=== PATIENT | male | born 1940 | race Caucasian/White ===

== ENCOUNTER 2016-10-18 05:26 | Inpatient (IN) | payer OTHER ==
[2016-09-25 09:32] VITALS: BMI 27.0
--- NOTE | 2016-09-25 10:21 | PAT Medication Instructions ---
Service Date Sep 25, 2016. Current Home Medication List Celecoxib (CeleBREX), 200 MG PO BID Fluticasone Prop/Salmeterol (Advair Diskus 250/50 60 Dose), 1 PUFF INH BID Hydrochlorothiazide (Hctz), 25 MG PO QAM Ipratropium-Albuterol (Combivent Respimat), 1 PUFFS INH QID Lisinopril (Lisinopril), 1 TAB PO QAM Menthol (Topical Analgesic) (Biofreeze Roll-On), 1 APPL TOP QID Ranitidine (Zantac), 150 MG PO QAM Tamsulosin Hcl (Flomax), 0.4 MG PO HS Medication Instructions For Your Scheduled Surgery - Hold the following medications 24 hours prior to surgery: Menthol (Topical Analgesic) (Biofreeze Roll-On), 1 APPL TOP QID Cialis - Hold the following medications the morning of surgery: Lisinopril (Lisinopril), 1 TAB PO QAM Hydrochlorothiazide (Hctz), 25 MG PO QAM Celecoxib (CeleBREX), 200 MG PO BID (can continue per surgeon) - Take the following medications the morning of surgery with a sip of water: Ranitidine (Zantac), 150 MG PO QAM Ipratropium-Albuterol (Combivent Respimat), 1 PUFFS INH QID Fluticasone Prop/Salmeterol (Advair Diskus 250/50 60 Dose), 1 PUFF INH BID - Take the following medications as scheduled the night before surgery: Tamsulosin Hcl (Flomax), 0.4 MG PO HS Ipratropium-Albuterol (Combivent Respimat), 1 PUFFS INH QID Fluticasone Prop/Salmeterol (Advair Diskus 250/50 60 Dose), 1 PUFF INH BID If you have any questions please call us at [phone] or [phone] ( Malika) or [phone]
[2016-09-25 11:27] LABS: BASO % 0.8 %; BASO ABS # 0.05 K/uL (0-0.2); COMPLETE YES; EOS % 2.6 %; HEMATOCRIT 39.7 % (42-52); IG% 0.2 %; LYMPH % 21.4 %; LYMPH ABS # 1.39 K/uL (1.2-3.4); MEAN CELL VOLUME 92.5 fL (80-100); MEAN CORPUSCULAR HEMOGLOBIN 31.7 pg (25-34); MEAN CORPUSCULAR HGB CONC 34.3 g/dl (32-36); MEAN PLATELET VOLUME 9.9 fL (7.4-10.4); MONO % 7.1 %; NEUT % 67.9 %; PLATELET COUNT 208 K/uL (130-400); RED BLOOD COUNT 4.29 M/uL (4.7-6.1); WHITE BLOOD COUNT 6.49 K/uL (4.8-10.8)
[2016-09-25 11:37] LABS: PARTIAL THROMBOPLASTIN RATIO 1.1; PROTHROMBIN TIME (PATIENT) 10.9 SECONDS (9.0-12.0)
[2016-09-25 11:53] LABS: BUN/CREATININE RATIO 18.4 (10-20); C-REACTIVE PROTEIN 0.41 mg/dl (0-0.29); CALCIUM 9.3 mg/dl (8.5-10.1); CREATININE 1.4 mg/dl (0.60-1.40); POTASSIUM 4.2 mmol/L (3.5-5.1)
--- NOTE | 2016-10-13 10:38 | HISTORY & PHYSICAL EXAMINATION ---
DATE OF ADMISSION: 10/18/2016 CHIEF COMPLAINT: Left hip pain. HISTORY OF PRESENT ILLNESS: This is a 76-year-old very active gentleman who is well known to me from previous right hip replacement done in 2013. He has done well on this side. Over the past 2 years, he has developed increased pain and discomfort in his left hip and groin area. He has been managed by my partner Dr. Elias. He had 2 intraarticular hip joint injections. The first one helped quite a bit, but the second one did not help much at all. He describes groin pain, thigh pain. It is limiting his activities. He would like to have his left hip replaced. PAST MEDICAL HISTORY: 1. Hypertension. 2. COPD. Quit smoking 10 months ago. 3. Arthritis. PAST SURGICAL HISTORY: Include: 1. Right total hip replacement done 03/23/2014. 2. Appendectomy. ALLERGIES: PENICILLIN WHICH CAUSES HIVES. NO RESPIRATORY PROBLEMS. CURRENT MEDICINES: Include: 1. Lisinopril 15 mg a day. 2. Hydrochlorothiazide 25 mg. 3. Celebrex 200 mg. 4. Flex-a-min. SOCIAL HISTORY: A 76-year-old gentleman. He is a patient of Dr. Payton. He is quite active. He recently quit smoking 10 months ago. FAMILY HISTORY: Noncontributory. REVIEW OF SYSTEMS: Significant for COPD. Denies any chest pain or shortness of breath. No history of DVT or PE. No bleeding problems. PHYSICAL EXAMINATION: GENERAL: Reveals a healthy pleasant elderly male. He looks to be in good health. HEAD, EYES, EARS, NOSE, AND THROAT EXAMINATION: Benign. NECK: Supple. No lymphadenopathy. LUNGS: Clear to auscultation. HEART: Has a regular rate and rhythm. ABDOMEN: Soft, nontender, nondistended. EXTREMITY EXAMINATION: Grossly neurovascularly intact except as follows: Examination of the left leg reveals the patient walks with a slight bit of a limp. He is about a 0.5 cm short on the left side compared to the right. He does have pain with any type of hip motion. He has got limited internal rotation to neutral. External rotation at 20 degrees. Negative straight leg raise. X-RAYS: X-rays of the left hip revealed advanced left hip DJD. He has got complete loss of his superior joint space. This has progressed significantly over the past year. The right hip replacement looks to be in good position. ASSESSMENT: A 76-year-old gentleman 2.5 years out from right hip replacement with advanced left hip degenerative joint disease gradually progressive over the past 2 years. He has failed conservative treatment and would like to have his left hip replaced. PLAN: We are going to take him to the operating room and do a left total hip replacement. The risks and benefits of this procedure were explained to the patient including but not limited to DVT, PE, , infection, neurological injury, vascular injury, bleeding problem, pain, range of motion, stiffness, failure to relieve his symptoms, incomplete relief of symptoms, need for further surgery in the future, leg length inequality, nerve palsy, dislocation, need for blood transfusion, etc. The patient understands and desires to proceed. Informed consent was obtained. We did talk to him about holding his lisinopril the morning of surgery. He is planning to be discharged to home with some home health using the [email or web address] home health program. I will see him back 2 weeks postop.
[2016-10-18] VITALS (24 sets, daily range): BP systolic 102–136; BP diastolic 56–80; PULSE 64–85; TEMP 36.3–37.4; O2SAT 92–98; Ht 177.8 cm; Wt 84.9 kg
[~2016-10-18] VITALS: Ht 177.8 cm; Wt 84.9 kg
[~2016-10-18 05:26] MED LIST: CIALIS; CLB/200 PO; LSN20 PO; MENT1800 TOP; TAMS0.4C38 PO
[2016-10-18] MEDS ORDERED: LACTATED RINGER'S 500 ML IV SCH (06:00)
[2016-10-18] MEDS ORDERED: VANCOMYCIN INJ 1,250 MG in SODIUM CHLORIDE 0.9% 250ML 250 ML IV SCH (06:00)
[2016-10-18] MEDS ORDERED: SCOPOLAMINE 1.5 MG TDSY TD SCH (06:00)
[2016-10-18] MEDS ORDERED: LACTATED RINGER'S 1000ML IV SCH (06:00)
[2016-10-18] MEDS ORDERED: FAMOTIDINE 20 MG TAB PO SCH (06:00)
[2016-10-18] MEDS ORDERED: TRANEXAMIC ACID INJ 1,000 MG in SODIUM CHLORIDE 0.9% 100ML 100 ML IV SCH (06:00)
[2016-10-18] MEDS ORDERED: ACETAMINOPHEN 500 MG TAB PO SCH (06:00)
[2016-10-18] MEDS ORDERED: GABAPENTIN 300 MG CAP PO SCH (06:00)
[2016-10-18] MEDS ORDERED: METOCLOPRAMIDE HCL 10 MG TAB PO SCH (06:00)
[2016-10-18] MEDS ORDERED: MIDAZOLAM HCL 1 MG/ML 2ML VIAL ONE ×2 (06:17→07:31)
[2016-10-18] MEDS ORDERED: FENTANYL CITRATE INJ 50 MCG/1 ML 2 ML VIAL ONE (06:17)
[2016-10-18] MEDS ORDERED: PROPOFOL IV EMULSION 10 MG/ML 20 ML VIAL IV ONE (06:19)
[2016-10-18] MEDS ORDERED: MoRPHine SULFATE PF 1 MG/ML 10 ML AMP/VIAL ONE (06:22)
[2016-10-18] MEDS ORDERED: BUPIVACAINE 0.5 % 5 MG/1 ML PF 10ML VIAL ONE (06:31)
[2016-10-18] MEDS ORDERED: BUPIVACAINE LIPOSOME 1/3% 266 MG/20 ML VIAL INFIL ONE (06:50)
--- NOTE | 2016-10-18 06:50 | History & Physical Bridge Note ---
H&P Re-Evaluation Bridge Note: I have examined the patient, reviewed the History & Physical and in the interval since the performance of the History & Physical I have noted the following changes of clinical significance: No changes noted
[2016-10-18] MEDS ORDERED: NALOXONE HCL INJ 0.08 MG in SYRINGE 1.8 ML IV PRN (07:22)
[2016-10-18] MEDS ORDERED: SODIUM CHLORIDE 0.9% 1000ML 1,000 ML IV PRN (07:22)
[2016-10-18] MEDS ORDERED: LACTATED RINGER'S 1000ML 500 ML IV PRN (07:22)
[2016-10-18] MEDS ORDERED: NALOXONE HCL INJ 1 MG in SODIUM CHLORIDE 0.9% 1000ML 1,000 ML IV PRN (07:22)
[2016-10-18] MEDS ORDERED: ATROPINE SULFATE 0.1 MG/ML 5ML SYR IV PRN (07:30)
[2016-10-18] MEDS ORDERED: EpHEDrine SULFATE INJ 50 MG/ML AMP IV PRN ×2 (07:30)
[2016-10-18] MEDS ORDERED: MoRPHine SULFATE 2 MG/ML CARP IV PRN (07:30)
[2016-10-18] MEDS ORDERED: ONDANSETRON INJ 2 MG/ML 2 ML VIAL IV PRN (07:30)
[2016-10-18] MEDS ORDERED: NALBUPHINE HCL INJ 10 MG/ML AMP IV PRN (07:30)
[2016-10-18] MEDS ORDERED: MoRPHine SULFATE PF 1 MG/ML 10 ML AMP/VIAL INT SPINAL PRN (07:30)
[2016-10-18] MEDS ORDERED: NALOXONE HCL 0.4 MG/1 ML VIAL/CARP IV PRN (07:30)
[2016-10-18] MEDS ORDERED: FENTANYL CITRATE INJ 50 MCG/1 ML 2 ML VIAL IV PRN (07:30)
[2016-10-18] MEDS ORDERED: DiphenhydrAMINE HCL 50 MG/ML VIAL IV PRN (07:30)
[2016-10-18] MEDS ORDERED: NO NARCOTICS OR SEDATIVES SCH (07:30)
[2016-10-18] MEDS ORDERED: PHENYLEPHRINE HCL INJ 10 MG/ML VIAL ONE (07:50)
[2016-10-18] MEDS ORDERED: BACITRACIN 50000 UNIT VIAL IR ONE (08:25)
[2016-10-18] MEDS ORDERED: BUPIVACAINE/EPINEPHRINE 0.5% MPF 1:200,000 30 ML VIAL INJ ONE (08:25)
[2016-10-18] MEDS ORDERED: MAGNESIUM HYDROXIDE SUSP 30 ML UDC PO PRN (08:45)
[2016-10-18] MEDS ORDERED: BISACODYL 10 MG SUPP PR PRN (08:45)
[2016-10-18] MEDS ORDERED: ALUMINUM/MAGNESIUM/SIMETH (MAALOX MAX) 30 ML UDC PO PRN (08:45)
[2016-10-18] MEDS ORDERED: SILVER SULFADIAZINE 1% CR 50 GM JAR EXT PRN (08:45)
[2016-10-18] MEDS ORDERED: TAMSULOSIN HCL 0.4 MG CAP PO PRN (08:45)
--- NOTE | 2016-10-18 08:45 | [facility] Post Operative Brief Note ---
Immediate Operative Summary Operative Date Oct 18, 2016. Pre-Operative Diagnosis Degenerative Joint Disease Left Hip. Post-Operative Diagnosis Same as preoperative. Procedure(s) Performed Left Total Hip Arthroplasty Surgeon Aviation Medicine Specialist Surgeon(s) Jacob Fountain PA-C Estimated Blood Loss 300ML Findings Left Hip DJD Fluids (cc crystalloids) 1300 cc Specimens A. Left Femoral Head Drains None Anesthesia Spinal Complication(s) None Disposition Recovery Room / PACU
--- NOTE | 2016-10-18 09:24 | DIAGNOSTIC IMAGING REPORT ---
AP PELVIS, CROSSTABLE LATERAL LEFT HIP History: Left total hip arthroplasty. Degenerative arthritis. Postop. FINDINGS: The patient is status post a left total hip arthroplasty. The hardware is intact. No fracture or dislocation. Skin yarely are in place. IMPRESSION: Left total hip arthroplasty. No evidence for hardware complication. Electronically signed by: Mt Burroughs M.D. 10/18/2016 9:22 AM Dictated Date/Time: 10/18/2016 9:22 AM
--- NOTE | 2016-10-18 09:27 | Anesthesiology Progress Note ---
Anesthesia Post Op Note Date & Time Oct 18, 2016 at 09:27 Vital Signs Pain Intensity: 0 Vital Signs Past 12 Hours Date Time Temp Pulse Resp B/P Pulse Ox O2 Delivery O2 Flow Rate FiO2 10/18/16 09:15 61 20 118/60 94 Nasal Cannula 2 10/18/16 09:05 66 20 106/53 92 Nasal Cannula 2 10/18/16 08:55 69 21 118/58 94 Nasal Cannula 2 10/18/16 08:46 36.2 68 14 104/50 99 Nasal Cannula 2 10/18/16 06:11 36.7 71 20 125/59 94 Room Air Notes Mental Status: alert / awake / arousable, participated in evaluation Pt Amnestic to Procedure: Yes Nausea / Vomiting: adequately controlled Pain: adequately controlled Airway Patency, RR, SpO2: stable & adequate BP & HR: stable & adequate Hydration State: stable & adequate Neuraxial Anesthesia: was administered, sensory block is resolving Anesthetic Complications: no major complications apparent
[2016-10-18] MEDS ORDERED: KETOROLAC TROMETHAMINE 15 MG/ML VIAL IV. SCH (12:00)
[2016-10-18] MEDS: MULTIVITAMIN TAB PO SCH (12:21)
[2016-10-18] MEDS: PANTOprazole SOD 40 MG TAB PO SCH (12:21)
[2016-10-18] MEDS: DOCUSATE SODIUM 100 MG CAP PO SCH ×2 (12:21→20:22)
[2016-10-18] MEDS: D5W AND 1/2NSS + 20MEQ KCL 1,000 ML IV SCH ×2 (12:24→20:18)
[2016-10-18] MEDS: FERROUS GLUCONATE 324 MG TAB PO SCH ×2 (12:30→18:59)
[2016-10-18] MEDS: MENTHOL-ZINC OXIDE 360 APPLN/120 GM TUBE EXT SCH ×3 (13:00→20:18)
[2016-10-18] MEDS: IPRATROPIUM BROMIDE/ALBUTEROL respimat INH INH SCH ×3 (13:02→20:20)
[2016-10-18] MEDS: FLUTICASONE/SALMETEROL 250/50 (ADVAIR) 14 PUFF/1 INHALER INH SCH ×2 (13:02→20:20)
[2016-10-18] MEDS: ACETAMINOPHEN 500 MG TAB PO SCH ×2 (13:44→21:35)
[2016-10-18] MEDS: LISINOPRIL 20 MG TAB PO SCH (13:44)
[2016-10-18] MEDS: RANITIDINE HCL 150 MG TAB PO SCH (13:44)
[2016-10-18] MEDS: HYDROCHLOROTHIAZIDE 25 MG TAB PO SCH (13:44)
[2016-10-18] MEDS ORDERED: TRANEXAMIC ACID INJ 1,000 MG in SODIUM CHLORIDE 0.9% 100ML 100 ML IV ONE (15:00)
--- NOTE | 2016-10-18 15:39 | PROGRESS NOTE ---
DATE: 10/18/2016 SUBJECTIVE: A 76-year-old gentleman postop from a left total hip replacement. He is doing well. Not really having any pain. No chest pain or shortness of breath. Not feeling dizzy or lightheaded. OBJECTIVE: VITAL SIGNS: Temperature 36.8. Vital signs stable. PHYSICAL EXAMINATION: GENERAL: Reveals a healthy, pleasant, elderly male. He is sitting up in bed and looks quite comfortable. He is talking to his family. LUNGS: Clear to auscultation. HEART: Has a regular rate and rhythm. ABDOMEN: Soft, nontender, nondistended. EXTREMITIES: Grossly neurovascularly intact except as follows: Examination of the left leg reveals the leg to be well aligned. Dressing is clean, dry and intact. His hip is located. He is neurologically intact. He can dorsiflex and plantarflex his foot appropriately. X-RAYS: X-rays of the left hip from recovery room reviewed. It shows a left uncemented total hip arthroplasty. Components looked to be in good position. No signs of problems. ASSESSMENT: A 76-year-old gentleman postop from a left total hip replacement, doing well. His hip is located. He is neurologically intact. His pain is controlled. PLAN: 1. DVT prophylaxis including thigh-high TEDs, SCDs, and aspirin twice a day. 2. PT/OT. Weightbearing as tolerated. Right total hip protocol. 3. Pain control. Doing well with current pain regimen. 4. IV antibiotics x24 hours. 5. Disposition: He is hoping to be discharged to home with some home health once adequately recovered.
[2016-10-18] MEDS: CHECK SCOPOLAMINE PATCH PLACEMENT SCH (16:22)
--- NOTE | 2016-10-18 16:27 | OPERATIVE REPORT ---
DATE OF OPERATION: 10/18/2016 SURGEON: Sundar Roth MD CORPORATE SECURITIES RESEARCH ANALYST: KAYLIN Magana PREOPERATIVE DIAGNOSIS: Left hip degenerative joint disease. POSTOPERATIVE DIAGNOSIS: Same. PROCEDURE PERFORMED: Left uncemented total hip arthroplasty. COMPLICATIONS: None. ESTIMATED BLOOD LOSS: 300 mL. FLUID REPLACEMENT: 1300 mL crystalloid fluid replacement. ANESTHESIA: Spinal. DRAINS: None. SPECIMENS: Left femoral head sent for pathology. OPERATIVE INDICATIONS: The patient is a 76-year-old very active gentleman who has had a long history of hip problems in the past. He underwent a right hip replacement about 2-1/2 years ago and has done well from this. Over the past 2 years, he developed increased pain and discomfort in his left hip. He has been unresponsive to conservative treatment. X-rays showed progressive and advanced left hip DJD. The patient elected to proceed with operative treatment. OPERATIVE FINDINGS: Operative findings revealed advanced left hip DJD. 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 Fairly stiff hip as well. He did have a moderate sized hip joint effusion. OPERATIVE IMPLANTS: Operative implants consisted of: 1. Biomet G7 size 54-mm acetabular shell. 2. An apex hole eliminator. 3. A 6.5 cancellous acetabular screws, one at 35 mm length and one at 25 mm in length. 4. A highly cross-linked polyethylene insert with a 54 mm outer diameter and 36 mm inner diameter. 5. A DePuy size 15 small stature AML femoral stem. 6. A +5/36 mm metal articular ball. OPERATIVE PROCEDURE: The patient was taken to the operating room, identified and placed on the operating table in the supine position. All contact areas were appropriately padded. IV antibiotics were provided by the anesthesia team. A spinal anesthetic had been implemented in the holding area. Peña catheter was placed in sterile fashion. The patient was then placed in the right lateral decubitus position. An axillary roll was placed. A Stulberg hip positioner was used for positioning. The left hip and leg were then prepped and draped in the usual sterile fashion. A Posterolateral approach to the hip was then performed through a curvilinear incision centered over the greater trochanter. Sharp dissection was carried out through the subcutaneous tissue down to the level of the IT band and gluteal fascia. The IT band and gluteal fascia were then incised longitudinally in line with skin incision. The underlying greater trochanteric bursa was excised. Of note, his hip abductor muscles were unusually well developed. The piriformis and external rotators were then tagged and taken off the posterior aspect of the femur. Great care was taken throughout the procedure to protect the sciatic nerve at all times. Posterior capsulotomy was then performed leaving a large flap for later repair. Hip was internally rotated and dislocated. Femoral neck osteotomy cut was then made with the final cut 12 mm above the lesser trochanter. Femoral head was removed and sent for pathology. The femur was retracted anteriorly. Attention was then drawn to the acetabulum. The acetabular labrum was excised. The pulvinar fat was excised. Sequential reaming of the acetabulum was then performed beginning with a size 47 and progressing up to a 53. A 54-mm Biomet G7 acetabular shell was then placed in about 40 degrees of lateral opening and 20 degrees of anteversion. It was fixed with two 6.5 cancellous acetabular screws. A trial liner was placed. Attention was then drawn to the femur. Proximal femur was entered with cookie cutter followed by canal finder and lateralizing reamer. Sequential reaming of the femur was then performed beginning with a size 10 and progressing up to 14.5. We got excellent chatter at 14.5. We broached beginning with a size 10.5 small broach and progressing to a 15 small. I did not feel like I could likely get the 15 large broach in. The other side had a 13.5 large stem and I could not quite get that to the calcar at that time. Therefore, we elected to stick with a small implant. A calcar reamer was used to smoothen off to cart calcar. We then trialed the hip and the +5/36 mm articular ball provided full stability and full extension and external rotation and flexion to 90 degrees, internal rotation to 60+ degrees. Leg lengths appropriately. Attention was then drawn toward placement of permanent components. All trial components were removed. An apex hole eliminator was placed. Highly cross-linked polyethylene liner was placed. A 15 small stature AML femoral stem was placed. We got excellent scratch fit. A +5/36 mm metal articular ball was placed. Hip was located and once again found to be stable. Attention was then drawn toward closing. The wound was irrigated with copious amounts of pulsatile lavage solution. The posterior capsule and external rotators were repaired through drill holes in the posterior trochanter with #2 Ti-Cron suture. The IT band and gluteal fascia were then closed with #1 PDS suture in running fashion. The subcutaneous tissues were then closed with 2 layers of the deep layer with #1 Vicryl suture and subcutaneous tissues with 2-0 Dexon suture in a buried interrupted fashion. Skin was closed skin yarely. Leg was then cleaned and dried and a sterile dressing of Xeroform, 4 x 4, sterile ABD pad and foam tape was applied. The patient then transferred to the recovery room in stable condition. The patient tolerated the procedure well with no complications. All needle and sponge counts were correct at the end of the operation. I attest to the content of the Intraoperative Record and any orders documented therein. Any exceptions are noted below. SANJANAD
[2016-10-18] MEDS ORDERED: VANCOMYCIN INJ 1,300 MG in SODIUM CHLORIDE 0.9% 250ML 250 ML IV SCH (19:00)
[2016-10-18] MEDS: TAMSULOSIN HCL 0.4 MG CAP PO SCH (20:22)
[2016-10-18] MEDS: ASPIRIN 325 MG ECTAB PO SCH (20:22)
[2016-10-19] VITALS (10 sets, daily range): BP systolic 90–154; BP diastolic 53–65; PULSE 74–91; TEMP 36.7–37.4; O2SAT 91–96
[2016-10-19] MEDS: CHECK SCOPOLAMINE PATCH PLACEMENT SCH ×3 (00:08→19:03)
[2016-10-19] MEDS ORDERED: DC INTRASPINAL MORPHINE SCH (01:00)
[2016-10-19] MEDS ORDERED: ZOLPIDEM TARTRATE 5 MG TAB PO PRN (01:01)
[2016-10-19] MEDS ORDERED: MoRPHine SULFATE 2 MG/ML CARP IV PRN (01:01)
[2016-10-19] MEDS ORDERED: ONDANSETRON INJ 2 MG/ML 2 ML VIAL IV PRN (01:01)
[2016-10-19] MEDS ORDERED: METOCLOPRAMIDE HCL INJ 5 MG/ML 2 ML VIAL IV PRN (01:01)
[2016-10-19] MEDS ORDERED: DiphenhydrAMINE HCL 50 MG/ML VIAL IV PRN (01:01)
[2016-10-19] MEDS: KETOROLAC TROMETHAMINE 15 MG/ML VIAL IV. SCH ×2 (01:39→08:29)
[2016-10-19] MEDS: D5W AND 1/2NSS + 20MEQ KCL 1,000 ML IV SCH (04:41)
[2016-10-19] MEDS: ACETAMINOPHEN 500 MG TAB PO SCH ×3 (05:48→20:55)
[2016-10-19 07:29] LABS: BASO % 0.4 %; BASO ABS # 0.03 K/uL (0-0.2); COMPLETE YES; EOS % 2.2 %; HEMATOCRIT 29.6 % (42-52); IG% 0.3 %; LYMPH % 14.3 %; LYMPH ABS # 1.13 K/uL (1.2-3.4); MEAN CELL VOLUME 91.9 fL (80-100); MEAN CORPUSCULAR HEMOGLOBIN 31.4 pg (25-34); MEAN CORPUSCULAR HGB CONC 34.1 g/dl (32-36); MEAN PLATELET VOLUME 9.5 fL (7.4-10.4); MONO % 9.6 %; NEUT % 73.2 %; PLATELET COUNT 157 K/uL (130-400); RED BLOOD COUNT 3.22 M/uL (4.7-6.1); WHITE BLOOD COUNT 7.88 K/uL (4.8-10.8)
--- NOTE | 2016-10-19 07:37 | Anesthesiology Progress Note ---
Anesthesia Post Op Note Date & Time Oct 19, 2016 at 07:36 Vital Signs Pain Intensity: 0.0 Vital Signs Past 12 Hours Date Time Temp Pulse Resp B/P Pulse Ox O2 Delivery O2 Flow Rate FiO2 10/19/16 07:19 36.9 75 17 92/53 94 Room Air 10/19/16 03:55 37.3 74 16 92/53 96 Nasal Cannula 2.0 10/19/16 01:00 18 94 10/18/16 23:42 18 94 10/18/16 23:42 94 Nasal Cannula 1.5 10/18/16 23:30 37.4 85 16 102/56 95 Nasal Cannula 1.0 10/18/16 23:15 94 10/18/16 22:20 95 10/18/16 21:20 97 10/18/16 20:20 95 10/18/16 20:06 36.9 82 16 118/57 93 Nasal Cannula 2.0 Notes Mental Status: alert / awake / arousable, participated in evaluation Pt Amnestic to Procedure: Yes Nausea / Vomiting: adequately controlled Pain: adequately controlled Airway Patency, RR, SpO2: stable & adequate BP & HR: stable & adequate Hydration State: stable & adequate Neuraxial Anesthesia: was administered, sensory block resolved Anesthetic Complications: no major complications apparent
[2016-10-19 08:01] LABS: BUN/CREATININE RATIO 13.7 (10-20); CALCIUM 7.6 mg/dl (8.5-10.1); CREATININE 1.6 mg/dl (0.60-1.40); POTASSIUM 3.9 mmol/L (3.5-5.1)
[2016-10-19] MEDS: IPRATROPIUM BROMIDE/ALBUTEROL respimat INH INH SCH ×4 (08:29→20:54)
[2016-10-19] MEDS: FLUTICASONE/SALMETEROL 250/50 (ADVAIR) 14 PUFF/1 INHALER INH SCH ×2 (08:29→20:54)
[2016-10-19] MEDS: MENTHOL-ZINC OXIDE 360 APPLN/120 GM TUBE EXT SCH ×4 (08:30→21:00)
[2016-10-19] MEDS: MULTIVITAMIN TAB PO SCH (08:30)
[2016-10-19] MEDS: FERROUS GLUCONATE 324 MG TAB PO SCH ×3 (08:30→19:05)
[2016-10-19] MEDS: PANTOprazole SOD 40 MG TAB PO SCH (08:30)
[2016-10-19] MEDS: ASPIRIN 325 MG ECTAB PO SCH ×2 (08:30→20:56)
[2016-10-19] MEDS: RANITIDINE HCL 150 MG TAB PO SCH (08:30)
[2016-10-19] MEDS: HYDROCHLOROTHIAZIDE 25 MG TAB PO SCH (08:31)
[2016-10-19] MEDS: LISINOPRIL 20 MG TAB PO SCH (08:31)
[2016-10-19] MEDS: DOCUSATE SODIUM 100 MG CAP PO SCH (08:31)
[2016-10-19] MEDS: TRAMADOL HCL 50 MG TAB PO PRN ×2 (12:59→21:04)
--- NOTE | 2016-10-19 13:37 | PROGRESS NOTE ---
DATE: 10/19/2016 SUBJECTIVE: A 76-year-old gentleman postop day 1 from a left total hip replacement. He is doing well. Pain is controlled. He is just sore. No chest pain or shortness of breath. Not feeling dizzy or lightheaded. OBJECTIVE: VITAL SIGNS: Temperature is 36.9. Vital signs stable. PHYSICAL EXAMINATION: GENERAL: Reveals a pleasant, middle-aged male. He is sitting up at his bedside chair and looks pretty comfortable this morning. LUNGS: Clear to auscultation. HEART: Regular rate and rhythm. ABDOMEN: Soft, nontender, nondistended. EXTREMITIES: Grossly neurovascularly intact except as follows: Examination of the left lower extremity reveals the dressing to be clean, dry and intact. Thigh is soft and supple. Hip is located. He is neurologically intact. LABORATORY DATA: Hemoglobin 10.1, hematocrit 29.6. Electrolytes are stable. Creatinine is just slightly elevated at 1.6. ASSESSMENT: A 76-year-old gentleman postop day 1 from left total hip replacement, doing pretty well. Pain is controlled. Hip is located. He is neurologically intact. PLAN: 1. DVT prophylaxis including thigh-high TEDs, SCDs, and aspirin twice a day. 2. PT/OT. Weightbearing as tolerated. Left total hip protocol. 3. Pain control, doing pretty well with current pain regimen. 4. Disposition: Plan to discharge to home with some home health once adequately recovered. 5. Slightly elevated creatinine. When are going to stop any Toradol and just follow his creatinine for now.
[2016-10-19] MEDS ORDERED: NURSING VERBAL MED ORDER ONE (15:15)
[2016-10-19] MEDS ORDERED: LOPERAMIDE HCL 2 MG CAP PO PRN (15:15)
[2016-10-19] MEDS ORDERED: ACET-1138 PO (20:07)
[2016-10-19] MEDS ORDERED: ULT50X PO (20:07)
[2016-10-19] MEDS ORDERED: FRRG PO (20:07)
[2016-10-19] MEDS ORDERED: ASPEC325 PO (20:07)
--- NOTE | 2016-10-19 20:10 | Discharge Instructions ---
Discharge Instructions Admission Reason for Admission: Left Hip Pain, Arthritis Of Hip Discharge Discharge Diagnosis / Problem: Left Hip Replacement Discharge Goals Goal(s): Decrease discomfort, Improve function, Increase independence, Improve disease control, Therapeutic intervention Activity Recommendations Activity Limitations: per Instructions/Follow-up section Weightbearing Status: Left weightbearing Total Hip Precautions . Instructions / Follow-Up Instructions / Follow-Up ACTIVITY RECOMMENDATIONS: Physical Therapy: * Aggressive physical therapy is not usually needed. You will learn to take care of yourself safely and walk. * Follow the "Hip Precautions Instructions." * In some cases, the healthcare social worker at the hospital will arrange to have a therapist come to your house for the first couple of weeks to help you learn these skills. * You need to practice on your own or with the help of a family member as needed. * When you learn these skills, most of the therapy can be done on your own. Home Exercise: * You were shown a series of exercises in the hospital. Do these exercises three to four times each day including the exercises you were shown in physical therapy. Walking: * Get up and walk several times each day. For the first four weeks, try not to stand or walk for more than one hour at a time. If you do stand or walk for more than one hour, you will not hurt anything, but your leg will likely swell. * As you feel comfortable, you may change from the walker or crutches to a cane and then to independent walking. MEDICATIONS: New Medicine: * You will likely be taking one or more of these medicines: 1. Tramadol - Take, as directed, when you need it, every four to six hours to control your pain. 2. Iron Sulfate - Take three times each day for the month after surgery to help you replace the blood lost during surgery. 3. Aspirin - Thins your blood to lessen the chance of forming a blood clot. * The most common side effects of pain medicine and iron are nausea and constipation. If nausea or constipation is too much of a problem or if you have any questions about your new medicines or doses, call [facility] at . We will try to help you manage these issues. VERY IMPORTANT TO READ AND REVIEW" Pain: * The immediate post-operative period after hip replacement surgery is often quite painful. * You are given a prescription for pain medicine. You should take it, as directed, when you need it, especially before physical therapy and before going to bed. Pain that interferes with sleep is very common and can last several months. * You will likely need pain medicine for the first two to four weeks. It will not stop all of the pain. The pain will lessen and as you feel better, you may change to milder pain medicine such as Tylenol. * The most common side effects of pain medicine are nausea and constipation, so don't take more than you need. SPECIAL CARE INSTRUCTIONS: TEDs/Elastic Stockings: * The white elastic stockings help limit swelling and prevent blood clots from forming in your legs. The more you wear them, the more they work. * Wear them for six weeks. Prevention of Infection: * Take antibiotics one hour before any dental cleaning, dental work, urological procedure, gastrointestinal procedure or any invasive surgery in order to prevent your new joint from getting infected. * You may get the antibiotics from the doctor performing the procedure or you may call our office at before and we will call in a prescription to the pharmacy of your choice. Things to Watch For: * Drainage from the incision site that occurs more than one week after your surgery. * Severely increased leg pain or swelling. * Increased redness at the incision site. * Fever above 102 degrees Fahrenheit. * Unusual chest pain or shortness of breath. * Unusual pain or burning with urination. Call [facility] at with any of the above problems or if you have any questions about your medicines or recovery. FOLLOW UP VISIT: Make an appointment to see your doctor for approximately two weeks after surgery for a progress check and staple removal by calling the office at . Current Hospital Diet Patient's current hospital diet: Regular Diet Discharge Diet Recommended Diet: Regular Diet Procedures Procedures Performed: Left Total Hip Arthroplasty Pending Studies Studies pending at discharge: no Laboratory Results Lipid Panel Test 08/03/16 09:03 Range/Units Triglycerides Level 195 H 0-150 mg/dl Cholesterol Level 180 0-200 mg/dl HDL Cholesterol 40 mg/dl Cholesterol/HDL Ratio 4.5 LDL Cholesterol, Calculated 101 mg/dl Medical Emergencies . Who to Call and When: Medical Emergencies: If at any time you feel your situation is an emergency, please call 911 immediately. . Non-Emergent Contact Non-Emergency issues call your: Surgeon . "Provider Documentation" section prepared by Sundar Roth. VTE Core Measure Inpt VTE Proph given/why not?: Other Anticoagulation, T.E.D. Damaris, SCD's
[2016-10-19] MEDS: TAMSULOSIN HCL 0.4 MG CAP PO SCH (20:55)
[2016-10-20] MEDS: CHECK SCOPOLAMINE PATCH PLACEMENT SCH
[2016-10-20] MEDS: ACETAMINOPHEN 500 MG TAB PO SCH (05:34)
[2016-10-20 06:37] LABS: BUN/CREATININE RATIO 12.1 (10-20); CALCIUM 8.1 mg/dl (8.5-10.1); CREATININE 1.8 mg/dl (0.60-1.40); POTASSIUM 3.8 mmol/L (3.5-5.1)
[2016-10-20 07:38] VITALS: BP 104/58; PULSE 86; TEMP 36.8; O2SAT 92
[2016-10-20] MEDS: FERROUS GLUCONATE 324 MG TAB PO SCH (08:52)
[2016-10-20] MEDS: FLUTICASONE/SALMETEROL 250/50 (ADVAIR) 14 PUFF/1 INHALER INH SCH (08:52)
[2016-10-20] MEDS: MULTIVITAMIN TAB PO SCH (08:53)
[2016-10-20] MEDS: ASPIRIN 325 MG ECTAB PO SCH (08:53)
[2016-10-20] MEDS: IPRATROPIUM BROMIDE/ALBUTEROL respimat INH INH SCH (08:53)
[2016-10-20] MEDS: RANITIDINE HCL 150 MG TAB PO SCH (08:54)
[2016-10-20] MEDS: PANTOprazole SOD 40 MG TAB PO SCH (08:54)
[2016-10-20] MEDS: MENTHOL-ZINC OXIDE 360 APPLN/120 GM TUBE EXT SCH (08:56)
[2016-10-20] MEDS: LISINOPRIL 20 MG TAB PO SCH (09:00)
[2016-10-20] MEDS: HYDROCHLOROTHIAZIDE 25 MG TAB PO SCH (09:00)
--- NOTE | 2016-10-20 09:43 | PROGRESS NOTE ---
DATE: 10/20/2016 DATE: 10/20/2016. SUBJECTIVE: A 76-year-old gentleman postop day 2 from a left total hip replacement. He is doing well. A little bit of diarrhea yesterday but doing better this morning. His pain is controlled. Denies any chest pain or shortness of breath. OBJECTIVE: VITAL SIGNS: Temperature is 36.8. Vital signs stable. PHYSICAL EXAMINATION: GENERAL: Pleasant elderly male. He is lying in bed, appears awake, alert and oriented and appropriate. LUNGS: Clear to auscultation. HEART: Regular rate and rhythm. ABDOMEN: Soft, nontender, nondistended. Good bowel sounds. No discomfort at all. EXTREMITY EXAMINATION: Examination of the left lower extremity reveals the incision to be clean, dry and intact. Leg lengths were equal. He can dorsiflex and plantarflex his foot appropriately. He is neurologically intact. ASSESSMENT: A 76-year-old gentleman postop day 2 from left total hip replacement, doing pretty well. A little diarrhea yesterday but improved after some medicine. His pain is reasonably well controlled. He did pretty well in therapy. PLAN: 1. DVT prophylaxis including thigh-high TEDs, SCDs, and aspirin twice a day. 2. PT/OT. Weight bear as tolerated. Left total hip protocol. 3. Pain control, doing pretty well with current pain regimen. 4. Disposition: Plan to discharge to home with some home health once adequately recovered. 5. Elevated creatinine - we will hold all NSAIDS and encourage PO intake. Follow-up as outpatient. SHRADDHA
[2016-10-20 10:15] VITALS: BP 104/58; PULSE 86; TEMP 36.8; O2SAT 92
[2016-10-20] MEDS: TRAMADOL HCL 50 MG TAB PO PRN (12:06)
--- NOTE | 2016-10-29 13:55 | DISCHARGE SUMMARY ---
ADMITTING PHYSICIAN AND SURGEON: Dr. Roth. ADMITTING DIAGNOSIS: Left hip degenerative joint disease. SURGERY PERFORMED: Left total hip arthroplasty. SECONDARY DIAGNOSES: Hypertension, COPD, arthritis. CONSULTS: None obtained. HISTORY AND PHYSICAL EXAMINATION: Well documented in the patient's chart. HOSPITAL COURSE: The patient was admitted on 10/18/2016 underwent total hip arthroplasty, tolerated the procedure well. There were no complications. He was transferred to the PACU postoperatively and later to the orthopedic floor for further care. He was given vancomycin for antibiotic prophylaxis, YOVANNY stockings, SCDs and aspirin for DVT prophylaxis. Hemoglobin, hematocrit and vital signs were monitored during his hospital stay and remained stable. He developed some mild postoperative anemia with a hemoglobin of 10.1 and did not require any blood transfusions. He had some diarrhea postoperatively he was given some medication for which resolved. He also had some elevated creatinine postoperatively and his NSAIDs were discontinued. There were no complications during his hospital stay. By postoperative day 2, he was tolerating a general diet, pain was controlled with oral pain medicine. He was participating in physical therapy and had no signs or symptoms of deep vein thrombosis. On postop day 2, he was discharged home in good condition, set up with home health services, given printed discharge instructions including prescriptions for extra strength Tylenol, aspirin 325 mg b.i.d., iron supplement and tramadol. Continue his home medications with the exception of Celebrex which was discontinued. Continue physical therapy, weightbearing as tolerated and YOVANNY stockings, total hip precautions and follow up in 10-12 days or sooner if there are any problems or concerns.
[2017-02-02] MEDS ORDERED: HYDR25TA4 PO (13:19)
[2017-02-02] MEDS ORDERED: ZNTT/150 PO (13:19)
[2017-06-04] MEDS ORDERED: TIOT1AER INH (10:13)
[2017-06-04] MEDS ORDERED: POLYSOL4 OPB (10:13)
[2017-06-04] MEDS ORDERED: FLM4 PO (10:28)
[2017-06-04] MEDS ORDERED: METO50TA7 PO (10:28)
[2017-06-04] MEDS ORDERED: ZOLP5TAB6 PO (10:28)
[2017-06-04] MEDS ORDERED: VGR25 PO (10:28)
[2017-06-04] MEDS ORDERED: PANT40TA PO (10:28)
[2017-06-04] MEDS ORDERED: ACET-1256 PO (10:28)
[2017-06-04] MEDS ORDERED: MAGN1TAB19 PO (10:28)
[2017-06-04] MEDS ORDERED: ADVIN25/60 INH (10:28)
[2017-06-04] MEDS ORDERED: LISI-725 PO (10:28)
[2017-06-04] MEDS ORDERED: CLB/200 PO (10:28)
== END 2016-10-20 14:03 | disposition home health service (06) | DRG 470 ==
LOC: ENRESERVDT → ENRESERVTM → C.ACU 05:26 → C.MSW 06:35
PROVIDERS: ADMIT Orthopaedic Surgery Sports Medicine; ATTEND Orthopaedic Surgery Sports Medicine
PROC: 0SRB02A Replacement of Left Hip Joint with Metal on Polyethylene Synthetic Substitute, Uncemented, Open Approach (ICD-10-PCS; principal; 2016-10-18 07:15)
DX: M16.12 Unilateral primary osteoarthritis, left hip (principal); I10 Essential (primary) hypertension; J44.9 Chronic obstructive pulmonary disease, unspecified; Z79.899 Other long term (current) drug therapy; Z87.891 Personal history of nicotine dependence; Z96.641 Presence of right artificial hip joint

== ENCOUNTER 2017-02-02 17:30 | Inpatient (IN) | payer OTHER ==
[~2017-02-02] VITALS: Ht 177.8 cm; Wt 85.3 kg
[~2017-02-02 17:30] MED LIST changes: +ACET-1138 PO; +ASPEC325 PO; -CLB/200 PO; +FRRG PO; +HYDR25TA4 PO; +ULT50X PO; +ZNTT/150 PO
[2017-02-02] MEDS ORDERED: ONDANSETRON INJ 2 MG/ML 2 ML VIAL IV STA ×2 (18:08→19:23)
[2017-02-02] MEDS ORDERED: SODIUM CHLORIDE 0.9% 1000ML 1,000 ML IV STA ×2 (18:08→19:23)
--- NOTE | 2017-02-02 18:13 | EMERGENCY ROOM VISIT NOTE ---
History Report prepared by Denilson: Daron Maxwell Under the Supervision of: Dr. Branden Jeronimo M.D. First contact with patient: 18:02 Chief Complaint: VOMITING Stated Complaint: VOMITING, FEVER Nursing Triage Summary: Vomiting and now dry heaves, started yesterday per pt. History of Present Illness The patient is a 76 year old male who presents to the Emergency Room with complaints of a persistent illness that started last night. He says he has not had anything to eat since the illness came on. The patient states that he has been dry heaving with nausea, and running a fever. The patient's was also concerned about the patient's weakness. Per the patient's , the patient's temperature was 102 around 2 hours ago. The patient took 2 Tylenol around an hour ago. He denies any sore throat, abdominal pain, abdominal bloating, urinary symptoms, groin pain, or bowel problems. The patient has COPD, and he notes chronic shortness of breath due to that. He uses breathing treatments at home. He denies any recent sick contacts. The patient has a history of bilateral hip replacement, but no abdominal surgeries. Source of History: patient, spouse/significant other Onset: Last night Position: other (global - illness) Timing: other (persistent) Associated Symptoms: + fevers, + nausea, + weakness, No abdominal pain (or bloating), No sorethroat, No urinary symptoms, No vomiting Note: Associated symptoms: Denies groin pain or bowel problems. Review of Systems See HPI for pertinent positives & negatives. A total of 10 systems reviewed and were otherwise negative. Past Medical & Surgical Medical Problems: (1) COPD (chronic obstructive pulmonary disease) (2) Left Hip DJD (3) Neutrophilic leukocytosis (4) Sepsis Family History Diabetes mellitus FH: cancer FH: heart disease Hypertension Social History Smoking Status: Former Smoker Alcohol Use: none Drug Use: none Marital Status: Housing Status: lives with significant other Occupation Status: retired Current/Historical Medications Scheduled Celecoxib (CeleBREX), 200 MG PO BID Fluticasone Prop/Salmeterol (Advair Diskus 250/50 60 Dose), 1 PUFF INH BID Hydrochlorothiazide (Hctz), 25 MG PO QAM Ipratropium-Albuterol (Combivent Respimat), 1 PUFF INH QID Lisinopril (Zestril), 20 MG PO QAM Magnesium Oxide (Mg Supplement (Magnesium), 1 TAB PO DAILY Ranitidine (Zantac), 150 MG PO HS Scheduled PRN Acetaminophen (Tylenol), 1,000 MG PO Q8 PRN for Pain Allergies Coded Allergies: Penicillins (Verified Allergy, Unknown, HIVES, 10/18/16) Physical Exam Vital Signs Date Time Temp Pulse Resp B/P Pulse Ox O2 Delivery O2 Flow Rate FiO2 02/02/17 20:55 94 19 93 02/02/17 20:50 89 23 96 02/02/17 20:47 99/52 02/02/17 20:45 70/53 02/02/17 20:41 90/46 02/02/17 20:20 94 26 86/53 96 02/02/17 20:16 85/51 02/02/17 20:15 78/48 02/02/17 20:10 92 36 96 02/02/17 20:00 91 37 85/42 97 02/02/17 19:50 88 26 97 02/02/17 19:45 87/48 02/02/17 19:40 91 31 97 02/02/17 19:30 102 19 86/52 85 02/02/17 19:29 36.6 98 16 86/52 94 02/02/17 19:20 93 29 96 02/02/17 19:18 92 02/02/17 19:10 87 20 94 02/02/17 19:05 94 2.0 02/02/17 19:00 95 24 86/46 91 Room Air 02/02/17 19:00 101 25 86/46 90 02/02/17 18:59 84/41 02/02/17 18:58 89 84/41 02/02/17 18:50 88 27 02/02/17 17:31 36.8 103 20 104/54 92 Room Air Physical Exam GENERAL: Patient is in no acute distress. HEENT: No acute trauma, normocephalic atraumatic, mucous membranes moist, no nasal congestion, no scleral icterus. No throat erythema or exudate. NECK: No stridor, no adenopathy, no meningismus, trachea is midline. LUNGS: Clear to auscultation bilaterally, no wheeze, no rhonchi, breath sounds equal. HEART: Without murmurs gallops or rubs, regular rate and rhythm. ABDOMEN: Soft, nontender, bowel sounds positive, no hernias, no peritonitis. EXTREMITIES: No cyanosis or edema, full range of motion of all the joints without pain or difficulty, no signs for acute trauma. NEUROLOGIC: Oriented x 3, no acute motor or sensory deficits, no focal weakness. SKIN: No rash, no jaundice, no diaphoresis. Medical Decision & Procedures ER Provider Diagnostic Interpretation: X-ray results as stated below per interpretation by me and the radiologist: ABDOMEN 2VIEW W/PA CHEST RTN CLINICAL HISTORY: dry heaves, posse obstruct pain COMPARISON STUDY: 07/06/2016 FINDINGS: The soft tissues, psoas shadows, renal outlines and intestinal gas pattern appear normal. There is no evidence for bowel obstruction. There is no evidence for free intraperitoneal air. No abnormal abdominal calcifications are seen. A frontal view of the chest was performed and is unremarkable. IMPRESSION: Normal study. Electronically signed by: Saulo Magaña M.D. 02/02/2017 7:10 PM Dictated Date/Time: 02/02/2017 7:09 PM Laboratory Results 02/02/17 18:00 Red Blood Count 4.24, Mean Corpuscular Volume 93.9, Mean Corpuscular Hemoglobin 31.6, Mean Corpuscular Hemoglobin Concent 33.7, Mean Platelet Volume 9.4, Neutrophils (%) (Auto) 92.0, Lymphocytes (%) (Auto) 1.7, Monocytes (%) (Auto) 5.4, Eosinophils (%) (Auto) 0.0, Basophils (%) (Auto) 0.1, Neutrophils # (Auto) 31.74, Lymphocytes # (Auto) 0.58, Monocytes # (Auto) 1.86, Eosinophils # (Auto) 0.00, Basophils # (Auto) 0.02 02/02/17 18:00 Test 02/02/17 18:00 02/02/17 19:15 White Blood Count 34.47 K/uL (4.8-10.8) Red Blood Count 4.24 M/uL (4.7-6.1) Hemoglobin 13.4 g/dL (14.0-18.0) Hematocrit 39.8 % (42-52) Mean Corpuscular Volume 93.9 fL (80-100) Mean Corpuscular Hemoglobin 31.6 pg (25-34) Mean Corpuscular Hemoglobin Concent 33.7 g/dl (32-36) Platelet Count 230 K/uL (130-400) Mean Platelet Volume 9.4 fL (7.4-10.4) Neutrophils (%) (Auto) 92.0 % Lymphocytes (%) (Auto) 1.7 % Monocytes (%) (Auto) 5.4 % Eosinophils (%) (Auto) 0.0 % Basophils (%) (Auto) 0.1 % Neutrophils # (Auto) 31.74 K/uL (1.4-6.5) Lymphocytes # (Auto) 0.58 K/uL (1.2-3.4) Monocytes # (Auto) 1.86 K/uL (0.11-0.59) Eosinophils # (Auto) 0.00 K/uL (0-0.5) Basophils # (Auto) 0.02 K/uL (0-0.2) RDW Standard Deviation 48.8 fL (36.4-46.3) RDW Coefficient of Variation 14.2 % (11.5-14.5) Immature Granulocyte % (Auto) 0.8 % Immature Granulocyte # (Auto) 0.27 K/uL (0.00-0.02) Red Blood Cell Morphology Unremarkable Urine Color YELLOW Urine Appearance CLEAR (CLEAR) Urine pH 5.5 (4.5-7.5) Urine Specific [place] 1.022 (1.000-1.030) Urine Protein NEG (NEG) Urine Glucose (UA) NEG (NEG) Urine Ketones NEG (NEG) Urine Occult Blood NEG (NEG) Urine Nitrite NEG (NEG) Urine Bilirubin NEG (NEG) Urine Urobilinogen NEG (NEG) Urine Leukocyte Esterase NEG (NEG) Anion Gap 10.0 mmol/L (3-11) Est Creatinine Clear Calc Drug Dose 34.9 ml/min Estimated GFR () 40.9 Estimated GFR (Non- 35.3 BUN/Creatinine Ratio 14.1 (10-20) Calcium Level 9.1 mg/dl (8.5-10.1) Total Bilirubin 0.6 mg/dl (0.2-1) Aspartate Amino Transf (AST/SGOT) 13 U/L (15-37) Alanine Aminotransferase (ALT/SGPT) 17 U/L (12-78) Alkaline Phosphatase 84 U/L (45-117) Total Protein 7.2 gm/dl (6.4-8.2) Albumin 3.6 gm/dl (3.4-5.0) Globulin 3.6 gm/dl (2.5-4.0) Albumin/Globulin Ratio 1.0 (0.9-2) Thyroid Stimulating Hormone (TSH) 1.360 uIu/ml (0.300-4.500) Lyme Disease IgG Antibody NEG (NEG) Lyme Disease IgM Antibody NEG (NEG) Lactic Acid Level 2.1 mmol/L (0.4-2.0) Laboratory results reviewed by me. Medications Administered Medications (Trade) Dose Ordered Sig/Petty Route Start Time Stop Time Status Last Admin Dose Admin Ondansetron HCl 4 mg 4 mg NOW STAT IV 02/02/17 18:08 02/02/17 18:10 DC 02/02/17 18:56 4 MG Sodium Chloride (Nss 1000ml) 1,000 ml @ 999 mls/hr Q1H1M STAT IV 02/02/17 18:08 02/02/17 19:08 DC 02/02/17 18:57 999 MLS/HR Levofloxacin (Levaquin / D5W) 750 mg NOW STAT IV 02/02/17 19:03 02/02/17 19:05 DC 02/02/17 19:26 750 MG Ondansetron HCl 4 mg 4 mg NOW STAT IV 02/02/17 19:23 02/02/17 19:24 DC 02/02/17 19:32 4 MG Sodium Chloride 1,000 ml @ 999 mls/hr Q1H1M STAT IV 02/02/17 19:23 02/02/17 20:23 DC 02/02/17 19:26 999 MLS/HR Vancomycin HCl 1000 mg/Sodium Chloride 270 ml @ 125 mls/hr 2030 ONCE IV 02/02/17 20:30 02/02/17 22:39 02/02/17 21:06 125 MLS/HR Imipenem/ Cilastatin Sodium/ Dextrose (Primaxin Iv/D5 100ml) 110 ml @ 100 mls/hr 2030 IV 02/02/17 20:30 02/02/17 23:00 02/02/17 20:52 100 MLS/HR ECG Indication: vomiting Rate (beats per minute): 100 Rhythm: sinus rhythm Findings: PAC (frequent), no acute ischemic change ED Course 1803: The patient was evaluated in room A9B. A complete history and physical exam was performed. 1807: Ordered NSS 1000 ml @ 999 mls/hr IV, Zofran Inj 4 mg IV. 1902: Ordered Levaquin/D5W 750 mg IV. 1918: I reevaluated the patient and he is still feeling nauseated. His blood pressure dropped on us, so he is going to get more fluids. He will also get nausea medication and some antibiotics. The patient verbally expressed understanding and agreement of the treatment plan. The patient will be evaluated for further treatment. 1945: I discussed the patient with Dr. [place] [facility] [place] he will evaluate the patient for further treatment. 2019: I reevaluated the patient and he feels well but is still hypotensive. I talked to him for a while. We will put the patient in the ICU. The patient verbally expressed understanding and agreement of this plan. 2022: I discussed the patient with Dr. Hawkins from the ICU - she knows that the patient is coming there. Medical Decision Differential diagnosis includes but is not limited to viral illness, food borne illness, electrolyte imbalance, UTI, anemia, bowel obstruction, pneumonia, cellulitis. There is a significant leukocytosis at 34,000, this could be consistent with infection or possibly even leukemia. No concerning anemia. Renal insufficiency was noted but this appears baseline. No significant electrolyte abnormality requiring correction. There was no hepatitis. Lactic acid level was slightly elevated consistent with dehydration and/or sepsis. Abdominal series does not show pneumonia, free air or bowel obstruction. Urinalysis does not show evidence for infection. Blood cultures are pending. EKG shows a sinus rhythm, no acute ischemic change. While the patient was here, he did have frequent PACs on the monitor. The patient received IV saline, IV Zofran. His blood pressure dropped and he received a second liter of IV saline. He was given IV Levaquin for antibiotic coverage. The patient did seem to become more ill during his ER stay. I did consult the on-call hospitalist as well as the intensive care physician. I spoke to case management. I talked to the patient and his . Admission/observation is clearly warranted. He does have 2 large [address] IVs in place that are functioning well. Despite the patient's laboratory findings and low blood pressure, he only complains of some mild nausea, he does not feel lightheaded, he is not short of breath. There is no chest pain and he is in good spirits. At this point, the cause for his presentation is unclear. Consults Time Called: 1929 Consulting Physician: Dr. Kishore GILBERT hospitalist Returned Call: 1945 (in person) I discussed the patient with Dr. Kishore GILBERT hospitalist - he will evaluate the patient for further treatment. Additional Consults: Time Called: 2019 Consulted Physician: Dr. Hawkins from the ICU Returned Call: 2022 Additional Comments: I discussed the patient with Dr. Hawkins from the ICU - she knows that the patient is coming there. Impression Primary Impression: Hypotension Additional Impressions: Nausea Leukocytosis Critical Care I have personally spent greater than 30 minutes of critical care time in the direct management of this patient. This includes bedside care, interpretation of diagnostic studies and testing, discussion with consultants, the patient, and family members, and other required patient management activities. This 30 minutes is in excess of all separately billable procedures. Scribe Attestation The scribe's documentation has been prepared under my direction and personally reviewed by me in its entirety. I confirm that the note above accurately reflects all work, treatment, procedures, and medical decision making performed by me. Departure Information Dispostion Being Evaluated By Hospitalist Richmond Ruvalcaba M.D. (PCP) Patient Instructions [facility] Problem Qualifiers
[2017-02-02 18:27] LABS: HEMATOCRIT 39.8 % (42-52); MEAN CELL VOLUME 93.9 fL (80-100); MEAN CORPUSCULAR HEMOGLOBIN 31.6 pg (25-34); MEAN CORPUSCULAR HGB CONC 33.7 g/dl (32-36); MEAN PLATELET VOLUME 9.4 fL (7.4-10.4); PLATELET COUNT 230 K/uL (130-400); RED BLOOD COUNT 4.24 M/uL (4.7-6.1); WHITE BLOOD COUNT 34.47 K/uL (4.8-10.8)
[2017-02-02 18:31] LABS: URINE APPEARANCE CLEAR (CLEAR); URINE BILIRUBIN NEG (NEG); URINE COLOR YELLOW; URINE NITRITE NEG (NEG); URINE PH 5.5 (4.5-7.5); URINE SPECIFIC GRAVITY 1.022 (1.000-1.030); UROBILINOGEN NEG (NEG); ZZUR CULT IF INDIC CLEAN CATCH NO
[2017-02-02 18:35] LABS: BUN/CREATININE RATIO 14.1 (10-20); CALCIUM 9.1 mg/dl (8.5-10.1); CREATININE 1.8 mg/dl (0.60-1.40); POTASSIUM 4.2 mmol/L (3.5-5.1)
[2017-02-02 18:37] LABS: BASO % 0.1 %; BASO ABS # 0.02 K/uL (0-0.2); COMPLETE YES; IG% 0.8 %; LYMPH % 1.7 %; LYMPH ABS # 0.58 K/uL (1.2-3.4); MONO % 5.4 %
[2017-02-02 18:38] LABS: MANUAL MICROSCOPIC REQUIRED? NO; REVIEW REQ? NO
[2017-02-02 18:46] LABS: THYROID STIMULATING HORMONE 1.36 uIu/ml (0.300-4.500)
[2017-02-02] MEDS ORDERED: LEVAQUIN 750MG / 150ML D5W IV STA (19:03)
--- NOTE | 2017-02-02 19:11 | DIAGNOSTIC IMAGING REPORT ---
ABDOMEN 2VIEW W/PA CHEST RTN CLINICAL HISTORY: dry heaves, posse obstruct pain COMPARISON STUDY: 07/06/2016 FINDINGS: The soft tissues, psoas shadows, renal outlines and intestinal gas pattern appear normal. There is no evidence for bowel obstruction. There is no evidence for free intraperitoneal air. No abnormal abdominal calcifications are seen. A frontal view of the chest was performed and is unremarkable. IMPRESSION: Normal study. Electronically signed by: Saulo Magaña M.D. 02/02/2017 7:10 PM Dictated Date/Time: 02/02/2017 7:09 PM
[2017-02-02] MEDS ORDERED: LISI-725 PO (19:21)
[2017-02-02] MEDS ORDERED: MAGN250T8 PO (19:21)
[2017-02-02] MEDS ORDERED: CLB/200 PO (19:21)
[2017-02-02] MEDS ORDERED: ACET-1256 PO (19:22)
[2017-02-02] MEDS ORDERED: IMIPENEM/CILASTATIN IV 500 MG in DEXTROSE 5% 100ML 100 ML IV SCH ×2 (20:15→20:30)
[2017-02-02] MEDS ORDERED: NOREPINEPHRINE BIT INJ 8 MG in DEXTROSE 5% 500ML 500 ML IV PRN (20:21)
[2017-02-02] MEDS ORDERED: LORAZEPAM 2 MG/ML 1 ML VIAL IV PRN (20:30)
[2017-02-02] MEDS ORDERED: VANCOMYCIN INJ 1,000 MG in SODIUM CHLORIDE 0.9% 250ML 250 ML IV ONE (20:30)
--- NOTE | 2017-02-02 20:50 | DIAGNOSTIC IMAGING REPORT ---
HEAD CT NONCONTRAST CT DOSE: 1596.81 mGy.cm HISTORY: Mental status change headache, neutrophilic leukocytosis TECHNIQUE: Multiaxial CT images of the head were performed without the use of intravenous contrast. Comparison: None. Findings: The paranasal sinuses and mastoid air cells are clear. The calvarium and skull base are intact. The ventricles and sulci are within normal limits. There is no mass, hematoma, midline shift, or acute infarct. Impression: No acute intracranial abnormality. Mild age-related chronic small vessel change and atrophy Electronically signed by: Saulo Magaña M.D. 02/02/2017 8:49 PM Dictated Date/Time: 02/02/2017 8:48 PM
--- NOTE | 2017-02-02 20:53 | DIAGNOSTIC IMAGING REPORT ---
ABDOMEN AND PELVIS CT WITHOUT CONTRAST CT DOSE: HISTORY: neutrophilic leukocytosis, nausea and vomiting TECHNIQUE: Multiaxial CT images of the abdomen and pelvis were performed without contrast. COMPARISON STUDY: None. FINDINGS: Consolidative infiltrate of the lingula. Slight dependent bibasilar atelectatic change. Configuration of liver and spleen are unremarkable. Pancreas is unremarkable. Kidneys negative for hydronephrosis or calcification. There is mild infrarenal aneurysmal dilatation of the abdominal aorta with a maximum dimension of 4.2 cm. Bowel pattern is considered nonobstructive. There are findings of chronic sigmoid diverticulosis. There is no evidence for acute diverticulitis. IMPRESSION: 1. Chronic sigmoid diverticulosis. 2. Nonobstructive bowel pattern. 3. 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 4. Consolidative infiltrate of the lingula. Electronically signed by: Saulo Magaña M.D. 02/02/2017 8:51 PM Dictated Date/Time: 02/02/2017 8:49 PM
[2017-02-02] MEDS ORDERED: VANCOMYCIN CONSULT ACTIVE PRN (21:00)
[2017-02-02 21:11] LABS: LYME DISEASE AB IGG NEG (NEG); LYME DISEASE AB IGM NEG (NEG)
[2017-02-02 21:13] VITALS: Ht 177.8 cm; Wt 85.3 kg
[2017-02-02] MEDS ORDERED: LEVOFLOXACIN CONSULT ACTIVE PRN (21:15)
[2017-02-02] MEDS ORDERED: IMIPENEM/CILASTATIN CONSULT ACTIVE PRN (21:15)
[2017-02-02 21:43] VITALS: BP 105/52; PULSE 86; TEMP 36.6; O2SAT 94
[2017-02-02] MEDS ORDERED: IPRATROPIUM BROMIDE NEB SOLN 0.02% 2.5 ML VIAL INH PRN (22:00)
[2017-02-02] MEDS ORDERED: LEVALBUTEROL/IPRATROPIUM NEB INH PRN (22:00)
[2017-02-02] MEDS ORDERED: ONDANSETRON INJ 2 MG/ML 2 ML VIAL IV PRN (22:00)
--- NOTE | 2017-02-02 22:01 | History and Physical ---
History & Physical Date & Time of Service: February 02, 2017 at 22:02 Chief Complaint: Hypotension, Neutrophilic Leukocytosis Primary Care Physician: Richmond Bennett M.D. History of Present Illness Source: patient, spouse The patient is a 76-year-old male presents emergency department with symptoms including dry heaves, nausea, generalized weakness, elevated temperature and lack of appetite. The patient's reports his temperature was 102F about 2 hours prior to arrival, for which he took 2 Tylenol about 1 hour prior to arrival. He has not had any recent travel, and has no known sick contacts. He has some chronic shortness of breath due to COPD, and uses inhalers at home. He has a history of bilateral total hip arthroplasties. Past Medical/Surgical History Medical Problems: (1) COPD (chronic obstructive pulmonary disease) Status: Chronic Family History Diabetes mellitus FH: cancer FH: heart disease Hypertension Social History Smoking Status: Former Smoker Smokeless Tobacco Use: No Alcohol Use: none Drug Use: none Marital Status: Housing status: lives with family Occupational Status: retired Allergies Coded Allergies: Penicillins (Verified Allergy, Unknown, HIVES, 10/18/16) Home Medications Scheduled Celecoxib (CeleBREX), 200 MG PO BID Fluticasone Prop/Salmeterol (Advair Diskus 250/50 60 Dose), 1 PUFF INH BID Hydrochlorothiazide (Hctz), 25 MG PO QAM Ipratropium-Albuterol (Combivent Respimat), 1 PUFF INH QID Lisinopril (Zestril), 20 MG PO QAM Magnesium Oxide (Mg Supplement (Magnesium), 1 TAB PO DAILY Ranitidine (Zantac), 150 MG PO HS Scheduled PRN Acetaminophen (Tylenol), 1,000 MG PO Q8 PRN for Pain Review of Systems Constitutional: + fever, + weakness, No chills, No fatigue, No sweats, No weight loss Eyes: No diplopia, No discharge, No eye pain, No problem reported, No redness, No worsening of vision ENT: No dental problems, No hearing loss, No nasal symptoms, No problem reported, No sore throat, No tinnitus, No trouble swallowing, No unusual epistaxis Respiratory: + shortness of breath (chronic), No cough, No dyspnea at rest, No dyspnea on exertion, No hemoptysis, No sputum, No wheezing Cardiovascular: No PND, No chest pain, No claudication, No edema, No orthopnea , No palpitations, No problem reported Abdomen: + nausea, + vomiting, No GI bleeding, No constipation, No diarrhea, No pain Musculoskeletal: No calf pain, No joint pain, No muscle pain, No problem reported, No swelling Genitourinary - Male: No dysuria, No hematuria, No impotence, No lesions, No penile discharge, No problem reported, No urinary frequency, No urinary hesitancy, No urinary incontinence, No urinary retention, No urinary urgency Neurologic: No balance problems, No memory loss, No numbness/tingling, No paralysis, No problem reported, No vertigo, No weakness Psychiatric: No anhedonism, No anxiety, No depression symptoms, No insomnia, No problem reported, No substance abuse Endocrine: No excessive thirst, No excessive urination, No fatigue, No problem reported Hematologic / Lymphatic: No abnormal bleeding/bruising, No clotting problems, No night sweats, No problem reported, No swollen lymph nodes Integumentary: No bleeding, No color change, No itch, No new/changing skin lesions, No problem reported, No rash Allergic / Immunologic: No environmental allergies, No food allergies, No frequent infections, No hives, No pet sensitivities, No poor healing, No problem reported, No prolonged convalescence, No seasonal allergies Physical Exam Vital Signs Date Time Temp Pulse Resp B/P Pulse Ox O2 Delivery O2 Flow Rate FiO2 02/02/17 21:26 102/52 02/02/17 21:25 89 32 96 02/02/17 21:15 91 27 84/54 94 02/02/17 21:13 Nasal Cannula 02/02/17 21:05 96 28 94 02/02/17 21:00 89/51 02/02/17 20:55 94 19 93 02/02/17 20:50 89 23 96 02/02/17 20:47 99/52 02/02/17 20:45 70/53 02/02/17 20:41 90/46 02/02/17 20:20 94 26 86/53 96 02/02/17 20:16 85/51 02/02/17 20:15 78/48 02/02/17 20:10 92 36 96 02/02/17 20:00 91 37 85/42 97 02/02/17 19:50 88 26 97 02/02/17 19:45 87/48 02/02/17 19:40 91 31 97 02/02/17 19:30 102 19 86/52 85 02/02/17 19:29 36.6 98 16 86/52 94 02/02/17 19:20 93 29 96 02/02/17 19:18 92 02/02/17 19:10 87 20 94 02/02/17 19:05 94 2.0 02/02/17 19:00 95 24 86/46 91 Room Air 02/02/17 19:00 101 25 86/46 90 02/02/17 18:59 84/41 02/02/17 18:58 89 84/41 02/02/17 18:50 88 27 02/02/17 17:31 36.8 103 20 104/54 92 Room Air General Appearance: WD/WN, no apparent distress Head: normocephalic, atraumatic Eyes: normal inspection, PERRL, EOMI, sclerae normal ENT: normal ENT inspection, hearing grossly normal, pharynx normal Neck: supple, no adenopathy, thyroid normal, no JVD, no carotid bruits, trachea midline Respiratory/Chest: chest non-tender, lungs clear, normal breath sounds, no respiratory distress, no accessory muscle use Cardiovascular: regular rate, rhythm, no edema, no gallop, no JVD, no murmur, normal peripheral pulses Abdomen/GI: normal bowel sounds, non tender, soft, no organomegaly, no pulsatile mass Back: normal inspection, no CVA tenderness, no muscle spasm, normal range of motion Extremities/Musculoskelatal: normal inspection, no calf tenderness, normal capillary refill, no pedal edema, normal range of motion, non-tender 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, no motor/sensory deficits, alert, normal mood/affect, normal reflexes, oriented x 3 Skin: normal color, warm/dry, no rash Lymphatic: no adenopathy Diagnostics Laboratory Results Results Past 24 Hours Test 02/02/17 18:00 02/02/17 19:15 Range/Units White Blood Count 34.47 4.8-10.8 K/uL Red Blood Count 4.24 4.7-6.1 M/uL Hemoglobin 13.4 14.0-18.0 g/dL Hematocrit 39.8 42-52 % Mean Corpuscular Volume 93.9 80-100 fL Mean Corpuscular Hemoglobin 31.6 25-34 pg Mean Corpuscular Hemoglobin Concent 33.7 32-36 g/dl Platelet Count 230 130-400 K/uL Mean Platelet Volume 9.4 7.4-10.4 fL Neutrophils (%) (Auto) 92.0 % Lymphocytes (%) (Auto) 1.7 % Monocytes (%) (Auto) 5.4 % Eosinophils (%) (Auto) 0.0 % Basophils (%) (Auto) 0.1 % Neutrophils # (Auto) 31.74 1.4-6.5 K/uL Lymphocytes # (Auto) 0.58 1.2-3.4 K/uL Monocytes # (Auto) 1.86 0.11-0.59 K/uL Eosinophils # (Auto) 0.00 0-0.5 K/uL Basophils # (Auto) 0.02 0-0.2 K/uL RDW Standard Deviation 48.8 36.4-46.3 fL RDW Coefficient of Variation 14.2 11.5-14.5 % Immature Granulocyte % (Auto) 0.8 % Immature Granulocyte # (Auto) 0.27 0.00-0.02 K/uL Red Blood Cell Morphology Unremarkable Urine Color YELLOW Urine Appearance CLEAR CLEAR Urine pH 5.5 4.5-7.5 Urine Specific [place] 1.022 1.000-1.030 Urine Protein NEG NEG Urine Glucose (UA) NEG NEG Urine Ketones NEG NEG Urine Occult Blood NEG NEG Urine Nitrite NEG NEG Urine Bilirubin NEG NEG Urine Urobilinogen NEG NEG Urine Leukocyte Esterase NEG NEG Sodium Level 139 136-145 mmol/L Potassium Level 4.2 3.5-5.1 mmol/L Chloride Level 102 98-107 mmol/L Carbon Dioxide Level 27 21-32 mmol/L Anion Gap 10.0 3-11 mmol/L Blood Urea Nitrogen 25 7-18 mg/dl Creatinine 1.80 0.60-1.40 mg/dl Est Creatinine Clear Calc Drug Dose 34.9 ml/min Estimated GFR () 40.9 Estimated GFR (Non- 35.3 BUN/Creatinine Ratio 14.1 10-20 Random Glucose 113 70-99 mg/dl Calcium Level 9.1 8.5-10.1 mg/dl Total Bilirubin 0.6 0.2-1 mg/dl Aspartate Amino Transf (AST/SGOT) 13 15-37 U/L Alanine Aminotransferase (ALT/SGPT) 17 12-78 U/L Alkaline Phosphatase 84 45-117 U/L Total Protein 7.2 6.4-8.2 gm/dl Albumin 3.6 3.4-5.0 gm/dl Globulin 3.6 2.5-4.0 gm/dl Albumin/Globulin Ratio 1.0 0.9-2 Thyroid Stimulating Hormone (TSH) 1.360 0.300-4.500 uIu/ml Lyme Disease IgG Antibody NEG NEG Lyme Disease IgM Antibody NEG NEG Lactic Acid Level 2.1 0.4-2.0 mmol/L Microbiology Results 02/02/17 Blood Culture, Received Pending 02/02/17 Blood Culture, Received Pending Diagnostic Radiology Patient Name: BREN CURTIS Unit Number: [id number] Dictated: 02/02/171908 Transcribed: 02/02/171908 MS Printed Date/Time: [~ rep prt dt]/[~ rep prt tm] [~ rep ct labl] - [~ rep ct ivnm] [facility] [place] [address] Dictated: 02/02/171908 Transcribed: 02/02/171908 MS Printed Date/Time: [~ rep prt dt]/[~ rep prt tm] [~ rep ct labl] - [~ rep ct ivnm] ABDOMEN 2VIEW W/PA CHEST RTN CLINICAL HISTORY: dry heaves, posse obstruct pain COMPARISON STUDY: 07/06/2016 FINDINGS: The soft tissues, psoas shadows, renal outlines and intestinal gas pattern appear normal. There is no evidence for bowel obstruction. There is no evidence for free intraperitoneal air. No abnormal abdominal calcifications are seen. A frontal view of the chest was performed and is unremarkable. IMPRESSION: Normal study. Electronically signed by: Saulo Magaña M.D. 02/02/2017 7:10 PM Dictated Date/Time: 02/02/2017 7:09 PM The status of this report is Signed. Draft = Not yet reviewed or approved by Radiologist. Signed = Reviewed and approved by Radiologist. <AttendingPhy></AttendingPhy> <FamilyPhy>Richmond Bennett M.D.</FamilyPhy> < PrimaryPhy>Richmond Bennett M.D.</PrimaryPhy> <UnitNumber>[id number]</UnitNumber > <VisitNumber>[id number]</VisitNumber> <PatientName>BREN CURTIS</ PatientName> <DateOfBirth>1940</DateOfBirth> <Location>[facility]</Location> < ServiceDate>02/02/17</ServiceDate> <MNE>ESINDI</MNE> <OrderingPhy>Branden Jeronimo M.D.</OrderingPhy> <OrderingPhyMNE>f rep ord dr holley</OrderingPhyMNE> < DictatingPhyMNE>f rep dict dr holley</DictatingPhyMNE> <CCListMNE>f rep ct mne</ CCListMNE> <AdmittingPhyMNE>f pt admit dr holley</AdmittingPhyMNE> <AttendingPhyMNE >f pt attend dr holley</AttendingPhyMNE> <ConsultingPhyMNE>f pt consult dr holley</ConsultingPhyMNE> <FamilyPhyMNE>f pt fam dr holley</FamilyPhyMNE> <OtherPhyMNE>f pt other dr holley</OtherPhyMNE> < PrimaryPhyMNE>f pt prim care dr holley</PrimaryPhyMNE> <ReferringPhyMNE>f pt referring dr holley</ReferringPhyMNE> Patient Name: BREN CURTIS Unit Number: [id number] Dictated: 02/02/172048 Transcribed: 02/02/172048 MS Printed Date/Time: [~ rep prt dt]/[~ rep prt tm] [~ rep ct labl] - [~ rep ct ivnm] [facility] [place] [place] [address] Dictated: 02/02/172048 Transcribed: 02/02/172048 MS Printed Date/Time: [~ rep prt dt]/[~ rep prt tm] [~ rep ct labl] - [~ rep ct ivnm] ABDOMEN AND PELVIS CT WITHOUT CONTRAST CT DOSE: HISTORY: neutrophilic leukocytosis, nausea and vomiting TECHNIQUE: Multiaxial CT images of the abdomen and pelvis were performed without contrast. COMPARISON STUDY: None. FINDINGS: Consolidative infiltrate of the lingula. Slight dependent bibasilar atelectatic change. Configuration of liver and spleen are unremarkable. Pancreas is unremarkable. Kidneys negative for hydronephrosis or calcification. There is mild infrarenal aneurysmal dilatation of the abdominal aorta with a maximum dimension of 4.2 cm. Bowel pattern is considered nonobstructive. There are findings of chronic sigmoid diverticulosis. There is no evidence for acute diverticulitis. IMPRESSION: 1. Chronic sigmoid diverticulosis. 2. Nonobstructive bowel pattern. 3. 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 4. Consolidative infiltrate of the lingula. Electronically signed by: Saulo Magaña M.D. 02/02/2017 8:51 PM Dictated Date/Time: 02/02/2017 8:49 PM The status of this report is Signed. Draft = Not yet reviewed or approved by Radiologist. Signed = Reviewed and approved by Radiologist. <AttendingPhy></AttendingPhy> <FamilyPhy>Richmond Bennett M.D.</FamilyPhy> < PrimaryPhy>Richmond Bennett M.D.</PrimaryPhy> <UnitNumber>[id number]</UnitNumber > <VisitNumber>[id number]</VisitNumber> <PatientName>BREN CURTIS</ PatientName> <DateOfBirth>1940</DateOfBirth> <Location>[facility]</Location> < ServiceDate>02/02/17</ServiceDate> <MNE>ESINDI</MNE> <OrderingPhy>Chip Novak M.D.</OrderingPhy> <OrderingPhyMNE>f rep ord dr holley</OrderingPhyMNE> < DictatingPhyMNE>f rep dict dr holley</DictatingPhyMNE> <CCListMNE>f rep ct leydi</ CCListMNE> <AdmittingPhyMNE>f pt admit dr holley</AdmittingPhyMNE> <AttendingPhyMNE >f pt attend dr holley</AttendingPhyMNE> <ConsultingPhyMNE>f pt consult dr holley</ConsultingPhyMNE> <FamilyPhyMNE>f pt fam dr holley</FamilyPhyMNE> <OtherPhyMNE>f pt other dr holley</OtherPhyMNE> < PrimaryPhyMNE>f pt prim care dr holley</PrimaryPhyMNE> <ReferringPhyMNE>f pt referring dr holley</ReferringPhyMNE> Patient Name: BREN CURTIS Unit Number: [id number] Dictated: 02/02/172047 Transcribed: 02/02/172047 MS Printed Date/Time: [~ rep prt dt]/[~ rep prt tm] [~ rep ct labl] - [~ rep ct ivnm] [facility] [place] [place] [address] Dictated: 02/02/172047 Transcribed: 02/02/172047 MS Printed Date/Time: [~ rep prt dt]/[~ rep prt tm] [~ rep ct labl] - [~ rep ct ivnm] HEAD CT NONCONTRAST CT DOSE: 1596.81 mGy.cm HISTORY: Mental status change headache, neutrophilic leukocytosis TECHNIQUE: Multiaxial CT images of the head were performed without the use of intravenous contrast. Comparison: None. Findings: The paranasal sinuses and mastoid air cells are clear. The calvarium and skull base are intact. The ventricles and sulci are within normal limits. There is no mass, hematoma, midline shift, or acute infarct. Impression: No acute intracranial abnormality. Mild age-related chronic small vessel change and atrophy Electronically signed by: Saulo Magaña M.D. 02/02/2017 8:49 PM Dictated Date/Time: 02/02/2017 8:48 PM The status of this report is Signed. Draft = Not yet reviewed or approved by Radiologist. Signed = Reviewed and approved by Radiologist. <AttendingPhy></AttendingPhy> <FamilyPhy>Richmond Bennett M.D.</FamilyPhy> < PrimaryPhy>Richmodn Bennett M.D.</PrimaryPhy> <UnitNumber>[id number]</UnitNumber > <VisitNumber>[id number]</VisitNumber> <PatientName>BREN CURTIS</ PatientName> <DateOfBirth>1940</DateOfBirth> <Location>[facility]</Location> < ServiceDate>02/02/17</ServiceDate> <MNE>ESINDI</MNE> <OrderingPhy>Chip Novak M.D.</OrderingPhy> <OrderingPhyMNE>f rep ord dr holley</OrderingPhyMNE> < DictatingPhyMNE>f rep dict dr holley</DictatingPhyMNE> <CCListMNE>f rep ct leydi</ CCListMNE> <AdmittingPhyMNE>f pt admit dr holley</AdmittingPhyMNE> <AttendingPhyMNE >f pt attend dr holley</AttendingPhyMNE> <ConsultingPhyMNE>f pt consult dr holley</ConsultingPhyMNE> <FamilyPhyMNE>f pt fam dr holley</FamilyPhyMNE> <OtherPhyMNE>f pt other dr holley</OtherPhyMNE> < PrimaryPhyMNE>f pt prim care dr holley</PrimaryPhyMNE> <ReferringPhyMNE>f pt referring dr holley</ReferringPhyMNE> EKG EKG shows normal sinus rhythm at 100 bpm, left anterior fascicular block, left axis deviation, no change compared to 07/06/2016. Impression Assessment and Plan Hypotension/intermittent atrial flutter/PACs/dropped beats/neutrophilic leukocytosis/lingular pneumonia--patient's systolic blood pressure dropped about 30 points while in the emergency department to a low of 78. He is admitted to the ICU with concerns for the possible need for pressors, and for rhythm monitoring. He is receiving total of 3 L of normal saline, and will continue at 100 mils per hour. Acute renal insufficiency--Hold lisinopril and HCTZ. Hydrate with IV fluids as noted above. Follow serial laboratories PRP and magnesium. Neutrophilic leukocytosis/lingular pneumonia/concerns regarding SBE-the patient is placed empirically on vancomycin IV, Primaxin IV, Levaquin IV, Xopenex/ Atrovent nebulizers every 2 hours when necessary. Follow cultures, order a 2-D echocardiogram with Dopplers, follow serial chest x-rays. 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 We will hold Advair Diskus and Combivent Nausea/vomiting/duodenal ulcer history--CT of abdomen and pelvis was negative. He'll be placed on Protonix 40 mg IV twice a day, and will need to be seen by gastroenterology may possibly need an EGD. Hold ranitidine 150 mg by mouth at bedtime. Abdominal aortic aneurysm of 4.2 cm--we will need serial CT scans to follow for stability. Level of Care Critical Care Advanced Directives Existing Advance Directive: No Existing Living Will: No Existing Power of Car Mover: No Resuscitation Status FULL RESUSCITATION VTE Prophylaxis VTE Risk Assessment Done? Y/N: Yes Risk Level: Moderate Given or contraindicated: SCD's Social Service Consult None Apply
[2017-02-02] MEDS: SODIUM CHLORIDE 0.9% 1000ML 1,000 ML IV SCH (22:03)
[2017-02-02] MEDS ORDERED: ADVIN25/60 INH (22:34)
[2017-02-02] MEDS ORDERED: IPRA1AER2 INH (22:38)
[2017-02-02] MEDS ORDERED: VANCOMYCIN INJ 1,000 MG in SODIUM CHLORIDE 0.9% 250ML 250 ML IV SCH (23:00)
[2017-02-02] MEDS: ZOLPIDEM TARTRATE 5 MG TAB PO PRN (23:14)
[2017-02-02 23:33] VITALS: BP 96/52; PULSE 107; O2SAT 75
[2017-02-03] VITALS (22 sets, daily range): BP systolic 93–113; BP diastolic 44–63; PULSE 81–94; TEMP 36.3–37; O2SAT 16–98
[2017-02-03] MEDS: LEVALBUTEROL 1.25MG/0.5ML NEB INH PRN ×2 (03:23→19:20)
[2017-02-03 04:37] LABS: HEMATOCRIT 36.6 % (42-52); MEAN CELL VOLUME 95.1 fL (80-100); MEAN CORPUSCULAR HEMOGLOBIN 31.2 pg (25-34); MEAN CORPUSCULAR HGB CONC 32.8 g/dl (32-36); MEAN PLATELET VOLUME 8.8 fL (7.4-10.4); PLATELET COUNT 179 K/uL (130-400); RED BLOOD COUNT 3.85 M/uL (4.7-6.1); WHITE BLOOD COUNT 29.65 K/uL (4.8-10.8)
[2017-02-03] MEDS: IMIPENEM/CILASTATIN IV 300 MG in DEXTROSE 5% 100ML 100 ML IV SCH ×2 (04:37→08:39)
[2017-02-03 04:39] LABS: INR 1.3 (0.9-1.1); PARTIAL THROMBOPLASTIN RATIO 1.4; PROTHROMBIN TIME (PATIENT) 13.5 SECONDS (9.0-12.0)
[2017-02-03 04:48] LABS: CALCIUM 7.6 mg/dl (8.5-10.1); CKMB/CK RATIO 1.8 (0-3.0); CREATININE 1.7 mg/dl (0.60-1.40); MAGNESIUM 1.2 mg/dl (1.8-2.4); PHOSPHORUS 2.6 mg/dl (2.5-4.9); POTASSIUM 4.5 mmol/L (3.5-5.1)
[2017-02-03 04:51] LABS: BASO % 0.1 %; BASO ABS # 0.02 K/uL (0-0.2); COMPLETE YES; ECHINOCYTES 1+; IG% 0.7 %; LYMPH % 3.6 %; LYMPH ABS # 1.08 K/uL (1.2-3.4); MONO % 3.8 %; NEUT % 91.8 %; VACUOLIZATION 1+
--- NOTE | 2017-02-03 07:36 | DIAGNOSTIC IMAGING REPORT ---
CHEST ONE VIEW PORTABLE CLINICAL HISTORY: neutrophilic leukocytosis COMPARISON STUDY: 02/02/2017 FINDINGS: The chest has an emphysematous configuration. There are increasing left lung airspace opacities. The right lung is clear. There is no failure. There is no significant pleural fluid.[ IMPRESSION: Worsening left lung airspace opacities, suspicious for a pneumonitis. Clinical and imaging follow-up is recommended.. Electronically signed by: Tl Hernandez M.D. 02/03/2017 7:35 AM Dictated Date/Time: 02/03/2017 7:33 AM
[2017-02-03] MEDS: ASPIRIN 81 MG ECTAB PO SCH (08:25)
[2017-02-03] MEDS: SODIUM CHLORIDE 0.9% 1000ML 1,000 ML IV SCH ×2 (08:25→18:37)
[2017-02-03] MEDS ORDERED: PANTOprazole INJ 40 MG in SYRINGE 0 ML IV SCH (09:00)
[2017-02-03] MEDS: MAGNESIUM SULFATE 1GM / D5W 1 GM in PREMIXED IN D5W 100 ML IV SCH ×2 (09:35→10:26)
--- NOTE | 2017-02-03 09:44 | ECHOCARDIOGRAM REPORT ---
*NOTICE TO RECEIVING REPUBLICAN AGENCY This information is strictly Confidential and protected under [place] law. [place] law prohibits you from making any further disclosure of this information unless further disclosure is expressly permitted by the written consent of the person to whom it pertains or is authorized by law. A general authorization for the release of medical or other information is not sufficient for this purpose. Hospital accepts no responsibility if the information is made available to any other person, INCLUDING THE PATIENT. Interpretation Summary * Name: BREN CURTIS Study Date: 02/03/2017 06:50 AM BP: 93/52 mmHg * [facility] HR: 91 * : 1940 (M/d/yyyy) Gender: Male Height: 70 in * Age: 76 yrs Ethnicity: [place] Weight: 180 lb * Ordering Physician: Chip Novak * Referring Physician: Self, Referred * Performed By: Lola Gonzalez RDCS * * Reason For Study: Assess for SBE * BSA: 2.0 m2 * -- Conclusions -- * The left ventricle is normal in size. * There is normal left ventricular wall thickness. * Ejection Fraction = 60-65%. * Left ventricular systolic function is normal. * The left ventricular wall motion is normal. * The right ventricle is normal in size and function. * The right ventricular systolic function is normal as assessed by tricuspid annular plane systolic excursion (TAPSE) (normal >1.5 cm). Procedure Details * A complete two-dimensional transthoracic echocardiogram was performed (2D, M-mode, Doppler and color flow Doppler). Left Ventricle * The left ventricle is normal in size. * There is normal left ventricular wall thickness. * Ejection Fraction = 60-65%. * Left ventricular systolic function is normal. * The left ventricular wall motion is normal. Right Ventricle * The right ventricle is normal in size and function. * The right ventricular systolic function is normal as assessed by tricuspid annular plane systolic excursion (TAPSE) (normal >1.5 cm). Atria * The left atrial size is normal. * Right atrial size is normal. Mitral Valve * The mitral valve leaflets appear thickened, but open well. * There is trace mitral regurgitation. Tricuspid Valve * The tricuspid valve is not well visualized, but is grossly normal. * There is trace tricuspid regurgitation. Aortic Valve * Aortic valve sclerosis mild, without significant aortic valvular stenosis. * No aortic regurgitation is present. Pulmonic Valve * The pulmonic valve is not well visualized. * Trace pulmonic valvular regurgitation. Great Vessels * The aortic root is normal size. Pericardium/Pleural * There is no pericardial effusion. Great Vessels * Normal inferior vena cava diameter and respiratory variation suggests normal central venous pressure. Left Ventricular Diastolic Function * Fusion of E and A wave MMode 2D Measurements and Calculations IVSd 0.88 cm LVIDd 4.2 cm LVIDs 2.8 cm LVPWd 0.84 cm IVS/LVPW 1.1 FS 35.2 % EDV(Teich) 80.6 ml ESV(Teich) 28.3 ml EF(Teich) 64.9 % EDV(cubed) 76.5 ml ESV(cubed) 20.8 ml EF(cubed) 72.8 % LV mass(C)d 113.1 grams LV mass(C)dI 56.7 grams/m\S\2 CO(Teich) 3.9 l/min CI(Teich) 1.9 l/min/m\S\2 SV(Teich) 52.3 ml SI(Teich) 26.2 ml/m\S\2 CO(cubed) 4.1 l/min CI(cubed) 2.1 l/min/m\S\2 SV(cubed) 55.7 ml SI(cubed) 27.9 ml/m\S\2 Ao root diam 3.5 cm Ao root area 9.9 cm\S\2 ACS 1.4 cm LA dimension 2.4 cm asc Aorta Diam 3.8 cm LA/Ao 0.66 LVOT diam 2.0 cm LVOT area 3.1 cm\S\2 LVAd ap4 24.9 cm\S\2 LVLd ap4 7.0 cm EDV(MOD-sp4) 73.5 ml LVAs ap4 14.4 cm\S\2 LVLs ap4 5.9 cm ESV(MOD-sp4) 29.6 ml EF(MOD-sp4) 59.7 % LVAd ap2 22.1 cm\S\2 LVLd ap2 6.8 cm EDV(MOD-sp2) 60.0 ml LVAs ap2 12.0 cm\S\2 LVLs ap2 5.0 cm ESV(MOD-sp2) 24.5 ml EF(MOD-sp2) 59.2 % CO(MOD-sp4) 3.2 l/min CI(MOD-sp4) 1.6 l/min/m\S\2 SV(MOD-sp4) 43.9 ml SI(MOD-sp4) 22.0 ml/m\S\2 CO(MOD-sp2) 2.6 l/min CI(MOD-sp2) 1.3 l/min/m\S\2 SV(MOD-sp2) 35.5 ml SI(MOD-sp2) 17.8 ml/m\S\2 Doppler Measurements and Calculations MV E max denise 91.2 cm/sec MV dec time 0.16 sec Ao V2 max 85.5 cm/sec Ao max PG 2.9 mmHg Ao max PG (full) -0.65 mmHg MICHELLE(V,A) 3.5 cm\S\2 MICHELLE(V,D) 3.5 cm\S\2 LV V1 max PG 3.6 mmHg LV V1 max 94.6 cm/sec PA V2 max 88.2 cm/sec PA max PG 3.1 mmHg PA acc slope 482.2 cm/sec\S\2 PA acc time 0.12 sec TR max denise 219.1 cm/sec PA pr(Accel) 25.1 mmHg
[2017-02-03] MEDS ORDERED: VANCOMYCIN INJ 1,300 MG in SODIUM CHLORIDE 0.9% 250ML 250 ML IV SCH (10:00)
--- NOTE | 2017-02-03 10:20 | Progress Note ---
Subjective Date of Service: February 03, 2017. Subjective Pt evaluation today including: conversation w/ patient, conversation w/ family , physical exam, lab review, review of studies, conversation w/ lead consultant, review of inpatient medication list Pain: denies pain PO Intake: poor appetite, but tolerating clears Voiding: no voiding problems patient admits to feeling better since admission, no fevers, no pain, less dry heaves still with loose stools, 2 since admission, small volume dry cough, no dyspnea this AM discussed findings of infiltrate in lingula also, discussed + C diff in stool and plan for treatment talked with RN, never needed Levophed, BP responded to fluids family had questions about leukocytosis and mention of leukemia at time of admission assured them that WBC of 34k is common with C diff infection, already down to 29k since admission Problem List Medical Problems: (1) Hypomagnesemia Status: Acute (2) Hypotension Status: Acute (3) Leukocytosis Status: Acute (4) Nausea Status: Acute (5) Pneumonia Status: Acute Review of Systems Constitutional: + chills, + fatigue, + weakness Respiratory: + cough Abdomen: + diarrhea, + nausea (dry heaves) Neurologic: + weakness (generalized) All Other Systems: Reviewed and Negative Medications Current Inpatient Medications Medications (Trade) Dose Ordered Sig/Petty Route Start Time Stop Time Status Last Admin Dose Admin Levofloxacin 750 mg/Prmx 150 ml @ 100 mls/hr Q48H IV 02/04/17 18:00 02/06/17 17:59 Sodium Chloride (Nss 1000ml) 1,000 ml @ 100 mls/hr Q10H IV 02/02/17 22:00 03/04/17 21:59 02/03/17 08:25 100 MLS/HR Acetaminophen (Tylenol Tab) 650 mg Q4H PRN PO 02/02/17 20:30 03/04/17 20:29 Lorazepam (Ativan Inj) 0.5 mg Q4H PRN IV 02/02/17 20:30 03/04/17 20:29 Aspirin 81 mg 81 mg QAM PO 02/03/17 09:00 03/05/17 08:59 02/03/17 08:25 81 MG Norepinephrine Bitartrate/ Dextrose (Levophed Inj/ D5W 500ml) 508 ml @ 0 mls/hr Q0M PRN IV 02/02/17 20:21 03/04/17 20:20 Vancomycin HCl (Consult) 1 ea UD PRN N/A 02/02/17 21:00 03/04/17 20:59 Imipenem/ Cilastatin Sodium (Consult) 1 ea UD PRN N/A 02/02/17 21:15 03/04/17 21:14 Levofloxacin (Consult) 1 ea UD PRN N/A 02/02/17 21:15 03/04/17 21:14 Ondansetron HCl (Zofran Inj) 4 mg Q6H PRN IV 02/02/17 22:00 03/04/17 21:59 02/02/17 22:02 4 MG Ipratropium [place] (Atrovent 0.02% 0.5MG/2.5ML Neb) 0.5 mg Q2H PRN INH 02/02/17 22:00 03/04/17 21:59 02/03/17 03:23 0.5 MG Levalbuterol 1.25 mg 1.25 mg Q2H PRN INH 02/02/17 22:00 03/04/17 21:59 02/03/17 03:23 1.25 MG Pantoprazole Sodium/Syringe (Protonix Inj/ Syringe) 10 ml @ 5 mls/min BID IV 02/03/17 09:00 03/05/17 08:59 02/03/17 08:39 5 MLS/MIN Zolpidem Tartrate 2.5 mg 2.5 mg HS PRN PO 02/02/17 22:45 03/04/17 22:44 02/02/17 23:14 2.5 MG Imipenem/ Cilastatin Sodium 300 mg/Dextrose 106 ml @ 105 mls/hr Q6H IV 02/03/17 04:00 02/05/17 03:59 02/03/17 08:39 105 MLS/HR Vancomycin HCl 1300 mg/Sodium Chloride 276 ml @ 125 mls/hr DAILY@1000 IV 02/03/17 10:00 02/10/17 09:59 Magnesium Sulfate/ Prmx (Magnesium Sulfate/Premixed D5W) 100 ml @ 100 mls/hr TODAY@0900,1000 IV 02/03/17 09:00 02/03/17 10:59 02/03/17 09:35 100 MLS/HR Objective Vital Signs Date Time Temp Pulse Resp B/P Pulse Ox O2 Delivery O2 Flow Rate FiO2 02/03/17 10:00 86 26 96/46 97 Nasal Cannula 2.0 02/03/17 09:00 85 27 100/62 95 Nasal Cannula 2.0 02/03/17 08:00 36.6 87 22 107/47 94 Nasal Cannula 2.0 02/03/17 08:00 Nasal Cannula 2.0 02/03/17 07:31 94 20 109/58 87 Room Air 02/03/17 06:00 91 15 93/52 16 Nasal Cannula 2.0 02/03/17 05:00 93 35 98/53 94 2.0 02/03/17 04:06 96 Nasal Cannula 2.0 02/03/17 04:00 36.6 89 20 96/47 93 Nasal Cannula 2.0 02/03/17 03:24 92 20 94 Nasal Cannula 2.0 02/03/17 03:00 90 26 105/50 94 Nasal Cannula 2.0 02/03/17 02:00 92 21 113/52 95 Nasal Cannula 2.0 02/03/17 01:00 90 19 100/54 96 Nasal Cannula 2.0 02/03/17 00:04 96 Nasal Cannula 2.0 02/03/17 00:00 36.8 89 29 99/59 97 Nasal Cannula 2.0 02/02/17 23:33 107 24 96/52 75 Nasal Cannula 2.0 02/02/17 21:43 36.6 86 23 105/52 94 Nasal Cannula 2.0 02/02/17 21:26 102/52 02/02/17 21:25 89 32 96 02/02/17 21:15 91 27 84/54 94 02/02/17 21:13 Nasal Cannula 02/02/17 21:05 96 28 94 02/02/17 21:00 89/51 02/02/17 20:55 94 19 93 02/02/17 20:50 89 23 96 02/02/17 20:47 99/52 02/02/17 20:45 70/53 02/02/17 20:41 90/46 02/02/17 20:20 94 26 86/53 96 02/02/17 20:16 85/51 02/02/17 20:15 78/48 02/02/17 20:10 92 36 96 02/02/17 20:00 91 37 85/42 97 02/02/17 19:50 88 26 97 02/02/17 19:45 87/48 02/02/17 19:40 91 31 97 02/02/17 19:30 102 19 86/52 85 02/02/17 19:29 36.6 98 16 86/52 94 02/02/17 19:20 93 29 96 02/02/17 19:18 92 02/02/17 19:10 87 20 94 02/02/17 19:05 94 2.0 02/02/17 19:00 95 24 86/46 91 Room Air 02/02/17 19:00 101 25 86/46 90 02/02/17 18:59 84/41 02/02/17 18:58 89 84/41 02/02/17 18:50 88 27 02/02/17 17:31 36.8 103 20 104/54 92 Room Air Physical Exam General Appearance: WD/WN, no apparent distress Eyes: normal inspection, EOMI, sclerae normal ENT: normal ENT inspection, hearing grossly normal, pharynx normal Neck: supple, no adenopathy, no JVD, trachea midline Respiratory/Chest: chest non-tender, lungs clear, normal breath sounds, no respiratory distress, no accessory muscle use Cardiovascular: regular rate, rhythm, no edema, no gallop, no JVD, no murmur Abdomen: normal bowel sounds, non tender, soft, no organomegaly Extremities: normal range of motion, non-tender, normal inspection, no pedal edema, no calf tenderness, pelvis stable Neurologic/Psychiatric: card lacer jacquard II-XII nml as tested, no motor/sensory deficits, alert, normal mood/affect, oriented x 3 Skin: normal color, warm/dry, no rash Laboratory Results Last 24 Hours Test 02/02/17 18:00 02/02/17 19:15 02/03/17 04:20 02/03/17 09:42 White Blood Count 34.47 K/uL 29.65 K/uL Red Blood Count 4.24 M/uL 3.85 M/uL Hemoglobin 13.4 g/dL 12.0 g/dL Hematocrit 39.8 % 36.6 % Mean Corpuscular Volume 93.9 fL 95.1 fL Mean Corpuscular Hemoglobin 31.6 pg 31.2 pg Mean Corpuscular Hemoglobin Concent 33.7 g/dl 32.8 g/dl Platelet Count 230 K/uL 179 K/uL Mean Platelet Volume 9.4 fL 8.8 fL Neutrophils (%) (Auto) 92.0 % 91.8 % Lymphocytes (%) (Auto) 1.7 % 3.6 % Monocytes (%) (Auto) 5.4 % 3.8 % Eosinophils (%) (Auto) 0.0 % 0.0 % Basophils (%) (Auto) 0.1 % 0.1 % Neutrophils # (Auto) 31.74 K/uL 27.22 K/uL Lymphocytes # (Auto) 0.58 K/uL 1.08 K/uL Monocytes # (Auto) 1.86 K/uL 1.12 K/uL Eosinophils # (Auto) 0.00 K/uL 0.00 K/uL Basophils # (Auto) 0.02 K/uL 0.02 K/uL RDW Standard Deviation 48.8 fL 51.5 fL RDW Coefficient of Variation 14.2 % 14.7 % Immature Granulocyte % (Auto) 0.8 % 0.7 % Immature Granulocyte # (Auto) 0.27 K/uL 0.21 K/uL Red Blood Cell Morphology Unremarkable Urine Color YELLOW Urine Appearance CLEAR Urine pH 5.5 Urine Specific [place] 1.022 Urine Protein NEG Urine Glucose (UA) NEG Urine Ketones NEG Urine Occult Blood NEG Urine Nitrite NEG Urine Bilirubin NEG Urine Urobilinogen NEG Urine Leukocyte Esterase NEG Sodium Level 139 mmol/L 141 mmol/L Potassium Level 4.2 mmol/L 4.5 mmol/L Chloride Level 102 mmol/L 107 mmol/L Carbon Dioxide Level 27 mmol/L 26 mmol/L Anion Gap 10.0 mmol/L 8.0 mmol/L Blood Urea Nitrogen 25 mg/dl 26 mg/dl Creatinine 1.80 mg/dl 1.70 mg/dl Est Creatinine Clear Calc Drug Dose 34.9 ml/min 37.0 ml/min Estimated GFR () 40.9 43.8 Estimated GFR (Non- 35.3 37.8 BUN/Creatinine Ratio 14.1 15.0 Random Glucose 113 mg/dl 111 mg/dl Calcium Level 9.1 mg/dl 7.6 mg/dl Total Bilirubin 0.6 mg/dl 0.7 mg/dl Aspartate Amino Transf (AST/SGOT) 13 U/L 14 U/L Alanine Aminotransferase (ALT/SGPT) 17 U/L 17 U/L Alkaline Phosphatase 84 U/L 69 U/L Total Protein 7.2 gm/dl 6.1 gm/dl Albumin 3.6 gm/dl 2.7 gm/dl Globulin 3.6 gm/dl Albumin/Globulin Ratio 1.0 Thyroid Stimulating Hormone (TSH) 1.360 uIu/ml Lyme Disease IgG Antibody NEG Lyme Disease IgM Antibody NEG Lactic Acid Level 2.1 mmol/L Toxic Vacuolation 1+ Echinocytes 1+ Prothrombin Time 13.5 SECONDS Prothromb Time International Ratio 1.3 Activated Partial Thromboplast Time 35.2 SECONDS Partial Thromboplastin Ratio 1.4 Phosphorus Level 2.6 mg/dl Magnesium Level 1.2 mg/dl Direct Bilirubin 0.2 mg/dl Total Creatine Kinase 185 U/L Creatine Kinase MB 3.3 ng/ml Creatine Kinase MB Ratio 1.8 Troponin I 0.015 ng/ml Assessment and Plan 76 yo male presenting with fever, chills, dry heaves, cough, sore throat for several days. WBC of 34k, hypotensive with BP in the 80's, finding of lingula infiltrate on CT scan - Severe sepsis: source is possible bacterial pneumonia with infiltrate in lingula as well as C diff colitis with diarrhea organ failure is cardiovascular with BP readings in the 80's systolic, responded well to IV fluids, 3.5 liters given and BP 100's systolic this AM LA only 2, repeat pending follow up on blood cultures taper antibiotics to just Levaquin IV for pneumonia, stop Imipenem and Vancomycin IV (MRSA swab negative) add Vancomycin PO 125mg QID for C diff if he continues to be stable can transfer out of ICU later today, continue NSS at 100cc/hr note that echocardiogram done, EF 60-65% - Pneumonia: infiltrate lingula, will treat with Levaquin x 5-7 days minimal cough but had fevers, chills at home with decreased appetite - C diff colitis: diarrhea and + C diff, start Vancomycin 125mg QID x 14 days, Questran for symptoms - Mild PAIGE on CKD, stage III: Cr 1.8 on admission, down to 1.7 this AM, follow UO, hold Lisinopril 20mg repeat labs tomorrow and continue IV fluids today - Hypomagnesemia: replace IV today, repeat tomorrow - HTN: holding Lisinopril and HCTZ due to hypotension, dehydration and PAIGE on CKD resume when BP becomes elevated and Cr stabilizes - DVT prophylaxis: heparin started today Plan: continue fluids, taper antibiotics, can transfer out of ICU later today if stable
[2017-02-03] MEDS ORDERED: METRONIDAZOLE 250 MG TAB PO ONE (10:45)
[2017-02-03] MEDS: CHOLESTYRAMINE LIGHT 4 GM PKT PO SCH ×2 (11:08→22:16)
[2017-02-03 12:40] LABS: CKMB/CK RATIO 2.1 (0-3.0)
[2017-02-03] MEDS ORDERED: RASPBERRY SYRUP 5 ML UDP PO SCH (13:00)
[2017-02-03] MEDS ORDERED: VANCOMYCIN HCL 125 MG/2.5ML SOLN PO SCH (13:00)
--- NOTE | 2017-02-03 14:19 | CRITICAL CARE CONSULTATION ---
DATE OF CONSULTATION: 02/03/2017 CHIEF COMPLAINT: Fever, nausea and vomiting. HISTORY OF PRESENT ILLNESS: Mr. George is a 76-year-old gentleman with a history of chronic obstructive pulmonary disease, who presented to the Emergency Department with complaints of fever to 102 degrees Fahrenheit, nausea and vomiting. He was in his usual state of health up until last evening, although he noted some left shoulder pain yesterday during the day. This is the pain that he had about 6 months ago and had the joint injected around that time. He did not go to the family graduation ceremony because of the pain and when his came home in the evening, she reports that her was a little bit confused and was having some dry heaves. She took his temperature and it was 102. She thought he was more sleepy than usual and tried to convince him to come to the hospital. She is a retired nurse and tells me "he gets sick very quickly." Eventually, she was able to convince him to get in the car, so she could bring him to [facility]. In the Emergency Department, he was evaluated and was given 1 liter of normal saline. After his first liter, he started to become hypotensive. A workup ensued, which included a chest x-ray, CT of the head, abdomen and pelvis, labs, and blood cultures. He was given levofloxacin 750 mg and Zofran in the Emergency Department as well. His imaging studies were significant for chronic sigmoid diverticulosis, nonobstructive bowel pattern, 4.2-cm aneurysm of the infrarenal aspect of the abdominal aorta and consolidative infiltrate in the lingula. He was also found to have a white blood cell count of 34,000 with a significant left shift. Additionally, at some point, he was noted to be in atrial flutter and had some PACs. He was admitted to the hospital and started on vancomycin and Primaxin. He reports that he has not had any significant travel recently and that he and his eat out 2-3 times per week. He is in the [place] on a regular basis, but denies any knowledge of tick bites. He has not had any ill contacts and has not recently been on any antibiotics. He denies headache or visual changes. His reports that he has syncope on occasion. He denies cough, nasal congestion, sore throat, hematemesis, or abdominal pain. Diarrhea started overnight in the hospital and normally he has an episode of diarrhea 3 or 4 times per week. He denies hematochezia, melena, or chest pain. PAST MEDICAL HISTORY: Chronic obstructive pulmonary disease, he is not chronically on oxygen. Duodenal ulcer over 20 years ago, diverticulosis, no colonoscopy for over 20 years, and left shoulder pain status post injection approximately a week ago. PAST SURGICAL HISTORY: Status post bilateral hip replacements. ALLERGIES: PENICILLIN. OUTPATIENT MEDICATIONS: Acetaminophen p.r.n., Celebrex 200 mg b.i.d., Advair 250/50 one puff b.i.d., hydrochlorothiazide 25 mg daily, Combivent 1 puff q.i.d., lisinopril 20 mg daily, magnesium daily, and Zantac 150 mg p.o. daily. SOCIAL HISTORY: Sixty pack years' worth of tobacco use, he quit in August of 2015. He rarely drinks alcohol, but has a remote history of possible alcohol abuse in the past. 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 FAMILY HISTORY: Significant for uncle Lasha with diabetes mellitus. Mother with gastric cancer. Father with pancreatic cancer. Mother and father both had hypertension. Mother with atrial fibrillation. REVIEW OF SYSTEMS: He is short of breath walking up steps. Diarrhea 3 or 4 times per week. He has been eating well. No known weight loss. Additional review of systems are negative or noncontributory in a 12-point system other than what is presented in the history of present illness. PHYSICAL EXAMINATION: GENERAL: This is an elderly man sitting in bed, in no distress. VITAL SIGNS: Temperature 36.6, heart rate 86, respiratory rate 22-26, blood pressure 96/46, and oxygen saturation 97% on 2 liters nasal cannula. HEENT: Pupils are equally round and reactive to light. He wears glasses. Oral mucosa is moist. Posterior pharynx is clear. He wears an upper plate and has multiple missing teeth in the lower mouth. NECK: No adenopathy and no jugular venous distention. LUNGS: Decreased breath sounds throughout. No rales, rhonchi or wheezes. HEART: Regular rate and rhythm. No murmurs noted. ABDOMEN: Soft, nondistended, and nontender. Active bowel sounds. EXTREMITIES: Warm. No edema. Radial and dorsalis pedis pulses are 1+ bilaterally. CHEST: Symmetric expansion. NEUROLOGIC: He is awake and alert, able to sit up in bed. Strength is 5/5 for his age in the upper and lower extremities. LABORATORY DATA: White blood cell count 34.47 and repeated 29.65, hemoglobin 12, hematocrit 36.6, and platelets 179. Peripheral smear pending. Sodium 141, potassium 4.5, chloride 107, CO2 of 26, BUN 26, creatinine 1.7, and blood sugar 111. Lactic acid 2.1, now 2.2. Calcium 7.6 and magnesium 1.2. AST 14. Remainder of liver function tests within normal limits. Albumin 2.7. PT 13.5, INR 1.3, and PTT 35.2. Urinalysis within normal limits. Lyme IgG and IgM negative. PRESENT MEDICATIONS: Acetaminophen, aspirin, cholestyramine, heparin, Atrovent, Xopenex, Levaquin, Ativan, Flagyl, Zofran, norepinephrine, Protonix, normal saline 100 mL per hour, oral vancomycin, and Ambien. Echocardiogram done today reveals preserved ejection fraction, normal left ventricular wall thickness. CT of the abdomen as reported previously. CT of the brain shows no acute intracranial abnormality. Chest x-ray today shows worsening left lung airspace opacities, suspicious for pneumonitis. EKG from yesterday shows normal sinus rhythm and left anterior fascicular block. EKG from today is pending. Blood cultures x2 pending. Stool culture pending. C. diff toxin positive. IMPRESSION: 1. Nausea, vomiting, fever, and leukocytosis secondary to Clostridium difficile colitis. 2. Pneumonia versus pneumonitis, possible aspiration. 3. Acute kidney injury on chronic kidney disease, creatinine at the end of 2016 was 1.4. 4. Second degree AV block type 1 seen on his rhythm strip in the chart. 5. A 4.2-cm infrarenal abdominal aortic aneurysm identified on CT scan of the abdomen. 6. History of chronic obstructive pulmonary disease. 7. History of diverticulosis. PLAN: NEUROLOGIC: Use acetaminophen for pain. PULMONARY: Change bronchodilators to scheduled from p.r.n. I will give him a flutter valve as well. Wean O2 and consider sputum culture, although he is not producing any sputum presently. INFECTIOUS DISEASE: Continue Levaquin and I agree with discontinuing the imipenem/cilastatin. This is his first episode of C. diff; therefore, I favor a 10-14 day course of oral Flagyl. I will discuss that with Dr. Viera. PO Vancomycin is also on his profile. RENAL: Continue IV fluids and repeat electrolytes. GASTROINTESTINAL: Allow a diet and recheck lactic acid level later today. Continue antibiotics for C. diff. Discontinue proton pump inhibitor and begin H2 lexii p.o. CARDIOVASCULAR: Continue to follow blood pressure carefully. I would favor fluid boluses for any hypotension. Of note, he has not been on Levophed, although it has been on his medication profile. He will need to follow up for his aortic aneurysm and follow white blood cell count and continue subcutaneous heparin. Watch for arrhythmias and syncope. He may benefit from an outpatient holter monitor. HEME: Follow WBC. Misc: PT/OT consults. He looks and feels better than earlier this morning. If he continues to do well , he can be transferred to telemetry later today. SHRADDHA
[2017-02-03] MEDS: METRONIDAZOLE 500 MG TAB PO SCH ×2 (14:39→20:55)
[2017-02-03] MEDS: HEPARIN SOD 5000 UNIT/0.5 ML CARP SQ SCH ×2 (14:40→22:16)
[2017-02-03] MEDS: LEVALBUTEROL 1.25MG/3ML NEB INH SCH ×2 (15:08→19:20)
[2017-02-03] MEDS ORDERED: IPRATROPIUM BROMIDE NEB SOLN 0.02% 2.5 ML VIAL INH SCH (18:00)
[2017-02-03] MEDS: ACETAMINOPHEN 325 MG TAB PO PRN (18:37)
[2017-02-03] MEDS ORDERED: NURSING VERBAL MED ORDER ONE (20:30)
[2017-02-03] MEDS: CeleBREX 200 MG CAP PO SCH (20:55)
[2017-02-03] MEDS: IPRATROPIUM BROMIDE NEB SOLN 0.02% 2.5 ML VIAL INH SCH (21:00)
[2017-02-04] VITALS (8 sets, daily range): BP systolic 104–135; BP diastolic 64–72; PULSE 62–88; TEMP 36.3–37.1; O2SAT 90–94
[2017-02-04] MEDS: LEVALBUTEROL 1.25MG/3ML NEB INH SCH ×2 (01:56→07:04)
[2017-02-04] MEDS: IPRATROPIUM BROMIDE NEB SOLN 0.02% 2.5 ML VIAL INH SCH ×2 (01:56→07:04)
[2017-02-04] MEDS: SODIUM CHLORIDE 0.9% 1000ML 1,000 ML IV SCH ×2 (04:18→14:00)
[2017-02-04 05:54] LABS: BASO % 0.1 %; BASO ABS # 0.02 K/uL (0-0.2); COMPLETE YES; EOS % 0.5 %; HEMATOCRIT 32.6 % (42-52); IG% 0.4 %; LYMPH % 6.5 %; LYMPH ABS # 1.09 K/uL (1.2-3.4); MEAN CELL VOLUME 94.8 fL (80-100); MEAN CORPUSCULAR HEMOGLOBIN 30.2 pg (25-34); MEAN CORPUSCULAR HGB CONC 31.9 g/dl (32-36); MEAN PLATELET VOLUME 8.9 fL (7.4-10.4); MONO % 3.3 %; NEUT % 89.2 %; PLATELET COUNT 144 K/uL (130-400); RED BLOOD COUNT 3.44 M/uL (4.7-6.1); WHITE BLOOD COUNT 16.76 K/uL (4.8-10.8)
[2017-02-04 06:01] LABS: INR 1.1 (0.9-1.1); PARTIAL THROMBOPLASTIN RATIO 1.5; PROTHROMBIN TIME (PATIENT) 11.9 SECONDS (9.0-12.0)
[2017-02-04] MEDS: HEPARIN SOD 5000 UNIT/0.5 ML CARP SQ SCH ×3 (06:02→20:48)
[2017-02-04 06:15] LABS: ALT/SGPT 11 U/L (12-78); AST/SGOT 11 U/L (15-37); BLOOD UREA NITROGEN 22 mg/dl (7-18); BUN/CREATININE RATIO 14.5 (10-20); CALCIUM 8.1 mg/dl (8.5-10.1); CARBON DIOXIDE 24 mmol/L (21-32); CHLORIDE 111 mmol/L (98-107); GLUCOSE 117 mg/dl (70-99); SODIUM 143 mmol/L (136-145)
[2017-02-04 06:37] LABS: ALKALINE PHOSPHATASE 63 U/L (45-117); PHOSPHORUS 1.6 mg/dl (2.5-4.9)
[2017-02-04] MEDS: ASPIRIN 81 MG ECTAB PO SCH (07:46)
[2017-02-04] MEDS: RANITIDINE HCL 150 MG TAB PO SCH (07:47)
[2017-02-04] MEDS: METRONIDAZOLE 500 MG TAB PO SCH ×3 (07:47→20:50)
[2017-02-04] MEDS: CeleBREX 200 MG CAP PO SCH ×2 (07:47→20:50)
--- NOTE | 2017-02-04 07:53 | DIAGNOSTIC IMAGING REPORT ---
CHEST ONE VIEW PORTABLE HISTORY: neutrophilic leukocytosis COMPARISON: Chest 02/03/2017. FINDINGS: Progressive hazy airspace opacities within the left lung. The heart is stable in size. The right lung is essentially clear. No pleural effusions. No pneumothorax. IMPRESSION: Progressive hazy airspace opacity within the left lung consistent with a pneumonitis. Electronically signed by: Mt Burroughs M.D. 02/04/2017 7:51 AM Dictated Date/Time: 02/04/2017 7:51 AM
[2017-02-04] MEDS ORDERED: POTASSIUM PHOS 3 MMOL/1 ML INFUSION IV STA (08:09)
[2017-02-04] MEDS ORDERED: POTASSIUM PHOSPHATE INJ 30 MMOL in SODIUM CHLORIDE 0.9% 500ML 500 ML IV SCH (09:00)
[2017-02-04] MEDS: CHOLESTYRAMINE LIGHT 4 GM PKT PO SCH (09:46)
--- NOTE | 2017-02-04 11:36 | Hospitalist Progress Note ---
Hospitalist Progress Note Date of Service February 04, 2017. (Tami Rodriguez PA-C) Subjective Pt evaluation today including: conversation w/ patient, conversation w/ family , physical exam, chart review, lab review, review of studies, review of inpatient medication list Patient seen and evaluated. No acute events overnight. He reports frequency of bowel movements about the same. However feels much improved and is anxious to return home. Continues to have a cough. States largely unproductive and nebulizer treatments work well. Blood pressure has stabilized. He is tolerating current drug regimen without adverse effect. Constitutional: No chills, No fever Eyes: No worsening of vision ENT: No nasal symptoms, No sore throat, No trouble swallowing Respiratory: + cough, No shortness of breath, No sputum Cardiovascular: No chest pain Abdomen: + diarrhea, + pain (intermittent cramping), No nausea, No vomiting Musculoskeletal: No calf pain Male : No dysuria Skin: No rash (Tami Rodriguez PA-C) Medications Current Inpatient Medications Medications (Trade) Dose Ordered Sig/Petty Route Start Time Stop Time Status Last Admin Dose Admin Levofloxacin 750 mg/Prmx 150 ml @ 100 mls/hr Q48H IV 02/04/17 18:00 02/06/17 17:59 Sodium Chloride (Nss 1000ml) 1,000 ml @ 100 mls/hr Q10H IV 02/02/17 22:00 03/04/17 21:59 02/04/17 04:18 100 MLS/HR Acetaminophen (Tylenol Tab) 650 mg Q4H PRN PO 02/02/17 20:30 03/04/17 20:29 02/03/17 18:37 650 MG Lorazepam (Ativan Inj) 0.5 mg Q4H PRN IV 02/02/17 20:30 03/04/17 20:29 Aspirin (Ecotrin Tab) 81 mg QAM PO 02/03/17 09:00 03/05/17 08:59 02/04/17 07:46 81 MG Levofloxacin (Consult) 1 ea UD PRN N/A 02/02/17 21:15 03/04/17 21:14 Ondansetron HCl (Zofran Inj) 4 mg Q6H PRN IV 02/02/17 22:00 03/04/17 21:59 02/02/17 22:02 4 MG Levalbuterol (Xopenex 1.25MG/ 0.5ML Neb) 1.25 mg Q2H PRN INH 02/02/17 22:00 03/04/17 21:59 02/03/17 03:23 1.25 MG Zolpidem Tartrate (Ambien Tab) 2.5 mg HS PRN PO 02/02/17 22:45 03/04/17 22:44 02/02/17 23:14 2.5 MG Cholestyramine Resin (Questran Powder Light) 4 gm BID@10,22 PO 02/03/17 10:45 03/05/17 10:44 02/04/17 09:46 4 GM Metronidazole (Flagyl Tab) 500 mg TID PO 02/03/17 14:00 02/17/17 13:59 02/04/17 07:47 500 MG Heparin Sodium (Porcine) (Heparin Sq 5000 Unit/0.5ml) 5,000 unit Q8 SQ 02/03/17 14:00 03/05/17 13:59 02/04/17 06:02 5,000 UNIT Ranitidine HCl (zANTac TAB) 150 mg QAM PO 02/04/17 09:00 03/06/17 08:59 02/04/17 07:47 150 MG Celecoxib 200 mg 200 mg BID PO 02/03/17 21:00 03/05/17 20:59 02/04/17 07:47 200 MG Potassium Phosphate/Sodium Chloride (Potassium Phosphate Inj/Nss 500ml) 510 ml @ 100 mls/hr TODAY@0900 IV 02/04/17 09:00 02/04/17 14:05 02/04/17 09:47 100 MLS/HR Ipratropium [place] (Atrovent Hfa Inhaler) 2 puffs Q6 INH 02/04/17 12:00 03/06/17 11:59 Levalbuterol (Xopenex Hfa Inhaler) 2 puffs Q6 INH 02/04/17 12:00 03/06/17 11:59 (Tami Rodriguez PA-C) Objective Vital Signs Date Time Temp Pulse Resp B/P Pulse Ox O2 Delivery O2 Flow Rate FiO2 02/04/17 08:00 Room Air 02/04/17 07:47 36.4 62 18 120/70 94 Room Air 02/04/17 07:05 84 18 91 Room Air 02/04/17 04:00 Room Air 02/04/17 03:59 36.6 84 22 104/64 91 Room Air 02/04/17 01:56 88 18 90 Room Air 02/03/17 23:59 Room Air 02/03/17 23:44 36.3 85 22 104/62 91 Room Air 02/03/17 20:00 37.0 92 18 104/57 91 Room Air 02/03/17 20:00 91 Room Air 02/03/17 19:20 89 20 95 Nasal Cannula 2.0 02/03/17 16:00 Nasal Cannula 2.0 02/03/17 16:00 36.7 88 22 100/44 93 Nasal Cannula 2.0 02/03/17 15:08 85 20 98 Nasal Cannula 2.0 02/03/17 13:00 85 26 106/50 95 Nasal Cannula 2.0 02/03/17 12:01 36.6 81 25 113/63 96 Nasal Cannula 2.0 02/03/17 12:00 Nasal Cannula 2.0 (Tami Rodriguez, PA-C) Physical Exam General Appearance: WD/WN, no apparent distress Eyes: normal inspection ENT: hearing grossly normal Neck: supple, no JVD, trachea midline Respiratory/Chest: chest non-tender, lungs clear, normal breath sounds Cardiovascular: regular rate, rhythm, no gallop, no murmur Abdomen: normal bowel sounds, non tender, soft Extremities: no pedal edema, no calf tenderness Neurologic/Psychiatric: alert, oriented x 3 Skin: normal color, warm/dry (Tami Rodriguez, PA-C) Laboratory Results Last 24 Hours Test 02/03/17 12:07 02/04/17 05:28 Total Creatine Kinase 124 U/L Creatine Kinase MB 2.6 ng/ml Creatine Kinase MB Ratio 2.1 Troponin I 0.023 ng/ml White Blood Count 16.76 K/uL Red Blood Count 3.44 M/uL Hemoglobin 10.4 g/dL Hematocrit 32.6 % Mean Corpuscular Volume 94.8 fL Mean Corpuscular Hemoglobin 30.2 pg Mean Corpuscular Hemoglobin Concent 31.9 g/dl Platelet Count 144 K/uL Mean Platelet Volume 8.9 fL Neutrophils (%) (Auto) 89.2 % Lymphocytes (%) (Auto) 6.5 % Monocytes (%) (Auto) 3.3 % Eosinophils (%) (Auto) 0.5 % Basophils (%) (Auto) 0.1 % Neutrophils # (Auto) 14.94 K/uL Lymphocytes # (Auto) 1.09 K/uL Monocytes # (Auto) 0.55 K/uL Eosinophils # (Auto) 0.09 K/uL Basophils # (Auto) 0.02 K/uL RDW Standard Deviation 52.2 fL RDW Coefficient of Variation 14.9 % Immature Granulocyte % (Auto) 0.4 % Immature Granulocyte # (Auto) 0.07 K/uL Prothrombin Time 11.9 SECONDS Prothromb Time International Ratio 1.1 Activated Partial Thromboplast Time 38.1 SECONDS Partial Thromboplastin Ratio 1.5 Sodium Level 143 mmol/L Potassium Level 4.0 mmol/L Chloride Level 111 mmol/L Carbon Dioxide Level 24 mmol/L Anion Gap 8.0 mmol/L Blood Urea Nitrogen 22 mg/dl Creatinine 1.50 mg/dl Est Creatinine Clear Calc Drug Dose 41.9 ml/min Estimated GFR () 51.0 Estimated GFR (Non- 44.0 BUN/Creatinine Ratio 14.5 Random Glucose 117 mg/dl Lactic Acid Level 1.1 mmol/L Calcium Level 8.1 mg/dl Phosphorus Level 1.6 mg/dl Magnesium Level 2.0 mg/dl Total Bilirubin 0.3 mg/dl Direct Bilirubin < 0.1 mg/dl Aspartate Amino Transf (AST/SGOT) 11 U/L Alanine Aminotransferase (ALT/SGPT) 11 U/L Alkaline Phosphatase 63 U/L Total Protein 5.6 gm/dl Albumin 2.3 gm/dl (Tami Rodriguez, PA-C) Assessment and Plan 76 yo male presenting with fever, chills, dry heaves, cough, sore throat for several days. WBC of 34k, hypotensive with BP in the 80's, finding of lingula infiltrate on CT scan Severe Sepsis 2/2 Bacterial PNA ([place] Infiltrate) and C. Diff Colitis with Diarrhea: IMPROVING - Vital signs stabilized. BCx with NGTD. Lactic acid normalized - Levaquin 750 mg IV Q48H total 7 days for PNA - Atrovent and Xopenex PETTY and PRN - Metronidazole 500 mg po TID total 10 days and Questran 4 g BID - NSS at 100 mL/hr Mild PAIGE on CKD Stage III: - Appears at baseline Cr today - Continue to hold Lisinopril 20 mg daily Fluid and Electrolytes: - Hypophophatemia: Replete and Monitor - Hypomagnesemia: RESOLVED HTN: - Lisinopril and HCTZ on hold - can resume when BP elevates and Cr stabilizes - will assess tomorrow for reinstitution DVT Prophylaxis: Heparin 5000 units SC Q8H Code Status: FULL RESUSCITATION Disposition: - PT/OT evaluations - pending - Would like to return home possible D/C in 1-2 days Continued [facility] stay due to: multiple IV medications needed (Tami Rodriguez, PAPaolaC) Reviewed: Pt Seen/Exam by Me, [place] Notes, Prior Records, Labs, RAD, EKG (Tashi Fuller M.D.) History Still with diarrhea. Improved SOB. (Tashi Fuller M.D.) Respiratory: positive: cough Cardiovascular: denies chest pain, denies edema, denies no symptoms reported, denies other, denies palpitations, denies see HPI, denies syncope Gastrointestinal/Abdominal: positive: diarrhea Genitourinary: negative discharge, negative dysuria, negative frequency, negative hematuria, negative no symptoms reported, negative nocturia, negative other, negative pain, negative see HPI Musculoskeletal: negative: back pain, gout, joint pain, joint swelling, muscle pain, muscle stiffness, neck pain, no symptoms reported, other, see HPI Skin: negative: change in color, change in hair/nails, dryness, lesions, lumps , no symptoms reported, other, rash, see HPI Neurological/Psych: negative: anxiety, depressed, emotional problems, headache , no symptoms reported, numbness, other, paresthesia, pre-existing deficit, see HPI, seizure, tingling, tremors, weakness Hematologic/Lymphatic: negative: anemia, blood clots, easy bleeding, easy bruising, no symptoms reported, other, see HPI, swollen glands (Tashi Fuller M.D.) General Appearance: WD/WN Ears, Nose, Throat: normal ENT inspection Neck: non-tender Respiratory: chest non-tender, lungs clear Cardiovascular: normal peripheral pulses, regular rate, rhythm, no murmur Gastrointestinal: normal bowel sounds, non tender, soft Extremities: normal range of motion Neurologic/Psychiatric: alert, normal mood/affect, oriented x 3 Skin Characteristics: normal color (Tashi Fuller M.D.) Assessment/Plan C.diff colitis, PNA, HTN, ? Atrial flutter, PACs. Continue with IV abx for PNA. On oral Vanco for C.diff. Replete Phos Will ask for Cards opinion reg. Atrial flutter (paroxysmal). (Tashi Fuller M.D.)
[2017-02-04 12:45] LABS: BUN/CREATININE RATIO 14.7 (10-20); CALCIUM 8.2 mg/dl (8.5-10.1); CREATININE 1.4 mg/dl (0.60-1.40); PHOSPHORUS 1.8 mg/dl (2.5-4.9)
[2017-02-04] MEDS: IPRATROPIUM BROMIDE HFA INHALER INH SCH ×2 (14:14→17:28)
[2017-02-04] MEDS: LEValbuterol HFA 15GM INHALER INH SCH ×2 (14:14→17:27)
--- NOTE | 2017-02-04 16:46 | Cardiology Consultation ---
Cardiology Consultation Date of Consultation: February 04, 2017. Requesting Physician: Dr. Rodriguez Reason for Consultation: Atrial arrhythmia Pt evaluation today including: conversation w/ patient, physical exam, lab review, review of studies, review of inpatient medication list History of Present Illness This is a very pleasant 76-year-old gentleman who has no known cardiovascular history although he does have a long history of smoking (although he no longer smokes) and does have significant lung disease. His presentation here was due to nausea and an elevated temperature. He was also observed to have pneumonia and was somewhat hypotensive in the emergency room with a labile blood pressure. He received intravenous hydration and antibiotics, he also had acute renal insufficiency. He was also identified as having an abdominal aortic aneurysm on CT scan which will need to be observed in the future. On telemetry monitoring he was observed to have an irregular rate, frequent premature atrial beats but also was observed to have periods of what appears to be atrial fibrillation. At the time of my evaluation he was unaware of having palpitations, was not familiar with having atrial fibrillation although he mentioned that he thought his mother had it (although by his description sounds more like SVT). He has never had exertional chest discomfort. Past Medical/Surgical History (1) Right Hip DJD (2) CKD (chronic kidney disease) (3) Left Hip DJD (4) COPD (chronic obstructive pulmonary disease) Family History Diabetes mellitus FH: cancer FH: heart disease Hypertension Social History Smoking Status: Former Smoker History of Alcohol Use: No Review of Systems Constitutional: + fever, No weakness, No weight loss Respiratory: + cough, No shortness of breath, No sputum Cardiac: No chest pain, No edema, No palpitations Abdomen: + nausea, + see HPI, + vomiting, No GI bleeding, No diarrhea, No pain Male : No nocturia more than once/night, No sexual dysfunction, No slowing stream, No urinary frequency Neurologic: No balance problems, No numbness/tingling, No paralysis, No weakness Heme: No abnormal bleeding/bruising, No clotting problems Endo: No fatigue Skin: No problem reported All Other Systems: Reviewed and Negative Allergies Coded Allergies: Penicillins (Verified Allergy, Unknown, HIVES, 10/18/16) Medications Current Inpatient Medications Medications (Trade) Dose Ordered Sig/Petty Route Start Time Stop Time Status Last Admin Dose Admin Levofloxacin 750 mg/Prmx 150 ml @ 100 mls/hr Q48H IV 02/04/17 18:00 02/06/17 17:59 Sodium Chloride (Nss 1000ml) 1,000 ml @ 100 mls/hr Q10H IV 02/02/17 22:00 03/04/17 21:59 02/04/17 14:00 100 MLS/HR Acetaminophen (Tylenol Tab) 650 mg Q4H PRN PO 02/02/17 20:30 03/04/17 20:29 02/03/17 18:37 650 MG Lorazepam (Ativan Inj) 0.5 mg Q4H PRN IV 02/02/17 20:30 03/04/17 20:29 Aspirin (Ecotrin Tab) 81 mg QAM PO 02/03/17 09:00 03/05/17 08:59 02/04/17 07:46 81 MG Levofloxacin (Consult) 1 ea UD PRN N/A 02/02/17 21:15 03/04/17 21:14 Ondansetron HCl (Zofran Inj) 4 mg Q6H PRN IV 02/02/17 22:00 03/04/17 21:59 02/02/17 22:02 4 MG Levalbuterol (Xopenex 1.25MG/ 0.5ML Neb) 1.25 mg Q2H PRN INH 02/02/17 22:00 03/04/17 21:59 02/03/17 03:23 1.25 MG Zolpidem Tartrate (Ambien Tab) 2.5 mg HS PRN PO 02/02/17 22:45 03/04/17 22:44 02/02/17 23:14 2.5 MG Metronidazole (Flagyl Tab) 500 mg TID PO 02/03/17 14:00 02/17/17 13:59 02/04/17 14:35 500 MG Heparin Sodium (Porcine) (Heparin Sq 5000 Unit/0.5ml) 5,000 unit Q8 SQ 02/03/17 14:00 03/05/17 13:59 02/04/17 14:39 5,000 UNIT Ranitidine HCl (zANTac TAB) 150 mg QAM PO 02/04/17 09:00 03/06/17 08:59 02/04/17 07:47 150 MG Celecoxib (CeleBREX CAP) 200 mg BID PO 02/03/17 21:00 03/05/17 20:59 02/04/17 07:47 200 MG Ipratropium [place] (Atrovent Hfa Inhaler) 2 puffs Q6 INH 02/04/17 12:00 03/06/17 11:59 02/04/17 14:14 2 PUFFS Levalbuterol (Xopenex Hfa Inhaler) 2 puffs Q6 INH 02/04/17 12:00 03/06/17 11:59 02/04/17 14:14 2 PUFFS Physical Exam Vital Signs Past 12 Hours Date Time Temp Pulse Resp B/P Pulse Ox O2 Delivery O2 Flow Rate FiO2 02/04/17 16:11 37.1 85 20 119/71 94 Room Air 02/04/17 16:00 Room Air 02/04/17 12:02 36.3 85 18 135/72 93 Room Air 02/04/17 12:00 Room Air 02/04/17 08:00 Room Air 02/04/17 07:47 36.4 62 18 120/70 94 Room Air 02/04/17 07:05 84 18 91 Room Air Constitutional: General Apperance: heathly-appearing Level of Distress: NAD Psychiatric: Mental Status: active & alert Head: normocephalic Eyes: EOM: EOMI ENMT: normal ENT inspection, hearing grossly normal Neck: supple, no masses Lungs: Respiratory effort: no dyspnea, good air movement Auscultation: breath sounds normal, no wheezing Cardiovascular: Heart Auscultation: RRR, no murmurs, no rubs, no gallops Peripheral Pulses: Bruits: none appreciated Abdomen: Bowel Sounds: normal Inspection & Palpation: soft, no tenderness, guarding & rebound, no masses Musculoskeletal: normal strength (5/5 throughout) Extremities: no edema Neurologic: Cranial Nerves: grossly intact Sensation: grossly intact Data Laboratory Results: Last 24 Hours Test 02/04/17 05:28 02/04/17 12:00 White Blood Count 16.76 K/uL Red Blood Count 3.44 M/uL Hemoglobin 10.4 g/dL Hematocrit 32.6 % Mean Corpuscular Volume 94.8 fL Mean Corpuscular Hemoglobin 30.2 pg Mean Corpuscular Hemoglobin Concent 31.9 g/dl Platelet Count 144 K/uL Mean Platelet Volume 8.9 fL Neutrophils (%) (Auto) 89.2 % Lymphocytes (%) (Auto) 6.5 % Monocytes (%) (Auto) 3.3 % Eosinophils (%) (Auto) 0.5 % Basophils (%) (Auto) 0.1 % Neutrophils # (Auto) 14.94 K/uL Lymphocytes # (Auto) 1.09 K/uL Monocytes # (Auto) 0.55 K/uL Eosinophils # (Auto) 0.09 K/uL Basophils # (Auto) 0.02 K/uL RDW Standard Deviation 52.2 fL RDW Coefficient of Variation 14.9 % Immature Granulocyte % (Auto) 0.4 % Immature Granulocyte # (Auto) 0.07 K/uL Prothrombin Time 11.9 SECONDS Prothromb Time International Ratio 1.1 Activated Partial Thromboplast Time 38.1 SECONDS Partial Thromboplastin Ratio 1.5 Sodium Level 143 mmol/L 143 mmol/L Potassium Level 4.0 mmol/L 4.0 mmol/L Chloride Level 111 mmol/L 111 mmol/L Carbon Dioxide Level 24 mmol/L 26 mmol/L Anion Gap 8.0 mmol/L 6.0 mmol/L Blood Urea Nitrogen 22 mg/dl 21 mg/dl Creatinine 1.50 mg/dl 1.40 mg/dl Est Creatinine Clear Calc Drug Dose 41.9 ml/min 44.9 ml/min Estimated GFR () 51.0 55.4 Estimated GFR (Non- 44.0 47.8 BUN/Creatinine Ratio 14.5 14.7 Random Glucose 117 mg/dl 147 mg/dl Lactic Acid Level 1.1 mmol/L Calcium Level 8.1 mg/dl 8.2 mg/dl Phosphorus Level 1.6 mg/dl 1.8 mg/dl Magnesium Level 2.0 mg/dl Total Bilirubin 0.3 mg/dl Direct Bilirubin < 0.1 mg/dl Aspartate Amino Transf (AST/SGOT) 11 U/L Alanine Aminotransferase (ALT/SGPT) 11 U/L Alkaline Phosphatase 63 U/L Total Protein 5.6 gm/dl Albumin 2.3 gm/dl Imaging: Echocardiography shows normal left ventricular function, normal left ventricular size. The left atrium was normal size as well. No significant valvular abnormalities. EKG: Sinus rhythm with premature atrial beats, left axis deviation. Telemetry reviewed: Predominantly sinus rhythm with frequent premature atrial beats, occasional runs of PAT. There was however one episode of what appears to be atrial fibrillation between around 3 AM and 5:30 AM this morning. The rate was controlled. Assessment & Plan #1. Atrial fibrillation: Although he has a quite irregular cardiac rhythm due to frequent premature atrial beats I believe he did have atrial fibrillation between around 3 AM and 5 AM this morning. The rhythm appears very irregular at that time with no organized atrial activity. At other times the rhythm is quite irregular but there seems to be organized atrial activity. The rate was not much faster than his rate at other times and he did not feel the arrhythmia ( although he may have been sleeping). He has no history of this, however I don't think it would be due to his presentation. We should think about anticoagulation. I discussed it with him but have not started it, I would like to make sure that he is not going to have any further testing before we started. There should be minimal danger in waiting since he is not in atrial fibrillation now. I would however keep him on the monitor overnight. We should make a decision prior to discharge however. Thank you for allowing me to participate in his care.
[2017-02-04] MEDS ORDERED: LEVOFLOXACIN / D5W 750 MG in PREMIXED IN D5W 150 ML IV SCH (18:00)
[2017-02-04] MEDS: ACETAMINOPHEN 325 MG TAB PO PRN (20:52)
[2017-02-04] MEDS: ZOLPIDEM TARTRATE 5 MG TAB PO PRN (20:53)
[2017-02-05] MEDS: SODIUM CHLORIDE 0.9% 1000ML 1,000 ML IV SCH ×2 (00:46→09:30)
[2017-02-05] MEDS: LEValbuterol HFA 15GM INHALER INH SCH ×3 (01:06→11:16)
[2017-02-05] MEDS: IPRATROPIUM BROMIDE HFA INHALER INH SCH ×3 (01:06→11:16)
[2017-02-05 03:39] VITALS: BP 125/73; PULSE 78; TEMP 36.7; O2SAT 94
[2017-02-05] MEDS: HEPARIN SOD 5000 UNIT/0.5 ML CARP SQ SCH ×2 (05:45→14:00)
[2017-02-05 06:20] LABS: BASO % 0.1 %; BASO ABS # 0.01 K/uL (0-0.2); COMPLETE YES; EOS % 1.3 %; HEMATOCRIT 30.6 % (42-52); IG% 0.2 %; LYMPH % 7.1 %; LYMPH ABS # 0.79 K/uL (1.2-3.4); MEAN CELL VOLUME 94.4 fL (80-100); MEAN CORPUSCULAR HEMOGLOBIN 30.9 pg (25-34); MEAN CORPUSCULAR HGB CONC 32.7 g/dl (32-36); MEAN PLATELET VOLUME 9.5 fL (7.4-10.4); MONO % 5.3 %; PLATELET COUNT 161 K/uL (130-400); RED BLOOD COUNT 3.24 M/uL (4.7-6.1); WHITE BLOOD COUNT 11.13 K/uL (4.8-10.8)
[2017-02-05 06:39] LABS: PARTIAL THROMBOPLASTIN RATIO 1.3; PROTHROMBIN TIME (PATIENT) 11.2 SECONDS (9.0-12.0)
[2017-02-05 06:57] LABS: AST/SGOT 12 U/L (15-37); BLOOD UREA NITROGEN 19 mg/dl (7-18); BUN/CREATININE RATIO 15.4 (10-20); CALCIUM 7.9 mg/dl (8.5-10.1); CARBON DIOXIDE 24 mmol/L (21-32); CHLORIDE 113 mmol/L (98-107); GLUCOSE 104 mg/dl (70-99); MAGNESIUM 1.8 mg/dl (1.8-2.4); POTASSIUM 3.9 mmol/L (3.5-5.1); SODIUM 144 mmol/L (136-145)
[2017-02-05 07:01] LABS: ALKALINE PHOSPHATASE 66 U/L (45-117); ALT/SGPT 12 U/L (12-78); PHOSPHORUS 1.7 mg/dl (2.5-4.9)
[2017-02-05 07:31] VITALS: BP 152/67; PULSE 84; TEMP 36.7; O2SAT 96
[2017-02-05] MEDS: CeleBREX 200 MG CAP PO SCH (07:46)
[2017-02-05] MEDS: METRONIDAZOLE 500 MG TAB PO SCH ×2 (07:46→14:04)
[2017-02-05] MEDS: RANITIDINE HCL 150 MG TAB PO SCH (07:46)
[2017-02-05] MEDS: ASPIRIN 81 MG ECTAB PO SCH (07:46)
[2017-02-05] MEDS ORDERED: VANCOMYCIN TROUGH ONE (09:30)
--- NOTE | 2017-02-05 09:50 | Cardiology Follow-Up ---
Subjective Date of Service: February 05, 2017. Pt evaluation today including: conversation w/ patient, conversation w/ family , physical exam, lab review, review of studies, review of inpatient medication list History of Present Illness This is a very pleasant 76-year-old gentleman who has no known cardiovascular history although he does have a long history of smoking (although he no longer smokes) and does have significant lung disease. His presentation here was due to nausea and an elevated temperature. He was also observed to have pneumonia and was somewhat hypotensive in the emergency room with a labile blood pressure. He received intravenous hydration and antibiotics, he also had acute renal insufficiency. He was also identified as having an abdominal aortic aneurysm on CT scan which will need to be observed in the future. On telemetry monitoring he was observed to have an irregular rate, frequent premature atrial beats but also was observed to have periods of what appears to be atrial fibrillation. He is not familiar with having atrial fibrillation although he mentioned that he thought his mother had it (although by his description sounds more like SVT). He has never had exertional chest discomfort but has risk factors for CAD. His echocardiogram this admission showed normal left ventricular size and function with no wall motion abnormalities. Today he notes that his bowels have improved and he is not having any difficulty with shortness of breath and continues to have no palpitations. Social History Smoking Status: Former Smoker History of Alcohol Use: No Review of Systems Respiratory: + cough, No shortness of breath, No sputum Cardiac: No chest pain, No edema, No palpitations Medications Cardiovascular: Item Value Date Time Heparin Sodium 5,000 unit 02/03/17 1400 (Porcine) Q8/SQ 02/05/17 0545 (Heparin Sq 5000 Unit/0.5ml) Aspirin 81 mg 02/03/17 0900 (Ecotrin Tab) QAM/PO 02/05/17 0746 Objective Vital Signs Past 12 Hours Date Time Temp Pulse Resp B/P Pulse Ox O2 Delivery O2 Flow Rate FiO2 02/05/17 08:00 Room Air 02/05/17 07:31 36.7 84 20 152/67 96 Room Air 02/05/17 04:00 Room Air 02/05/17 03:39 36.7 78 22 125/73 94 Room Air 02/04/17 23:59 Room Air 02/04/17 23:56 36.9 80 18 117/66 92 Room Air Last Recorded Weight-Kilograms: 85.300 Intake & Output 8-Hour Column 02/04/17 02/04/17 02/05/17 15:59 23:59 07:59 Intake Total 1525 ml 984 ml 755 ml Output Total 175 ml Balance 1525 ml 984 ml 580 ml 24-Hour Column 02/05/17 07:59 Intake Total 3264 ml Output Total 175 ml Balance 3089 ml Physical Exam Constitutional: General Apperance: heathly-appearing Level of Distress: NAD Lungs: Respiratory effort: no dyspnea, good air movement Auscultation: breath sounds normal, no wheezing Cardiovascular: Heart Auscultation: RRR, no murmurs, no rubs, no gallops Peripheral Pulses: Bruits: none appreciated Extremities: no edema Data Laboratory Results: Last 24 Hours Test 02/04/17 12:00 02/05/17 05:42 Sodium Level 143 mmol/L 144 mmol/L Potassium Level 4.0 mmol/L 3.9 mmol/L Chloride Level 111 mmol/L 113 mmol/L Carbon Dioxide Level 26 mmol/L 24 mmol/L Anion Gap 6.0 mmol/L 7.0 mmol/L Blood Urea Nitrogen 21 mg/dl 19 mg/dl Creatinine 1.40 mg/dl 1.20 mg/dl Est Creatinine Clear Calc Drug Dose 44.9 ml/min 52.4 ml/min Estimated GFR () 55.4 66.7 Estimated GFR (Non- 47.8 57.6 BUN/Creatinine Ratio 14.7 15.4 Random Glucose 147 mg/dl 104 mg/dl Calcium Level 8.2 mg/dl 7.9 mg/dl Phosphorus Level 1.8 mg/dl 1.7 mg/dl White Blood Count 11.13 K/uL Red Blood Count 3.24 M/uL Hemoglobin 10.0 g/dL Hematocrit 30.6 % Mean Corpuscular Volume 94.4 fL Mean Corpuscular Hemoglobin 30.9 pg Mean Corpuscular Hemoglobin Concent 32.7 g/dl Platelet Count 161 K/uL Mean Platelet Volume 9.5 fL Neutrophils (%) (Auto) 86.0 % Lymphocytes (%) (Auto) 7.1 % Monocytes (%) (Auto) 5.3 % Eosinophils (%) (Auto) 1.3 % Basophils (%) (Auto) 0.1 % Neutrophils # (Auto) 9.57 K/uL Lymphocytes # (Auto) 0.79 K/uL Monocytes # (Auto) 0.59 K/uL Eosinophils # (Auto) 0.15 K/uL Basophils # (Auto) 0.01 K/uL RDW Standard Deviation 51.2 fL RDW Coefficient of Variation 14.8 % Immature Granulocyte % (Auto) 0.2 % Immature Granulocyte # (Auto) 0.02 K/uL Prothrombin Time 11.2 SECONDS Prothromb Time International Ratio 1.0 Activated Partial Thromboplast Time 34.7 SECONDS Partial Thromboplastin Ratio 1.3 Magnesium Level 1.8 mg/dl Total Bilirubin 0.3 mg/dl Direct Bilirubin < 0.1 mg/dl Aspartate Amino Transf (AST/SGOT) 12 U/L Alanine Aminotransferase (ALT/SGPT) 12 U/L Alkaline Phosphatase 66 U/L Total Protein 5.4 gm/dl Albumin 2.2 gm/dl Telemetry reviewed: Sinus rhythm with very frequent premature atrial beats, brief episodes of atrial fibrillation since yesterday. Assessment and Plan #1. Atrial fibrillation: Although he has a quite irregular cardiac rhythm due to frequent premature atrial beats I believe he did have atrial fibrillation between around 3 AM and 5 AM on the morning of 02/04/2017. He has had other episodes since yesterday which are consistent with atrial fibrillation as well. The rhythm at these times appears very irregular with no organized atrial activity. At other times the rhythm is quite irregular but there seems to be organized atrial activity. The rate during atrial fibrillation is not much faster than his rate at other times and he does not feel the arrhythmia and I suspect he has it at other times and we just picked that up since he was on the monitor here. I don't think it would be due to his presentation. We should strongly consider anticoagulation. I discussed it with him and his but have not started it, I would like to make sure that he is not going to have any further testing before it is started. There should be minimal danger in waiting since he is not in atrial fibrillation now. I would recommend starting Eliquis 5 mg twice a day and discontinuing the aspirin. I would however keep him on the monitor while he is here. #2. Abdominal aortic aneurysm: He has an incidental finding of a 4.2 cm abdominal aortic aneurysm on his CT scan, this is asymptomatic. This should be followed with CAT scans in the future. This probably indicates that he does have atherosclerosis, although he has no symptoms of coronary artery disease. Although we could use aspirin for this I would recommend using the eliquis instead since he has clear indication for that and the risk of bleeding on aspirin and eliquis is increased substantially. His blood pressure is quite elevated at times, he was on lisinopril as an outpatient. I think it would be prudent to place him on a beta lexii for his hypertension in view of his abdominal aortic aneurysm. I will start that, he may well need the HALEY inhibitor as well. If he goes home I will plan on seeing him in follow-up in around one month. I can evaluate the ongoing use of Eliquis at that time. Thank you for allowing me to participate in his care.
[2017-02-05] MEDS ORDERED: POTASSIUM PHOS 3 MMOL/1 ML INFUSION IV STA (10:11)
[2017-02-05] MEDS ORDERED: POTASSIUM PHOSPHATE INJ 30 MMOL in SODIUM CHLORIDE 0.9% 500ML 500 ML IV SCH (10:30)
[2017-02-05] MEDS ORDERED: METOPROLOL SUCC 50MG EXT REL TAB PO ONE (10:30)
[2017-02-05 10:52] VITALS: BP 146/75; PULSE 82; O2SAT 95
[2017-02-05 13:00] VITALS: BP 137/69; PULSE 79; TEMP 36.8; O2SAT 96
[2017-02-05] MEDS ORDERED: APIX1TAB3 PO (13:20)
[2017-02-05] MEDS ORDERED: LISI-725 PO (13:20)
[2017-02-05] MEDS ORDERED: LEVO750T23 PO ×2 (13:20→13:32)
[2017-02-05] MEDS ORDERED: MTR500 PO (13:20)
[2017-02-05] MEDS ORDERED: TPRSR50 PO (13:20)
[2017-02-05] MEDS ORDERED: KPH250 PO (13:26)
--- NOTE | 2017-02-05 13:41 | Discharge Instructions ---
Discharge Instructions Date of Service February 05, 2017. Admission Reason for Admission: Hypotension, Neutrophilic Leukocytosis Discharge Discharge Diagnosis / Problem: Clostridium Difficile and Pneumonia Discharge Goals Goal(s): Decrease discomfort, Improve function, Increase independence Activity Recommendations Activity Limitations: as noted below Lifting Limitations: gradually increase as tolerated Exercise/Sports Limitations: gradually increase as tolerated . Instructions / Follow-Up Instructions / Follow-Up Sepsis from Bacterial Pneumonia and Clostridium Difficile: - Continue Levaquin 750 mg daily - take one dose on 02/07/17 this is dosed every other day to protect your kidneys - after this last dose you will complete antibiotics - Continue Flagyl 500 mg three times a day for the diarrhea - You may continue your home inhalers as previously prescribed Electrolytes: - Your phosphorus level was low and we will replace that over the next week and have you get blood work on that will be sent to your family doctor Mild Acute Kidney Injury: - This was likely due to infection and dehydration and has normalized Paroxysmal Atrial Fibrillation: - You will be started on a blood thinner to help reduce risk of blood clots than can cause strokes from this heart rhythm. You currently are in a normal heart rhythm at this time - Take Eliquis 5 mg twice a day - You were started on Metoprolol for your heart rate and to help control atrial fibrillation and you will take this once a day -- To prevent a low blood pressure we have reduced your lisinopril to 10 mg daily instead of 20 mg - this may be changed when you see your family doctor - STOP YOUR HCTZ BLOOD PRESSURE MEDICATION - Follow-up with Dr. Huertas in 1 month to monitor your rhythm Follow-Up: - See your family doctor next week as previously scheduled - See cardiology - Dr. Huertas in 1 month to monitor heart rhythm Current Hospital Diet Patient's current hospital diet: Regular Diet Discharge Diet Recommended Diet: Regular Diet Pending Studies Studies pending at discharge: no Medical Emergencies . Who to Call and When: Medical Emergencies: If at any time you feel your situation is an emergency, please call 911 immediately. . Non-Emergent Contact Non-Emergency issues call your: Primary Care Provider Call Non-Emergent contact if: you have a fever, your pain is concerning you, you have any medication questions . . "Provider Documentation" section prepared by Tami Rodriguez. . VTE Core Measure Inpt VTE Proph given/why not?: SCD's
[2017-02-05 15:00] VITALS: BP 137/69; PULSE 79; TEMP 36.8; O2SAT 96
--- NOTE | 2017-02-05 16:49 | Discharge Summary ---
Discharge Summary Date of Service February 05, 2017. (Tami Rodriguez PA-C) Discharge Summary Admission Date: February 02, 2017 at 20:56 Discharge Date: February 05, 2017 Discharge Disposition: Home Principal Diagnosis: Severe Sepsis from C. Diff and Pneumonia Problems/Secondary Diagnoses: 1. Paroxysmal Atrial Fibrillation (New Onset) 2. Hypertension 3. AAA 4. GERD/Duodenal Ulcer Procedures: 1. ABDOMEN AND PELVIS CT WITHOUT CONTRAST FINDINGS: Consolidative infiltrate of the lingula. Slight dependent bibasilar atelectatic change. Configuration of liver and spleen are unremarkable. Pancreas is unremarkable. Kidneys negative for hydronephrosis or calcification. There is mild infrarenal aneurysmal dilatation of the abdominal aorta with a maximum dimension of 4.2 cm. Bowel pattern is considered nonobstructive. There are findings of chronic sigmoid diverticulosis. There is no evidence for acute diverticulitis. IMPRESSION: 1. Chronic sigmoid diverticulosis. 2. Nonobstructive bowel pattern. 3. 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 4. Consolidative infiltrate of the lingula. 2. CHEST ONE VIEW PORTABLE FINDINGS: Progressive hazy airspace opacities within the left lung. The heart is stable in size. The right lung is essentially clear. No pleural effusions. No pneumothorax. IMPRESSION: Progressive hazy airspace opacity within the left lung consistent with a pneumonitis. Consultations: 1. Cardiology 2. Intensivists (Tami Rodriguez PA-C) Medication Reconciliation New Medications: Apixaban (Eliquis) 5 Mg Tab 5 MG PO BID for 90 Days, #180 TAB Levofloxacin (Levaquin) 750 Mg Tab 1 TAB PO Q48H for 1 Day, TAB Take dose on 02/07 then stop. Phosphorus (K-Phos Neutral) 250 Mg Tab 1 TAB PO DAILY for 7 Days Metoprolol Succinate (Metoprolol Succinate ER) 50 Mg Tabcr 50 MG PO QAM for 90 Days Metronidazole (Metronidazole) 500 Mg Tab 500 MG PO TID, #22 TAB take one evening dose. Then take three times a day starting 02/06 until finished. Changed Medications: Lisinopril (Zestril) 20 Mg Tab 10 MG PO QAM for 14 Days, #7 TAB (Changed from: 20 MG) Continued Medications: Acetaminophen (Tylenol) 500 Mg Tab 1000 MG PO Q8 PRN for Pain, TAB Celecoxib (CeleBREX) 200 Mg Cap 200 MG PO BID, CAP Fluticasone Prop/Salmeterol (Advair Diskus 250/50 60 Dose) 1 Ea Aerp 1 PUFF INH BID, INHALER Ipratropium-Albuterol (Combivent Respimat) 1 Aer Aer 1 PUFF INH QID Magnesium Oxide (Mg Supplement (Magnesium) Unknown Strength Tab 1 TAB PO DAILY Ranitidine (Zantac) 150 Mg Tab 150 MG PO HS Discontinued Medications: Hydrochlorothiazide (Hctz) 25 Mg Tab 25 MG PO QAM Discharge Exam REVIEW OF SYSTEMS Constitutional: No chills, No fever Eyes: No worsening of vision ENT: No nasal symptoms, No sore throat, No trouble swallowing Respiratory: + cough, No shortness of breath, No sputum Cardiovascular: No chest pain Abdomen: + diarrhea (improving), + pain (intermittent cramping), No nausea, No vomiting Musculoskeletal: No calf pain Male : No dysuria Skin: No rash PHYSICAL EXAM General Appearance: WD/WN, no apparent distress Eyes: normal inspection ENT: hearing grossly normal Neck: supple, no JVD, trachea midline Respiratory/Chest: chest non-tender, lungs clear, normal breath sounds Cardiovascular: regular rate, rhythm, no gallop, no murmur Abdomen: normal bowel sounds, non tender, soft Extremities: no pedal edema, no calf tenderness Neurologic/Psychiatric: alert, oriented x 3 Skin: normal color, warm/dry (Tami Rodriguez, BHARAT) Hospital Course ADMISSION: The patient is a 76-year-old male presents emergency department with symptoms including dry heaves, nausea, generalized weakness, elevated temperature and lack of appetite. The patient's reports his temperature was 102F about 2 hours prior to arrival, for which he took 2 Tylenol about 1 hour prior to arrival. He has not had any recent travel, and has no known sick contacts. He has some chronic shortness of breath due to COPD, and uses inhalers at home. He has a history of bilateral total hip arthroplasties. HOSPITAL COURSE: Mr. Georeg was admitted for severe sepsis related to C. diff and suggestion of PNA with a lingula infiltrate. He was initially admitted to the ICU due to hypotension that responded adequately with aggressive fluid resuscitation without the need for pressor medication. Upon presentation he was febrile, WBCs at 34, and with elevated lactic acid. He was started on antibiotic therapy and discharge with Levaquin 750 mg to take one dose on 02/07 to finish a 7 day course. Due to PAIGE on CKD Stage 3, his Levaquin was dosed Q48H. For the C. diff he was placed on Metronidazole 500 mg po TID to finish a 10 day course. With fluid resuscitation, evidence of PAIGE resolved with discharged Cr of 1.2 which baseline appears to be 1.5 per hospital records. Any electrolyte abnormality was addressed and repleted. He continued to have hypophosphatemia and was discharged on phosphorus 250 mg one tablet daily for 7 days with a prescription. Did replete gently as phosphorus replacement can have a mild laxative effect. Provided a prescription for BMP and phosphorus levels to get on and have results forwarded to PCP. During admission, telemetry monitoring showed atrial fibrillation and cardiology was consulted. He was started on Metoprolol 50 mg daily and Eliquis 5 mg BID. Due to concern for hypotension his lisinopril was decreased to 10 mg daily and his HCTZ discontinued. Pending further BP monitoring his full dose lisinopril may be resumed per PCP discretion. Patient is hemodynamically stable without acute complaints and is optimal for discharge home. Per patient, he has already established PCP appointment for next week. Per cardiology, plan is to follow-up as outpatient in approx. one month. Total Time Spent: Greater than 30 minutes This includes examination of the patient, discharge planning, medication reconciliation, and communication with other providers. (Tami Rodriguez PA-C) Discharge Instructions Please refer to the electronic Patient Visit Report (Discharge Instructions) for additional information. (Tami Rodriguez PA-C) Additional Copies To Richmond Bennett M.D.
[2017-02-06] MEDS ORDERED: METOPROLOL SUCC 50MG EXT REL TAB PO SCH (09:00)
[2017-06-04] MEDS ORDERED: TIOT1AER INH (10:13)
[2017-06-04] MEDS ORDERED: POLYSOL4 OPB (10:13)
[2017-06-04] MEDS ORDERED: ACET-1256 PO (10:28)
[2017-06-04] MEDS ORDERED: LISI-725 PO (10:28)
[2017-06-04] MEDS ORDERED: METO50TA7 PO (10:28)
[2017-06-04] MEDS ORDERED: VGR25 PO (10:28)
[2017-06-04] MEDS ORDERED: MAGN1TAB19 PO (10:28)
[2017-06-04] MEDS ORDERED: CLB/200 PO (10:28)
[2017-06-04] MEDS ORDERED: ADVIN25/60 INH (10:28)
[2017-06-04] MEDS ORDERED: ZOLP5TAB6 PO (10:28)
[2017-06-04] MEDS ORDERED: FLM4 PO (10:28)
[2017-06-04] MEDS ORDERED: PANT40TA PO (10:28)
== END 2017-02-05 17:20 | disposition home or self-care (01) | DRG 871 ==
LOC: ENRESERVDT → ENRESERVTM → C.MSICU 20:56 → C.2T 02-03 18:24
PROVIDERS: ADMIT Hospitalist; ATTEND Internal Medicine
DX: A41.89 Other specified sepsis (principal); J15.9 Unspecified bacterial pneumonia; I48.92 Unspecified atrial flutter; A04.7 Enterocolitis due to Clostridium difficile; N17.9 Acute kidney failure, unspecified; J44.9 Chronic obstructive pulmonary disease, unspecified; R65.20 Severe sepsis without septic shock; I71.4 Abdominal aortic aneurysm, without rupture; K57.30 Diverticulosis of large intestine without perforation or abscess without bleeding; N18.3 Chronic kidney disease, stage 3 (moderate); Z96.643 Presence of artificial hip joint, bilateral; I44.1 Atrioventricular block, second degree; Z83.3 Family history of diabetes mellitus; E83.42 Hypomagnesemia; Z88.0 Allergy status to penicillin; Z87.891 Personal history of nicotine dependence; E83.39 Other disorders of phosphorus metabolism; J18.9 Pneumonia, unspecified organism; K92.2 Gastrointestinal hemorrhage, unspecified; E86.0 Dehydration; I48.91 Unspecified atrial fibrillation

== ENCOUNTER 2017-02-08 10:27 | Inpatient (IN) | payer OTHER ==
[~2017-02-08] VITALS: Ht 177.8 cm; Wt 81.0 kg
[~2017-02-08 10:27] MED LIST changes: -ACET-1138 PO; +ACET-1256 PO; +ADVIN25/60 INH; +APIX1TAB3 PO; -ASPEC325 PO; -CIALIS; +CLB/200 PO; -FRRG PO; -HYDR25TA4 PO; +IPRA1AER2 INH; +KPH250 PO; +LEVO750T23 PO; +LISI-725 PO; -LSN20 PO; +MAGN250T8 PO; -MENT1800 TOP; +MTR500 PO; -TAMS0.4C38 PO; +TPRSR50 PO; -ULT50X PO
[2017-02-08] MEDS ORDERED: HydrALAZINE HCL 20 MG/ML VIAL IV STA (10:46)
[2017-02-08] MEDS ORDERED: SODIUM CHLORIDE 0.9% 1000ML 500 ML IV STA (10:46)
[2017-02-08] MEDS ORDERED: SODIUM CHLORIDE 0.9% 1000ML 1,000 ML IV STA (10:46)
[2017-02-08] MEDS ORDERED: ZOLP5TAB PO (10:57)
--- NOTE | 2017-02-08 11:02 | EMERGENCY ROOM VISIT NOTE ---
History Report prepared by Denilson: Carlos Manuel Koenig Under the Supervision of: Dr. Branden Jeronimo M.D. First contact with patient: 10:43 Chief Complaint: HYPERTENSION Stated Complaint: HIGH BP, NO ENERGY, NOT EATING MUCH History of Present Illness The patient is a 76 year old male who presents to the Emergency Room with complaints of elevated blood pressure since being discharged from the hospital three days ago. The patient started to experience severe diarrhea after being admitted to the hospital after becoming acutely hypotensive. He was diagnosed with C. Diff. The patient was started on Levaquin and Flagyl. The patient finished Levaquin yesterday but is still taking Flagyl PO. The patient is still experiencing diarrhea every 45 minutes. He has not been eating or drinking well. He also has increased shortness of breath from his baseline COPD. He denies chest pain. The patient's Lisinopril dose was reduced from 20 mg to 10 mg when he was in the hospital because they were concerned that his blood pressure was dropping too low. He is also on Metoprolol. The patient's gave him the 20 mg of Lisinopril yesterday and today because his blood pressure was elevated. While in the hospital, the patient was also taken off of hydrochlorothiazide. He takes Eliquis now as well as his COPD medications. He has a recent history of atrial fibrillation. Source of History: patient, spouse/significant other Onset: three days ago Position: other (cardiovascular) Quality: other (elevated blood pressure) Timing: other (persistent) Associated Symptoms: + SOB, + diarrhea, No chest pain Review of Systems See HPI for pertinent positives & negatives. A total of 10 systems reviewed and were otherwise negative. Past Medical & Surgical Medical Problems: (1) CKD (chronic kidney disease) (2) COPD (chronic obstructive pulmonary disease) (3) Left Hip DJD (4) Neutrophilic leukocytosis (5) PNEUMONIA, WORSENING DIARRHEA (6) Right Hip DJD (7) Sepsis Family History Diabetes mellitus FH: cancer FH: heart disease Hypertension Social History Smoking Status: Former Smoker Alcohol Use: none Drug Use: none Marital Status: Housing Status: lives with significant other Occupation Status: retired Current/Historical Medications Scheduled Apixaban (Eliquis), 5 MG PO BID Celecoxib (CeleBREX), 200 MG PO BID Fluticasone Prop/Salmeterol (Advair Diskus 250/50 60 Dose), 1 PUFF INH BID Ipratropium-Albuterol (Combivent Respimat), 1 PUFF INH QID Lisinopril (Zestril), 10 MG PO QAM Magnesium Oxide (Mg Supplement (Magnesium), 1 TAB PO DAILY Metoprolol Succinate (Metoprolol Succinate ER), 50 MG PO QAM Metronidazole (Metronidazole), 500 MG PO TID Phosphorus (K-Phos Neutral), 1 TAB PO DAILY Ranitidine (Zantac), 150 MG PO HS Zolpidem Tartrate (Ambien), 2.5 MG PO HS Scheduled PRN Acetaminophen (Tylenol), 1,000 MG PO Q8 PRN for Pain Allergies Coded Allergies: Penicillins (Verified Allergy, Unknown, HIVES, 02/08/17) Physical Exam Vital Signs Date Time Temp Pulse Resp B/P Pulse Ox O2 Delivery O2 Flow Rate FiO2 02/08/17 12:15 82 20 171/91 95 Room Air 02/08/17 11:03 72 20 161/91 94 Room Air 02/08/17 10:59 73 02/08/17 10:32 36.4 78 20 179/102 92 Room Air Physical Exam GENERAL: Patient is in no acute distress. HEENT: No acute trauma, normocephalic atraumatic, mucous membranes are slightly dry, no nasal congestion, no scleral icterus. NECK: No stridor, no adenopathy, no meningismus, trachea is midline. LUNGS: Clear to auscultation bilaterally, no wheeze, no rhonchi, breath sounds equal. HEART: Without murmurs gallops or rubs, regular rate and rhythm. ABDOMEN: Soft, nontender, bowel sounds positive, no hernias, no peritonitis. EXTREMITIES: No cyanosis or edema, full range of motion of all the joints without pain or difficulty, no signs for acute trauma. NEUROLOGIC: Oriented x 3, no acute motor or sensory deficits, no focal weakness. SKIN: No rash, no jaundice, no diaphoresis. Medical Decision & Procedures ER Provider Diagnostic Interpretation: X-ray results as stated below per interpretation by me and the radiologist: CHEST ONE VIEW PORTABLE CLINICAL HISTORY: EVALUATE ALTERED MENTAL STATUS/WEAKNESS COMPARISON STUDY: 02/04/2017 FINDINGS: Focal left basilar infiltrative process. Improved infiltrative process left midlung. The right Lung is clear. No evidence for cardiac enlargement. IMPRESSION: 1. Focal infiltrate left base. 2. Improved left midlung infiltrate. Electronically signed by: Saulo Magaña M.D. 02/08/2017 11:31 AM Dictated Date/Time: 02/08/2017 11:31 AM Laboratory Results 02/08/17 11:00 Red Blood Count 4.12, Mean Corpuscular Volume 92.2, Mean Corpuscular Hemoglobin 30.8, Mean Corpuscular Hemoglobin Concent 33.4, Mean Platelet Volume 9.0, Neutrophils (%) (Auto) 76.0, Lymphocytes (%) (Auto) 12.0, Monocytes (%) (Auto) 8.8, Eosinophils (%) (Auto) 2.0, Basophils (%) (Auto) 0.3, Neutrophils # (Auto) 7.12, Lymphocytes # (Auto) 1.12, Monocytes # (Auto) 0.82, Eosinophils # (Auto) 0.19, Basophils # (Auto) 0.03 02/08/17 11:00 Test 02/08/17 11:00 02/08/17 11:05 White Blood Count 9.36 K/uL (4.8-10.8) Red Blood Count 4.12 M/uL (4.7-6.1) Hemoglobin 12.7 g/dL (14.0-18.0) Hematocrit 38.0 % (42-52) Mean Corpuscular Volume 92.2 fL (80-100) Mean Corpuscular Hemoglobin 30.8 pg (25-34) Mean Corpuscular Hemoglobin Concent 33.4 g/dl (32-36) Platelet Count 245 K/uL (130-400) Mean Platelet Volume 9.0 fL (7.4-10.4) Neutrophils (%) (Auto) 76.0 % Lymphocytes (%) (Auto) 12.0 % Monocytes (%) (Auto) 8.8 % Eosinophils (%) (Auto) 2.0 % Basophils (%) (Auto) 0.3 % Neutrophils # (Auto) 7.12 K/uL (1.4-6.5) Lymphocytes # (Auto) 1.12 K/uL (1.2-3.4) Monocytes # (Auto) 0.82 K/uL (0.11-0.59) Eosinophils # (Auto) 0.19 K/uL (0-0.5) Basophils # (Auto) 0.03 K/uL (0-0.2) RDW Standard Deviation 49.2 fL (36.4-46.3) RDW Coefficient of Variation 14.5 % (11.5-14.5) Immature Granulocyte % (Auto) 0.9 % Immature Granulocyte # (Auto) 0.08 K/uL (0.00-0.02) Erythrocyte Sedimentation Rate 63 mm/hr (0-14) Prothrombin Time 13.3 SECONDS (9.0-12.0) Prothromb Time International Ratio 1.2 (0.9-1.1) Activated Partial Thromboplast Time 34.3 SECONDS (21.0-31.0) Partial Thromboplastin Ratio 1.3 Anion Gap 10.0 mmol/L (3-11) Est Creatinine Clear Calc Drug Dose 57.1 ml/min Estimated GFR () 74.1 Estimated GFR (Non- 64.0 BUN/Creatinine Ratio 9.3 (10-20) Calcium Level 8.5 mg/dl (8.5-10.1) Phosphorus Level 2.1 mg/dl (2.5-4.9) Magnesium Level 1.6 mg/dl (1.8-2.4) Total Bilirubin 0.3 mg/dl (0.2-1) Aspartate Amino Transf (AST/SGOT) 28 U/L (15-37) Alanine Aminotransferase (ALT/SGPT) 19 U/L (12-78) Alkaline Phosphatase 67 U/L (45-117) Troponin I < 0.015 ng/ml (0-0.045) C-Reactive Protein 7.45 mg/dl (0-0.29) Total Protein 6.4 gm/dl (6.4-8.2) Albumin 2.9 gm/dl (3.4-5.0) Globulin 3.5 gm/dl (2.5-4.0) Albumin/Globulin Ratio 0.8 (0.9-2) Urine Color YELLOW Urine Appearance CLEAR (CLEAR) Urine pH 6.5 (4.5-7.5) Urine Specific Totz 1.016 (1.000-1.030) Urine Protein NEG (NEG) Urine Glucose (UA) NEG (NEG) Urine Ketones TRACE (NEG) Urine Occult Blood NEG (NEG) Urine Nitrite NEG (NEG) Urine Bilirubin NEG (NEG) Urine Urobilinogen NEG (NEG) Urine Leukocyte Esterase TRACE (NEG) Urine WBC (Auto) 1-5 /hpf (0-5) Urine RBC (Auto) 0-4 /hpf (0-4) Urine Hyaline Casts (Auto) 1-5 /lpf (0-5) Urine Epithelial Cells (Auto) 10-20 /lpf (0-5) Urine Bacteria (Auto) NEG (NEG) Laboratory results reviewed by me. Medications Administered Medications (Trade) Dose Ordered Sig/Petty Route Start Time Stop Time Status Last Admin Dose Admin Sodium Chloride 500 ml @ 999 mls/hr Q31M STAT IV 02/08/17 10:46 02/08/17 11:16 DC 02/08/17 11:17 999 MLS/HR Sodium Chloride (Nss 1000ml) 1,000 ml @ 200 mls/hr Q5H STAT IV 02/08/17 10:46 02/08/17 15:45 02/08/17 11:17 200 MLS/HR Hydralazine HCl (HydrALAZINE INJ) 5 mg NOW STAT IV 02/08/17 10:46 02/08/17 10:53 DC 02/08/17 11:17 5 MG Magnesium Sulfate (Magnesium Sulfate) 2 gm NOW STAT IV 02/08/17 11:39 02/08/17 11:40 DC 02/08/17 12:15 2 GM ECG Indication: other (hypertensive) Rate (beats per minute): 73 Rhythm: sinus rhythm Findings: PAC, no acute ischemic change ED Course 1045: The patient was evaluated in room C3. A complete history and physical exam was performed. 1046: Hydralazine 5 mg IV, NSS 1000 ml @ 200 mls/hr, NSS 500 ml @ 999 mls/hr. 1139: Magnesium Sulfate 2 gm IV. 1145: Discussed the case with Dr. Huddleston, [facility] [place]. The patient ill be evaluated. 1148: Updated the patient and his . Dr. Huddleston is already at bedside. Medical Decision Differential diagnosis includes medication change, essential hypertension, dehydration, electrolyte imbalance, anemia, failed outpatient treatment, C Diff. There is no leukocytosis, a mild anemia is present. Renal panel testing does not show renal failure, the magnesium is quite low at 1.6. No hepatitis. EKG shows a sinus rhythm, no acute ischemic change. Cardiac enzyme testing 1 is not suggestive of acute cardiac injury. Chest x-ray shows what looks to be a new left lung infiltrate at the base, the left middle lung infiltrate appears to be clearing. There was no pneumothorax or CHF. Urinalysis did not show infection. On exam, the patient did appear dehydrated. There was no cellulitis. He was not febrile or toxic. He was somewhat hypertensive upon arrival. The patient received IV saline, IV hydralazine. He received IV magnesium. Given the hypomagnesemia, given his dehydration, given his failed outpatient management for C. difficile, given the new pneumonia, admission/observation was felt warranted. I spoke to the patient and hospice case manager. The on-call hospitalist was consulted. Consults Time Called: 1140 Consulting Physician: Dr. Huddleston [facility] [place] Hospitalist Returned Call: [phone] The patient ill be evaluated. Impression Primary Impression: PNA (pneumonia) Additional Impressions: Dehydration Hypomagnesemia C. difficile colitis Scribe Attestation The scribe's documentation has been prepared under my direction and personally reviewed by me in its entirety. I confirm that the note above accurately reflects all work, treatment, procedures, and medical decision making performed by me. Departure Information Dispostion Being Evaluated By Hospitalist Referrals Richmond Bennett M.D. (PCP) Patient Instructions My [facility] [address] Problem Qualifiers
[2017-02-08 11:10] LABS: BASO % 0.3 %; BASO ABS # 0.03 K/uL (0-0.2); COMPLETE YES; IG% 0.9 %; LYMPH ABS # 1.12 K/uL (1.2-3.4); MEAN CELL VOLUME 92.2 fL (80-100); MEAN CORPUSCULAR HEMOGLOBIN 30.8 pg (25-34); MEAN CORPUSCULAR HGB CONC 33.4 g/dl (32-36); MONO % 8.8 %; PLATELET COUNT 245 K/uL (130-400); RED BLOOD COUNT 4.12 M/uL (4.7-6.1); WHITE BLOOD COUNT 9.36 K/uL (4.8-10.8)
[2017-02-08 11:18] LABS: MANUAL MICROSCOPIC REQUIRED? NO; REVIEW REQ? NO; URINE APPEARANCE CLEAR (CLEAR); URINE BILIRUBIN NEG (NEG); URINE COLOR YELLOW; URINE NITRITE NEG (NEG); URINE PH 6.5 (4.5-7.5); URINE SPECIFIC GRAVITY 1.016 (1.000-1.030); UROBILINOGEN NEG (NEG); ZZUR CULT IF INDIC CLEAN CATCH NO
[2017-02-08 11:19] LABS: INR 1.2 (0.9-1.1); PARTIAL THROMBOPLASTIN RATIO 1.3; PROTHROMBIN TIME (PATIENT) 13.3 SECONDS (9.0-12.0)
[2017-02-08 11:25] LABS: ALT/SGPT 19 U/L (12-78); BLOOD UREA NITROGEN 10 mg/dl (7-18); BUN/CREATININE RATIO 9.3 (10-20); CARBON DIOXIDE 26 mmol/L (21-32); CHLORIDE 105 mmol/L (98-107); GLUCOSE 106 mg/dl (70-99); MAGNESIUM 1.6 mg/dl (1.8-2.4); POTASSIUM 3.6 mmol/L (3.5-5.1); SODIUM 141 mmol/L (136-145)
[2017-02-08 11:26] LABS: CALCIUM 8.5 mg/dl (8.5-10.1)
[2017-02-08 11:30] LABS: ALB/GLOB RATIO 0.8 (0.9-2); ALKALINE PHOSPHATASE 67 U/L (45-117); AST/SGOT 28 U/L (15-37); PHOSPHORUS 2.1 mg/dl (2.5-4.9)
--- NOTE | 2017-02-08 11:33 | DIAGNOSTIC IMAGING REPORT ---
CHEST ONE VIEW PORTABLE CLINICAL HISTORY: EVALUATE ALTERED MENTAL STATUS/WEAKNESS COMPARISON STUDY: 02/04/2017 FINDINGS: Focal left basilar infiltrative process. Improved infiltrative process left midlung. The right Lung is clear. No evidence for cardiac enlargement. IMPRESSION: 1. Focal infiltrate left base. 2. Improved left midlung infiltrate. Electronically signed by: Saulo Magaña M.D. 02/08/2017 11:31 AM Dictated Date/Time: 02/08/2017 11:31 AM
[2017-02-08] MEDS ORDERED: MAGNESIUM SULFATE 1GM / D5W 1 GM BAG IV STA (11:39)
[2017-02-08] MEDS ORDERED: MAGNESIUM HYDROXIDE SUSP 30 ML UDC PO PRN (12:00)
[2017-02-08] MEDS ORDERED: ZOLPIDEM TARTRATE 5 MG TAB PO PRN (12:00)
[2017-02-08] MEDS ORDERED: HEPARIN SOD 5000 UNIT/0.5 ML CARP SQ SCH (12:00)
[2017-02-08] MEDS ORDERED: ONDANSETRON INJ 2 MG/ML 2 ML VIAL IV PRN (12:00)
[2017-02-08] MEDS ORDERED: POLYETHYLENE (MIRALAX) 17 GM PACK PO PRN (12:00)
[2017-02-08] MEDS ORDERED: ALUMINUM/MAGNESIUM/SIMETH (MAALOX MAX) 30 ML UDC PO PRN (12:00)
[2017-02-08] MEDS ORDERED: HydrALAZINE HCL 20 MG/ML VIAL IV. PRN (12:15)
--- NOTE | 2017-02-08 12:20 | Progress Note ---
Progress Note Date of Service February 08, 2017. Progress Note PNEUMONIA, WORSENING DIARRHEA [id number]
--- NOTE | 2017-02-08 13:03 | HISTORY & PHYSICAL EXAMINATION ---
DATE OF ADMISSION: 02/08/2017 This is a level 3 inpatient admission, 35 minutes. CHIEF COMPLAINT: Worsening diarrhea and more difficulty breathing, spasmodic cough. HISTORY OF PRESENT ILLNESS: The patient is a 76-year-old white male with a significant past medical history of pneumonia, COPD. He comes to the hospital Emergency Department because of the above chief complaint. The patient was just discharged 3 days ago from this hospital on 02/05/2017 after treatment for the C. diff colitis and pneumonia in the lingular infiltration. He was having hypotensive fever, need to be in the ICU and required aggressive IV resuscitations but without the need of pressure medication. In previous admission, he was having severe leukocytosis and elevated lactase. He was treated by Levaquin, has been 7 days course. The patient reported has chronic diarrhea, but in the previous admission he was found to have C. diff positive and he was treated by giving metronidazole. Today is #7 days of metronidazole treatment out of 10 days, however the patient reported has been worsening diarrhea. Not anyhow getting better. The patient reported has cough nonproductive but quite often has spasmodic cough. In the Emergency Room, patient was found lingular infiltration in previous chest x-ray, possible improved, but there was new focal left base infiltration. The patient was found worsening diarrhea. Therefore, I was requested to admit the patient. He was found to have accelerated hypertension as well. Blood pressure elevated. The patient feels generalized weakness, decreased appetite, but no fever and chill. REVIEW OF SYSTEMS: Denied fever or chill. Denied chest pain, palpitations. Denied wheezing. Denied lower extremity swelling. Denied nausea, vomiting, abdominal pain, but has been worsening diarrhea. Denied dysuria, urgency and frequencies. Denied skin rashes. Otherwise, 14 points organ system review were negative. Like I mentioned past medical history includes CKD, COPD, left hip degenerative joint disease and sepsis. FAMILY HISTORY: Include diabetic, cancer, heart disease and hypertension. SOCIAL HISTORY: Remote history of tobacco abuse disorder. The patient is . Denied alcohol abuse disorder, denied illicit drug abuse. MEDICATIONS: Taking at home include Eliquis 5 mg p.o. b.i.d., Celebrex 200 mg p.o. b.i.d., Advair 250/50 one puff b.i.d., Combivent 1 puff inhaled q.i.d., lisinopril 10 mg p.o. q.a.m., magnesium oxide 1 tab p.o. daily, metoprolol 50 mg p.o. q.a.m., metronidazole 500 mg p.o. t.i.d., K-Phos 1 tab p.o. daily, Zantac 150 mg p.o. at bedtime, Ambien 2.5 mg p.o. at bedtime, Tylenol 1000 mg p.o. q. 8 hours p.r.n. for the pain. ALLERGIES: ALLERGY TO PENICILLIN. PHYSICAL EXAMINATION: VITAL SIGNS: Temperature is 36.4, pulse 72, respiration rate 20, blood pressure was 179/102. Pulse ox was 94% on room air. GENERAL: The patient is white male, awake, alert and orientated, in no acute distress. HEAD: Normocephalic. EYES: Pupils equal, round responds to light. EARS: Ear was normal. NOSE: Normal. NECK: Supple. Thyroid no enlargement. Trachea midline. LUNGS: Decreased breathing sounds. There was mild wheezing, no rhonchi or crackles. HEART: Regular rhythm S1, S2, has no murmur. ABDOMEN: Soft, nontender. Bowel sound was positive. No herniations. EXTREMITIES: No edema, no cyanosis. Full range of motion. No sign of acute trauma. NEUROLOGIC: Cranial nerve II-XII was intact. There was no local deficits. SKIN: Has no rashes, no jaundice, no diaphoresis. X-RAY STUDIES: Chest x-ray like I mentioned in the above, focal infiltration in the left lung base but improved in left middle lung infiltration. WBC 9.3, hemoglobin 12, platelets 245. BUN 10, creatinine 1.1. ASSESSMENT AND PLAN: A 76-year-old with the problems below: 1. Pneumonia. 2. Worsening diarrhea with recent history of Clostridium difficile, possible failed Flagyl treatment for the Clostridium difficile. 3. Dehydration. 4. Hypomagnesemia. 5. Chronic kidney disease in the baseline. 6. History of chronic obstructive pulmonary disease. 7. History of sepsis. PLAN: 1. Worsening diarrhea with confirmed C. diff diarrhea. Has been on Flagyl 7 days, diarrhea condition is getting worse. I feel the patient possibly has worsening C. diff. I upgrade from oral Flagyl to oral vancomycin. 2. For the pneumonia and like I mentioned recent pneumonia in the left middle lobe of the lung, which seems improving; however, in the left base on the lung something new infiltrations. I do not know if new pneumonia or not. The patient has no fever, no chills, no leukocytosis for now. However, if we are thinking about hospital acquired pneumonia from the recent admission we need to have more broader broad-spectrum antibiotic coverage. I will send a sputum culture. Will start Azactam for the antibiotic because he is allergy to penicillin. I will check ESR, CRP and I have infectious disease consultation. If patient's repeat chest x-ray in 2 view has no obvious evidence of new left lower base infiltration, we probably can downgrade antibiotics sooner. 3. Will have speech evaluation. 4. Will continue to watch kidney functions. Will give DuoNeb, continue Advair. For now, I do not want to give any like a steroid for now. GI and DVT prophylaxis is covered. Discussed with patient and family about the care plan, I answered all their questions and for patient has accelerated hypertension, will give hydralazine as needed. SANJANAD
[2017-02-08 15:30] VITALS: BP 171/85; PULSE 75; TEMP 36.6; O2SAT 95; Ht 177.8 cm; Wt 81.0 kg
--- NOTE | 2017-02-08 15:54 | Progress Note ---
Progress Note Date of Service February 08, 2017. Progress Note ID Consult Dictated #[id number] A/P: 1. CAP 2. c. diff -Agree with abx, change to vanco -nausea likely secondary to barfield -see consult for details -thank you
[2017-02-08] MEDS: ALBUT/IPRATROP 3MG/0.5MG NEB 3 ML VIAL INH SCH ×2 (16:00→19:25)
[2017-02-08 16:18] VITALS: BP 171/85; PULSE 78; TEMP 36.6; O2SAT 95
--- NOTE | 2017-02-08 17:06 | DIAGNOSTIC IMAGING REPORT ---
CHEST 2 VIEWS ROUTINE HISTORY: PNEUMONIA, P/A and lateral COMPARISON: Chest 02/08/2017. FINDINGS: The right lung is clear. The heart is normal in size. Improved aeration within the left basilar airspace opacity. Mild diffuse interstitial thickening is again noted. Trace left pleural effusion. No pneumothorax. Suspect a few small nodular densities within the upper lobes. There is also consolidation within the left upper lobe posteriorly best seen on the lateral view. This is similar to the prior study. IMPRESSION: 1. Improved aeration within the left lung base. 2. Left upper lobe posterior consolidation persists. 3. A few tiny nodular densities suggested within the upper lobes. 4. These findings are consistent with a pneumonia. Recommend one month chest x-ray follow-up to ensure complete resolution. 4. Trace left pleural effusion, unchanged. Electronically signed by: Mt Burroughs M.D. 02/08/2017 5:05 PM Dictated Date/Time: 02/08/2017 5:02 PM
[2017-02-08] MEDS: AZTREONAM IV 1,000 MG in DEXTROSE 5% 100ML 100 ML IV SCH (17:07)
[2017-02-08] MEDS: RASPBERRY SYRUP 5 ML UDP PO SCH ×2 (17:12→20:39)
[2017-02-08] MEDS: VANCOMYCIN HCL 125 MG/2.5ML SOLN PO SCH ×2 (17:12→20:39)
[2017-02-08] MEDS: ACETAMINOPHEN 325 MG TAB PO PRN ×2 (17:13→21:33)
[2017-02-08 18:10] VITALS: BP 147/80; PULSE 78; O2SAT 95
--- NOTE | 2017-02-08 18:18 | INFECT. DISEASE CONSULTATION ---
DATE OF CONSULTATION: 02/08/2017 REQUESTING PHYSICIAN: Nghia Huddleston MD HISTORY OF PRESENT ILLNESS: This is a 76-year-old gentleman who was just discharged from the hospital on the after he was diagnosed with pneumonia and C. diff. He was treated with Levaquin and sent home on Flagyl. He continued to have diarrhea at home and also had some nausea and dry heaves. He was readmitted to the hospital today. A chest x-ray showed a left basilar infiltrate, but overall his chest x-ray was improved. He was placed empirically on aztreonam. He was also transitioned to oral vancomycin, which he has not started taking yet. He states that his breathing is about the same. He denies any productive cough or hemoptysis. He denies any chest pain. He denies any shortness of breath or dyspnea on exertion. He denies any fevers or chills. He still has diarrhea. He denies any bleeding. He denies any vomiting but does have nausea and dry heaves at home. Additionally, his appetite is poor. He has no urinary symptoms. All remaining review of systems are reviewed and are negative. His is at his bedside during my examination. PAST MEDICAL HISTORY: Significant for COPD and recent diagnoses of pneumonia and C. diff. FAMILY HISTORY: Noncontributory. SOCIAL HISTORY: Significant for history of tobacco use. He denies any alcohol or drug use. ALLERGIES: HE HAS ALLERGIES TO PENICILLIN. CURRENT MEDICATIONS: Include lisinopril, Toprol-XL, potassium, magnesium, Zantac, Celebrex, Advair, Eliquis, albuterol, oral vancomycin, hydralazine, Tylenol, Maalox, milk of magnesia, MiraLax, Ambien, Zofran and aztreonam. PHYSICAL EXAMINATION: VITAL SIGNS: He is afebrile, pulse 80, respiratory rate is 20, blood pressure is 167/89, and oxygen saturation is 96% on room air. GENERAL: He is awake, alert and oriented x3. He is in no acute distress. HEENT: Mucous membranes are moist. Extraocular muscles are intact. HEART: Regular. LUNGS: Clear bilaterally. ABDOMEN: Minimally distended and nontender. There is no edema. SKIN: Without rash. LABORATORY STUDIES: CBC reveals a white blood cell count of 9.3, hemoglobin 12.7, platelets are 245. Sed rate is elevated at 63. Chemistry panel reveals a sodium of 141, potassium 3.6, chloride 105, bicarbonate 26, BUN 10, creatinine 1.1, glucose is 106. LFTs are within normal limits. CRP is 7.4. Urinalysis is unremarkable. There is no micro to review. Chest x-ray done in the Emergency Room shows improved infiltrative process in the left lung. Right lung is clear and a focal infiltrate at the left base. ASSESSMENT AND PLAN: 1. Pneumonia. 2. C. diff colitis. He can be continued on aztreonam. If he is to be discharged on antibiotics, he could be transitioned back to Levaquin orally. I do agree with the transition Flagyl to oral vancomycin and this should be continued for 21 days. I suspect that a lot of his gastrointestinal symptoms are related to Flagyl rather than underlying Clostridium difficile. Thank you for this consultation.
[2017-02-08 19:25] VITALS: PULSE 77; O2SAT 91
[2017-02-08] MEDS: FLUTICASONE/SALMETEROL 250/50 (ADVAIR) 14 PUFF/1 INHALER INH SCH (20:38)
[2017-02-08] MEDS: APIXABAN 2.5 MG TAB PO SCH (20:40)
[2017-02-08] MEDS: RANITIDINE HCL 150 MG TAB PO SCH (20:41)
[2017-02-08] MEDS: CeleBREX 200 MG CAP PO SCH (20:42)
[2017-02-08 22:36] VITALS: BP 153/93; PULSE 77
[2017-02-08 23:45] VITALS: BP 146/74; PULSE 75; TEMP 36.8; O2SAT 94
[2017-02-09] MEDS: AZTREONAM IV 1,000 MG in DEXTROSE 5% 100ML 100 ML IV SCH ×4 (00:25→23:50)
[2017-02-09 07:05] VITALS: BP 170/79; PULSE 80; TEMP 36.9; O2SAT 90
[2017-02-09] MEDS: FLUTICASONE/SALMETEROL 250/50 (ADVAIR) 14 PUFF/1 INHALER INH SCH ×2 (07:36→20:29)
[2017-02-09] MEDS: CeleBREX 200 MG CAP PO SCH ×2 (07:37→20:30)
[2017-02-09] MEDS: METOPROLOL SUCC 50MG EXT REL TAB PO SCH (07:38)
[2017-02-09] MEDS: POT PHOSPHATE MONOBASIC W/ SOD TAB PO SCH (07:38)
[2017-02-09] MEDS: VANCOMYCIN HCL 125 MG/2.5ML SOLN PO SCH ×4 (07:39→20:29)
[2017-02-09] MEDS: APIXABAN 2.5 MG TAB PO SCH ×2 (07:39→20:31)
[2017-02-09] MEDS: RASPBERRY SYRUP 5 ML UDP PO SCH ×4 (07:40→20:29)
[2017-02-09] MEDS ORDERED: MAGNESIUM OXIDE 400 MG TAB PO SCH (08:00)
[2017-02-09] MEDS ORDERED: LISINOPRIL 10 MG TAB PO SCH (08:00)
[2017-02-09 08:17] VITALS: PULSE 77; O2SAT 94
[2017-02-09] MEDS: ALBUT/IPRATROP 3MG/0.5MG NEB 3 ML VIAL INH SCH ×4 (08:17→19:28)
--- NOTE | 2017-02-09 09:09 | Hospitalist Progress Note ---
Hospitalist Progress Note Date of Service February 09, 2017. (Omaira Brand PA-C) Subjective Pt evaluation today including: conversation w/ patient, conversation w/ family , physical exam, chart review, lab review, review of studies The patient was seen and examined this morning. Patient reports feeling well. His and son are present at bedside. Extremity questions. Patient notes that his bowels 4 times being admitted,. He denies any abdominal pain. He does report bloating and some nausea without vomiting. He feels much better than yesterday. He admits to a cough which is dry, nonproductive, ongoing since his last admission. He did complete a seven-day course of Levaquin at that time. He denies fevers, chills, sweats, pain, shortness of breath, dyspnea with exertion. Additional Comments: Constitutional: No fever, chills, sweats, fatigue or weakness Eyes: No diplopia, no changes in vision ENT: No sore throat, tinnitus, or trouble swallowing Respiratory: No shortness of breath, No dyspnea at rest or on exertion, + cough without sputum production Cardiovascular: No chest pain, palpitations, or flutter Abdomen: No pain, + diarrhea, dark stools, +nausea, No vomiting Musculoskeletal: No calf pain, No joint pain, + left knee swelling, no other swelling Genitourinary : No dysuria or urinary frequency, No hematuria Neurologic: No numbness/tingling, no difficulty with ambulation, no sensory or motor deficits Psychiatric: No depression or anxiety symptoms Endocrine: No fatigue, No weight changes Integumentary: + erythematous irregular border lesion under the R nostril and on upper border of lip. (Omaira Brand PA-C) Objective Vital Signs Date Time Temp Pulse Resp B/P Pulse Ox O2 Delivery O2 Flow Rate FiO2 02/09/17 08:17 77 16 94 Room Air 02/09/17 07:05 36.9 80 20 170/79 90 Room Air 02/09/17 00:55 Room Air 02/08/17 23:45 36.8 75 18 146/74 94 Room Air 02/08/17 22:36 77 153/93 02/08/17 19:25 77 16 91 Room Air 02/08/17 18:10 78 18 147/80 95 02/08/17 16:18 36.6 78 20 171/85 95 Room Air 02/08/17 15:30 36.6 75 18 171/85 95 Room Air 02/08/17 15:30 75 18 171/85 95 Room Air 02/08/17 14:41 80 20 167/89 96 Room Air 02/08/17 14:27 76 21 95 02/08/17 13:57 78 18 95 02/08/17 13:27 79 25 96 02/08/17 13:25 152/95 02/08/17 12:57 80 19 95 02/08/17 12:27 84 19 97 02/08/17 12:15 82 20 171/91 95 Room Air 02/08/17 12:14 171/91 02/08/17 11:57 83 22 96 02/08/17 11:54 161/91 02/08/17 11:35 161/91 02/08/17 11:27 78 25 95 02/08/17 11:03 72 20 161/91 94 Room Air 02/08/17 10:59 73 02/08/17 10:56 161/91 02/08/17 10:32 36.4 78 20 179/102 92 Room Air (Omaira Brand, PA-C) Physical Exam Notes: General: awake, alert, no apparent distress, sitting up in bedside chair Head: Normocephalic, atraumatic ENT: PERRL, EOMI, no pharyngeal exudate, mucous membranes moist Chest: + Diminished breath sounds throughout without adventitious breath, on room air Cardiac: Regular rate and rhythm, no murmur, no JVD, normal peripheral pulses, good capillary refill Abdominal: NABS x 4 quadrants, soft, nontender to palpation, no rebound, guarding or tenderness Extremities: Normal inspection, no peripheral edema or erythema, + edema of the left knee with fluctuance, no surrounding erythema or edema, nontender with passive or active ROM, +crepitus, calfs nontender to palpation Psych: Normal mood and affect Neuro: AAO x 3, strength intact bilaterally and related 5/5, no motor deficits, speech is clear, no peripheral sensory deficits Integumentary: Erythematous irregular border lesion on right nare and upper lip , + yellow honey crusting. (FilipOmaira wilson PA-C) Laboratory Results Last 24 Hours Test 02/08/17 11:00 02/08/17 11:05 White Blood Count 9.36 K/uL Red Blood Count 4.12 M/uL Hemoglobin 12.7 g/dL Hematocrit 38.0 % Mean Corpuscular Volume 92.2 fL Mean Corpuscular Hemoglobin 30.8 pg Mean Corpuscular Hemoglobin Concent 33.4 g/dl Platelet Count 245 K/uL Mean Platelet Volume 9.0 fL Neutrophils (%) (Auto) 76.0 % Lymphocytes (%) (Auto) 12.0 % Monocytes (%) (Auto) 8.8 % Eosinophils (%) (Auto) 2.0 % Basophils (%) (Auto) 0.3 % Neutrophils # (Auto) 7.12 K/uL Lymphocytes # (Auto) 1.12 K/uL Monocytes # (Auto) 0.82 K/uL Eosinophils # (Auto) 0.19 K/uL Basophils # (Auto) 0.03 K/uL RDW Standard Deviation 49.2 fL RDW Coefficient of Variation 14.5 % Immature Granulocyte % (Auto) 0.9 % Immature Granulocyte # (Auto) 0.08 K/uL Erythrocyte Sedimentation Rate 63 mm/hr Prothrombin Time 13.3 SECONDS Prothromb Time International Ratio 1.2 Activated Partial Thromboplast Time 34.3 SECONDS Partial Thromboplastin Ratio 1.3 Sodium Level 141 mmol/L Potassium Level 3.6 mmol/L Chloride Level 105 mmol/L Carbon Dioxide Level 26 mmol/L Anion Gap 10.0 mmol/L Blood Urea Nitrogen 10 mg/dl Creatinine 1.10 mg/dl Est Creatinine Clear Calc Drug Dose 57.1 ml/min Estimated GFR () 74.1 Estimated GFR (Non- 64.0 BUN/Creatinine Ratio 9.3 Random Glucose 106 mg/dl Calcium Level 8.5 mg/dl Phosphorus Level 2.1 mg/dl Magnesium Level 1.6 mg/dl Total Bilirubin 0.3 mg/dl Aspartate Amino Transf (AST/SGOT) 28 U/L Alanine Aminotransferase (ALT/SGPT) 19 U/L Alkaline Phosphatase 67 U/L Troponin I < 0.015 ng/ml C-Reactive Protein 7.45 mg/dl Total Protein 6.4 gm/dl Albumin 2.9 gm/dl Globulin 3.5 gm/dl Albumin/Globulin Ratio 0.8 Urine Color YELLOW Urine Appearance CLEAR Urine pH 6.5 Urine Specific [place] 1.016 Urine Protein NEG Urine Glucose (UA) NEG Urine Ketones TRACE Urine Occult Blood NEG Urine Nitrite NEG Urine Bilirubin NEG Urine Urobilinogen NEG Urine Leukocyte Esterase TRACE Urine WBC (Auto) 1-5 /hpf Urine RBC (Auto) 0-4 /hpf Urine Hyaline Casts (Auto) 1-5 /lpf Urine Epithelial Cells (Auto) 10-20 /lpf Urine Bacteria (Auto) NEG (Omaira Brand, BHARAT) Assessment and Plan 76yo M with PMHx of pneumonia, afib, COPD, cdiff colitis, recently discharge from here on 02/05 and returned with worsening diarrhea C. Diff colitis: - On flagyl x 7days, discontinued and placed on oral Vanc. - Rehydrate with IVFs and encourage oral intake. Pt tolerated clear liquids this morning, will advance diet for lunch and see if he tolerates. - Pt notes darkened stools, will check hemmocult today.- Hgb has been stable at 12.2 Hypophosphatemia and hypomagnemesia secondary to diarrhea - Phos= 2.1, and Mag= 1.6 from yesterday, improved this morning Hypokalemia - Mild at 3.4, ordered 20 meq PO once. Pneumonia LOBO? Hx COPD not in acute exacerbation - Started on aztreonam this admission for concern of HCAP with recent admission - afebrile, no leukocytosis - ID was consulted on admission - pt completed a 7 day course of levaquin during last admission. He was just dischared on 02/05 for this. - CXR reviewed- in left upper lobe with known small left pleural effusion, aeration improving-- will need repeat CXR as oupt in 4 weeks. - Will continue supportive therapy with advair, duonebs QID and Q2H prn, incentive spirometry, flutter therapy - On room air, O2 sats=91-94% Lesions on R nare/ upper lip border - This is a red irregular border around a yellow crusting lesion, clustered under the R nare and also multiple vesicles on the upper lip. This appears to be impetigo - will order bacitracin ointment for this. Possible herpes zoster with location and pt has history of this- hold off on antiviral regimen for now. CKD stage IV - baseline appears to be 1.4-1.6, recent admission it was slightly elevated - rechecking labs Atrial Fibrillation - Rate controlled on metoprolol succinated 50 mg QAM, Lisinopril 10 mg QAM - Tripp Eliquis - INR 1.2 on admission DVT ppx: Teds, Scds, eliquis CODE STATUS: FULL CODE Disposition: From home, discharge when medically stable, likely tomorrow (Omaira Brand PA-C) Reviewed: Pt Seen/Exam by Me (Tiffany Duran MD) History Physician Docent Coordinator Supervision Note: I interviewed and examined the patient. Discussed with KAYLIN Brand and agree with findings and plan as documented in the note. Any exceptions or clarifications are listed here: Patient feeling well, less diarrhea already since starting by mouth Vanco. He has a mild baseline cough but feels overall much improved since his pneumonia here last week. Was started on aztreonam here in case pneumonia was still present purely based on radiographic evidence, however he does not have any signs of pneumonia clinically and certainly does not have sepsis. His stools have been black and he was started on Eliquis last week for new onset atrial fibrillation. Vitals reviewed No acute distress Lips and right narrow with several crusted erythematous lesions that appear herpetic in nature Regular rate and rhythm, no murmurs gallops rubs Clear to auscultation bilaterally except for mild crackles at the left base, breathing unlabored Abdomen positive bowel sounds soft nontender nondistended Extremities no edema 76-year-old male with a history of paroxysmal atrial fibrillation, recent admission for pneumonia and C. difficile colitis as well as hypertension. He actually came to the ER yesterday due to his elevated blood pressure after his lisinopril was decreased last admission for hypotension. In the ER, he had complaints of persistent diarrhea and is considered to have failed oral metronidazole for his C. difficile colitis. -Continue oral vancomycin and will do prolonged course over several weeks -Consider discontinuing aztreonam for pneumonia but will continue for now -We will treat for herpes stomatitis with a 24-hour course of valacyclovir -Hemoccult stool for black stools, follow CBC Documented By: Tiffany Duran (Tiffany Duran MD)
[2017-02-09 10:40] LABS: BASO % 0.2 %; BASO ABS # 0.02 K/uL (0-0.2); COMPLETE YES; EOS % 2.4 %; HEMATOCRIT 37.3 % (42-52); IG% 0.9 %; LYMPH % 10.9 %; LYMPH ABS # 0.88 K/uL (1.2-3.4); MEAN CELL VOLUME 92.3 fL (80-100); MEAN CORPUSCULAR HEMOGLOBIN 30.2 pg (25-34); MEAN CORPUSCULAR HGB CONC 32.7 g/dl (32-36); MEAN PLATELET VOLUME 9.3 fL (7.4-10.4); NEUT % 79.6 %; PLATELET COUNT 260 K/uL (130-400); RED BLOOD COUNT 4.04 M/uL (4.7-6.1); WHITE BLOOD COUNT 8.05 K/uL (4.8-10.8)
[2017-02-09 11:03] LABS: BUN/CREATININE RATIO 6.7 (10-20); CALCIUM 8.1 mg/dl (8.5-10.1); CREATININE 1.2 mg/dl (0.60-1.40); MAGNESIUM 1.9 mg/dl (1.8-2.4); POTASSIUM 3.4 mmol/L (3.5-5.1)
[2017-02-09 11:40] VITALS: PULSE 76; O2SAT 92
[2017-02-09] MEDS ORDERED: NURSING VERBAL MED ORDER ONE (12:45)
[2017-02-09] MEDS ORDERED: POTASSIUM CHLORIDE 20 MEQ TABCR PO ONE (13:00)
[2017-02-09 15:00] VITALS: BP 137/75; PULSE 73; TEMP 36.8; O2SAT 96
[2017-02-09 15:29] VITALS: PULSE 76; O2SAT 93
[2017-02-09] MEDS ORDERED: LISINOPRIL 10 MG TAB PO ONE (17:15)
[2017-02-09] MEDS ORDERED: BACITRACIN OINT 15 GM TUBE EXT ONE (17:30)
[2017-02-09] MEDS ORDERED: POTASSIUM CHLORIDE 10 MEQ TABCR PO STA (17:34)
[2017-02-09 19:28] VITALS: PULSE 80; O2SAT 95
[2017-02-09] MEDS ORDERED: BACITRACIN OINT 15 GM TUBE EXT SCH (20:00)
[2017-02-09] MEDS: BACITRACIN OINT 15 GM TUBE EXT SCH (20:29)
[2017-02-09] MEDS: RANITIDINE HCL 150 MG TAB PO SCH (20:31)
[2017-02-09] MEDS: CHOLESTYRAMINE LIGHT 4 GM PKT PO SCH (20:34)
[2017-02-10] VITALS (8 sets, daily range): BP systolic 98–151; BP diastolic 65–81; PULSE 72–87; TEMP 36.5–36.9; O2SAT 91–95
[2017-02-10 06:16] LABS: BASO % 0.5 %; BASO ABS # 0.04 K/uL (0-0.2); COMPLETE YES; EOS % 3.9 %; HEMATOCRIT 36.1 % (42-52); IG% 0.7 %; LYMPH % 16.6 %; MEAN CELL VOLUME 92.6 fL (80-100); MEAN CORPUSCULAR HEMOGLOBIN 29.2 pg (25-34); MEAN CORPUSCULAR HGB CONC 31.6 g/dl (32-36); MEAN PLATELET VOLUME 9.2 fL (7.4-10.4); MONO % 9.4 %; NEUT % 68.9 %; PLATELET COUNT 286 K/uL (130-400); WHITE BLOOD COUNT 8.44 K/uL (4.8-10.8)
[2017-02-10 06:58] LABS: BUN/CREATININE RATIO 6.7 (10-20); CREATININE 1.1 mg/dl (0.60-1.40); MAGNESIUM 1.9 mg/dl (1.8-2.4); PHOSPHORUS 2.6 mg/dl (2.5-4.9); POTASSIUM 3.6 mmol/L (3.5-5.1)
[2017-02-10] MEDS: ALBUT/IPRATROP 3MG/0.5MG NEB 3 ML VIAL INH SCH ×4 (07:26→20:00)
[2017-02-10] MEDS: BACITRACIN OINT 15 GM TUBE EXT SCH ×3 (07:50→20:25)
[2017-02-10] MEDS: AZTREONAM IV 1,000 MG in DEXTROSE 5% 100ML 100 ML IV SCH (07:50)
[2017-02-10] MEDS: RASPBERRY SYRUP 5 ML UDP PO SCH ×4 (07:51→20:43)
[2017-02-10] MEDS: VANCOMYCIN HCL 125 MG/2.5ML SOLN PO SCH ×4 (07:51→20:43)
[2017-02-10] MEDS: FLUTICASONE/SALMETEROL 250/50 (ADVAIR) 14 PUFF/1 INHALER INH SCH ×2 (07:52→20:23)
[2017-02-10] MEDS: APIXABAN 2.5 MG TAB PO SCH (07:52)
[2017-02-10] MEDS: LISINOPRIL 10 MG TAB PO SCH (07:53)
[2017-02-10] MEDS: METOPROLOL SUCC 50MG EXT REL TAB PO SCH (07:54)
[2017-02-10] MEDS: POT PHOSPHATE MONOBASIC W/ SOD TAB PO SCH (07:54)
[2017-02-10] MEDS: CeleBREX 200 MG CAP PO SCH ×2 (07:55→20:25)
--- NOTE | 2017-02-10 08:42 | Hospitalist Progress Note ---
Hospitalist Progress Note Date of Service February 10, 2017. (Omaira Brand PA-C) Subjective Pt evaluation today including: conversation w/ patient, conversation w/ family , physical exam, chart review, lab review, review of studies Pain: none Voiding: no voiding problems The patient was seen and examined this morning. His is present at bedside . Patient reports feeling well today. He has had 2 bowel movements this morning , the secondary was very loose. Denies having any abdominal pain, nausea, vomiting. Patient informed that he had Hemoccult-positive stool this morning and GI consultation would be made. He has already seen Dr. Martines this morning. Discussion was held regarding planned EGD tomorrow morning. Additional Comments: Constitutional: No fever, sweats or chills Eyes: No diplopia, no worsening or blurred vision ENT: normal hearing, no trouble swallowing Respiratory: No cough, sputum, dyspnea at rest or on exertion Cardiovascular: No chest pain, tightness or palpitations Abdomen: No pain, nausea, vomiting. + diarrhea Musculoskeletal: No joint pain, calf pain, swelling Neurologic: No weakness, numbness/tingling, or balance problems Psychiatric: No anxiety or depression Skin: No rash or itch (Omaira Brand PA-C) Objective Vital Signs Date Time Temp Pulse Resp B/P Pulse Ox O2 Delivery O2 Flow Rate FiO2 02/10/17 07:37 36.8 76 20 151/81 91 Room Air 02/10/17 07:26 72 18 95 Room Air 02/10/17 01:01 36.5 82 20 118/65 94 Room Air 02/10/17 00:05 Room Air 02/09/17 22:00 Room Air 02/09/17 19:28 80 18 95 Room Air 02/09/17 16:00 Room Air 02/09/17 15:29 76 16 93 Room Air 02/09/17 15:00 36.8 73 18 137/75 96 Room Air 02/09/17 11:40 76 16 92 Room Air (Omaira Brand PA-C) Physical Exam Notes: General: awake, alert, no apparent distress, sitting up in bed Head: Normocephalic, atraumatic ENT: PERRL, EOMI, no pharyngeal exudate, mucous membranes moist Chest: + Diminished breath sounds throughout without adventitious breath, on room air Cardiac: Regular rate and rhythm, no murmur, no JVD, normal peripheral pulses Abdominal: NABS x 4 quadrants, soft, nontender to palpation, no rebound, guarding or tenderness Extremities: Normal inspection, no peripheral edema or erythema, + edema of the left knee with fluctuance, no surrounding erythema or edema, nontender with passive or active ROM, +crepitus, calfs nontender to palpation Psych: Normal mood and affect Neuro: AAO x 3, strength intact bilaterally and related 5/5, no motor deficits, speech is clear, no peripheral sensory deficits Integumentary: Erythematous irregular border lesion on right nare and upper lip , + yellow honey crusting, appears improved today. (Omaira Brand, BHARAT) Laboratory Results Last 24 Hours Test 02/09/17 10:23 02/10/17 05:05 02/10/17 05:30 White Blood Count 8.05 K/uL 8.44 K/uL Red Blood Count 4.04 M/uL 3.90 M/uL Hemoglobin 12.2 g/dL 11.4 g/dL Hematocrit 37.3 % 36.1 % Mean Corpuscular Volume 92.3 fL 92.6 fL Mean Corpuscular Hemoglobin 30.2 pg 29.2 pg Mean Corpuscular Hemoglobin Concent 32.7 g/dl 31.6 g/dl Platelet Count 260 K/uL 286 K/uL Mean Platelet Volume 9.3 fL 9.2 fL Neutrophils (%) (Auto) 79.6 % 68.9 % Lymphocytes (%) (Auto) 10.9 % 16.6 % Monocytes (%) (Auto) 6.0 % 9.4 % Eosinophils (%) (Auto) 2.4 % 3.9 % Basophils (%) (Auto) 0.2 % 0.5 % Neutrophils # (Auto) 6.41 K/uL 5.82 K/uL Lymphocytes # (Auto) 0.88 K/uL 1.40 K/uL Monocytes # (Auto) 0.48 K/uL 0.79 K/uL Eosinophils # (Auto) 0.19 K/uL 0.33 K/uL Basophils # (Auto) 0.02 K/uL 0.04 K/uL RDW Standard Deviation 49.8 fL 50.1 fL RDW Coefficient of Variation 14.6 % 14.8 % Immature Granulocyte % (Auto) 0.9 % 0.7 % Immature Granulocyte # (Auto) 0.07 K/uL 0.06 K/uL Sodium Level 143 mmol/L 143 mmol/L Potassium Level 3.4 mmol/L 3.6 mmol/L Chloride Level 105 mmol/L 110 mmol/L Carbon Dioxide Level 30 mmol/L 25 mmol/L Anion Gap 8.0 mmol/L 8.0 mmol/L Blood Urea Nitrogen 8 mg/dl 7 mg/dl Creatinine 1.20 mg/dl 1.10 mg/dl Est Creatinine Clear Calc Drug Dose 52.4 ml/min 57.1 ml/min Estimated GFR () 66.7 74.1 Estimated GFR (Non- 57.6 64.0 BUN/Creatinine Ratio 6.7 6.7 Random Glucose 139 mg/dl 100 mg/dl Calcium Level 8.1 mg/dl 8.0 mg/dl Magnesium Level 1.9 mg/dl 1.9 mg/dl Stool Occult Blood POSITIVE Phosphorus Level 2.6 mg/dl (Omaira Brand, BHARAT) Assessment and Plan 76yo M with PMHx of pneumonia, afib, COPD, cdiff colitis, recently discharge from here on 02/05 and returned with worsening diarrhea C. Diff colitis: - On flagyl x 7days, discontinued and placed on oral Vanc (day #3) -will need a taper of this as follows: QID x 14 d, TID x 5d, BID x 5d, then daily x 5 days and stop. - Rehydrate with IVFs and encourage oral intake. Pt tolerated diet GI bleed - Pt with heme positive stools, had received Eliquis this moring prior to results but will plan to hold this medication for now. - Hgb is 11.4, down from 12.2 without IV hydration so I cannot say this drop is dilutional. - The patient does have a history of diverticulosis. Colonoscopy many years ago but cannot remember the physician who did the exam., Per outpatient records patient has not had one with any of the teams at [facility]. - GI consulted- plan for EGD tomorrow morning, nothing by mouth after midnight. After completion of vancomycin orally for c diff and clearance of infection the pt can have an outpatient colonoscopy. - Will start on pantoprazole 40 mg BID Atrial Fibrillation - Rate controlled on metoprolol succinated 50 mg QAM, Lisinopril 10 mg QAM - Hold Eliquis for heme + stools as above - consider cardiology consultation on Saturday. - INR 1.2 on admission Pneumonia LOBO Hx COPD not in acute exacerbation - Started on aztreonam this admission for concern of HCAP with recent admission - afebrile, no leukocytosis - will stop IV abx today. ID was consulted on admission - pt completed a 7 day course of levaquin during last admission. The patient has an outpatient appointment scheduled with Dr. Rios within the next month. He has previously seen Dr. Ibarra. - CXR reviewed- in left upper lobe with known small left pleural effusion, aeration improving-- will need repeat CXR as oupt in 4 weeks. - Will continue supportive therapy with advair, duonebs QID and Q2H prn, incentive spirometry, flutter therapy - On room air, O2 sats=91-94% Lesions on R nare/ upper lip border - This is a red irregular border around a yellow crusting lesion, clustered under the R nare and also multiple vesicles on the upper lip. This appears to be impetigo - will order bacitracin ointment for this. Possible herpes zoster with location and pt has history of this- will cover with 1x dose of valtrex. - Lesions appears to be improving. Hypophosphatemia and hypomagnemesia secondary to diarrhea - Phos= 2.1, and Mag= 1.9, resolved Hypokalemia - Resolved with oral replacement - 3.6 today. CKD stage IV - baseline appears to be 1.4-1.6, recent admission it was slightly elevated - rechecking labs DVT ppx: Teds, Scds, eliquis CODE STATUS: FULL CODE Disposition: From home, discharge when medically stable, EGD tomorrow. Family updated at bedside. (Omaira Brand PA-C) Reviewed: Pt Seen/Exam by Me (Tiffany Duran MD) History Physician Balance Bridge Inspector Supervision Note: I interviewed and examined the patient. Discussed with KAYLIN Brand and agree with findings and plan as documented in the note. Any exceptions or clarifications are listed here: Patient continues to feel very well, hemoglobin only with slight drop this morning, he is Hemoccult positive and Eliquis was held. Plans for EGD tomorrow. He does have an elevated ESR and CRP and has diffuse arthritis complaints. Discussed with GI and he is concerned about possible inflammatory bowel disease given his chronic diarrhea and arthritic complaints. Vitals reviewed No acute distress Lips and right narrow with several crusted erythematous lesions that appear herpetic in nature Regular rate and rhythm, no murmurs gallops rubs Clear to auscultation bilaterally except for mild crackles at the left base, breathing unlabored Abdomen positive bowel sounds soft nontender nondistended Extremities no edema 76-year-old male with a history of paroxysmal atrial fibrillation, recent admission for pneumonia and C. difficile colitis as well as hypertension. He actually came to the ER due to his elevated blood pressure after his lisinopril was decreased last admission for hypotension. In the ER, he had complaints of persistent diarrhea and is considered to have failed oral metronidazole for his C. difficile colitis. -Continue oral vancomycin and will do prolonged course over several weeks as above -No evidence of ongoing pneumonia-we will DC aztreonam for pneumonia and repeat chest x-ray and have follow-up with pulmonology in several weeks -Completed treatment for herpes stomatitis with a 24-hour course of valacyclovir -Appreciate GI consultation-EGD for tomorrow for Hemoccult positive stool, continue to hold Eliquis, and plan for colonoscopy as an outpatient in approximately one month-there is concern for possible inflammatory bowel disease Documented By: Tiffany Duran (Tiffany Duran MD)
[2017-02-10] MEDS: PANTOprazole SOD 40 MG TAB PO SCH ×2 (09:37→20:42)
[2017-02-10] MEDS: CHOLESTYRAMINE LIGHT 4 GM PKT PO SCH ×2 (11:12→20:49)
[2017-02-10] MEDS: RANITIDINE HCL 150 MG TAB PO SCH (20:49)
--- NOTE | 2017-02-11 05:29 | GASTROINTESTINAL CONSULTATION ---
DATE OF CONSULTATION: 02/10/2017 CHIEF COMPLAINT: Dark stools, C. diff infection and pneumonia. 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 He was re-admitted for return of diarrhea along with worsening pattern as well as increased shortness of breath. The patient was discharged on February 05 for C. diff colitis and pneumonia in the left lobe field and was hypotensive. He was treated with Levaquin for 7 days. During the previous admission, he was C. diff positive and given Flagyl for a 10-day course of therapy, but his symptoms persisted and got worse. The patient also has a nonproductive cough. On imaging study, the chest x-ray shows perhaps light improvement of the lingular lesion with a possible new focal base infiltration. Regarding his GI symptoms the patient has had a chronic history of diarrhea that can be nocturnal, is nonbloody and required the use of [id number] antidiarrheals (Equate brand of Imodium). He would have nocturnal symptoms, but denies weight loss. There was no abdominal pain, nausea or vomiting and these symptoms seemed to go back many years. By his recollection, he cannot recall a recent colonoscopy within the last 5 years and may have had some preliminary testing for the diarrhea many years ago, although nothing recently. This was nonbloody. There was no nausea, vomiting or abdominal pain associated with these symptoms. He has been on Celebrex for many years for diffuse arthritis. He was on antibiotics for this lung infection recently and the C. diff identification seemed to occur during the antibiotic usage. The patient was found to have heme positive stools during his evaluation over the last 24 hours and is on Eliquis, although this medication will be held. There was a description that the patient had dark stools and is heme positive. PAST MEDICAL HISTORY: Includes diffuse problems with degenerative joint disease including bilateral knees which requires left drainage at times. He had a hip replacement in September 2016 on the left side. He does not use [id number] NSAIDs or aspirin products for arthritis. The patient also has a history of COPD and had smoked up until a year and a half ago. He denies use of alcoholic beverages. HOME MEDICATIONS: Include Eliquis, Celebrex, Advair, Combivent, lisinopril, magnesium oxide, Lopressor recently started, Flagyl, potassium supplements, Zantac at bedtime, Ambien and Tylenol. ALLERGIES: HE IS ALLERGIC TO PENICILLINS. 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 He is . REVIEW OF SYSTEMS: Otherwise noncontributory based on a 14-point exam except for as mentioned above. He denies odynophagia, dysphagia, hematemesis, coffee ground emesis, nausea, vomiting, weight loss and his diarrhea is chronic as described above. There is no description by the patient of melena or bright red blood per rectum chronically. PHYSICAL EXAMINATION: GENERAL: Today shows a well-developed male, resting comfortably in bed. He is concerned about the ongoing diarrhea and potential discharge without a firm control of the stool pattern that he is describing. VITAL SIGNS: Today shows a blood pressure of 151/81, room air 91%, heart rate 76, temperature 36.8, he has remained afebrile throughout this hospitalization. The patient is awake, alert and oriented x3. HEENT: Sclerae is anicteric. Conjunctiva moist. Oral mucosa is moist. There is no cervical or supraclavicular adenopathy. I do not appreciate thyromegaly. HEART: Normal. S1, S2 with perhaps an extra beat during prolonged auscultation. There are no rubs or murmurs. LUNGS: Show diminished breath sounds on the left side, with deep inspiration, although I do not appreciate crackles or wheezes at the present time. ABDOMEN: Soft, flat, nontender and nondistended, but with normoactive bowel sounds. I do not appreciate hepatosplenomegaly. There is no rebound or guarding. There are no abdominal bruits. There is no evidence of ascites or shifting dullness. EXTREMITIES: Without clubbing, cyanosis or edema. RECTAL: Deferred at this time. LABORATORY STUDIES: Reviewed from this hospitalization. There is an elevation in the patient's sed rate at 63 and an elevation in CRP at 7.45. It is unclear if this reflects his pneumonia, arthritis, although this seems higher than expected for DJD. His BUN and creatinine are 7 and 1.1 and have been consistently in the normal range during all the labs available since February 08 admission. Potassium is normal at 3.6 today. Calcium is 80. Phosphorus and magnesium are normal. LFTs on the 12th show a normal pattern. Troponin was negative. ALT 19, AST 28 and alkaline phosphatase was 67. Bilirubin of 0.3. INR is slightly elevated at 1.2. MEDICATIONS: Currently in the hospital include; pantoprazole 40 mg p.o. b.i.d., lisinopril, Questran powder twice daily, bacitracin ointment to apply to the nostril, valacyclovir, Lopressor, potassium supplements, ranitidine 150 mg at bedtime, Celebrex, vancomycin orally 125 mg q.i.d., aztreonam, Combivent, hydralazine, Ambien and Zofran. IMAGING STUDIES: Show chest x-rays during this hospitalization of improved aeration within the left lung agosto with upper lobe posterior consolidation persistent and these are features suggestive of his ongoing pneumonia. 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 IMPRESSION: The patient with symptoms of dark-appearing stools, although his hemoglobin has overall been stable since his admission. His admission laboratory was 12.7, but would continue hydration. Yesterday, it was 12.2 and today is 11.4. There is no rise in his BUN to suggest an upper gastrointestinal bleed and his platelet count is stable and satisfactory at 286,000. He is on Eliquis. His stool study did show heme positivity. His hemoglobin historically was 13.6 and during the previous hospitalization here had an admission value of 13.4, but drifted down to 10.0 at the time of his discharge on February 05. Currently, he is at 11.4. I made the following recommendations: Given the patient's long history of Celebrex and mild anemia, I do believe that an upper endoscopy is reasonable. This would also permit for sampling for any abnormalities that would be responsible for his chronic diarrhea. I also believe that a colonoscopy would be prudent as he has not had one for many years by his history. He has a chronic history of diarrhea. He is on Celebrex chronically and has Clostridium difficile, which although was likely related to his recurrent rounds of antibiotics, can also occur de shayan in the setting of inflammatory bowel disease. A chronic inflammatory condition can also be suggested by the markers of inflammation that are elevated during this hospitalization, although these maybe multifactorial. At the present time, would continue his course of vancomycin and would defer to infectious diseases for this. However, it may be advisable to consider a tapering dose of vancomycin upon discharge in order to reduce the chance of recurrence. In addition, Questran powder is reasonable or if this is not well-tolerated orally, use of colestipol tablet 1 gram four times daily may help minimize the diarrhea component. Ultimately, he will require colonoscopy or biopsy to exclude not only an inflammatory bowel disease, but microscopic colitis particularly that he has been on Celebrex for many years. If the patient is to be discharged this can be arranged as an outpatient over the next one to two weeks unless his symptoms change that would reflect earlier examination. If the patient is discharged, we will arrange this as an outpatient. All questions were answered for the patient. If you have any questions, please do not hesitate to contact our service. Thank you for allowing us to participate in this patient's care. SHRADDHA
[2017-02-11 07:21] VITALS: PULSE 75; O2SAT 94
[2017-02-11] MEDS: ALBUT/IPRATROP 3MG/0.5MG NEB 3 ML VIAL INH SCH ×3 (07:21→15:23)
[2017-02-11 07:28] VITALS: BP 134/68; PULSE 66; TEMP 36.7; O2SAT 93
[2017-02-11 07:59] LABS: BASO % 0.3 %; BASO ABS # 0.03 K/uL (0-0.2); COMPLETE YES; EOS % 2.8 %; HEMATOCRIT 34.6 % (42-52); IG% 0.4 %; LYMPH % 11.4 %; LYMPH ABS # 1.12 K/uL (1.2-3.4); MEAN CELL VOLUME 93.5 fL (80-100); MEAN CORPUSCULAR HEMOGLOBIN 30.5 pg (25-34); MEAN CORPUSCULAR HGB CONC 32.7 g/dl (32-36); MEAN PLATELET VOLUME 9.1 fL (7.4-10.4); MONO % 7.9 %; NEUT % 77.2 %; PLATELET COUNT 308 K/uL (130-400); WHITE BLOOD COUNT 9.85 K/uL (4.8-10.8)
[2017-02-11 08:28] LABS: BUN/CREATININE RATIO 9.3 (10-20); CREATININE 1.1 mg/dl (0.60-1.40); MAGNESIUM 1.8 mg/dl (1.8-2.4); PHOSPHORUS 2.6 mg/dl (2.5-4.9)
[2017-02-11 08:47] LABS: CALCIUM 8.2 mg/dl (8.5-10.1)
[2017-02-11] MEDS: CHOLESTYRAMINE LIGHT 4 GM PKT PO SCH (10:00)
[2017-02-11] MEDS: PANTOprazole SOD 40 MG TAB PO SCH (10:26)
[2017-02-11] MEDS: RASPBERRY SYRUP 5 ML UDP PO SCH ×3 (10:26→16:49)
[2017-02-11] MEDS: VANCOMYCIN HCL 125 MG/2.5ML SOLN PO SCH ×3 (10:26→16:46)
[2017-02-11] MEDS: FLUTICASONE/SALMETEROL 250/50 (ADVAIR) 14 PUFF/1 INHALER INH SCH (10:26)
[2017-02-11] MEDS: POT PHOSPHATE MONOBASIC W/ SOD TAB PO SCH (10:26)
[2017-02-11] MEDS: METOPROLOL SUCC 50MG EXT REL TAB PO SCH (10:26)
[2017-02-11] MEDS: LISINOPRIL 10 MG TAB PO SCH (10:27)
[2017-02-11] MEDS: BACITRACIN OINT 15 GM TUBE EXT SCH ×2 (10:27→16:46)
[2017-02-11] MEDS: CeleBREX 200 MG CAP PO SCH (10:27)
[2017-02-11 11:32] VITALS: PULSE 66; O2SAT 93
--- NOTE | 2017-02-11 14:14 | Endo History and Physical ---
History & Physical Date of Service: February 11, 2017. Chief Complaint: melena Referring Physician: Dr Bennett History of Present Illness For EGD Past Medical History Arthritis, Hypertension, COPD Past Surgical History Hx Cardiac Surgery: No Hx Abdominal Surgery: Yes (Appendectomy ) Hx Post-Op Nausea and Vomiting: Yes Hx Cancer Surgery: No Hx Thoracic Surgery: No Hx Orthopedic: Yes (Right NAVARRO - 12/11, L NAVARRO - 10/16) Hx Urinary Tract Surgery: Yes (Prostate Biopsy ) Social History Smoking Status: Former Smoker Hx Substance Use: No Hx Alcohol Use: No Allergies Coded Allergies: Penicillins (Verified Allergy, Unknown, HIVES, 02/11/17) Current Medications Reported Home Medications Medications Dose Route/Sig Max Daily Dose Days Date Category Dose Instructions Ambien (Zolpidem Tartrate) 5 Mg Tab 2.5 Mg PO HS 02/08/17 Reported K-Phos Neutral (Phosphorus) 250 Mg Tab 1 Tab PO DAILY 7 02/05/17 Rx Eliquis (Apixaban) 5 Mg Tab 5 Mg PO BID 90 02/05/17 Rx Metoprolol Succinate ER (Metoprolol Succinate) 50 Mg Tabcr 50 Mg PO QAM 90 02/05/17 Rx Metronidazole 500 Mg Tab 500 Mg PO TID 02/05/17 Rx take one evening dose. Then take three times a day starting 02/06 until finished. Zestril (Lisinopril) 20 Mg Tab 10 Mg PO QAM 14 02/05/17 Rx Tylenol (Acetaminophen) 500 Mg Tab 1,000 Mg PO Q8 PRN 02/02/17 Reported Magnesium (Magnesium Oxide (Mg Supplement) Unknown Strength Tab 1 Tab PO DAILY 02/02/17 Reported CeleBREX (Celecoxib) 200 Mg Cap 200 Mg PO BID 02/02/17 Reported Combivent Respimat (Ipratropium-Albuterol) 1 Aer Aer 1 Puff INH QID 01/15/16 Reported Advair Diskus 250/50 60 Dose (Fluticasone Prop/Salmeterol) 1 Ea Aerp 1 Puff INH BID 01/15/16 Reported Zantac (Ranitidine HCl) 150 Mg Tab 150 Mg PO HS 03/03/14 Reported Vital Signs Weight (Kilograms): 81.000 Height (Feet): 5 Height (Inches): 10.00 Date Time Temp Pulse Resp B/P Pulse Ox O2 Delivery O2 Flow Rate FiO2 02/11/17 13:38 36.9 73 18 140/63 94 Room Air 02/11/17 11:32 66 18 93 Room Air 02/11/17 08:00 Room Air 02/11/17 07:28 36.7 66 18 134/68 93 Room Air 02/11/17 07:21 75 18 94 Room Air 02/11/17 00:35 Room Air 02/10/17 23:47 36.8 83 20 114/66 93 Room Air 02/10/17 20:33 Room Air 02/10/17 17:33 36.8 77 18 125/76 93 Room Air 02/10/17 16:41 36.9 82 16 98/65 95 Room Air 02/10/17 16:00 Room Air 02/10/17 15:40 87 18 92 Room Air Physical Exam General Appearance: WD/WN Respiratory/Chest: Respiratory effort: no dyspnea Cardiovascular: Heart Auscultation: RRR Abdomen: Inspection & Palpation: soft Assessment and Plan Melena for EGD
[2017-02-11] MEDS ORDERED: PROPOFOL IV EMULSION 10 MG/ML 20 ML VIAL IV ONE (14:15)
[2017-02-11] MEDS ORDERED: LIDOCAINE HCL 2% 2 ML VIAL (20MG/ML) ONE (14:15)
--- NOTE | 2017-02-11 14:37 | Discharge Instructions ---
Endoscopy Patient Instructions Date / Procedure(s) Performed February 11, 2017. EGD Allergy Information Coded Allergies: Penicillins (Verified Allergy, Unknown, HIVES, 02/11/17) Discharge Date / Findings February 11, 2017. gastric ulcer Medication Instructions Restart Stopped Medication(s): resume meds Current Inpatient Medications Medications (Trade) Dose Ordered Sig/Petty Route Start Time Stop Time Status Last Admin Dose Admin Acetaminophen (Tylenol Tab) 650 mg Q4H PRN PO 02/08/17 12:00 03/10/17 11:59 02/08/17 21:33 650 MG Al Hydrox/Mg Hydrox/Simethicone (Maalox Max Susp) 15 ml Q4H PRN PO 02/08/17 12:00 03/10/17 11:59 Zolpidem Tartrate (Ambien Tab) 5 mg HSZ PRN PO 02/08/17 12:00 03/10/17 11:59 02/10/17 20:48 5 MG Ondansetron HCl (Zofran Inj) 4 mg Q6H PRN IV 02/08/17 12:00 03/10/17 11:59 Vancomycin HCl (Vancomycin Oral Soln) 125 mg QID PO 02/08/17 17:00 02/18/17 16:59 02/11/17 12:17 125 MG Hydralazine HCl (HydrALAZINE INJ) 20 mg Q8 PRN IV. 02/08/17 12:15 03/10/17 12:14 Celecoxib (CeleBREX CAP) 200 mg BID PO 02/08/17 20:00 03/10/17 20:59 02/11/17 10:27 200 MG Salmeterol Xinafoate/ Fluticasone (Advair Diskus 250/50 Inh) 1 puff BID INH 02/08/17 20:00 03/10/17 20:59 02/11/17 10:26 1 PUFF Metoprolol Succinate (Toprol Xl Tab) 50 mg QAM PO 02/09/17 08:00 03/11/17 08:59 02/11/17 10:26 50 MG Potassium/ Phosphorus/Sodium (Phospha 250 Neutral 155-852-130 Mg) 1 tab DAILY PO 02/09/17 08:00 03/11/17 08:59 02/11/17 10:26 1 TAB Ranitidine HCl (zANTac TAB) 150 mg HS PO 02/08/17 21:00 03/10/17 20:59 02/10/17 20:49 150 MG Apixaban (Eliquis Tab) 5 mg BID PO 02/08/17 20:00 03/10/17 19:59 Future Hold 02/10/17 07:52 5 MG Albuterol/ Ipratropium (Duoneb) 3 ml QIDR INH 02/08/17 16:00 03/10/17 15:59 02/11/17 11:26 3 ML Raspberry (Raspberry Syrup 5ml Cup) 5 ml QID PO 02/08/17 17:00 02/22/17 16:59 02/11/17 12:16 5 ML Lisinopril (Zestril Tab) 20 mg QAM PO 02/10/17 08:00 03/12/17 07:59 02/11/17 10:27 20 MG Bacitracin (Bacitracin Oint) 1 appln TID EXT 02/09/17 20:00 03/11/17 19:59 02/11/17 10:27 1 APPLN Cholestyramine Resin (Questran Powder Light) 4 gm BID@10,22 PO 02/09/17 22:00 03/11/17 21:59 02/10/17 20:49 4 GM Pantoprazole Sodium (Protonix Tab) 40 mg BID PO 02/10/17 08:30 03/12/17 08:29 02/11/17 10:26 40 MG Provider Instructions Activity Restrictions - No exercising or heavy lifting for 24 hours. - Do not drink alcohol the day of the procedure. - Do not drive a car or operate machinery until the day after the procedure. - Do not make any important decisions or sign important papers in 24 hours after the procedure. Following Day: - Return to full activity which may include returning to work/school. Diet Start your diet with liquids and light foods (jello, soup, juice, toast). Then eat your usual diet if not nauseated. Treatment For Common After Affects For mild abdominal pain, bloating, or excessive gas: - Rest - Eat lightly - Lie on right side Follow-Up Information Follow-up with as scheduled Anesthesia Information What You Should Know You have had a procedure that required some medicine to reduce anxiety and discomfort. This treatment is called moderate sedation. After receiving the treatment, you may be sleepy, but you will be able to breathe on your own. The effects of the treatment may last for several hours. Follow these instructions along with Activity/Diet recommendations noted above: * Do NOT do anything where dizziness or clumsiness would be dangerous. * Rest quietly at home today, then you can be up and about tomorrow. * Have a responsible person stay with you the rest of today. * You may have had an I.V. today. If so, you may take the dressing off later today. Recommendations Call your doctor if: * Trouble breathing * Continuous vomiting for more than 24 hours * Temperature above 101 degrees * Severe abdominal pain or bloating * Pain not relieved by pain medicine ordered * There is increased drainage or redness from any incision * A large amount of rectal bleeding greater than 2-3 tablespoons. (If you had a polyp/s removed or have hemorrhoids, a small amount of blood - from the rectum is to be expected.) * You have any unanswered questions or concerns. IN THE EVENT OF A SERIOUS EMERGENCY, GO TO THE NEAREST EMERGENCY ROOM Your discharge instructions were prepared by provider Job Carrillo. Patient Instructions Signature Page Ian George Patient (or Guardian) Signature/Date: I have read and understand the instructions given to me by my caregivers. Caregiver/RN/Doctor Signature/Date: The above-named patient and/or guardian has received patient instructions on this date. + Original Patient Signature Page (only) stays with chart. Please make copy for patient.
--- NOTE | 2017-02-11 14:40 | GI REPORT ---
Procedure Date: 02/11/2017 2:18 PM Procedure: Upper GI endoscopy Indications: Melena Medicines: Propofol total dose 110 mg IV, Lidocaine 40 mg IV Complications: No immediate complications. Estimated Blood Loss: Estimated blood loss: none. Procedure: Pre-Anesthesia Assessment: - Prior to the procedure, a History and Physical was performed, and patient medications, allergies and sensitivities were reviewed. The patient's tolerance of previous anesthesia was reviewed. - The risks and benefits of the procedure and the sedation options and risks were discussed with the patient. All questions were answered and informed consent was obtained. After obtaining informed consent, the endoscope was passed under direct vision. Throughout the procedure, the patient's blood pressure, pulse, and oxygen saturations were monitored continuously. The scope was introduced through the mouth, and advanced to the second part of duodenum. The upper GI endoscopy was accomplished without difficulty. The patient tolerated the procedure well. Findings: The examined esophagus was normal. One non-bleeding cratered gastric ulcer with no stigmata of bleeding was found on the posterior wall of the gastric antrum. The lesion was 5 mm in largest dimension. The examined duodenum was normal. Impression: - Normal esophagus. - Non-bleeding gastric ulcer with no stigmata of bleeding. - Normal examined duodenum. - No specimens collected. Recommendation: - Return patient to [facility] for ongoing care. Job Carrillo M.D. Job Carrillo MD 02/11/2017 2:40:21 PM This report has been signed electronically. Note Initiated On: 02/11/2017 2:18 PM I attest to the content of the Intraoperative Record and orders documented therein, exceptions below
--- NOTE | 2017-02-11 14:55 | Anesthesiology Progress Note ---
Anesthesia Post Op Note Date & Time February 11, 2017 at 14:54 Vital Signs Pain Intensity: 0.0 Vital Signs Past 12 Hours Date Time Temp Pulse Resp B/P Pulse Ox O2 Delivery O2 Flow Rate FiO2 02/11/17 14:42 76 20 107/52 94 Room Air 02/11/17 13:38 36.9 73 18 140/63 94 Room Air 02/11/17 11:32 66 18 93 Room Air 02/11/17 08:00 Room Air 02/11/17 07:28 36.7 66 18 134/68 93 Room Air 02/11/17 07:21 75 18 94 Room Air Notes Mental Status: alert / awake / arousable, participated in evaluation Pt Amnestic to Procedure: Yes Nausea / Vomiting: adequately controlled Pain: adequately controlled Airway Patency, RR, SpO2: stable & adequate BP & HR: stable & adequate Hydration State: stable & adequate Anesthetic Complications: no major complications apparent Pt doing well.
--- NOTE | 2017-02-11 15:11 | PROGRESS NOTE ---
DATE: 02/11/2017 SUBJECTIVE: The patient underwent an EGD today for melena. The patient was found to have a 5 mm deep ulcer on the posterior antral wall of the stomach. There was no bleeding or stigmata of bleeding. The ulcerative base appeared clean but was quite deep. IMPRESSION AND PLAN: The patient has a gastric ulcer. The patient will continue on his acid-reducing medications and resume his previous diet and will get a stool for Helicobacter pylori.
[2017-02-11 15:24] VITALS: PULSE 71; O2SAT 95
[2017-02-11 15:26] VITALS: BP 135/77; PULSE 66; TEMP 36.3; O2SAT 97
[2017-02-11] MEDS ORDERED: PRT40 PO (16:06)
[2017-02-11] MEDS ORDERED: QSTP PO (16:06)
[2017-02-11] MEDS ORDERED: VNCS125 PO (16:06)
--- NOTE | 2017-02-11 16:14 | Discharge Instructions ---
Discharge Instructions Date of Service February 11, 2017. Admission Reason for Admission: Pneumonia, Worsening Diarrhea Discharge Discharge Diagnosis / Problem: C diff colitis Discharge Goals Goal(s): Diagnostic testing, Therapeutic intervention Activity Recommendations Activity Limitations: resume your previous activity . Instructions / Follow-Up Instructions / Follow-Up As you know you were admitted to the hospital for C Diff colitis. You were originally being treated for this infection because of recent antibiotic use and you were on Flagyl. As there was no improvement of symptoms it was recommended that we change you to oral vancomycin. A script will be given to you. The plan is to have a slow taper. 1. For the next 10 days take this medication four times a day 2. On day 11-15 take it three times a day 3. On day 16- 20 take it twice a day 4. Take it daily from day 21-25 - As discussed, as you tape the medication, if you notice worsening of diarrhea please contact your PCP or GI as you may need to increase your vanco dose again - Continue cholestyramine as this will help with the diarrhea. We also noticed that there was some blood in your stool. As there was concern for bleeding in the bowels/ stomach and EGD (scope of the stomach ) was completed in house. There was an ulcer noted but it was NON bleeding. 1. A colonoscopy will be arranged for after your colitis resolves 2. Please do not take Celebrex, discuss continuing this medication with your PCP 3. Continue Protonix twice a day 4. A follow up with GI will be arranged 5. Hold your Eliquis until discussing further with your PCP Current Hospital Diet Patient's current hospital diet: AHA Diet (Heart Healthy) Discharge Diet Recommended Diet: Regular Diet Procedures Procedures Performed: EGD Pending Studies Studies pending at discharge: no Laboratory Results Results Past 24 Hours Test 02/11/17 07:20 Range/Units White Blood Count 9.85 4.8-10.8 K/uL Red Blood Count 3.70 4.7-6.1 M/uL Hemoglobin 11.3 14.0-18.0 g/dL Hematocrit 34.6 42-52 % Mean Corpuscular Volume 93.5 80-100 fL Mean Corpuscular Hemoglobin 30.5 25-34 pg Mean Corpuscular Hemoglobin Concent 32.7 32-36 g/dl Platelet Count 308 130-400 K/uL Mean Platelet Volume 9.1 7.4-10.4 fL Neutrophils (%) (Auto) 77.2 % Lymphocytes (%) (Auto) 11.4 % Monocytes (%) (Auto) 7.9 % Eosinophils (%) (Auto) 2.8 % Basophils (%) (Auto) 0.3 % Neutrophils # (Auto) 7.60 1.4-6.5 K/uL Lymphocytes # (Auto) 1.12 1.2-3.4 K/uL Monocytes # (Auto) 0.78 0.11-0.59 K/uL Eosinophils # (Auto) 0.28 0-0.5 K/uL Basophils # (Auto) 0.03 0-0.2 K/uL RDW Standard Deviation 50.6 36.4-46.3 fL RDW Coefficient of Variation 14.7 11.5-14.5 % Immature Granulocyte % (Auto) 0.4 % Immature Granulocyte # (Auto) 0.04 0.00-0.02 K/uL Sodium Level 141 136-145 mmol/L Potassium Level 4.0 3.5-5.1 mmol/L Chloride Level 108 98-107 mmol/L Carbon Dioxide Level 25 21-32 mmol/L Anion Gap 8.0 3-11 mmol/L Blood Urea Nitrogen 10 7-18 mg/dl Creatinine 1.10 0.60-1.40 mg/dl Est Creatinine Clear Calc Drug Dose 57.1 ml/min Estimated GFR () 74.1 Estimated GFR (Non- 64.0 BUN/Creatinine Ratio 9.3 10-20 Random Glucose 100 70-99 mg/dl Calcium Level 8.2 8.5-10.1 mg/dl Phosphorus Level 2.6 2.5-4.9 mg/dl Magnesium Level 1.8 1.8-2.4 mg/dl Medical Emergencies . Who to Call and When: Medical Emergencies: If at any time you feel your situation is an emergency, please call 911 immediately. . Non-Emergent Contact Non-Emergency issues call your: Primary Care Provider Call Non-Emergent contact if: you have a fever, your pain is worsening . . "Provider Documentation" section prepared by Dulce Ignacio. . VTE Core Measure Inpt VTE Proph given/why not?: T.ENate. Stockings, SCD's
[2017-02-11 17:29] VITALS: BP 135/77; PULSE 66; TEMP 36.3; O2SAT 97
--- NOTE | 2017-02-11 17:34 | Discharge Summary ---
Discharge Summary Date of Service February 11, 2017. (Dulce Ignacio MD) Discharge Summary Admission Date: February 08, 2017 at 12:05 Discharge Date: February 11, 2017 Discharge Disposition: Home Principal Diagnosis: melena, c diff colitis Procedures: EGD Consultations: Dr rudolpho- GI (Dulce Ignacio MD) Medication Reconciliation New Medications: Cholestyramine (Cholestyramine Light) 4 Gm Pack 4 GM PO BID@10,22 for 30 Days, #30 Pantoprazole (Pantoprazole Sodium) 40 Mg Tab 40 MG PO BID for 30 Days, #60 TAB Vancomycin HCl (Vancomycin HCl) 125 Mg/2.5 Ml Susp 125 MG PO QID for 30 Days, #175 ML Continued Medications: Acetaminophen (Tylenol) 500 Mg Tab 1000 MG PO Q8 PRN for Pain, TAB Fluticasone Prop/Salmeterol (Advair Diskus 250/50 60 Dose) 1 Ea Aerp 1 PUFF INH BID, INHALER Ipratropium-Albuterol (Combivent Respimat) 1 Aer Aer 1 PUFF INH QID Lisinopril (Zestril) 20 Mg Tab 10 MG PO QAM for 14 Days, #7 TAB Magnesium Oxide (Mg Supplement (Magnesium) Unknown Strength Tab 1 TAB PO DAILY Metoprolol Succinate (Metoprolol Succinate ER) 50 Mg Tabcr 50 MG PO QAM for 90 Days Phosphorus (K-Phos Neutral) 250 Mg Tab 1 TAB PO DAILY for 7 Days Zolpidem Tartrate (Ambien) 5 Mg Tab 2.5 MG PO HS, TAB Discontinued Medications: Apixaban (Eliquis) 5 Mg Tab 5 MG PO BID for 90 Days, #180 TAB Celecoxib (CeleBREX) 200 Mg Cap 200 MG PO BID, CAP Metronidazole (Metronidazole) 500 Mg Tab 500 MG PO TID, #22 TAB take one evening dose. Then take three times a day starting 5/10 until finished. Ranitidine (Zantac) 150 Mg Tab 150 MG PO HS Discharge Exam Patient is feeling very well today. stool is still frequent however becoming more formed. Denies any bleeding or dark stools.Denies abdominal pain Discussed discharge with patient and patient reflected understanding of instructions and agrees with discharge Review of Systems: Constitutional: No fever Eyes: No worsening of vision ENT: No hearing loss Respiratory: No cough, No dyspnea at rest, No dyspnea on exertion, No shortness of breath, No sputum, No wheezing Cardiovascular: No chest pain Abdomen: + diarrhea, No constipation, No nausea, No pain, No vomiting Musculoskeletal: No joint pain, No muscle pain Genitourinary - Male: No dysuria, No hematuria Neurologic: No balance problems, No numbness/tingling, No weakness Endocrine: + fatigue Integumentary: No rash Physical Exam: General Appearance: no apparent distress Eyes: normal inspection ENT: normal ENT inspection Neck: supple Respiratory/Chest: normal breath sounds, no respiratory distress, no accessory muscle use Cardiovascular: regular rate, rhythm, no murmur Abdomen / GI: normal bowel sounds, non tender, soft Extremities: no pedal edema, normal range of motion Neurologic/Psychiatric: alert, normal mood/affect, oriented x 3 Skin: normal color, warm/dry, no rash Lymphatic: no adenopathy (Dulce Ignacio MD) Hospital Course 76yo M with PMHx of pneumonia, afib, COPD, cdiff colitis, recently discharge from here on 02/05 for PNA which he was treated for with Levaquin. He did note worsening diarrhea and he was diagnosed with C diff colitis. He was d/c home with Flag. He returned to the ED on 02/08 because of concern for his blood pressure however because of ongoing diarrhea it was decided he would be admitted for failure of his medical management of C diff colitis. He was treated with vancomycin in house and plan is a slow taper on discharge. He was also noted to have Hemoccult positive stools so his Eliquis was held and an EGD was completed. An EGD revealed a non bleeding ulceration in the gastric mucosa. There is a plan to complete a colonoscopy however after the colitis has resolved. C. Diff colitis: - received four days of vanco prior to d/c -will need a taper of this as follows : QID x 14 d, TID x 5d, BID x 5d, then daily x 5 days and stop. GI bleed - Eliquis has still been held, he does have a follow up with PCP where patient can discuss the continuation of the medication - Colonoscopy will be arranged for approx a month from now - pantoprazole 40 mg BID Atrial Fibrillation - Rate controlled on metoprolol succinated 50 mg QAM, Lisinopril 10 mg QA Pneumonia LOBO - Started on aztreonam this admission for concern of HCAP with recent admission - afebrile, no leukocytosis - will stop IV abx - has outpt follow up with Dr Rios - CXR reviewed- in left upper lobe with known small left pleural effusion, aeration improving-- will need repeat CXR as oupt in 4 weeks. 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 (Dulce Ignacio MD) Resident Physician Supervision Note: I interviewed and examined the patient. Discussed with Dr. Ignacio and agree with findings and plan as documented in the note. Any exceptions or clarifications are listed here: None Documented By: Elton Yan feeling better wants to go home after scope as long as negative. extensive d/w pt and family answered all questions to the best of my ability. vitals noted nad breathing unlabored cdiff - vanco / cholestyramine - improving. outpt f/u heme (+) stools - stable for home ongoing w/u and f/u as outpt (Elton Yan, D.O.) Discharge Instructions Please refer to the electronic Patient Visit Report (Discharge Instructions) for additional information. (Dulce Ignacio MD) Additional Copies To Richmond Bennett M.D.
[2017-06-04] MEDS ORDERED: TIOT1AER INH (10:13)
[2017-06-04] MEDS ORDERED: POLYSOL4 OPB (10:13)
[2017-06-04] MEDS ORDERED: MAGN1TAB19 PO (10:28)
[2017-06-04] MEDS ORDERED: CLB/200 PO (10:28)
[2017-06-04] MEDS ORDERED: PANT40TA PO (10:28)
[2017-06-04] MEDS ORDERED: ACET-1256 PO (10:28)
[2017-06-04] MEDS ORDERED: FLM4 PO (10:28)
[2017-06-04] MEDS ORDERED: METO50TA7 PO (10:28)
[2017-06-04] MEDS ORDERED: LISI-725 PO (10:28)
[2017-06-04] MEDS ORDERED: ZOLP5TAB6 PO (10:28)
[2017-06-04] MEDS ORDERED: ADVIN25/60 INH (10:28)
[2017-06-04] MEDS ORDERED: VGR25 PO (10:28)
== END 2017-02-11 18:10 | disposition home or self-care (01) | DRG 371 ==
LOC: ENRESERVDT → ENRESERVTM → C.EDB 10:29 → C.MS4W 12:05
PROVIDERS: ADMIT Hospitalist; ATTEND Family Medicine
PROC: 0DJ08ZZ Inspection of Upper Intestinal Tract, Via Natural or Artificial Opening Endoscopic (ICD-10-PCS; principal; 2017-02-11 13:30)
DX: A04.7 Enterocolitis due to Clostridium difficile (principal); J18.9 Pneumonia, unspecified organism; K92.2 Gastrointestinal hemorrhage, unspecified; J44.9 Chronic obstructive pulmonary disease, unspecified; E86.0 Dehydration; E83.42 Hypomagnesemia; E83.39 Other disorders of phosphorus metabolism; N18.3 Chronic kidney disease, stage 3 (moderate); I48.91 Unspecified atrial fibrillation; Z87.891 Personal history of nicotine dependence

== ENCOUNTER → 2017-02-13 | Outpatient (CLI) | payer OTHER ==
[~2017-02-13] MED LIST changes: -APIX1TAB3 PO; +FLM4 PO; -LEVO750T23 PO; +MAGN1TAB19 PO; +METO50TA7 PO; -MTR500 PO; +PANT40TA PO; +POLYSOL4 OPB; +PRT40 PO; +QSTP PO; +TIOT1AER INH; +VGR25 PO; +VNCS125 PO; -ZNTT/150 PO; +ZOLP5TAB PO; +ZOLP5TAB6 PO
[2017-02-13 12:07] LABS: BASO % 0.2 %; BASO ABS # 0.03 K/uL (0-0.2); COMPLETE YES; EOS % 1.8 %; HEMATOCRIT 40.7 % (42-52); IG% 0.3 %; LYMPH % 9.4 %; LYMPH ABS # 1.34 K/uL (1.2-3.4); MEAN CELL VOLUME 95.1 fL (80-100); MEAN CORPUSCULAR HEMOGLOBIN 31.1 pg (25-34); MEAN CORPUSCULAR HGB CONC 32.7 g/dl (32-36); MEAN PLATELET VOLUME 9.7 fL (7.4-10.4); MONO % 6.4 %; NEUT % 81.9 %; PLATELET COUNT 419 K/uL (130-400); RED BLOOD COUNT 4.28 M/uL (4.7-6.1); WHITE BLOOD COUNT 14.18 K/uL (4.8-10.8)
[2017-02-13 12:55] LABS: ALT/SGPT 30 U/L (12-78); BLOOD UREA NITROGEN 10 mg/dl (7-18); BUN/CREATININE RATIO 8.6 (10-20); CARBON DIOXIDE 26 mmol/L (21-32); CHLORIDE 104 mmol/L (98-107); GLUCOSE 103 mg/dl (70-99); POTASSIUM 4.6 mmol/L (3.5-5.1); SODIUM 140 mmol/L (136-145)
[2017-02-13 12:58] LABS: ALB/GLOB RATIO 0.7 (0.9-2); ALKALINE PHOSPHATASE 75 U/L (45-117); AST/SGOT 22 U/L (15-37); PHOSPHORUS 2.6 mg/dl (2.5-4.9)
== END ==
LOC: C.LABBFT 09:45
PROVIDERS: ATTEND Internal Medicine
DX: A04.7 Enterocolitis due to Clostridium difficile (principal)

== ENCOUNTER → 2017-03-22 | Outpatient (CLI) | payer OTHER | END | disposition home or self-care (01) | LOC: C.LAB1850 11:28 | PROVIDERS: ATTEND Internal Medicine | DX: A04.7 Enterocolitis due to Clostridium difficile (principal) ==

== ENCOUNTER → 2017-05-27 | Outpatient (CLI) | payer OTHER ==
[2017-05-27 12:24] LABS: ALT/SGPT 35 U/L (12-78); BLOOD UREA NITROGEN 18 mg/dl (7-18); BUN/CREATININE RATIO 12.9 (10-20); CALCIUM 8.8 mg/dl (8.5-10.1); CARBON DIOXIDE 29 mmol/L (21-32); CHLORIDE 105 mmol/L (98-107); GLUCOSE 90 mg/dl (70-99); SODIUM 141 mmol/L (136-145)
[2017-05-27 12:27] LABS: ALKALINE PHOSPHATASE 125 U/L (45-117); AST/SGOT 35 U/L (15-37)
[2017-05-27 12:37] LABS: BASO % 0.6 %; BASO ABS # 0.06 K/uL (0-0.2); COMPLETE YES; EOS % 2.9 %; IG% 0.2 %; LYMPH % 15.5 %; LYMPH ABS # 1.44 K/uL (1.2-3.4); MEAN CELL VOLUME 92.2 fL (80-100); MEAN CORPUSCULAR HEMOGLOBIN 28.9 pg (25-34); MEAN CORPUSCULAR HGB CONC 31.3 g/dl (32-36); MEAN PLATELET VOLUME 9.5 fL (7.4-10.4); MONO % 7.8 %; PLATELET COUNT 225 K/uL (130-400); RED BLOOD COUNT 4.88 M/uL (4.7-6.1); WHITE BLOOD COUNT 9.28 K/uL (4.8-10.8)
== END | disposition home or self-care (01) ==
LOC: C.LABBFT 10:14
PROVIDERS: ATTEND Internal Medicine
DX: D64.9 Anemia, unspecified (principal)

== ENCOUNTER → 2017-06-07 | Outpatient (CLI) | payer OTHER ==
[~2017-06-07] MED LIST changes: -IPRA1AER2 INH; -KPH250 PO; -MAGN250T8 PO; -PRT40 PO; -QSTP PO; -TPRSR50 PO; -VNCS125 PO; -ZOLP5TAB PO
[2017-06-07 13:18] LABS: HEMATOCRIT 42.6 % (42-52); MEAN CELL VOLUME 91.2 fL (80-100); MEAN CORPUSCULAR HEMOGLOBIN 30.4 pg (25-34); MEAN CORPUSCULAR HGB CONC 33.3 g/dl (32-36); MEAN PLATELET VOLUME 9.7 fL (7.4-10.4); PLATELET COUNT 200 K/uL (130-400); RED BLOOD COUNT 4.67 M/uL (4.7-6.1); WHITE BLOOD COUNT 9.92 K/uL (4.8-10.8)
== END | disposition home or self-care (01) ==
LOC: C.LAB1850 11:35
PROVIDERS: ATTEND Internal Medicine Cardiovascular Disease
DX: K27.9 Peptic ulcer, site unspecified, unspecified as acute or chronic, without hemorrhage or perforation (principal)

== ENCOUNTER → 2017-06-20 | Day surgery (SDC) | payer OTHER ==
[2017-06-04 10:14] VITALS: BMI 26.0
[~2017-06-20] VITALS: Ht 177.8 cm; Wt 81.8 kg
[~2017-06-20] MED LIST changes: +LIDOCAINE HCL 2% 2 ML VIAL (20MG/ML) ONE; +PROPOFOL IV EMULSION 10 MG/ML 20 ML VIAL IV ONE
[2017-06-20 13:19] VITALS: Ht 177.8 cm; Wt 81.8 kg
--- NOTE | 2017-06-20 14:16 | Endo History and Physical ---
History & Physical Date of Service: Jun 20, 2017. Chief Complaint: ANEMIA Referring Physician: DR GARCIA History of Present Illness For colonoscopy Past Medical History Arthritis, Hypertension, COPD Past Surgical History Hx Cardiac Surgery: No Hx Internal Defibrillator: No Hx Pacemaker: No Hx Abdominal Surgery: Yes (APPY) Hx of Implantable Prosthesis: No Hx Post-Op Nausea and Vomiting: No Hx Cancer Surgery: No Hx Thoracic Surgery: No Hx Orthopedic: Yes (RT/LEFT NAVARRO) Hx Urinary Tract Surgery: No Family History Esophogeal CA Social History Smoking Status: Former Smoker Hx Substance Use: No Hx Alcohol Use: No Allergies Coded Allergies: Penicillins (Verified Allergy, Unknown, HIVES, 06/04/17) Current Medications Reported Home Medications Medications Dose Route/Sig Max Daily Dose Days Date Category Zolpidem Tartrate 5 Mg Tab 1 Tab PO HS PRN 30 06/04/17 Reported Tylenol (Acetaminophen) 500 Mg Tab 1,000 Mg PO Q8H PRN 06/04/17 Reported Tamsulosin HCl 0.4 Mg Cap 1 Cap PO HS PRN 06/04/17 Reported Viagra (Sildenafil Citrate) 25 Mg Tab 25 Mg PO PRN 06/04/17 Reported Protonix (Pantoprazole Sodium) 40 Mg Tab 40 Mg PO QAM 06/04/17 Reported Toprol-Xl (Metoprolol Succinate) 50 Mg Tabcr 50 Mg PO QAM 06/04/17 Reported Magnesium Oxide (Magnesium Oxide (Mg Supplement) 400 Mg Tab 1 Tab PO QAM 06/04/17 Reported Zestril (Lisinopril) 20 Mg Tab 20 Mg PO QAM 06/04/17 Reported CeleBREX (Celecoxib) 200 Mg Cap 200 Mg PO QAM 06/04/17 Reported Systane (Polyethylene Glycol-Propylene) 1 Dora Dora 1 Drops OPB QID PRN 06/04/17 Reported Stiolto Respimat 2.5-2.5 Mcg/Act (Tiotropium [place]-Olodaterol) 1 Aer Aer 1 Puff INH QAM 06/04/17 Reported Vital Signs Weight (Kilograms): 81.82 Height (Feet): 5 Height (Inches): 10 Date Time Temp Pulse Resp B/P (MAP) Pulse Ox O2 Delivery O2 Flow Rate FiO2 06/20/17 13:21 36.5 100 16 175/88 (117) 96 Room Air Physical Exam General Appearance: WD/WN Respiratory/Chest: Respiratory effort: no dyspnea Cardiovascular: Apical Impulse: pertinent finding Heart Auscultation: RRR Abdomen: Inspection & Palpation: soft Assessment and Plan Anemia for colonoscopy
--- NOTE | 2017-06-20 14:43 | Discharge Instructions ---
Endoscopy Patient Instructions Date / Procedure(s) Performed Jun 20, 2017. Colonoscopy Allergy Information Coded Allergies: Penicillins (Verified Allergy, Unknown, HIVES, 06/04/17) Discharge Date / Findings Jun 20, 2017. diverticulosis, hemorrhoids Medication Instructions Restart Stopped Medication(s): resume meds Reported Home Medications Medications Dose Route/Sig Max Daily Dose Days Date Category Zolpidem Tartrate 5 Mg Tab 1 Tab PO HS PRN 30 06/04/17 Reported Tylenol (Acetaminophen) 500 Mg Tab 1,000 Mg PO Q8H PRN 06/04/17 Reported Tamsulosin HCl 0.4 Mg Cap 1 Cap PO HS PRN 06/04/17 Reported Viagra (Sildenafil Citrate) 25 Mg Tab 25 Mg PO PRN 06/04/17 Reported Protonix (Pantoprazole Sodium) 40 Mg Tab 40 Mg PO QAM 06/04/17 Reported Toprol-Xl (Metoprolol Succinate) 50 Mg Tabcr 50 Mg PO QAM 06/04/17 Reported Magnesium Oxide (Magnesium Oxide (Mg Supplement) 400 Mg Tab 1 Tab PO QAM 06/04/17 Reported Zestril (Lisinopril) 20 Mg Tab 20 Mg PO QAM 06/04/17 Reported CeleBREX (Celecoxib) 200 Mg Cap 200 Mg PO QAM 06/04/17 Reported Systane (Polyethylene Glycol-Propylene) 1 Dora Dora 1 Drops OPB QID PRN 06/04/17 Reported Stiolto Respimat 2.5-2.5 Mcg/Act (Tiotropium Crane-Olodaterol) 1 Aer Aer 1 Puff INH QAM 06/04/17 Reported Provider Instructions Activity Restrictions - No exercising or heavy lifting for 24 hours. - Do not drink alcohol the day of the procedure. - Do not drive a car or operate machinery until the day after the procedure. - Do not make any important decisions or sign important papers in 24 hours after the procedure. Following Day: - Return to full activity which may include returning to work/school. Diet Start your diet with liquids and light foods (jello, soup, juice, toast). Then eat your usual diet if not nauseated. Treatment For Common After Affects For mild abdominal pain, bloating, or excessive gas: - Rest - Eat lightly - Lie on right side Follow-Up Information Follow-up with DR GARCIA as scheduled Anesthesia Information What You Should Know You have had a procedure that required some medicine to reduce anxiety and discomfort. This treatment is called moderate sedation. After receiving the treatment, you may be sleepy, but you will be able to breathe on your own. The effects of the treatment may last for several hours. Follow these instructions along with Activity/Diet recommendations noted above: * Do NOT do anything where dizziness or clumsiness would be dangerous. * Rest quietly at home today, then you can be up and about tomorrow. * Have a responsible person stay with you the rest of today. * You may have had an I.V. today. If so, you may take the dressing off later today. Recommendations Call your doctor if: * Trouble breathing * Continuous vomiting for more than 24 hours * Temperature above 101 degrees * Severe abdominal pain or bloating * Pain not relieved by pain medicine ordered * There is increased drainage or redness from any incision * A large amount of rectal bleeding greater than 2-3 tablespoons. (If you had a polyp/s removed or have hemorrhoids, a small amount of blood - from the rectum is to be expected.) * You have any unanswered questions or concerns. IN THE EVENT OF A SERIOUS EMERGENCY, GO TO THE NEAREST EMERGENCY ROOM Your discharge instructions were prepared by provider Job Carrillo. Patient Instructions Signature Page Ian George Patient (or Guardian) Signature/Date: I have read and understand the instructions given to me by my caregivers. Caregiver/RN/Doctor Signature/Date: The above-named patient and/or guardian has received patient instructions on this date. + Original Patient Signature Page (only) stays with chart. Please make copy for patient.
--- NOTE | 2017-06-20 14:46 | GI REPORT ---
Procedure Date: 06/20/2017 2:23 PM Procedure: Colonoscopy Indications: Iron deficiency anemia Medicines: Propofol total dose 150 mg IV, Lidocaine 40 mg IV Complications: No immediate complications. Estimated Blood Loss: Estimated blood loss: none. Procedure: Pre-Anesthesia Assessment: - Prior to the procedure, a History and Physical was performed, and patient medications, allergies and sensitivities were reviewed. The patient's tolerance of previous anesthesia was reviewed. - The risks and benefits of the procedure and the sedation options and risks were discussed with the patient. All questions were answered and informed consent was obtained. After I obtained informed consent, the scope was passed under direct vision. Throughout the procedure, the patient's blood pressure, pulse, and oxygen saturations were monitored continuously. The scope was introduced through the anus and advanced to the terminal ileum. The colonoscopy was performed without difficulty. The patient tolerated the procedure well. The quality of the bowel preparation was fair. Findings: Multiple diverticula were found in the sigmoid colon and in the ascending colon. Non-bleeding internal hemorrhoids were found during endoscopy. The hemorrhoids were mild. The terminal ileum appeared normal. Impression: - Diverticulosis in the sigmoid colon and in the ascending colon. - Non-bleeding internal hemorrhoids. - The examined portion of the ileum was normal. - No specimens collected. Recommendation: - Discharge patient to home (ambulatory). - Continue present medications. - Return to primary care physician PRN. Job Carrillo M.D. Job Carrillo MD 06/20/2017 2:46:19 PM This report has been signed electronically. Note Initiated On: 06/20/2017 2:23 PM I attest to the content of the Intraoperative Record and orders documented therein, exceptions below
[2017-06-20 15:18] VITALS: BP 162/89; PULSE 60; O2SAT 95
--- NOTE | 2017-06-20 15:19 | Anesthesiology Progress Note ---
Anesthesia Post Op Note Date & Time Jun 20, 2017 at 15:19 Vital Signs Pain Intensity: 0 Vital Signs Past 12 Hours Date Time Temp Pulse Resp B/P (MAP) Pulse Ox O2 Delivery O2 Flow Rate FiO2 06/20/17 15:03 64 16 158/83 (108) 95 Room Air 06/20/17 14:48 65 16 130/69 (89) 97 Room Air 06/20/17 13:21 36.5 100 16 175/88 (117) 96 Room Air Notes Mental Status: alert / awake / arousable, participated in evaluation Pt Amnestic to Procedure: Yes Nausea / Vomiting: adequately controlled Pain: adequately controlled Airway Patency, RR, SpO2: stable & adequate BP & HR: stable & adequate Hydration State: stable & adequate Anesthetic Complications: no major complications apparent
== END | disposition home or self-care (01) ==
LOC: C.GI 12:56
PROVIDERS: ATTEND Internal Medicine Gastroenterology
DX: D50.9 Iron deficiency anemia, unspecified (principal); K57.30 Diverticulosis of large intestine without perforation or abscess without bleeding; K64.8 Other hemorrhoids; J44.9 Chronic obstructive pulmonary disease, unspecified; I10 Essential (primary) hypertension; M19.90 Unspecified osteoarthritis, unspecified site; Z90.49 Acquired absence of other specified parts of digestive tract; Z96.643 Presence of artificial hip joint, bilateral; Z87.891 Personal history of nicotine dependence; Z80.0 Family history of malignant neoplasm of digestive organs

== ENCOUNTER → 2017-07-22 | Outpatient (CLI) | payer OTHER ==
[~2017-07-22] MED LIST changes: -ADVIN25/60 INH; -LIDOCAINE HCL 2% 2 ML VIAL (20MG/ML) ONE; -PROPOFOL IV EMULSION 10 MG/ML 20 ML VIAL IV ONE
--- NOTE | 2017-07-22 10:10 | DIAGNOSTIC IMAGING REPORT ---
(CHEST) THORAX WITHOUT CT DOSE: 418.60 mGycm CLINICAL HISTORY: 76 years-old Male with R91.8 Abnormal finding on lung imagingThe patient has an abnorma. Acute shortness of breath. Follow-up study in a patient with pneumonia TECHNIQUE: Multiaxial CT images of the chest were performed without contrast. A dose lowering technique was utilized adhering to the principles of ALARA. COMPARISON: Chest radiographs 02/08/2017. FINDINGS: No dominant thyroid nodule identified. There is minimal nonspecific haziness surrounding a prominent nonenlarged lymph node of the left axilla, 9 mm in short axis. Image 52 of series 4 favoring a reactive process. No pathologic adenopathy of the chest identified. Heart is normal in size without pericardial effusion. Aortic annular and coronary arterial calcifications are present. Moderate atherosclerotic plaquing of the thoracic aorta. No pneumothorax or pleural effusion. Mild upper lobe predominant centrilobular and paraseptal emphysema. Mild bilateral bronchial wall thickening. There is mild tree-in-bud nodularity within the posterior segment right upper lobe with associated groundglass densities. Subsegmental groundglass densities are also present within the lingula, right middle lobe and bilateral lower lobes suggesting admixture of pneumonitis with atelectasis/scarring. No focal airspace consolidations. There are no suspicious pulmonary nodules identified. Subsegmental are calcified granuloma of the anterior segment right upper lobe. 3 mm noncalcified pulmonary nodule of the apical segment right upper lobe, image 39 series 4. This is likely benign. Imaged upper abdominal structures are unremarkable. Soft tissues are within normal limits. Multilevel endplate spurring and facet arthropathy of the thoracic spine. IMPRESSION: 1. Mild bronchial wall thickening bilaterally suggests bronchitis with scattered areas of subsegmental groundglass opacities and tree-in-bud nodularity as above suggesting bronchiolitis and pneumonitis without focal lobar airspace consolidation to suggest pneumonia. 2. Mild upper lobe prominent centrilobular and paraseptal emphysema. Electronically signed by: Duane Briggs M.D. 07/22/2017 10:09 AM Dictated Date/Time: 07/22/2017 9:50 AM
== END | disposition home or self-care (01) ==
LOC: C.CTS 09:04
PROVIDERS: ATTEND Internal Medicine Critical Care Medicine
DX: R91.8 Other nonspecific abnormal finding of lung field (principal); J43.2 Centrilobular emphysema; J43.8 Other emphysema

== ENCOUNTER → 2017-12-02 | Outpatient (CLI) | payer OTHER ==
[~2017-12-02] MED LIST changes: -METO50TA7 PO; +METO50TA8 PO
[2017-12-02 17:57] LABS: ALBUMIN 3.6 gm/dl (3.4-5.0); ALT/SGPT 18 U/L (12-78); BLOOD UREA NITROGEN 16 mg/dl (7-18); CALCIUM 8.4 mg/dl (8.5-10.1); CARBON DIOXIDE 31 mmol/L (21-32); CHOLESTEROL 155 mg/dl (0-200); CREATININE 1.37 mg/dl (0.60-1.40); GLUCOSE 102 mg/dl (70-99); POTASSIUM 3.4 mmol/L (3.5-5.1); SODIUM 138 mmol/L (136-145)
[2017-12-02 18:00] LABS: ALKALINE PHOSPHATASE 114 U/L (45-117); AST/SGOT 18 U/L (15-37); LDL CHOLESTEROL CALCULATED 88 mg/dl; TOTAL PROTEIN 7.1 gm/dl (6.4-8.2)
[2017-12-03 06:25] LABS: HEMOGLOBIN A1C 5.7 % (4.5-5.6)
== END | disposition home or self-care (01) ==
LOC: C.LABBFT 15:28
PROVIDERS: ATTEND Internal Medicine
DX: R73.01 Impaired fasting glucose (principal)

== ENCOUNTER → 2018-04-30 | Outpatient (CLI) | payer OTHER ==
--- NOTE | 2018-04-30 10:18 | DIAGNOSTIC IMAGING REPORT ---
TWO VIEW CHEST CLINICAL HISTORY: Cough. FINDINGS: PA and lateral chest radiographs are compared to study dated 02/08/2017 and correlated with chest CT dated 07/22/2017. The cardiomediastinal silhouette is unremarkable noting atherosclerotic calcification of the thoracic aorta. Emphysema and chronic interstitial thickening are similar to previous. There is no airspace consolidation or pleural effusion. Mild bibasilar atelectasis is observed. There is no pneumothorax. The skeletal structures are osteopenic. The bony thorax appears intact. Degenerative change and mild scoliosis are seen in the thoracic spine. IMPRESSION: Emphysematous change with no acute cardiopulmonary abnormality. Electronically signed by: Branden Tobias M.D. 04/30/2018 10:17 AM Dictated Date/Time: 04/30/2018 10:16 AM
== END | disposition home or self-care (01) ==
LOC: C.RAD1850 09:54
PROVIDERS: ATTEND Physician Assistant
DX: R05 Cough (principal)

== ENCOUNTER 2022-04-24 07:39 | Inpatient (IN) ==
--- NOTE | 2022-04-20 15:04 | Anesthesiology Consultation ---
Date of Service April 20, 2022 Assessment & Plan (1) Encounter for pre-operative examination: Plan - awaiting confirmed CXR report. - vascular surgery 04/19/22 [facility]: "...we recommended repair of AAA d/t increase in size of the last 4 years and the 6.8 size of the aneurysm itself...will obtain a preop echo to evaluate his cardiac function prior to surgery..." - PCP 04/03/22 [facility]: "...COPD exacerbation-continue inhalers. Start prednisone taper..." - pulmonology 12/14/21 [facility]: "...past medical history of COPD [place] [address] Ibarra. FEV1 is severely reduced at 40% with an FVC of 68%...1 year supply of prednisone and has been instructed to go on a taper as needed. Typically he is on a taper once a month starting with 40 mg and decreasing by 10 mg every 2 days until done. Although patient is on sildenafil this is for erectile dysfunction and not for pulmonary hypertension. Patient is also on supplemental oxygen 2 L/min via nasal cannula at night only..." - EP 12/11/21 [place]: "...Loop recorder: Interrogation of his loop recorder shows that the battery is still good despite the device being in place for 3-1/2 years. He had one automatically recorded device which looks like a pause following a PVC and was only 3 seconds in the brick burner hours. We are going to continue to monitor...no syncope since loop recorder implantation. We will continue to monitor until the device battery is depleted. At that point we should probably replace it since his syncopal episodes are very infrequent...Atrial fibrillation: Although it was described that he was having episodes of atrial fibrillation in the past we have identified none on loop recorder monitoring in 3-1/2 years so I would continue without anticoagulation..." - COVID screening: Per banking analyst on 04/20/2022: Travel screen negative, no known COVID-19 positive contacts or current COVID-19 related symptoms in past 2 weeks. Pt vaccinated. Surgeon arranging preop COVID testing, scheduled 04/20/2022. Awaiting results. Chart Review Chart Review: Acceptable Risk for Surgery and Patient NOT seen in Pre Admission Testing History Surgery Operation Date: 04/24/22 09:50 Proposed Procedures p Percutaneous Endovascular Repair - Gabriel Brody MD Height/Weight Height: 5 ft 10 in Weight: 86.183 kg Allergies Allergy/AdvReac Type Severity Reaction Status Date / Time No Known Drug Allergies Allergy Verified 04/20/22 10:10 Medications Home Medications Medication Instructions Recorded Confirmed Last Taken Oxygen Home #2 L 12/08/19 04/03/22 Unknown vit C 250 mg-vit E 90 mg-zinc 40 1 tab PO BID 05/05/20 04/20/22 06/03/21 mg-copper 1 [id number] capsule (PreserVision AREDS-2) nebulizers #1 ea 09/07/20 04/03/22 Unknown aflibercept 2 mg/0.05 mL 0 mg intravitreal UD 06/03/21 04/20/22 Unknown intravitreal solution for injection (Eylea) famotidine 20 mg tablet (Pepcid) 20 mg PO HS 06/03/21 04/20/22 06/02/21 peg 400-propylene glycol (PF) 0.4 1 drp OPB BID 06/03/21 04/20/22 06/03/21 %-0.3 % eye drops in a dropperette (Systane (PF)) telmisartan 40 mg tablet (Micardis) 40 mg PO QAM 06/03/21 04/20/22 06/03/21 celecoxib 200 mg capsule (Celebrex) 200 mg PO QAM #90 caps 06/06/21 04/20/22 Unknown metoprolol succinate 50 mg 50 mg PO QAM #90 tabs 08/29/21 04/20/22 Unknown tablet,extended release 24 hr (Toprol XL) sildenafil 100 mg tablet (Viagra) 100 mg PO DAILY PRN sexual 09/11/21 04/20/22 Unknown activity #30 tabs montelukast 10 mg tablet 10 mg PO HS #90 tabs 12/06/21 04/20/22 Unknown (Singulair) Flutter Valve #1 ea 12/29/21 04/03/22 Unknown albuterol sulfate 90 mcg/actuation 2 inh inhalation Q4H PRN shortness 12/29/21 04/20/22 Unknown aerosol inhaler (Ventolin HFA) of breath #8.5 grams budesonide 160 mcg-glycopyr 9 2 inh inhalation BID COPD #10.7 12/29/21 04/20/22 Unknown mcg-formot 4.8 mcg/actuation HFA grams inhaler (Breztri Aerosphere) guaifenesin 600 mg tablet, 600 mg PO BID PRN congestion #60 12/29/21 04/20/22 Unknown extended release 12 hr (Mucinex) tabs levalbuterol HCl 1.25 mg/3 mL 1.25 mg (3 mL) inhalation Q4 PRN 12/29/21 04/20/22 Unknown solution for nebulization (Xopenex) Shortness Of Breath #180 mL magnesium oxide 400 mg PO QAM #0 caps 01/16/22 04/20/22 Unknown zolpidem 5 mg tablet 5 mg PO HS #30 tabs 01/16/22 04/20/22 Unknown epinephrine 0.3 mg/0.3 mL 0.3 mg IM UD PRN bronchodilation 04/20/22 04/20/22 Unknown injection, auto-injector (EpiPen 2-Marco Antonio) finasteride 5 mg tablet 5 mg PO QAM 04/20/22 04/20/22 Unknown pantoprazole 40 mg tablet,delayed 40 mg PO QAM 04/20/22 04/20/22 Unknown release (Protonix) potassium chloride 20 mEq 20 meq PO QAM 04/20/22 04/20/22 Unknown tablet,extended release Past Medical History Medical History Aneurysm of infrarenal abdominal aorta 04/18/2022 - 7cm x 6.7 cm Atrial fibrillation dx 7 yrs ago BPH (benign prostatic hyperplasia) CKD (chronic kidney disease) COPD (chronic obstructive pulmonary disease) Erectile dysfunction GERD (gastroesophageal reflux disease) Hearing loss Hypertension Implantable loop recorder present dr jacobson - 3 yrs ago Insomnia Nocturnal hypoxia o2 2l at hs Osteoarthritis Syncopal episodes summer 2020 Past Family History Family History Other Coronary heart disease Diabetes Past Surgical History Surgical History History of left hip replacement History of right hip replacement Hx of appendectomy Hx of colonoscopy Social History Smoking Status: Never smoker Smoking cigarettes per day: 20 Do You Dip or Chew Tobacco: No Hx Alcohol Use: No Hx Substance Use: No substance use type: does not use Lab Results Anesthesia Preop Results Results Anesthesia Widget: WBC 12.60 K/ul (4.8-10.8) H 04/20/22 Hgb 12.5 g/dl (14.0-18.0) L 04/20/22 Hct 38.6 % (40.1-51.0) L 04/20/22 Plt 181 K/uL (130-400) 04/20/22 Na 138 mmol/L (136-145) 04/20/22 K 3.8 mmol/L (3.5-5.1) 04/20/22 Cl 103 mmol/L (98-107) 04/20/22 CO2 29 mmol/L (21-32) 04/20/22 BUN 16 mg/dl (6-23) 04/20/22 Creat 1.32 mg/dl (0.6-1.4) 04/20/22 Glucose Level 117 mg/dl (70-99(Fasting)) H 04/20/22 PT 10.9 Seconds (9.0-12.0) 04/20/22 PTT 29.6 Seconds (21.0-31.0) 04/20/22 INR 1.0 (0.9-1.1) 04/20/22 Blood Type O Positive 04/20/22 Antibody Screen NEGATIVE 04/20/22 Testing Electrocardiogram Date: 04/20/22 Sinus rhythm with occasional PVs, rate 66 bpm Rightward axis Incomplete RBBB Septal infarct, age undetermined Chest X-Ray Date: 04/20/22 Other Testing Abdomen pelvis CTA 04/19/22 Lower chest: Bronchial wall thickening is seen in the lower lungs. Pancreas: There is a cystic density in the pancreatic head measuring 13 mm in diameter. Adrenals: Right adrenal nodule is seen, essentially unchanged from 2017, represent a lipid rich adenoma.. Kidneys and ureters: Previously noted renal cysts are stable. Bladder: Limited evaluation due to underdistention. Mild bladder wall thickening is seen. Bowel: Diverticulosis is seen without evidence of diverticulitis. Abdominal wall: Bilateral fat-containing inguinal hernias are seen. Bones: Degenerative changes in the visualized spine. CT angiogram: There is an infrarenal aortic aneurysm measuring approximately 68 mm at greatest diameter. Mural thrombus is seen without evidence of instability. This aneurysm measured approximately 39 mm in 2017. Diffuse atherosclerotic calcifications are seen. The origins of the celiac axis, superior mesenteric, inferior mesenteric and bilateral renal arteries are patent. IMPRESSION: 1. Interval enlargement of an infrarenal aortic aneurysm which now measures 68 mm in greatest diameter. 2. Bladder wall thickening may be due to underdistention, however, correlation for cystitis is recommended. Carotid duplex 03/29/22 R ICA 50-69% stenosis L ICA < 50% stenosis Loop recorder report 02/22/22 [employer] PVCs presenting rhythm NSR PFTs 12/26/21 Adequate test Mod obstruction Insignificant bronchodilator response Mod COPD with emphysema
--- NOTE | 2022-04-24 07:34 | History & Physical Report ---
Date of Service April 24, 2022 History of Present Illness Primary Care Provider: ANGELITA Moody Chief Complaint rm#6 aneurysm meeting intervention criteria, instructed no exertion, no lifting more than 5-10 lbs History of Present Illness I the pleasure of seeing Ian today for evaluation of his abdominal aortic aneurysm. He is an 81-year-old gentleman who has a known aneurysm which was 3.9 cm in 2017. He is complaining of chronic back pain for which she had an MRI. MRI showed enlargement of the aneurysm sac. He has a loop recorder has been in for over 2-1/2 years. He is hypertensive. He also has COPD. He recently underwent carotid ultrasound which showed a 56% narrowing of his carotid arteries. He is presently undergoing injections for macular degeneration. He does have a 58-year smoking history and quit 6 years ago. He denies any claudication. Denies any symptoms of cerebrovascular insufficiency. Review of Systems 10 systems were reviewed. Positive findings are cough wheezing shortness of breath nausea heartburn and diarrhea on occasion. Rest of his positive findings are in the HPI. Physical Exam Vitals & Measurements HR: 74 (Monitored) BP: 162/90 SpO2: 94% WT: 83.9 kg Input and Output - Last 24 hours (Last 8 hours) No I/O Data Found: On physical exam patient is awake alert and oriented x3. His blood pressure is 162/90. He is in no apparent distress. Radials carotids and superficial temporal arteries are +2 bilaterally. There is a left carotid bruit audible. His lungs are clear with slightly distant breath sounds. Heart had a regular rate and rhythm. Abdominal exam is benign there is a pulsatile mass in the midepigastrium. Femorals are +2 bilaterally. Pedal's are +1 bilaterally. There is normal capillary refill in both feet. Neurologic exam is grossly int act motor and sensory function. He did have a CT angiogram prior to being seen today which showed a 6.8 cm abdominal aortic aneurysm. The neck itself is approximately 15 mm in length. Assessment/Plan 1. AAA (abdominal aortic aneurysm) At this point we recommended repair of abdominal aortic aneurysm due to the increase in size of the last 4 years and the 6.8 size of the aneurysm itself. With a 15 mm long neck he is a candidate for an endovascular repair. We went over the risks options and benefits and he is agreeable to go ahead with this procedure. We will obtain a preop echo to evaluate his cardiac function prior to surgery. We will keep you informed as to his results. Thank you very much for letting us participate in the care of this patient. Sincerely, Sonido Brody MD Ordered: Echo TransTHORacic TTE Complete Problem List/Past Medical History Ongoing AAA (abdominal aortic aneurysm) Arthritis BPH (benign prostatic hyperplasia) COPD (chronic obstructive pulmonary disease) GERD (gastroesophageal reflux disease) HTN (hypertension) Skin lesion Historical No qualifying data Procedure/Surgical History Shave biopsy of skin (10/13/2020) Shave biopsy of skin (10/13/2020) Shave biopsy and cauterisation of skin (05/09/2018) Colonoscopy (06/20/2017) Hip replacement Medications Inpatient No active inpatient medications Home Breztri Aerosphere inhalation aerosol celecoxib 200 mg oral capsule, 200 mg= 1 cap, PO, Daily famotidine 20 mg oral tablet, 20 mg= 1 tab, PO, qhs finasteride 5 mg oral tablet levalbuterol 1.25 mg/3 mL for nebulization, 1.25 mg= 3 mL, NEB, tid, PRN magnesium oxide 400 mg (240 mg elemental magnesium) oral tablet, 400 mg= 1 tab, PO, Daily Metoprolol Succinate ER 50 mg oral tablet, extended release, 50 mg= 1 tab, PO, Daily montelukast 10 mg oral tablet pantoprazole 40 mg oral delayed release tablet, 40 mg= 1 tab, PO, Daily ProAir HFA 90 mcg/inh inhalation aerosol, 2 puff, inhaled, qid, PRN Systane Balance ophthalmic solution, 1 drop, both eyes, bid tamsulosin 0.4 mg oral capsule, 0.4 mg= 1 cap, PO, Daily telmisartan 40 mg oral tablet, 40 mg= 1 tab, PO, Daily zolpidem 5 mg oral tablet Allergies NKA Social History Smoking Status Former Smoker, quit > 1 yr Signature Line Electronic Signature on File Gabriel Brody MD Author Signature Dt/Tm: 04/19/2022 01:12 PM Supervisor [employer] Steven Norman [facility] [address], [address] [place] [address] AVIS Result Type: .Outpt Ltr Date of Service: April 19, 2022 13:12 EDT Authorization Status: Final Subject: Consult Note Author or Import Date: MD Brody Eugene J on April 19, 2022 13:12 EDT Verified By: MD Brody Eugene J on April 19, 2022 13:12 EDT Encounter info: [id number], [email or web address], Clinic, 04/19/2022 - 04/19/2022 Allergies Allergy/AdvReac Type Severity Reaction Status Date / Time No Known Drug Allergies Allergy Verified 04/20/22 10:10 Home Medications Medication Instructions Recorded Confirmed Type Oxygen Home #2 L 12/08/19 04/03/22 Rx vit C 250 mg-vit E 90 mg-zinc 40 1 tab PO BID 05/05/20 04/20/22 History mg-copper 1 [id number] capsule (PreserVision AREDS-2) nebulizers #1 ea 09/07/20 04/03/22 Rx aflibercept 2 mg/0.05 mL 0 mg intravitreal UD 06/03/21 04/20/22 History intravitreal solution for injection (Eylea) famotidine 20 mg tablet (Pepcid) 20 mg PO HS 06/03/21 04/20/22 History peg 400-propylene glycol (PF) 0.4 1 drp OPB BID 06/03/21 04/20/22 History %-0.3 % eye drops in a dropperette (Systane (PF)) telmisartan 40 mg tablet (Micardis) 40 mg PO QAM 06/03/21 04/20/22 History celecoxib 200 mg capsule (Celebrex) 200 mg PO QAM #90 caps 06/06/21 04/20/22 Rx metoprolol succinate 50 mg 50 mg PO QAM #90 tabs 08/29/21 04/20/22 Rx tablet,extended release 24 hr (Toprol XL) sildenafil 100 mg tablet (Viagra) 100 mg PO DAILY PRN sexual 09/11/21 04/20/22 Rx activity #30 tabs montelukast 10 mg tablet 10 mg PO HS #90 tabs 12/06/21 04/20/22 Rx (Singulair) Flutter Valve #1 ea 12/29/21 04/03/22 Rx albuterol sulfate 90 mcg/actuation 2 inh inhalation Q4H PRN shortness 12/29/21 04/20/22 Rx aerosol inhaler (Ventolin HFA) of breath #8.5 grams budesonide 160 mcg-glycopyr 9 2 inh inhalation BID COPD #10.7 12/29/21 04/20/22 Rx mcg-formot 4.8 mcg/actuation HFA grams inhaler (Breztri Aerosphere) guaifenesin 600 mg tablet, 600 mg PO BID PRN congestion #60 12/29/21 04/20/22 Rx extended release 12 hr (Mucinex) tabs levalbuterol HCl 1.25 mg/3 mL 1.25 mg (3 mL) inhalation Q4 PRN 12/29/21 04/20/22 Rx solution for nebulization (Xopenex) Shortness Of Breath #180 mL magnesium oxide 400 mg PO QAM #0 caps 01/16/22 04/20/22 History zolpidem 5 mg tablet 5 mg PO HS #30 tabs 01/16/22 04/20/22 Rx epinephrine 0.3 mg/0.3 mL 0.3 mg IM UD PRN bronchodilation 04/20/22 04/20/22 History injection, auto-injector (EpiPen 2-Marco Antonio) finasteride 5 mg tablet 5 mg PO QAM 04/20/22 04/20/22 History pantoprazole 40 mg tablet,delayed 40 mg PO QAM 04/20/22 04/20/22 History release (Protonix) potassium chloride 20 mEq 20 meq PO QAM 04/20/22 04/20/22 History tablet,extended release Past Med/Surg History Medical History (Updated 04/24/22 @ 07:30 by Mt Goldman MD) Anemia Aneurysm of infrarenal abdominal aorta 04/18/2022 - 7cm x 6.7 cm Atrial fibrillation dx 7 yrs ago BPH (benign prostatic hyperplasia) Carotid artery stenosis CKD (chronic kidney disease) COPD (chronic obstructive pulmonary disease) Erectile dysfunction GERD (gastroesophageal reflux disease) Hearing loss Hypertension Implantable loop recorder present dr jacobson - 3 yrs ago Insomnia Neutrophilic leukocytosis Nocturnal hypoxia o2 2l at hs Osteoarthritis Syncopal episodes summer 2020 Surgical History History of left hip replacement History of right hip replacement Hx of appendectomy Hx of colonoscopy Family History Other Coronary heart disease Diabetes Social History Smoking Status: Never smoker Tobacco Type: Cigarettes Age Started Using Tobacco: 18; packs per day: 1; Years Smoked: 66; Cigarettes Per Day: 20; Number of Years Since Quit: 6; Second Hand Exposure: No; Hx Alcohol Use: No Hx Substance Use: No Preferred Language: Sami Communication Ability: Effective Rope Rider Required: No Beliefs That Will Affect Care: None marital status: Current Living Situation: Spouse current occupational status: retired other: [employer] from [id number]. Discharge rank E4. No combat injury Feels Safe at Home: Yes Dental Care, Regularly: No Seatbelt Use: always Sunscreen Use: Yes Assistive Devices: Denture - Upper, Denture - Lower, Glasses and Hearing Aid - Bilateral
[~2022-04-24 07:39] MED LIST changes: -ACET-1256 PO; +CEFAZOLIN 2,000 MG/15 ML SYR IV SCH; -CLB/200 PO; -FLM4 PO; +LACTATED RINGER'S 1,000 ML IV SCH; -LISI-725 PO; +LR 15ML/HR IV SCH; -MAGN1TAB19 PO; -METO50TA8 PO; -PANT40TA PO; -POLYSOL4 OPB; -TIOT1AER INH; -VGR25 PO; -ZOLP5TAB6 PO
[2022-04-24] MEDS ORDERED: fentaNYL citrate 100 MCG/2 ML VIAL IV PRN (08:17)
[2022-04-24] MEDS ORDERED: ONDANSETRON INJ 2 MG/ML 2 ML VIAL IV PRN ×2 (08:17→12:46)
[2022-04-24] MEDS ORDERED: ePHEDrine sulfate 50 MG/ML AMP IV PRN (08:17)
[2022-04-24] MEDS ORDERED: HYDROmorphone INJ 1 MG/ML SYRINGE IV PRN (08:17)
[2022-04-24] MEDS ORDERED: LABETALOL HCL IV 5 MG/ML 20ML IV PRN (08:17)
[2022-04-24] MEDS ORDERED: PHENYLEPHRINE 100MCG/ML 5ML SYR IV PRN (08:17)
[2022-04-24] MEDS ORDERED: ATROPINE SULFATE 0.1 MG/ML 10ML SYR IV PRN (08:17)
[2022-04-24] MEDS ORDERED: ALBUMIN HUMAN 5% 12.5 GM/250 ML VIAL IV ONE (08:51)
[2022-04-24] MEDS ORDERED: KETAMINE 50 MG/5 ML SYRINGE ONE (09:31)
[2022-04-24] MEDS ORDERED: fentaNYL citrate 100 MCG/2 ML VIAL ONE ×2 (09:31→11:40)
--- NOTE | 2022-04-24 09:58 | History & Physical Bridge Note ---
Date of Service April 24, 2022 History & Physical Bridge Note I have examined the patient, reviewed the History & Physical and in the interval since the performance of the History & Physical I have noted the following changes of clinical significance: no changes noted
[2022-04-24] MEDS ORDERED: HYDROCORTISONE SOD SUCCINATE 100 MG/2 ML VIAL ONE (10:24)
[2022-04-24] MEDS ORDERED: ONDANSETRON INJ 2 MG/ML 2 ML VIAL ONE (10:40)
[2022-04-24] MEDS ORDERED: ROCURONIUM BROMIDE 10 MG/ML 5 ML VIAL IV ONE (10:40)
[2022-04-24] MEDS ORDERED: GLYCOPYRROLATE 0.2 MG/ML VIAL ONE (10:40)
[2022-04-24] MEDS ORDERED: LIDOCAINE 2% MPF LOCAL 5 ML VIAL INFIL ONE (10:40)
[2022-04-24] MEDS ORDERED: PROPOFOL IV EMULSION 10 MG/ML 20 ML VIAL IV ONE (10:40)
[2022-04-24] MEDS ORDERED: HEPARIN SOD (PORCINE) 1000 UNIT/ML ONE (10:47)
[2022-04-24] MEDS ORDERED: LABETALOL HCL IV 5 MG/ML 20ML IV ONE (10:56)
[2022-04-24] MEDS ORDERED: NEOSTIGMINE METHYLSULFATE 1 MG/ML 10ML VIAL ONE (11:00)
[2022-04-24] MEDS ORDERED: VISIPAQUE IV PRN (11:37)
--- NOTE | 2022-04-24 11:53 | Procedure Note ---
Angiogram Post Procedure Fluoroscopy Time (minutes): 11.4 Radiation (mGy): 451 Contrast: 194 Post Operative Report Pre & Post Diagnosis Operation Date: 04/24/22 10:20 Pre-Op Diagnosis: abdominal aortic aneurysm Post-Op Diagnosis: abdominal aortic aneurysm I identified the patient and participated in the time-out.: Yes Procedure Operation Date: 04/24/22 10:20 Actual Procedures p Percutaneous Endovascular Aortic Aneurysm Repair, Proximal Extension, ultrasound Localization of Bilateral Femoral arteries, Mechanical Closure of Bilateral Femoral Arteries(Bilateral) - Gabriel Brody MD Surgeon Gabriel Brody MD [employer] Lieutenant Rafael,PAC Estimated Blood Loss 25 Findings Consistent with Post-Op Diagnosis Specimens none Anesthesia Type General Complications none Disposition Accompanied Patient To Recovery: No Disposition: Recovery Room Indications This is an 81-year-old male who was noted to have an abdominal attic aneurysm 3.9 cm in 2017. He underwent an MRI recently which showed a 6.4 cm abdominal aortic aneurysm. He was a candidate for endovascular repair. This was recommended. I have discussed the risks options and benefits of the procedure with the patient. The patient understands the risks options and benefits and agrees to the procedure. Description of Procedure The patient was taken the operating room and placed in the supine position. Both groins were prepped draped in a sterile manner. A timeout was performed and the patient was identified. General anesthesia was then accomplished. Using ultrasound the right common femoral artery was imaged. It was patent with minimal plaque. Under ultrasound guidance a percutaneous puncture was made of the right common femoral artery. 5 Malawian sheath was inserted. Hand-injection was done through the 5 Malawian sheath which showed the puncture to be in the common femoral artery anteriorly. 2 Perclose devices were then placed in the right common femoral artery at 10 and 2 o'clock position. An 8 Malawian sheath was then inserted. On the left side the ultrasound was used to locate the left common femoral artery again which was patent with minimal plaque. Percutaneous puncture was made of the left common femoral artery had a 5 Malawian sheath inserted. Hand-injection was then performed which showed the puncture to also be in the common femoral artery anteriorly. 2 Perclose devices were then placed in the left common femoral artery at the 10 and 12 o'clock position. The tor tuosity in the artery made the device fire at 12:00 rather than 2. 8 Malawian sheath was inserted. 035 glide wires were then passed on both sides followed by a Kumpe catheter. Wires were exchanged for Charisse wires on both sides. The 8 Malawian sheath on the left side was removed and a 12 Malawian sheath was inserted. The right side the 8 Malawian sheath was removed and the puncture dilated with a 16 Malawian dilator followed by an 18 Malawian dry seal sheath. Pigtail was then passed up the left side. The device was then passed on the right side. We used a 28.5 x 14.5 x 16 cm C3 trunk. Arteriography was then performed which showed the renal arteries. The graft was placed just below the renal arteries and deployed. Angiogram was performed which showed the graft to be slightly high on the left side. The proximal portion of the graft was then retracted and the shaft was readjusted and then the graft reopened. Another angiogram showed the graft to be just below the renal arteries. Pigtail was then gently pulled out into the sac. The hooks were then released. A Charisse wire was then inserted into the pigtail. The 12 Malawian sheath was pulled out of the external iliac artery. Hand-injection was then performed. The bifurcation iliac was isolated. We decided to use a 16 mm x 14.5 x 14 cm long contralateral limb. The pigtail was removed. The dilator for 12 Malawian sheath was reinserted and she was advanced into the gate. The dilator was then removed. The contralateral limb was then inserted through the sheath. Prior to deploying the device the right limb was deployed. The 18 Malawian sheath was pulled down below the limb. We did do a hand-injection at that point to make sure that this limb was above the iliac bifurcation. It was located just above the bifurcation. We then deployed the contralateral limb after pulling the 12 Malawian sheath down into the external iliac. Once this was deployed we then used the Q50 balloon to dilate the proximal attachment site and overlaps to the left side. We then put the Q50 balloon of the right side and dilated the distal attachment site. Pigtail was reinserted through the left side. Completion angiogram showed the graft slig htly below the renal arteries with a type I endoleak. The distal limbs of the graft were well approximated with no endoleak's. The proximal attachment site with the hooks was then redilated with a Q50 balloon. Completion angios showed some improvement there is still small leak present. It was decided being that there was a couple millimeter gap between the renal artery and the graft that we would deploy a extension proximally. A 28.5 x 3 point 3 aortic cuff was then inserted. Angiogram was performed which marked the renal arteries. We then deployed the cuff which sat flush with the inferior margin of the left renal artery which was the lowest renal artery. This was then ballooned with a Q50 balloon. Pigtail was passed up to the super renal aorta. Completion angiogram at that time showed no evidence of type I or type II endoleak. Good seal was seen in the attachment sites. We then reinserted a 035 guidewire through the left sheath. The balloon was removed and the right side. The 12 Malawian puncture was then closed by tying the closure devices. The Pro-glide in the right side was then closed after removing the 18 Malawian sheath. These sutures were then securely tied also. Adequate and stasis was noted of both groins. Sterile dressings were applied.The patient left the operation room in satisfactory condition and tolerated the procedure well. All needle and sponge counts were correct at the end of the procedure. [facility] Pac assisted due to lack of resident availability and was necessary for positioning, draping, retraction, wound closure deep layers, s ubcutaneous tissue, and skin closure and was necessary for assisting with the case. I attest to the content of the Intraoperative Record and any orders documented therein. Any exceptions are noted below.
--- NOTE | 2022-04-24 12:12 | Anesthesiology Progress Note ---
Date of Service April 24, 2022 Anesthesia Post Procedure Vital Signs Vital Signs: Temp Pulse Pulse Resp BP BP Pulse Ox 04/24/22 12:00 72 18 134/48 L 98 04/24/22 11:50 36.5 C 78 20 119/54 L 99 04/24/22 08:32 04/24/22 08:16 36.7 C 83 22 177/95 H 141/98 H 97 O2 Del Method O2 Flow Rate 04/24/22 12:00 Oxymask 5 04/24/22 11:50 Oxymask 5 04/24/22 08:32 Room Air 04/24/22 08:16 Room Air Transfer of Care Handoff Completed per policy Notes Mental Status: alert / awake / arousable Patient Amnestic to Procedure: Yes Nausea / Vomiting: adequately controlled Pain: adequately controlled Airway Patency, RR, SpO2: stable & adequate BP & HR: stable & adequate Hydration State: stable & adequate Anesthetic Complications: no major complications apparent and Pt Satisfied with anesthetic care Notes: The patient is awake and comfortable. He was hypertensive preoperatively but his blood pressure has come down in the PACU. Sign out was given to the ICU attending.
[2022-04-24] MEDS ORDERED: NON-FORMULARY MEDICATION (Aflibercept [Eylea] 2 mg/0.05 mL Solution) INT VIT SCH (12:46)
[2022-04-24] MEDS ORDERED: NON-FORMULARY MEDICATION (Sildenafil [Viagra] 100 mg tablet) PO PRN (12:46)
[2022-04-24] MEDS ORDERED: LEVALBUTEROL HCL 1.25 MG/3 ML NEB INH PRN (12:46)
[2022-04-24] MEDS ORDERED: ALBUTEROL HFA 8 GM INHALER INH PRN (12:46)
[2022-04-24 13:04] LABS: Hematocrit (blood only) 34.6 % (40.1-51.0); Hemoglobin 11.3 g/dl (14.0-18.0)
[2022-04-24] MEDS ORDERED: EPINEPHrine INJ 1 MG/ML AMP IM PRN (13:06)
[2022-04-24] MEDS: D5W AND 1/2NSS 1,000 ML IV SCH ×2 (13:09→20:47)
--- NOTE | 2022-04-24 17:00 | Critical Care Consultation ---
Date of Consultation April 24, 2022 Assessment & Plan (1) Aneurysm of infrarenal abdominal aorta: Reason Critically Ill: 81-year-old male here with a PMHx significant for AAA, COPD, hypertension who presented for postoperative monitoring following bilateral femoral artery PEVAR. Neuro - [facility] ICU: [NEGATIVE] Sedation: Continue home zolpidem 5 mg nightly (insomnia). Analgesia: Percocet 5/325 mg every 4 hours as needed. Cardiac - * Atrial fibrillation: Home Toprol 50 mg every morning. Not on any anticoagul ation * Hypertension: Telmisartan 40 mg every morning. * AAA: Now status post PEVAR. Manage per vascular surgery recs. Respiratory - * COPD: Continue Home budesonide, Singulair, Breztri Aerosphere. As needed albuterol, Xopenex. * Patient currently saturating in the mid 90s on room air. * Nocturnal hypoxia: Continue 2 L nasal cannula oxygen nightly. GI - * Tolerating clear liquid diet well. Advance tomorrow before discharge. * GERD: Continue home Pepcid, Protonix, magnesium oxide. * As needed Zofran. RENAL/LYTES - [No significant electrolyte derangement.] * Home potassium chloride 20 mEq * Review morning BMP - * BPH: Continue home finasteride HEME - * Postoperative H&H stable. Hemoglobin 11.3. * Review a.m. H&H ID - * Continue perioperative Rocephin prophylaxis 2 g IV every 8 hours. INTEGUMENTARY - LINES/IV ACCESS - PIVs intact. DVT PROPHYLAXIS - Bilateral knee-high SCDs. Thank you for allowing us to be part of this patient's care. Please refer to Dr. Interiano's documentation for any further recommendations. (2) Insomnia: (3) Nocturnal hypoxia: (4) Atrial fibrillation: Supervising Physician Co-Signing Physician Notes Dr. Bernstein was the resident-physician during care of patient. I separately evaluated patient for lawler portions of the history and the exam. I was present during the critical portion of medical decision making, and I discussed the case with the resident. I generally agree with the findings and plan except for any additions/exceptions noted. 81-year-old male past medical history of COPD on 2 L nocturnal O2, hypertension, CKD, A. fib came to the hospital for bilateral femoral artery repair. In the OR patient got 1 L of fluid, approximate blood loss 150 mL. Blood pressure during the procedure was in the 130s over 80s. Signout was given to me by anesthesiologist. Patient's was in the room at the time of examination. He denied any issues with breathing. No chest pain, no headache, no nausea, no vomiting. Did complain of low back pain which is his chronic pain because of laying down. Constitutional: No acute distress HEENT: EOMI, PERRLA Respiratory system: Decreased air entry bilaterally, no wheeze, rhonchi, mild crackles bilateral lower lobes CVS: S1-S2 positive, no murmurs or gallops Abdomen: Soft, nontender, nondistended, positive bowel sounds x4 Extremities: +1 pulses bilaterally dorsalis pedis, +2 pulses bilaterally radialis, no cyanosis, no edema Neuro: Awake alert oriented x3 Psych: Normal mood and affect G/U: Positive Peña Groin dressing with no bruising. --Prophylaxis VTE: IPC's GI: Pantoprazole and Pepcid Lines: Left radial, peripheral Diet: Cardiac Plan: Monitor blood pressure. Try to keep SBP less than 180 Monitor H&H Continue with home blood pressure medication I have personally spent 35 minutes of critical care time in the direct management of this patient. This is a life/limb threatening event. This includes time spent evaluating patient, direct bedside care, chart review, placing orders, interpretation of diagnostic studies, discussion with consultants, patient, and/or family members regarding treatment decisions, as well as other required patient management activities. This time is exclusive of all separately billable procedures, and teaching time and separate from and in addition to any other critical care service time. History of Present Illness Attending Physician: Gabriel Brody MD History of Present Illness Ian is an 81-year-old man with a past medical history that includes COPD (former smoker x6 years-now on Breztri twice daily), hypertension, carotid artery stenosis, CKD, and atrial fibrillation, who presents to the ICU for postoperative monitoring s/p bilateral femoral artery PEVAR aneurysm repair for AAA this morning. According to postoperative surgical note, the patient tolerated the procedure well without complications. Subjectively, patient feels better following his procedure. He denies headache, chest pain, dizziness, shortness of breath or abdominal pain. He does report some back pain, which he has at baseline. Patient tolerated his clear liquid diet well, without nausea. He has no acute complaints or concerns at this time. is also present at the bedside. Allergies Allergy/AdvReac Type Severity Reaction Status Date / Time No Known Drug Allergies Allergy Verified 04/24/22 08:10 Home Medications Medication Instructions Recorded Confirmed Type Oxygen Home #2 L 12/08/19 04/03/22 Rx nebulizers #1 ea 09/07/20 04/03/22 Rx aflibercept 2 mg/0.05 mL 0 mg intravitreal UD 06/03/21 04/24/22 History intravitreal solution for injection (Eylea) famotidine 20 mg tablet (Pepcid) 20 mg PO HS 06/03/21 04/24/22 History peg 400-propylene glycol (PF) 0.4 1 drp OPB BID 06/03/21 04/24/22 History %-0.3 % eye drops in a dropperette (Systane (PF)) telmisartan 40 mg tablet (Micardis) 40 mg PO QAM 06/03/21 04/24/22 History celecoxib 200 mg capsule (Celebrex) 200 mg PO QAM #90 caps 06/06/21 04/24/22 Rx metoprolol succinate 50 mg 50 mg PO QAM #90 tabs 08/29/21 04/24/22 Rx tablet,extended release 24 hr (Toprol XL) sildenafil 100 mg tablet (Viagra) 100 mg PO DAILY PRN sexual 09/11/21 04/24/22 Rx activity #30 tabs montelukast 10 mg tablet 10 mg PO HS #90 tabs 12/06/21 04/24/22 Rx (Singulair) Flutter Valve #1 ea 12/29/21 04/03/22 Rx albuterol sulfate 90 mcg/actuation 2 inh inhalation Q4H PRN shortness 12/29/21 04/24/22 Rx aerosol inhaler (Ventolin HFA) of breath #8.5 grams budesonide 160 mcg-glycopyr 9 2 inh inhalation BID COPD #10.7 12/29/21 04/24/22 Rx mcg-formot 4.8 mcg/actuation HFA grams inhaler (Breztri Aerosphere) levalbuterol HCl 1.25 mg/3 mL 1.25 mg (3 mL) inhalation Q4 PRN 12/29/21 04/24/22 Rx solution for nebulization (Xopenex) Shortness Of Breath #180 mL magnesium oxide 400 mg PO QAM #0 caps 01/16/22 04/24/22 History zolpidem 5 mg tablet 5 mg PO HS #30 tabs 01/16/22 04/24/22 Rx epinephrine 0.3 mg/0.3 mL 0.3 mg IM UD PRN bronchodilation 04/20/22 04/24/22 History injection, auto-injector (EpiPen 2-Marco Antonio) finasteride 5 mg tablet 5 mg PO QAM 04/20/22 04/24/22 History pantoprazole 40 mg tablet,delayed 40 mg PO QAM 04/20/22 04/24/22 History release (Protonix) potassium chloride 20 mEq 20 meq PO QAM 04/20/22 04/24/22 History tablet,extended release [id number] 1 tab PO DAILY 04/24/22 04/24/22 History tablet (Multivitamin 50 Plus) Patient History Medical History (Updated 04/24/22 @ 17:29 by Salvador Bernstein MD) Anemia Aneurysm of infrarenal abdominal aorta 04/18/2022 - 7cm x 6.7 cm Atrial fibrillation dx 7 yrs ago BPH (benign prostatic hyperplasia) Carotid artery stenosis CKD (chronic kidney disease) COPD (chronic obstructive pulmonary disease) Erectile dysfunction GERD (gastroesophageal reflux disease) Hearing loss Hypertension Implantable loop recorder present dr jacobson - 3 yrs ago Insomnia Neutrophilic leukocytosis Nocturnal hypoxia o2 2l at hs Osteoarthritis Syncopal episodes summer 2020 Surgical History History of left hip replacement History of right hip replacement Hx of appendectomy Hx of colonoscopy Family History Other Coronary heart disease Diabetes Social History Smoking Status: Former smoker Tobacco Type: Cigarettes Age Started Using Tobacco: 18; packs per day: 1; Years Smoked: 66; Cigarettes Per Day: 20; Number of Years Since Quit: 6; Second Hand Exposure: No; Do You Dip or Chew Tobacco: No; Tobacco Cessation Education Requested by Patient: No Hx Alcohol Use: No Hx Substance Use: No Preferred Language: Filipino Communication Ability: Effective Field Crew Chief Required: No Beliefs That Will Affect Care: None marital status: Current Living Situation: Spouse current occupational status: retired Other Information That Helps Us Care for You: No other: [employer] from [id number]. Discharge rank E4. No combat injury Feels Safe at Home: Yes Safety Concerns: Feels Safe At This Time Dental Care, Regularly: No Seatbelt Use: always Sunscreen Use: Yes Assistive Devices: Nebulizer and Oxygen - at Night Review of Systems Review of Systems: All systems reviewed & are unremarkable except as noted in HPI & below Physical Exam Physical Exam: General: No acute distress. HEENT: Normocephalic, atraumatic. EOM intact. Good conjugate gaze. Nasal cannula currently set at 2 L O2. Moist mucosal membranes. Neck: Supple. No lymphadenopathy. Normal ROM. CV: Regular rate and rhythm. Normal S1 and S2. No murmurs gallops or rubs. No pedal edema. Respiratory: Normal respiratory effort. Lungs clear to auscultation bilaterally. No crackles, rhonchi, or wheezes. Abdomen: Soft, nondistended abdomen. No bruits heard on auscultation. No tenderness to deep palpation. Extremities: Bilateral knee-length SCDs. 2+ distal pulses bilaterally. Neuro: Alert and oriented x3. Results & Data Results & Data ([facility]) Vital Signs (Past 12 Hours) Vital Signs Temp Pulse Pulse Pulse Resp BP BP 04/24/22 16:00 76 04/24/22 15:10 76 19 04/24/22 15:00 79 22 04/24/22 15:00 162/94 H 04/24/22 14:50 78 26 H 04/24/22 14:40 76 22 04/24/22 14:30 75 26 H 04/24/22 14:20 76 25 H 04/24/22 14:10 74 20 04/24/22 14:00 73 16 04/24/22 14:00 166/84 H 04/24/22 13:50 71 22 04/24/22 13:40 71 15 04/24/22 13:30 71 19 04/24/22 13:20 72 20 04/24/22 13:10 75 16 04/24/22 13:00 74 19 04/24/22 13:00 158/106 H 04/24/22 13:46 74 12 04/24/22 13:00 36.6 C 74 22 04/24/22 12:53 73 04/24/22 12:53 160/78 H 04/24/22 12:10 69 16 04/24/22 12:00 72 18 04/24/22 11:50 36.5 C 78 20 04/24/22 08:32 04/24/22 08:16 36.7 C 83 22 177/95 H BP BP Pulse Ox O2 Del Method O2 Flow Rate 04/24/22 16:00 04/24/22 15:10 98 04/24/22 15:00 98 04/24/22 15:00 04/24/22 14:50 97 04/24/22 14:40 98 04/24/22 14:30 98 04/24/22 14:20 97 04/24/22 14:10 97 04/24/22 14:00 97 04/24/22 14:00 04/24/22 13:50 96 04/24/22 13:40 96 04/24/22 13:30 95 04/24/22 13:20 96 04/24/22 13:10 90 04/24/22 13:00 91 04/24/22 13:00 04/24/22 13:46 185/85 H 158/98 H 97 Nasal Cannula 2 04/24/22 13:00 186/84 H 158/88 H 97 Nasal Cannula 2 04/24/22 12:53 90 04/24/22 12:53 04/24/22 12:10 152/75 H 97 Oxymask 3 04/24/22 12:00 134/48 L 98 Oxymask 5 04/24/22 11:50 119/54 L 99 Oxymask 5 04/24/22 08:32 Room Air 04/24/22 08:16 141/98 H 97 Room Air Resident Activity Tracking Resident Involvement: Resident Care Provided Care Provided: Adult Hospital Medicine (1) Atrial fibrillation Atrial fibrillation type: paroxysmal Qualified Code(s): I48.0 - Paroxysmal atrial fibrillation
[2022-04-24] MEDS: ceFAZolin 2000MG 2,000 MG/15 ML SYR IV SCH (17:59)
--- NOTE | 2022-04-24 18:05 | Billing Data ---
Date of Service April 24, 2022 Coding Level of Care Code Critical Care 1st 30-74 mins Time Spent (min) 35
[2022-04-24] MEDS: oxyCODONE/ACETAMINOPHEN 5mg/325mg TAB PO PRN (18:07)
[2022-04-24 19:06] LABS: Albumin Globulin Ratio 1.5 (0.9-2); Albumin Level 3.5 gm/dl (3.4-5.0); BUN Creatinine Ratio 14.2 (10-20); Bilirubin,Total 0.3 mg/dl (0.2-1.0); Calcium 8.4 mg/dl (8.5-10.1); Creatinine Clr Calc Pharmacy 48.2 ml/min; Est GFR (African American) 64.4 ml/min; Est GFR (Non-African American) 55.6 ml/min; Globulin 2.4 gm/dl (2.5-4.0); Magnesium 1.7 mg/dl (1.7-2.4); Phosphorus 2.6 mg/dl (2.5-4.9); Potassium 4.2 mmol/L (3.5-5.1); Total Protein 5.9 gm/dl (6.0-8.3)
[2022-04-24] MEDS: BREZTRI AEROSPHERE INH SCH (20:48)
[2022-04-24] MEDS: ARTIFICIAL TEARS OPB SCH (20:48)
[2022-04-24] MEDS ORDERED: MONTELUKAST SODIUM 10 MG TABLET PO SCH (21:00)
[2022-04-24] MEDS ORDERED: ZOLPIDEM TARTRATE 5 MG TAB PO SCH (21:00)
[2022-04-24] MEDS ORDERED: FAMOTIDINE 20 MG TAB PO SCH (21:00)
[2022-04-25] MEDS: ceFAZolin 2000MG 2,000 MG/15 ML SYR IV SCH (02:11)
[2022-04-25] MEDS: oxyCODONE/ACETAMINOPHEN 5mg/325mg TAB PO PRN (02:47)
[2022-04-25 05:10] LABS: Hematocrit (blood only) 31.5 % (40.1-51.0)
[2022-04-25 05:34] LABS: BUN Creatinine Ratio 10.7 (10-20); Calcium 7.9 mg/dl (8.5-10.1); Creatinine Clr Calc Pharmacy 51.6 ml/min; Est GFR (Non-African American) 60.4 ml/min; Potassium 3.6 mmol/L (3.5-5.1)
[2022-04-25 08:07] LABS: Magnesium 1.7 mg/dl (1.7-2.4); Phosphorus 3.3 mg/dl (2.5-4.9)
[2022-04-25] MEDS ORDERED: PANTOprazole 40 MG TAB PO SCH (09:00)
[2022-04-25] MEDS ORDERED: CEROVITE ADV FORMULA TAB PO SCH (09:00)
[2022-04-25] MEDS ORDERED: TELMISARTAN 40 MG TAB PO SCH (09:00)
[2022-04-25] MEDS ORDERED: POTASSIUM CHLORIDE CRTAB 20 MEQ TABCR PO SCH (09:00)
[2022-04-25] MEDS ORDERED: CeleBREX 200 MG CAP PO SCH (09:00)
[2022-04-25] MEDS ORDERED: METOPROLOL SUCC 50MG EXT REL TAB PO SCH (09:00)
[2022-04-25] MEDS ORDERED: FINASTERIDE 5 MG TAB PO SCH (09:00)
[2022-04-25] MEDS ORDERED: MAGNESIUM OXIDE 400 MG TAB PO SCH (09:00)
[2022-04-25] MEDS ORDERED: AMIODARONE 360MG / 200ML D5W IV ONE (09:09)
--- NOTE | 2022-04-25 09:37 | Critical Care Progress Note ---
Date of Service April 25, 2022 Assessment & Plan (1) Aneurysm of infrarenal abdominal aorta: Plan: Reason Critically Ill: 81-year-old male here with a PMHx significant for AAA, COPD, hypertension who presented for postoperative monitoring following bilateral femoral artery PEVAR. Now POD1 s/p PEVAR. Neuro - [facility] ICU: [NEGATIVE] Sedation: Continue home zolpidem 5 mg nightly (insomnia). Analgesia: Percocet 5/325 mg every 4 hours as needed. Cardiac - * Atrial fibrillation: Home Toprol 50 mg every morning. * Hypertension: Telmisartan 40 mg every morning. Goal SBP<180 * AAA: Now status post PEVAR. Manage per vascular surgery recs. Respiratory - * COPD: Continue Home budesonide, Singulair, Breztri Aerosphere. As needed albuterol, Xopenex. * Patient currently saturating in the mid 90s on room air. * Nocturnal hypoxia: Continue 2 L nasal cannula oxygen nightly. GI - * Advance diet as tolerated * GERD: Continue home Pepcid, Protonix, magnesium oxide. * As needed Zofran. RENAL/LYTES - [No significant electrolyte derangement.] * Home potassium chloride 20 mEq * Review morning BMP - * BPH: Continue home finasteride HEME - * Mild drop in H&H. Likely secondary to IV fluids given to the patient. ID - * Not on any antibiotics INTEGUMENTARY - LINES/IV ACCESS - PIVs intact. DVT PROPHYLAXIS - Bilateral knee-high SCDs. Thank you for allowing us to be part of this patient's care. Please refer to Dr. Interiano's documentation for any further recommendations. (2) Insomnia: (3) Nocturnal hypoxia: (4) Atrial fibrillation: Admission and Anticipated Discharge Date Admission Date: April 24, 2022 Supervising Physician Co-Signing Physician Notes Dr. Bernstein was the resident-physician during care of patient. I separately evaluated patient for lawler portions of the history and the exam. I was present during the critical portion of medical decision making, and I discussed the case with the resident. I generally agree with the findings and plan except for any additions/exceptions noted. Patient seen and examined at bedside. No acute distress. Patient was in a good mood. Denies any chest pain, no shortness of breath, no headache, no nausea, no vomiting. Fair appetite Patient did have minimal bleeding from the left groin site when he stood up and went to the washroom. It was dressed well and there was no active bleeding appreciated on the physical exam Constitutional: No acute distress HEENT: EOMI, PERRLA Respiratory system: Decreased air entry bilaterally, no wheeze, rhonchi, mild crackles bilateral lower lobes CVS: S1-S2 positive, no murmurs or gallops Abdomen: Soft, nontender, nondistended, positive bowel sounds x4 Extremities: +1 pulses bilaterally dorsalis pedis, +2 pulses bilaterally ra dialis, no cyanosis, no edema Neuro: Awake alert oriented x3 Psych: Normal mood and affect G/U: Positive Peña Groin dressing with no bruising. --Prophylaxis VTE: IPC's GI: Pantoprazole and Pepcid Lines: Left radial DC date 04/25/2022, peripheral Diet: Cardiac Plan: In/out: +1.5 L, urine output [id number] Patient's hemoglobin dropped a little bit but he is also +1.5 L. Mild bleeding appreciated while moving on the left groin. No active bleeding on physical exam. Patient hemodynamically stable to be downgraded from ICU. Please note the above document was generated using voice recognition software. It may contain grammatical, syntax or spelling errors.Any formal questions or concerns about the content, text or information contained within the body of this dictation should be directly addressed to the provider for clarification. Subjective No acute events overnight. He reports mild SOB this morning. He also reports some hip/groin pain, which he has at baseline. Otherwise, he denies chest pain, headache, or nausea. Review of Systems Review of Systems: All systems reviewed & are unremarkable except as noted in HPI & below Physical Exam Physical Exam: General: No acute distress. HEENT: Normocephalic, atraumatic. EOM intact. Good conjugate gaze. Nasal cannula currently set at 2 L O2. Moist mucosal membranes. Neck: Supple. No lymphadenopathy. Normal ROM. CV: Regular rate and rhythm. Normal S1 and S2. No murmurs gallops or rubs. No pedal edema. Respiratory: Normal respiratory effort. Mild bibasilar crackles. Otherwise, no rhonchi or wheezes. Abdomen: Soft, nondistended abdomen. No bruits heard on auscultation. No tenderness to deep palpation. Extremities: Bilateral knee-length SCDs. 2+ distal pulses bilaterally. Neuro: Alert and oriented x3. Results & Data Results & Data ([facility]) Vital Signs (Past 12 Hours) Vital Signs Temp Pulse Pulse Resp BP BP BP 04/25/22 08:40 65 16 04/25/22 07:25 68 04/25/22 07:00 36.9 C 68 20 170/72 H 162/79 H 04/25/22 05:30 62 21 04/25/22 05:00 61 17 04/25/22 05:00 142/68 H 04/25/22 04:30 62 20 04/25/22 04:00 61 23 04/25/22 04:00 149/71 H 04/25/22 03:30 63 20 04/25/22 03:00 67 22 04/25/22 03:00 169/90 H 04/25/22 02:32 185/94 H 04/25/22 02:32 68 25 H 04/25/22 02:30 66 23 04/25/22 03:00 36.8 C 04/25/22 02:00 68 23 04/25/22 02:00 179/89 H 04/25/22 01:30 71 24 04/25/22 01:00 67 22 04/25/22 01:00 166/82 H 04/25/22 00:30 67 21 04/25/22 00:00 37.0 C 70 23 04/25/22 00:00 154/73 H 04/24/22 23:30 73 22 04/24/22 23:00 73 21 04/24/22 23:00 155/88 H 04/24/22 22:59 75 20 04/24/22 22:59 157/80 H 04/24/22 22:30 71 22 04/24/22 22:01 73 23 04/24/22 22:01 154/77 H 04/24/22 22:00 73 22 04/25/22 00:00 69 04/24/22 23:00 36.9 C Pulse Ox O2 Del Method O2 Flow Rate 04/25/22 08:40 93 Room Air 04/25/22 07:25 04/25/22 07:00 94 Room Air 04/25/22 05:30 99 04/25/22 05:00 98 04/25/22 05:00 04/25/22 04:30 97 04/25/22 04:00 98 04/25/22 04:00 04/25/22 03:30 98 04/25/22 03:00 98 Nasal Cannula 2 04/25/22 03:00 04/25/22 02:32 04/25/22 02:32 100 04/25/22 02:30 100 04/25/22 03:00 04/25/22 02:00 99 04/25/22 02:00 04/25/22 01:30 98 04/25/22 01:00 99 04/25/22 01:00 04/25/22 00:30 99 04/25/22 00:00 98 04/25/22 00:00 04/24/22 23:30 98 04/24/22 23:00 99 04/24/22 23:00 04/24/22 22:59 99 04/24/22 22:59 04/24/22 22:30 99 04/24/22 22:01 98 04/24/22 22:01 04/24/22 22:00 97 04/25/22 00:00 04/24/22 23:00 Resident Activity Tracking Resident Involvement: Resident Care Provided Care Provided: Adult Hospital Medicine (1) Atrial fibrillation Atrial fibrillation type: paroxysmal Qualified Code(s): I48.0 - Paroxysmal atrial fibrillation
[2022-04-25] MEDS: BREZTRI AEROSPHERE INH SCH (09:51)
[2022-04-25] MEDS: ARTIFICIAL TEARS OPB SCH (10:12)
--- NOTE | 2022-04-25 10:31 | Surgery Progress Note ---
Date of Service April 25, 2022 Assessment & Plan (1) S/P AAA repair using bifurcation graft: Plan: Pt doing well POD #1 after PEVAR. Also seen by Dr Brody today. Ok for d/c home, will see in office in 2 weeks. Admission and Anticipated Discharge Date Admission Date: April 24, 2022 Subjective 81 yo m POD #1 after PEVAR, seen in f/u today. Pt with mild bleeding from R groin today when he got up to go to BR, but this was controlled with pressure. No further bleeding.Pt states feeling ok, janice little tired. No chest pain, SOB, abd pain, N/V, leg pain, other complaints. Review of Systems Review of Systems: All systems reviewed & are unremarkable except as noted in HPI & below Physical Exam Constitutional: WD/WN, vitals as above Respiratory: normal respiratory effort, lungs clear to auscultation Auscultation: + diminished lung sounds Cardiovascular: Rate/Rhythm: regular rate and regular rhythm Vessels: femoral pulses present, posterior tibial pulses present, dorsalis pedis pulses present and radial pulses present Extremities: normal capillary refill; no edema Gastrointestinal (Abdomen): Inspection/Auscultation: abdomen normal to inspection and normal bowel sounds Percussion/Palpation: abdomen soft; abdomen nontender Musculoskeletal: no cyanosis or clubbing, extremities motor strength 5/5 Skin: no rashes, warm and dry + incision (BL groin punctures C/D/I, dressings dry, mild local ecchymosis. soft) Neurologic: moves all extremities and awake; no focal motor deficits and not confused Psychiatric: A+Ox3, euthymic affect Results & Data ([facility]) Vital Signs (Past 12 Hours) Vital Signs Temp Pulse Pulse Resp BP BP BP 04/25/22 08:40 65 16 04/25/22 07:25 68 04/25/22 07:00 36.9 C 68 20 170/72 H 162/79 H 04/25/22 05:30 62 21 04/25/22 05:00 61 17 04/25/22 05:00 142/68 H 04/25/22 04:30 62 20 04/25/22 04:00 61 23 04/25/22 04:00 149/71 H 04/25/22 03:30 63 20 04/25/22 03:00 67 22 04/25/22 03:00 169/90 H 04/25/22 02:32 185/94 H 04/25/22 02:32 68 25 H 04/25/22 02:30 66 23 04/25/22 03:00 36.8 C 04/25/22 02:00 68 23 04/25/22 02:00 179/89 H 04/25/22 01:30 71 24 04/25/22 01:00 67 22 04/25/22 01:00 166/82 H 04/25/22 00:30 67 21 04/25/22 00:00 37.0 C 70 23 04/25/22 00:00 154/73 H 04/24/22 23:30 73 22 04/24/22 23:00 73 21 04/24/22 23:00 155/88 H 04/24/22 22:59 75 20 04/24/22 22:59 157/80 H 04/24/22 22:30 71 22 04/25/22 00:00 69 04/24/22 23:00 36.9 C Pulse Ox O2 Del Method O2 Flow Rate 04/25/22 08:40 93 Room Air 04/25/22 07:25 04/25/22 07:00 94 Room Air 04/25/22 05:30 99 04/25/22 05:00 98 04/25/22 05:00 04/25/22 04:30 97 04/25/22 04:00 98 04/25/22 04:00 04/25/22 03:30 98 04/25/22 03:00 98 Nasal Cannula 2 04/25/22 03:00 04/25/22 02:32 04/25/22 02:32 100 04/25/22 02:30 100 04/25/22 03:00 04/25/22 02:00 99 04/25/22 02:00 04/25/22 01:30 98 04/25/22 01:00 99 04/25/22 01:00 04/25/22 00:30 99 04/25/22 00:00 98 04/25/22 00:00 04/24/22 23:30 98 04/24/22 23:00 99 04/24/22 23:00 04/24/22 22:59 99 04/24/22 22:59 04/24/22 22:30 99 04/25/22 00:00 04/24/22 23:00
--- NOTE | 2022-04-25 10:59 | Billing Data ---
Date of Service April 25, 2022 Coding Level of Care Code 31295 Subseq Hosp Care Lvl 2
--- NOTE | 2022-04-25 11:07 | Discharge Summary ---
Date of Service April 25, 2022 Admission HPI Per Admitting Provider Chief Complaint rm#6 aneurysm meeting intervention criteria, instructed no exertion, no lifting more than 5-10 lbs History of Present Illness I the pleasure of seeing Ian today for evaluation of his abdominal aortic aneurysm. He is an 81-year-old gentleman who has a known aneurysm which was 3.9 cm in 2017. He is complaining of chronic back pain for which she had an MRI. MRI showed enlargement of the aneurysm sac. He has a loop recorder has been in for over 2-1/2 years. He is hypertensive. He also has COPD. He recently underwent carotid ultrasound which showed a 56% narrowing of his carotid ar teries. He is presently undergoing injections for macular degeneration. He does have a 58-year smoking history and quit 6 years ago. He denies any claudication. Denies any symptoms of cerebrovascular insufficiency. Review of Systems 10 systems were reviewed. Positive findings are cough wheezing shortness of breath nausea heartburn and diarrhea on occasion. Rest of his positive findings are in the HPI. Physical Exam Vitals & Measurements HR: 74 (Monitored) BP: 162/90 SpO2: 94% WT: 83.9 kg Input and Output - Last 24 hours (Last 8 hours) No I/O Data Found: On physical exam patient is awake alert and oriented x3. His blood pressure is 162/90. He is in no apparent distress. Radials carotids and superficial temporal arteries are +2 bilaterally. There is a left carotid bruit audible. His lungs are clear with slightly distant breath sounds. Heart had a regular rate and rhythm. Abdominal exam is benign there is a pulsatile mass in the midepigastrium. Femorals are +2 bilaterally. Pedal's are +1 bilaterally. There is normal capillary refill in both feet. Neurologic exam is grossly intact motor and sensory function. He did have a CT angiogram prior to being seen today which showed a 6.8 cm abdominal aortic aneurysm. The neck itself is approximately 15 mm in length. Assessment/Plan 1. AAA (abdominal aortic aneurysm) At this point we recommended repair of abdominal aortic aneurysm due to the increase in size of the last 4 years and the 6.8 size of the aneurysm itself. With a 15 mm long neck he is a candidate for an endovascular repair. We went over the risks options and benefits and he is agreeable to go ahead with this procedure. We will obtain a preop echo to evaluate his cardiac function prior to surgery. We will keep you informed as to his results. Thank you very much for letting us participate in the care of this patient. Sincerely, Sonido Brody MD Ordered: Echo TransTHORacic TTE Complete Problem List/Past Medical History Ongoing AAA (abdominal aortic aneurysm) Arthritis BPH (benign prostatic hyperplasia) COPD (chronic obstructive pulmonary disease) GERD (gastroesophageal reflux disease) HTN (hypertension) Skin lesion Historical No qualifying data Procedure/Surgical History Shave biopsy of skin (10/13/2020) Shave biopsy of skin (10/13/2020) Shave biopsy and cauterisation of skin (05/09/2018) Colonoscopy (06/20/2017) Hip replacement Medications Inpatient No active inpatient medications Home Breztri Aerosphere inhalation aerosol celecoxib 200 mg oral capsule, 200 mg= 1 cap, PO, Daily famotidine 20 mg oral tablet, 20 mg= 1 tab, PO, qhs finasteride 5 mg oral tablet levalbuterol 1.25 mg/3 mL for nebulization, 1.25 mg= 3 mL, NEB, tid, PRN magnesium oxide 400 mg (240 mg elemental magnesium) oral tablet, 400 mg= 1 tab, PO, Daily Metoprolol Succinate ER 50 mg oral tablet, extended release, 50 mg= 1 tab, PO, Daily montelukast 10 mg oral tablet pantoprazole 40 mg oral delayed release tablet, 40 mg= 1 tab, PO, Daily ProAir HFA 90 mcg/inh inhalation aerosol, 2 puff, inhaled, qid, PRN Systane Balance ophthalmic solution, 1 drop, both eyes, bid tamsulosin 0.4 mg oral capsule, 0.4 mg= 1 cap, PO, Daily telmisartan 40 mg oral tablet, 40 mg= 1 tab, PO, Daily zolpidem 5 mg oral tablet Allergies NKA Social History Smoking Status Former Smoker, quit > 1 yr Signature Line Electronic Signature on File Gabriel Brody MD Author Signature Dt/Tm: 04/19/2022 01:12 PM Broker In Charge Steven Norman [facility] [address], [address] [place] [address] [place] Result Type: .Outpt Ltr Date of Service: April 19, 2022 13:12 EDT Authorization Status: Final Subject: Consult Note Author or Import Date: MD Brody Eugene J on April 19, 2022 13:12 EDT Verified By: MD Brody Eugene J on April 19, 2022 13:12 EDT Encounter info: [id number], [place] [id number], Clinic, 04/19/2022 - 04/19/2022 Admission Exam Per Admitting Provider On physical exam patient is awake alert and oriented x3. His blood pressure is 162/90. He is in no apparent distress. Radials carotids and superficial temporal arteries are +2 bilaterally. There is a left carotid bruit audible. His lungs are clear with slightly distant breath sounds. Heart had a regular rate and rhythm. Abdominal exam is benign there is a pulsatile mass in the midepigastrium. Femorals are +2 bilaterally. Pedal's are +1 bilaterally. There is normal capillary refill in both feet. Neurologic exam is grossly intact motor and sensory function. He did have a CT angiogram prior to being seen today which showed a 6.8 cm abdominal aortic aneurysm. The neck itself is approximately 15 mm in length. Principal Diagnosis 1. s/p PEVAR 2. AAA Discharge Exam Constitutional WD/WN, vitals as above Respiratory normal respiratory effort, lungs clear to auscultation Auscultation: + diminished lung sounds Cardiovascular Rate/Rhythm: regular rate and regular rhythm Vessels: femoral pulses present, posterior tibial pulses present, dorsalis pedis pulses present and radial pulses present Extremities: normal capillary refill; no edema Gastrointestinal (Abdomen) Inspection/Auscultation: abdomen normal to inspection and normal bowel sounds Percussion/Palpation: abdomen soft; abdomen nontender Musculoskeletal no cyanosis or clubbing, extremities motor strength 5/5 Skin no rashes, warm and dry + incision (BL groin punctures C/D/I, dressings dry, mild local ecchymosis. 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 Also seen by Dr Brody today. Ok for d/c home, will see in office in 2 weeks. Total Time Total Time Spent Total Time Spent (In Minutes): 0 Discharge Plan Discharge Items Patient Disposition: Home - Self-Care Reason For Visit: Abdominal Aortic Aneurysm without Rupture Discharge Diagnosis: 1. S/P Percutaneous Endovascular Abdominal Aortic Aneruysm Repair 2. Abdominal Aortic Aneurysm Condition on Discharge: Good Activity: Per Instructions section Non-emergency contact: Primary Care Provider and Surgeon Call non-emergency contact if: you have any medication questions, your pain is not controlled, your pain is concerning for you, you have a fever, your wound has increased redness and your wound has increased drainage Follow-up/Referrals: Malika Freed CRNP [Primary Care Provider] - (Follow up with PCP within 2 weeks) Kristie Courtney PA-C [Physician Swimming Coach] - Gabriel Brody MD [Physician] - (Follow up with Dr Brody or Kristie Courtney PA-C, in 2 weeks.) Diet: Heart Healthy Addtl Attending Provider Instructions: SPECIAL CARE INSTRUCTIONS: Medications: * Continue to take your medications as directed. Incision/Puncture Site Care: * You will have an incision or puncture in each of your groins. Liquid glue will be used to seal your incisions/puncture site. This will lift off as the incisions/puncture sites heal. * If Liquid glue is not used, there will be small dressings covering your incisions. After you get home, you may remove the dressings and shower - allowing the warm soapy water to run over it. * Be sure to dry the sites well and keep them dry. * DO NOT SOAK IN A TUB/POOL/etc. UNTIL ALL SURGICAL SITES ARE HEALED. DO NOT REMOVE THE GLUE UNTIL THE INCISIONS HEAL. Restrictions: * Limit yourself to heavy equipment technician activity for the first week. * You may walk and go up and down steps. * Avoid excessive bending or movement at the level of the incisions or punctures. Risks and Possible Complications: * Infection/Drainage/Bleeding - Drainage or bleeding from the incisions/puncture site should be minimal. If you have excessive bleeding or drainage, call our office ([phone]) right away. * Pain/Numbness - You may experience some mild pain or soreness at your incision sites. You may also have some numbness around the incisions or into the insides of your thighs. Bruising is normal and should resolve within 2 weeks. * Changes in Appetite or Bowel Habits - Mostly related to anesthesia and pain medication, some patients have reported decreased appetite and/or problems with constipation. These symptoms usually improve over a few weeks. Remembering to take an [id number] stool softener, as directed, will help you to avoid constipation. Call our office and seek emergent treatment if you develop: * Fever or chills * Have a temperature greater than 101 degrees F * Any redness or purulent drainage from your incisions or punctures * Severe abdominal, chest or back pain SKIN IRRITATION: * You may experience some redness and/or swelling in the area where radiation was administered. If any skin irritation occurs, please contact your family physician. You will be receiving a call from the Vascular Surgery Nurse after you are discharged. FOLLOW UP VISIT: It is important for you to keep your follow up appointments with your medical provider. Keep any scheduled doctor appointments. Pending Studies at Discharge: No Stand-Alone Forms: My [facility] People to Remember, Smoking Cessation Medications and DC Order Prescriptions: New oxycodone-acetaminophen [Percocet] 5-325 mg Tablet 1 - 2 tab PO TID PRN (Reason: pain) Qty: 15 0RF docusate sodium [Colace] 100 mg capsule 100 mg PO BID Qty: 60 0RF Continued (DME) Oxygen Home Liters Per Minute See Rx Instructions .ROUTE .MEDSUPPLY Qty: 2 0RF Rx Instructions: Home O2: 2LPM via Nasal cannula during sleep. Provide w/ humidification celecoxib [Celebrex] 200 mg capsule 200 mg PO QAM Qty: 90 3RF metoprolol succinate [Toprol XL] 50 mg tablet extended release 24 hr 50 mg PO QAM Qty: 90 3RF sildenafil [Viagra] 100 mg tablet 100 mg PO DAILY PRN (Reason: sexual activity) Qty: 30 11RF Rx Instructions: administer 30 minutes to 4 hours before activity montelukast [Singulair] 10 mg tablet 10 mg PO HS Qty: 90 1RF magnesium oxide 400 mg magnesium capsule 400 mg PO QAM Qty: 0 Breztri Aerosphere 160-9-4.8 mcg/actuation HFA aerosol inhaler 2 inh inhalation BID Qty: 10.7 6RF albuterol sulfate [Ventolin HFA] 90 mcg/actuation HFA aerosol inhaler 2 inh inhalation Q4H PRN (Reason: shortness of breath) Qty: 8.5 3RF levalbuterol HCl [Xopenex] 1.25 mg/3 mL solution for nebulization 1.25 mg INHALATION Q4 PRN (Reason: Shortness Of Breath) Qty: 180 5RF (DME) Flutter Valve Device See Rx Instructions .MEDSUPPLY Qty: 1 0RF Rx Instructions: Use it every 6 hours when awake. (DME) nebulizers Misc See Rx Instructions .ROUTE .MEDSUPPLY Qty: 1 0RF Rx Instructions: Q 4HR WITH TUBING & SUPPLIES - DX: COPD zolpidem 5 mg tablet 5 mg PO HS Qty: 30 5RF potassium chloride 20 mEq Tablet Extended Release 20 meq PO QAM pantoprazole [Protonix] 40 mg tablet,delayed release (DR/EC) 40 mg PO QAM epinephrine [EpiPen 2-[place]] 0.3 mg/0.3 mL auto-injector 0.3 mg IM UD PRN (Reason: bronchodilation) Rx Instructions: 0.3 mg IM Use as Directed PRN; until response carried when did allergy injections finasteride 5 mg tablet 5 mg PO QAM Multivitamin 50 Plus Tablet 1 tab PO DAILY famotidine [Pepcid] 20 mg Tablet 20 mg PO HS Systane (PF) 0.4-0.3 % Dropperette 1 drp OPB BID telmisartan [Micardis] 40 mg tablet 40 mg PO QAM Eylea 2 mg/0.05 mL Solution 0 mg INTRAVITREAL UD Rx Instructions: takes every 6 weeks for macular degeneration Discharge Orders: Discharge Order (Routine); Ordered 04/25/22 Ordered By: Kristie Courtney Admission Data Admit Date/Time: 04/24/22 09:58 Attending Provider: Gabriel Brody Admit Provider: Gabriel Brody Primary Care Provider: Malika Freed Other Providers: Branden Mendez ; Landon Chowdhury ; Clarence Chang ; Danish Velazquez ; Marquis Padron ; Manuel Lemus ; Alfred Interiano ; Jose Lambert ; Norma Warren
== END 2022-04-25 12:45 | disposition home or self-care (01) | DRG 269 ==
LOC: ASU 07:39 → 1E 09:58

== ENCOUNTER 2022-04-26 03:14 | Inpatient (IN) ==
[2022-04-26 03:43] LABS: Basophils # (auto) 0.03 K/uL (0-0.2); Basophils % (auto) 0.2 %; Eosinophils # (auto) 0.26 K/uL (0-0.50); Hematocrit (blood only) 32.7 % (40.1-51.0); Hemoglobin 10.4 g/dl (14.0-18.0); Immature Granulocytes # (auto) 0.05 K/uL (0.00-0.02); Immature Granulocytes % (auto) 0.4 %; Lymphocytes % (auto) 8.4 %; Mean Corpuscular Hemoglobin 30.1 pg (25.0-34.0); Mean Corpuscular Hgb Conc 31.8 g/dL (32.0-36.0); Mean Corpuscular Volume 94.8 fL (80.0-100.0); Mean Platelet Volume 9.5 fL (9.4-12.4); Monocytes % (auto) 8.4 %; Neutrophils % (auto) 80.6 %; Platelet Count 133 K/uL (130-400); RDW Coefficient of Variation 13.2 % (11.5-14.5); RDW Standard Deviation 45.7 fL (36.4-46.3); Red Blood Count 3.45 M/uL (4.63-6.08); White Blood Count 13.04 K/ul (4.8-10.8)
--- NOTE | 2022-04-26 03:43 | Emergency Department Note ---
History of Present Illness General Chief complaint: Shortness of Breath/Dyspnea Stated complaint: SOB Time Seen by Provider: 04/26/22 03:25 Source: patient and EMS Mode of arrival: EMS Limitations: no limitations History of Present Illness Provider complaint: Fever, shortness of breath Onset (ago): hour(s) 1 Treatments prior to arrival: none This is an 81-year-old male presents emergency department due to concern for increased shortness of breath and fever. Patient was just discharged yesterday after having repair of a AAA with an endovascular stent from Dr. Brody. Patient states he felt very weak at time of discharge but did not have a fever. Patient does wear oxygen chronically due to a prior history of tobacco abuse and underlying COPD. Patient denies any worsening cough. He denies any abdominal pain, nausea, vomiting, or diarrhea. He denies any numbness or tingling in the legs. Patient denies chest pain. Patient states he felt weak when he woke up and tried to go to the bathroom. Patient states he does not take any blood thinners. Pt seen during a time of high acuity and national emergency pandemic while wearing PPE. Home Medications Medication Instructions Recorded Confirmed Type Oxygen Home #2 L 12/08/19 04/26/22 Rx nebulizers #1 ea 09/07/20 04/26/22 Rx aflibercept 2 mg/0.05 mL 0 mg intravitreal UD 06/03/21 04/26/22 History intravitreal solution for injection (Eylea) famotidine 20 mg tablet (Pepcid) 20 mg PO HS 06/03/21 04/26/22 History peg 400-propylene glycol (PF) 0.4 1 drp OPB BID 06/03/21 04/26/22 History %-0.3 % eye drops in a dropperette (Systane (PF)) telmisartan 40 mg tablet (Micardis) 40 mg PO QAM 06/03/21 04/26/22 History celecoxib 200 mg capsule (Celebrex) 200 mg PO QAM #90 caps 06/06/21 04/26/22 Rx metoprolol succinate 50 mg 50 mg PO QAM #90 tabs 08/29/21 04/26/22 Rx tablet,extended release 24 hr (Toprol XL) sildenafil 100 mg tablet (Viagra) 100 mg PO DAILY PRN sexual 09/11/21 04/26/22 Rx activity #30 tabs montelukast 10 mg tablet 10 mg PO HS #90 tabs 12/06/21 04/26/22 Rx (Singulair) Flutter Valve #1 ea 12/29/21 04/26/22 Rx albuterol sulfate 90 mcg/actuation 2 inh inhalation Q4H PRN shortness 12/29/21 04/26/22 Rx aerosol inhaler (Ventolin HFA) of breath #8.5 grams budesonide 160 mcg-glycopyr 9 2 inh inhalation BID COPD #10.7 12/29/21 04/26/22 Rx mcg-formot 4.8 mcg/actuation HFA grams inhaler (Breztri Aerosphere) levalbuterol HCl 1.25 mg/3 mL 1.25 mg (3 mL) inhalation Q4 PRN 12/29/21 04/26/22 Rx solution for nebulization (Xopenex) Shortness Of Breath #180 mL magnesium oxide 400 mg PO QAM #0 caps 01/16/22 04/26/22 History zolpidem 5 mg tablet 5 mg PO HS #30 tabs 01/16/22 04/26/22 Rx epinephrine 0.3 mg/0.3 mL 0.3 mg IM UD PRN bronchodilation 04/20/22 04/26/22 History injection, auto-injector (EpiPen 2-Marco [place]) finasteride 5 mg tablet 5 mg PO QAM 04/20/22 04/26/22 History pantoprazole 40 mg tablet,delayed 40 mg PO QAM 04/20/22 04/26/22 History release (Protonix) potassium chloride 20 mEq 20 meq PO QAM 04/20/22 04/26/22 History tablet,extended release [id number] 1 tab PO DAILY 04/24/22 04/26/22 History tablet (Multivitamin 50 Plus) docusate sodium 100 mg capsule 100 mg PO BID constipation #60 caps 04/25/22 04/26/22 Rx (Colace) oxycodone-acetaminophen 5 mg-325 1 - 2 tab PO TID PRN pain #15 tabs 04/25/22 04/26/22 Rx mg tablet (Percocet) Allergies Allergy/AdvReac Type Severity Reaction Status Date / Time No Known Drug Allergies Allergy Verified 04/24/22 08:10 Past Med/Surg History Medical History Anemia Aneurysm of infrarenal abdominal aorta 04/18/2022 - 7cm x 6.7 cm Atrial fibrillation dx 7 yrs ago BPH (benign prostatic hyperplasia) Carotid artery stenosis CKD (chronic kidney disease) COPD (chronic obstructive pulmonary disease) Dementia Erectile dysfunction GERD (gastroesophageal reflux disease) Hearing loss Hypertension Implantable loop recorder present dr jacobson - 3 yrs ago Insomnia Neutrophilic leukocytosis Nocturnal hypoxia o2 2l at hs Osteoarthritis Syncopal episodes summer 2020 Surgical History History of left hip replacement History of right hip replacement Hx of appendectomy Hx of colonoscopy S/P AAA repair using bifurcation graft Family History Other Coronary heart disease Diabetes Social History Smoking Status: Former smoker Tobacco Type: Cigarettes Age Started Using Tobacco: 18; packs per day: 1; Years Smoked: 66; Cigarettes Per Day: 20; Smoking End Date: 2014; Second Hand Exposure: No; Do You Dip or Chew Tobacco: No; Tobacco Cessation Education Requested by Patient: No Hx Alcohol Use: No Hx Substance Use: No Preferred Language: Maori Communication Ability: Effective Millwright Helper Required: No Beliefs That Will Affect Care: None marital status: Current Living Situation: Spouse current occupational status: retired How many Children do You have: 1 other: [employer] from [id number]. Discharge rank E4. No combat injury Feels Safe at Home: Yes Safety Concerns: Feels Safe At This Time Dental Care, Regularly: No Seatbelt Use: always Sunscreen Use: Yes Assistive Devices: None Review of Systems A total of 10 systems reviewed and were otherwise negative All systems reviewed & are unremarkable except as noted in HPI & below Physical Exam Vital Signs Vital Signs - 24 hr 04/26/22 22:30 04/26/22 23:00 04/26/22 23:30 Temperature Temperature Source Pulse Rate [Finger] Pulse Rate [Right Brachial] Respiratory Rate 16 16 16 Respiratory Effort / Characteristics Non-Labored Spontaneous Short of Breath SOB on Exertion Non-Labored Spontaneous Short of Breath SOB on Exertion Non-Labored Spontaneous Short of Breath SOB on Exertion Respiratory Depth Blood Pressure [Right Arm] Blood Pressure Mean [Right Arm] Blood Pressure Position [Right Arm] Pulse Oximetry 96 96 96 Oxygen Delivery Method Nasal Cannula Nasal Cannula Nasal Cannula Oxygen Flow Rate 2 2 2 04/27/22 00:00 04/27/22 00:30 04/27/22 01:00 Temperature Temperature Source Pulse Rate [Finger] Pulse Rate [Right Brachial] Respiratory Rate 16 16 18 Respiratory Effort / Characteristics Non-Labored Spontaneous Short of Breath SOB on Exertion Non-Labored Spontaneous Short of Breath SOB on Exertion Non-Labored Spontaneous Short of Breath SOB on Exertion Respiratory Depth Blood Pressure [Right Arm] Blood Pressure Mean [Right Arm] Blood Pressure Position [Right Arm] Pulse Oximetry 96 96 95 Oxygen Delivery Method Nasal Cannula Nasal Cannula Nasal Cannula Oxygen Flow Rate 2 2 2 04/27/22 01:30 04/27/22 02:00 04/27/22 02:30 Temperature Temperature Source Pulse Rate [Finger] Pulse Rate [Right Brachial] Respiratory Rate 18 16 18 Respiratory Effort / Characteristics Non-Labored Spontaneous Short of Breath SOB on Exertion Non-Labored Spontaneous Short of Breath SOB on Exertion Non-Labored Spontaneous Short of Breath SOB on Exertion Respiratory Depth Blood Pressure [Right Arm] Blood Pressure Mean [Right Arm] Blood Pressure Position [Right Arm] Pulse Oximetry 95 95 95 Oxygen Delivery Method Nasal Cannula Nasal Cannula Nasal Cannula Oxygen Flow Rate 2 2 2 04/27/22 03:00 04/27/22 03:30 04/27/22 04:00 Temperature Temperature Source Pulse Rate [Finger] Pulse Rate [Right Brachial] Respiratory Rate 18 16 16 Respiratory Effort / Characteristics Non-Labored Spontaneous Short of Breath SOB on Exertion Non-Labored Spontaneous Short of Breath SOB on Exertion Non-Labored Spontaneous Short of Breath SOB on Exertion Respiratory Depth Blood Pressure [Right Arm] Blood Pressure Mean [Right Arm] Blood Pressure Position [Right Arm] Pulse Oximetry 97 95 96 Oxygen Delivery Method Nasal Cannula Nasal Cannula Nasal Cannula Oxygen Flow Rate 2 2 2 04/27/22 04:30 04/27/22 05:00 04/27/22 05:30 Temperature Temperature Source Pulse Rate [Finger] Pulse Rate [Right Brachial] Respiratory Rate 16 16 16 Respiratory Effort / Characteristics Non-Labored Spontaneous Short of Breath SOB on Exertion Non-Labored Spontaneous Short of Breath SOB on Exertion Non-Labored Spontaneous Short of Breath SOB on Exertion Respiratory Depth Blood Pressure [Right Arm] Blood Pressure Mean [Right Arm] Blood Pressure Position [Right Arm] Pulse Oximetry 95 95 95 Oxygen Delivery Method Nasal Cannula Nasal Cannula Nasal Cannula Oxygen Flow Rate 2 2 2 04/27/22 06:02 04/27/22 05:08 04/27/22 06:33 Temperature 37.5 C Temperature Source Oral Pulse Rate [Finger] 83 Pulse Rate [Right Brachial] Respiratory Rate 16 18 16 Respiratory Effort / Characteristics Non-Labored Spontaneous Short of Breath SOB on Exertion Non-Labored Spontaneous Short of Breath SOB on Exertion Respiratory Depth Blood Pressure [Right Arm] 152/81 H Blood Pressure Mean [Right Arm] 104 Blood Pressure Position [Right Arm] Lying Pulse Oximetry 96 97 96 Oxygen Delivery Method Nasal Cannula Nasal Cannula Nasal Cannula Oxygen Flow Rate 2 2 2 04/27/22 07:22 04/27/22 07:25 04/27/22 10:50 Temperature 38.6 C H Temperature Source Oral Pulse Rate [Finger] 87 Pulse Rate [Right Brachial] 88 Respiratory Rate 18 18 Respiratory Effort / Characteristics Non-Labored Spontaneous Non-Labored Respiratory Depth Normal Blood Pressure [Right Arm] 161/80 H Blood Pressure Mean [Right Arm] 107 Blood Pressure Position [Right Arm] Semi-fowlers Pulse Oximetry 94 97 Oxygen Delivery Method Nasal Cannula Nasal Cannula Nasal Cannula Oxygen Flow Rate 2 2 2 04/27/22 16:00 04/27/22 07:00 04/27/22 07:30 Temperature 36.5 C Temperature Source Oral Pulse Rate [Finger] Pulse Rate [Right Brachial] 76 Respiratory Rate 20 20 20 Respiratory Effort / Characteristics Non-Labored Non-Labored Respiratory Depth Blood Pressure [Right Arm] 153/68 H Blood Pressure Mean [Right Arm] 96 Blood Pressure Position [Right Arm] Semi-fowlers Pulse Oximetry 98 98 98 Oxygen Delivery Method Nasal Cannula Nasal Cannula Nasal Cannula Oxygen Flow Rate 2 2 2 04/27/22 08:30 04/27/22 11:00 04/27/22 16:00 Temperature Temperature Source Pulse Rate [Finger] Pulse Rate [Right Brachial] Respiratory Rate 20 20 20 Respiratory Effort / Characteristics Non-Labored Non-Labored Non-Labored Respiratory Depth Blood Pressure [Right Arm] Blood Pressure Mean [Right Arm] Blood Pressure Position [Right Arm] Pulse Oximetry 94 97 98 Oxygen Delivery Method Nasal Cannula Nasal Cannula Nasal Cannula Oxygen Flow Rate 2 2 2 GENERAL: alert, well appearing, well nourished, no distress, non-toxic EYE EXAM: normal conjunctiva, PERRL and EOM's grossly intact OROPHARYNX: no exudate, no erythema, lips, buccal mucosa, and tongue normal and mucous membranes are moist NECK: supple, no nuchal rigidity, no adenopathy, non-tender LUNGS: Clear to auscultation. Normal chest wall mechanics, no w/r/r HEART: no murmurs, S1 normal and S2 normal ABDOMEN: abdomen soft, non-tender, normo-active bowel sounds, no masses, no rebound or guarding. Mild ecchymosis noted likely from recent surgery, healing incisional site BACK: Back is symmetrical on inspection and there is no deformity, no midline tenderness, no CVA tenderness. SKIN: no rashes and no bruising UPPER EXTREMITIES: upper extremities are grossly normal. FROM, nml pulses b/l. LOWER EXTREMITIES: No pitting edema. FROM, nml pulses b/l. NEURO EXAM: Normal sensorium, cranial nerves II-XII grossly intact, normal speech, no gross weakness of arms, no gross weakness of legs. Gross sensation intact. Course Course 0712: Discussed with hospitalist for additional evaluation and management. 0735: Patient and updated at bedside. 0742: Case discussed with Dr. Brody. No empiric antibiotics at this time. Administered Medications Acetaminophen (Acetaminophen 325 Mg Tab) 650 mg PO Q4H PRN PRN Reason: pain/fever Stop: 05/26/22 10:54 Last Admin: 04/27/22 17:18 Dose: 650 mg Documented By: Admin: 04/27/22 10:40 Dose: 650 mg Documented By: Admin: 04/26/22 21:31 Dose: 650 mg Documented By: Admin: 04/26/22 11:36 Dose: 650 mg Documented By: BREONNA Artificial Tears (Artificial Tears) 1 drops OP BID MARISA Stop: 05/26/22 11:14 Last Admin: 04/27/22 20:35 Dose: 1 drops Documented By: Admin: 04/27/22 09:05 Dose: 1 drops Documented By: Admin: 04/26/22 21:18 Dose: 1 drops Documented By: Admin: 04/26/22 14:03 Dose: 1 drops Documented By: RBEONNA Docusate Sodium (Docusate Sodium 100 Mg Cap) 100 mg PO BID MARISA Stop: 05/26/22 10:54 Last Admin: 04/27/22 20:49 Dose: 100 mg Documented By: Admin: 04/27/22 10:42 Dose: 100 mg Documented By: Admin: 04/26/22 21:20 Dose: 100 mg Documented By: Admin: 04/26/22 11:43 Dose: 100 mg Documented By: BREONNA Famotidine (Famotidine 20 Mg Tab) 20 mg PO HS MARISA Stop: 05/26/22 20:59 Last Admin: 04/27/22 20:49 Dose: 20 mg Documented By: Admin: 04/26/22 21:20 Dose: 20 mg Documented By: LUDY Finasteride (Finasteride 5 Mg Tab) 5 mg PO QAM COUNTS INCLUDE 234 BEDS AT THE [facility] Stop: 05/26/22 10:54 Last Admin: 04/27/22 10:42 Dose: 5 mg Documented By: Admin: 04/26/22 11:43 Dose: 5 mg Documented By: BREONNA Sodium Chloride (Nss 1000ml) 1,000 mls @ 80 mls/hr IV .[id number] COUNTS INCLUDE 234 BEDS AT THE [facility] Stop: 05/26/22 03:44 Last Admin: 04/27/22 11:34 Dose: 80 mls/hr Documented By: Infusion: 04/27/22 11:34 Dose: 80 mls/hr Documented By: Admin: 04/26/22 23:13 Dose: 80 mls/hr Documented By: Infusion: 04/26/22 23:13 Dose: 80 mls/hr Documented By: Admin: 04/26/22 11:45 Dose: 80 mls/hr Documented By: Infusion: 04/26/22 10:07 Dose: 0 mls/hr Documented By: Admin: 04/26/22 03:47 Dose: 150 mls/hr Documented By: LUDY Levalbuterol HCl (Levalbuterol 1.25mg/0.5ml Neb) 1.25 mg NEB BIDR COUNTS INCLUDE 234 BEDS AT THE [facility]; Protocol Stop: 05/26/22 10:54 Last Admin: 04/27/22 19:55 Dose: 1.25 mg Documented By: Admin: 04/27/22 07:21 Dose: 1.25 mg Documented By: Admin: 04/26/22 19:14 Dose: 1.25 mg Documented By: Admin: 04/26/22 11:12 Dose: 1.25 mg Documented By: RACH Magnesium Oxide (Magnesium Oxide 400 Mg Tab) 400 mg PO QAM MARISA Stop: 05/26/22 11:11 Last Admin: 04/27/22 10:43 Dose: 400 mg Documented By: Admin: 04/26/22 11:45 Dose: 400 mg Documented By: BREONNA Melatonin (Melatonin 3 Mg Tab) 3 mg PO HS PRN PRN Reason: Sleep Stop: 05/27/22 20:52 Last Admin: 04/27/22 21:21 Dose: 3 mg Documented By: EM Metoprolol Succinate (Metoprolol Succ 50mg Ext Rel Tab) 50 mg PO QAM MARISA Stop: 05/26/22 10:54 Last Admin: 04/27/22 10:43 Dose: 50 mg Documented By: Admin: 04/26/22 11:42 Dose: 50 mg Documented By: BREONNA Montelukast Sodium (Montelukast Sodium 10 Mg Tablet) 10 mg PO HS MARISA Stop: 05/26/22 20:59 Last Admin: 04/27/22 20:49 Dose: 10 mg Documented By: Admin: 04/26/22 21:20 Dose: 10 mg Documented By: LUDY Multivitamins/Minerals (Cerovite Adv Formula Tab) 1 tab PO DAILY MARISA Stop: 05/26/22 11:09 Last Admin: 04/27/22 10:43 Dose: 1 tab Documented By: Admin: 04/26/22 11:44 Dose: 1 tab Documented By: BREONNA Non-Formulary Patient's Own Med- Breztri 2 each EXT BID MARISA Stop: 05/26/22 20:59 Last Admin: 04/27/22 20:35 Dose: 2 inha Documented By: Admin: 04/27/22 09:04 Dose: 2 inha Documented By: Admin: 04/26/22 21:19 Dose: 2 inha Documented By: LUDY Oxycodone HCl (Oxycodone Hcl Ir 5 Mg Tab (Immediate Release)) 5 mg PO Q8H PRN PRN Reason: Severe pain Stop: 05/10/22 19:54 Last Admin: 04/26/22 20:10 Dose: 5 mg Documented By: LUDY Pantoprazole Sodium (Pantoprazole 40 Mg Tab) 40 mg PO QAM MARISA Stop: 05/26/22 10:54 Last Admin: 04/27/22 10:44 Dose: 40 mg Documented By: Admin: 04/26/22 11:43 Dose: 40 mg Documented By: BREONNA Potassium Chloride (Potassium Chloride Crtab 20 Meq Tabcr) 20 meq PO QAM MARISA Stop: 05/26/22 10:54 Last Admin: 04/27/22 10:44 Dose: 20 meq Documented By: Admin: 04/26/22 11:44 Dose: 20 meq Documented By: BREONNA Telmisartan (Telmisartan 40 Mg Tab) 40 mg PO QAM MARISA Stop: 05/26/22 10:54 Last Admin: 04/27/22 10:44 Dose: 40 mg Documented By: Admin: 04/26/22 11:44 Dose: 40 mg Documented By: BREONNA Discontinued Medications Acetaminophen (Ofirmev) 1,000 mg in 100 mls @ 400 mls/hr IV NOW STA Stop: 04/26/22 04:18 Last Infusion: 04/26/22 04:52 Dose: 0 mls/hr Documented By: Admin: 04/26/22 04:08 Dose: 400 mls/hr Documented By: LUDY Ioversol (Optiray 320 125ml) 125 ml IV ONCE ONE Stop: 04/26/22 04:48 Last Admin: 04/26/22 04:48 Dose: 118 ml Documented By: LIANG Levalbuterol HCl (Levalbuterol 1.25mg/0.5ml Neb) Confirm Administered Dose 1.25 mg .ROUTE .STK-MED ONE Stop: 04/26/22 11:05 Last Admin: 04/26/22 11:06 Dose: Not Given Documented By: [facility] Medical Decision Making Differential Diagnosis Differential diagnoses includes but is not limited to pneumonia, bronchitis, COPD/Asthma exacerbation, pneumothorax, pulmonary embolism, congestive heart fa ilure, acute coronary syndrome Medical Records Attestation: I reviewed the patient's medical records. Home Medications Current Medication List: was personally reviewed by me Laboratory Data Attestation: I reviewed the patient's lab results. Result diagrams: 04/27/22 07:57 04/27/22 07:57 Lab Results 04/26/22 04/26/22 04/26/22 Range/Units 03:30 03:30 03:30 WBC 13.04 H (4.8-10.8) K/ul RBC 3.45 L (4.63-6.08) M/uL Hgb 10.4 L (14.0-18.0) g/dl Hct 32.7 L (40.1-51.0) % MCV 94.8 (80.0-100.0) fL MCH 30.1 (25.0-34.0) pg MCHC 31.8 L (32.0-36.0) g/dL RDW Std Deviation 45.7 (36.4-46.3) fL RDW Coeff of Alan 13.2 (11.5-14.5) % Plt Count 133 (130-400) K/uL MPV 9.5 (9.4-12.4) fL Immature Gran % (Auto) 0.4 % Neut % (Auto) 80.6 % Lymph % (Auto) 8.4 % Phillips % (Auto) 8.4 % Eos % (Auto) 2.0 % Baso % (Auto) 0.2 % Neut # (Auto) 10.50 H (1.4-6.5) K/uL Lymph # (Auto) 1.10 L (1.2-3.4) K/uL Phillips # (Auto) 1.10 H (0.24-0.82) K/uL Eos # (Auto) 0.26 (0-0.50) K/uL Baso # (Auto) 0.03 (0-0.2) K/uL Immature Gran # (Auto) 0.05 H (0.00-0.02) K/uL PT 11.5 (9.0-12.0) Seconds INR 1.1 (0.9-1.1) APTT 31.7 H (21.0-31.0) Seconds PTT Ratio 1.2 Sodium 138 (136-145) mmol/L Potassium 3.8 (3.5-5.1) mmol/L Chloride 104 (98-107) mmol/L Carbon Dioxide 27 (21-32) mmol/L Anion Gap 7 (3-11) BUN 19 (6-23) mg/dl Creatinine 1.24 (0.6-1.4) mg/dl Est Cr Clr Drug Dosing 46.6 ml/min Est GFR ( Amer) 61.9 ml/min Est GFR (Non-Af Amer) 53.4 ml/min BUN/Creatinine Ratio 15.3 (10-20) Glucose 109 H (70-99(Fasting)) mg/dl Lactate (0.4-2.0) mmol/L Calcium 8.1 L (8.5-10.1) mg/dl Magnesium 1.7 (1.7-2.4) mg/dl Total Bilirubin 0.6 (0.2-1.0) mg/dl AST 14 (13-39) U/L ALT 7 (7-52) U/L Alkaline Phosphatase 78 (34-104) U/L Troponin I High Sens 11.0 (0-20) pg/ml Total Protein 6.0 (6.0-8.3) gm/dl Albumin 3.5 (3.4-5.0) gm/dl Globulin 2.5 (2.5-4.0) gm/dl Albumin/Globulin Ratio 1.4 (0.9-2) Procalcitonin (0-0.5) ng/ml Urine Color Urine Appearance (Clear) Urine pH (4.5-7.5) Ur Specific Burt (1.000-1.030) Urine Protein (Negative) Urine Glucose (UA) (Negative) Urine Ketones (Negative) Urine Blood (Negative) Urine Nitrite (Negative) Urine Bilirubin (Negative) Urine Urobilinogen (Negative) Ur Leukocyte Esterase (Negative) Urine WBC (Auto) (0-5) /hpf Urine RBC (Auto) (0-4) /hpf U Hyaline Cast (Auto) (0-5) /lpf U Epithel Cells (Auto) (0-5) /lpf Urine Bacteria (Auto) (Negative) SARS-CoV-2 (PCR) (Negative) 04/26/22 04/26/22 04/26/22 Range/Units 03:30 03:30 03:53 WBC (4.8-10.8) K/ul RBC (4.63-6.08) M/uL Hgb (14.0-18.0) g/dl Hct (40.1-51.0) % MCV (80.0-100.0) fL MCH (25.0-34.0) pg MCHC (32.0-36.0) g/dL RDW Std Deviation (36.4-46.3) fL RDW Coeff of Alan (11.5-14.5) % Plt Count (130-400) K/uL MPV (9.4-12.4) fL Immature Gran % (Auto) % Neut % (Auto) % Lymph % (Auto) % Phillips % (Auto) % Eos % (Auto) % Baso % (Auto) % Neut # (Auto) (1.4-6.5) K/uL Lymph # (Auto) (1.2-3.4) K/uL Phillips # (Auto) (0.24-0.82) K/uL Eos # (Auto) (0-0.50) K/uL Baso # (Auto) (0-0.2) K/uL Immature Gran # (Auto) (0.00-0.02) K/uL PT (9.0-12.0) Seconds INR (0.9-1.1) APTT (21.0-31.0) Seconds PTT Ratio Sodium (136-145) mmol/L Potassium (3.5-5.1) mmol/L Chloride (98-107) mmol/L Carbon Dioxide (21-32) mmol/L Anion Gap (3-11) BUN (6-23) mg/dl Creatinine (0.6-1.4) mg/dl Est Cr Clr Drug Dosing ml/min Est GFR ( Amer) ml/min Est GFR (Non-Af Amer) ml/min BUN/Creatinine Ratio (10-20) Glucose (70-99(Fasting)) mg/dl Lactate 0.9 (0.4-2.0) mmol/L Calcium (8.5-10.1) mg/dl Magnesium (1.7-2.4) mg/dl Total Bilirubin (0.2-1.0) mg/dl AST (13-39) U/L ALT (7-52) U/L Alkaline Phosphatase (34-104) U/L Troponin I High Sens (0-20) pg/ml Total Protein (6.0-8.3) gm/dl Albumin (3.4-5.0) gm/dl Globulin (2.5-4.0) gm/dl Albumin/Globulin Ratio (0.9-2) Procalcitonin 0.05 (0-0.5) ng/ml Urine Color Urine Appearance (Clear) Urine pH (4.5-7.5) Ur Specific Burt (1.000-1.030) Urine Protein (Negative) Urine Glucose (UA) (Negative) Urine Ketones (Negative) Urine Blood (Negative) Urine Nitrite (Negative) Urine Bilirubin (Negative) Urine Urobilinogen (Negative) Ur Leukocyte Esterase (Negative) Urine WBC (Auto) (0-5) /hpf Urine RBC (Auto) (0-4) /hpf U Hyaline Cast (Auto) (0-5) /lpf U Epithel Cells (Auto) (0-5) /lpf Urine Bacteria (Auto) (Negative) SARS-CoV-2 (PCR) NEGATIVE (Negative) 04/26/22 04/27/22 04/27/22 Range/Units 04:55 07:57 07:57 WBC 12.76 H (4.8-10.8) K/ul RBC 3.41 L (4.63-6.08) M/uL Hgb 10.3 L (14.0-18.0) g/dl Hct 31.6 L (40.1-51.0) % MCV 92.7 (80.0-100.0) fL MCH 30.2 (25.0-34.0) pg MCHC 32.6 (32.0-36.0) g/dL RDW Std Deviation 44.9 (36.4-46.3) fL RDW Coeff of Alan 13.2 (11.5-14.5) % Plt Count 142 (130-400) K/uL MPV 9.9 (9.4-12.4) fL Immature Gran % (Auto) % Neut % (Auto) % Lymph % (Auto) % Phillips % (Auto) % Eos % (Auto) % Baso % (Auto) % Neut # (Auto) (1.4-6.5) K/uL Lymph # (Auto) (1.2-3.4) K/uL Phillips # (Auto) (0.24-0.82) K/uL Eos # (Auto) (0-0.50) K/uL Baso # (Auto) (0-0.2) K/uL Immature Gran # (Auto) (0.00-0.02) K/uL PT (9.0-12.0) Seconds INR (0.9-1.1) APTT (21.0-31.0) Seconds PTT Ratio Sodium 137 (136-145) mmol/L Potassium 3.7 (3.5-5.1) mmol/L Chloride 103 (98-107) mmol/L Carbon Dioxide 26 (21-32) mmol/L Anion Gap 8 (3-11) BUN 13 (6-23) mg/dl Creatinine 1.10 (0.6-1.4) mg/dl Est Cr Clr Drug Dosing 52.5 ml/min Est GFR ( Amer) 71.6 ml/min Est GFR (Non-Af Amer) 61.8 ml/min BUN/Creatinine Ratio 11.8 (10-20) Glucose 101 H (70-99(Fasting)) mg/dl Lactate (0.4-2.0) mmol/L Calcium 8.3 L (8.5-10.1) mg/dl Magnesium 1.7 (1.7-2.4) mg/dl Total Bilirubin (0.2-1.0) mg/dl AST (13-39) U/L ALT (7-52) U/L Alkaline Phosphatase (34-104) U/L Troponin I High Sens (0-20) pg/ml Total Protein (6.0-8.3) gm/dl Albumin (3.4-5.0) gm/dl Globulin (2.5-4.0) gm/dl Albumin/Globulin Ratio (0.9-2) Procalcitonin (0-0.5) ng/ml Urine Color Yellow Urine Appearance Clear (Clear) Urine pH 5.5 (4.5-7.5) Ur Specific Burt 1.031 H (1.000-1.030) Urine Protein Negative (Negative) Urine Glucose (UA) Negative (Negative) Urine Ketones Trace H (Negative) Urine Blood 2+ H (Negative) Urine Nitrite Negative (Negative) Urine Bilirubin Negative (Negative) Urine Urobilinogen Negative (Negative) Ur Leukocyte Esterase Negative (Negative) Urine WBC (Auto) 1-5 (0-5) /hpf Urine RBC (Auto) 10-30 H (0-4) /hpf U Hyaline Cast (Auto) 0 (0-5) /lpf U Epithel Cells (Auto) 0-5 (0-5) /lpf Urine Bacteria (Auto) Negative (Negative) SARS-CoV-2 (PCR) (Negative) Imaging Data My Impression: X-ray: I interpreted the following studies. Chest: A single view study of the chest was reviewed and was negative for cardiomegaly, focal infiltrate, effusion, pulmonary edema, or wide mediastinum. Radiologist's Impression: Abdomen/Pelvis CTA 04/26/22 03:41 CT ANGIOGRAPHY OF THE ABDOMEN AND PELVIS CLINICAL HISTORY: Fever, s/p recent AAA repair. COMPARISON STUDY: CTA of the abdomen and pelvis April 19, 2022. TECHNIQUE: Helical axial images of the abdomen and pelvis were obtained during arterial phase following intravenous injection of 118 cc Optiray 320 IV. Sagittal and coronal reconstructions were viewed as well as maximal intensity projections on an independent 3-D workstation. Automated exposure control was utilized for the study. A dose lowering technique was utilized adhering to the principles of ALARA. FINDINGS: Please note that the chest CT will be reported separately. Mild bilateral lower lobe airspace opacities have decreased since CT of April 19, 2022. No pneumatosis, free air or portal venous gas is present. Gallbladder is mildly distended. There is no pericholecystic stranding. Arterial phase image of the liver, spleen, left adrenal gland and pancreas are unremarkable with the exception of a 1.2 cm cystic lesion within the pancreatic head on axial image 150 of 433. 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 Subcentimeter right adrenal nodule is unchanged since CT of February 02, 2017. This is benign. There is no evidence for a bowel obstruction. Colonic diverticulosis is noted without evidence for acute diverticulitis. Images of the pelvis are degraded by streak artifact from bilateral hip arthroplasties. There is no evidence for a bowel obstruction. The appendix is not visualized. There is gas within the bladder, likely from recent catheterization. There is no hydronephrosis. Small bilateral renal calculi are noted. There are suspected renal cyst. Probable small bladder calculus. Interval placement of a bifurcated endovascular aortoiliac stent graft is noted. Aneurysm sac is unchanged, measuring 6.8 cm in size since CT of April 19, 2022. Iliac limbs are patent. There is no evidence for rupture. No endoleak is noted, likely typed positioning from a lumbar artery. Bilateral renal arteries are patent. Celiac axis and superior mesenteric artery are patent. Moderate atherosclerotic plaque is noted. No groin pseudoaneurysm is noted. Minimal stranding within the groins is postprocedural and expected in the early postoperative setting. IMPRESSION: 1. Interval placement of a bifurcated endovascular aortoiliac stent graft. No change in aneurysm sac size. No rupture. Endoleak, likely take 2, as described above. 2. Distended gallbladder. No pericholecystic stranding. 3. Colonic diverticulosis without evidence for acute diverticulitis. 4. Mild bilateral lower lobe airspace opacities, decreased since CT of April 19, 2022. ACT 112: Negative or not required by law. Electronically signed by: Walter Johnson M.D. 04/26/2022 7:07 AM ECG Data Attestation: I personally reviewed and interpreted this ECG as follows: Indication: + weakness Rate (beats per minute): 88 Rhythm: + normal sinus ECG Intervals/blocks: + Normal QRS and + Normal QT ECG [place]: + Left axis deviation ECG ST segments: + Nonspecific ST abnormalities MDM Narrative An order was placed for continuous cardiac monitoring. The monitor shows a rate of _68_ with _normal sinus__ rhythm. This is an 81-year-old brought in by EMS due to concern for weakness and fever at home where he lives with his . Patient was found to have a fever here on arrival and given recent surgery, a septic evaluation was started. Chest x-ray unremarkable. Patient denied any accompanying abdominal pain. He states he was slightly short of breath initially when he tried to get up to go to the bathroom although states this is common for him as he does have an underlying history of COPD. Patient was able to answer questions appropriately here although does get slightly confused regarding past medical history/medications. Due to recent AAA repair, patient also sent for CT angiography. There was some delay in obtaining reads from outside radiology group. Eventually in-house radiology read the CT of the abdomen and pelvis. Case was discussed with hospitalist for additional evaluation and management. Case was also discussed with the vascular surgeon who would perform the procedure. He felt it was appropriate to observe the patient to assure no recurrent fever but did not feel empiric antibiotics were warranted at this time. Cultures are pending. UA unremarkable. Patient did h ave mild leukocytosis, lactic acid and procalcitonin reassuring. Stable appearing anemia. No other evidence of intra-abdominal infection. CT of the chest still pending at time of discussion with hospitalist. Impression & Plan Fever, Weakness, S/P endovascular aneurysm repair, COPD (chronic obstructive pulmonary disease), Anemia Discharge Plan Visit Data Chief Complaint: Shortness of Breath/Dyspnea Stated Complaint: SOB ED Provider: Deanna Herrera Discharge Problem: Fever, Weakness, S/P endovascular aneurysm repair, COPD (chronic obstructive pulmonary disease), Anemia Patient Disposition: Admitted As Inpatient Discharge Instructions Interventions: ED Discharge Assessment Last Done: 04/26/22 10:57
[2022-04-26] MEDS: SODIUM CHLORIDE 0.9% 1000ML 1,000 ML IV SCH ×3 (03:47→23:13)
[2022-04-26 03:55] LABS: INR 1.1 (0.9-1.1); Partial Thromboplastin Ratio 1.2; Partial Thromboplastin Time 31.7 Seconds (21.0-31.0); Prothrombin Time 11.5 Seconds (9.0-12.0)
[2022-04-26] MEDS ORDERED: ACETAMINOPHEN 1,000 MG/100 ML VIAL IV STA (04:04)
[2022-04-26 04:08] LABS: Albumin Globulin Ratio 1.4 (0.9-2); Albumin Level 3.5 gm/dl (3.4-5.0); BUN Creatinine Ratio 15.3 (10-20); Bilirubin,Total 0.6 mg/dl (0.2-1.0); Calcium 8.1 mg/dl (8.5-10.1); Creatinine Clr Calc Pharmacy 46.6 ml/min; Est GFR (African American) 61.9 ml/min; Est GFR (Non-African American) 53.4 ml/min; Globulin 2.5 gm/dl (2.5-4.0); Magnesium 1.7 mg/dl (1.7-2.4); Potassium 3.8 mmol/L (3.5-5.1)
[2022-04-26] MEDS ORDERED: OPTIRAY 320 125ml IV ONE (04:47)
[2022-04-26 05:23] LABS: Appearance Urine Clear (Clear); Bacteria Urine Automated Negative (Negative); Bilirubin Urine Negative (Negative); Blood Urine 2+ (Negative); Cast Urine Automated 0 /lpf (0-5); Color Urine Yellow; Epithelial Cell Urine Auto 0-5 /lpf (0-5); Glucose Urine UA Negative (Negative); Ketones Urine Trace (Negative); Leukocyte Esterase Urine Negative (Negative); Nitrite Urine Negative (Negative); Protein Urine Negative (Negative); Specific Gravity Urine 1.031 (1.000-1.030); Urobilinogen Urine Negative (Negative); pH Urine 5.5 (4.5-7.5)
--- NOTE | 2022-04-26 07:09 | CT Scan Report ---
CT ANGIOGRAPHY OF THE ABDOMEN AND PELVIS CLINICAL HISTORY: Fever, s/p recent AAA repair. COMPARISON STUDY: CTA of the abdomen and pelvis April 19, 2022. TECHNIQUE: Helical axial images of the abdomen and pelvis were obtained during arterial phase followi ng intravenous injection of 118 cc Optiray 320 IV. Sagittal and coronal reconstructions were viewed a s well as maximal intensity projections on an independent 3-D workstation. Automated exposure control was utilized for the study. A dose lowering technique was utilized adhering to the principles of [place] SALUD. FINDINGS: Please note that the chest CT will be reported separately. Mild bilateral lower lobe airspa ce opacities have decreased since CT of April 19, 2022. No pneumatosis, free air or portal venous gas is present. Gallbladder is mildly distended. There is no pericholecystic stranding. Arterial phase im age of the liver, spleen, left adrenal gland and pancreas are unremarkable with the exception of a 1. 2 cm cystic lesion within the pancreatic head on axial image 150 of 433. 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 Subcentimeter right adrenal nodule is unchanged since CT of February 02, 2017. This is benig n. There is no evidence for a bowel obstruction. Colonic diverticulosis is noted without evidence for acute diverticulitis. Images of the pelvis are degraded by streak artifact from bilateral hip arthro plasties. There is no evidence for a bowel obstruction. The appendix is not visualized. There is gas within the bladder, likely from recent catheterization. There is no hydronephrosis. Small bilateral r enal calculi are noted. There are suspected renal cyst. Probable small bladder calculus. Interval placement of a bifurcated endovascular aortoiliac stent graft is noted. Aneurysm sac is unch anged, measuring 6.8 cm in size since CT of April 19, 2022. Iliac limbs are patent. There is no eviden ce for rupture. No endoleak is noted, likely typed positioning from a lumbar artery. Bilateral renal arteries are patent. Celiac axis and superior mesenteric artery are patent. Moderate atherosclerotic plaque is noted. No groin pseudoaneurysm is noted. Minimal stranding within the groins is postprocedu ral and expected in the early postoperative setting. IMPRESSION: 1. Interval placement of a bifurcated endovascular aortoiliac stent graft. No change in aneurysm sac size. No rupture. Endoleak, likely take 2, as described above. 2. Distended gallbladder. No pericholecystic stranding. 3. Colonic diverticulosis without evidence for acute diverticulitis. 4. Mild bilateral lower lobe airspace opacities, decreased since CT of April 19, 2022. ACT 112: Negative or not required by law. Electronically signed by: Walter Johnson M.D. 04/26/2022 7:07 AM
--- NOTE | 2022-04-26 07:49 | CT Scan Report ---
CT angio chest w con HISTORY: Shortness of breath. Fever. TECHNIQUE: Multiaxial CT images of the chest were performed following the intravenous administration of contrast to evaluate the aorta. Maximal intensity projection images were also obtained. COMPARISON STUDY: Chest CT 07/06/2020 and abdomen and pelvis CT 04/19/2022. FINDINGS: Stable mild aneurysmal dilatation of the ascending thoracic aorta measuring up to 4.4 cm in diameter. No evidence for an aortic dissection. There is mild calcified plaque within the thoracic a joselin. Study was not performed to evaluate the pulmonary arteries. However, the main pulmonary arterie s appear patent. The thyroid gland enhances normally. There is a loop recorder within the left anteri or chest wall. Please refer to the same day abdomen and pelvis CT for further evaluation of the abdom inal structures. There is a mildly distended gallbladder which is partially visualized. There are are 2 subcentimeter right adrenal gland nodules. Normal esophagus. No mediastinal or hilar lymphadenopat hy. Moderate calcified plaque within the coronary arteries. No pleural or pericardial effusions. No s uspicious lytic are blastic osseous lesions. No pneumothorax. There is respiratory motion artifact. T he central airways appear patent. Mild to moderate emphysema. Small cluster of tree-in-bud nodular op acities within the periphery the right upper lobe. Small patchy densities within the base of the bila teral lower lobes have slightly improved in the interval. IMPRESSION: 1. Stable mild aneurysmal dilatation of the ascending thoracic aorta measuring up to 4.4 cm in diamet er. 2. No evidence for an aortic dissection. 3. Emphysema. 4. Small patchy densities within the bases of the bilateral lower lobes have slightly improved in the interval. 5. Please refer to the same day abdomen and pelvis CT for further evaluation of the abdominal structu res. ACT 112: Negative or not required by law. Electronically signed by: Mt Burroughs M.D. 04/26/2022 7:47 AM
--- NOTE | 2022-04-26 09:32 | History & Physical Report ---
Date of Service April 26, 2022 Assessment & Plan (1) Dyspnea: Plan: Attending: Dr. Chacon Impression: 81-year-old male with history of COPD, hypertension, atrial fibrillation, other past medical history as listed in HPI. Patient presented for PVAR of a AAA on 04/24/[address] Brody. Surgery was uneventful. Patient was discharged 04/25/2022 in good condition. Overnight, patient got up to urinate and had trouble making it to the bathroom secondary to weakness. also noticed that he had increased wheezes and was short of breath which was accompanied by diaphoresis. 911 was called and patient was transported to the emergency department for further evaluation where he was found to be febrile with a T-max of 38.3 C. Patient received IV fluids and supplemental oxygen as well as Tylenol and referred for admission for observation. Recommendations: Patient has COPD class C with recent FEV1 of 56%. He follows with Dr. Interiano in the outpatient office. He is currently managed on Breztri 2 inhalations twice daily as well as albuterol nebulizer treatment in the morning and in the evening. Patient has chronic history of complaints of shortness of breath and has frequently been placed on steroid tapers and antibiotic treatment for exas peration Recently the patient attempted to call the pulmonary office but was unable to be seen. He then went to his primary care physician and was given a prednisone taper for 16 days starting 04/03/2022. Patient just completed prednisone taper on 04/19/2022 Patient is not hypoxic. CT scan of the chest shows chronic groundglass opacities with no evidence of acute abnormalities We will continue patient on home inhaler of budesonide/glycopyrrolate/formoterol as well as scheduled albuterol nebulizer treatments twice daily Maintain SaO2 between 88 and 92% I do not think that this is a COPD exacerbation. I believe this to be typical shortness of breath associated with the patient COPD exacerbated by discharge home from surgery and confusion Continue to monitor SaO2 and provide supportive care (2) Weakness: Plan: Patient underwent PVAR for AAA repair 04/24/2022 Patient's reports that he has had increased weakness over the last several days Will order PT/OT evaluations and place referral for rehab if qualified Discussion with patient's and son affirms their feeling that he will need rehab for 2 to 7 days. They also state that he will be resistant to placement but asked that we pursue placement nonetheless Patient should be placed on fall precautions per nursing protocol (3) S/P AAA repair using bifurcation graft: Plan: POD #[address] Brody Dressings dry and intact bilaterally to the inguinal regions Continue postoperative care per Dr. Brody's discharge instructions (4) Dementia: Plan: reports that this seems to be progressive over the last 2 to 3 years Short-term memory with full detail to long-term events No prior neurological work-up or official diagnosis of Alzheimer's or other forms of dementia Will defer any further work-up to outpatient with the patient's PCP Patient currently takes Ambien nightly at home. Would avoid this during inpatient stay and suggest that he not use it as an outpatient (5) COPD (chronic obstructive pulmonary disease): Plan: Gold class C Patient can use his own inhaler while in the hospital Albuterol nebulizer treatments twice daily scheduled to conform to home regimen Continue montelukast Maintain SaO2 between 88 and 92% Follow-up with Dr. Interiano in the pulmonary office per routine schedule (6) CKD (chronic kidney disease): Plan: Patient appears to be at baseline of 1.2 Patient currently receiving IV fluids. Good urinary output Follow serial labs (7) Hypertension: Plan: Currently hemodynamically stable. Continue Toprol-XL 50 mg daily as well as Micardis Continue magnesium oxide (8) Atrial fibrillation: Plan: Implantable loop recorder Continue Toprol-XL Monitor on telemetry (9) History of tobacco use: Plan: Greater than 88-mlsh-gilo history Patient quit smoking in 2014 Continue to encourage abstention of tobacco products (10) Benign localized prostatic hyperplasia with lower urinary tract symptoms (LUTS): Plan: No acute issues Continue finasteride (11) Erectile dysfunction: Plan: Patient does take sildenafil as needed Patient did not take this medication in the last week. Would recommend holding on discharge until patient is fully recovered (12) Nocturnal hypoxia: Plan: Continue with supplemental oxygen at night at 2 L/min via nasal cannula If patient is on telemetry, supplemental oxygen to be held as long as patient's SaO2 is maintained between 88 and 92% (13) Syncopal episodes: Plan: Patient's reports that he was weak and confused last night with diaphoresis Patient does have an implantable loop recorder Will talk to cardiology about interrogating the recorder while inpatient No syncopal episodes in the near past Monitor on telemetry Further management by cardiology as an outpatient (14) DVT prophylaxis: Plan: Patient with PVAR AAA 04/24/2022 Chemical prophylaxis as well as YOVANNY boris and SCDs per vascular surgery Out of bed and ambulate as tolerated Increase activity as tolerated History of Present Illness Chief Complaint: Shortness of breath and weakness Primary Care Provider: ANGELITA Moody Attending: Dr. Chacon This is a 81-year-old male with a past medical history including COPD Gold class C with an FEV1 of 56%, history of tobacco abuse (quit in 2014), chronic bronchitis, nocturnal hypoxia requiring 2 L/min via nasal cannula HS, history of syncope, atrial fibrillation, hypertension, abdominal aortic aneurysm s/p PVAR 04/24/2022, retinopathy, BPH, erectile dysfunction. Patient was found to have an abdominal aortic aneurysm in 2017 measuring 3.9 cm. Patient had routine follow-up and it was found that the aneurysm was close to 7 cm. Patient presented for elective PVAR with Dr. Brody 04/24/2022. There were no complications with the surgery and patient had minimal blood loss. Patient was discharged yesterday. Last evening, patient got up to urinate as he normally does and found him to be extremely weak and short of breath. He had increased wheezes. She was unable to check pulse oximetry at that time. She also reports that the patient was diaphoretic. He denied any chest pain to her at that time. The called 911 and patient was transported to the emergency department where is found to have a temperature of 38.3 C. Vital signs otherwise have been within normal limits. Patient was placed on his normal 2 L/min of supplemental oxygen via nasal cannula and has been maintaining saturations in the mid 90s. The cannula was removed this morning at the time of my examination and patient continued to remain above 90%. Patient has no increased sputum or cough. He has no hemoptysis. He reports that his shortness of breath has resolved. Patient does report typical postsurgical pain in the bilateral groins. Inguinal regions were checked and there are dressings in place which are dry and intact. Patient does have tenderness to palpation over the catheter insertion site but there is no excessive ecchymosis and no evidence of hematoma on palpation. Pedal pulses are intact bilaterally and equal. Feet are warm bilaterally. There is no asymmetrical edema of the lower extremities. There is no lower extremity edema on examination. Patient is found to be bronchospastic on examination. He has good bilateral breath sounds. Heart rate is regular and rate controlled in the 70s. Patient is able to sit up in bed unassisted with use of handrails but is very weak and unable to stay seated in that position for any length of time. Patient moves toes, feet, legs spontaneously and strength is equal bilaterally. Skin is dry. Color is good. Patient does have evidence of dementia. I spoke to the about this privately in the hallway and she states for the last 2 or 3 years he has short- term forgetfulness but remembers things from years ago. He has not had any neurological work-up and does not carry a diagnosis of Alzheimer's or progressive dementia at this time. I discussed CODE STATUS extensively with the patient and his . Patient would like to be mechanically ventilated if needed for pneumonia or acute respiratory failure. He would not like to have cardiac compressions or heroic measures should his heart stop. He is agreeable to electrical cardioversion if needed as well as medicinal treatment from a conservative standpoint regarding his cardiopulmonary standing. Allergies Allergy/AdvReac Type Severity Reaction Status Date / Time No Known Drug Allergies Allergy Verified 04/24/22 08:10 Home Medications Medication Instructions Recorded Confirmed Type Oxygen Home #2 L 12/08/19 04/26/22 Rx nebulizers #1 ea 09/07/20 04/26/22 Rx aflibercept 2 mg/0.05 mL 0 mg intravitreal UD 06/03/21 04/26/22 History intravitreal solution for injection (Eylea) famotidine 20 mg tablet (Pepcid) 20 mg PO HS 06/03/21 04/26/22 History peg 400-propylene glycol (PF) 0.4 1 drp OPB BID 06/03/21 04/26/22 History %-0.3 % eye drops in a dropperette (Systane (PF)) telmisartan 40 mg tablet (Micardis) 40 mg PO QAM 06/03/21 04/26/22 History celecoxib 200 mg capsule (Celebrex) 200 mg PO QAM #90 caps 06/06/21 04/26/22 Rx metoprolol succinate 50 mg 50 mg PO QAM #90 tabs 08/29/21 04/26/22 Rx tablet,extended release 24 hr (Toprol XL) sildenafil 100 mg tablet (Viagra) 100 mg PO DAILY PRN sexual 09/11/21 04/26/22 Rx activity #30 tabs montelukast 10 mg tablet 10 mg PO HS #90 tabs 12/06/21 04/26/22 Rx (Singulair) Flutter Valve #1 ea 12/29/21 04/26/22 Rx albuterol sulfate 90 mcg/actuation 2 inh inhalation Q4H PRN shortness 12/29/21 04/26/22 Rx aerosol inhaler (Ventolin HFA) of breath #8.5 grams budesonide 160 mcg-glycopyr 9 2 inh inhalation BID COPD #10.7 12/29/21 04/26/22 Rx mcg-formot 4.8 mcg/actuation HFA grams inhaler (Breztri Aerosphere) levalbuterol HCl 1.25 mg/3 mL 1.25 mg (3 mL) inhalation Q4 PRN 12/29/21 04/26/22 Rx solution for nebulization (Xopenex) Shortness Of Breath #180 mL magnesium oxide 400 mg PO QAM #0 caps 01/16/22 04/26/22 History zolpidem 5 mg tablet 5 mg PO HS #30 tabs 01/16/22 04/26/22 Rx epinephrine 0.3 mg/0.3 mL 0.3 mg IM UD PRN bronchodilation 04/20/22 04/26/22 History injection, auto-injector (EpiPen 2-Marco Antonio) finasteride 5 mg tablet 5 mg PO QAM 04/20/22 04/26/22 History pantoprazole 40 mg tablet,delayed 40 mg PO QAM 04/20/22 04/26/22 History release (Protonix) potassium chloride 20 mEq 20 meq PO QAM 04/20/22 04/26/22 History tablet,extended release tzxyjfrbsyym-jrdmppai-tawhwe 1 tab PO DAILY 04/24/22 04/26/22 History tablet (Multivitamin 50 Plus) docusate sodium 100 mg capsule 100 mg PO BID constipation #60 caps 04/25/22 04/26/22 Rx (Colace) oxycodone-acetaminophen 5 mg-325 1 - 2 tab PO TID PRN pain #15 tabs 04/25/22 04/26/22 Rx mg tablet (Percocet) Past Med/Surg History Medical History (Updated 04/26/22 @ 09:15 by Branden Mendez PA-C) Anemia Aneurysm of infrarenal abdominal aorta 04/18/2022 - 7cm x 6.7 cm Atrial fibrillation dx 7 yrs ago BPH (benign prostatic hyperplasia) Carotid artery stenosis CKD (chronic kidney disease) COPD (chronic obstructive pulmonary disease) Dementia Erectile dysfunction GERD (gastroesophageal reflux disease) Hearing loss Hypertension Implantable loop recorder present dr jacobson - 3 yrs ago Insomnia Neutrophilic leukocytosis Nocturnal hypoxia o2 2l at hs Osteoarthritis Syncopal episodes summer 2020 Surgical History History of left hip replacement History of right hip replacement Hx of appendectomy Hx of colonoscopy S/P AAA repair using bifurcation graft Family History Other Coronary heart disease Diabetes Social History (Updated 04/26/22 @ 09:09 by Branden Mendez PA-C) Smoking Status: Former smoker Tobacco Type: Cigarettes Age Started Using Tobacco: 18; packs per day: 1; Years Smoked: 66; Cigarettes Per Day: 20; Smoking End Date: 2014; Second Hand Exposure: No; Do You Dip or Chew Tobacco: No; Tobacco Cessation Education Requested by Patient: No Hx Alcohol Use: No Hx Substance Use: No Preferred Language: Kyrgyz Communication Ability: Effective Windows Software Engineer Required: No Beliefs That Will Affect Care: None marital status: Current Living Situation: Spouse current occupational status: retired other: [id number] from [id number]. Discharge rank E4. No combat injury Feels Safe at Home: Yes Dental Care, Regularly: No Seatbelt Use: always Sunscreen Use: Yes Assistive Devices: Nebulizer and Oxygen - at Night Review of Systems Review of Systems: A total of 10 systems was reviewed and is negative other than as listed in the HPI Physical Exam Physical Exam: GENERAL : No acute distress. Pleasant. Talkative EYES: No icterus, gaze conjugate. Pupils equal round and reactive to light NOSE: No evidence of epistaxis. Nasal cannula in place MOUTH: No lesions or candidiasis. Mucosa is moist NECK: Supple. No carotid bruits. No stridor. No cervical lymphadenopathy LUNGS: Good inspirational effort. Patient does have scattered bronchospasm. HEART: Regular, rate controlled in the 70s ABDOMEN: Soft, NT, ND, BS Present. No guarding or rebound tenderness EXTREMITIES: No LE edema, pedal pulses intact and equal bilaterally. There are gauze dressings covered with Medipore tape in the bilateral inguinal regions. Dressings are dry and intact. Tenderness to palpation over the insertion site of the catheters bilaterally. No evidence of excessive ecchymosis or hematoma. Good sensation in both lower extremities equal bilaterally. NEURO: A&OX3. However, patient does demonstrate some evidence of dementia. He thinks his nasal cannula is a ventilator. He does not remember events leading up to last night's hospitalization. He does not remember the ambulance ride. affirms the patient does have progressive short-term memory loss over the last 2 to 3 years. Otherwise, patient appears to be intact focally with cranial nerves II through X. Results & Data Results & Data ([facility]) Vital Signs (Past 12 Hours) Vital Signs Temp Pulse Pulse Resp BP BP Pulse Ox 04/26/22 08:19 37.0 C 71 20 143/69 H 98 04/26/22 07:30 73 22 164/77 H 98 04/26/22 07:00 18 04/26/22 06:09 75 18 142/67 H 96 04/26/22 05:17 37.5 C 79 23 151/63 H 96 04/26/22 04:41 04/26/22 04:40 83 17 137/68 96 04/26/22 03:37 2 L 04/26/22 03:37 04/26/22 03:37 04/26/22 03:16 38.3 C H 88 23 163/105 H 93 O2 Del Method O2 Flow Rate 04/26/22 08:19 Nasal Cannula 2 04/26/22 07:30 Nasal Cannula 2 04/26/22 07:00 04/26/22 06:09 Nasal Cannula 2 04/26/22 05:17 Nasal Cannula 2 04/26/22 04:41 Nasal Cannula 2 04/26/22 04:40 Nasal Cannula 2 04/26/22 03:37 Nasal Cannula 04/26/22 03:37 Nasal Cannula 2 04/26/22 03:37 2 04/26/22 03:16 Room Air Critical Care Results & Data Vital Signs (Past 12 Hours) Vital Signs Temp Pulse Pulse Resp BP BP Pulse Ox 04/26/22 08:19 37.0 C 71 20 143/69 H 98 04/26/22 07:30 73 22 164/77 H 98 04/26/22 07:00 18 04/26/22 06:09 75 18 142/67 H 96 04/26/22 05:17 37.5 C 79 23 151/63 H 96 04/26/22 04:41 04/26/22 04:40 83 17 137/68 96 04/26/22 03:37 2 L 04/26/22 03:37 04/26/22 03:37 04/26/22 03:16 38.3 C H 88 23 163/105 H 93 O2 Del Method O2 Flow Rate 04/26/22 08:19 Nasal Cannula 2 04/26/22 07:30 Nasal Cannula 2 04/26/22 07:00 04/26/22 06:09 Nasal Cannula 2 04/26/22 05:17 Nasal Cannula 2 04/26/22 04:41 Nasal Cannula 2 04/26/22 04:40 Nasal Cannula 2 04/26/22 03:37 Nasal Cannula 04/26/22 03:37 Nasal Cannula 2 04/26/22 03:37 2 04/26/22 03:16 Room Air Lab & Micro Results (Past 24 Hours) RBC 3.45 M/uL (4.63-6.08) L 04/26/22 WBC 13.04 K/ul (4.8-10.8) H 04/26/22 Hgb 10.4 g/dl (14.0-18.0) L 04/26/22 Hct 32.7 % (40.1-51.0) L 04/26/22 MCV 94.8 fL (80.0-100.0) 04/26/22 MCH 30.1 pg (25.0-34.0) 04/26/22 MCHC 31.8 g/dL (32.0-36.0) L 04/26/22 RDW Standard Deviation 45.7 fL (36.4-46.3) 04/26/22 RDW Coefficient of Variation 13.2 % (11.5-14.5) 04/26/22 Plt Count 133 K/uL (130-400) 04/26/22 MPV 9.5 fL (9.4-12.4) 04/26/22 Neutrophils (%) (Auto) 80.6 % 04/26/22 Lymphocytes (%) (Auto) 8.4 % 04/26/22 Monocytes # (Auto) 1.10 K/uL (0.24-0.82) H 04/26/22 Eosinophils # (Auto) 0.26 K/uL (0-0.50) 04/26/22 Immature Granulocyte % (Auto) 0.4 % 04/26/22 Neutrophils # (Auto) 10.50 K/uL (1.4-6.5) H 04/26/22 Lymphocytes # (Auto) 1.10 K/uL (1.2-3.4) L 04/26/22 Monocytes # (Auto) 1.10 K/uL (0.24-0.82) H 04/26/22 Eosinophils # (Auto) 0.26 K/uL (0-0.50) 04/26/22 Basophils # (Auto) 0.03 K/uL (0-0.2) 04/26/22 Immature Granulocyte # (Auto) 0.05 K/uL (0.00-0.02) H 04/26 Na 138 mmol/L (136-145) 04/26/22 K 3.8 mmol/L (3.5-5.1) 04/26/22 Cl 104 mmol/L (98-107) 04/26/22 CO2 27 mmol/L (21-32) 04/26/22 Anion Gap 7 (3-11) 04/26/22 BUN 19 mg/dl (6-23) 04/26/22 Creatinine 1.24 mg/dl (0.6-1.4) 04/26/22 Estimated GFR ( Amer) 61.9 ml/min 04/26/22 Estimated GFR (Non-Af Amer) 53.4 ml/min 04/26/22 BUN/Creatinine Ratio 15.3 (10-20) 04/26/22 Glu 109 mg/dl (70-99(Fasting)) H 04/26/22 Ca 8.1 mg/dl (8.5-10.1) L 04/26/22 Total Bilirubin 0.6 mg/dl (0.2-1.0) 04/26/22 AST 14 U/L (13-39) 04/26/22 ALT 7 U/L (7-52) 04/26/22 Alkaline Phosphatase 78 U/L (34-104) 04/26/22 TP 6.0 gm/dl (6.0-8.3) 04/26/22 Albumin 3.5 gm/dl (3.4-5.0) 04/26/22 Globulin 2.5 gm/dl (2.5-4.0) 04/26/22 Albumin/Globulin Ratio 1.4 (0.9-2) 04/26/22 Mg 1.7 mg/dl (1.7-2.4) 04/26/22 03:30 Calcium Level 8.1 mg/dl (8.5-10.1) L 04/26/22 03:30 Prothromb Time International Ratio 1.1 (0.9-1.1) 04/26/22 03:3 0 Diagnostic Findings (Past 24 Hours) Abdomen/Pelvis CTA 04/26/22 03:41 CT ANGIOGRAPHY OF THE ABDOMEN AND PELVIS CLINICAL HISTORY: Fever, s/p recent AAA repair. COMPARISON STUDY: CTA of the abdomen and pelvis April 19, 2022. TECHNIQUE: Helical axial images of the abdomen and pelvis were obtained during arterial phase following intravenous injection of 118 cc Optiray 320 IV. Sagittal and coronal reconstructions were viewed as well as maximal intensity projections on an independent 3-D workstation. Automated exposure control was utilized for the study. A dose lowering technique was utilized adhering to the principles of ALARA. FINDINGS: Please note that the chest CT will be reported separately. Mild bilateral lower lobe airspace opacities have decreased since CT of April 19, 2022. No pneumatosis, free air or portal venous gas is present. Gallbladder is mildly distended. There is no pericholecystic stranding. Arterial phase image of the liver, spleen, left adrenal gland and pancreas are unremarkable with the exception of a 1.2 cm cystic lesion within the pancreatic head on axial image 150 of 433. 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 Subcentimeter right adrenal nodule is unchanged since CT of February 02, 2017. This is benign. There is no evidence for a bowel obstruction. Colonic diverticulosis is noted without evidence for acute diverticulitis. Images of the pelvis are degraded by streak artifact from bilateral hip arthroplasties. There is no evidence for a bowel obstruction. The appendix is not visualized. There is gas within the bladder, likely from recent catheterization. There is no hydronephrosis. Small bilateral renal calculi are noted. There are suspected renal cyst. Probable small bladder calculus. Interval placement of a bifurcated endovascular aortoiliac stent graft is noted. Aneurysm sac is unchanged, measuring 6.8 cm in size since CT of April 19, 2022. Iliac limbs are patent. There is no evidence for rupture. No endoleak is noted, likely typed positioning from a lumbar artery. Bilateral renal arteries are patent. Celiac axis and superior mesenteric artery are patent. Moderate atherosclerotic plaque is noted. No groin pseudoaneurysm is noted. Minimal stranding within the groins is postprocedural and expected in the early postoperative setting. IMPRESSION: 1. Interval placement of a bifurcated endovascular aortoiliac stent graft. No change in aneurysm sac size. No rupture. Endoleak, likely take 2, as described above. 2. Distended gallbladder. No pericholecystic stranding. 3. Colonic diverticulosis without evidence for acute diverticulitis. 4. Mild bilateral lower lobe airspace opacities, decreased since CT of April 19, 2022. ACT 112: Negative or not required by law. Electronically signed by: Walter Johnson M.D. 04/26/2022 7:07 AM Chest CTA 04/26/22 03:41 CT angio chest w con HISTORY: Shortness of breath. Fever. TECHNIQUE: Multiaxial CT images of the chest were performed following the intravenous administration of contrast to evaluate the aorta. Maximal intensity projection images were also obtained. COMPARISON STUDY: Chest CT 07/06/2020 and abdomen and pelvis CT 04/19/2022. FINDINGS: Stable mild aneurysmal dilatation of the ascending thoracic aorta m easuring up to 4.4 cm in diameter. No evidence for an aortic dissection. There is mild calcified plaque within the thoracic aorta. Study was not performed to evaluate the pulmonary arteries. However, the main pulmonary arteries appear patent. The thyroid gland enhances normally. There is a loop recorder within the left anterior chest wall. Please refer to the same day abdomen and pelvis CT for further evaluation of the abdominal structures. There is a mildly distended gallbladder which is partially visualized. There are are 2 subcentimeter right adrenal gland nodules. Normal esophagus. No mediastinal or hilar lymphadenopathy. Moderate calcified plaque within the coronary arteries. No pleural or pericardial effusions. No suspicious lytic are blastic osseous lesions. No pneumothorax. There is respiratory motion artifact. The central airways appear patent. Mild to moderate emphysema. Small cluster of tree-in-bud nodular opacities within the periphery the right upper lobe. Small patchy den sities within the base of the bilateral lower lobes have slightly improved in the interval. IMPRESSION: 1. 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 2. No evidence for an aortic dissection. 3. Emphysema. 4. Small patchy densities within the bases of the bilateral lower lobes have slightly improved in the interval. 5. Please refer to the same day abdomen and pelvis CT for further evaluation of the abdominal structures. ACT 112: Negative or not required by law. Electronically signed by: Mt Burroughs M.D. 04/26/2022 7:47 AM I & O Totals 24 Hours 04/25/22 04/26/22 04/27/22 06:59 06:59 06:59 Intake Total 100 / 100 Output Total 250 / 250 Balance -150 / -150 Cumulative 04/26/22 03:11 thru 04/26/22 06:05 Intake Total 100 Output Total 250 Balance -150 RT Ventilator Mngmt (Last Documented) Ventilator Ordered Settings Respiratory Rate 20 04/26/22 08:19 Ventilator - PT Measurements Respiratory Rate 20 Code Status & VTE Plan Code Status Mechanical ventilation but no cardiac compressions. Okay with electrical cardioversion and conservative management with medications VTE Prophylaxis Plan VTE Prophylaxis will be ordered: Yes Supervising Physician Co-Signing Physician Notes Patient was seen and examined independently I discussed the case with Branden DEE I reviewed pertinent past medical social family history and also the plan of care and agree with the plan of care. Reviewed and agree with excellent note by Branden DEE. Patient presents 1 day postop after having some issues overnight with weakness instability. He has baseline significant COPD. Temperature was measured in the ER. Patient has no other focal signs or symptoms of infection at this present time. Patient will be observed overnight cultures were obtained and will evaluate for sources of fever. Family request evaluation for possible rehabilitation stay. Examination reveals him to be alert and oriented x3 he is somewhat forgetful in casual conversation. Cardiac exam is regular (history of A. fib) with a systolic murmur ; lungs are clear with diminished air movement but no wheezes or egophony Abdomen NABS soft nontender I hear no bruits Extremities are warm with good capillary refill and distal pulses Any exceptions will be noted below PG Care Time/CCT Total # of Minutes Spent Total Time Spent with Patient: Total time spent is greater than 50% in coordination of care (as documented) at patient's floor/unit and/or counseling patient: 60 minutes Coding Level of Care Code 66785 Initial Inpt Care Lvl 3 Diagnoses Dyspnea R06.00 Weakness R53.1 S/P AAA repair using bifurcation graft Z95.828; Z86.79 Dementia F03.90 COPD (chronic obstructive pulmonary disease) J44.9 CKD (chronic kidney disease) N18.9 Hypertension I10 Hypertension type: essential hypertension Atrial fibrillation I48.0 Atrial fibrillation type: paroxysmal History of tobacco use Z87.891 Benign localized prostatic hyperplasia with lower urinary tract symptoms (LUTS) N40.1 Erectile dysfunction N52.9 Nocturnal hypoxia G47.34 Syncopal episodes R55 Syncope type: unspecified DVT prophylaxis Z29.9 Time Spent (min) 60 (1) Atrial fibrillation Atrial fibrillation type: paroxysmal Qualified Code(s): I48.0 - Paroxysmal atrial fibrillation (2) Syncopal episodes Syncope type: unspecified Qualified Code(s): R55 - Syncope and collapse (3) Hypertension Hypertension type: essential hypertension Qualified Code(s): I10 - Essential (primary) hypertension
[2022-04-26] MEDS ORDERED: ONDANSETRON INJ 2 MG/ML 2 ML VIAL IV PRN (10:55)
[2022-04-26] MEDS ORDERED: ALUMINUM/MAGNESIUM SUSP 30 ML UDC PO PRN (10:55)
[2022-04-26] MEDS ORDERED: ALBUTEROL HFA 8 GM INHALER INH PRN (10:55)
[2022-04-26] MEDS ORDERED: LEVALBUTEROL 1.25MG/0.5ML NEB ONE (11:04)
[2022-04-26] MEDS: LEVALBUTEROL 1.25MG/0.5ML NEB NEB SCH ×2 (11:12→19:14)
[2022-04-26] MEDS: ACETAMINOPHEN 325 MG TAB PO PRN ×2 (11:36→21:31)
[2022-04-26] MEDS: METOPROLOL SUCC 50MG EXT REL TAB PO SCH (11:42)
[2022-04-26] MEDS: FINASTERIDE 5 MG TAB PO SCH (11:43)
[2022-04-26] MEDS: DOCUSATE SODIUM 100 MG CAP PO SCH ×2 (11:43→21:20)
[2022-04-26] MEDS: PANTOprazole 40 MG TAB PO SCH (11:43)
[2022-04-26] MEDS: TELMISARTAN 40 MG TAB PO SCH (11:44)
[2022-04-26] MEDS: CEROVITE ADV FORMULA TAB PO SCH (11:44)
[2022-04-26] MEDS: POTASSIUM CHLORIDE CRTAB 20 MEQ TABCR PO SCH (11:44)
[2022-04-26] MEDS: MAGNESIUM OXIDE 400 MG TAB PO SCH (11:45)
--- NOTE | 2022-04-26 14:02 | XRay Report ---
XR chest 1V portable HISTORY: SEPSIS COMPARISON: None. FINDINGS: Mild interstitial thickening at the lung bases, unchanged. No new focal lung consolidations . Mild emphysema. Cardiac silhouette is normal in size. No pleural effusions. No pneumothorax. IMPRESSION: No significant change compared to the prior study. No acute process. ACT 112: Negative or not required by law. Electronically signed by: Mt Burroughs M.D. 04/26/2022 7:48 AM
[2022-04-26] MEDS: ARTIFICIAL TEARS OP SCH ×2 (14:03→21:18)
--- NOTE | 2022-04-26 15:22 | Consultation ---
Date of Consultation April 26, 2022 Assessment & Plan (1) S/P endovascular aneurysm repair: 71-year-old gentleman who is doing well after his endograft repair. His CAT scan done on this admission shows the graft to be patent. There is good proximal and distal seals. 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 Over 80% of these type II endoleak's do subside on their own. He did come in with a mildly elevated white count and low-grade fever which is present at times after an endograft repair. The larger of the sac is at the time of the repair the higher the incidence of the fever and white count elevation due to thrombosis of the remaining aneurysm sac and inflammation from the thrombotic event. Follow along at this point during his hospital stay. History of Present Illness Reason for Consultation: Generalized weakness Attending Physician: Maximiliano Chacon MD History of Present Illness This is an 81-year-old gentleman who had a PEVVR done earlier this week. He was home for 24 hours. He awoke at 3 AM. He was weak and diaphoretic and had to sit down. His was concerned and took him into the emergency department. Upon presentation he did have a low-grade fever and a slightly increased white count. Denies any back pain other than his usual back and hip pain. His is concerned that he is weak and is unable to ambulate. Prior to his surgery his said all he did all day was sitting in a chair and did not do anything as far as ambulation. Allergies Allergy/AdvReac Type Severity Reaction Status Date / Time No Known Drug Allergies Allergy Verified 04/24/22 08:10 Home Medications Medication Instructions Recorded Confirmed Type Oxygen Home #2 L 12/08/19 04/26/22 Rx nebulizers #1 ea 09/07/20 04/26/22 Rx aflibercept 2 mg/0.05 mL 0 mg intravitreal UD 06/03/21 04/26/22 History intravitreal solution for injection (Eylea) famotidine 20 mg tablet (Pepcid) 20 mg PO HS 06/03/21 04/26/22 History peg 400-propylene glycol (PF) 0.4 1 drp OPB BID 06/03/21 04/26/22 History %-0.3 % eye drops in a dropperette (Systane (PF)) telmisartan 40 mg tablet (Micardis) 40 mg PO QAM 06/03/21 04/26/22 History celecoxib 200 mg capsule (Celebrex) 200 mg PO QAM #90 caps 06/06/21 04/26/22 Rx metoprolol succinate 50 mg 50 mg PO QAM #90 tabs 08/29/21 04/26/22 Rx tablet,extended release 24 hr (Toprol XL) sildenafil 100 mg tablet (Viagra) 100 mg PO DAILY PRN sexual 09/11/21 04/26/22 Rx activity #30 tabs montelukast 10 mg tablet 10 mg PO HS #90 tabs 12/06/21 04/26/22 Rx (Singulair) Flutter Valve #1 ea 12/29/21 04/26/22 Rx albuterol sulfate 90 mcg/actuation 2 inh inhalation Q4H PRN shortness 12/29/21 04/26/22 Rx aerosol inhaler (Ventolin HFA) of breath #8.5 grams budesonide 160 mcg-glycopyr 9 2 inh inhalation BID COPD #10.7 12/29/21 04/26/22 Rx mcg-formot 4.8 mcg/actuation HFA grams inhaler (Breztri Aerosphere) levalbuterol HCl 1.25 mg/3 mL 1.25 mg (3 mL) inhalation Q4 PRN 12/29/21 04/26/22 Rx solution for nebulization (Xopenex) Shortness Of Breath #180 mL magnesium oxide 400 mg PO QAM #0 caps 01/16/22 04/26/22 History zolpidem 5 mg tablet 5 mg PO HS #30 tabs 01/16/22 04/26/22 Rx epinephrine 0.3 mg/0.3 mL 0.3 mg IM UD PRN bronchodilation 04/20/22 04/26/22 History injection, auto-injector (EpiPen 2-Marco Antonio) finasteride 5 mg tablet 5 mg PO QAM 04/20/22 04/26/22 History pantoprazole 40 mg tablet,delayed 40 mg PO QAM 04/20/22 04/26/22 History release (Protonix) potassium chloride 20 mEq 20 meq PO QAM 04/20/22 04/26/22 History tablet,extended release rpybgnwxazhj-gkemnkac-jgicro 1 tab PO DAILY 04/24/22 04/26/22 History tablet (Multivitamin 50 Plus) docusate sodium 100 mg capsule 100 mg PO BID constipation #60 caps 04/25/22 04/26/22 Rx (Colace) oxycodone-acetaminophen 5 mg-325 1 - 2 tab PO TID PRN pain #15 tabs 04/25/22 04/26/22 Rx mg tablet (Percocet) Patient History Medical History Anemia Aneurysm of infrarenal abdominal aorta 04/18/2022 - 7cm x 6.7 cm Atrial fibrillation dx 7 yrs ago BPH (benign prostatic hyperplasia) Carotid artery stenosis CKD (chronic kidney disease) COPD (chronic obstructive pulmonary disease) Dementia Erectile dysfunction GERD (gastroesophageal reflux disease) Hearing loss Hypertension Implantable loop recorder present dr jacobson - 3 yrs ago Insomnia Neutrophilic leukocytosis Nocturnal hypoxia o2 2l at hs Osteoarthritis Syncopal episodes summer 2020 Surgical History History of left hip replacement History of right hip replacement Hx of appendectomy Hx of colonoscopy S/P AAA repair using bifurcation graft Family History Other Coronary heart disease Diabetes Social History Smoking Status: Former smoker Tobacco Type: Cigarettes Age Started Using Tobacco: 18; packs per day: 1; Years Smoked: 66; Cigarettes Per Day: 20; Smoking End Date: 2014; Second Hand Exposure: No; Do You Dip or Chew Tobacco: No; Tobacco Cessation Education Requested by Patient: No Hx Alcohol Use: No Hx Substance Use: No Preferred Language: [place] Island[place] Communication Ability: Effective Forms Designer Required: No Beliefs That Will Affect Care: None marital status: Current Living Situation: Spouse current occupational status: retired other: [employer] from [id number]. Discharge rank E4. No combat injury Feels Safe at Home: Yes Safety Concerns: Feels Safe At This Time Dental Care, Regularly: No Seatbelt Use: always Sunscreen Use: Yes Assistive Devices: Denture - Upper, Glasses and Oxygen - at Night Review of Systems Review of Systems: All systems reviewed & are unremarkable except as noted in HPI & below Physical Exam Constitutional: WD/WN, vitals as above Respiratory: normal respiratory effort; no respiratory distress Cardiovascular: Rate/Rhythm: regular rate and regular rhythm Vessels: normal peripheral pulses Extremities: normal capillary refill Gastrointestinal (Abdomen): Inspection/Auscultation: abdomen not distended Percussion/Palpation: abdomen soft; abdomen nontender, no guarding and no pulsatile mass Musculoskeletal: no cyanosis or clubbing, extremities motor strength 5/5 Neurologic: moves all extremities Psychiatric: Orientation: alert and oriented x 3 Results & Data ([facility]) Vital Signs (Past 12 Hours) Vital Signs Temp Pulse Resp BP Pulse Ox O2 Del Method O2 Flow Rate 04/26/22 15:06 84 20 156/88 H 92 Room Air 04/26/22 12:29 94 Room Air 04/26/22 11:32 83 20 158/75 H 94 Room Air 04/26/22 11:11 84 20 95 Room Air 04/26/22 09:56 76 20 158/86 H 94 Room Air 04/26/22 08:19 37.0 C 71 20 143/69 H 98 Nasal Cannula 2 04/26/22 07:30 73 22 164/77 H 98 Nasal Cannula 2 04/26/22 07:00 18 04/26/22 06:09 75 18 142/67 H 96 Nasal Cannula 2 04/26/22 05:17 37.5 C 79 23 151/63 H 96 Nasal Cannula 2 04/26/22 04:41 Nasal Cannula 2 04/26/22 04:40 83 17 137/68 96 Nasal Cannula 2 04/26/22 03:37 2 L Nasal Cannula 04/26/22 03:37 Nasal Cannula 2 04/26/22 03:37 2
--- NOTE | 2022-04-26 17:36 | Electrocardiogram Report ---
Test Reason : Blood Pressure : / mmHG Vent. 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
[2022-04-26] MEDS: oxyCODONE HCL IR 5 MG TAB (IMMEDIATE RELEASE) PO PRN (20:10)
[2022-04-26] MEDS: BREZTRI EXT SCH (21:19)
[2022-04-26] MEDS: MONTELUKAST SODIUM 10 MG TABLET PO SCH (21:20)
[2022-04-26] MEDS: FAMOTIDINE 20 MG TAB PO SCH (21:20)
[2022-04-27] MEDS: LEVALBUTEROL 1.25MG/0.5ML NEB NEB SCH ×2 (07:21→19:55)
[2022-04-27] MEDS: BREZTRI EXT SCH ×2 (09:04→20:35)
[2022-04-27] MEDS: ARTIFICIAL TEARS OP SCH ×2 (09:05→20:35)
[2022-04-27 09:12] LABS: Hematocrit (blood only) 31.6 % (40.1-51.0); Hemoglobin 10.3 g/dl (14.0-18.0); Mean Corpuscular Hemoglobin 30.2 pg (25.0-34.0); Mean Corpuscular Hgb Conc 32.6 g/dL (32.0-36.0); Mean Corpuscular Volume 92.7 fL (80.0-100.0); Mean Platelet Volume 9.9 fL (9.4-12.4); Platelet Count 142 K/uL (130-400); RDW Coefficient of Variation 13.2 % (11.5-14.5); RDW Standard Deviation 44.9 fL (36.4-46.3); Red Blood Count 3.41 M/uL (4.63-6.08); White Blood Count 12.76 K/ul (4.8-10.8)
--- NOTE | 2022-04-27 09:24 | Hospitalist Progress Note ---
Date of Service April 27, 2022 Assessment & Plan (1) Fever: Plan: Pt with recurrent intermittent fever without clear infectious source Surgery feels maybe from thrombosis in aneurysmal sack 101.5 04/27, additional blood cultures , check crp, follow urine results pending (2) Weakness: Plan: Multifactoral, feels she cannot care for him at home, hopeful for rehab Pt with weakness and confusion on presentation, will rule out metabolic encephalopathy, maybe toxic encephalopathy from home ambien (3) S/P AAA repair using bifurcation graft: Plan: Endovascular repair by Dr Brody (4) COPD (chronic obstructive pulmonary disease): Plan: Patient has COPD class C with recent FEV1 of 56%. He follows with Dr. Interiano in the outpatient office. He is currently managed on Breztri 2 inhalations twice daily as well as albuterol nebulizer treatment in the morning and in the evening. Patient has chronic history of complaints of shortness of breath and has frequently been placed on steroid tapers and antibiotic treatment for exasperation Recently the patient attempted to call the pulmonary office but was unable to be seen. He then went to his primary care physician and was given a prednisone taper for 16 days starting 04/03/2022. Patient just completed prednisone taper on 04/19/2022 Patient is not hypoxic. CT scan of the chest shows chronic groundglass opacities with no evidence of acute abnormalities We will continue patient on home inhaler of budesonide/glycopyrrolate/formoterol as well as scheduled albuterol nebulizer treatments twice daily Maintain SaO2 between 88 and 92% has nocturnal hypoxia on supplemental oxygen (5) Atrial fibrillation: Plan: is on metoprolol xl and had implanted loop recorder loop recorder for previous syncopal episodes, did not have syncope on presentation (6) CKD (chronic kidney disease): Plan: stable stage 3 (7) Dementia: (8) Benign localized prostatic hyperplasia with lower urinary tract symptoms (LUTS): Plan: on finesteride, not on flomax with syncope has condom cath on right now (9) DVT prophylaxis: Plan: with recent endovascular repair not on chemoprophylaxis Admission and Anticipated Discharge Date Admission Date: April 26, 2022 Subjective pt is without focal complaints fever to 101.5 pending urine culture wounds inspected and look good Review of Systems Review of Systems: Mild distress and fatigue no headache, no visual changes no speech or swallowing issues no chest pain, pressure or palpitations no shortness of breath, cough or wheezes no abdominal pain, nausea or vomiting, diarrhea or constipation no dysuria, hematuria or frequency no focal joint pain or swelling no back pain, CVA tenderness or radicular pain groin vascular access sites are not tender or swollen no focal signs of weakness or numbness or altered sensation no complaints of anxiety or depression.. Physical Exam Physical Exam: The patient appeared well nourished and normally developed. Vital signs as documented. Head exam is normocephalic atraumatic Neck is without JVD, thyromegaly, or carotid bruits. Lungs are clear to auscultation, no focal loss of breath sounds Cardiac exam, Rhythm is regular.. No murmurs, rubs or gallops. Abdominal exam reveals normal bowel sounds, soft non tender, no masses Extremities are nonedematous and both pedal pulses are present Neurologic exam is alert and oriented, no focal loss of strength or sensation Skin is without redness or fluctuance in groin access sites Psychologically is without concerns for anxiety or depression.. Results & Data Results & Data ([facility]) Vital Signs (Past 12 Hours) Vital Signs Temp Pulse Pulse Resp BP Pulse Ox Pulse Ox 04/27/22 07:25 101.5 F H 88 18 161/80 H 97 04/27/22 07:22 87 18 94 04/27/22 06:33 16 96 04/27/22 05:08 99.5 F 83 18 152/81 H 97 04/27/22 06:02 16 96 04/27/22 05:30 16 95 04/27/22 05:00 16 95 04/27/22 04:30 16 95 04/27/22 04:00 16 96 04/27/22 03:30 16 95 04/27/22 03:00 18 97 04/27/22 02:30 18 95 04/27/22 02:00 16 95 04/27/22 01:30 18 95 04/27/22 01:00 18 95 04/27/22 00:30 16 96 04/27/22 00:00 16 96 04/26/22 23:30 16 96 04/26/22 23:00 16 96 04/26/22 22:30 16 96 04/26/22 22:00 16 97 04/26/22 21:30 16 96 04/26/22 22:20 96 04/26/22 22:20 04/26/22 22:20 96 04/26/22 21:26 23 96 04/26/22 21:25 100.8 F H 87 23 162/68 H 96 O2 Del Method O2 Del Method O2 Flow Rate 04/27/22 07:25 Nasal Cannula 2 04/27/22 07:22 Nasal Cannula 2 04/27/22 06:33 Nasal Cannula 2 04/27/22 05:08 Nasal Cannula 2 04/27/22 06:02 Nasal Cannula 2 04/27/22 05:30 Nasal Cannula 2 04/27/22 05:00 Nasal Cannula 2 04/27/22 04:30 Nasal Cannula 2 04/27/22 04:00 Nasal Cannula 2 04/27/22 03:30 Nasal Cannula 2 04/27/22 03:00 Nasal Cannula 2 04/27/22 02:30 Nasal Cannula 2 04/27/22 02:00 Nasal Cannula 2 04/27/22 01:30 Nasal Cannula 2 04/27/22 01:00 Nasal Cannula 2 04/27/22 00:30 Nasal Cannula 2 04/27/22 00:00 Nasal Cannula 2 04/26/22 23:30 Nasal Cannula 2 04/26/22 23:00 Nasal Cannula 2 04/26/22 22:30 Nasal Cannula 2 04/26/22 22:00 Nasal Cannula 2 04/26/22 21:30 Nasal Cannula 2 04/26/22 22:20 Nasal Cannula 2 04/26/22 22:20 Room Air, Nasal Cannula 2 04/26/22 22:20 Nasal Cannula 04/26/22 21:26 Nasal Cannula 04/26/22 21:25 Nasal Cannula 2 PG Care Time/CCT Total # of Minutes Spent Total Time Spent with Patient: Total time spent is greater than 50% in coordination of care (as documented) at patient's floor/unit and/or counseling patient: Coding Level of Care Code 85164 Subseq Hosp Care Lvl 3 Diagnoses Fever R50.9 Weakness R53.1 S/P AAA repair using bifurcation graft Z95.828; Z86.79 COPD (chronic obstructive pulmonary disease) J44.9 Atrial fibrillation I48.0 Atrial fibrillation type: paroxysmal CKD (chronic kidney disease) N18.9 Dementia F03.90 Benign localized prostatic hyperplasia with lower urinary tract symptoms (LUTS) N40.1 DVT prophylaxis Z29.9 (1) Atrial fibrillation Atrial fibrillation type: paroxysmal Qualified Code(s): I48.0 - Paroxysmal atrial fibrillation
[2022-04-27 09:30] LABS: BUN Creatinine Ratio 11.8 (10-20); Calcium 8.3 mg/dl (8.5-10.1); Creatinine Clr Calc Pharmacy 52.5 ml/min; Est GFR (African American) 71.6 ml/min; Est GFR (Non-African American) 61.8 ml/min; Magnesium 1.7 mg/dl (1.7-2.4); Potassium 3.7 mmol/L (3.5-5.1)
[2022-04-27] MEDS: ACETAMINOPHEN 325 MG TAB PO PRN ×3 (10:40→23:31)
[2022-04-27] MEDS: DOCUSATE SODIUM 100 MG CAP PO SCH ×2 (10:42→20:49)
[2022-04-27] MEDS: FINASTERIDE 5 MG TAB PO SCH (10:42)
[2022-04-27] MEDS: MAGNESIUM OXIDE 400 MG TAB PO SCH (10:43)
[2022-04-27] MEDS: METOPROLOL SUCC 50MG EXT REL TAB PO SCH (10:43)
[2022-04-27] MEDS: CEROVITE ADV FORMULA TAB PO SCH (10:43)
[2022-04-27] MEDS: PANTOprazole 40 MG TAB PO SCH (10:44)
[2022-04-27] MEDS: TELMISARTAN 40 MG TAB PO SCH (10:44)
[2022-04-27] MEDS: POTASSIUM CHLORIDE CRTAB 20 MEQ TABCR PO SCH (10:44)
[2022-04-27] MEDS: SODIUM CHLORIDE 0.9% 1000ML 1,000 ML IV SCH (11:34)
--- NOTE | 2022-04-27 13:21 | Surgery Progress Note ---
Date of Service April 27, 2022 Assessment & Plan (1) S/P endovascular aneurysm repair: Plan: Stable from a vascular standpoint. If no source is found for his intermittent fever, it can be from thrombosis of the aneurysm sac post repair. We will see him in the office post discharge. Admission and Anticipated Discharge Date Admission Date: April 26, 2022 Subjective Claims to be feeling better. Feeling stronger according to patient. states he needs rehab to get stronger cause he just sits at home on the couch all day and doesn't do anything. Physical Exam Constitutional: WD/WN, vitals as above Intermittent low grade fever Cardiovascular: Vessels: femoral pulses present Extremities: normal capillary refill Gastrointestinal (Abdomen): Inspection/Auscultation: abdomen normal to inspection; abdomen not distended Percussion/Palpation: abdomen soft; abdomen nontender Skin: + incision (puncture sites without problems) Results & Data ([facility]) Vital Signs (Past 12 Hours) Vital Signs Temp Pulse Pulse Resp BP Pulse Ox O2 Del Method 04/27/22 10:50 Nasal Cannula 04/27/22 07:25 38.6 C H 88 18 161/80 H 97 Nasal Cannula 04/27/22 07:22 87 18 94 Nasal Cannula 04/27/22 06:33 16 96 Nasal Cannula 04/27/22 05:08 37.5 C 83 18 152/81 H 97 Nasal Cannula 04/27/22 06:02 16 96 Nasal Cannula 04/27/22 05:30 16 95 Nasal Cannula 04/27/22 05:00 16 95 Nasal Cannula 04/27/22 04:30 16 95 Nasal Cannula 04/27/22 04:00 16 96 Nasal Cannula 04/27/22 03:30 16 95 Nasal Cannula 04/27/22 03:00 18 97 Nasal Cannula 04/27/22 02:30 18 95 Nasal Cannula 04/27/22 02:00 16 95 Nasal Cannula 04/27/22 01:30 18 95 Nasal Cannula O2 Flow Rate 04/27/22 10:50 2 04/27/22 07:25 2 04/27/22 07:22 2 04/27/22 06:33 2 04/27/22 05:08 2 04/27/22 06:02 2 04/27/22 05:30 2 04/27/22 05:00 2 04/27/22 04:30 2 04/27/22 04:00 2 04/27/22 03:30 2 04/27/22 03:00 2 04/27/22 02:30 2 04/27/22 02:00 2 04/27/22 01:30 2
[2022-04-27] MEDS: MONTELUKAST SODIUM 10 MG TABLET PO SCH (20:49)
[2022-04-27] MEDS: FAMOTIDINE 20 MG TAB PO SCH (20:49)
[2022-04-27] MEDS: MELATONIN 3 MG TAB PO PRN (21:21)
[2022-04-28] MEDS: SODIUM CHLORIDE 0.9% 1000ML 1,000 ML IV SCH (02:50)
[2022-04-28] MEDS: LEVALBUTEROL 1.25MG/0.5ML NEB NEB SCH ×2 (07:14→20:00)
[2022-04-28 07:18] LABS: Hematocrit (blood only) 30.2 % (40.1-51.0); Hemoglobin 9.7 g/dl (14.0-18.0); Mean Corpuscular Hemoglobin 30.5 pg (25.0-34.0); Mean Corpuscular Hgb Conc 32.1 g/dL (32.0-36.0); Mean Platelet Volume 9.9 fL (9.4-12.4); Platelet Count 178 K/uL (130-400); RDW Coefficient of Variation 13.2 % (11.5-14.5); RDW Standard Deviation 46.3 fL (36.4-46.3); Red Blood Count 3.18 M/uL (4.63-6.08); White Blood Count 9.49 K/ul (4.8-10.8)
[2022-04-28 07:51] LABS: C Reactive Protein 24.68 mg/dl (0-0.5); Calcium 7.9 mg/dl (8.5-10.1); Est GFR (African American) 72.4 ml/min; Est GFR (Non-African American) 62.4 ml/min; Magnesium 1.8 mg/dl (1.7-2.4); Potassium 3.5 mmol/L (3.5-5.1)
[2022-04-28] MEDS: TELMISARTAN 40 MG TAB PO SCH (08:50)
[2022-04-28] MEDS: PANTOprazole 40 MG TAB PO SCH (08:50)
[2022-04-28] MEDS: BREZTRI EXT SCH ×2 (08:50→20:16)
[2022-04-28] MEDS: METOPROLOL SUCC 50MG EXT REL TAB PO SCH (08:50)
[2022-04-28] MEDS: CEROVITE ADV FORMULA TAB PO SCH (08:50)
[2022-04-28] MEDS: MAGNESIUM OXIDE 400 MG TAB PO SCH (08:50)
[2022-04-28] MEDS: FINASTERIDE 5 MG TAB PO SCH (08:50)
[2022-04-28] MEDS: ARTIFICIAL TEARS OP SCH ×2 (08:51→20:17)
[2022-04-28] MEDS: DOCUSATE SODIUM 100 MG CAP PO SCH ×2 (08:53→20:16)
[2022-04-28] MEDS: POTASSIUM CHLORIDE CRTAB 20 MEQ TABCR PO SCH (08:54)
[2022-04-28] MEDS: ACETAMINOPHEN 325 MG TAB PO PRN (11:59)
--- NOTE | 2022-04-28 12:35 | Hospitalist Progress Note ---
Date of Service April 28, 2022 Assessment & Plan (1) Fever: Plan: Pt with recurrent intermittent fever without clear infectious source, no antibiotics at this time Surgery feels maybe from thrombosis in aneurysmal sack 04/27, additional blood cultures negative to date, elevated crp to 24. initial procal negative follow urine results pending if no source and fevers continue will re CT Abd/pelvis, if it is from thorombosis of anuerysmal sac should downtrend fever curve over time (2) Weakness: Plan: Multifactoral, feels she cannot care for him at home, hopeful for rehab Pt with weakness and confusion on presentation, will rule out metabolic encephalopathy, maybe toxic encephalopathy from home ambien (3) S/P AAA repair using bifurcation graft: Plan: Endovascular repair by Dr Brody (4) COPD (chronic obstructive pulmonary disease): Plan: Patient has COPD class C with recent FEV1 of 56%. He follows with Dr. Interiano in the outpatient office. He is currently managed on Breztri 2 inhalations twice daily as well as albuterol nebulizer treatment in the morning and in the evening. Patient has chronic history of complaints of shortness of breath and has frequently been placed on steroid tapers and antibiotic treatment for exasperation Recently the patient attempted to call the pulmonary office but was unable to be seen. He then went to his primary care physician and was given a prednisone taper for 16 days starting 04/03/2022. Patient just completed prednisone taper on 04/19/2022 Patient is not hypoxic. CT scan of the chest shows chronic groundglass opacities with no evidence of acute abnormalities We will continue patient on home inhaler of budesonide/glycopyrrolate/formoterol as well as scheduled albuterol nebulizer treatments twice daily Maintain SaO2 between 88 and 92% has nocturnal hypoxia on supplemental oxygen (5) Atrial fibrillation: Plan: is on metoprolol xl and had implanted loop recorder loop recorder for previous syncopal episodes, did not have syncope on presentation (6) CKD (chronic kidney disease): Plan: stable stage 3 (7) Dementia: (8) Benign localized prostatic hyperplasia with lower urinary tract symptoms (LUTS): Plan: on finesteride, not on flomax with syncope has condom cath on right now (9) DVT prophylaxis: Plan: with recent endovascular repair not on chemoprophylaxis Admission and Anticipated Discharge Date Admission Date: April 27, 2022 Subjective pt with recurrent fever and encephalopathy associated with it no obvious source, surgery cites inflammation from endograft does not feel she can care for him at home Review of Systems Review of Systems: Mild distress and fatigue no headache, no visual changes no speech or swallowing issues no chest pain, pressure or palpitations no shortness of breath, cough or wheezes no abdominal pain, nausea or vomiting, diarrhea or constipation no dysuria, hematuria or frequency no focal joint pain or swelling no back pain, CVA tenderness or radicular pain groin vascular access sites remain non tender or swollen no focal signs of weakness or numbness or altered sensation no complaints of anxiety or depression.. Physical Exam Physical Exam: The patient appeared well nourished and normally developed. Vital signs as documented. Head exam is normocephalic atraumatic Neck is without JVD, thyromegaly, or carotid bruits. Lungs are clear to auscultation, no focal loss of breath sounds Cardiac exam, Rhythm is regular.. No murmurs, rubs or gallops. Abdominal exam reveals normal bowel sounds, soft non tender, no masses Extremities are nonedematous and both pedal pulses are present Neurologic exam is alert and oriented, no focal loss of strength or sensation Skin is without redness or fluctuance in groin access sites Psychologically is without concerns for anxiety or depression.. Results & Data Results & Data ([facility]) Vital Signs (Past 12 Hours) Vital Signs Temp Pulse Pulse Resp BP BP Pulse Ox 04/28/22 09:02 04/28/22 09:00 20 96 04/28/22 08:30 20 04/28/22 08:00 20 96 04/28/22 07:30 20 96 04/28/22 07:00 20 96 04/28/22 06:30 20 96 04/28/22 07:30 99.1 F 78 20 150/77 H 96 04/28/22 07:14 78 16 96 04/28/22 06:00 04/28/22 03:00 18 04/28/22 03:29 99.7 F H 04/27/22 23:29 100.9 F H 81 18 167/84 H 93 O2 Del Method O2 Flow Rate 04/28/22 09:02 Nasal Cannula 2 04/28/22 09:00 Nasal Cannula 2 04/28/22 08:30 Nasal Cannula 2 04/28/22 08:00 Nasal Cannula 2 04/28/22 07:30 Nasal Cannula 2 04/28/22 07:00 Nasal Cannula 2 04/28/22 06:30 Nasal Cannula 2 04/28/22 07:30 Nasal Cannula 2 04/28/22 07:14 Nasal Cannula 2 04/28/22 06:00 Nasal Cannula 2 04/28/22 03:00 Nasal Cannula 2 04/28/22 03:29 04/27/22 23:29 Nasal Cannula 2 PG Care Time/CCT Total # of Minutes Spent Total Time Spent with Patient: Total time spent is greater than 50% in coordination of care (as documented) at patient's floor/unit and/or counseling patient: Coding Level of Care Code 32110 Subseq Hosp Care Lvl 2 Diagnoses Fever R50.9 Weakness R53.1 S/P AAA repair using bifurcation graft Z95.828; Z86.79 COPD (chronic obstructive pulmonary disease) J44.9 Atrial fibrillation I48.0 Atrial fibrillation type: paroxysmal CKD (chronic kidney disease) N18.9 Dementia F03.90 Benign localized prostatic hyperplasia with lower urinary tract symptoms (LUTS) N40.1 DVT prophylaxis Z29.9 (1) Atrial fibrillation Atrial fibrillation type: paroxysmal Qualified Code(s): I48.0 - Paroxysmal atrial fibrillation
[2022-04-28] MEDS: MONTELUKAST SODIUM 10 MG TABLET PO SCH (20:16)
[2022-04-28] MEDS: MELATONIN 3 MG TAB PO PRN (20:16)
[2022-04-28] MEDS: FAMOTIDINE 20 MG TAB PO SCH (20:17)
[2022-04-29 07:03] LABS: Hematocrit (blood only) 30.4 % (40.1-51.0); Hemoglobin 9.7 g/dl (14.0-18.0); Mean Corpuscular Hemoglobin 30.3 pg (25.0-34.0); Mean Corpuscular Hgb Conc 31.9 g/dL (32.0-36.0); Mean Platelet Volume 10.1 fL (9.4-12.4); Platelet Count 192 K/uL (130-400); RDW Coefficient of Variation 13.2 % (11.5-14.5); White Blood Count 7.47 K/ul (4.8-10.8)
[2022-04-29] MEDS: LEVALBUTEROL 1.25MG/0.5ML NEB NEB SCH ×2 (07:08→20:03)
[2022-04-29 07:40] LABS: BUN Creatinine Ratio 15.1 (10-20); Calcium 8.2 mg/dl (8.5-10.1); Creatinine Clr Calc Pharmacy 54.5 ml/min; Est GFR (African American) 74.9 ml/min; Est GFR (Non-African American) 64.6 ml/min; Magnesium 1.8 mg/dl (1.7-2.4); Potassium 3.6 mmol/L (3.5-5.1)
--- NOTE | 2022-04-29 07:52 | Hospitalist Progress Note ---
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 initial procal negative follow urine results pending if no source and fevers continue will re CT Abd/pelvis, if it is from thorombosis of anuerysmal sac, fever curve downtrend at this time and negative cultures (2) Weakness: Plan: Multifactoral, feels she cannot care for him at home, hopeful for rehab Pt with weakness and confusion on presentation, will rule out metabolic encephalopathy, maybe toxic encephalopathy from home ambien (3) S/P AAA repair using bifurcation graft: Plan: Endovascular repair by Dr Brody (4) COPD (chronic obstructive pulmonary disease): Plan: Patient has COPD class C with recent FEV1 of 56%. He follows with Dr. Interiano in the outpatient office. He is currently managed on Breztri 2 inhalations twice daily as well as albuterol nebulizer treatment in the morning and in the evening. Patient has chronic history of complaints of shortness of breath and has frequently been placed on steroid tapers and antibiotic treatment for exaspera tion Recently the patient attempted to call the pulmonary office but was unable to be seen. He then went to his primary care physician and was given a prednisone taper for 16 days starting 04/03/2022. Patient just completed prednisone taper on 04/19/2022 Patient is not hypoxic. CT scan of the chest shows chronic groundglass opacities with no evidence of acute abnormalities We will continue patient on home inhaler of budesonide/glycopyrrolate/formoterol as well as scheduled albuterol nebulizer treatments twice daily Maintain SaO2 between 88 and 92% has nocturnal hypoxia on supplemental oxygen (5) Atrial fibrillation: Plan: is on metoprolol xl and had implanted loop recorder loop recorder for previous syncopal episodes, did not have syncope on presentation (6) CKD (chronic kidney disease): Plan: stable stage 3 (7) Dementia: (8) Benign localized prostatic hyperplasia with lower urinary tract symptoms (LUTS): Plan: on finesteride, not on flomax with syncope has condom cath on right now (9) DVT prophylaxis: Plan: with recent endovascular repair not on chemoprophylaxis Admission and Anticipated Discharge Date Admission Date: April 27, 2022 Subjective pt is now with fever curve trending down, family does not feel they can care for him at home, he has no focal issues at this time Review of Systems Review of Systems: Mild distress and fatigue no headache, no visual changes no speech or swallowing issues no chest pain, pressure or palpitations no shortness of breath, cough or wheezes no abdominal pain, nausea or vomiting, diarrhea or constipation no dysuria, hematuria or frequency no focal joint pain or swelling no back pain, CVA tenderness or radicular pain groin vascular access sites remain non tender or swollen no focal signs of weakness or numbness or altered sensation no complaints of anxiety or depression.. Physical Exam Physical Exam: The patient appeared well nourished and normally developed. Vital signs as documented. Head exam is normocephalic atraumatic Neck is without JVD, thyromegaly, or carotid bruits. Lungs are clear to auscultation, no focal loss of breath sounds Cardiac exam, Rhythm is regular.. No murmurs, rubs or gallops. Abdominal exam reveals normal bowel sounds, soft non tender, no masses Extremities are nonedematous and both pedal pulses are present Neurologic exam is alert and oriented, no focal loss of strength or sensation Skin is without redness or fluctuance in groin access sites Psychologically is without concerns for anxiety or depression.. Results & Data Results & Data ([facility]) Vital Signs (Past 12 Hours) Vital Signs Temp Pulse Pulse Resp BP Pulse Ox O2 Del Method 04/29/22 07:09 74 22 97 Nasal Cannula 04/29/22 01:32 98.4 F 81 20 159/76 H 97 Nasal Cannula 04/28/22 20:19 98.1 F 80 18 163/78 H 92 Nasal Cannula 04/28/22 20:02 83 89 L Room Air O2 Flow Rate 04/29/22 07:09 2 04/29/22 01:32 2 04/28/22 20:19 2 04/28/22 20:02 PG Care Time/CCT Total # of Minutes Spent Total Time Spent with Patient: Total time spent is greater than 50% in coordination of care (as documented) at patient's floor/unit and/or counseling patient: Coding Level of Care Code 08255 Subseq Hosp Care Lvl 2 Diagnoses Fever R50.9 Weakness R53.1 S/P AAA repair using bifurcation graft Z95.828; Z86.79 COPD (chronic obstructive pulmonary disease) J44.9 Atrial fibrillation I48.0 Atrial fibrillation type: paroxysmal CKD (chronic kidney disease) N18.9 Dementia F03.90 Benign localized prostatic hyperplasia with lower urinary tract symptoms (LUTS) N40.1 DVT prophylaxis Z29.9 (1) Atrial fibrillation Atrial fibrillation type: paroxysmal Qualified Code(s): I48.0 - Paroxysmal atrial fibrillation
[2022-04-29] MEDS: DOCUSATE SODIUM 100 MG CAP PO SCH ×2 (08:42→20:58)
[2022-04-29] MEDS: POTASSIUM CHLORIDE CRTAB 20 MEQ TABCR PO SCH (08:42)
[2022-04-29] MEDS: PANTOprazole 40 MG TAB PO SCH (08:42)
[2022-04-29] MEDS: TELMISARTAN 40 MG TAB PO SCH (08:42)
[2022-04-29] MEDS: MAGNESIUM OXIDE 400 MG TAB PO SCH (08:42)
[2022-04-29] MEDS: ARTIFICIAL TEARS OP SCH ×2 (08:42→20:58)
[2022-04-29] MEDS: FINASTERIDE 5 MG TAB PO SCH (08:42)
[2022-04-29] MEDS: CEROVITE ADV FORMULA TAB PO SCH (08:42)
[2022-04-29] MEDS: METOPROLOL SUCC 50MG EXT REL TAB PO SCH (08:42)
[2022-04-29] MEDS: BREZTRI EXT SCH ×2 (08:42→20:59)
[2022-04-29 19:33] LABS: Hematocrit (blood only) 28.3 % (40.1-51.0); Hemoglobin 9.2 g/dl (14.0-18.0); Mean Corpuscular Hemoglobin 30.4 pg (25.0-34.0); Mean Corpuscular Hgb Conc 32.5 g/dL (32.0-36.0); Mean Corpuscular Volume 93.4 fL (80.0-100.0); Mean Platelet Volume 9.5 fL (9.4-12.4); Platelet Count 186 K/uL (130-400); RDW Coefficient of Variation 13.1 % (11.5-14.5); Red Blood Count 3.03 M/uL (4.63-6.08)
[2022-04-29 20:01] LABS: Albumin Globulin Ratio 1.1 (0.9-2); BUN Creatinine Ratio 11.9 (10-20); Bilirubin,Total 0.4 mg/dl (0.2-1.0); Calcium 7.9 mg/dl (8.5-10.1); Est GFR (African American) 72.4 ml/min; Est GFR (Non-African American) 62.4 ml/min; Globulin 2.7 gm/dl (2.5-4.0); Potassium 3.5 mmol/L (3.5-5.1); Total Protein 5.7 gm/dl (6.0-8.3)
[2022-04-29] MEDS: MONTELUKAST SODIUM 10 MG TABLET PO SCH (20:58)
[2022-04-29] MEDS: FAMOTIDINE 20 MG TAB PO SCH (20:58)
[2022-04-30] MEDS: LEVALBUTEROL 1.25MG/0.5ML NEB NEB SCH ×2 (06:59→19:20)
[2022-04-30 08:00] LABS: Hematocrit (blood only) 30.9 % (40.1-51.0); Hemoglobin 9.8 g/dl (14.0-18.0); Mean Corpuscular Hgb Conc 31.7 g/dL (32.0-36.0); Mean Corpuscular Volume 94.5 fL (80.0-100.0); Mean Platelet Volume 10.1 fL (9.4-12.4); Platelet Count 195 K/uL (130-400); RDW Standard Deviation 45.3 fL (36.4-46.3); Red Blood Count 3.27 M/uL (4.63-6.08); White Blood Count 6.67 K/ul (4.8-10.8)
[2022-04-30] MEDS: BREZTRI EXT SCH ×2 (08:28→21:29)
[2022-04-30] MEDS: TELMISARTAN 40 MG TAB PO SCH (08:28)
[2022-04-30] MEDS: ARTIFICIAL TEARS OP SCH ×2 (08:28→21:28)
[2022-04-30] MEDS: PANTOprazole 40 MG TAB PO SCH (08:29)
[2022-04-30] MEDS: DOCUSATE SODIUM 100 MG CAP PO SCH ×2 (08:29→21:31)
[2022-04-30] MEDS: POTASSIUM CHLORIDE CRTAB 20 MEQ TABCR PO SCH (08:29)
[2022-04-30] MEDS: FINASTERIDE 5 MG TAB PO SCH (08:29)
[2022-04-30] MEDS: MAGNESIUM OXIDE 400 MG TAB PO SCH (08:29)
[2022-04-30] MEDS: CEROVITE ADV FORMULA TAB PO SCH (08:29)
[2022-04-30] MEDS: METOPROLOL SUCC 50MG EXT REL TAB PO SCH (08:29)
[2022-04-30 08:31] LABS: Calcium 8.1 mg/dl (8.5-10.1); Creatinine Clr Calc Pharmacy 57.8 ml/min; Est GFR (African American) 80.3 ml/min; Est GFR (Non-African American) 69.3 ml/min; Potassium 3.5 mmol/L (3.5-5.1)
[2022-04-30] MEDS: ACETAMINOPHEN 325 MG TAB PO PRN (11:54)
[2022-04-30] MEDS: oxyCODONE HCL IR 5 MG TAB (IMMEDIATE RELEASE) PO PRN (15:30)
--- NOTE | 2022-04-30 17:25 | Hospitalist Progress Note ---
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 initial procal negative follow urine results negative fever curve trending down not appearing to be infectious at this time (2) Weakness: Plan: Multifactoral, feels she cannot care for him at home, hopeful for rehab Pt with weakness and confusion on presentation, will rule out metabolic encephalopathy, maybe toxic encephalopathy from home ambien (3) S/P AAA repair using bifurcation graft: Plan: Endovascular repair by Dr Brody (4) COPD (chronic obstructive pulmonary disease): Plan: Patient has COPD class C with recent FEV1 of 56%. He follows with Dr. Interiano in the outpatient office. He is currently managed on Breztri 2 inhalations twice daily as well as albuterol nebulizer treatment in the morning and in the evening. Patient has chronic history of complaints of shortness of breath and has frequently been placed on steroid tapers and antibiotic treatment for exasperation Recently the patient attempted to call the pulmonary office but was unable to be seen. He then went to his primary care physician and was given a prednisone taper for 16 days starting 04/03/2022. Patient just completed prednisone taper on 04/19/2022 Patient is not hypoxic. CT scan of the chest shows chronic groundglass opacities with no evidence of acute abnormalities We will continue patient on home inhaler of budesonide/glycopyrrolate/formoterol as well as scheduled albuterol nebulizer treatments twice daily Maintain SaO2 between 88 and 92% has nocturnal hypoxia on supplemental oxygen (5) Atrial fibrillation: Plan: is on metoprolol xl and had implanted loop recorder loop recorder for previous syncopal episodes, did not have syncope on presentation (6) CKD (chronic kidney disease): Plan: stable stage 3 (7) Dementia: (8) Benign localized prostatic hyperplasia with lower urinary tract symptoms (LUTS): Plan: on finesteride, not on flomax with syncope has condom cath on right now (9) DVT prophylaxis: Plan: with recent endovascular repair not on chemoprophylaxis Plan wrist pain will check x ray and use prn toradol Admission and Anticipated Discharge Date Admission Date: April 27, 2022 Subjective pt has discord wanting to go home and states she cannot care for him there 04/30 biggest compliant is left wrist pain Review of Systems Review of Systems: Mild distress and fatigue no headache, no visual changes no speech or swallowing issues no chest pain, pressure or palpitations no shortness of breath, cough or wheezes no abdominal pain, nausea or vomiting, diarrhea or constipation no dysuria, hematuria or frequency pt has some non focal left wrist pain without swelling no back pain, CVA tenderness or radicular pain groin vascular access sites remain non tender or swollen no focal signs of weakness or numbness or altered sensation no complaints of anxiety or depression.. Physical Exam Physical Exam: The patient appeared well nourished and normally developed. Vital signs as documented. Fever curve trending down Head exam is normocephalic atraumatic Neck is without JVD, thyromegaly, or carotid bruits. Lungs are clear to auscultation, no focal loss of breath sounds Cardiac exam, Rhythm is regular.. No murmurs, rubs or gallops. Abdominal exam reveals normal bowel sounds, soft non tender, no masses Extremities are nonedematous and both pedal pulses are present Left wrist with pain no edema some arthritic pain Neurologic exam is alert and oriented, no focal loss of strength or sensation Skin is without redness or fluctuance in groin access sites Psychologically is without concerns for anxiety or depression.. Results & Data Results & Data ([facility]) Vital Signs (Past 12 Hours) Vital Signs Temp Pulse Resp BP Pulse Ox O2 Del Method O2 Flow Rate 04/30/22 14:27 98.2 F 71 17 138/56 L 93 Room Air 04/30/22 08:20 Nasal Cannula 2 04/30/22 07:20 98.1 F 83 18 156/72 H 97 Nasal Cannula 2 04/30/22 06:59 73 18 97 Nasal Cannula 2 PG Care Time/CCT Total # of Minutes Spent Total Time Spent with Patient: Total time spent is greater than 50% in coordination of care (as documented) at patient's floor/unit and/or counseling patient: Coding Level of Care Code 61490 Subseq Hosp Care Lvl 2 Diagnoses Fever R50.9 Weakness R53.1 S/P AAA repair using bifurcation graft Z95.828; Z86.79 COPD (chronic obstructive pulmonary disease) J44.9 Atrial fibrillation I48.0 Atrial fibrillation type: paroxysmal CKD (chronic kidney disease) N18.9 Dementia F03.90 Benign localized prostatic hyperplasia with lower urinary tract symptoms (LUTS) N40.1 DVT prophylaxis Z29.9 (1) Atrial fibrillation Atrial fibrillation type: paroxysmal Qualified Code(s): I48.0 - Paroxysmal atrial fibrillation
[2022-04-30] MEDS: KETOROLAC TROMETHAMINE 15 MG/ML VIAL IV PRN (17:57)
--- NOTE | 2022-04-30 19:14 | XRay Report ---
XR wrist LT 2V HISTORY: 81 years-old Male left wrist pain . Acute left wrist pain COMPARISON: None TECHNIQUE: 2 views of the left wrist FINDINGS: 3 mm positive ulnar variance. Severe radiocarpal with moderate triscaphe and first carpometacarpal os teoarthritis. Subcortical cystic changes of the distal ulna. No acute fracture, dislocation or osseou s erosion. Mild circumferential soft tissue swelling. Corticated debris is noted surrounding the wris t suggestive of fragmented osteophytes. IMPRESSION: 1. No acute fracture or dislocation. 2. 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 ACT 112: Negative or not required by law. The above report was generated using voice recognition software. It may contain grammatical, syntax o r spelling errors. Electronically signed by: Deepak Briggs M.D. 04/30/2022 7:13 PM
[2022-04-30] MEDS: CeleBREX 200 MG CAP PO SCH (21:27)
[2022-04-30] MEDS: MONTELUKAST SODIUM 10 MG TABLET PO SCH (21:28)
[2022-04-30] MEDS: FAMOTIDINE 20 MG TAB PO SCH (21:31)
[2022-05-01 07:19] LABS: Hematocrit (blood only) 28.2 % (40.1-51.0); Hemoglobin 9.1 g/dl (14.0-18.0); Mean Corpuscular Hemoglobin 30.1 pg (25.0-34.0); Mean Corpuscular Hgb Conc 32.3 g/dL (32.0-36.0); Mean Corpuscular Volume 93.4 fL (80.0-100.0); Mean Platelet Volume 9.6 fL (9.4-12.4); Platelet Count 193 K/uL (130-400); RDW Coefficient of Variation 12.9 % (11.5-14.5); Red Blood Count 3.02 M/uL (4.63-6.08)
[2022-05-01 07:39] LABS: BUN Creatinine Ratio 14.4 (10-20); Calcium 8.1 mg/dl (8.5-10.1); Est GFR (African American) 65.7 ml/min; Est GFR (Non-African American) 56.7 ml/min; Potassium 3.6 mmol/L (3.5-5.1); Uric Acid 5.6 mg/dl (2.6-7.2)
[2022-05-01] MEDS: LEVALBUTEROL 1.25MG/0.5ML NEB NEB SCH ×2 (07:39→19:29)
[2022-05-01] MEDS: ARTIFICIAL TEARS OP SCH ×2 (07:56→20:00)
[2022-05-01] MEDS: BREZTRI EXT SCH ×2 (07:56→20:01)
[2022-05-01] MEDS: CeleBREX 200 MG CAP PO SCH (07:57)
[2022-05-01] MEDS: POTASSIUM CHLORIDE CRTAB 20 MEQ TABCR PO SCH (07:57)
[2022-05-01] MEDS: FINASTERIDE 5 MG TAB PO SCH (07:57)
[2022-05-01] MEDS: PANTOprazole 40 MG TAB PO SCH (07:57)
[2022-05-01] MEDS: TELMISARTAN 40 MG TAB PO SCH (07:57)
[2022-05-01] MEDS: CEROVITE ADV FORMULA TAB PO SCH (07:57)
[2022-05-01] MEDS: MAGNESIUM OXIDE 400 MG TAB PO SCH (07:57)
[2022-05-01] MEDS: METOPROLOL SUCC 50MG EXT REL TAB PO SCH (07:57)
[2022-05-01] MEDS: DOCUSATE SODIUM 100 MG CAP PO SCH ×2 (07:57→20:03)
[2022-05-01] MEDS: oxyCODONE HCL IR 5 MG TAB (IMMEDIATE RELEASE) PO PRN ×2 (10:31→18:24)
[2022-05-01] MEDS: DICLOFENAC SOD 1% GEL 100 GM TUBE EXT SCH ×2 (12:28→20:00)
[2022-05-01] MEDS: KETOROLAC TROMETHAMINE 15 MG/ML VIAL IV PRN (13:46)
--- NOTE | 2022-05-01 17:59 | Hospitalist Progress Note ---
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 initial procal negative follow urine results negative fever curve trending down not appearing to be infectious at this time, this was supported by Dr Brody as fever from thrombosis in aneurysmal sac (2) Weakness: Plan: Multifactoral, feels she cannot care for him at home, hopeful for rehab Pt with weakness and confusion on presentation, will rule out metabolic encephalopathy, maybe toxic encephalopathy from home ambien no ambien and not recurred also though could have been associated with fever for placement per PT/OT (3) S/P AAA repair using bifurcation graft: Plan: Endovascular repair by Dr Brody (4) COPD (chronic obstructive pulmonary disease): Plan: Patient has COPD class C with recent FEV1 of 56%. He follows with Dr. Interiano in the outpatient office. He is currently managed on Breztri 2 inhalations twice daily as well as albuterol nebulizer treatment in the morning and in the evening. Patient has chronic history of complaints of shortness of breath and has frequen tly been placed on steroid tapers and antibiotic treatment for exasperation Recently the patient attempted to call the pulmonary office but was unable to be seen. He then went to his primary care physician and was given a prednisone taper for 16 days starting 04/03/2022. Patient just completed prednisone taper on 04/19/2022 Patient is not hypoxic. CT scan of the chest shows chronic groundglass opac ities with no evidence of acute abnormalities We will continue patient on home inhaler of budesonide/glycopyrrolate/formoterol as well as scheduled albuterol nebulizer treatments twice daily Maintain SaO2 between 88 and 92% has nocturnal hypoxia on supplemental oxygen (5) Atrial fibrillation: Plan: is on metoprolol xl and had implanted loop recorder loop recorder for previous syncopal episodes, did not have syncope on presentation (6) CKD (chronic kidney disease): Plan: stable stage 3 (7) Dementia: (8) Benign localized prostatic hyperplasia with lower urinary tract symptoms (LUTS): Plan: on finesteride, not on flomax with syncope has condom cath on right now (9) DVT prophylaxis: Plan: with recent endovascular repair not on chemoprophylaxis Plan wrist pain, x ray voltaren gel and use prn toradol gout ruled out and xray supports OA Admission and Anticipated Discharge Date Admission Date: April 27, 2022 Subjective pt has discord wanting to go home and states she cannot care for him there PT supports rehab need 04/30 biggest compliant is left wrist pain, 05/01, uric acid normal x ray shows arthritic pain-> try voltaren gel Review of Systems Review of Systems: Mild distress and fatigue no headache, no visual changes no speech or swallowing issues no chest pain, pressure or palpitations no shortness of breath, cough or wheezes no abdominal pain, nausea or vomiting, diarrhea or constipation no dysuria, hematuria or frequency pt has some non focal left wrist pain without swelling, ulnar side no back pain, CVA tenderness or radicular pain groin vascular access sites remain non tender or swollen no focal signs of weakness or numbness or altered sensation no complaints of anxiety or depression.. Physical Exam Physical Exam: The patient appeared well nourished and normally developed. Vital signs as documented. Fever curve trending down Head exam is normocephalic atraumatic Neck is without JVD, thyromegaly, or carotid bruits. Lungs are clear to auscultation, no focal loss of breath sounds Cardiac exam, Rhythm is regular.. No murmurs, rubs or gallops. Abdominal exam reveals normal bowel sounds, soft non tender, no masses no bruits Extremities are nonedematous and both pedal pulses are present Left wrist with pain no edema some arthritic pain Neurologic exam is alert and oriented, no focal loss of strength or sensation Skin is without redness or fluctuance in groin access sites Psychologically is without concerns for anxiety or depression.. Results & Data Results & Data ([facility]) Vital Signs (Past 12 Hours) Vital Signs Temp Pulse Pulse Resp BP Pulse Ox O2 Del Method 05/01/22 15:17 97.9 F 76 16 121/69 92 Room Air 05/01/22 07:57 98.1 F 83 16 136/72 92 Room Air 05/01/22 07:39 85 18 90 Room Air PG Care Time/CCT Total # of Minutes Spent Total Time Spent with Patient: Total time spent is greater than 50% in coordination of care (as documented) at patient's floor/unit and/or counseling patient: Coding Level of Care Code 52029 Subseq Hosp Care Lvl 2 Diagnoses Fever R50.9 Weakness R53.1 S/P AAA repair using bifurcation graft Z95.828; Z86.79 COPD (chronic obstructive pulmonary disease) J44.9 Atrial fibrillation I48.0 Atrial fibrillation type: paroxysmal CKD (chronic kidney disease) N18.9 Dementia F03.90 Benign localized prostatic hyperplasia with lower urinary tract symptoms (LUTS) N40.1 DVT prophylaxis Z29.9 (1) Atrial fibrillation Atrial fibrillation type: paroxysmal Qualified Code(s): I48.0 - Paroxysmal atrial fibrillation
[2022-05-01] MEDS: MONTELUKAST SODIUM 10 MG TABLET PO SCH (20:01)
[2022-05-01] MEDS: FAMOTIDINE 20 MG TAB PO SCH (20:03)
[2022-05-02] MEDS: LEVALBUTEROL 1.25MG/0.5ML NEB NEB SCH ×2 (07:00→19:15)
--- NOTE | 2022-05-02 08:54 | Hospitalist Progress Note ---
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 Patient seen yesterday and continues to require inpatient rehab on discharge (3) S/P AAA repair using bifurcation graft: Plan: Endovascular repair by Dr Brody (4) COPD (chronic obstructive pulmonary disease): Plan: Patient has COPD class C with recent FEV1 of 56%. He follows with Dr. Interiano in the outpatient office. He is currently managed on Breztri 2 inhalations twice daily as well as albuterol nebulizer treatment in the morning and in the evening. Patient has chronic history of complaints of shortness of breath and has frequently been placed on steroid tapers and antibiotic treatment for exasperation Recently the patient attempted to call the pulmonary office but was unable to be seen. He then went to his primary care physician and was given a prednisone taper for 16 days starting 04/03/2022. Patient just completed prednisone taper on 04/19/2022 Patient is not hypoxic. CT scan of the chest shows chronic groundglass opacities with no evidence of acute abnormalities We will continue patient on home inhaler of budesonide/glycopyrrolate/formoterol as well as scheduled albuterol nebulizer treatments twice daily Maintain SaO2 between 88 and 92% has nocturnal hypoxia on supplemental oxygen (5) Atrial fibrillation: Plan: is on metoprolol xl and had implanted loop recorder loop recorder for previous syncopal episodes, did not have syncope on presentation (6) CKD (chronic kidney disease): Plan: stable stage 3 (7) Dementia: Plan: Progressive per discussion with No behavioral issues Continue supportive care (8) Benign localized prostatic hyperplasia with lower urinary tract symptoms (LUTS): Plan: on finesteride, not on flomax with syncope Continues to require condom cath (9) DVT prophylaxis: Plan: with recent endovascular repair not on chemoprophylaxis Plan wrist pain, x ray voltaren gel and use prn toradol patient reports significant improvement gout ruled out and xray supports OA Disposition: Tentative bed hold at [facility]. PT and OT reevaluation yesterday recommending rehab placement. Possible discharge there on . Patient's is aware. We will follow-up with case management tomorrow with hopeful discharge Admission and Anticipated Discharge Date Admission Date: April 27, 2022 Subjective Attending: Dr. Donovan Patient seen at bedside with patient's present. Patient is sleepy and has minimal involvement in the discussion. He does deny any shortness of breath. He has no abdominal pain or chest pain. He has no fever or chills. He denies any other acute complaints. Review of Systems Review of Systems: A total of 10 systems was reviewed and is negative other than as listed in the HPI Physical Exam Physical Exam: GENERAL : No acute distress EYES: No icterus, gaze conjugate NOSE: No evidence of epistaxis MOUTH: No lesions or candidiasis NECK: Supple LUNGS: CTA B/L, no wheezes, rales or rhonchi HEART: Regular, rate controlled ABDOMEN: Soft, NT, ND, BS Present EXTREMITIES: No LE edema, pedal pulses intact NEURO: A&OX3 Results & Data Results & Data ([facility]) Vital Signs (Past 12 Hours) Vital Signs Temp Pulse Pulse Pulse Resp BP BP 05/02/22 08:03 37.1 C 75 16 142/70 H 05/02/22 07:00 74 18 05/02/22 06:16 36.8 C 62 18 146/78 H 05/01/22 22:23 36.6 C 85 18 145/69 H Pulse Ox O2 Del Method O2 Flow Rate 05/02/22 08:03 96 Nasal Cannula 05/02/22 07:00 99 Nasal Cannula 2 05/02/22 06:16 96 Room Air 05/01/22 22:23 91 Room Air Critical Care Results & Data Vital Signs (Past 12 Hours) Vital Signs Temp Pulse Pulse Pulse Resp BP BP 05/02/22 08:03 37.1 C 75 16 142/70 H 05/02/22 07:00 74 18 05/02/22 06:16 36.8 C 62 18 146/78 H 05/01/22 22:23 36.6 C 85 18 145/69 H Pulse Ox O2 Del Method O2 Flow Rate 05/02/22 08:03 96 Nasal Cannula 05/02/22 07:00 99 Nasal Cannula 2 05/02/22 06:16 96 Room Air 05/01/22 22:23 91 Room Air Lab & Micro Results (Past 24 Hours) No Data to Display No Data to Display No Data to Display Microbiology 04/26/22 03:41 Aerobic Blood Culture - Final Blood No growth in Aerobic bottle after 5 days. Anaerobic Blood Culture - Final No growth in Anaerobic bottle after 5 days. 04/26/22 03:30 Aerobic Blood Culture - Final Blood No growth in Aerobic bottle after 5 days. Anaerobic Blood Culture - Final No growth in Anaerobic bottle after 5 days. I & O Totals 24 Hours 05/01/22 05/02/22 05/03/22 06:59 06:59 06:59 Intake Total 550 / 550 25 / 25 Output Total 800 / 800 200 / 200 Balance -250 / -250 -175 / -175 Cumulative 04/26/22 03:11 thru 05/02/22 06:16 Intake Total 7645.667 Output Total 6776 Balance 869.667 RT Ventilator Mngmt (Last Documented) Ventilator Ordered Settings Respiratory Rate 16 05/02/22 08:03 Ventilator - PT Measurements Respiratory Rate 16 PG Care Time/CCT Total # of Minutes Spent Total Time Spent with Patient: Total time spent is greater than 50% in coordination of care (as documented) at patient's floor/unit and/or counseling patient: 20 minutes Coding Level of Care Code 37278 Subseq Hosp Care Lvl 1 Diagnoses Fever R50.9 Weakness R53.1 S/P AAA repair using bifurcation graft Z95.828; Z86.79 COPD (chronic obstructive pulmonary disease) J44.9 Atrial fibrillation I48.0 Atrial fibrillation type: paroxysmal CKD (chronic kidney disease) N18.9 Dementia F03.90 Benign localized prostatic hyperplasia with lower urinary tract symptoms (LUTS) N40.1 DVT prophylaxis Z29.9 (1) Atrial fibrillation Atrial fibrillation type: paroxysmal Qualified Code(s): I48.0 - Paroxysmal atrial fibrillation
[2022-05-02] MEDS: CeleBREX 200 MG CAP PO SCH (09:04)
[2022-05-02] MEDS: FINASTERIDE 5 MG TAB PO SCH (09:05)
[2022-05-02] MEDS: MAGNESIUM OXIDE 400 MG TAB PO SCH (09:05)
[2022-05-02] MEDS: TELMISARTAN 40 MG TAB PO SCH (09:05)
[2022-05-02] MEDS: CEROVITE ADV FORMULA TAB PO SCH (09:06)
[2022-05-02] MEDS: METOPROLOL SUCC 50MG EXT REL TAB PO SCH (09:06)
[2022-05-02] MEDS: PANTOprazole 40 MG TAB PO SCH (09:06)
[2022-05-02] MEDS: BREZTRI EXT SCH ×2 (09:07→20:34)
[2022-05-02] MEDS: DICLOFENAC SOD 1% GEL 100 GM TUBE EXT SCH ×2 (09:11→20:33)
[2022-05-02] MEDS: ARTIFICIAL TEARS OP SCH ×2 (09:12→20:33)
[2022-05-02] MEDS: POTASSIUM CHLORIDE CRTAB 20 MEQ TABCR PO SCH (09:18)
[2022-05-02] MEDS: DOCUSATE SODIUM 100 MG CAP PO SCH ×2 (09:18→20:33)
[2022-05-02] MEDS: oxyCODONE HCL IR 5 MG TAB (IMMEDIATE RELEASE) PO PRN (09:19)
[2022-05-02] MEDS: FAMOTIDINE 20 MG TAB PO SCH (20:33)
[2022-05-02] MEDS: MONTELUKAST SODIUM 10 MG TABLET PO SCH (20:34)
[2022-05-03] MEDS ORDERED: LEVALBUTEROL HCL 1.25 MG/3 ML NEB ONE (07:17)
[2022-05-03] MEDS: LEVALBUTEROL 1.25MG/0.5ML NEB NEB SCH ×2 (07:21→19:22)
[2022-05-03] MEDS: TELMISARTAN 40 MG TAB PO SCH (08:19)
[2022-05-03] MEDS: DICLOFENAC SOD 1% GEL 100 GM TUBE EXT SCH ×2 (08:19→20:38)
[2022-05-03] MEDS: PANTOprazole 40 MG TAB PO SCH (08:19)
[2022-05-03] MEDS: CeleBREX 200 MG CAP PO SCH (08:19)
[2022-05-03] MEDS: FINASTERIDE 5 MG TAB PO SCH (08:20)
[2022-05-03] MEDS: MAGNESIUM OXIDE 400 MG TAB PO SCH (08:20)
[2022-05-03] MEDS: CEROVITE ADV FORMULA TAB PO SCH (08:20)
[2022-05-03] MEDS: METOPROLOL SUCC 50MG EXT REL TAB PO SCH (08:20)
[2022-05-03] MEDS: DOCUSATE SODIUM 100 MG CAP PO SCH ×2 (08:21→20:38)
[2022-05-03] MEDS: ARTIFICIAL TEARS OP SCH ×2 (08:21→20:38)
[2022-05-03] MEDS: BREZTRI EXT SCH ×2 (08:22→20:38)
[2022-05-03] MEDS: POTASSIUM CHLORIDE CRTAB 20 MEQ TABCR PO SCH (08:28)
[2022-05-03] MEDS: ACETAMINOPHEN 325 MG TAB PO PRN (15:51)
--- NOTE | 2022-05-03 18:02 | Hospitalist Progress Note ---
Date of Service May 03, 2022 Assessment & Plan (1) Fever: Plan: Attending: Dr. Lynch Fever resolved. 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 initial procal negative follow up urine results negative Not appearing to be infectious at this time. 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 Ktod-ev-yogz review with Dr. De Paz. Patient has elected to self-pay. Anticipate bed to be available tomorrow (3) S/P AAA repair using bifurcation graft: Plan: Endovascular repair by Dr Brody (4) COPD (chronic obstructive pulmonary disease): Plan: Patient has COPD class C with recent FEV1 of 56%. He follows with Dr. Interiano in the outpatient office. He is currently managed on Breztri 2 inhalations twice daily as well as albuterol nebulizer treatment in the morning and in the evening. Patient has chronic history of complaints of shortness of breath and has frequently been placed on steroid tapers and antibiotic treatment for exasperation Recently the patient attempted to call the pulmonary office but was unable to be seen. He then went to his primary care physician and was given a prednisone taper for 16 days starting 04/03/2022. Patient just completed prednisone taper on 04/19/2022 Patient is not hypoxic. CT scan of the chest shows chronic groundglass opacities with no evidence of acute abnormalities We will continue patient on home inhaler of budesonide/glycopyrrolate/formoterol as well as scheduled albuterol nebulizer treatments twice daily Maintain SaO2 between 88 and 92% has nocturnal hypoxia on supplemental oxygen (5) Atrial fibrillation: Plan: Continue metoprolol xl. Implanted loop recorder loop recorder for previous syncopal episodes, did not have syncope on presen tation (6) CKD (chronic kidney disease): Plan: stable stage 3 (7) Dementia: Plan: Progressive per discussion with No behavioral issues Continue supportive care (8) Benign localized prostatic hyperplasia with lower urinary tract symptoms (LUTS): Plan: on finesteride, not on flomax with syncope Continues to require condom cath (9) DVT prophylaxis: Plan: with recent endovascular repair not on chemoprophylaxis Plan Dissipatewrist pain, x ray voltaren gel and use prn toradol patient reports significant improvement gout ruled out and xray supports OA Disposition: Anticipate discharge to [facility] tomorrow. Admission and Anticipated Discharge Date Admission Date: April 27, 2022 Supervising Physician Co-Signing Physician Notes Attending Attestation - Chart reviewed in detail, care plan d/w PA Branden Mendez. I agree w/ the lawler components of his documentation. Elliot Lynch MD Subjective Attending: Dr. Lynch Patient seen at bedside with patient's present. Patient is sleepy and has minimal involvement in the discussion. He does deny any shortness of breath. He has no abdominal pain or chest pain. He has no fever or chills. He denies any other acute complaints. [id number] review done with Dr. De Paz from [facility]. All physical therapy and Occupational Therapy notes reviewed. Patient does not qualify for prison or rehab based on [facility] review and standards with insurance company. Discussion with patient and his . They have elected to self-pay. Working on a bed at [facility]. Arin Johnston, heel caser involved. Review of Systems Review of Systems: A total of 10 systems was reviewed and is negative other than as listed in the HPI Physical Exam Physical Exam: GENERAL : No acute distress EYES: No icterus, gaze conjugate NOSE: No evidence of epistaxis MOUTH: No lesions or candidiasis NECK: Supple LUNGS: CTA B/L, no wheezes, rales or rhonchi HEART: Regular, rate controlled ABDOMEN: Soft, NT, ND, BS Present EXTREMITIES: No LE edema, pedal pulses intact NEURO: A&OX3 Results & Data Results & Data ([facility]) Vital Signs (Past 12 Hours) Vital Signs Temp Pulse Pulse Resp BP BP Pulse Ox 05/03/22 15:19 36.6 C 71 12 147/72 H 93 05/03/22 07:50 05/03/22 08:17 79 133/64 05/03/22 07:21 74 18 93 05/03/22 07:19 36.7 C 74 14 159/63 H 93 O2 Del Method 05/03/22 15:19 Room Air 05/03/22 07:50 Room Air 05/03/22 08:17 05/03/22 07:21 Room Air 05/03/22 07:19 Room Air Critical Care Results & Data Vital Signs (Past 12 Hours) Vital Signs Temp Pulse Pulse Resp BP BP Pulse Ox 05/03/22 15:19 36.6 C 71 12 147/72 H 93 05/03/22 07:50 05/03/22 08:17 79 133/64 05/03/22 07:21 74 18 93 05/03/22 07:19 36.7 C 74 14 159/63 H 93 O2 Del Method 05/03/22 15:19 Room Air 05/03/22 07:50 Room Air 05/03/22 08:17 05/03/22 07:21 Room Air 05/03/22 07:19 Room Air Lab & Micro Results (Past 24 Hours) No Data to Display No Data to Display No Data to Display Microbiology 04/27/22 16:54 Aerobic Blood Culture - Final Blood No growth in Aerobic bottle after 5 days. Anaerobic Blood Culture - Final 04/27/22 16:53 Aerobic Blood Culture - Final Blood No growth in Aerobic bottle after 5 days. Anaerobic Blood Culture - Final No growth in Anaerobic bottle after 5 days. I & O Totals 24 Hours 05/02/22 05/03/22 05/04/22 06:59 06:59 06:59 Intake Total 25 / 25 240 / 240 Output Total 200 / 200 950 / 950 Balance -175 / -175 -710 / -710 Cumulative 04/26/22 03:11 thru 05/03/22 10:00 Intake Total 7885.667 Output Total 7726 Balance 159.667 RT Ventilator Mngmt (Last Documented) Ventilator Ordered Settings Respiratory Rate 12 05/03/22 15:19 Ventilator - PT Measurements Respiratory Rate 12 PG Care Time/CCT Total # of Minutes Spent Total Time Spent with Patient: Total time spent is greater than 50% in coordination of care (as documented) at patient's floor/unit and/or counseling patient: Coding Level of Care Code 43368 Subseq Hosp Care Lvl 2 Diagnoses Fever R50.9 Weakness R53.1 S/P AAA repair using bifurcation graft Z95.828; Z86.79 COPD (chronic obstructive pulmonary disease) J44.9 Atrial fibrillation I48.0 Atrial fibrillation type: paroxysmal CKD (chronic kidney disease) N18.9 Dementia F03.90 Benign localized prostatic hyperplasia with lower urinary tract symptoms (LUTS) N40.1 DVT prophylaxis Z29.9 Time Spent (min) 40 Comment Including peer to peer review w/ [employer] for placement (1) Atrial fibrillation Atrial fibrillation type: paroxysmal Qualified Code(s): I48.0 - Paroxysmal atrial fibrillation
[2022-05-03] MEDS: MONTELUKAST SODIUM 10 MG TABLET PO SCH (20:38)
[2022-05-03] MEDS: FAMOTIDINE 20 MG TAB PO SCH (20:38)
[2022-05-04] MEDS ORDERED: LEVALBUTEROL HCL 1.25 MG/3 ML NEB ONE (07:06)
[2022-05-04] MEDS: LEVALBUTEROL 1.25MG/0.5ML NEB NEB SCH (07:10)
[2022-05-04] MEDS: MAGNESIUM OXIDE 400 MG TAB PO SCH (08:51)
[2022-05-04] MEDS: TELMISARTAN 40 MG TAB PO SCH (08:51)
[2022-05-04] MEDS: METOPROLOL SUCC 50MG EXT REL TAB PO SCH (08:51)
[2022-05-04] MEDS: CeleBREX 200 MG CAP PO SCH (08:51)
[2022-05-04] MEDS: FINASTERIDE 5 MG TAB PO SCH (08:51)
[2022-05-04] MEDS: PANTOprazole 40 MG TAB PO SCH (08:51)
[2022-05-04] MEDS: POTASSIUM CHLORIDE CRTAB 20 MEQ TABCR PO SCH (08:51)
[2022-05-04] MEDS: CEROVITE ADV FORMULA TAB PO SCH (08:51)
[2022-05-04] MEDS: BREZTRI EXT SCH (08:52)
[2022-05-04] MEDS: ARTIFICIAL TEARS OP SCH (08:52)
[2022-05-04] MEDS: DICLOFENAC SOD 1% GEL 100 GM TUBE EXT SCH (08:52)
[2022-05-04] MEDS: DOCUSATE SODIUM 100 MG CAP PO SCH (08:52)
[2022-05-04 11:11] LABS: Basophils # (auto) 0.05 K/uL (0-0.2); Basophils % (auto) 0.6 %; Eosinophils # (auto) 0.19 K/uL (0-0.50); Eosinophils % (auto) 2.1 %; Hematocrit (blood only) 31.2 % (40.1-51.0); Immature Granulocytes # (auto) 0.04 K/uL (0.00-0.02); Immature Granulocytes % (auto) 0.4 %; Lymphocytes # (auto) 0.75 K/uL (1.2-3.4); Lymphocytes % (auto) 8.4 %; Mean Corpuscular Hemoglobin 30.3 pg (25.0-34.0); Mean Corpuscular Hgb Conc 32.1 g/dL (32.0-36.0); Mean Corpuscular Volume 94.5 fL (80.0-100.0); Mean Platelet Volume 9.8 fL (9.4-12.4); Monocytes # (auto) 0.72 K/uL (0.24-0.82); Neutrophils # (auto) 7.21 K/uL (1.4-6.5); Neutrophils % (auto) 80.5 %; Platelet Count 352 K/uL (130-400); RDW Coefficient of Variation 13.2 % (11.5-14.5); RDW Standard Deviation 46.2 fL (36.4-46.3); White Blood Count 8.96 K/ul (4.8-10.8)
[2022-05-04 11:38] LABS: BUN Creatinine Ratio 20.7 (10-20); C Reactive Protein 14.93 mg/dl (0-0.5); Creatinine Clr Calc Pharmacy 49.8 ml/min; Est GFR (African American) 67.1 ml/min; Est GFR (Non-African American) 57.9 ml/min; Potassium 4.3 mmol/L (3.5-5.1)
--- NOTE | 2022-05-04 13:33 | Discharge Summary ---
Date of Service date of admission - April 26, 2022 date of discharge - May 04, 2022 Admission HPI Per Admitting Provider This is a 81-year-old male with a past medical history including COPD Gold class C with an FEV1 of 56%, history of tobacco abuse (quit in 2014), chronic bronchitis, nocturnal hypoxia requiring 2 L/min via nasal cannula HS, history of syncope, atrial fibrillation, hypertension, abdominal aortic aneurysm s/p PVAR 04/24/2022, retinopathy, BPH, erectile dysfunction. Patient was found to have an abdominal aortic aneurysm in 2017 measuring 3.9 cm. Patient had routine follow-up and it was found that the aneurysm was close to 7 cm. Patient presented for elective PVAR with Dr. Brody 04/24/2022. There were no complications with the surgery and patient had minimal blood loss. Patient was discharged yesterday. Last evening, patient got up to urinate as he normally does and found him to be extremely weak and short of breath. He had increased wheezes. She was unable to check pulse oximetry at that time. She also reports that the patient was diaphoretic. He denied any chest pain to her at that time. The called 911 and patient was transported to the emergency department where is found to have a temperature of 38.3 C. Vital signs otherwise have been within normal limits. Patient was placed on his normal 2 L/min of supplemental oxygen via nasal cannula and has been maintaining saturations in the mid 90s. The cannula was removed this morning at the time of my examination and patient continued to remain above 90%. Patient has no increased sputum or cough. He has no hemoptysis. He reports that his shortness of breath has resolved. Patient does report typical postsurgical pain in the bilateral groins. Inguinal regions were checked and there are dressings in place which are dry and intact. Patient does have tenderness to palpation over the catheter insertion site but there is no excessive ecchymosis and no evidence of hematoma on palpation. Pedal pulses are intact bilaterally and equal. Feet are warm bilaterally. There is no asymmetrical edema of the lower extremities. There is no lower extremity edema on examination. Patient is found to be bronchospastic on examination. He has good bilateral breath sounds. Heart rate is regular and rate controlled in the 70s. Patient is able to sit up in bed unassisted with use of handrails but is very weak and unable to stay seated in that position for any length of time. Patient moves toes, feet, legs spontaneously and strength is equal bilaterally. Skin is dry. Color is good. Patient does have evidence of dementia. I spoke to the about this private ly in the hallway and she states for the last 2 or 3 years he has short-term forgetfulness but remembers things from years ago. He has not had any neurological work-up and does not carry a diagnosis of Alzheimer's or progressive dementia at this time. I discussed CODE STATUS extensively with the patient and his . Patient would like to be mechanically ventilated if needed for pneumonia or acute respiratory failure. He would not like to have cardiac compressions or heroic measures should his heart stop. He is agreeable to electrical cardioversion if needed as well as medicinal treatment from a conservative standpoint regarding his cardiopulmonary standing. Principal Diagnosis 1. Post-operative fever - resolved, bacterial source not found, exact etiology uncertain 2. Acute left wrist inflammatory arthritis - suspected gout - resolved 3. Percutaneous Endovascular Aortic Aneurysm Repair - Dr. Gabriel Brody 04/24/2022 Discharge Exam gen - NAD, pleasant neck - no JVD mouth - MMM heart - RRR, s1 s2 lungs - occasional end-exp wheeze b/l, no rales abd - soft NT ND BS+ musculo - scant swelling left wrist, no tenderness; full ROM present ext - no edema, pulses 2+ b/l skin - b/l groin incisions clean, no drainage, no swelling, no redness Discharge Data Allergies Allergy/AdvReac Type Severity Reaction Status Date / Time No Known Drug Allergies Allergy Verified 04/24/22 08:10 Consultations [facility] Vascular Surgery PT OT Ordered Studies Chest X-Ray 04/26/22 03:34 XR chest 1V portable HISTORY: SEPSIS COMPARISON: None. FINDINGS: Mild interstitial thickening at the lung bases, unchanged. No new focal lung consolidations. Mild emphysema. Cardiac silhouette is normal in size. No pleural effusions. No pneumothorax. IMPRESSION: No significant change compared to the prior study. No acute process. ACT 112: Negative or not required by law. Electronically signed by: Mt Burroughs M.D. 04/26/2022 7:48 AM Abdomen/Pelvis CTA 04/26/22 03:41 CT ANGIOGRAPHY OF THE ABDOMEN AND PELVIS CLINICAL HISTORY: Fever, s/p recent AAA repair. COMPARISON STUDY: CTA of the abdomen and pelvis April 19, 2022. TECHNIQUE: Helical axial images of the abdomen and pelvis were obtained during arterial phase following intravenous injection of 118 cc Optiray 320 IV. Sagittal and coronal reconstructions were viewed as well as maximal intensity projections on an independent 3-D workstation. Automated exposure control was utilized for the study. A dose lowering technique was utilized adhering to the principles of ALARA. FINDINGS: Please note that the chest CT will be reported separately. Mild bilateral lower lobe airspace opacities have decreased since CT of April 19, 2022. No pneumatosis, free air or portal venous gas is present. Gallbladder is mildly distended. There is no pericholecystic stranding. Arterial phase image of the liver, spleen, left adrenal gland and pancreas are unremarkable with the exception of a 1.2 cm cystic lesion within the pancreatic head on axial image 150 of 433. 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 Subcentimeter right adrenal nodule is unchanged since CT of February 02, 2017. This is benign. There is no evidence for a bowel obstruction. Colonic diverticulosis is noted without ev idence for acute diverticulitis. Images of the pelvis are degraded by streak artifact from bilateral hip arthroplasties. There is no evidence for a bowel obstruction. The appendix is not visualized. There is gas within the bladder, likely from recent catheterization. There is no hydronephrosis. Small bilateral renal calculi are noted. There are suspected renal cyst. Probable small bladder calculus. Interval placement of a bifurcated endovascular aortoiliac stent graft is noted. Aneurysm sac is unchanged, measuring 6.8 cm in size since CT of April 19, 2022. Iliac limbs are patent. There is no evidence for rupture. No endoleak is noted, likely typed positioning from a lumbar artery. Bilateral renal arteries are patent. Celiac axis and superior mesenteric artery are patent. Moderate atherosc lerotic plaque is noted. No groin pseudoaneurysm is noted. Minimal stranding within the groins is postprocedural and expected in the early postoperative setting. IMPRESSION: 1. Interval placement of a bifurcated endovascular aortoiliac stent graft. No change in aneurysm sac size. No rupture. Endoleak, likely take 2, as described above. 2. Distended gallbladder. No pericholecystic stranding. 3. Colonic diverticulosis without evidence for acute diverticulitis. 4. Mild bilateral lower lobe airspace opacities, decreased since CT of April 19, 2022. ACT 112: Negative or not required by law. Electronically signed by: Walter Johnson M.D. 04/26/2022 7:07 AM Chest CTA 04/26/22 03:41 CT angio chest w con HISTORY: Shortness of breath. Fever. TECHNIQUE: Multiaxial CT images of the chest were performed following the intravenous administration of contrast to evaluate the aorta. Maximal intensity projection images were also obtained. COMPARISON STUDY: Chest CT 07/06/2020 and abdomen and pelvis CT 04/19/2022. FINDINGS: Stable mild aneurysmal dilatation of the ascending thoracic aorta measuring up to 4.4 cm in diameter. No evidence for an aortic dissection. There is mild calcified plaque within the thoracic aorta. Study was not performed to evaluate the pulmonary arteries. However, the main pulmonary arteries appear patent. The thyroid gland enhances normally. There is a loop recorder within the left anterior chest wall. Please refer to the same day abdomen and pelvis CT for further evaluation of the abdominal structures. There is a mildly distended gallbladder which is partially visualized. There are are 2 subcentimeter right adrenal gland nodules. Normal esophagus. No mediastinal or hilar lymphadenopathy. Moderate calcified plaque within the coronary arteries. No pleural or pericardial effusions. No suspicious lytic are blastic osseous lesions. No pneumothorax. There is respiratory motion artifact. The central airways appear patent. Mild to moderate emphysema. Small cluster of tree-in-bud nodular opacities within the periphery the right upper lobe. Small patchy densities within the base of the bilateral lower lobes have slightly improved in the interval. IMPRESSION: 1. 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 2. No evidence for an aortic dissection. 3. Emphysema. 4. Small patchy densities within the bases of the bilateral lower lobes have slightly improved in the interval. 5. Please refer to the same day abdomen and pelvis CT for further evaluation of the abdominal structures. ACT 112: Negative or not required by law. Electronically signed by: Mt Burroughs M.D. 04/26/2022 7:47 AM Wrist X-Ray 04/30/22 17:13 XR wrist LT 2V HISTORY: 81 years-old Male left wrist pain . Acute left wrist pain COMPARISON: None TECHNIQUE: 2 views of the left wrist FINDINGS: 3 mm positive ulnar variance. Severe radiocarpal with moderate triscaphe and first carpometacarpal osteoarthritis. Subcortical cystic changes of the distal ulna. No acute fracture, dislocation or osseous erosion. Mild circumferential soft tissue swelling. Corticated debris is noted surrounding the wrist suggestive of fragmented osteophytes. IMPRESSION: 1. No acute fracture or dislocation. 2. 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 ACT 112: Negative or not required by law. The above report was generated using voice recognition software. It may contain grammatical, syntax or spelling errors. Electronically signed by: Deepak Briggs M.D. 04/30/2022 7:13 PM Hospital Course (1) Fever: Last documented fever >38 was on the evening of 04/27/22. Fever resolved without any specific therapy or antibiotics. Blood cultures x 4 sets negative. Urine culture negative. No evidence of pneumonia. COVID testing was negative. Given his recent AAA repair Dr Gabriel Brody from vascular surgery was consulted. He felt that the fever could have been due to thrombosis in the aneurysmal sac. The patient also developed left wrist inflammatory arthritis. X-rays did not show CPPD findings. The patient does have prior h/o gout, and perhaps the left wrist pain was due to acute gout. Acute gout can cause fever as well. Either way no bacterial source for the fever was found, and he had no fever for 5+ days prior to discharge. (2) Arthritis of left wrist: Acute inflammation. 2nd to acute gout? The patient does have a prior h/o gout. He had been off his celebrex when the left wrist inflammation began. He was restarted on his celebrex, and his inflammation and pain improved. Peak CRP was 24, improving to 14.9 prior to discharge. (3) Weakness: Multifactorial -- recent surgery, fevers, deconditioning, etc. PT, OT recommended acute rehab. Insurance coverage denied by [employer]. [id number] review was pursued and still denied. Ultimately family decided to take patient home with home PT/OT. (4) S/P AAA repair using bifurcation graft: Endovascular repair by Dr Brody on 04/24/22. See CT abd/pelvis. See discussion above in #1. (5) COPD (chronic obstructive pulmonary disease): Patient has COPD class C with recent FEV1 of 56%. He follows with Dr. Alfred Interiano in the outpatient office. Patient was not hypoxic while here. CT scan of the chest showed chronic groundglass opacities with no evidence of acute abnormalities; the opacities were improved relative to prior CT. Continue HS supplemental oxygen as previous. (6) Atrial fibrillation: Continue metoprolol xl. He is not on chronic anticoagulation. He was in NSR while here. (7) CKD (chronic kidney disease): stable stage 3a disease. discharge Creatinine = 1.1. (8) Dementia: Progressive per discussion with . No behavioral issues while here. (9) Benign localized prostatic hyperplasia with lower urinary tract symptoms (LUTS): On finesteride. Not on flomax due to prior episodes of syncope. (10) IPMN (intraductal papillary mucinous neoplasm): Incidental finding of 1.2cm cystic lesion of the pancreatic head. 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 Patient will need surveillance of this lesion. Plan patient returning home with home health services and home PT/OT Home Health Attestation I certify that this patient is under my care and that I, or a physicians merchandising assistant working with me, had a face to-face encounter that meets the home health [id number] encounter requirements with this patient. The encounter with the patient was in whole, or in part, for the following medical condition, which is the primary reason for home health care (list medical condition): I certify that, based on my findings, the following services are medically necessary home health services: My clinical findings support the need for the above services because: Further, I certify that my clinical findings support that this patient is homebound (i.e. absences from home require considerable and taxing effort and are for medical reasons or [employer] services or infrequently or of short d uration when for other reasons) because: Certification for Home Health Services: Based on the above findings, I certify that this patient is confined to the home and needs intermittent longterm care, physical therapy and/or speech therapy or continues to need occupational therapy. The patient is under my care, and I have initiated the establishment of the plan of care. This patient will be followed by a physician who will periodically review the plan of care. Total Time Total Time Spent Total Time Spent (In Minutes): 40 Discharge Plan Discharge Items Patient Disposition: Home - Home Health Services Reason For Visit: post op fever Discharge Diagnosis: 1. post-operative fever - resolved; exact cause uncertain, but no evidence of pneumonia, urinary infection, COVID infection, or bloodstream infection; gout can cause fevers, but again uncertain if this caused your fever 2. suspected gout of left wrist - improved / resolving 3. recent AAA repair Activity: As commented below Activity Comment: please follow any previous instructions from Dr Brody Sexual Activity: Wait until after follow-up appointment Exercise/Sports: Wait until after follow-up appointment Driving/Machine Use: No driving until seen by Dr Brody Non-emergency contact: Primary Care Provider and Surgeon Call non-emergency contact if: you have any medication questions, your symptoms worsen and you have a fever Follow-up/Referrals: Malika Freed CRNP [Primary Care Provider] - (within 5 days ) Gabriel Brody MD [Physician] - 05/10/22 (post-operative follow-up visit as scheduled ) Diet: Heart Healthy Addtl Attending Provider Instructions: Mr George, You were hospitalized for weakness, fever, and shortness of breath. All of these symptoms began at home during your recovery from your recent AAA repair. We were initially concerned about infection but testing did not show COVID-19, any pneumonia, urinary infection, wound infection of the groins, bloodstream infection, etc. It was uncertain what caused the fevers and weakness. Later in your stay you developed severe left wrist pain. I am suspicious that the wrist pain was a gout attack. During gout attacks the uric acid level in your blood can be normal. Gout attacks like to occur when the body is under physical stress (like having recent surgery). Further, you had been off your celebrex. At this time your blood work is acceptable, your vital signs are stable, and you have had no fever in multiple days. You were seen by Dr Brody during the stay and your groin incisions were felt stable/acceptable by him. Please keep your follow-up appointment with Dr Brody as scheduled. Finally, our case management department has set up home health services for you to help with your transition back to your home. Follow-up - see separate section Return to [facility] if - * you have fevers over 100 degrees * you have worsening shortness of breath * you have chest pains * you have abdominal or back pains * you have any concerns about your groin incisions from the recent surgery * your left wrist pain returns/worsens, becomes warm/hot, etc * any other concerns It was our pleasure to care for you at [facility]! Please continue to feel better, Dr Lynch Pending Studies at Discharge: No Stand-Alone Forms: My [facility], Smoking Cessation Medications and DC Order Prescriptions: Continued (DME) Oxygen Home Liters Per Minute See Rx Instructions .ROUTE .MEDSUPPLY Qty: 2 0RF Rx Instructions: Home O2: 2LPM via Nasal cannula during sleep. Provide w/ humidification celecoxib [Celebrex] 200 mg capsule 200 mg PO QAM Qty: 90 3RF metoprolol succinate [Toprol XL] 50 mg tablet extended release 24 hr 50 mg PO QAM Qty: 90 3RF montelukast [Singulair] 10 mg tablet 10 mg PO HS Qty: 90 1RF magnesium oxide 400 mg magnesium capsule 400 mg PO QAM Qty: 0 Breztri Aerosphere 160-9-4.8 mcg/actuation HFA aerosol inhaler 2 inh inhalation BID Qty: 10.7 6RF albuterol sulfate [Ventolin HFA] 90 mcg/actuation HFA aerosol inhaler 2 inh inhalation Q4H PRN (Reason: shortness of breath) Qty: 8.5 3RF levalbuterol HCl [Xopenex] 1.25 mg/3 mL solution for nebulization 1.25 mg INHALATION Q4 PRN (Reason: Shortness Of Breath) Qty: 180 5RF (DME) Flutter Valve Device See Rx Instructions .MEDSUPPLY Qty: 1 0RF Rx Instructions: Use it every 6 hours when awake. (DME) nebulizers [facility] See Rx Instructions .ROUTE .MEDSUPPLY Qty: 1 0RF Rx Instructions: Q 4HR WITH TUBING & SUPPLIES - DX: COPD zolpidem 5 mg tablet 5 mg PO HS Qty: 30 5RF potassium chloride 20 mEq Tablet Extended Release 20 meq PO QAM pantoprazole [Protonix] 40 mg tablet,delayed release (DR/EC) 40 mg PO QAM epinephrine [EpiPen 2-Marco [place]] 0.3 mg/0.3 mL auto-injector 0.3 mg IM UD PRN (Reason: bronchodilation) Rx Instructions: 0.3 mg IM Use as Directed PRN; until response carried when did allergy injections finasteride 5 mg tablet 5 mg PO QAM Multivitamin 50 Plus Tablet 1 tab PO DAILY oxycodone-acetaminophen [Percocet] 5-325 mg Tablet 1 - 2 tab PO TID PRN (Reason: pain) Qty: 15 0RF docusate sodium [Colace] 100 mg capsule 100 mg PO BID Qty: 60 0RF famotidine [Pepcid] 20 mg Tablet 20 mg PO HS Systane (PF) 0.4-0.3 % Dropperette 1 drp OPB BID telmisartan [Micardis] 40 mg tablet 40 mg PO QAM Eylea 2 mg/0.05 mL Solution 0 mg INTRAVITREAL UD Rx Instructions: takes every 6 weeks for macular degeneration Discontinued sildenafil [Viagra] 100 mg tablet 100 mg PO DAILY PRN (Reason: sexual activity) Qty: 30 11RF Rx Instructions: administer 30 minutes to 4 hours before activity Discharge Orders: Discharge Order (Routine); Ordered 05/04/22 Ordered By: Elliot Lynch Admission Data Admit Date/Time: 04/27/22 16:32 Attending Provider: Elliot Lynch Admit Provider: Maximiliano Chacon Primary Care Provider: Malika Freed Other Providers: Maximiliano Chacon ; Arin Mendoza ; Kristie Courtney ; Gabriel Brody Julie A ; Kline, Bryan P. ; Hemalatha Yeung ; [facility] ; [place],[facility] ; [facility] ; Branden Mendez ; [facility] Healthcare Other Interventions: Discharge Summary Assessment (RN) Last Done: 05/04/22 13:55 Coding Level of Care Code D/C DAY MANAGEMENT >30 MINS Diagnoses Fever R50.9 Arthritis of left wrist M19.032 Weakness R53.1 S/P AAA repair using bifurcation graft Z95.828; Z86.79 COPD (chronic obstructive pulmonary disease) J44.9 Atrial fibrillation I48.0 Atrial fibrillation type: paroxysmal CKD (chronic kidney disease) N18.9 Dementia F03.90 Benign localized prostatic hyperplasia with lower urinary tract symptoms (LUTS) N40.1 IPMN (intraductal papillary mucinous neoplasm) D49.0
== END 2022-05-04 14:27 | disposition home health service (06) | DRG 314 ==
LOC: ED 03:14 → EDINP 03:14 → 3W 10:57 → SUATTDRO 04-27 16:32
DX: I97.89 Other postprocedural complications and disorders of the circulatory system, not elsewhere classified; N40.1 Benign prostatic hyperplasia with lower urinary tract symptoms; I12.9 Hypertensive chronic kidney disease with stage 1 through stage 4 chronic kidney disease, or unspecified chronic kidney disease; T82.330A Leakage of aortic (bifurcation) graft (replacement), initial encounter; Y71.2 Prosthetic and other implants, materials and accessory cardiovascular devices associated with adverse incidents; J44.9 Chronic obstructive pulmonary disease, unspecified; Z99.81 Dependence on supplemental oxygen; I48.91 Unspecified atrial fibrillation; Z95.818 Presence of other cardiac implants and grafts; G92.8 Other toxic encephalopathy; Z95.828 Presence of other vascular implants and grafts; Z98.890 Other specified postprocedural states; Y92.009 Unspecified place in unspecified non-institutional (private) residence as the place of occurrence of the external cause; F03.90 Unspecified dementia, unspecified severity, without behavioral disturbance, psychotic disturbance, mood disturbance, and anxiety; T42.6X5A Adverse effect of other antiepileptic and sedative-hypnotic drugs, initial encounter; Z87.891 Personal history of nicotine dependence; Z96.643 Presence of artificial hip joint, bilateral; G93.41 Metabolic encephalopathy; I74.09 Other arterial embolism and thrombosis of abdominal aorta; N18.30 Chronic kidney disease, stage 3 unspecified; D64.9 Anemia, unspecified

== ENCOUNTER 2022-08-03 11:02 | Inpatient (IN) ==
--- NOTE | 2022-08-03 12:06 | Emergency Department Note ---
History of Present Illness General Chief complaint: Foot Injury/Pain Stated complaint: RIGHT FOOT SWELLING Time Seen by Provider: 08/03/22 11:39 Source: patient and family ( at bedside) History of Present Illness Provider complaint: Right toe swelling and pain Onset (ago): week(s) 2 Location: lower extremity and right Maximum Pain Intensity: 10 Current Pain Intensity: 10 Quality: + aching, + sharp and + dull Relieved By: + none Exacerbated By: + none Associated symptoms: no chest pain, no cough, no fever/chills, no headaches, no nausea/vomiting, no seizure or no shortness of breath 82-year-old male presents emergency department with for right great toe michael n and swelling. Patient reports that he had a procedure done, an ingrown toenail removal, by a java jsf developer at [facility] on July 24, 2022. He states since then his great toe has been becoming increasingly swollen and discolored. He states he saw his PCP who ordered an ultrasound of his leg which showed poor circulation at [facility]. states they would not give her the records, she is asking that we obtain these records. She states that her PCP placed her on clindamycin and Toradol for pain for the great toe however the is concerned he might need an amputation and wants to try to avoid that. No chest pain or difficulty breathing. No abdominal pain. No melena hematochezia. No hematuria. reports that the patient has had a AAA repair done by Dr. Brody in March and they tried to see him but he was unavailable so they came to this hospital. Home Medications Medication Instructions Recorded Confirmed Type Oxygen Home #2 L 12/08/19 07/23/22 Rx nebulizers #1 ea 09/07/20 07/23/22 Rx aflibercept 2 mg/0.05 mL 0 mg intravitreal UD 06/03/21 08/03/22 History intravitreal solution for injection (Eylea) famotidine 20 mg tablet (Pepcid) 20 mg PO HS 06/03/21 08/03/22 History peg 400-propylene glycol (PF) 0.4 1 drp OPB BID 06/03/21 08/03/22 History %-0.3 % eye drops in a dropperette (Systane (PF)) Flutter Valve #1 ea 12/29/21 07/17/22 Rx albuterol sulfate 90 mcg/actuation 2 inh inhalation Q4H PRN shortness 12/29/21 08/03/22 Rx aerosol inhaler (Ventolin HFA) of breath #8.5 grams budesonide 160 mcg-glycopyr 9 2 inh inhalation BID COPD #10.7 12/29/21 08/03/22 Rx mcg-formot 4.8 mcg/actuation HFA grams inhaler (Breztri Aerosphere) magnesium oxide 400 mg PO QAM #0 caps 01/16/22 08/03/22 History epinephrine 0.3 mg/0.3 mL 0.3 mg IM UD PRN bronchodilation 04/20/22 08/03/22 History injection, auto-injector (EpiPen 2-Marco [place]) pantoprazole 40 mg tablet,delayed 40 mg PO QAM 04/20/22 08/03/22 History release (Protonix) potassium chloride 20 mEq 20 meq PO QAM 04/20/22 08/03/22 History tablet,extended release [id number]-zwhrdwnn-omnvgc 1 tab PO DAILY 04/24/22 08/03/22 History tablet (Multivitamin 50 Plus tablet) telmisartan 40 mg tablet (Micardis) 40 mg PO QAM #90 tabs 05/28/22 08/03/22 Rx montelukast 10 mg tablet 10 mg PO HS #90 tabs 06/05/22 08/03/22 Rx (Singulair) metoprolol succinate 50 mg 50 mg PO QAM #90 tabs 06/12/22 08/03/22 Rx tablet,extended release 24 hr (Toprol XL) celecoxib 200 mg capsule (Celebrex) 200 mg PO QAM #90 caps 06/15/22 08/03/22 Rx calcium carbonate 600 mg calcium 600 mg PO DAILY 06/25/22 08/03/22 History (1,500 mg) tablet (Calcium) finasteride 5 mg tablet 5 mg PO DAILY #90 tabs 06/28/22 08/03/22 Rx levalbuterol HCl 1.25 mg/3 mL 1.25 mg (3 mL) inhalation Q4 PRN 06/29/22 08/03/22 Rx solution for nebulization (Xopenex) Shortness Of Breath #180 mL clindamycin HCl 150 mg capsule 150 mg PO BID 08/03/22 08/03/22 History diclofenac sodium 1 % topical gel 2 g topical QID PRN Pain 08/03/22 08/03/22 History docusate sodium 100 mg capsule 100 mg PO BID PRN Constipation 08/03/22 08/03/22 History (Colace) Allergies Allergy/AdvReac Type Severity Reaction Status Date / Time No Known Allergies Allergy Unverified 08/03/22 16:10 Past Med/Surg History Medical History (Updated 08/03/22 @ 19:27 by Hunter Strauss) Anemia Anemia Aneurysm of infrarenal abdominal aorta 04/18/2022 - 7cm x 6.7 cm Atrial fibrillation dx 7 yrs ago Atrial fibrillation Benign localized prostatic hyperplasia with lower urinary tract symptoms (LUTS) BPH (benign prostatic hyperplasia) Carotid artery stenosis CKD (chronic kidney disease) CKD (chronic kidney disease) COPD (chronic obstructive pulmonary disease) Dementia Erectile dysfunction Erectile dysfunction GERD (gastroesophageal reflux disease) Hearing loss History of tobacco use Hypertension Hypertension Implantable loop recorder present dr ajcobson - 3 yrs ago Insomnia Neutrophilic leukocytosis Nocturnal hypoxia o2 2l at hs Osteoarthritis Syncopal episodes summer 2020 Surgical History History of left hip replacement History of right hip replacement Hx of appendectomy Hx of colonoscopy S/P AAA repair using bifurcation graft S/P endovascular aneurysm repair Family History Other Coronary heart disease Diabetes Social History Smoking Status: Former smoker Tobacco Type: Cigarettes Age Started Using Tobacco: 18; packs per day: 1; Years Smoked: 66; Cigarettes Per Day: 1pack; Smoking End Date: 2016; Second Hand Exposure: No; Do You Dip or Chew Tobacco: No; Tobacco Cessation Education Requested by Patient: No Hx Alcohol Use: No Hx Substance Use: No Preferred Language: Indian Communication Ability: Effective Visual Impairment: No Limitations Dye Blender Required: No Beliefs That Will Affect Care: None marital status: Current Living Situation: Spouse current occupational status: retired How many Children do You have: 1 Other Information That Helps Us Care for You: No other: [employer] from [id number]. Discharge rank E4. No combat injury Feels Safe at Home: Yes Safety Concerns: Feels Safe At This Time Dental Care, Regularly: No Seatbelt Use: always Sunscreen Use: Yes Assistive Devices: Hearing Aid - Bilateral and Oxygen - Continuous Assistive Devices Comment: 2L NC at night Review of Systems A total of 10 systems reviewed and were otherwise negative Physical Exam Vital Signs Vital Signs - 24 hr 08/03/22 11:16 08/03/22 11:03 08/03/22 12:06 Temperature 36.4 C L Temperature Source Oral Pulse Rate 79 89 Pulse Rhythm Regular Pulse Strength Normal Respiratory Rate 22 21 Respiratory Effort / Characteristics Non-Labored Spontaneous Respiratory Depth Normal Blood Pressure 146/80 H Blood Pressure Mean 102 Pulse Oximetry 92 98 98 Oxygen Delivery Method Room Air Room Air Sepsis Recent Fever Within 48 Hours No Sepsis New/Unexplained Change in Mental Status No Sepsis Action Taken by Nursing No Action Required Physical Exam HENT: Exam performed. - Head: Normocephalic and atraumatic. - Right Ear: External ear normal. No mastoid tenderness. - Left Ear: External ear normal. No mastoid tenderness. - Mouth/Throat: The oropharynx is clear and moist. No trismus in the jaw. No dental abscesses or uvula swelling. No oropharyngeal exudate or tonsillar abscesses. EYES: Conjunctivae and EOM are normal. Pupils are equal, round, and reactive to light. Right eye exhibits no discharge. Left eye exhibits no discharge. No scleral icterus. NECK: Normal range of motion. Neck supple. No JVD present. No spinous process tenderness present. No carotid bruit present. No rigidity. No tracheal deviation and normal range of motion present. CV: Normal rate, regular rhythm, normal heart sounds and intact distal pulses. There is no peripheral edema. Palpable radial pulses bue. PULM/CHEST: Effort normal and breath sounds normal. No respiratory distress. No stridor. He has no wheezes. He has no rales. - Chest Wall: He exhibits no tenderness. ABD: The abdomen is soft. Bowel sounds are normal. He has no distension. No mass is present. There is no tenderness. There is no rebound, no guarding, no Leonard's sign and no tenderness at McBurney's point. Rovsig negative. MUSC/SKEL: Right foot: Swelling of the right dorsum of the foot with his great toe purple. Dusky second and third toe. Toes and foot are warm and not cold. No overlying erythema. Palpable right DP pulse no signal present for the right PT pulse. LYMPH: No cervical adenopathy. NEURO: He is alert and oriented to person, place, and time. He has normal strength. No cranial nerve deficit or sensory deficit. Coordination and gait normal. GCS eye subscore is 4. GCS verbal subscore is 5. GCS motor subscore is 6. Cerebellar tests wnl. VASCULAR: Palpable femoral arteries bilaterally. Signal present for the right DP pulse no signal present for the right PT pulse. Course Course 1139: The patient was evaluated in room A11. A complete history and physical exam was performed Cardiac monitoring: An order was placed for continuous cardiac monitoring. The monitor shows a rate of 80 with sinus rhythm 1220: Spoke with Dr. Lay java jsf developer from [facility] [phone]. She states that the patient's java jsf developer Dr. Madrigal and Dr. Skinner are not available but she looked into the patient's records and states that they were concerned about microemboli and the patient's great toe and thus referred him to the emergency department. She stated that they do not have any operating or clinical privileges at this facility. 1228: Received results back from the patient's NATHALIA done at [facility] 2 days ago. Patient has NATHALIA values that suggest moderate right and mild left arterial insufficiency. Waveform analysis suggest bilateral tibial occlusive/small vessel disease. NATHALIA of the right ASSESSMENT MANAGER is 0.6.4 right DPA 0.62. NATHALIA of the left ASSESSMENT MANAGER 0.88 and left DPA 0.71. Spoke with Kristie SWEENEY for Dr. Brody. I explained to her the results of the NATHALIA done 2 days ago. I explained to her the concern for an ischemic toe and podiatry's concern for micro emboli. She discussed with Dr. Brody who recommends to repeat the arterial ultrasound here and states she is not sure if any surgical intervention can be done to revascularize the foot and she states that if the patient's pain is too much that they should be admitted to medicine and then the vascular surgery team can evaluate him on consult. I did discuss with her if it would be worth speaking to podiatry at this facility and she stated that that would be a good idea. 1237: Spoke with Dr. Ventura podiatry. I explained to him the NATHALIA results and the clinical presentation. I discussed my conversation with the vascular surgery team with him. He states he will be happy to evaluate and agrees with the plan to admit to medicine and states he will see the patient on consult. He agrees with starting the patient on broad-spectrum antibiotics vancomycin and Zosyn ordered for the patient. 1253: Discussed the plan to admit to medicine and have vascular surgery and podiatry on consult. and patient are in agreement and thinks me for speaking with all the different consultants. Ultrasound is ordered and BMP is pending. CBC shows no leukocytosis. Discussed case with [facility] hospitalist Dr. Donovan who will admit the patient. Administered Medications Tramadol HCl (Tramadol Hcl 50 Mg Tablet) 50 mg PO Q4H PRN PRN Reason: Pain (4,5,6+) Stop: 09/02/22 13:57 Last Admin: 08/03/22 14:28 Dose: 50 mg Documented By: AZUL Discontinued Medications Piperacillin Sod/Tazobactam Sod (Zosyn) 4.5 gm in 120 mls @ 240 mls/hr IV NOW ONE Stop: 08/03/22 13:24 Last Infusion: 08/03/22 15:31 Dose: 0 mls/hr Documented By: Admin: 08/03/22 14:00 Dose: 240 mls/hr Documented By: AZUL Vancomycin HCl 1,250 mg/ (Sodium Chloride) 525 mls @ 200 mls/hr IV NOW ONE Stop: 08/03/22 15:37 Last Infusion: 08/03/22 17:25 Dose: 0 mls/hr Documented By: Admin: 08/03/22 14:42 Dose: 200 mls/hr Documented By: AZUL Medical Decision Making Laboratory Data Result diagrams: 08/03/22 12:19 08/03/22 12:19 Lab Results 08/03/22 08/03/22 08/03/22 Range/Units 12:19 12:19 12:19 WBC 10.23 (4.8-10.8) K/ul RBC 3.67 L (4.63-6.08) M/uL Hgb 11.1 L (14.0-18.0) g/dl Hct 35.2 L (40.1-51.0) % MCV 95.9 (80.0-100.0) fL MCH 30.2 (25.0-34.0) pg MCHC 31.5 L (32.0-36.0) g/dL RDW Std Deviation 48.4 H (36.4-46.3) fL RDW Coeff of Alan 13.7 (11.5-14.5) % Plt Count 203 (130-400) K/uL MPV 9.4 (9.4-12.4) fL Immature Gran % (Auto) 0.3 % Neut % (Auto) 78.1 % Lymph % (Auto) 10.9 % [place] % (Auto) 8.3 % Eos % (Auto) 1.8 % Baso % (Auto) 0.6 % Neut # (Auto) 7.99 H (1.4-6.5) K/uL Lymph # (Auto) 1.12 L (1.2-3.4) K/uL [place] # (Auto) 0.85 H (0.24-0.82) K/uL Eos # (Auto) 0.18 (0-0.50) K/uL Baso # (Auto) 0.06 (0-0.2) K/uL Immature Gran # (Auto) 0.03 H (0.00-0.02) K/uL ESR (0-20) mm/hr PT 11.2 (9.0-12.0) Seconds INR 1.1 (0.9-1.1) APTT 29.1 (21.0-31.0) Seconds PTT Ratio 1.1 Sodium 140 (136-145) mmol/L Potassium 4.0 (3.5-5.1) mmol/L Chloride 107 (98-107) mmol/L Carbon Dioxide 27 (21-32) mmol/L Anion Gap 6 (3-11) BUN 24 H (6-23) mg/dl Creatinine 1.16 (0.6-1.4) mg/dl Est Cr Clr Drug Dosing Not Reportable Est GFR ( Amer) 66.7 ml/min Est GFR (Non-Af Amer) 57.5 ml/min BUN/Creatinine Ratio 20.7 H (10-20) Glucose 140 H (70-99(Fasting)) mg/dl Calcium 8.8 (8.5-10.1) mg/dl C-Reactive Protein (0-0.5) mg/dl SARS-CoV-2, RNA, NAAT (NEGATIVE) 08/03/22 08/03/22 08/03/22 Range/Units 12:19 12:19 12:55 WBC (4.8-10.8) K/ul RBC (4.63-6.08) M/uL Hgb (14.0-18.0) g/dl Hct (40.1-51.0) % MCV (80.0-100.0) fL MCH (25.0-34.0) pg MCHC (32.0-36.0) g/dL RDW Std Deviation (36.4-46.3) fL RDW Coeff of Alan (11.5-14.5) % Plt Count (130-400) K/uL MPV (9.4-12.4) fL Immature Gran % (Auto) % Neut % (Auto) % Lymph % (Auto) % [place] % (Auto) % Eos % (Auto) % Baso % (Auto) % Neut # (Auto) (1.4-6.5) K/uL Lymph # (Auto) (1.2-3.4) K/uL [place] # (Auto) (0.24-0.82) K/uL Eos # (Auto) (0-0.50) K/uL Baso # (Auto) (0-0.2) K/uL Immature Gran # (Auto) (0.00-0.02) K/uL ESR 60 H (0-20) mm/hr PT (9.0-12.0) Seconds INR (0.9-1.1) APTT (21.0-31.0) Seconds PTT Ratio Sodium (136-145) mmol/L Potassium (3.5-5.1) mmol/L Chloride (98-107) mmol/L Carbon Dioxide (21-32) mmol/L Anion Gap (3-11) BUN (6-23) mg/dl Creatinine (0.6-1.4) mg/dl Est Cr Clr Drug Dosing Est GFR ( Amer) ml/min Est GFR (Non-Af Amer) ml/min BUN/Creatinine Ratio (10-20) Glucose (70-99(Fasting)) mg/dl Calcium (8.5-10.1) mg/dl C-Reactive Protein 11.68 H (0-0.5) mg/dl SARS-CoV-2, RNA, NAAT NEGATIVE (NEGATIVE) Imaging Data Radiologist's Impression: Duplex Scan Lower Extremity Artery 08/03/22 12:29 US arterial duplex LE RT HISTORY: 82 years-old Male ro PAD peripheral arterial disease COMPARISON: None TECHNIQUE: Multiple real-time sonographic images of the right lower extremity arterial structures were obtained assessing grayscale appearance, color and spectral flow FINDINGS: Scattered atherosclerotic plaque. Triphasic waveforms are noted about the level of the knee. Elevated peak systolic velocities within the mid aspect of the superficial femoral artery measure up to 187 cm per. No additional significantly elevated peak systolic velocities are identified. No arterial occlusion. And monophasic and biphasic waveforms noted below the level of the knee. Spectral broadening noted within the distal peroneal and dorsalis pedis arteries with monophasic waveforms. IMPRESSION: 1. Atherosclerotic vascular disease with elevated peak systolic velocities in the superficial femoral artery suggestive of stenosis of at least 50%. 2. No arterial occlusion. 3. Monophasic waveforms within the lower leg. ACT 112: Negative or not required by law. The above report was generated using voice recognition software. It may contain grammatical, syntax or spelling errors. Electronically signed by: Deepak Briggs M.D. 08/03/2022 2:08 PM [facility] Narrative 1139: The patient was evaluated in room A11. A complete history and physical exam was performed Cardiac monitoring: An order was placed for continuous cardiac monitoring. The monitor shows a rate of 80 with sinus rhythm 1220: Spoke with Dr. Lay java jsf developer from [facility] [phone]. She states that the patient's java jsf developer Dr. Madrigal and Dr. Skinner are not available but she looked into the patient's records and states that they were concerned about microemboli and the patient's great toe and thus referred him to the emergency department. She stated that they do not have any operating or clinical privileges at this facility. 1228: Received results back from the patient's NATHALIA done at [facility] 2 days ago. Patient has NATHALIA values that suggest moderate right and mild left arterial insufficiency. Waveform analysis suggest bilateral tibial occlusive/small vessel disease. NATHALIA of the right ASSESSMENT MANAGER is 0.6.4 right DPA 0.62. NATHALIA of the left ASSESSMENT MANAGER 0.88 and left DPA 0.71. Spoke with Kristie SWEENEY for Dr. Brody. I explained to her the results of the NATHALIA done 2 days ago. I explained to her the concern for an ischemic toe and podiatry's concern for micro emboli. She stated to repeat the arterial ultrasound here and states she is not sure if any surgical intervention can be done to revascularize the foot and she states that if the patient's pain is too much that they should be admitted to medicine and then the vascular surgery team can evaluate him on consult. I did discuss with her if it would be worth speaking to podiatry at this facility and she stated that that would be a good idea. 1237: Spoke with Dr. Ventura podiatry. I explained to him the NATHALIA results and the clinical presentation. I discussed my conversation with the vascular surgery team with him. He states he will be happy to evaluate and agrees with the plan to admit to medicine and states he will see the patient on consult. He agrees with starting the patient on broad-spectrum antibiotics vancomycin and Zosyn ordered for the patient. 1253: Discussed the plan to admit to medicine and have vascular surgery and podiatry on consult. and patient are in agreement and thinks me for speaking with all the different consultants. Ultrasound is ordered and BMP is pending. CBC shows no leukocytosis. Discussed case with [facility] hospitalist Dr. Donovan who will admit the patient. Impression & Plan Ischemic ulcer of right foot Discharge Plan Visit Data Chief Complaint: Foot Injury/Pain Stated Complaint: RIGHT FOOT SWELLING ED Provider: Hunter Strauss Discharge Problem: Ischemic ulcer of right foot Patient Disposition: Admitted As Inpatient Discharge Instructions Interventions: ED Discharge Assessment Last Done: 08/03/22 15:50
[2022-08-03 12:43] LABS: Basophils # (auto) 0.06 K/uL (0-0.2); Basophils % (auto) 0.6 %; Eosinophils # (auto) 0.18 K/uL (0-0.50); Eosinophils % (auto) 1.8 %; Hematocrit (blood only) 35.2 % (40.1-51.0); Hemoglobin 11.1 g/dl (14.0-18.0); Immature Granulocytes # (auto) 0.03 K/uL (0.00-0.02); Immature Granulocytes % (auto) 0.3 %; Lymphocytes # (auto) 1.12 K/uL (1.2-3.4); Lymphocytes % (auto) 10.9 %; Mean Corpuscular Hemoglobin 30.2 pg (25.0-34.0); Mean Corpuscular Hgb Conc 31.5 g/dL (32.0-36.0); Mean Corpuscular Volume 95.9 fL (80.0-100.0); Mean Platelet Volume 9.4 fL (9.4-12.4); Monocytes # (auto) 0.85 K/uL (0.24-0.82); Monocytes % (auto) 8.3 %; Neutrophils # (auto) 7.99 K/uL (1.4-6.5); Neutrophils % (auto) 78.1 %; Platelet Count 203 K/uL (130-400); RDW Coefficient of Variation 13.7 % (11.5-14.5); RDW Standard Deviation 48.4 fL (36.4-46.3); Red Blood Count 3.67 M/uL (4.63-6.08); White Blood Count 10.23 K/ul (4.8-10.8)
[2022-08-03] MEDS ORDERED: PIPERACILLIN/TAZOBACTAM 4.5 GM/120 ML BAG IV ONE (12:55)
--- NOTE | 2022-08-03 12:57 | History & Physical Report ---
Date of Service August 03, 2022 Assessment & Plan (1) Ischemic ulcer of right foot: Plan: -Admit to med surge -Patient is currently afebrile, hemodynamically stable, stable on RA and non- toxic appearing -Sent to the ED by podiatry due to concerns for ischemic great right toe and infection in right foot -Vascular surgery and podiatry consults already placed by ED, they will both evaluate -RLE arterial Doppler currently in process -Continue with Vanc and zosyn for now until otherwise specified by the specialists -Will keep NPO for now until he is evaluated by both specialists -Pain control with Tylenol and tramadol for now, may need to escalate, would av oid NSAIDs with his history of GI ulcers and bleeds, will hold home Celebrex for now due to likely procedure in the near future -Will obtain blood cultures, ESR, and CRP now -Monitor AM CBC, CMP, PT/INR (2) Dementia: Plan: -Baseline is alert and oriented to person, place, month, year, and president, currently at baseline -Not on medication (3) COPD (chronic obstructive pulmonary disease): Plan: -Stable on RA -Contique scheduled breathing treatments -Incentive spirometry while admitted (4) Atrial fibrillation: Plan: -HR currently controlled -Not on anticoagulation due to multiple GI ulcers and GI bleeds -Continue metoprolol (5) Nocturnal hypoxia: Plan: -HS 2L NC ordered (6) Hypertension: Plan: -Continue telmisartan (7) GERD (gastroesophageal reflux disease): Plan: -Continue protonix and famotidine (8) BPH (benign prostatic hyperplasia): Plan: -Continue famotidine Plan The patient was discussed with Dr. Donovan at the time of the admission History of Present Illness Chief Complaint: Right foot swelling Primary Care Provider: ANGELITA Moody Ian is an 82 year old male with a PMH significant for Dementia, Afib (not on anticoagulation due to multiple GI bleeds), COPD (moderately severe) on 2L NC HS, impaired fasting glucose, HTN, Infrarenal AA S/P endovascular repair on 04/24/[address] 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 Per chart review, the patient recently had an ingrown toenail removed by his rehabilitation caseworker on 07/24/22. He subsequently experienced increased pain and swelling in his leg. His PCP had him get a NATHALIA of the leg which showed moderate right and mild left arterial insufficiency. The patient's PCP started him on Clindamycin and toradol for pain. His brought him to the ED today due to concerns for worsening infection and fear that the toe would need to be amputated. Per the ED staff, they spoke with vascular surgery and Podiatry. Unfortunately his normal Continuous Improvement Coordinator does not have Privileges at [facility], they sent him to the ED today due to concerns for microemboli in the patient's great toe. Vascular surgery recommended repeating the NATHALIA today for further evaluation. Dr. Ventura of Podiatry stated that he would evaluate the patient to see what treatments would be needed, her recommended medicine admit due to the patient's chronic medication conditions. For now the patient will be started on broad spectrum antibiotics and repeat imaging has been ordered by the ED staff. In the ED the patient was found to be afebrile, hemodynamically stable, and stable on RA. Labs were remarkable for WBC WNL, stable Hgb at 11.1, stable renal function and electrolytes, pending covid test. Prior to admission the patient was started on Zosyn and Vancomycin in the ED. At the time of my exam the patient was arriving back from his vascular study, he is in no acute distress. The majority of the history was obtained from the patient's who is his primary caregiver. They state that he was in his normal state of health until he had an ingrown toenail removed approximately two weeks ago by his rehabilitation caseworker. His states that a few days after the procedure the patient was still experiencing significant great right toe pain so they went back on 07/24/22. At that appointment the rehabilitation caseworker removed more of his ingrown toenail. His states that his great right toe was slightly discolored at that appointment. After his appointment on 07/24 the his pain swelling continued to progress. We was seen again in the podiatry office on 07/31, this is when he was placed on Clindamycin and toradol and his initial NATHALIA was obtained. At the present time the patient states that his right toe and foot pain is an 8/10. He states that his pain is slightly improved when he lets his leg hang over the side of the bed. He denies recent fevers, chills, changes in vision, hearing, taste, and smell, chest pain, SOB more than his baseline, abdominal pain, nausea, vomiting, diarrhea, dysuria, hematuria, and recent falls. I spoke to the patient and his regarding code status, he is a coditional code. He does NOT want CPR but would want all other ACLS measures including intubation if needed. Allergies Allergy/AdvReac Type Severity Reaction Status Date / Time No Known Allergies Allergy Unverified 08/03/22 16:10 Home Medications Medication Instructions Recorded Confirmed Type Oxygen Home #2 L 12/08/19 07/23/22 Rx nebulizers #1 ea 09/07/20 07/23/22 Rx aflibercept 2 mg/0.05 mL 0 mg intravitreal UD 06/03/21 08/03/22 History intravitreal solution for injection (Eylea) famotidine 20 mg tablet (Pepcid) 20 mg PO HS 06/03/21 08/03/22 History peg 400-propylene glycol (PF) 0.4 1 drp OPB BID 06/03/21 08/03/22 History %-0.3 % eye drops in a dropperette (Systane (PF)) Flutter Valve #1 ea 12/29/21 07/17/22 Rx albuterol sulfate 90 mcg/actuation 2 inh inhalation Q4H PRN shortness 12/29/21 08/03/22 Rx aerosol inhaler (Ventolin HFA) of breath #8.5 grams budesonide 160 mcg-glycopyr 9 2 inh inhalation BID COPD #10.7 12/29/21 08/03/22 Rx mcg-formot 4.8 mcg/actuation HFA grams inhaler (Breztri Aerosphere) magnesium oxide 400 mg PO QAM #0 caps 01/16/22 08/03/22 History epinephrine 0.3 mg/0.3 mL 0.3 mg IM UD PRN bronchodilation 04/20/22 08/03/22 History injection, auto-injector (EpiPen 2-[place]) pantoprazole 40 mg tablet,delayed 40 mg PO QAM 04/20/22 08/03/22 History release (Protonix) potassium chloride 20 mEq 20 meq PO QAM 04/20/22 08/03/22 History tablet,extended release amyhiqgvhdts-xssyesvx-diyaoc 1 tab PO DAILY 04/24/22 08/03/22 History tablet (Multivitamin 50 Plus tablet) telmisartan 40 mg tablet (Micardis) 40 mg PO QAM #90 tabs 05/28/22 08/03/22 Rx montelukast 10 mg tablet 10 mg PO HS #90 tabs 06/05/22 08/03/22 Rx (Singulair) metoprolol succinate 50 mg 50 mg PO QAM #90 tabs 06/12/22 08/03/22 Rx tablet,extended release 24 hr (Toprol XL) celecoxib 200 mg capsule (Celebrex) 200 mg PO QAM #90 caps 06/15/22 08/03/22 Rx calcium carbonate 600 mg calcium 600 mg PO DAILY 06/25/22 08/03/22 History (1,500 mg) tablet (Calcium) finasteride 5 mg tablet 5 mg PO DAILY #90 tabs 06/28/22 08/03/22 Rx levalbuterol HCl 1.25 mg/3 mL 1.25 mg (3 mL) inhalation Q4 PRN 06/29/22 08/03/22 Rx solution for nebulization (Xopenex) Shortness Of Breath #180 mL clindamycin HCl 150 mg capsule 150 mg PO BID 08/03/22 08/03/22 History diclofenac sodium 1 % topical gel 2 g topical QID PRN Pain 08/03/22 08/03/22 History docusate sodium 100 mg capsule 100 mg PO BID PRN Constipation 08/03/22 08/03/22 History (Colace) clopidogrel 75 mg tablet 75 mg PO QAM 30 days #30 tabs 08/10/22 Rx Past Med/Surg History Medical History (Updated 08/10/22 @ 12:36 by Suzette Zimmerman DO) Anemia Anemia Aneurysm of infrarenal abdominal aorta 04/18/2022 - 7cm x 6.7 cm Atrial fibrillation dx 7 yrs ago Atrial fibrillation Benign localized prostatic hyperplasia with lower urinary tract symptoms (LUTS) BPH (benign prostatic hyperplasia) Carotid artery stenosis CKD (chronic kidney disease) CKD (chronic kidney disease) COPD (chronic obstructive pulmonary disease) Dementia Erectile dysfunction Erectile dysfunction GERD (gastroesophageal reflux disease) Hearing loss History of tobacco use Hypertension Hypertension Implantable loop recorder present dr jacobson - 3 yrs ago Insomnia Neutrophilic leukocytosis Nocturnal hypoxia o2 2l at hs Osteoarthritis Syncopal episodes summer 2020 Surgical History History of left hip replacement History of right hip replacement Hx of appendectomy Hx of colonoscopy S/P AAA repair using bifurcation graft S/P endovascular aneurysm repair Family History Other Coronary heart disease Diabetes Social History Smoking Status: Former smoker Tobacco Type: Cigarettes Age Started Using Tobacco: 18; packs per day: 1; Cigarettes Per Day: 1pack; Second Hand Exposure: No; Hx Alcohol Use: No Hx Substance Use: No Preferred Language: Tunisian Communication Ability: Effective Visual Impairment: No Limitations Signal Supervisor Required: No Beliefs That Will Affect Care: None marital status: Current Living Situation: Spouse current occupational status: retired How many Children do You have: 1 other: [employer] from [id number]. Discharge rank E4. No combat injury Feels Safe at Home: Yes Dental Care, Regularly: No Seatbelt Use: always Sunscreen Use: Yes Assistive Devices: None Review of Systems Review of Systems: Denies current fever, chills, headache, changes in vision, hearing, taste, and smell, chest pain, SOB, cough, abdominal pain, nausea, vomiting, diarrhea, hematemesis, melena, dysuria, hematuria, and recent falls. All systems have been reviewed and are otherwise negative. Physical Exam Physical Exam: Physical Exam: General: In no acute distress, stated age, well-nourished, good hygiene HEENT: Normocephalic, atraumatic, no scleral icterus, pupils around round, symmetrical, and reactive to light, moist mucus membranes, trachea midline, no thyromegaly Chest/Pulm: No respiratory distress, symmetrical chest expansion, clear breath sounds throughout Cardiac: RRR, no murmurs noted Abdomen: Negative for ascites and bruising, normoactive bowel sounds, soft, non-tender to palpation throughout Musculoskeletal: Patient with discolored great right toe, the proximal portion of the great right tow is erythematous and has a small bullae which is still intact, some erythema noted on the dorsal aspect of the right foot Extremities: Radial, dorsalis pedis, and posterior tibial pulses are intact and symmetrical, +1 pitting edema in the LLE, +2 pitting edema in the RLE Skin: Warm, dry, as described above Neuro: Alert and oriented to person, place, month, year, and president, no focal defects, CN II-XII tested and intact, finger to nose test negative, no tremors noted Psych: No acute distress, calm and cooperative during the exam Results & Data Results & Data ([facility]) Vital Signs (Past 12 Hours) Vital Signs Temp Pulse Resp BP Pulse Ox O2 Del Method 08/03/22 12:06 89 21 98 08/03/22 11:03 98 Room Air 08/03/22 11:16 36.4 C L 79 22 146/80 H 92 Room Air Laboratory Results Abnormal lab results 08/03/22 08/03/22 Range/Units 12:19 12:19 RBC 3.67 L (4.63-6.08) M/uL Hgb 11.1 L (14.0-18.0) g/dl Hct 35.2 L (40.1-51.0) % MCHC 31.5 L (32.0-36.0) g/dL RDW Std Deviation 48.4 H (36.4-46.3) fL Neut # (Auto) 7.99 H (1.4-6.5) K/uL Lymph # (Auto) 1.12 L (1.2-3.4) K/uL [place] # (Auto) 0.85 H (0.24-0.82) K/uL Immature Gran # (Auto) 0.03 H (0.00-0.02) K/uL BUN 24 H (6-23) mg/dl BUN/Creatinine Ratio 20.7 H (10-20) Glucose 140 H (70-99(Fasting)) mg/dl ECG Additional Comments: No ECG available at the time of the admission, will obtain one now Code Status & VTE Plan Code Status Conditional code; NO CPR; would want everything else besides CPR including intubation VTE Prophylaxis Plan VTE Prophylaxis will be ordered: Yes Supervising Physician Co-Signing Physician Notes Patient seen and examined at bedside. During face to face encounter, I obtained a history and physical examination. I reviewed above note and agree with it. I discussed plan of care with patient and DAVID Salcedo. Patient admitted for ischemic right foot, likely will require amputation of great toe. will monitor and consult podiatry. PG Care Time/CCT Total # of Minutes Spent Total Time Spent with Patient: Total time spent is greater than 50% in coordination of care (as documented) at patient's floor/unit and/or counseling patient: [place] [address] Initial Inpt Care Lvl 2 Patient Type Established Medical Decision Making Moderate Complexity Diagnoses Ischemic ulcer of right foot L97.519 Dementia F03.90 COPD (chronic obstructive pulmonary disease) J44.9 Atrial fibrillation I48.91 Nocturnal hypoxia G47.34 Hypertension I10 Hypertension type: essential hypertension GERD (gastroesophageal reflux disease) K21.9 BPH (benign prostatic hyperplasia) N40.0 (1) Hypertension Hypertension type: essential hypertension Qualified Code(s): I10 - Essential (primary) hypertension
[2022-08-03 12:59] LABS: INR 1.1 (0.9-1.1); Partial Thromboplastin Ratio 1.1; Partial Thromboplastin Time 29.1 Seconds (21.0-31.0); Prothrombin Time 11.2 Seconds (9.0-12.0)
[2022-08-03] MEDS ORDERED: VANCOMYCIN HCL 1,250 MG in SODIUM CHLORIDE 0.9% 500 ML IV ONE (13:00)
[2022-08-03] MEDS ORDERED: VANCOMYCIN CONSULT ACTIVE PRN (13:00)
[2022-08-03 13:06] LABS: Anion Gap 6 (3-11); BUN Creatinine Ratio 20.7 (10-20); Blood Urea Nitrogen 24 mg/dl (6-23); Calcium 8.8 mg/dl (8.5-10.1); Carbon Dioxide 27 mmol/L (21-32); Chloride 107 mmol/L (98-107); Est GFR (African American) 66.7 ml/min; Est GFR (Non-African American) 57.5 ml/min; Glucose 140 mg/dl (70-99(Fasting)); Sodium 140 mmol/L (136-145)
--- NOTE | 2022-08-03 14:10 | Ultrasound Report ---
US arterial duplex LE RT HISTORY: 82 years-old Male ro PAD peripheral arterial disease COMPARISON: None TECHNIQUE: Multiple real-time sonographic images of the right lower extremity arterial structures wer e obtained assessing grayscale appearance, color and spectral flow FINDINGS: Scattered atherosclerotic plaque. Triphasic waveforms are noted about the level of the knee. Elevated peak systolic velocities within the mid aspect of the superficial femoral artery measure up to 187 c m per. No additional significantly elevated peak systolic velocities are identified. No arterial occl usion. And monophasic and biphasic waveforms noted below the level of the knee. Spectral broadening n oted within the distal peroneal and dorsalis pedis arteries with monophasic waveforms. IMPRESSION: 1. Atherosclerotic vascular disease with elevated peak systolic velocities in the superficial femoral artery suggestive of stenosis of at least 50%. 2. No arterial occlusion. 3. Monophasic waveforms within the lower leg. ACT 112: Negative or not required by law. The above report was generated using voice recognition software. It may contain grammatical, syntax o r spelling errors. Electronically signed by: Deepak Briggs M.D. 08/03/2022 2:08 PM
[2022-08-03] MEDS: traMADol HCL 50 MG TABLET PO PRN ×2 (14:28→20:29)
[2022-08-03] MEDS ORDERED: LEVALBUTEROL HCL 1.25 MG/3 ML NEB INH PRN (16:15)
[2022-08-03] MEDS ORDERED: ALBUTEROL HFA 8 GM INHALER INH PRN (16:15)
--- NOTE | 2022-08-03 16:56 | Pharmacy Report ---
Pharmacy PK ABX Note - Date of Service August 03, 2022 - Assessment and Plan Assessment 82 year old M receiving vancomycin/Zosyn for treatment of ischemic great toe. Pertinent microbiologic data includes: N/A. Day # 1 of antimicrobial therapy. Plan Vancomycin * Loading dose: 1250 mg IV x 1 * Maintenance dose: 1000 mg IV every 24 hours * Regimen is predicted to achieve target AUC/MIRIAN of 400-600 mg/L.hr * Random level ordered for: 08/06/22 Pharmacy will continue to follow and will adjust dose/frequency as necessary. Thank you. Pharmacy has transitioned to AUC monitoring for vancomycin. AUC/MIRIAN is the preferred PK/PD target and is associated with decreased risk of nephrotoxicity compared to traditional trough targets.
[2022-08-03 17:37] LABS: INR 1.1 (0.9-1.1); Prothrombin Time 11.2 Seconds (9.0-12.0)
[2022-08-03] MEDS: PIPERACILLIN/TAZOBACTAM 3.375 GM in DEXTROSE 5% 100 ML IV SCH (20:28)
[2022-08-03] MEDS: MONTELUKAST SODIUM 10 MG TABLET PO SCH (20:29)
[2022-08-03] MEDS: FAMOTIDINE 20 MG TAB PO SCH (20:29)
[2022-08-03] MEDS: MELATONIN 3 MG TAB PO SCH (20:29)
--- NOTE | 2022-08-03 21:28 | XRay Report ---
XR foot RT min 3V routine CLINICAL HISTORY: Right great toe infection. COMPARISON: None FINDINGS: Hallux valgus deformity is noted with severe osteoarthritis of the right first metatarsoph alangeal joint. Given first toe deformity, the right first distal phalanx is partially obscured on th is exam. However, there is no evidence for acute osteomyelitis. No acute fracture is identified. IMPRESSION: 1. No radiographic evidence of acute osteomyelitis within the right great toe. No acute fracture. 2. Hallux valgus with osteoarthritis of the right first metatarsophalangeal joint. ACT 112: Negative or not required by law. Electronically signed by: Walter Johnson M.D. 08/03/2022 9:26 PM
[2022-08-04] MEDS: PIPERACILLIN/TAZOBACTAM 3.375 GM in DEXTROSE 5% 100 ML IV SCH ×3 (04:53→20:03)
--- NOTE | 2022-08-04 08:21 | Hospitalist Progress Note ---
Date of Service August 04, 2022 Assessment & Plan (1) Ischemic ulcer of right foot: Plan: -Patient is currently afebrile, hemodynamically stable, stable on RA and non- toxic appearing -Sent to the ED by podiatry due to concerns for ischemic great right toe and infection in right foot -Vascular surgery and podiatry consults already placed by ED, they will both evaluate -RLE arterial doppler as stated above, no arterial occlusion - Xray right foot with no osteomyelitis -Continue with Vanc and zosyn for now until otherwise specified by the specialists -Await blood culture results -Pain control with Tylenol and tramadol for now, may need to escalate, would a void NSAIDs with his history of GI ulcers and bleeds, will hold home Celebrex for now due to likely procedure in the near future -Monitor AM labs and vitals -Continue Incentive spirometry -Changed code status to DNR/DNI patient and aware this status changes when has surgery -Continue heart healthy diet (2) Dementia: Plan: -Baseline is alert and oriented to person, place, month, year, and president, currently at baseline -Not on medication (3) COPD (chronic obstructive pulmonary disease): Plan: -Stable on RA -Contique scheduled breathing treatments -Incentive spirometry while admitted (4) Atrial fibrillation: Plan: -HR currently controlled -Not on anticoagulation due to multiple GI ulcers and GI bleeds -Continue metoprolol (5) Nocturnal hypoxia: Plan: -HS 2L NC ordered (6) Hypertension: Plan: -Continue telmisartan (7) GERD (gastroesophageal reflux disease): Plan: -Continue protonix and famotidine (8) BPH (benign prostatic hyperplasia): Plan: -Continue finasteride Plan The patient was discussed with Dr. Donovan Admission and Anticipated Discharge Date Admission Date: August 03, 2022 Subjective Attending: Dr Donovan This is a 82 year old male with a past medical history of Afib (not on anticoagulation due to multiple GI bleeds), COPD on 2L NC at night, impaired fasting glucose, HTN, Infrarenal AA S/P endovascular repair on 04/24/[address] 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 Per chart review, the patient recently had an ingrown toenail removed by his electronic assembler group leader on 07/24/22. He subsequently experienced increased pain and swelling in his leg. His PCP had him get a NATHALIA of the leg which showed moderate right and mild left arterial insufficiency. The patient's PCP started him on Clindamycin and toradol for pain. His brought him to the ED today due to concerns for worsening infection and fear that the toe would need to be amputated. His regular electronic assembler group leader suggested they come to the ED for concerns for ischemic great toe and infection of the foot. Vascular surgery recommended repeating the NATHALIA. Dr Ventura of podiatry was consulted because patient's regular electronic assembler group leader does not have privileges here at [facility]. Patient was made NPO and started on vancomycin and zosyn. Patient complains of pain in the right great toe and top of right foot x several weeks. Patient denies any injury or trauma with the exception of the ingrown toenail removal on 07/24. Patient states he has been unable to walk on this foot very well due to the pain but has not had any falls. Patient admits to increased swelling in the foot and ankle area over the last week as well as increased pain and discoloration of the great toe. Patient had x ray of right foot 08/03/22 that revealed no osteomyelitis Patient had ultrasound arterial duplex of the right foot that revealed atherosclerotic vascular disease with elevated peak systolic velocities in the superficial femoral artery suggestive of stenosis of at least 50% No arterial occlusion Monophasic waveforms within the lower leg Review of Systems Review of Systems: Denies current fever, chills, headache, changes in vision, hearing, taste, and smell, chest pain, SOB, cough, abdominal pain, nausea, vomiting, diarrhea, hematemesis, melena, dysuria, hematuria, and recent falls. All systems have been reviewed and are otherwise negative unless stated above in the HPI Physical Exam Constitutional: WD/WN, vitals as above ENMT: false teeth top and few teeth bottom (poor dentition) oropharyx is pink and moist Neck is supple Respiratory: normal respiratory effort, lungs clear to auscultation Cardiovascular: Rate/Rhythm: regular rate and regular rhythm Extremities: + edema + 1-2 pitting edema right ankle, trace edema left ankle Posterior tibial, dorsalis pedis and popliteal pulses are intact and symmetrical Gastrointestinal (Abdomen): normal bowel sounds, soft, nontender, no hepatosplenomegaly Skin: Right great toe -discolored, swollen, the proximal portion of the toe is erythematous with vascular changes and small blistered areas, which are still intact and erythema extending into the dorsal aspect of the right foot. Neurologic: moves all extremities and awake Speech / Cognition: normal speech and normal cognition Psychiatric: A+Ox3, euthymic affect Results & Data Results & Data ([facility]) Vital Signs (Past 12 Hours) Vital Signs Temp Pulse Resp BP BP Pulse Ox O2 Del Method 08/04/22 07:11 37.5 C 78 22 164/94 H 98 Nasal Cannula 08/03/22 22:28 37.6 C H 98 H 18 167/83 H 93 Nasal Cannula O2 Flow Rate 08/04/22 07:11 1.5 08/03/22 22:28 2 Laboratory Results Laboratory Results - last 24 hr 08/03/22 08/03/22 08/03/22 12:19 12:19 12:19 WBC 10.23 RBC 3.67 L Hgb 11.1 L Hct 35.2 L MCV 95.9 MCH 30.2 MCHC 31.5 L RDW Std Deviation 48.4 H RDW Coeff of Alan 13.7 Plt Count 203 MPV 9.4 Immature Gran % (Auto) 0.3 Neut % (Auto) 78.1 Lymph % (Auto) 10.9 Adams % (Auto) 8.3 Eos % (Auto) 1.8 Baso % (Auto) 0.6 Neut # (Auto) 7.99 H Lymph # (Auto) 1.12 L Adams # (Auto) 0.85 H Eos # (Auto) 0.18 Baso # (Auto) 0.06 Immature Gran # (Auto) 0.03 H ESR PT 11.2 INR 1.1 APTT 29.1 PTT Ratio 1.1 Sodium 140 Potassium 4.0 Chloride 107 Carbon Dioxide 27 Anion Gap 6 BUN 24 H Creatinine 1.16 Est Cr Clr Drug Dosing Not Reportable Est GFR ( Amer) 66.7 Est GFR (Non-Af Amer) 57.5 BUN/Creatinine Ratio 20.7 H Glucose 140 H Calcium 8.8 Total Bilirubin AST ALT Alkaline Phosphatase C-Reactive Protein Total Protein Albumin Globulin Albumin/Globulin Ratio SARS-CoV-2, RNA, NAAT 08/03/22 08/03/22 08/03/22 12:19 12:19 12:55 WBC RBC Hgb Hct MCV MCH MCHC RDW Std Deviation RDW Coeff of Alan Plt Count MPV Immature Gran % (Auto) Neut % (Auto) Lymph % (Auto) Adams % (Auto) Eos % (Auto) Baso % (Auto) Neut # (Auto) Lymph # (Auto) Adams # (Auto) Eos # (Auto) Baso # (Auto) Immature Gran # (Auto) ESR 60 H PT INR APTT PTT Ratio Sodium Potassium Chloride Carbon Dioxide Anion Gap BUN Creatinine Est Cr Clr Drug Dosing Est GFR ( Amer) Est GFR (Non-Af Amer) BUN/Creatinine Ratio Glucose Calcium Total Bilirubin AST ALT Alkaline Phosphatase C-Reactive Protein 11.68 H Total Protein Albumin Globulin Albumin/Globulin Ratio SARS-CoV-2, RNA, NAAT NEGATIVE 08/03/22 08/04/22 08/04/22 16:49 11:04 11:04 WBC 10.78 RBC 3.65 L Hgb 11.1 L Hct 33.5 L MCV 91.8 MCH 30.4 MCHC 33.1 RDW Std Deviation 45.3 RDW Coeff of Alan 13.5 Plt Count 195 MPV 9.1 L Immature Gran % (Auto) Neut % (Auto) Lymph % (Auto) Adams % (Auto) Eos % (Auto) Baso % (Auto) Neut # (Auto) Lymph # (Auto) Adams # (Auto) Eos # (Auto) Baso # (Auto) Immature Gran # (Auto) ESR PT 11.2 INR 1.1 APTT PTT Ratio Sodium 136 Potassium 4.0 Chloride 100 Carbon Dioxide 30 Anion Gap 6 BUN 17 Creatinine 1.22 Est Cr Clr Drug Dosing 41.4 Est GFR ( Amer) 62.7 Est GFR (Non-Af Amer) 54.1 BUN/Creatinine Ratio 13.9 Glucose 106 H Calcium 8.9 Total Bilirubin 0.6 AST 13 ALT 9 Alkaline Phosphatase 102 C-Reactive Protein Total Protein 6.6 Albumin 3.5 Globulin 3.1 Albumin/Globulin Ratio 1.1 SARS-CoV-2, RNA, NAAT 08/04/22 11:04 WBC RBC Hgb Hct MCV MCH MCHC RDW Std Deviation RDW Coeff of Alan Plt Count MPV Immature Gran % (Auto) Neut % (Auto) Lymph % (Auto) Adams % (Auto) Eos % (Auto) Baso % (Auto) Neut # (Auto) Lymph # (Auto) Adams # (Auto) Eos # (Auto) Baso # (Auto) Immature Gran # (Auto) ESR PT 11.7 INR 1.1 APTT PTT Ratio Sodium Potassium Chloride Carbon Dioxide Anion Gap BUN Creatinine Est Cr Clr Drug Dosing Est GFR ( Amer) Est GFR (Non-Af Amer) BUN/Creatinine Ratio Glucose Calcium Total Bilirubin AST ALT Alkaline Phosphatase C-Reactive Protein Total Protein Albumin Globulin Albumin/Globulin Ratio SARS-CoV-2, RNA, NAAT PG Care Time/CCT Total # of Minutes Spent Total Time Spent with Patient: Total time spent is greater than 50% in coordination of care (as documented) at patient's floor/unit and/or counseling patient: Coding Level of Care Code 08518 Subseq Hosp Care Lvl 3 History Detailed Exam Detailed Medical Decision Making High Complexity Diagnoses Ischemic ulcer of right foot L97.519 Dementia F03.90 COPD (chronic obstructive pulmonary disease) J44.9 Atrial fibrillation I48.91 Nocturnal hypoxia G47.34 Hypertension I10 Hypertension type: essential hypertension GERD (gastroesophageal reflux disease) K21.9 BPH (benign prostatic hyperplasia) N40.0 (1) Hypertension Hypertension type: essential hypertension Qualified Code(s): I10 - Essential (primary) hypertension
[2022-08-04] MEDS: BUDESONIDE/GLYCOPYR/FORMOTEROL INHALER INH SCH ×2 (09:06→09:10)
[2022-08-04] MEDS: POTASSIUM CHLORIDE CRTAB 20 MEQ TABCR PO SCH (09:09)
[2022-08-04] MEDS: MAGNESIUM OXIDE 400 MG TAB PO SCH (09:09)
[2022-08-04] MEDS: METOPROLOL SUCC 50MG EXT REL TAB PO SCH (09:09)
[2022-08-04] MEDS: TELMISARTAN 40 MG TAB PO SCH (09:09)
[2022-08-04] MEDS: PANTOprazole 40 MG TAB PO SCH (09:09)
[2022-08-04] MEDS: traMADol HCL 50 MG TABLET PO PRN ×3 (09:09→17:32)
[2022-08-04] MEDS: FINASTERIDE 5 MG TAB PO SCH (09:10)
[2022-08-04] MEDS: CALCIUM CARBONATE 1250MG TAB PO SCH (09:10)
[2022-08-04] MEDS: CEROVITE ADV FORMULA TAB PO SCH (09:10)
[2022-08-04] MEDS: VANCOMYCIN HCL 1,000 MG in SODIUM CHLORIDE 0.9% 250 ML IV SCH (09:10)
[2022-08-04 11:17] LABS: Hematocrit (blood only) 33.5 % (40.1-51.0); Hemoglobin 11.1 g/dl (14.0-18.0); Mean Corpuscular Hemoglobin 30.4 pg (25.0-34.0); Mean Corpuscular Hgb Conc 33.1 g/dL (32.0-36.0); Mean Corpuscular Volume 91.8 fL (80.0-100.0); Mean Platelet Volume 9.1 fL (9.4-12.4); Platelet Count 195 K/uL (130-400); RDW Coefficient of Variation 13.5 % (11.5-14.5); RDW Standard Deviation 45.3 fL (36.4-46.3); Red Blood Count 3.65 M/uL (4.63-6.08); White Blood Count 10.78 K/ul (4.8-10.8)
[2022-08-04 11:34] LABS: INR 1.1 (0.9-1.1); Prothrombin Time 11.7 Seconds (9.0-12.0)
[2022-08-04 11:48] LABS: Albumin Globulin Ratio 1.1 (0.9-2); Albumin Level 3.5 gm/dl (3.4-5.0); BUN Creatinine Ratio 13.9 (10-20); Bilirubin,Total 0.6 mg/dl (0.2-1.0); Calcium 8.9 mg/dl (8.5-10.1); Creatinine Clr Calc Pharmacy 41.4 ml/min; Est GFR (African American) 62.7 ml/min; Est GFR (Non-African American) 54.1 ml/min; Globulin 3.1 gm/dl (2.5-4.0); Total Protein 6.6 gm/dl (6.0-8.3)
--- NOTE | 2022-08-04 13:27 | Electrocardiogram Report ---
Test Reason : Blood Pressure : / mmHG Vent. Rate : 081 BPM Atrial Rate : 081 BPM P-R Int : 190 ms QRS Dur : 110 ms QT Int : 418 ms P-R-T Axes : 072 -58 051 degrees QTc Int : 485 ms Poor data quality, interpretation may be adversely affected Sinus rhythm with frequent Premature ventricular complexes in a pattern of bigeminy Left anterior fascicular block Incomplete right bundle branch block Septal infarct (cited on or before 20-APR-2022) Abnormal ECG When compared with ECG of 26-APR-2022 03:19, Premature ventricular complexes are now Present Confirmed by Zia Mendoza ([id number]) on 08/04/2022 1:27:33 PM Referred By: REFERRED SELF Confirmed By:Zia Mendoza
[2022-08-04] MEDS: MELATONIN 3 MG TAB PO SCH (20:03)
[2022-08-04] MEDS: FAMOTIDINE 20 MG TAB PO SCH (20:03)
[2022-08-04] MEDS: MONTELUKAST SODIUM 10 MG TABLET PO SCH (20:04)
[2022-08-05] MEDS: PIPERACILLIN/TAZOBACTAM 3.375 GM in DEXTROSE 5% 100 ML IV SCH ×3 (04:33→20:00)
[2022-08-05] MEDS ORDERED: ONDANSETRON INJ 2 MG/ML 2 ML VIAL IV PRN (06:32)
[2022-08-05] MEDS: traMADol HCL 50 MG TABLET PO PRN ×3 (06:46→20:52)
[2022-08-05 07:12] LABS: Hematocrit (blood only) 39.3 % (40.1-51.0); Hemoglobin 12.9 g/dl (14.0-18.0); Mean Corpuscular Hemoglobin 30.5 pg (25.0-34.0); Mean Corpuscular Hgb Conc 32.8 g/dL (32.0-36.0); Mean Corpuscular Volume 92.9 fL (80.0-100.0); Mean Platelet Volume 9.4 fL (9.4-12.4); Platelet Count 256 K/uL (130-400); RDW Coefficient of Variation 13.1 % (11.5-14.5); RDW Standard Deviation 44.3 fL (36.4-46.3); Red Blood Count 4.23 M/uL (4.63-6.08); White Blood Count 13.45 K/ul (4.8-10.8)
[2022-08-05 07:40] LABS: Albumin Level 3.8 gm/dl (3.4-5.0); BUN Creatinine Ratio 11.7 (10-20); Bilirubin,Total 0.7 mg/dl (0.2-1.0); Calcium 9.1 mg/dl (8.5-10.1); Creatinine Clr Calc Pharmacy 42.1 ml/min; Est GFR (Non-African American) 55.2 ml/min; Globulin 3.9 gm/dl (2.5-4.0); Potassium 3.6 mmol/L (3.5-5.1); Total Protein 7.7 gm/dl (6.0-8.3)
[2022-08-05 07:48] LABS: INR 1.2 (0.9-1.1); Prothrombin Time 12.7 Seconds (9.0-12.0)
[2022-08-05] MEDS: BUDESONIDE/GLYCOPYR/FORMOTEROL INHALER INH SCH ×3 (08:36→20:00)
[2022-08-05] MEDS: CALCIUM CARBONATE 1250MG TAB PO SCH (08:36)
[2022-08-05] MEDS: PANTOprazole 40 MG TAB PO SCH (08:36)
--- NOTE | 2022-08-05 08:36 | Hospitalist Progress Note ---
Date of Service August 05, 2022 Assessment & Plan (1) Ischemic ulcer of right foot: Plan: -Patient is currently afebrile, hemodynamically stable, stable on RA and non- toxic appearing -Sent to the ED by podiatry due to concerns for ischemic great right toe and infection in right foot -RLE arterial doppler as stated above, no arterial occlusion -Xray right foot with no osteomyelitis -Vascular surgery and podiatry consults placed -Podiatry planning on possible amputation of right great toe and would like to time amputation with angioplasty to maximize healing potential -Continue with Vancomycin and Zosyn for now until otherwise specified by the specialists -Await blood culture results (initial blood cultures x 2 on 08/03/22 negative and repeat blood cultures x 2 today) -Pain control with Tylenol and tramadol for now, may need to escalate, would avoid NSAIDs with his history of GI ulcers and bleeds, will hold home Celebrex for now due to likely procedure in the near future - Gave dose of Tylenol today for headache - per Dr Ventura and Dr Donovan ok to give Celebrex 200mg -Monitor labs and vitals -Continue Incentive spirometry -Changed code status to DNR/DNI patient and aware this status changes when has surgery -Continue heart healthy diet -PT/OT order placed (2) Dementia: Plan: -Baseline is alert and oriented to person, place, month, year, and president, currently at baseline -Not on medication (3) COPD (chronic obstructive pulmonary disease): Plan: -Stable on RA -Contique scheduled breathing treatments -Incentive spirometry while admitted (4) Atrial fibrillation: Plan: -HR currently controlled -Not on anticoagulation due to multiple GI ulcers and GI bleeds -Continue metoprolol (5) Nocturnal hypoxia: Plan: -HS 2L NC ordered (6) Hypertension: Plan: -Continue telmisartan 40mg daily and Toprol XL 50 mg daily (7) GERD (gastroesophageal reflux disease): Plan: -Continue protonix and famotidine (8) BPH (benign prostatic hyperplasia): Plan: -Continue finasteride Plan The patient was discussed with Dr. Donovan Admission and Anticipated Discharge Date Admission Date: August 03, 2022 Subjective Attending: Dr Donovan This is a 82 year old male with a past medical history of Afib (not on anticoagulation due to multiple GI bleeds), COPD on 2L NC at night, impaired fasting glucose, HTN, Infrarenal AA S/P endovascular repair on 04/24/[address] 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 Per chart review, the patient recently had an ingrown toenail removed by his financial systems analyst on 07/24/22. He subsequently experienced increased pain and swelling in his leg. His PCP had him get a NATHALIA of the leg which showed moderate right and mild left arterial insufficiency. The patient's PCP started him on Clindamycin and toradol for pain. His brought him to the ED today due to concerns for worsening infection and fear that the toe would need to be amputated. His regular financial systems analyst suggested they come to the ED for concerns for ischemic great toe and infection of the foot. Vascular surgery recommended repeating the NATHALIA. Dr Ventura of podiatry was consulted because patient's regular financial systems analyst does not have privileges here at [place]. Patient had x ray of right foot 08/03/22 that revealed no osteomyelitis Patient had ultrasound arterial duplex of the right foot that revealed atherosclerotic vascular disease with elevated peak systolic velocities in the superficial femoral artery suggestive of stenosis of at least 50% No arterial occlusion Monophasic waveforms within the lower leg Blood cultures 08/03/22 x 2 are no growth and repeat blood cultures today are pending. WBC 13.4 up from 10, Na 134 (136) Patient is on a heart healthy diet and continues on vancomycin and zosyn. Patient was complaining of a headache today and was given Tylenol 650 mg, he also had a dose of Tramadol prior to the Tylenol Celebrex initially was placed on hold for possible surgery Patient and his were concerned with the Celebrex being on hold. The stated that when he stopped Celebrex in the past he had an exacerbation of arthritis and gout. I messaged Dr Ventura and he stated that Celebrex would be fine. Review of Systems Review of Systems: Denies current fever, chills, changes in vision, hearing, taste, and smell, chest pain, SOB, cough, abdominal pain, nausea, vomiting, diarrhea, hematemesis, melena, dysuria, hematuria, and recent falls. All systems have been reviewed and are otherwise negative unless stated above in the HPI + right foot/1st toe pain + frontal headache, denies any photophobia + arthralgias Physical Exam Constitutional: WD/WN, vitals as above (NAD awake, pleasant and talkative) Eyes: PERRL, conjunctivae normal, anicteric sclerae Respiratory: normal respiratory effort, lungs clear to auscultation Cardiovascular: Rate/Rhythm: regular rate and regular rhythm Extremities: + edema (+1-2 pitting edema right ankle) Gastrointestinal (Abdomen): normal bowel sounds, soft, nontender, no hepatosplenomegaly Skin: + erythema discolored right first toe with erythema, swelling, excoriated area proximal aspect of dorsum DIP joint, thickened nails and arthritic changes/contracted 2-4 toes Neurologic: moves all extremities and awake Speech / Cognition: normal speech and normal cognition Psychiatric: A+Ox3, euthymic affect Results & Data Results & Data ([facility]) Vital Signs (Past 12 Hours) Vital Signs Temp Pulse Resp BP BP Pulse Ox O2 Del Method 08/05/22 07:34 37.2 C 89 20 179/97 H 96 Nasal Cannula 08/04/22 23:43 168/86 H 175/90 H 08/04/22 23:13 37.1 C 91 H 18 182/84 H 172/103 H 96 Room Air O2 Flow Rate 08/05/22 07:34 2 08/04/22 23:43 08/04/22 23:13 Laboratory Results Abnormal lab results 08/05/22 08/05/22 08/05/22 Range/Units 06:44 06:44 06:44 WBC 13.45 H (4.8-10.8) K/ul RBC 4.23 L (4.63-6.08) M/uL Hgb 12.9 L (14.0-18.0) g/dl Hct 39.3 L (40.1-51.0) % PT 12.7 H (9.0-12.0) Seconds INR 1.2 H (0.9-1.1) Sodium 134 L (136-145) mmol/L Chloride 95 L (98-107) mmol/L Anion Gap 12 H (3-11) Glucose 113 H (70-99(Fasting)) mg/dl Alkaline Phosphatase 111 H (34-104) U/L PG Care Time/CCT Total # of Minutes Spent Total Time Spent with Patient: Total time spent is greater than 50% in coordination of care (as documented) at patient's floor/unit and/or counseling patient: Coding [place] [address] Subseq Hosp Care Lvl 3 Patient Type Established History Detailed Exam Detailed Diagnoses Ischemic ulcer of right foot L97.519 Dementia F03.90 COPD (chronic obstructive pulmonary disease) J44.9 Atrial fibrillation I48.91 Nocturnal hypoxia G47.34 Hypertension I10 Hypertension type: essential hypertension GERD (gastroesophageal reflux disease) K21.9 BPH (benign prostatic hyperplasia) N40.0 Time Spent (min) 30 (1) Hypertension Hypertension type: essential hypertension Qualified Code(s): I10 - Essential (primary) hypertension
[2022-08-05] MEDS: MAGNESIUM OXIDE 400 MG TAB PO SCH (08:37)
[2022-08-05] MEDS: TELMISARTAN 40 MG TAB PO SCH (08:37)
[2022-08-05] MEDS: METOPROLOL SUCC 50MG EXT REL TAB PO SCH (08:37)
[2022-08-05] MEDS: CEROVITE ADV FORMULA TAB PO SCH (08:37)
[2022-08-05] MEDS: FINASTERIDE 5 MG TAB PO SCH (08:37)
[2022-08-05] MEDS: POTASSIUM CHLORIDE CRTAB 20 MEQ TABCR PO SCH (08:37)
[2022-08-05] MEDS: VANCOMYCIN HCL 1,000 MG in SODIUM CHLORIDE 0.9% 250 ML IV SCH (08:42)
[2022-08-05] MEDS: ACETAMINOPHEN 325 MG TAB PO PRN ×3 (09:33→19:58)
[2022-08-05] MEDS: CeleBREX 200 MG CAP PO SCH (14:12)
--- NOTE | 2022-08-05 18:03 | Orthopedic Consultation ---
Date of Consultation August 03, 2022 Assessment & Plan (1) Ischemic ulcer of right foot: Plan Patient seen, evaluated, and treated. Patient ischemic toe is advancing to necrosis. There is concern Patient's ability to heal an amputation. This was discussed with Patient and . They are aware that any amputation may require additional surgical care ultimately resulting in more proximal amputation. We will await further demarcation until Monday 08/06 at which time resection of non viable tissue is planned. Appreciate any available intervention by vascular to maximize perfusion. Thank you for allowing me to participate in the care of this Patient. History of Present Illness Attending Physician: Ian Donovan History of Present Illness Patient is an 82-year-old male who is seen at bedside for ischemic right great toe. PMH significant for Dementia, Afib (not on anticoagulation due to multiple GI bleeds), COPD (moderately severe) on 2L NC HS, impaired fasting glucose, HTN, Infrarenal AA S/P endovascular repair on 04/24/[address] 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 Patient reports that he had an ingrown toenail removal, by a lens grinder and polisher at [facility] for ankle and foot care on July 24, 2022. He states since then his great toe has been becoming increasingly swollen and discolored. He states he saw his PCP who ordered an ultrasound of his leg which showed poor circulation at [facility].NATHALIA of .62 RLE. Allergies Allergy/AdvReac Type Severity Reaction Status Date / Time No Known Allergies Allergy Unverified 08/03/22 16:10 Home Medications Medication Instructions Recorded Confirmed Type Oxygen Home #2 L 12/08/19 07/23/22 Rx nebulizers #1 ea 09/07/20 07/23/22 Rx aflibercept 2 mg/0.05 mL 0 mg intravitreal UD 06/03/21 08/03/22 History intravitreal solution for injection (Eylea) famotidine 20 mg tablet (Pepcid) 20 mg PO HS 06/03/21 08/03/22 History peg 400-propylene glycol (PF) 0.4 1 drp OPB BID 06/03/21 08/03/22 History %-0.3 % eye drops in a dropperette (Systane (PF)) Flutter Valve #1 ea 12/29/21 07/17/22 Rx albuterol sulfate 90 mcg/actuation 2 inh inhalation Q4H PRN shortness 12/29/21 08/03/22 Rx aerosol inhaler (Ventolin HFA) of breath #8.5 grams budesonide 160 mcg-glycopyr 9 2 inh inhalation BID COPD #10.7 12/29/21 08/03/22 Rx mcg-formot 4.8 mcg/actuation HFA grams inhaler (Breztri Aerosphere) magnesium oxide 400 mg PO QAM #0 caps 01/16/22 08/03/22 History epinephrine 0.3 mg/0.3 mL 0.3 mg IM UD PRN bronchodilation 04/20/22 08/03/22 History injection, auto-injector (EpiPen 2-Marco Antonio) pantoprazole 40 mg tablet,delayed 40 mg PO QAM 04/20/22 08/03/22 History release (Protonix) potassium chloride 20 mEq 20 meq PO QAM 04/20/22 08/03/22 History tablet,extended release ygvozlsknpcg-qjcbkisz-hmynsf 1 tab PO DAILY 04/24/22 08/03/22 History tablet (Multivitamin 50 Plus tablet) telmisartan 40 mg tablet (Micardis) 40 mg PO QAM #90 tabs 05/28/22 08/03/22 Rx montelukast 10 mg tablet 10 mg PO HS #90 tabs 06/05/22 08/03/22 Rx (Singulair) metoprolol succinate 50 mg 50 mg PO QAM #90 tabs 06/12/22 08/03/22 Rx tablet,extended release 24 hr (Toprol XL) celecoxib 200 mg capsule (Celebrex) 200 mg PO QAM #90 caps 06/15/22 08/03/22 Rx calcium carbonate 600 mg calcium 600 mg PO DAILY 06/25/22 08/03/22 History (1,500 mg) tablet (Calcium) finasteride 5 mg tablet 5 mg PO DAILY #90 tabs 06/28/22 08/03/22 Rx levalbuterol HCl 1.25 mg/3 mL 1.25 mg (3 mL) inhalation Q4 PRN 06/29/22 08/03/22 Rx solution for nebulization (Xopenex) Shortness Of Breath #180 mL clindamycin HCl 150 mg capsule 150 mg PO BID 08/03/22 08/03/22 History diclofenac sodium 1 % topical gel 2 g topical QID PRN Pain 08/03/22 08/03/22 History docusate sodium 100 mg capsule 100 mg PO BID PRN Constipation 08/03/22 08/03/22 History (Colace) Patient History Medical History Anemia Anemia Aneurysm of infrarenal abdominal aorta 04/18/2022 - 7cm x 6.7 cm Atrial fibrillation dx 7 yrs ago Atrial fibrillation Benign localized prostatic hyperplasia with lower urinary tract symptoms (LUTS) BPH (benign prostatic hyperplasia) Carotid artery stenosis CKD (chronic kidney disease) CKD (chronic kidney disease) COPD (chronic obstructive pulmonary disease) Dementia Erectile dysfunction Erectile dysfunction GERD (gastroesophageal reflux disease) Hearing loss History of tobacco use Hypertension Hypertension Implantable loop recorder present dr jacobson - 3 yrs ago Insomnia Neutrophilic leukocytosis Nocturnal hypoxia o2 2l at hs Osteoarthritis Syncopal episodes summer 2020 Surgical History History of left hip replacement History of right hip replacement Hx of appendectomy Hx of colonoscopy S/P AAA repair using bifurcation graft S/P endovascular aneurysm repair Family History Other Coronary heart disease Diabetes Social History Smoking Status: Former smoker Tobacco Type: Cigarettes Age Started Using Tobacco: 18; packs per day: 1; Years Smoked: 66; Cigarettes Per Day: 1pack; Smoking End Date: 2016; Second Hand Exposure: No; Do You Dip or Chew Tobacco: No; Tobacco Cessation Education Requested by Patient: No Hx Alcohol Use: No Hx Substance Use: No Preferred Language: Surinamese Communication Ability: Effective Visual Impairment: No Limitations Traffic Control Officer Required: No Beliefs That Will Affect Care: None marital status: Current Living Situation: Spouse current occupational status: retired How many Children do You have: 1 Other Information That Helps Us Care for You: No other: [employer] from [id number]. Discharge rank E4. No combat injury Feels Safe at Home: Yes Safety Concerns: Feels Safe At This Time Dental Care, Regularly: No Seatbelt Use: always Sunscreen Use: Yes Assistive Devices: Hearing Aid - Bilateral and Oxygen - Continuous Assistive Devices Comment: 2L NC at night Review of Systems Review of Systems: All systems reviewed & are unremarkable except as noted in HPI & below Physical Exam Constitutional: WD/WN, vitals as above Cardiovascular: Pedal pulses non palpable. Absent RESEARCH INSTRUMENTATION TECHNICIAN to right first digit. Delayed second and third digits of right foot. Proximal to distal cooling. Skin: Right great toe is dark and dusky consistent with ischemia. Second and third right toes also show concern. Neurologic: Epcritic sensation intact. Results & Data ([facility]) Vital Signs (Past 12 Hours) Vital Signs Temp Pulse Pulse Resp BP BP Pulse Ox 08/03/22 15:50 68 20 96 08/03/22 14:02 73 22 173/89 H 95 08/03/22 12:06 89 21 98 08/03/22 11:03 98 08/03/22 11:16 36.4 C L 79 22 146/80 H 92 O2 Del Method 08/03/22 15:50 Room Air 08/03/22 14:02 Room Air 08/03/22 12:06 08/03/22 11:03 Room Air 08/03/22 11:16 Room Air
--- NOTE | 2022-08-05 18:29 | Orthopedic Progress Note ---
Date of Service August 05, 2022 Assessment & Plan (1) Ischemic ulcer of right foot: Plan: Patient seen, evaluated, and treated. I reviewed surgical plan with Patient and . Awaiting Vascular consult saturday. Patient continues on vancomycin and zosyn Reviewed x-ray and x-ray findings. There is no gas and no signs of osteomyelitis Patient had ultrasound arterial duplex of the right foot that revealed atherosclerotic vascular disease with elevated peak systolic velocities in the superficial femoral artery suggestive of stenosis of at least 50%. No arterial occlusion. Monophasic waveforms within the lower leg. I did discuss surgical amputation and concern for Patient ability to heal incision site. Patient and understand possible need for more proximal surgical care following initial amputation. I reviewed procedure in detail as well as postoperative recovery. I discussed expectations and patient's current weightbearing status. All questions answered. I have discussed procedure in detail as well as postoperative recovery. All potential risks, benefits, complications, alternatives, rehab, potential for incomplete relief of symptoms, need for further surgery, DVT, PE, , persistent pain, swelling, scarring, weakness, neurovascular, wound complications and potential for amputations were discussed with patient. Unwanted outcomes such as, but not limited to were reviewed including under correction, overcorrection, return of deformity, infection. All questions were answered. Patient has decided to proceed with procedure as indicated. Admission and Anticipated Discharge Date Admission Date: August 03, 2022 Subjective Patient seen at bedside with who helps with history and care. They have no complaints but are concerned about pending amputation. Review of Systems Review of Systems: All systems reviewed & are unremarkable except as noted in HPI & below Physical Exam Skin: Ischemic right first, second, third toes. RIght hallux shows signs of necrosis. Results & Data ([facility]) Vital Signs (Past 12 Hours) Vital Signs Temp Pulse Resp BP BP Pulse Ox O2 Del Method 08/05/22 15:40 37.3 C 82 18 155/70 H 91 Room Air 08/05/22 11:03 135/79 08/05/22 07:34 37.2 C 89 20 179/97 H 96 Nasal Cannula O2 Flow Rate 08/05/22 15:40 08/05/22 11:03 08/05/22 07:34 2
[2022-08-05] MEDS: MELATONIN 3 MG TAB PO SCH (20:00)
[2022-08-05] MEDS: FAMOTIDINE 20 MG TAB PO SCH (20:00)
[2022-08-05] MEDS: MONTELUKAST SODIUM 10 MG TABLET PO SCH (20:00)
[2022-08-06] MEDS: PIPERACILLIN/TAZOBACTAM 3.375 GM in DEXTROSE 5% 100 ML IV SCH ×3 (04:41→20:36)
[2022-08-06 07:01] LABS: Hematocrit (blood only) 33.5 % (40.1-51.0); Hemoglobin 11.2 g/dl (14.0-18.0); Mean Corpuscular Hemoglobin 30.5 pg (25.0-34.0); Mean Corpuscular Hgb Conc 33.4 g/dL (32.0-36.0); Mean Corpuscular Volume 91.3 fL (80.0-100.0); Mean Platelet Volume 9.7 fL (9.4-12.4); Platelet Count 210 K/uL (130-400); RDW Coefficient of Variation 13.2 % (11.5-14.5); RDW Standard Deviation 44.8 fL (36.4-46.3); Red Blood Count 3.67 M/uL (4.63-6.08); White Blood Count 9.32 K/ul (4.8-10.8)
[2022-08-06 07:12] LABS: INR 1.2 (0.9-1.1)
[2022-08-06 07:46] LABS: Albumin Globulin Ratio 0.9 (0.9-2); Albumin Level 3.1 gm/dl (3.4-5.0); BUN Creatinine Ratio 12.4 (10-20); Bilirubin,Total 0.4 mg/dl (0.2-1.0); Calcium 8.5 mg/dl (8.5-10.1); Creatinine Clr Calc Pharmacy 44.7 ml/min; Est GFR (African American) 68.8 ml/min; Est GFR (Non-African American) 59.4 ml/min; Globulin 3.3 gm/dl (2.5-4.0); Potassium 3.6 mmol/L (3.5-5.1); Total Protein 6.4 gm/dl (6.0-8.3)
[2022-08-06] MEDS: traMADol HCL 50 MG TABLET PO PRN (07:49)
[2022-08-06] MEDS: ACETAMINOPHEN 325 MG TAB PO PRN ×2 (08:57→14:21)
[2022-08-06] MEDS: MAGNESIUM OXIDE 400 MG TAB PO SCH (08:57)
[2022-08-06] MEDS: METOPROLOL SUCC 50MG EXT REL TAB PO SCH (08:57)
[2022-08-06] MEDS: CALCIUM CARBONATE 1250MG TAB PO SCH (08:57)
[2022-08-06] MEDS: TELMISARTAN 40 MG TAB PO SCH (08:57)
[2022-08-06] MEDS: FINASTERIDE 5 MG TAB PO SCH (08:57)
[2022-08-06] MEDS: PANTOprazole 40 MG TAB PO SCH (08:57)
[2022-08-06] MEDS: CeleBREX 200 MG CAP PO SCH (08:57)
[2022-08-06] MEDS: POTASSIUM CHLORIDE CRTAB 20 MEQ TABCR PO SCH (08:58)
[2022-08-06] MEDS: BUDESONIDE/GLYCOPYR/FORMOTEROL INHALER INH SCH ×2 (08:58→20:37)
[2022-08-06] MEDS: CEROVITE ADV FORMULA TAB PO SCH (08:58)
[2022-08-06] MEDS: VANCOMYCIN HCL 1,000 MG in SODIUM CHLORIDE 0.9% 250 ML IV SCH (08:58)
--- NOTE | 2022-08-06 10:42 | Anesthesiology Consultation ---
Date of Service August 06, 2022 Assessment & Plan (1) Encounter for pre-operative examination: Chart Review Chart Review: administrative assistant data entry initiated History Surgery Operation Date: 08/06/22 09:30 Proposed Procedures p Right Amputation Toe - Papito Ventura DPM, MS Height/Weight Height: 5 ft 10 in Weight: 64.9 kg Allergies Allergy/AdvReac Type Severity Reaction Status Date / Time No Known Allergies Allergy Unverified 08/03/22 16:10 Medications Home Medications Medication Instructions Recorded Confirmed Last Taken Oxygen Home #2 L 12/08/19 07/23/22 Unknown nebulizers #1 ea 09/07/20 07/23/22 Unknown aflibercept 2 mg/0.05 mL 0 mg intravitreal UD 06/03/21 08/03/22 03/13/22 intravitreal solution for injection (Eylea) famotidine 20 mg tablet (Pepcid) 20 mg PO HS 06/03/21 08/03/22 04/23/22 21:00 peg 400-propylene glycol (PF) 0.4 1 drp OPB BID 06/03/21 08/03/22 04/24/22 07:00 %-0.3 % eye drops in a dropperette (Systane (PF)) Flutter Valve #1 ea 12/29/21 07/17/22 Unknown albuterol sulfate 90 mcg/actuation 2 inh inhalation Q4H PRN shortness 12/29/21 08/03/22 Unknown aerosol inhaler (Ventolin HFA) of breath #8.5 grams budesonide 160 mcg-glycopyr 9 2 inh inhalation BID COPD #10.7 12/29/21 08/03/22 04/24/22 07:00 mcg-formot 4.8 mcg/actuation HFA grams inhaler (Breztri Aerosphere) magnesium oxide 400 mg PO QAM #0 caps 01/16/22 08/03/22 04/23/22 07:00 epinephrine 0.3 mg/0.3 mL 0.3 mg IM UD PRN bronchodilation 04/20/22 08/03/22 Unknown injection, auto-injector (EpiPen 2-Marco Antonio) pantoprazole 40 mg tablet,delayed 40 mg PO QAM 04/20/22 08/03/22 04/24/22 07:00 release (Protonix) potassium chloride 20 mEq 20 meq PO QAM 04/20/22 08/03/22 04/23/22 21:00 tablet,extended release [id number] 1 tab PO DAILY 04/24/22 08/03/22 04/23/22 07:00 tablet (Multivitamin 50 Plus tablet) telmisartan 40 mg tablet (Micardis) 40 mg PO QAM #90 tabs 05/28/22 08/03/22 Unknown montelukast 10 mg tablet 10 mg PO HS #90 tabs 06/05/22 08/03/22 Unknown (Singulair) metoprolol succinate 50 mg 50 mg PO QAM #90 tabs 06/12/22 08/03/22 Unknown tablet,extended release 24 hr (Toprol XL) celecoxib 200 mg capsule (Celebrex) 200 mg PO QAM #90 caps 06/15/22 08/03/22 Unk nown calcium carbonate 600 mg calcium 600 mg PO DAILY 06/25/22 08/03/22 Unknown (1,500 mg) tablet (Calcium) finasteride 5 mg tablet 5 mg PO DAILY #90 tabs 06/28/22 08/03/22 Unknown levalbuterol HCl 1.25 mg/3 mL 1.25 mg (3 mL) inhalation Q4 PRN 06/29/22 08/03/22 Unknown solution for nebulization (Xopenex) Shortness Of Breath #180 mL clindamycin HCl 150 mg capsule 150 mg PO BID 08/03/22 08/03/22 08/03/22 09:00 diclofenac sodium 1 % topical gel 2 g topical QID PRN Pain 08/03/22 08/03/22 Unknown docusate sodium 100 mg capsule 100 mg PO BID PRN Constipation 08/03/22 08/03/22 Unknown (Colace) Active Medications Generic Name Dose Route Start Last Admin Trade Name Freq PRN Reason Stop Dose Admin Acetaminophen 650 mg 08/05/22 09:11 08/06/22 08:57 Acetaminophen 325 Mg Tab PO 09/04/22 09:10 650 mg Q4H PRN Administration Pain or Fever Budesonide/Glycopyrr/Formoterol Fum 2 ea 08/03/22 21:00 08/06/22 08:58 Budesonide/Glycopyr/Formoterol Inhaler INH 09/02/22 20:59 2 ea Q12H MARISA Administration Calcium Carbonate 1,250 mg 08/04/22 09:00 08/06/22 08:57 Calcium Carbonate 1250mg Tab PO 09/03/22 08:59 1,250 mg DAILY MARISA Administration Celecoxib 200 mg 08/05/22 13:30 08/06/22 08:57 Celebrex 200 Mg Cap PO 09/04/22 13:29 200 mg QAM MARISA Administration Famotidine 20 mg 08/03/22 21:00 08/05/22 20:00 Famotidine 20 Mg Tab PO 09/02/22 20:59 20 mg HS MARISA Administration Finasteride 5 mg 08/04/22 09:00 08/06/22 08:57 Finasteride 5 Mg Tab PO 09/03/22 08:59 5 mg DAILY MARISA Administration Piperacillin Sod/Tazobactam 115 mls @ 28.75 mls/hr 08/03/22 20:00 08/06/22 08:52 Sod 3.375 gm/ Dextrose IV 08/10/22 19:59 Infused Q8H MARISA Infusion Protocol Vancomycin HCl 1,000 mg/ 270 mls @ 200 mls/hr 08/04/22 09:00 08/06/22 10:26 Sodium Chloride IV 08/11/22 08:59 Infused Q24H MARISA Infusion Protocol Magnesium Oxide 400 mg 08/04/22 09:00 08/06/22 08:57 Magnesium Oxide 400 Mg Tab PO 09/03/22 08:59 400 mg DAILY MARISA Administration Melatonin 9 mg 08/03/22 21:00 08/05/22 20:00 Melatonin 3 Mg Tab PO 09/02/22 20:59 9 mg HS MARISA Administration Metoprolol Succinate 50 mg 08/04/22 09:00 08/06/22 08:57 Metoprolol Succ 50mg Ext Rel Tab PO 09/03/22 08:59 50 mg QAM MARISA Administration Montelukast Sodium 10 mg 08/03/22 21:00 08/05/22 20:00 Montelukast Sodium 10 Mg Tablet PO 09/02/22 20:59 10 mg HS MARISA Administration Multivitamins/Minerals 1 tab 08/04/22 09:00 08/06/22 08:58 Cerovite Adv Formula Tab PO 09/03/22 08:59 1 tab DAILY MARISA Administration Pantoprazole Sodium 40 mg 08/04/22 09:00 11/07/22 08:57 Pantoprazole 40 Mg Tab PO 09/03/22 08:59 40 mg QAM MARISA Administration Potassium Chloride 20 meq 08/04/22 09:00 08/06/22 08:58 Potassium Chloride Crtab 20 Meq Tabcr PO 09/03/22 08:59 20 meq QAM MARISA Administration Telmisartan 40 mg 08/04/22 09:00 08/06/22 08:57 Telmisartan 40 Mg Tab PO 09/03/22 08:59 40 mg QAM MARISA Administration Tramadol HCl 50 mg 08/03/22 13:58 08/06/22 07:49 Tramadol Hcl 50 Mg Tablet PO 09/02/22 13:57 50 mg Q4H PRN Administration Pain (4,5,6+) Past Medical History Medical History Anemia Anemia Aneurysm of infrarenal abdominal aorta 04/18/2022 - 7cm x 6.7 cm Atrial fibrillation dx 7 yrs ago Atrial fibrillation Benign localized prostatic hyperplasia with lower urinary tract symptoms (LUTS) BPH (benign prostatic hyperplasia) Carotid artery stenosis CKD (chronic kidney disease) CKD (chronic kidney disease) COPD (chronic obstructive pulmonary disease) Dementia Erectile dysfunction Erectile dysfunction GERD (gastroesophageal reflux disease) Hearing loss History of tobacco use Hypertension Hypertension Implantable loop recorder present dr jacobson - 3 yrs ago Insomnia Neutrophilic leukocytosis Nocturnal hypoxia o2 2l at hs Osteoarthritis Syncopal episodes summer 2020 Past Family History Family History Other Coronary heart disease Diabetes Past Surgical History Surgical History History of left hip replacement History of right hip replacement Hx of appendectomy Hx of colonoscopy S/P AAA repair using bifurcation graft S/P endovascular aneurysm repair Social History Smoking Status: Former smoker tobacco type: cigarettes Smoking cigarettes per day: 1pack Do You Dip or Chew Tobacco: No Smoking End Date: 2016 Hx Alcohol Use: No Hx Substance Use: No substance use type: does not use Physical Exam Vital Signs Last Vital Signs Temp 98.4 F 08/06/22 07:47 Pulse 78 08/06/22 08:56 Resp 16 08/06/22 08:56 BP 158/80 H 08/06/22 07:47 Pulse Ox 92 08/06/22 07:47 O2 Del Method 08/06/22 07:50 O2 Flow Rate 2 08/05/22 07:34 Testing Laboratory Results 08/06/22 06:15 08/06/22 06:15 PT 13.0 Seconds (9.0-12.0) H 08/06/22 06:15 INR 1.2 (0.9-1.1) H 08/06/22 06:15 APTT 29.1 Seconds (21.0-31.0) 08/03/22 12:19 08/05/22 06:52 Aerobic Blood Culture - Preliminary Blood No growth in Aerobic bottle after 24 hours. 08/05/22 06:44 Aerobic Blood Culture - Preliminary Blood No growth in Aerobic bottle after 24 hours. Anaerobic Blood Culture - Preliminary No growth in Anaerobic bottle after 24 hours. 08/03/22 16:51 Aerobic Blood Culture - Preliminary Blood No growth in Aerobic bottle after 48 hours. Anaerobic Blood Culture - Final 08/03/22 16:49 Aerobic Blood Culture - Preliminary Blood No growth in Aerobic bottle after 48 hours. Anaerobic Blood Culture - Preliminary No growth in Anaerobic bottle after 48 hours. Electrocardiogram Date: 08/04/22 Poor data quality, interpretation may be adversely affected Sinus rhythm with frequent Premature ventricular complexes in a pattern of bigeminy, rate 81 bpm Left anterior fascicular block Incomplete right bundle branch block Septal infarct (cited on or before 20-APR-2022) Abnormal ECG When compared with ECG of 26-APR-2022 03:19, Premature ventricular complexes are now Present Confirmed by Zia Mendoza ([id number]) on 08/04/2022 1:27:33 PM Chest X-Ray Date: 04/26/22 Findings: + NAD Other Testing Carotid duplex 03/29/22 R ICA 50-69% stenosis L ICA < 50% stenosis Loop recorder report 02/22/22 [employer] PVCs presenting rhythm NSR PFTs 12/26/21 Adequate test Mod obstruction Insignificant bronchodilator response Mod COPD with emphysema
--- NOTE | 2022-08-06 10:57 | Consultation ---
Date of Consultation August 06, 2022 Assessment & Plan (1) Ischemia of toe: Pt with ischemic R great toe extending to MTP/bunion. Likely not salvageable. toes 2&3 may still be salvageable. Pt has significant PAD on US, but appears mostly infrapopliteal. Pt discussed with Dr Brody. Recommends RLE angio in OR tomorrow. Procedure, risks, benefits, and alternatives were discussed with pt at Dr Brody's request. Pt expresses understanding and agreement to proceed. was present for this discussion as well. Pt can proceed with podiatry surgical intervention today, if recommended by Dr Ventura. History of Present Illness Reason for Consultation: RLE ischemia Attending Physician: Ian Donovan History of Present Illness 82 yo m with hx of a fib, BPH, GERD, HTN, spinal stenosis, COPD, anemia, mild dementia, IPMN, carotid stenosis, AAA s/p EVAR 03/2022, admitted with pain and discoloration of R great toe for past 1 week. Pt known to Dr Brody for EVAR and followed regularly. Pt states he had a procedure on his great toenail by podiatry on 07/24, then began to develop pain and discoloration a few days later. Denies NICHOLS, fever, chest pain, SOB, abd pain, N/V, rest pain, prior nonhealing wounds. Does not walk fast or far enough to claudicate. Imaging demonstrates PAD, worst in infrapop arteries. Allergies Allergy/AdvReac Type Severity Reaction Status Date / Time No Known Allergies Allergy Unverified 08/03/22 16:10 Home Medications Medication Instructions Recorded Confirmed Type Oxygen Home #2 L 12/08/19 07/23/22 Rx nebulizers #1 ea 09/07/20 07/23/22 Rx aflibercept 2 mg/0.05 mL 0 mg intravitreal UD 06/03/21 08/03/22 History intravitreal solution for injection (Eylea) famotidine 20 mg tablet (Pepcid) 20 mg PO HS 06/03/21 08/03/22 History peg 400-propylene glycol (PF) 0.4 1 drp OPB BID 06/03/21 08/03/22 History %-0.3 % eye drops in a dropperette (Systane (PF)) Flutter Valve #1 ea 12/29/21 07/17/22 Rx albuterol sulfate 90 mcg/actuation 2 inh inhalation Q4H PRN shortness 12/29/21 08/03/22 Rx aerosol inhaler (Ventolin HFA) of breath #8.5 grams budesonide 160 mcg-glycopyr 9 2 inh inhalation BID COPD #10.7 12/29/21 08/03/22 Rx mcg-formot 4.8 mcg/actuation HFA grams inhaler (Breztri Aerosphere) magnesium oxide 400 mg PO QAM #0 caps 01/16/22 08/03/22 History epinephrine 0.3 mg/0.3 mL 0.3 mg IM UD PRN bronchodilation 04/20/22 08/03/22 History injection, auto-injector (EpiPen 2-Marco Antonio) pantoprazole 40 mg tablet,delayed 40 mg PO QAM 04/20/22 08/03/22 History release (Protonix) potassium chloride 20 mEq 20 meq PO QAM 04/20/22 08/03/22 History tablet,extended release [id number] 1 tab PO DAILY 04/24/22 08/03/22 History tablet (Multivitamin 50 Plus tablet) telmisartan 40 mg tablet (Micardis) 40 mg PO QAM #90 tabs 05/28/22 08/03/22 Rx montelukast 10 mg tablet 10 mg PO HS #90 tabs 06/05/22 08/03/22 Rx (Singulair) metoprolol succinate 50 mg 50 mg PO QAM #90 tabs 06/12/22 08/03/22 Rx tablet,extended release 24 hr (Toprol XL) celecoxib 200 mg capsule (Celebrex) 200 mg PO QAM #90 caps 06/15/22 08/03/22 Rx calcium carbonate 600 mg calcium 600 mg PO DAILY 06/25/22 08/03/22 History (1,500 mg) tablet (Calcium) finasteride 5 mg tablet 5 mg PO DAILY #90 tabs 06/28/22 08/03/22 Rx levalbuterol HCl 1.25 mg/3 mL 1.25 mg (3 mL) inhalation Q4 PRN 06/29/22 08/03/22 Rx solution for nebulization (Xopenex) Shortness Of Breath #180 mL clindamycin HCl 150 mg capsule 150 mg PO BID 08/03/22 08/03/22 History diclofenac sodium 1 % topical gel 2 g topical QID PRN Pain 08/03/22 08/03/22 History docusate sodium 100 mg capsule 100 mg PO BID PRN Constipation 08/03/22 08/03/22 History (Colace) Patient History Medical History Anemia Anemia Aneurysm of infrarenal abdominal aorta 04/18/2022 - 7cm x 6.7 cm Atrial fibrillation dx 7 yrs ago Atrial fibrillation Benign localized prostatic hyperplasia with lower urinary tract symptoms (LUTS) BPH (benign prostatic hyperplasia) Carotid artery stenosis CKD (chronic kidney disease) CKD (chronic kidney disease) COPD (chronic obstructive pulmonary disease) Dementia Erectile dysfunction Erectile dysfunction GERD (gastroesophageal reflux disease) Hearing loss History of tobacco use Hypertension Hypertension Implantable loop recorder present dr jacobson - 3 yrs ago Insomnia Neutrophilic leukocytosis Nocturnal hypoxia o2 2l at hs Osteoarthritis Syncopal episodes summer 2020 Surgical History History of left hip replacement History of right hip replacement Hx of appendectomy Hx of colonoscopy S/P AAA repair using bifurcation graft S/P endovascular aneurysm repair Family History Other Coronary heart disease Diabetes Social History Smoking Status: Former smoker Tobacco Type: Cigarettes Age Started Using Tobacco: 18; packs per day: 1; Cigarettes Per Day: 1pack; Smoking End Date: 2016; Second Hand Exposure: No; Do You Dip or Chew Tobacco: No; Tobacco Cessation Education Requested by Patient: No Hx Alcohol Use: No Hx Substance Use: No Preferred Language: Danish Communication Ability: Effective Visual Impairment: No Limitations 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 Discharge rank E4. No combat injury Feels Safe at Home: Yes Safety Concerns: Feels Safe At This Time Dental Care, Regularly: No Seatbelt Use: always Sunscreen Use: Yes Assistive Devices: None Assistive Devices Comment: 2L NC at night Review of Systems Review of Systems: All systems reviewed & are unremarkable except as noted in HPI & below Physical Exam Constitutional: WD/WN, vitals as above + thin, cooperative and comfortable; not in distress ENMT: Ears: no hearing impairment Neck: trachea midline Respiratory: normal respiratory effort, lungs clear to auscultation Auscultation: + diminished lung sounds Cardiovascular: Rate/Rhythm: + irregularly irregular Vessels: femoral pulses present, posterior tibial pulses present (+1 LLE, nonpalpable RLE), dorsalis pedis pulses present (+1 LLE, nonpalpable RLE) and radial pulses present; + abnormal peripheral pulses Extremities: + abnormal capillary refill (R great toe and MTP no refill. Toes 2&3 delayed cap refill) Gastrointestinal (Abdomen): Inspection/Auscultation: abdomen normal to inspe ction and normal bowel sounds Percussion/Palpation: abdomen soft; abdomen nontender Musculoskeletal: Extremities: strength 5/5 throughout Skin: no rashes, warm and dry + mottling (R great toe and MTP) Neurologic: moves all extremities and awake; no focal motor deficits and not confused Psychiatric: A+Ox3, euthymic affect Results & Data ([facility]) Vital Signs (Past 12 Hours) Vital Signs Temp Pulse Pulse Resp BP Pulse Ox O2 Del Method 08/06/22 07:50 Room Air 08/06/22 08:56 78 16 08/06/22 07:47 36.9 C 59 L 11 L 158/80 H 92 Room Air
[2022-08-06] MEDS ORDERED: BUPIVACAINE 0.5 % 5 MG/1 ML MPF 30ML VIAL ONE (16:23)
[2022-08-06] MEDS ORDERED: fentaNYL citrate 100 MCG/2 ML VIAL ONE (16:36)
[2022-08-06] MEDS ORDERED: ATROPINE SULFATE 0.1 MG/ML 10ML SYR IV PRN (17:06)
[2022-08-06] MEDS ORDERED: fentaNYL citrate 100 MCG/2 ML VIAL IV PRN (17:06)
[2022-08-06] MEDS ORDERED: ONDANSETRON INJ 2 MG/ML 2 ML VIAL IV PRN (17:06)
[2022-08-06] MEDS ORDERED: MEPERIDINE HCL 25 MG/ML CARP/VIAL IV PRN (17:06)
[2022-08-06] MEDS ORDERED: ALBUT/IPRATROP 3MG/0.5MG NEB 3 ML VIAL INH PRN (17:06)
[2022-08-06] MEDS ORDERED: ePHEDrine sulfate 50 MG/ML AMP IV PRN (17:06)
--- NOTE | 2022-08-06 17:13 | History & Physical Bridge Note ---
Date of Service August 06, 2022 History & Physical Bridge Note I discussed procedure removal of nonviable tissue right foot, removal of great toe right foot, all other procedures as indicated to right foot. I have examined the patient, reviewed the History & Physical and in the interval since the performance of the History & Physical I have noted the following changes of clinical significance: no changes noted
[2022-08-06] MEDS ORDERED: PROPOFOL IV EMULSION 10 MG/ML 20 ML VIAL IV ONE (17:49)
[2022-08-06] MEDS ORDERED: ONDANSETRON INJ 2 MG/ML 2 ML VIAL ONE (17:49)
--- NOTE | 2022-08-06 18:36 | Post Operative Brief Note ---
Immediate Post Op Note v1 Date of Surgery August 06, 2022 Pre & Post Diagnosis Operation Date: 08/06/22 09:30 Pre-Op Diagnosis: Ischemic ulcer of right foot Post-Op Diagnosis: Ischemic ulcer of right foot Operation Date: 08/07/22 08:40 <No data on this case meets the specified criteria> I identified the patient and participated in the time-out.: Yes Procedure Operation Date: 08/06/22 09:30 Actual Procedures p Right Great Toe Amputation and Excision of nonviable tissue(Right) - Papito Ventura DPM, MS Operation Date: 08/07/22 08:40 <No data on this case meets the specified criteria> Surgeon Papito Ventura DPM, MS Wireless Technician none Estimated Blood Loss 0 Findings Consistent with Post-Op Diagnosis none
--- NOTE | 2022-08-06 18:58 | Anesthesiology Progress Note ---
Date of Service August 06, 2022 Anesthesia Post Procedure Vital Signs Vital Signs: Temp Pulse Pulse Resp BP BP Pulse Ox 08/06/22 18:40 36.4 C L 73 22 115/60 95 08/06/22 18:30 72 20 104/65 100 08/06/22 18:20 36.8 C 74 24 112/60 98 08/06/22 16:30 36.9 C 76 20 131/62 94 08/06/22 14:52 36.7 C 75 16 150/72 H 92 08/06/22 07:50 08/06/22 08:56 78 16 08/06/22 07:47 36.9 C 59 L 11 L 158/80 H 92 08/05/22 22:12 36.9 C 75 19 125/71 94 O2 Del Method O2 Flow Rate 08/06/22 18:40 Room Air 08/06/22 18:30 Oxymask 6 08/06/22 18:20 Oxymask 6 08/06/22 16:30 Room Air 08/06/22 14:52 Room Air 08/06/22 07:50 Room Air 08/06/22 08:56 08/06/22 07:47 Room Air 08/05/22 22:12 Room Air Pain Intensity Right Great Toe: Pain Intensity: 8 Bilateral Head: Pain Intensity: 4 Transfer of Care Handoff Completed per policy Notes Mental Status: alert / awake / arousable Patient Amnestic to Procedure: Yes Nausea / Vomiting: adequately controlled Pain: adequately controlled Airway Patency, RR, SpO2: stable & adequate BP & HR: stable & adequate Hydration State: stable & adequate Anesthetic Complications: no major complications apparent and Pt Satisfied with anesthetic care
[2022-08-06] MEDS: MELATONIN 3 MG TAB PO SCH (20:37)
[2022-08-06] MEDS: MONTELUKAST SODIUM 10 MG TABLET PO SCH (20:37)
[2022-08-06] MEDS: FAMOTIDINE 20 MG TAB PO SCH (20:37)
--- NOTE | 2022-08-06 20:56 | Operative Report ---
Post Operative Report Pre & Post Diagnosis Operation Date: 08/06/22 09:30 Pre-Op Diagnosis: Ischemic ulcer of right foot Post-Op Diagnosis: Ischemic ulcer of right foot Operation Date: 08/07/22 08:40 <No data on this case meets the specified criteria> I identified the patient and participated in the time-out.: Yes Procedure Operation Date: 08/06/22 09:30 Actual Procedures p Right Great Toe Amputation and Excision of nonviable tissue(Right) - Papito Ventura DPM, MS Operation Date: 08/07/22 08:40 <No data on this case meets the specified criteria> Surgeon Papito Ventura DPM, MS Chair Trimmer none Estimated Blood Loss 0 Findings Consistent with Post-Op Diagnosis None Specimens RIght hallux Description of Procedure History of present illness: Patient is a pleasant 82 year old male who is seen for removal of an ischemic, necrotic, Right great toe. Patient was initially treated at outside clinic where he underwent a nail procedure which failed to heal. Recent vascular work up confirms poor perfusion and intervention is planned for follow. I reviewed procedure in detail with Patient and . I did discuss possible wound care needed post operatively as well as possible need for more proximal amputation. All questions answered. Discussed procedure in detail and postoperative recovery. All potential risks, benefits, complications, alternatives, rehab, potential for incomplete relief of symptoms, need for further surgery, DVT, PE, , persistent pain, swelling, scarring, weakness, neurovascular, wound complications, and potential for amputations were discussed with patient. Unwanted outcomes such as, but not limited to were reviewed including under correction, overcorrection, return of deformity, infection. All questions were answered. Patient has decided to proceed with procedure as indicated. Preoperative diagnosis: Right necrotic ischemic hallux Postoperative diagnosis: same Name of operation: Amputation right first ray Surgeon Dr. Ventura Chair Trimmer: None Anesthesia: local with monitored anesthesia care Hemostasis: None Estimated blood loss: minimal Procedure in detail: Under mild sedation the patient was brought in the operating room placed on the operating table in supine position. A pneumatic ankle tourniquet was then placed about the patient's right ankle. Following IV sedation local anesthesia was obtained about the right utilizing 20 cc of 0.5% Marcaine plain. The foot was then prepped scrubbed and draped in usual aseptic manner Attention was then directed to the right hallux where an ischemic, necrotic hallux is noted. Normal capillary refill present at the first metatarsal phalangeal joint. A fishmouth incision was created utilizing a sharp, sterile, #15 blade at the first metatarsal phalangeal joint. The incision which was deepened through subcutaneous tissue using sharp blunt dissection. Care was taken to identify and retract all vital neurovascular structures. All bleeders were ligated and cauterized necessary. An oscillating saw was used to remove the first metatarsal head. One Liter of lactate ringer was utilized to flush the incision site under low flow. The skin was then primarily closed utilizing -0 nylon in horizontal suture mattress techniques as well as simple suture closure. Upon completion of the procedure the incision was dressed with Adaptic followed by sterile dressing consisting of 4 x 4's, Arnol, Kerlix, ABD. The Patient tolerated the procedure and anesthesia well. He was transferred to the recovery room with vital signs stable. Following postoperative monitoring the patient re-admitted to the floor resuming all pre-operative orders. Contact Dr. Ventura for all postoperative care or if any problems arise . I attest to the content of the Intraoperative Record and any orders documented therein. Any exceptions are noted below.
[2022-08-06] MEDS ORDERED: VANCOMYCIN HCL 750 MG in SODIUM CHLORIDE 0.9% 250 ML IV SCH (21:00)
--- NOTE | 2022-08-06 21:09 | Hospitalist Progress Note ---
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 -held vanco -continue zosyn -continue pain control -Monitor labs and vitals -Continue Incentive spirometry -Changed code status to DNR/DNI patient and aware this status changes when has surgery -Continue heart healthy diet -PT/OT order placed (2) Dementia: Plan: -Baseline is alert and oriented to person, place, month, year, and president, currently at baseline -Not on medication (3) COPD (chronic obstructive pulmonary disease): Plan: -Stable on RA -Contique scheduled breathing treatments -Incentive spirometry while admitted (4) Atrial fibrillation: Plan: -HR currently controlled -Not on anticoagulation due to multiple GI ulcers and GI bleeds -Continue metoprolol (5) Nocturnal hypoxia: Plan: -HS 2L NC ordered (6) Hypertension: Plan: -Continue telmisartan 40mg daily and Toprol XL 50 mg daily (7) GERD (gastroesophageal reflux disease): Plan: -Continue protonix and famotidine (8) BPH (benign prostatic hyperplasia): Plan: -Continue finasteride Admission and Anticipated Discharge Date Admission Date: August 03, 2022 Subjective Patient seen after the procedure. Patient is sleeepy, presents no new symptoms Review of Systems Review of Systems: All systems reviewed & are unremarkable except as noted in HPI & below Physical Exam Physical Exam: General: In no acute distress, stated age, well-nourished, good hygiene HEENT: Normocephalic, atraumatic, no scleral icterus, pupils around round, symmetrical, and reactive to light, moist mucus membranes, tracheamidline, no thyromegaly Chest/Pulm: No respiratory distress, symmetrical chest expansion, clear breath sounds throughout Cardiac: RRR, no murmurs noted Abdomen: Negative for ascites and bruising, normoactive bowel sounds, soft, non- tender to palpation throughout Musculoskeletal: S/p amputation Extremities: Radial, dorsalis pedis, and posterior tibial pulses are intact and symmetrical, +1 pitting edema in the LLE, +2 pitting edema in the RLE Skin: Warm, dry, as described above Neuro: Alert and oriented to person, place, month, year, and president, no focal defects, CN II-XII tested and intact, finger to nose test negative, no tremors noted Psych: No acute distress, calm and cooperative during the exam Results & Data Results & Data ([facility]) Vital Signs (Past 12 Hours) Vital Signs Temp Pulse Pulse Resp BP Pulse Ox O2 Del Method 08/06/22 20:30 36.5 C 82 18 120/65 95 08/06/22 19:48 36.5 C 76 18 146/67 H 91 08/06/22 19:25 36.5 C 71 18 139/57 L 91 08/06/22 18:40 36.4 C L 73 22 115/60 95 Room Air 08/06/22 18:30 72 20 104/65 100 Oxymask 08/06/22 18:20 36.8 C 74 24 112/60 98 Oxymask 08/06/22 16:30 36.9 C 76 20 131/62 94 Room Air 08/06/22 14:52 36.7 C 75 16 150/72 H 92 Room Air O2 Flow Rate 08/06/22 20:30 08/06/22 19:48 08/06/22 19:25 08/06/22 18:40 08/06/22 18:30 6 08/06/22 18:20 6 08/06/22 16:30 08/06/22 14:52 PG Care Time/CCT Total # of Minutes Spent Total Time Spent with Patient: Total time spent is greater than 50% in coordination of care (as documented) at patient's floor/unit and/or counseling patient: Coding Level of Care Code 15229 Subseq Hosp Care Lvl 2 Diagnoses Ischemic ulcer of right foot L97.519 Dementia F03.90 COPD (chronic obstructive pulmonary disease) J44.9 Atrial fibrillation I48.91 Nocturnal hypoxia G47.34 Hypertension I10 Hypertension type: essential hypertension GERD (gastroesophageal reflux disease) K21.9 BPH (benign prostatic hyperplasia) N40.0 Time Spent (min) 25 (1) Hypertension Hypertension type: essential hypertension Qualified Code(s): I10 - Essential (primary) hypertension
[2022-08-07] MEDS: PIPERACILLIN/TAZOBACTAM 3.375 GM in DEXTROSE 5% 100 ML IV SCH ×3 (04:34→20:12)
[2022-08-07] MEDS: traMADol HCL 50 MG TABLET PO PRN ×3 (06:37→20:12)
[2022-08-07] MEDS ORDERED: MoRPHine SULFATE 2 MG/ML CARP IV STA (07:25)
--- NOTE | 2022-08-07 07:45 | Hospitalist Progress Note ---
Date of Service August 07, 2022 Assessment & Plan (1) Ischemic ulcer of right foot: Plan: -Patient is currently afebrile, hemodynamically stable, stable on RA 100% and non-toxic appearing -Sent to the ED by podiatry due to concerns for ischemic great right toe and infection in right foot -RLE arterial doppler as stated above, no arterial occlusion -Xray right foot with no osteomyelitis -Vascular surgery and podiatry consults placed -Podiatry performed right 1st hallux amputation and excision of nonviable tissue yesterday -Vascular planning on right leg angiogram with intervention today -Continue with Zosyn -Vancomycin was stopped due to low trough -Blood cultures no growth x 2 different sites on 08/03 and 08/05 -Pain control with Tylenol and tramadol for now, may need to escalate, would avoid NSAIDs with his history of GI ulcers and bleeds -Had tramadol and also IV 1mg Morphine x 1 this AM - Gave dose of Tylenol and Celebrex 200mg for headache 08/05 - Headache resolved with Tyleonol and Celebrex -Monitor labs and vitals -Continue Incentive spirometry -Changed code status to DNR/DNI patient and aware this status changes when has surgery -Currently NPO for surgery -PT/OT order placed (2) Dementia: Plan: -Baseline is alert and oriented to person, place, month, year, and president, currently at baseline -Not on medication (3) COPD (chronic obstructive pulmonary disease): Plan: -Stable on RA -Contique scheduled breathing treatments -Incentive spirometry while admitted (4) Atrial fibrillation: Plan: -HR currently controlled -Not on anticoagulation due to multiple GI ulcers and GI bleeds -Continue metoprolol (5) Nocturnal hypoxia: Plan: -HS 2L NC ordered (6) Hypertension: Plan: -Continue telmisartan 40mg daily and Toprol XL 50 mg daily (7) GERD (gastroesophageal reflux disease): Plan: -Continue protonix and famotidine (8) BPH (benign prostatic hyperplasia): Plan: -Continue finasteride Plan The patient was discussed with Dr. Donovan Admission and Anticipated Discharge Date Admission Date: August 03, 2022 Subjective Patient seen at bedside. Patient had amputation of right first hallux yesterday and this AM was complaining of increased pain. Patient was given 50mg of tramadol early this AM and after 1 hour has had no relief in his pain at the amputation site. Patient was ordered 1mg Morphine IV Stat dose x 1 at 0730. Patient tells me that the IV Morphine has helped with his right foot pain. He is scheduled for OR later today with Dr Brody for right leg angiogram with intervention. He denies any chest pain, SOB, abdominal pain, nausea or vomiting. He is NPO for the above procedure. Review of Systems Review of Systems: All ROS negative unless stated above in the history Physical Exam Constitutional: WD/WN, vitals as above (NAD awake, pleasant and talkative) Eyes: PERRL, conjunctivae normal, anicteric sclerae Respiratory: normal respiratory effort, lungs clear to auscultation Cardiovascular: Rate/Rhythm: regular rate and regular rhythm Extremities: + edema (+1 pitting edema right ankle) Dorsalis pedis pulses intact bilaterally Gastrointestinal (Abdomen): normal bowel sounds, soft, nontender, no hepatosplenomegaly Skin: Surgical dressing on right foot. 2nd and 3rd toes visible with intact sensation Surgical dressing clean Neurologic: moves all extremities and awake Speech / Cognition: normal speech and normal cognition Psychiatric: A+Ox3, euthymic affect Results & Data Results & Data ([facility]) Vital Signs (Past 12 Hours) Vital Signs Temp Pulse Resp BP Pulse Ox O2 Del Method 08/07/22 02:15 37.0 C 87 18 135/75 91 08/06/22 22:00 36.7 C 79 18 107/65 94 Room Air 08/06/22 21:00 36.5 C 82 18 120/65 95 08/06/22 20:00 36.5 C 76 18 146/67 H 91 PG Care Time/CCT Total # of Minutes Spent Total Time Spent with Patient: Total time spent is greater than 50% in coordination of care (as documented) at patient's floor/unit and/or counseling patient: Coding [place] [address] Subseq Hosp Care Lvl 3 Patient Type Established Medical Decision Making High Complexity Diagnoses Ischemic ulcer of right foot L97.519 Dementia F03.90 COPD (chronic obstructive pulmonary disease) J44.9 Atrial fibrillation I48.91 Nocturnal hypoxia G47.34 Hypertension I10 Hypertension type: essential hypertension GERD (gastroesophageal reflux disease) K21.9 BPH (benign prostatic hyperplasia) N40.0 Time Spent (min) 30 (1) Hypertension Hypertension type: essential hypertension Qualified Code(s): I10 - Essential (primary) hypertension
[2022-08-07] MEDS: METOPROLOL SUCC 50MG EXT REL TAB PO SCH (08:05)
[2022-08-07] MEDS: PANTOprazole 40 MG TAB PO SCH (08:06)
[2022-08-07] MEDS: BUDESONIDE/GLYCOPYR/FORMOTEROL INHALER INH SCH ×2 (08:06→20:15)
--- NOTE | 2022-08-07 09:54 | History & Physical Bridge Note ---
Date of Service August 07, 2022 History & Physical Bridge Note Patient for a right leg angio with possible intervention. I have discussed the risks options and benefits of the procedure with the patient. The patient understands the risks options and benefits and agrees to the procedure. I have examined the patient, reviewed the History & Physical and in the interval since the performance of the History & Physical I have noted the following changes of clinical significance: no changes noted
[2022-08-07] MEDS ORDERED: SODIUM CHLORIDE 0.9% 1000ML 1,000 ML IV SCH ×2 (10:00→12:41)
--- NOTE | 2022-08-07 10:46 | Pre Anesthesia Assessment ---
Date of Service August 07, 2022 Pre Sedation Assessment Vital Signs Temp Pulse Pulse Resp BP Pulse Ox O2 Del Method 08/07/22 10:05 37.1 C 91 H 20 159/85 H 90 Room Air 08/07/22 07:20 Room Air 08/07/22 07:48 37.5 C 96 H 22 161/76 H 90 Room Air 08/07/22 02:15 37.0 C 87 18 135/75 91 08/06/22 19:00 36.5 C 70 18 118/65 94 Room Air 08/06/22 22:00 36.7 C 79 18 107/65 94 Room Air 08/06/22 21:00 36.5 C 82 18 120/65 95 08/06/22 20:00 36.5 C 76 18 146/67 H 91 08/06/22 19:25 36.5 C 71 18 139/57 L 91 08/06/22 18:40 36.4 C L 73 22 115/60 95 Room Air 08/06/22 18:30 72 20 104/65 100 Oxymask 08/06/22 18:20 36.8 C 74 24 112/60 98 Oxymask 08/06/22 16:30 36.9 C 76 20 131/62 94 Room Air 08/06/22 14:52 36.7 C 75 16 150/72 H 92 Room Air O2 Flow Rate 08/07/22 10:05 08/07/22 07:20 08/07/22 07:48 08/07/22 02:15 08/06/22 19:00 08/06/22 22:00 08/06/22 21:00 08/06/22 20:00 08/06/22 19:25 08/06/22 18:40 08/06/22 18:30 6 08/06/22 18:20 6 08/06/22 16:30 08/06/22 14:52 Cardiovascular RRR, no murmur, no edema Respiratory normal respiratory effort, lungs clear to auscultation Pre-Sedation Airway Assessment Smoking Status: Former smoker Hx Sleep Apnea: No Short, Thick Neck: No Thyromental Distance: > or= 3.5 Finger Breadths Oral Cavity: + WNL Mallampati Class: II ASA: ASA3 NPO Status Date of Last Intake of Fluids: 08/06/22 Time of Last Intake of Fluids: 23:00 Last Oral Intake of Fluids Comment: sip with meds this am, very little Date of Last Intake of Solid Food: 08/06/22 Time of Last Intake of Solid Foods: 21:00 Procedure Planning Contraindications for Sedation: none Current Medications Reviewed: Yes Notes The planned sedation has been discussed with the patient. Informed Consent was obtained. I have identified the patient, determined the appropriateness of sedation and have assessed the patient immediately prior to the procedure. All medicine(s) and interventions are by my order.
[2022-08-07] MEDS ORDERED: fentaNYL citrate 100 MCG/2 ML VIAL ONE ×2 (10:56→11:19)
[2022-08-07] MEDS ORDERED: MIDAZOLAM HCL 1 MG/ML 2ML VIAL ONE (10:56)
[2022-08-07] MEDS ORDERED: VISIPAQUE IV PRN (12:11)
[2022-08-07] MEDS ORDERED: LIDOCAINE 1% LOCAL 20 ML VIAL INJ ONE (12:11)
--- NOTE | 2022-08-07 12:16 | Post Operative Brief Note ---
Immediate Post Op Note v1 Date of Surgery August 07, 2022 Pre & Post Diagnosis Operation Date: 08/06/22 09:30 Pre-Op Diagnosis: Ischemic ulcer of right foot Post-Op Diagnosis: Ischemic ulcer of right foot Operation Date: 08/07/22 08:40 Pre-Op Diagnosis: Ischemia Foot, Non Healing Amputation Site Post-Op Diagnosis: Ischemia Foot, Non Healing Amputation Site I identified the patient and participated in the time-out.: Yes Procedure Operation Date: 08/06/22 09:30 Actual Procedures p Right Great Toe Amputation and Excision of nonviable tissue(Right) - Papito Ventura DPM, MS Operation Date: 08/07/22 08:40 Actual Procedures p Right Leg Angiogram, Ultrasound Localization of Right femoral Artery, Intravascular Lithotripsy of Right Tibial Peroneal Trunk and Superficial Femoral Arteries, Mechanical Closure of Right Femoral Artery, Moderate Sedation 1058- 1212(Right) - Gabriel Brody MD Surgeon Gabriel Brody MD Office Administration MD Kadie Estimated Blood Loss 15 Findings Consistent with Post-Op Diagnosis Anesthesia Type RN Sedation Complications none Disposition Accompanied Patient To Recovery: No Disposition: Recovery Room
--- NOTE | 2022-08-07 12:21 | Procedure Note ---
Angiogram Post Procedure Fluoroscopy Time (minutes): 12.8 Conscious Sedation Time (minutes): 74 Radiation (mGy): 84 Contrast: 60 Post Operative Report Pre & Post Diagnosis Operation Date: 08/06/22 09:30 Pre-Op Diagnosis: Ischemic ulcer of right foot Post-Op Diagnosis: Ischemic ulcer of right foot Operation Date: 08/07/22 08:40 Pre-Op Diagnosis: Ischemia Foot, Non Healing Amputation Site Post-Op Diagnosis: Ischemia Foot, Non Healing Amputation Site I identified the patient and participated in the time-out.: Yes Procedure Operation Date: 08/06/22 09:30 Actual Procedures p Right Great Toe Amputation and Excision of nonviable tissue(Right) - Papito Ventura, DPM, MS Operation Date: 08/07/22 08:40 Actual Procedures p Right Leg Angiogram, Ultrasound Localization of Right femoral Artery, Intravascular Lithotripsy of Right Tibial Peroneal Trunk and Superficial Femoral Arteries, Mechanical Closure of Right Femoral Artery, Moderate Sedation 1058- 1212(Right) - Gabriel Brody MD Surgeon Gabriel Brody MD Manager R D Kalyan Bailon MD Estimated Blood Loss 15 Findings See Below Specimens None Anesthesia Type RN Sedation Complications none Disposition Accompanied Patient To Recovery: No Disposition: Recovery Room Indications Rest pain and non-healing wounds, s/p right great toe amputation I have discussed the risks options and benefits of the procedure with the patient. The patient understands the risks options and benefits and agrees to the procedure. Description of Procedure The patient was brought to the Art Supervisor. The patient was identified and a surgical timeout was performed verifying procedure, patient, and any necessary equipment and allergies. The patient was monitored with EKG as well as pulse oximetry during the procedure. The patient was given 3 mg of Versed and 125 mcg of fentanyl for sedation during the entirety of the procedure. The patient's bilateral groins were prepped and draped in a standard sterile fashion. Ultrasound guidance was utilized to identify the right common femoral artery as well as its bifurcation which were patent. 4 to 5 mL of 1% lidocaine was used to provide local anesthesia to the right groin. A 21-gauge micropuncture needle was used to access the right common femoral artery in an antegrade fashion. A floppy tipped 018 wire was inserted into the artery and the needle was exchanged for a micropuncture sheath. The micropuncture sheath was utilized to perform a right lower extremity angiogram which verified the access was just above the right common femoral bifurcation and the sheath was initially in the profunda artery. A J-tipped wire was utilized to remove the sheath from the profunda artery and cannulate the SFA artery. Angiograms of the right lower extremity were performed which demonstrated significant calcification of the right SFA however no occlusions were noted, the right TP trunk was also significantly diseased and the right posterior tibial artery was the main runoff for the patient. The AT was noted to be occluded and the peroneal artery was of small caliber. The micropuncture sheath was then exchanged for a 6 [place] sheath. a V 14 wire was inserted into the sheath and placed down into the right PT artery. A 4 x 60 shockwave balloon was then placed in the right PT and TP arteries. Shockwave lithotripsy was performed of the entire TP and distal BK popliteal arteries. Angiography demonstrated that the lesions were significantly improved following lithotripsy without dissection. A 6 x 60 shockwave balloon was then placed into the distal SFA and. Shockwave lithotripsy was performed of the distal SFA from Lorenzo's canal to approximately mid SFA. Repeat angiography demonstrated significant improvement of the SFA lesions with no signs of dissection. Angiography of the calf and foot was then performed which demonstrated patency of the PT past the level of the ankle. The wire access was then removed. A Star closure device was utilized to obtain hemostasis of the right LEG BREAKER antegrade access. A sterile dressing was then placed over the puncture site. The patient was taken to the PACU for recovery. The patient at the end of the case had a PT signal, no signs of hematoma at the access site. The patient left the operation room in satisfactory condition and tolerated the procedure well. All needle and sponge counts were correct at the end of the procedure. I, Dr. Brody was present and scrubbed for the entire procedure. I attest to the content of the Intraoperative Record and any orders documented therein. Any exceptions are noted below.
[2022-08-07 13:07] LABS: Hematocrit (blood only) 32.4 % (40.1-51.0); Hemoglobin 10.4 g/dl (14.0-18.0); Mean Corpuscular Hemoglobin 30.2 pg (25.0-34.0); Mean Corpuscular Hgb Conc 32.1 g/dL (32.0-36.0); Mean Corpuscular Volume 94.2 fL (80.0-100.0); Mean Platelet Volume 9.4 fL (9.4-12.4); Platelet Count 247 K/uL (130-400); RDW Coefficient of Variation 13.4 % (11.5-14.5); RDW Standard Deviation 46.3 fL (36.4-46.3); Red Blood Count 3.44 M/uL (4.63-6.08)
[2022-08-07 13:45] LABS: BUN Creatinine Ratio 10.7 (10-20); Calcium 8.6 mg/dl (8.5-10.1); Creatinine Clr Calc Pharmacy 31.7 ml/min; Est GFR (African American) 45.5 ml/min; Est GFR (Non-African American) 39.3 ml/min; Potassium 4.2 mmol/L (3.5-5.1)
[2022-08-07] MEDS: CeleBREX 200 MG CAP PO SCH (15:29)
[2022-08-07] MEDS: MAGNESIUM OXIDE 400 MG TAB PO SCH (15:30)
[2022-08-07] MEDS: CEROVITE ADV FORMULA TAB PO SCH (15:30)
[2022-08-07] MEDS: CALCIUM CARBONATE 1250MG TAB PO SCH (15:30)
[2022-08-07] MEDS: TELMISARTAN 40 MG TAB PO SCH (15:30)
[2022-08-07] MEDS: FINASTERIDE 5 MG TAB PO SCH (15:30)
[2022-08-07] MEDS: POTASSIUM CHLORIDE CRTAB 20 MEQ TABCR PO SCH (15:30)
[2022-08-07] MEDS: MONTELUKAST SODIUM 10 MG TABLET PO SCH (20:13)
[2022-08-07] MEDS: FAMOTIDINE 20 MG TAB PO SCH (20:13)
[2022-08-07] MEDS: MELATONIN 3 MG TAB PO SCH (20:13)
[2022-08-08] MEDS: PIPERACILLIN/TAZOBACTAM 3.375 GM in DEXTROSE 5% 100 ML IV SCH ×3 (04:59→19:46)
[2022-08-08] MEDS: traMADol HCL 50 MG TABLET PO PRN ×2 (05:52→14:45)
[2022-08-08] MEDS: ACETAMINOPHEN 325 MG TAB PO PRN ×3 (08:13→16:36)
[2022-08-08] MEDS ORDERED: CLOPIDOGREL BISULFATE 300 MG TAB PO STA (08:32)
--- NOTE | 2022-08-08 08:37 | Hospitalist Progress Note ---
Date of Service August 08, 2022 Assessment & Plan (1) Ischemic ulcer of right foot: Plan: -Podiatry performed right 1st hallux amputation and excision of nonviable tissue 08/06 -Vascular performed right leg angiogram with intravascular lithotripsy 08/07 -Continue with Zosyn -Vancomycin was stopped due to low trough -Blood cultures no growth x 2 different sites on 08/03 and 08/05 -Pain control with Tylenol and tramadol -Monitor labs and vitals -Continue Incentive spirometry -tolerating diet -PT/OT are evaluating -Case management also evaluating for possible outpatient placement for rehab (2) Dementia: Plan: -Baseline is alert and oriented to person, place, month, year, and president, currently at baseline -Not on medication (3) COPD (chronic obstructive pulmonary disease): Plan: -Stable on RA with nighttime nasal canula O2 -Contique scheduled breathing treatments -Incentive spirometry while admitted (4) Atrial fibrillation: Plan: -HR currently controlled -Was not on outpatient anticoagulation due to multiple GI bleeds (Vascular ordered Plavix 300 x 1 today then 75 mg daily) -Continue metoprolol (5) Nocturnal hypoxia: Plan: -HS 2L NC ordered (6) Hypertension: Plan: -Continue telmisartan 40mg daily and Toprol XL 50 mg daily (7) GERD (gastroesophageal reflux disease): Plan: -Continue protonix and famotidine (8) BPH (benign prostatic hyperplasia): Plan: -Continue finasteride (9) Osteoarthritis: Plan: - Patient continues on Celebrex 200mg daily Plan The patient was discussed with Dr. Donovan Admission and Anticipated Discharge Date Admission Date: August 03, 2022 Subjective Patient had amputation of right first hallux 08/[address] Ventura. 08/07/22 had right leg Angiogram with intravascular lithotripsy of Right Tibial peroneal trunk and superficial femoral arteries and then mechanical closure of right femoral artery with Dr Brody. Dr Brody started Plavix 300mg STAT dose x 1 today and then 75 mg daily after Patient is sitting up in chair with his leg leg elevated on a step stool and was evaluated by PT/OT earlier He denies any chest pain, SOB, abdominal or groin pain. He states his right foot is feeling much better today. He is complaining again of a frontal headache. He denies any visual changes, photophobia, nausea or vomiting. He also denies any congestion, cough or dyspnea. Reevaluated patient after lunch and he also had a dose of Toradol and Tylenol. He stated that his headache resolved. Review of Systems Review of Systems: All ROS negative unless stated above in the history Physical Exam Constitutional: WD/WN, vitals as above (NAD awake, pleasant and talkative) Eyes: PERRL, conjunctivae normal, anicteric sclerae Neck: trachea midline, no thyromegaly Respiratory: normal respiratory effort, lungs clear to auscultation Cardiovascular: Rate/Rhythm: regular rate and regular rhythm Gastrointestinal (Abdomen): normal bowel sounds, soft, nontender, no hepatosplenomegaly Musculoskeletal: Clean Surgical dressing over right foot. Neurologic: moves all extremities and awake Speech / Cognition: normal speech and normal cognition intact sensation over 2nd and 3rd toes on right foot Dorsalis Pedis pulses +2 symmetric Psychiatric: A+Ox3, euthymic affect Results & Data Results & Data ([facility]) Vital Signs (Past 12 Hours) Vital Signs Temp Pulse Resp BP Pulse Ox O2 Del Method 08/08/22 07:37 37.1 C 77 16 158/74 H 91 Room Air 08/08/22 03:49 37.0 C 69 18 148/73 H 96 08/07/22 21:15 36.9 C 69 18 143/72 H 97 Room Air Laboratory Results Abnormal lab results 08/07/22 08/07/22 08/08/22 Range/Units 12:47 12:47 07:49 WBC 13.10 H (4.8-10.8) K/ul RBC 3.44 L 3.22 L (4.63-6.08) M/uL Hgb 10.4 L 9.7 L (14.0-18.0) g/dl Hct 32.4 L 30.5 L (40.1-51.0) % MCHC 31.8 L (32.0-36.0) g/dL RDW Std Deviation 46.5 H (36.4-46.3) fL Creatinine 1.59 H D (0.6-1.4) mg/dl Glucose 117 H (70-99(Fasting)) mg/dl Calcium (8.5-10.1) mg/dl 08/08/22 Range/Units 07:49 WBC (4.8-10.8) K/ul RBC (4.63-6.08) M/uL Hgb (14.0-18.0) g/dl Hct (40.1-51.0) % MCHC (32.0-36.0) g/dL RDW Std Deviation (36.4-46.3) fL Creatinine (0.6-1.4) mg/dl Glucose 108 H (70-99(Fasting)) mg/dl Calcium 8.3 L (8.5-10.1) mg/dl PG Care Time/CCT Total # of Minutes Spent Total Time Spent with Patient: Total time spent is greater than 50% in coordination of care (as documented) at patient's floor/unit and/or counseling patient: Coding Level of Care Code 79053 Subseq Hosp Care Lvl 3 Diagnoses Ischemic ulcer of right foot L97.519 Dementia F03.90 COPD (chronic obstructive pulmonary disease) J44.9 Atrial fibrillation I48.91 Nocturnal hypoxia G47.34 Hypertension I10 Hypertension type: essential hypertension GERD (gastroesophageal reflux disease) K21.9 BPH (benign prostatic hyperplasia) N40.0 Osteoarthritis M19.90 Time Spent (min) 35 (1) Hypertension Hypertension type: essential hypertension Qualified Code(s): I10 - Essential (primary) hypertension
[2022-08-08 08:47] LABS: Hematocrit (blood only) 30.5 % (40.1-51.0); Hemoglobin 9.7 g/dl (14.0-18.0); Mean Corpuscular Hemoglobin 30.1 pg (25.0-34.0); Mean Corpuscular Hgb Conc 31.8 g/dL (32.0-36.0); Mean Corpuscular Volume 94.7 fL (80.0-100.0); Mean Platelet Volume 9.9 fL (9.4-12.4); Platelet Count 214 K/uL (130-400); RDW Coefficient of Variation 13.4 % (11.5-14.5); RDW Standard Deviation 46.5 fL (36.4-46.3); Red Blood Count 3.22 M/uL (4.63-6.08)
[2022-08-08] MEDS: CALCIUM CARBONATE 1250MG TAB PO SCH (09:06)
[2022-08-08 09:07] LABS: BUN Creatinine Ratio 12.7 (10-20); Calcium 8.3 mg/dl (8.5-10.1); Creatinine Clr Calc Pharmacy 40.1 ml/min; Est GFR (African American) 60.3 ml/min; Potassium 3.9 mmol/L (3.5-5.1)
[2022-08-08] MEDS: MAGNESIUM OXIDE 400 MG TAB PO SCH (09:07)
[2022-08-08] MEDS: TELMISARTAN 40 MG TAB PO SCH (09:07)
[2022-08-08] MEDS: METOPROLOL SUCC 50MG EXT REL TAB PO SCH (09:07)
[2022-08-08] MEDS: PANTOprazole 40 MG TAB PO SCH (09:07)
[2022-08-08] MEDS: FINASTERIDE 5 MG TAB PO SCH (09:07)
[2022-08-08] MEDS: CEROVITE ADV FORMULA TAB PO SCH (09:07)
[2022-08-08] MEDS: CeleBREX 200 MG CAP PO SCH (09:07)
[2022-08-08] MEDS: BUDESONIDE/GLYCOPYR/FORMOTEROL INHALER INH SCH ×2 (09:08→19:55)
[2022-08-08] MEDS: POTASSIUM CHLORIDE CRTAB 20 MEQ TABCR PO SCH (09:10)
--- NOTE | 2022-08-08 13:30 | Surgery Progress Note ---
Date of Service August 08, 2022 Assessment & Plan (1) Ischemia of toe: Plan: Pt s/p RLE angio with lithotripsy. Doing well. Will see as outpt in follow up as scheduled for his PEVAR surveillance. Please call if needed. Admission and Anticipated Discharge Date Admission Date: August 03, 2022 Subjective 82 yo m POD #1 after RLE angio with lithotripsy and STOCK SPECULATOR of TP trunk, seen in f/u today. Pt states overall feeling well. Denies any problems with groin puncture site. Is having some R foot pain in amp site. No new complaints regarding foot. present today. Review of Systems Review of Systems: All systems reviewed & are unremarkable except as noted in HPI & below Physical Exam Constitutional: WD/WN, vitals as above cooperative and comfortable; not in distress Cardiovascular: Vessels: femoral pulses present, posterior tibial pulses present (+1 LLE, +1 RLE), dorsalis pedis pulses present (+1 LLE, +1 RLE) and rad ial pulses present; + abnormal peripheral pulses Extremities: + abnormal capillary refill ( Toes 2&3 delayed cap refill) Skin: no rashes, warm and dry Groin puncture C/D/I Results & Data ([facility]) Vital Signs (Past 12 Hours) Vital Signs Temp Pulse Resp BP Pulse Ox O2 Del Method O2 Flow Rate 08/08/22 08:12 Nasal Cannula 2 08/08/22 07:37 37.1 C 77 16 158/74 H 91 Room Air 08/08/22 03:49 37.0 C 69 18 148/73 H 96
[2022-08-08] MEDS: MONTELUKAST SODIUM 10 MG TABLET PO SCH (19:56)
[2022-08-08] MEDS: MELATONIN 3 MG TAB PO SCH (19:56)
[2022-08-08] MEDS: FAMOTIDINE 20 MG TAB PO SCH (19:57)
[2022-08-09] MEDS: ACETAMINOPHEN 325 MG TAB PO PRN ×2 (01:26→08:48)
[2022-08-09] MEDS: PIPERACILLIN/TAZOBACTAM 3.375 GM in DEXTROSE 5% 100 ML IV SCH ×3 (04:59→20:39)
[2022-08-09 06:07] LABS: Hematocrit (blood only) 29.6 % (40.1-51.0); Hemoglobin 9.4 g/dl (14.0-18.0); Mean Corpuscular Hemoglobin 30.1 pg (25.0-34.0); Mean Corpuscular Hgb Conc 31.8 g/dL (32.0-36.0); Mean Corpuscular Volume 94.9 fL (80.0-100.0); Mean Platelet Volume 9.8 fL (9.4-12.4); Platelet Count 211 K/uL (130-400); RDW Coefficient of Variation 13.2 % (11.5-14.5); RDW Standard Deviation 45.3 fL (36.4-46.3); Red Blood Count 3.12 M/uL (4.63-6.08); White Blood Count 11.15 K/ul (4.8-10.8)
[2022-08-09 06:47] LABS: BUN Creatinine Ratio 14.4 (10-20); Calcium 8.2 mg/dl (8.5-10.1); Creatinine Clr Calc Pharmacy 40.4 ml/min; Est GFR (African American) 60.9 ml/min; Est GFR (Non-African American) 52.5 ml/min; Potassium 3.8 mmol/L (3.5-5.1)
--- NOTE | 2022-08-09 07:14 | Orthopedic Progress Note ---
Date of Service August 09, 2022 Assessment & Plan (1) Ischemia of toe: Plan: Patient seen, evaluated, and treated. - Incision site shows excellent signs of healing. Skin well co-apted. Sutures intact. - Concern exists for Right second and third toes, however they appear stable. -Patient is partial weight bearing to right heel Thank you for allowing me to participate in the care of this Patient. Will continue to follow. (2) Ischemic ulcer of right foot: Admission and Anticipated Discharge Date Admission Date: August 03, 2022 Subjective Patient status post left first toe amputation DOS 08/06/22. Patient status post re-vascularization DOS 08/07/22. Patient seen with at bedside who helps with history and care. No complaints. Review of Systems Review of Systems: All systems reviewed & are unremarkable except as noted in HPI & below Physical Exam Physical Exam: Dressing clean, dry, and intact. Incision site well co-apted. Results & Data ([facility]) Vital Signs (Past 12 Hours) Vital Signs Temp Pulse Resp BP Pulse Ox O2 Del Method O2 Flow Rate 08/08/22 20:00 Nasal Cannula 2 08/08/22 20:32 36.9 C 69 18 144/74 H 94 Room Air
--- NOTE | 2022-08-09 07:57 | Hospitalist Progress Note ---
Date of Service August 09, 2022 Assessment & Plan (1) Ischemic ulcer of right foot: Shelley Sosa is an 82 year old male with hx of OA, nocturnal hypoxia, HTN, GERD, BPH, A Fib, dementia, carotid artery stenosis, anemia, COPD, and AA (s/p EVAR 04/20) who is admitted for an ischemic ulceration of his right foot. He had a procedure performed on his great toe nail 07/24 by podiatry which ultimately developed pain and discoloration. 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 Ischemic ulcer of right foot: -Podiatry performed right 1st hallux amputation and excision of nonviable tissue 08/06 -Vascular performed right leg angiogram with intravascular lithotripsy 08/07 -Continue with Zosyn -Vancomycin was stopped due to low trough -Blood cultures no growth x 2 different sites on 08/03 and 08/05 -Pain control with Tylenol and tramadol -Monitor labs and vitals -Continue Incentive spirometry -tolerating diet -PT/OT are evaluating -Case management also evaluating for possible outpatient placement for rehab --- PT/OT Recommending SNF --- Outpatient rehab pending placement --- Orthopedics: Right 2-3 digits appear stable, weight bearing to heel, incision w/ good healing Chronic Conditions * Dementia - Baseline AO x 4, at baseline w/o medication * COPD - Stable on RA during day, continue breathing treatments and incentive spirometry * Nocturnal Hypoxia - 2L NC ordered HS * A Fib - rate controlled, on Metoprolol 50 mg, not anticoagulated d/t GIB hx * Hx of GIB - Vascular started Plavix 300 mg x 1 and 75 mg daily, follow * HTN - continue home Telmisartan 40 mg daily * GERD - continue home Protonix and Famotidine * BPH - continue home Finasteride 5 mg PO daily * OA - continue home Celebrex 200 mg PO daily FEN: Heart healthy Code status: Full Code DVT ppx: SCD, no chemical ppx d/t hx of GIB Isolation: None Dispo:Med/Surg, pending placement Admission and Anticipated Discharge Date Admission Date: August 03, 2022 Supervising Physician Co-Signing Physician Notes I personally examined the patient and verified all lawler points of history and exam, discussed case, and agree with decision making with Dr Zimmerman Feeling pretty good overall. Awaiting rehab. Pleased with his progress. Vitals noted, in general he is awake and alert pleasant no distress. HEENT normocephalic atraumatic mucous membranes moist. Breathing unlabored no accessory muscle use good effort. Right lower extremity dressed in bulky dressing, visible skin shows no erythema Vascular insufficiency related foot infectionstatus post amputation, status post revascularization, improving on antibiotics after all of above. Awaiting r ehab. María Elena Sosa is an 82 year old male with hx of OA, nocturnal hypoxia, HTN, GERD, BPH, A Fib, dementia, carotid artery stenosis, anemia, COPD, and AA (s/p EVAR 04/20) who is admitted for an ischemic ulceration of his right foot. He had a procedure performed on his great toe nail 07/24 by podiatry which ultimately developed pain and discoloration. 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 07/08: Patient is overall feeling well today, he notes that he is strongly antici pating orthopedic's removal of his foot bandage. He notes 8/10 pain in his right foot which is well controlled when he receives his current medications (Celecoxib/Tylenol). He notes chronic shortness of breath w/ activity 2/2 COPD. Denies chest pain or abdominal pain. Patient is not experiencing fevers or chills. Review of Systems Review of Systems: As per HPI Physical Exam Physical Exam: Gen: NAD, alert, interactive Resp:Non-labored, no wheezing/rhonchi/rales, CTAB CV:RRR, normal S1/S2, no M/R/G Abd: Soft, non-distended, no TTP, normoactive bowels, no masses Extr: 2+ dp bilaterally, no edema - Sensation intact in remaining digits of right foot, no erythema or discoloration of remaining digits, surgical bandages remain intact surrounding right foot/toes Skin: No rashes lesions or erythema Results & Data Results & Data ([facility]) Vital Signs (Past 12 Hours) Vital Signs Temp Pulse Resp BP Pulse Ox O2 Del Method O2 Flow Rate 08/08/22 20:00 Nasal Cannula 2 08/08/22 20:32 36.9 C 69 18 144/74 H 94 Room Air Diagnostic Findings Laboratory Results WBC 11.15 K/ul (4.8-10.8) H 08/09/22 05:38 RBC 3.12 M/uL (4.63-6.08) L 08/09/22 05:38 Hgb 9.4 g/dl (14.0-18.0) L 08/09/22 05:38 Hct 29.6 % (40.1-51.0) L 08/09/22 05:38 MCV 94.9 fL (80.0-100.0) 08/09/22 05:38 MCH 30.1 pg (25.0-34.0) 08/09/22 05:38 MCHC 31.8 g/dL (32.0-36.0) L 08/09/22 05:38 RDW Std Deviation 45.3 fL (36.4-46.3) 08/09/22 05:38 RDW Coeff of Alan 13.2 % (11.5-14.5) 08/09/22 05:38 Plt Count 211 K/uL (130-400) 08/09/22 05:38 MPV 9.8 fL (9.4-12.4) 08/09/22 05:38 Immature Gran % (Auto) 0.3 % 08/03/22 12:19 Neut % (Auto) 78.1 % 08/03/22 12:19 Lymph % (Auto) 10.9 % 08/03/22 12:19 Smith % (Auto) 8.3 % 08/03/22 12:19 Eos % (Auto) 1.8 % 08/03/22 12:19 Baso % (Auto) 0.6 % 08/03/22 12:19 Neut # (Auto) 7.99 K/uL (1.4-6.5) H 08/03/22 12:19 Lymph # (Auto) 1.12 K/uL (1.2-3.4) L 08/03/22 12:19 Smith # (Auto) 0.85 K/uL (0.24-0.82) H 08/03/22 12:19 Eos # (Auto) 0.18 K/uL (0-0.50) 08/03/22 12:19 Baso # (Auto) 0.06 K/uL (0-0.2) 08/03/22 12:19 Immature Gran # (Auto) 0.03 K/uL (0.00-0.02) H 08/03/22 12:19 ESR 60 mm/hr (0-20) H 08/03/22 12:19 PT 13.0 Seconds (9.0-12.0) H 08/06/22 06:15 INR 1.2 (0.9-1.1) H 08/06/22 06:15 APTT 29.1 Seconds (21.0-31.0) 08/03/22 12:19 PTT Ratio 1.1 08/03/22 12:19 Sodium 136 mmol/L (136-145) 08/09/22 05:38 Potassium 3.8 mmol/L (3.5-5.1) 08/09/22 05:38 Chloride 105 mmol/L (98-107) 08/09/22 05:38 Carbon Dioxide 26 mmol/L (21-32) 08/09/22 05:38 Anion Gap 5 (3-11) 08/09/22 05:38 BUN 18 mg/dl (6-23) 08/09/22 05:38 Creatinine 1.25 mg/dl (0.6-1.4) 08/09/22 05:38 Est Cr Clr Drug Dosing 40.4 ml/min 08/09/22 05:38 Est GFR ( Amer) 60.9 ml/min 08/09/22 05:38 Est GFR (Non-Af Amer) 52.5 ml/min 08/09/22 05:38 BUN/Creatinine Ratio 14.4 (10-20) 08/09/22 05:38 Glucose 110 mg/dl (70-99(Fasting)) H 08/09/22 05:38 Calcium 8.2 mg/dl (8.5-10.1) L 08/09/22 05:38 Total Bilirubin 0.4 mg/dl (0.2-1.0) 08/06/22 06:15 AST 11 U/L (13-39) L 08/06/22 06:15 ALT 8 U/L (7-52) 08/06/22 06:15 Alkaline Phosphatase 84 U/L (34-104) 08/06/22 06:15 C-Reactive Protein 11.68 mg/dl (0-0.5) H 08/03/22 12:19 Total Protein 6.4 gm/dl (6.0-8.3) 08/06/22 06:15 Albumin 3.1 gm/dl (3.4-5.0) L 08/06/22 06:15 Globulin 3.3 gm/dl (2.5-4.0) 08/06/22 06:15 Albumin/Globulin Ratio 0.9 (0.9-2) 08/06/22 06:15 Stl C. diff Tox B Gene Negative Cdiff Gene (Neg) 08/09/22 Unknown Random Vancomycin 6.5 mcg/ml (10-20) L 08/06/22 06:15 SARS-CoV-2, RNA, NAAT NEGATIVE (NEGATIVE) 08/03/22 12:55 Impressions Duplex Scan Lower Extremity Artery 08/03/22 12:29 US arterial duplex LE RT HISTORY: 82 years-old Male ro PAD peripheral arterial disease COMPARISON: None TECHNIQUE: Multiple real-time sonographic images of the right lower extremity arterial structures were obtained assessing grayscale appearance, color and spectral flow FINDINGS: Scattered atherosclerotic plaque. Triphasic waveforms are noted about the level of the knee. Elevated peak systolic velocities within the mid aspect of the superficial femoral artery measure up to 187 cm per. No additional significantly elevated peak systolic velocities are identified. No arterial occlusion. And monophasic and biphasic waveforms noted below the level of the knee. Spectral broadening noted within the distal peroneal and dorsalis pedis arteries with monophasic waveforms. IMPRESSION: 1. Atherosclerotic vascular disease with elevated peak systolic velocities in the superficial femoral artery suggestive of stenosis of at least 50%. 2. No arterial occlusion. 3. Monophasic waveforms within the lower leg. Foot X-Ray 08/03/22 20:06 XR foot RT min 3V routine CLINICAL HISTORY: Right great toe infection. COMPARISON: None FINDINGS: Hallux valgus deformity is noted with severe osteoarthritis of the right first metatarsophalangeal joint. Given first toe deformity, the right first distal phalanx is partially obscured on this exam. However, there is no evidence for acute osteomyelitis. No acute fracture is identified. IMPRESSION: 1. No radiographic evidence of acute osteomyelitis within the right great toe. No acute fracture. 2. Hallux valgus with osteoarthritis of the right first metatarsophalangeal joint. Resident Activity Tracking Resident Involvement: Resident Care Provided Care Provided: Adult [facility] Medicine
[2022-08-09] MEDS: METOPROLOL SUCC 50MG EXT REL TAB PO SCH (08:47)
[2022-08-09] MEDS: BUDESONIDE/GLYCOPYR/FORMOTEROL INHALER INH SCH ×2 (08:47→20:39)
[2022-08-09] MEDS: FINASTERIDE 5 MG TAB PO SCH (08:47)
[2022-08-09] MEDS: POTASSIUM CHLORIDE CRTAB 20 MEQ TABCR PO SCH (08:47)
[2022-08-09] MEDS: MAGNESIUM OXIDE 400 MG TAB PO SCH (08:48)
[2022-08-09] MEDS: CLOPIDOGREL BISULFATE 75 MG TAB PO SCH (08:48)
[2022-08-09] MEDS: CeleBREX 200 MG CAP PO SCH (08:48)
[2022-08-09] MEDS: TELMISARTAN 40 MG TAB PO SCH (08:48)
[2022-08-09] MEDS: CEROVITE ADV FORMULA TAB PO SCH (08:48)
[2022-08-09] MEDS: PANTOprazole 40 MG TAB PO SCH (08:48)
[2022-08-09] MEDS: CALCIUM CARBONATE 1250MG TAB PO SCH (08:48)
[2022-08-09] MEDS: traMADol HCL 50 MG TABLET PO PRN (17:57)
--- NOTE | 2022-08-09 18:49 | Billing Data ---
Date of Service August 09, 2022 Coding Level of Care Code 09742 Subseq Hosp Care Lvl 2
[2022-08-09] MEDS: MELATONIN 3 MG TAB PO SCH (20:40)
[2022-08-09] MEDS: MONTELUKAST SODIUM 10 MG TABLET PO SCH (20:40)
[2022-08-09] MEDS: FAMOTIDINE 20 MG TAB PO SCH (20:40)
[2022-08-10] MEDS: PIPERACILLIN/TAZOBACTAM 3.375 GM in DEXTROSE 5% 100 ML IV SCH ×2 (04:17→11:36)
[2022-08-10] MEDS: ACETAMINOPHEN 325 MG TAB PO PRN (06:41)
--- NOTE | 2022-08-10 07:50 | Discharge Summary ---
Date of Service August 10, 2022 Admission HPI Per Admitting Provider Ian is an 82 year old male with a PMH significant for Dementia, Afib (not on anticoagulation due to multiple GI bleeds), COPD (moderately severe) on 2L NC HS, impaired fasting glucose, HTN, Infrarenal AA S/P endovascular repair on 04/24/[address] 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 Per chart review, the patient recently had an ingrown toenail removed by his manager roofing on 07/24/22. He subsequently experienced increased pain and swelling in his leg. His PCP had him get a NATHALIA of the leg which showed moderate right and mild left arterial insufficiency. The patient's PCP started him on Clindamycin and toradol for pain. His brought him to the ED today due to concerns for worsening infection and fear that the toe would need to be amputated. Per the ED staff, they spoke with vascular surgery and Podiatry. 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 Vascular surgery recommended repeating the NATHALIA today for further evaluation. Dr. Ventura of Podiatry stated that he would evaluate the patient to see what treatments would be needed, her recommended medicine admit due to the patient's chronic medication conditions. For now the patient will be started on broad spectrum antibiotics and repeat imaging has been ordered by the ED staff. In the ED the patient was found to be afebrile, hemodynamically stable, and stable on RA. Labs were remarkable for WBC WNL, stable Hgb at 11.1, stable renal function and electrolytes, pending covid test. Prior to admission the patient was started on Zosyn and Vancomycin in the ED. At the time of my exam the patient was arriving back from his vascular study, he is in no acute distress. The majority of the history was obtained from the patient's who is his primary caregiver. They state that he was in his normal state of health until he had an ingrown toenail removed approximately two weeks ago by his manager roofing. His states that a few days after the procedure the patient was still experiencing significant great right toe pain so they went back on 07/24/22. At that appointment the manager roofing removed more of his ingrown toenail. His states that his great right toe was slightly discolored at that appointment. After his appointment on 07/24 the his pain swelling continued to progress. We was seen again in the podiatry office on 07/31, this is when he was placed on Clindamycin and toradol and his initial NATHALIA was obtained. At the present time the patient states that his right toe and foot pain is an 8/10. He states that his pain is slightly improved when he lets his leg hang over the side of the bed. He denies recent fevers, chills, changes in vision, hearing, taste, and smell, chest pain, SOB more than his baseline, abdominal pain, nausea, vomiting, diarrhea, dysuria, hematuria, and recent falls. I spoke to the patient and his regarding code status, he is a coditional code. He does NOT want CPR but would want all other ACLS measures including intubation if needed. Admission Exam Per Admitting Provider Physical Exam: General:In no acute distress, stated age, well-nourished, good hygiene HEENT:Normocephalic, atraumatic, no scleral icterus, pupils around round, symmetrical, and reactive to light, moist mucus membranes, trachea midline, no thyromegaly Chest/Pulm:No respiratory distress, symmetrical chest expansion, clear breath sounds throughout Cardiac:RRR, no murmurs noted Abdomen:Negative for ascites and bruising, normoactive bowel sounds, soft, non-tender to palpation throughout Musculoskeletal:Patient with discolored great right toe, the proximal portion of the great right tow is erythematous and has a small bullae which is still intact, some erythema noted on the dorsal aspect of the right foot Extremities:Radial, dorsalis pedis, and posterior tibial pulses are intact and symmetrical, +1 pitting edema in the LLE, +2 pitting edema in the RLE Skin:Warm, dry, as described above Neuro:Alert and oriented to person, place, month, year, and president, no focal defects, CN II-XII tested and intact, finger to nose test negative, no tremors noted Psych:No acute distress, calm and cooperative during the exam Principal Diagnosis Ischemic Ulcer of Foot 2/2 Vascular Disease Discharge Exam Gen: NAD, alert, interactive Resp:Non-labored, no wheezing/rhonchi/rales, CTAB CV:RRR, normal S1/S2, no M/R/G Abd: Soft, non-distended, no TTP, normoactive bowels, no masses Extr: 2+ dp bilaterally, no edema - Sensation intact in remaining digits of right foot, no erythema or discoloration of remaining digits, surgical bandages remain intact surrounding right foot/toes Skin: No rashes lesions or erythema Discharge Data Allergies Allergy/AdvReac Type Severity Reaction Status Date / Time No Known Allergies Allergy Unverified 08/03/22 16:10 Consultations 08/03/22 12:39 Consult Podiatry Routine Consult Vascular Surgery Routine 08/03/22 12:41 ED Decision to Admit Stat Procedures Performed Operation Date: 08/06/22 09:30 Actual Procedures p Right Great Toe Amputation and Excision of nonviable tissue(Right) - Papito Ventura, KASSYM, MS Operation Date: 08/07/22 08:40 Actual Procedures p Right Leg Angiogram, Ultrasound Localization of Right femoral Artery, Intravascular Lithotripsy of Right Tibial Peroneal Trunk and Superficial Femoral Arteries, Mechanical Closure of Right Femoral Artery, Moderate Sedation 1058- 1212(Right) - Gabriel Brody MD Ordered Studies Laboratory Results WBC 11.15 K/ul (4.8-10.8) H 08/09/22 05:38 RBC 3.12 M/uL (4.63-6.08) L 08/09/22 05:38 Hgb 9.4 g/dl (14.0-18.0) L 08/09/22 05:38 Hct 29.6 % (40.1-51.0) L 08/09/22 05:38 MCV 94.9 fL (80.0-100.0) 08/09/22 05:38 MCH 30.1 pg (25.0-34.0) 08/09/22 05:38 MCHC 31.8 g/dL (32.0-36.0) L 08/09/22 05:38 RDW Std Deviation 45.3 fL (36.4-46.3) 08/09/22 05:38 RDW Coeff of Alan 13.2 % (11.5-14.5) 08/09/22 05:38 Plt Count 211 K/uL (130-400) 08/09/22 05:38 MPV 9.8 fL (9.4-12.4) 08/09/22 05:38 Immature Gran % (Auto) 0.3 % 08/03/22 12:19 Neut % (Auto) 78.1 % 08/03/22 12:19 Lymph % (Auto) 10.9 % 08/03/22 12:19 Harlan % (Auto) 8.3 % 08/03/22 12:19 Eos % (Auto) 1.8 % 08/03/22 12:19 Baso % (Auto) 0.6 % 08/03/22 12:19 Neut # (Auto) 7.99 K/uL (1.4-6.5) H 08/03/22 12:19 Lymph # (Auto) 1.12 K/uL (1.2-3.4) L 08/03/22 12:19 Harlan # (Auto) 0.85 K/uL (0.24-0.82) H 08/03/22 12:19 Eos # (Auto) 0.18 K/uL (0-0.50) 08/03/22 12:19 Baso # (Auto) 0.06 K/uL (0-0.2) 08/03/22 12:19 Immature Gran # (Auto) 0.03 K/uL (0.00-0.02) H 08/03/22 12:19 ESR 60 mm/hr (0-20) H 08/03/22 12:19 PT 13.0 Seconds (9.0-12.0) H 08/06/22 06:15 INR 1.2 (0.9-1.1) H 08/06/22 06:15 APTT 29.1 Seconds (21.0-31.0) 08/03/22 12:19 PTT Ratio 1.1 08/03/22 12:19 Sodium 136 mmol/L (136-145) 08/09/22 05:38 Potassium 3.8 mmol/L (3.5-5.1) 08/09/22 05:38 Chloride 105 mmol/L (98-107) 08/09/22 05:38 Carbon Dioxide 26 mmol/L (21-32) 08/09/22 05:38 Anion Gap 5 (3-11) 08/09/22 05:38 BUN 18 mg/dl (6-23) 08/09/22 05:38 Creatinine 1.25 mg/dl (0.6-1.4) 08/09/22 05:38 Est Cr Clr Drug Dosing 40.4 ml/min 08/09/22 05:38 Est GFR ( Amer) 60.9 ml/min 08/09/22 05:38 Est GFR (Non-Af Amer) 52.5 ml/min 08/09/22 05:38 BUN/Creatinine Ratio 14.4 (10-20) 08/09/22 05:38 Glucose 110 mg/dl (70-99(Fasting)) H 08/09/22 05:38 Calcium 8.2 mg/dl (8.5-10.1) L 08/09/22 05:38 Total Bilirubin 0.4 mg/dl (0.2-1.0) 08/06/22 06:15 AST 11 U/L (13-39) L 08/06/22 06:15 ALT 8 U/L (7-52) 08/06/22 06:15 Alkaline Phosphatase 84 U/L (34-104) 08/06/22 06:15 C-Reactive Protein 11.68 mg/dl (0-0.5) H 08/03/22 12:19 Total Protein 6.4 gm/dl (6.0-8.3) 08/06/22 06:15 Albumin 3.1 gm/dl (3.4-5.0) L 08/06/22 06:15 Globulin 3.3 gm/dl (2.5-4.0) 08/06/22 06:15 Albumin/Globulin Ratio 0.9 (0.9-2) 08/06/22 06:15 Stl C. diff Tox B Gene Negative Cdiff Gene (Neg) 08/09/22 Unknown Random Vancomycin 6.5 mcg/ml (10-20) L 08/06/22 06:15 SARS-CoV-2, RNA, NAAT NEGATIVE (NEGATIVE) 08/03/22 12:55 Impressions Duplex Scan Lower Extremity Artery 08/03/22 12:29 US arterial duplex LE RT HISTORY: 82 years-old Male ro PAD peripheral arterial disease COMPARISON: None TECHNIQUE: Multiple real-time sonographic images of the right lower extremity arterial structures were obtained assessing grayscale appearance, color and spectral flow FINDINGS: Scattered atherosclerotic plaque. Triphasic waveforms are noted about the level of the knee. Elevated peak systolic velocities within the mid aspect of the superficial femoral artery measure up to 187 cm per. No additional significantly elevated peak systolic velocities are identified. No arterial occlusion. And monophasic and biphasic waveforms noted below the level of the knee. Spectral broadening noted within the distal peroneal and dorsalis pedis arteries with monophasic waveforms. IMPRESSION: 1. Atherosclerotic vascular disease with elevated peak systolic velocities in the superficial femoral artery suggestive of stenosis of at least 50%. 2. No arterial occlusion. 3. Monophasic waveforms within the lower leg. Foot X-Ray 08/03/22 20:06 XR foot RT min 3V routine CLINICAL HISTORY: Right great toe infection. COMPARISON: None FINDINGS: Hallux valgus deformity is noted with severe osteoarthritis of the right first metatarsophalangeal joint. Given first toe deformity, the right first distal phalanx is partially obscured on this exam. However, there is no evidence for acute osteomyelitis. No acute fracture is identified. IMPRESSION: 1. No radiographic evidence of acute osteomyelitis within the right great toe. No acute fracture. 2. Hallux valgus with osteoarthritis of the right first metatarsophalangeal joint. Hospital Course (1) Ischemic ulcer of right foot: (2) Peripheral arteriosclerosis: Shelley Sosa is an 82 year old male with hx of OA, nocturnal hypoxia, HTN, GERD, BPH, A Fib, dementia, carotid artery stenosis, anemia, COPD, and AA (s/p EVAR 04/20) who is admitted for an ischemic ulceration of his right foot. He had a procedure performed on his great toe nail 07/24 by podiatry which ultimately developed pain and discoloration. 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 Ischemic ulcer of right foot: -Podiatry performed right 1st hallux amputation and excision of nonviable tissue 08/06 -Vascular performed right leg angiogram with intravascular lithotripsy 08/07 -Continue with Zosyn -Vancomycin was stopped due to low trough -Blood cultures no growth x 2 different sites on 08/03 and 08/05 -Pain control with Tylenol and tramadol -Monitor labs and vitals -Continue Incentive spirometry -tolerating diet -PT/OT are evaluating -Case management also evaluating for possible outpatient placement for rehab --- PT/OT Recommending SNF --- Outpatient rehab pending placement --- Orthopedics: Right 2-3 digits appear stable, weight bearing to heel, incision w/ good healing Chronic Conditions * Dementia - Baseline AO x 4, at baseline w/o medication * COPD - Stable on RA during day, continue breathing treatments and incentive spirometry * Nocturnal Hypoxia - 2L NC ordered HS * A Fib - rate controlled, on Metoprolol 50 mg, not anticoagulated d/t GIB hx * Hx of GIB - Vascular started Plavix 300 mg x 1 and 75 mg daily, follow * HTN - continue home Telmisartan 40 mg daily * GERD - continue home Protonix and Famotidine * BPH - continue home Finasteride 5 mg PO daily * OA - continue home Celebrex 200 mg PO daily FEN: Heart healthy Code status: Full Code DVT ppx: SCD, no chemical ppx d/t hx of GIB Isolation: None Dispo:Antrum Total Time Total Time Spent Total Time Spent (In Minutes): <30 Discharge Plan Discharge Items Patient Disposition: Transfer Care Home Fac Reason For Visit: RIGHT FOOT PAIN Discharge Diagnosis: Ischemic Ulcer of Right Great Toe 2/2 Vascular Disease Activity: Per Instructions section Non-emergency contact: Primary Care Provider Call non-emergency contact if: you have any medication questions, your symptoms worsen and your wound has increased redness Follow-up/Referrals: Malika Freed CRNP [Primary Care Provider] - Diet: Heart Healthy Addtl Attending Provider Instructions: Ian is an 82 year old male with hx of OA, nocturnal hypoxia, HTN, GERD, BPH, A Fib, dementia, carotid artery stenosis, anemia, COPD, and AA (s/p EVAR 04/20) who is admitted for an ischemic ulceration of his right foot. He had a procedure performed on his great toe nail 07/24 by podiatry which ultimately developed pain and discoloration. 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 Ischemic ulcer of right foot: -Podiatry performed right 1st hallux amputation and excision of nonviable tissue 08/06 -Vascular performed right leg angiogram with intravascular lithotripsy 08/07 -Continue with Zosyn -Vancomycin was stopped due to low trough -Blood cultures no growth x 2 different sites on 08/03 and 08/05 -Pain control with Tylenol and tramadol -Monitor labs and vitals -Continue Incentive spirometry -tolerating diet -PT/OT are evaluating -Case management also evaluating for possible outpatient placement for rehab --- PT/OT Recommending SNF --- Outpatient rehab pending placement --- Orthopedics: Right 2-3 digits appear stable, weight bearing to heel, incision w/ good healing Chronic Conditions * Dementia- Baseline AO x 4, at baseline w/o medication * COPD- Stable on RA during day, continue breathing treatments and incentive spirometry * Nocturnal Hypoxia- 2L NC ordered HS * A Fib- rate controlled, on Metoprolol 50 mg, not anticoagulated d/t GIB hx * Hx of GIB- Vascular started Plavix 300 mg x 1 and 75 mg daily, sent Rx for outpatient * HTN- continue home Telmisartan 40 mg daily * GERD- continue home Protonix and Famotidine * BPH- continue home Finasteride 5 mg PO daily * OA- continue home Celebrex 200 mg PO daily FEN: Heart healthy Code status: Full Code DVT ppx: SCD, no chemical ppx d/t hx of GIB Isolation: None Dispo:Antrum Pending Studies at Discharge: No Stand-Alone Forms: My [facility] Skilled Items Patient informed of condition?: Yes DNR: No Discharge Level of Care: Skilled Communicable Disease: No Discharge Prognosis: Stable Lines: None Urinary Catheter: No Medications and DC Order Prescriptions: New clopidogrel 75 mg Tablet 75 mg PO QAM 30 Days Qty: 30 3RF Continued (DME) Oxygen Home Liters Per Minute See Rx Instructions .ROUTE .MEDSUPPLY Qty: 2 0RF Rx Instructions: Home O2: 2LPM via Nasal cannula during sleep. Provide w/ humidification magnesium oxide 400 mg magnesium capsule 400 mg PO QAM Qty: 0 telmisartan [Micardis] 40 mg tablet 40 mg PO QAM Qty: 90 3RF montelukast [Singulair] 10 mg tablet 10 mg PO HS Qty: 90 1RF metoprolol succinate [Toprol XL] 50 mg tablet extended release 24 hr 50 mg PO QAM Qty: 90 3RF celecoxib [Celebrex] 200 mg capsule 200 mg PO QAM Qty: 90 3RF finasteride 5 mg tablet 5 mg PO DAILY Qty: 90 3RF levalbuterol HCl [Xopenex] 1.25 mg/3 mL solution for nebulization 1.25 mg INHALATION Q4 PRN (Reason: Shortness Of Breath) Qty: 180 5RF Breztri Aerosphere 160-9-4.8 mcg/actuation HFA aerosol inhaler 2 inh inhalation BID Qty: 10.7 6RF albuterol sulfate [Ventolin HFA] 90 mcg/actuation HFA aerosol inhaler 2 inh inhalation Q4H PRN (Reason: shortness of breath) Qty: 8.5 3RF (DME) Flutter Valve Device See Rx Instructions .MEDSUPPLY Qty: 1 0RF Rx Instructions: Use it every 6 hours when awake. (DME) nebulizers Misc See Rx Instructions .ROUTE .MEDSUPPLY Qty: 1 0RF Rx Instructions: Q 4HR WITH TUBING & SUPPLIES - DX: COPD calcium carbonate [Calcium 600] 600 mg calcium (1,500 mg) tablet 600 mg PO DAILY potassium chloride 20 mEq Tablet Extended Release 20 meq PO QAM pantoprazole [Protonix] 40 mg tablet,delayed release (DR/EC) 40 mg PO QAM epinephrine [EpiPen 2-Marco [place]] 0.3 mg/0.3 mL auto-injector 0.3 mg IM UD PRN (Reason: bronchodilation) Rx Instructions: 0.3 mg IM Use as Directed PRN; until response carried when did allergy injections Multivitamin 50 Plus Tablet 1 tab PO DAILY clindamycin HCl 150 mg capsule 150 mg PO BID docusate sodium [Colace] 100 mg capsule 100 mg PO BID PRN (Reason: Constipation) diclofenac sodium 1 % gel 2 g topical QID PRN (Reason: Pain) Rx Instructions: apply 2 gm to both shoulders up to three times daily as needed for pain famotidine [Pepcid] 20 mg Tablet 20 mg PO HS Systane (PF) 0.4-0.3 % Dropperette 1 drp OPB BID Eylea 2 mg/0.05 mL Solution 0 mg INTRAVITREAL UD Rx Instructions: takes every 6 weeks for macular degeneration Discharge Orders: Discharge Order (Routine); Ordered 08/10/22 Ordered By: Suzette Zimmerman Admission Data Admit Date/Time: 08/03/22 13:09 Attending Provider: Elton Yan Admit Provider: Ian Donovan Primary Care Provider: Malika Freed Other Providers: Papito Ventura ; Gabriel Brody ; Ian Donovan Other Interventions: Discharge Summary Assessment (RN) Last Done: 08/10/22 13:50 Supervising Physician Co-Signing Physician Notes I personally examined the patient and verified all lawler points of history and exam, discussed case, and agree with decision making with Dr Zimmerman Feeling pretty good overall. for rehab today Vitals noted, in general he is awake and alert pleasant no distress. HEENT normocephalic atraumatic mucous membranes moist. Breathing unlabored no accessory muscle use good effort. Right lower extremity dressed in bulky dressing, visible skin shows no erythema Vascular insufficiency related foot infectionstatus post amputation, status post revascularization, improving on antibiotics after all of above.for rehab today
[2022-08-10] MEDS: CEROVITE ADV FORMULA TAB PO SCH (08:46)
[2022-08-10] MEDS: FINASTERIDE 5 MG TAB PO SCH (08:46)
[2022-08-10] MEDS: MAGNESIUM OXIDE 400 MG TAB PO SCH (08:46)
[2022-08-10] MEDS: PANTOprazole 40 MG TAB PO SCH (08:46)
[2022-08-10] MEDS: CLOPIDOGREL BISULFATE 75 MG TAB PO SCH (08:46)
[2022-08-10] MEDS: CeleBREX 200 MG CAP PO SCH (08:46)
[2022-08-10] MEDS: CALCIUM CARBONATE 1250MG TAB PO SCH (08:46)
[2022-08-10] MEDS: METOPROLOL SUCC 50MG EXT REL TAB PO SCH (08:46)
[2022-08-10] MEDS: POTASSIUM CHLORIDE CRTAB 20 MEQ TABCR PO SCH (08:46)
[2022-08-10] MEDS: BUDESONIDE/GLYCOPYR/FORMOTEROL INHALER INH SCH (08:47)
[2022-08-10] MEDS: TELMISARTAN 40 MG TAB PO SCH (08:47)
[2022-08-10 09:22] LABS: Hematocrit (blood only) 32.1 % (40.1-51.0); Hemoglobin 10.4 g/dl (14.0-18.0); Mean Corpuscular Hemoglobin 29.8 pg (25.0-34.0); Mean Corpuscular Hgb Conc 32.4 g/dL (32.0-36.0); Mean Platelet Volume 9.7 fL (9.4-12.4); Platelet Count 272 K/uL (130-400); RDW Coefficient of Variation 12.8 % (11.5-14.5); Red Blood Count 3.49 M/uL (4.63-6.08); White Blood Count 11.36 K/ul (4.8-10.8)
[2022-08-10 09:58] LABS: BUN Creatinine Ratio 9.4 (10-20); Calcium 8.6 mg/dl (8.5-10.1); Creatinine Clr Calc Pharmacy 39.4 ml/min; Est GFR (African American) 59.2 ml/min; Est GFR (Non-African American) 51.1 ml/min; Potassium 3.7 mmol/L (3.5-5.1)
--- NOTE | 2022-08-10 14:38 | Billing Data ---
Date of Service August 10, 2022 Coding Level of Care Code D/C DAY MANAGEMENT <30 MINS
[2022-08-10] MEDS ORDERED: LOPERAMIDE HCL 2 MG CAP PO PRN (14:39)
== END 2022-08-10 14:53 | DRG 254 ==
LOC: ED 11:02 → SUATTDRO 13:09 → 3W 13:09

== ENCOUNTER 2023-06-18 17:33 | Observation (INO) ==
[2023-06-18] MEDS ORDERED: CEFEPIME 2,000 MG/20 ML VIAL IV STA (18:06)
[2023-06-18] MEDS ORDERED: SODIUM CHLORIDE 0.9% 500 ML IV SCH (18:15)
--- NOTE | 2023-06-18 18:16 | Emergency Department Note ---
Impression & Plan Weakness, Flu-like symptoms, SOB (shortness of breath), COVID-19 ED Provider Note NAME: BREN CURTIS AGE: 82 SEX: M : 1940 ARRIVES VIA: Ambulance INFORMANT: [Patient] ED PROVIDER(S): [Branden Jeronimo MD] CHIEF COMPLAINT: Illness HISTORY OF PRESENT ILLNESS: The patient is an 82-year-old male who has had symptoms for about 24 hours. He has had some headache, nausea and feels very weak and washed out. He is so weak he cannot care for himself today. He has a slight cough. He does have some mild shortness of breath but this is common as he does have COPD. No new urinar y complaints. No abdominal pain. No nausea or vomiting. He has not noticed any rash. No sick contacts. PMHx/PSHx: See Below SOCIAL HISTORY: See Below. PHYSICAL EXAM: GENERAL: Patient is in no acute distress. HEENT: No acute trauma, normocephalic atraumatic, mucous membranes moist, no nasal congestion. NECK: No stridor, no adenopathy, no meningismus, trachea is midline. LUNGS: Decreased breath sounds, primarily on the right. No wheezing. No respiratory distress. HEART: Mildly tachycardic, regular rhythm, no murmurs. ABDOMEN: Soft, nontender, bowel sounds positive, no peritonitis. EXTREMITIES: No cyanosis or edema, full range of motion of all the joints without pain or difficulty, no signs for acute trauma. NEUROLOGIC: Oriented x 3, no acute motor or sensory deficits, no focal weakness. SKIN: No rash, no jaundice, no diaphoresis. DIFFERENTIAL DIAGNOSIS: Viral illness, pneumonia, bronchitis, COVID-19, sepsis or bacteremia, dehydration, tickborne illness, UTI, among others. EMERGENCY DEPARTMENT COURSE/PROCEDURES: Prior/Outside records reviewed: EMS notes. ECG per my interpretation: Indication was weakness. The ECG shows a sinus rhythm with some PVCs. The rate is 97. There is an incomplete right bundle branch block. There are some inverted T waves in the high lateral leads. There is no ST elevation. The QTc is 482. Some subtle LVH was felt present. Compared to an ECG from 04 August 2022, the number of PVCs has decreased. Continuous Cardiac Monitoring per my interpretation: An order was placed for continuous cardiac monitoring. The monitor shows a rate of 102 with sinus tachycardia. MEDICAL DECISION MAKING: There is no leukocytosis or concerning anemia. There is a normal platelet count. No renal failure or significant electrolyte abnormality. Lactic acid level is not elevated making severe sepsis less likely. Alk phos was slightly elevated, the remaining liver enzymes were unremarkable. Procalcitonin level was normal making serious bacterial infection less likely. Urinalysis showed some ketones, no findings of infection. Anaplasmosis and Babesia smears were negative. Send out testing is pending. Lyme disease testing was negative. Respiratory bio fire was positive for COVID-19. Chest film per my review did not show mediastinal widening, pneumonia or pneumothorax, some chronic changes were seen. On exam, the patient was not toxic or hypoxic. The patient was given IV saline, 1 L. He received IV Decadron and IV cefepime. He was given a DuoNeb. The patient has COPD. As per his family, he has been too weak to do anything for himself today. They cannot take care of him in this condition. I suspect the COVID infection has caused his weakness, flulike symptoms and mild COPD exacerbation. I did speak with the patient and family, I spoke with case management, the on- call hospitalist was consulted. DISPOSITION: Patient presentation and findings warrant a hospital stay. Past Med/Surg History Medical History Anemia Anemia Aneurysm of infrarenal abdominal aorta 04/18/2022 - 7cm x 6.7 cm Atrial fibrillation dx 7 yrs ago Atrial fibrillation Benign localized prostatic hyperplasia with lower urinary tract symptoms (LUTS) BPH (benign prostatic hyperplasia) Carotid artery stenosis CKD (chronic kidney disease) CKD (chronic kidney disease) COPD (chronic obstructive pulmonary disease) Dementia Erectile dysfunction Erectile dysfunction GERD (gastroesophageal reflux disease) Hearing loss History of tobacco use Hypertension Hypertension Implantable loop recorder present dr jacobson - 3 yrs ago Insomnia Ischemia of toe Ischemic ulcer of right foot Neutrophilic leukocytosis Nocturnal hypoxia o2 2l at hs Osteoarthritis Syncopal episodes summer 2020 Surgical History History of left hip replacement History of right hip replacement Hx of appendectomy Hx of colonoscopy S/P AAA repair using bifurcation graft S/P endovascular aneurysm repair Family History Other Coronary heart disease Diabetes Social History Smoking Status: Former smoker Tobacco Type: Cigarettes Age Started Using Tobacco: 18; packs per day: 1; Cigarettes Per Day: 1pack; Second Hand Exposure: No; Do You Dip or Chew Tobacco: No; Hx Alcohol Use: No Hx Substance Use: No Preferred Language: Nauruan Communication Ability: Effective Visual Impairment: No Limitations Case Packer And Sealer Required: No Beliefs That Will Affect Care: None marital status: Current Living Situation: Spouse current occupational status: retired How many Children do You have: 1 other: [place] from [id number]. Discharge rank E4. No combat injury Feels Safe at Home: Yes Dental Care, Regularly: No Seatbelt Use: always Sunscreen Use: Yes Assistive Devices: None Allergies Allergies Allergy/AdvReac Type Severity Reaction Status Date / Time No Known Allergies Allergy Verified 06/18/23 21:43 Home Meds Home Medications Medication Instructions Recorded Confirmed famotidine 20 mg tablet (Pepcid) 20 mg PO HS 06/03/21 06/18/23 peg 400-propylene glycol (PF) 0.4 1 drp OPB BID 06/03/21 06/18/23 %-0.3 % eye drops in a dropperette (Systane (PF)) magnesium oxide 400 mg PO QAM #0 caps 01/16/22 06/18/23 epinephrine 0.3 mg/0.3 mL 0.3 mg IM UD PRN bronchodilation 04/20/22 06/18/23 injection, auto-injector (EpiPen 2-Marco Antonio) [id number] 1 tab PO DAILY 04/24/22 06/18/23 tablet (Multivitamin 50 Plus tablet) calcium carbonate 600 mg calcium 600 mg PO DAILY 06/25/22 06/18/23 (1,500 mg) tablet (Calcium) docusate sodium 100 mg capsule 100 mg PO BID PRN Constipation 08/03/22 06/18/23 (Colace) aspirin 81 mg tablet,delayed 81 mg PO DAILY 02/07/23 06/18/23 release aflibercept 2 mg/0.05 mL 0 mg intravitreal .[id number] 06/18/23 06/18/23 intravitreal solution for injection (Eylea) gabapentin 100 mg capsule 100 mg PO TID 06/18/23 06/18/23 pantoprazole 40 mg tablet,delayed 40 mg PO QAM 06/18/23 06/18/23 release potassium 99 mg tablet 99 mg PO DAILY 06/18/23 06/18/23 Previous Rx's Medication Instructions Recorded Oxygen Home #2 L 12/08/19 nebulizers #1 ea 09/07/20 Flutter Valve #1 ea 12/29/21 telmisartan 40 mg tablet (Micardis) 40 mg PO QAM #90 tabs 05/28/22 metoprolol succinate 50 mg 50 mg PO QAM #90 tabs 06/12/22 tablet,extended release 24 hr (Toprol XL) celecoxib 200 mg capsule (Celebrex) 200 mg PO QAM #90 caps 06/15/22 levalbuterol HCl 1.25 mg/3 mL 1.25 mg (3 mL) inhalation Q4 PRN 06/29/22 solution for nebulization (Xopenex) Shortness Of Breath #180 mL clopidogrel 75 mg tablet 75 mg PO QAM 30 days #30 tabs 08/10/22 finasteride 5 mg tablet 5 mg PO DAILY #90 tabs 09/19/22 sildenafil 100 mg tablet 100 mg PO DAILY PRN sexual 09/19/22 activity #20 tabs albuterol sulfate 90 mcg/actuation 2 inh inhalation Q4H PRN shortness 01/02/23 aerosol inhaler (Ventolin HFA) of breath #8.5 grams budesonide 160 mcg-glycopyr 9 2 inh inhalation BID COPD #10.7 01/02/23 mcg-formot 4.8 mcg/actuation HFA grams inhaler (Breztri Aerosphere) simvastatin 20 mg tablet 20 mg PO DAILY 90 days #90 tabs 02/07/23 montelukast 10 mg tablet 10 mg PO HS #90 tabs 06/14/23 (Singulair) Results & Data (ED) Vital Signs Vital Signs - 24 hr 06/18/23 17:44 06/18/23 17:45 06/18/23 18:07 Temperature 37.3 C Temperature Source Oral Pulse Rate 102 H 102 H Pulse Rate from SpO2 Sensor Respiratory Rate 26 H Respiratory Effort / Characteristics Non-Labored Spontaneous Respiratory Depth Normal Respiratory Pattern Regular Blood Pressure 129/95 Blood Pressure Mean 106 Pulse Oximetry 96 96 Oxygen Delivery Method Room Air Room Air Oxygen Flow Rate 0 Sepsis Recent Fever Within 48 Hours No Sepsis New/Unexplained Change in Mental Status No Sepsis Action Taken by Nursing Physician Notified 06/18/23 17:46 06/18/23 18:00 06/18/23 18:00 Temperature Temperature Source Pulse Rate 101 H 99 H Pulse Rate from SpO2 Sensor 98 H 100 H Respiratory Rate 23 33 H Respiratory Effort / Characteristics Respiratory Depth Respiratory Pattern Blood Pressure 141/85 H Blood Pressure Mean 98 Pulse Oximetry 96 93 Oxygen Delivery Method Oxygen Flow Rate Sepsis Recent Fever Within 48 Hours Sepsis New/Unexplained Change in Mental Status Sepsis Action Taken by Nursing 06/18/23 18:15 06/18/23 18:30 06/18/23 18:30 Temperature Temperature Source Pulse Rate 95 H 95 H Pulse Rate from SpO2 Sensor 95 H Respiratory Rate 28 H 40 H Respiratory Effort / Characteristics Respiratory Depth Respiratory Pattern Blood Pressure 158/92 H Blood Pressure Mean 119 Pulse Oximetry 93 Oxygen Delivery Method Oxygen Flow Rate Sepsis Recent Fever Within 48 Hours Sepsis New/Unexplained Change in Mental Status Sepsis Action Taken by Nursing 06/18/23 18:45 06/18/23 19:00 06/18/23 19:00 Temperature Temperature Source Pulse Rate 94 H 93 H Pulse Rate from SpO2 Sensor 94 H Respiratory Rate 38 H 25 H Respiratory Effort / Characteristics Respiratory Depth Respiratory Pattern Blood Pressure 170/95 H Blood Pressure Mean 103 Pulse Oximetry 96 Oxygen Delivery Method Room Air Oxygen Flow Rate Sepsis Recent Fever Within 48 Hours Sepsis New/Unexplained Change in Mental Status Sepsis Action Taken by Nursing 06/18/23 19:15 06/18/23 19:30 06/18/23 19:30 Temperature Temperature Source Pulse Rate 92 H 92 H Pulse Rate from SpO2 Sensor 91 H 91 H Respiratory Rate 30 H 38 H Respiratory Effort / Characteristics Respiratory Depth Respiratory Pattern Blood Pressure 169/102 H Blood Pressure Mean 152 Pulse Oximetry 94 96 Oxygen Delivery Method Oxygen Flow Rate Sepsis Recent Fever Within 48 Hours Sepsis New/Unexplained Change in Mental Status Sepsis Action Taken by Nursing 06/18/23 19:45 06/18/23 20:00 06/18/23 20:01 Temperature Temperature Source Pulse Rate 95 H 92 H Pulse Rate from SpO2 Sensor 98 H Respiratory Rate 19 33 H Respiratory Effort / Characteristics Respiratory Depth Respiratory Pattern Blood Pressure 174/95 H Blood Pressure Mean 110 Pulse Oximetry 95 Oxygen Delivery Method Oxygen Flow Rate Sepsis Recent Fever Within 48 Hours Sepsis New/Unexplained Change in Mental Status Sepsis Action Taken by Nursing 06/18/23 20:01 06/18/23 20:15 06/18/23 20:30 Temperature Temperature Source Pulse Rate 98 H 104 H 112 H Pulse Rate from SpO2 Sensor Respiratory Rate 23 29 H 24 Respiratory Effort / Characteristics Respiratory Depth Respiratory Pattern Blood Pressure Blood Pressure Mean Pulse Oximetry Oxygen Delivery Method Oxygen Flow Rate Sepsis Recent Fever Within 48 Hours Sepsis New/Unexplained Change in Mental Status Sepsis Action Taken by Nursing 06/18/23 20:31 06/18/23 20:38 06/18/23 20:38 Temperature Temperature Source Pulse Rate 108 H 108 H Pulse Rate from SpO2 Sensor Respiratory Rate 26 H 24 Respiratory Effort / Characteristics Respiratory Depth Respiratory Pattern Blood Pressure 163/106 H Blood Pressure Mean 131 Pulse Oximetry Oxygen Delivery Method Oxygen Flow Rate Sepsis Recent Fever Within 48 Hours Sepsis New/Unexplained Change in Mental Status Sepsis Action Taken by Nursing 06/18/23 22:03 06/18/23 20:45 06/18/23 21:00 Temperature Temperature Source Pulse Rate 105 H 105 H Pulse Rate from SpO2 Sensor Respiratory Rate 22 Respiratory Effort / Characteristics Respiratory Depth Respiratory Pattern Blood Pressure 144/115 H Blood Pressure Mean 139 Pulse Oximetry Oxygen Delivery Method Oxygen Flow Rate Sepsis Recent Fever Within 48 Hours Sepsis New/Unexplained Change in Mental Status Sepsis Action Taken by Nursing 06/18/23 21:00 06/18/23 21:15 06/18/23 21:30 Temperature Temperature Source Pulse Rate 102 H 106 H Pulse Rate from SpO2 Sensor 105 H 106 H Respiratory Rate 28 H 32 H Respiratory Effort / Characteristics Respiratory Depth Respiratory Pattern Blood Pressure 146/92 H Blood Pressure Mean 110 Pulse Oximetry 93 90 Oxygen Delivery Method Oxygen Flow Rate Sepsis Recent Fever Within 48 Hours Sepsis New/Unexplained Change in Mental Status Sepsis Action Taken by Nursing 06/18/23 21:30 06/18/23 21:45 06/18/23 22:00 Temperature Temperature Source Pulse Rate 107 H 107 H 108 H Pulse Rate from SpO2 Sensor 107 H 106 H 104 H Respiratory Rate 33 H 20 27 H Respiratory Effort / Characteristics Respiratory Depth Respiratory Pattern Blood Pressure Blood Pressure Mean Pulse Oximetry 91 92 Oxygen Delivery Method Oxygen Flow Rate Sepsis Recent Fever Within 48 Hours Sepsis New/Unexplained Change in Mental Status Sepsis Action Taken by Nursing 06/18/23 22:01 06/18/23 22:01 06/18/23 22:15 Temperature Temperature Source Pulse Rate 108 H 104 H Pulse Rate from SpO2 Sensor 112 H 106 H Respiratory Rate 32 H 35 H Respiratory Effort / Characteristics Respiratory Depth Respiratory Pattern Blood Pressure 149/89 H Blood Pressure Mean 111 Pulse Oximetry 92 91 Oxygen Delivery Method Oxygen Flow Rate Sepsis Recent Fever Within 48 Hours Sepsis New/Unexplained Change in Mental Status Sepsis Action Taken by Intermediate Medications Current Medication List: was personally reviewed by me Laboratory Data Attestation: I reviewed the patient's lab results. 06/18/23 17:42 06/18/23 17:42 Lab Results 06/18/23 06/18/23 06/18/23 Range/Units 17:42 17:42 17:42 WBC 10.70 (4.8-10.8) K/ul RBC 4.24 L (4.70-6.10) M/uL Hgb 13.2 L (14.0-18.0) g/dl Hct 40.2 L (42.0-52.0) % MCV 94.8 (80.0-100.0) fL MCH 31.1 (25.0-34.0) pg MCHC 32.8 (32.0-36.0) g/dL RDW Std Deviation 48.2 H (36.4-46.3) fL RDW Coeff of Alan 14.0 (11.5-14.5) % Plt Count 185 (130-400) K/uL MPV 9.5 (9.4-12.4) fL Immature Gran % (Auto) 0.3 % Neut % (Auto) 84.9 % Lymph % (Auto) 7.6 % Spencer % (Auto) 6.2 % Eos % (Auto) 0.5 % Baso % (Auto) 0.5 % Neut # (Auto) 9.10 H (1.40-6.50) K/uL Lymph # (Auto) 0.81 L (1.20-3.40) K/uL Spencer # (Auto) 0.66 H (0.11-0.59) K/uL Eos # (Auto) 0.05 (0.00-0.50) K/uL Baso # (Auto) 0.05 (0.00-0.20) K/uL Immature Gran # (Auto) 0.03 (0.01-0.20) K/uL Sodium 137 (136-145) mmol/L Potassium 3.6 (3.5-5.1) mmol/L Chloride 101 (98-107) mmol/L Carbon Dioxide 28 (21-32) mmol/L Anion Gap 8 (3-11) BUN 14 (6-23) mg/dl Creatinine 1.15 (0.6-1.4) mg/dl Est Cr Clr Drug Dosing 50.0 ml/min Est GFR ( Amer) 67.4 ml/min Est GFR (Non-Af Amer) 58.1 ml/min BUN/Creatinine Ratio 12.2 (10-20) Glucose 134 H (70-99(Fasting)) mg/dl Lactate (0.4-2.0) mmol/L Calcium 9.2 (8.6-10.3) mg/dl Magnesium 1.7 (1.7-2.4) mg/dl Total Bilirubin 0.5 (0.2-1.0) mg/dl Direct Bilirubin 0.1 (0-0.2) mg/dl AST 19 (13-39) U/L ALT 11 (7-52) U/L Alkaline Phosphatase 124 H (34-104) U/L Total Protein 7.5 (6.0-8.3) gm/dl Albumin 4.3 (3.4-5.0) gm/dl Procalcitonin < 0.05 (0-0.5) ng/ml Urine Color Urine Appearance (Clear) Urine pH (4.5-7.5) Ur Specific Morehouse (1.000-1.030) Urine Protein (Negative) Urine Glucose (UA) (Negative) Urine Ketones (Negative) Urine Blood (Negative) Urine Nitrite (Negative) Urine Bilirubin (Negative) Urine Urobilinogen (Negative) Ur Leukocyte Esterase (Negative) Urine WBC (Auto) (0-5) /hpf Urine RBC (Auto) (0-4) /hpf U Hyaline Cast (Auto) (0-5) /lpf U Epithel Cells (Auto) (0-5) /lpf Urine Bacteria (Auto) (Negative) Adenovirus (PCR) (NotDetected) Anaplasma Smear See Comment Babesia Smear See Comment B. pertussis DNA (PCR) (NotDetected) B.parapertussis DNA PCR (NotDetected) Lyme Disease IgG Ab Negative (Negative) Lyme Disease IgM Ab Negative (Negative) C. pneumoniae DNA (PCR) (NotDetected) Coronavirus OC43 (PCR) (NotDetected) Coronavirus HKU1 (PCR) (NotDetected) Coronavirus 229E (PCR) (NotDetected) SARS-CoV-2 (PCR) (NotDetected) Coronavirus NL63 (PCR) (NotDetected) Human Metapneumovir PCR (NotDetected) Influenza Type A (PCR) (NotDetected) Influenza Type B (PCR) (NotDetected) M. pneumoniae (PCR) (NotDetected) Parainfluenza 1 (PCR) (NotDetected) Parainfluenza 2 (PCR) (NotDetected) Parainfluenza 3 (PCR) (NotDetected) Parainfluenza 4 (PCR) (NotDetected) RSV (PCR) (NotDetected) Entero/Rhino (PCR) (NotDetected) 06/18/23 06/18/23 06/18/23 Range/Units 18:20 18:20 19:55 WBC (4.8-10.8) K/ul RBC (4.70-6.10) M/uL Hgb (14.0-18.0) g/dl Hct (42.0-52.0) % MCV (80.0-100.0) fL MCH (25.0-34.0) pg MCHC (32.0-36.0) g/dL RDW Std Deviation (36.4-46.3) fL RDW Coeff of Alan (11.5-14.5) % Plt Count (130-400) K/uL MPV (9.4-12.4) fL Immature Gran % (Auto) % Neut % (Auto) % Lymph % (Auto) % Spencer % (Auto) % Eos % (Auto) % Baso % (Auto) % Neut # (Auto) (1.40-6.50) K/uL Lymph # (Auto) (1.20-3.40) K/uL Spencer # (Auto) (0.11-0.59) K/uL Eos # (Auto) (0.00-0.50) K/uL Baso # (Auto) (0.00-0.20) K/uL Immature Gran # (Auto) (0.01-0.20) K/uL Sodium (136-145) mmol/L Potassium (3.5-5.1) mmol/L Chloride (98-107) mmol/L Carbon Dioxide (21-32) mmol/L Anion Gap (3-11) BUN (6-23) mg/dl Creatinine (0.6-1.4) mg/dl Est Cr Clr Drug Dosing ml/min Est GFR ( Amer) ml/min Est GFR (Non-Af Amer) ml/min BUN/Creatinine Ratio (10-20) Glucose (70-99(Fasting)) mg/dl Lactate 1.2 (0.4-2.0) mmol/L Calcium (8.6-10.3) mg/dl Magnesium (1.7-2.4) mg/dl Total Bilirubin (0.2-1.0) mg/dl Direct Bilirubin (0-0.2) mg/dl AST (13-39) U/L ALT (7-52) U/L Alkaline Phosphatase (34-104) U/L Total Protein (6.0-8.3) gm/dl Albumin (3.4-5.0) gm/dl Procalcitonin (0-0.5) ng/ml Urine Color Yellow Urine Appearance Clear (Clear) Urine pH 6.5 (4.5-7.5) Ur Specific Morehouse 1.019 (1.000-1.030) Urine Protein Trace H (Negative) Urine Glucose (UA) Negative (Negative) Urine Ketones 1+ H (Negative) Urine Blood Negative (Negative) Urine Nitrite Negative (Negative) Urine Bilirubin Negative (Negative) Urine Urobilinogen Negative (Negative) Ur Leukocyte Esterase Negative (Negative) Urine WBC (Auto) 0 (0-5) /hpf Urine RBC (Auto) 0-4 (0-4) /hpf U Hyaline Cast (Auto) 0 (0-5) /lpf U Epithel Cells (Auto) 0-5 (0-5) /lpf Urine Bacteria (Auto) Negative (Negative) Adenovirus (PCR) Not Detected (NotDetected) Anaplasma Smear Babesia Smear B. pertussis DNA (PCR) Not Detected (NotDetected) B.parapertussis DNA PCR Not Detected (NotDetected) Lyme Disease IgG Ab (Negative) Lyme Disease IgM Ab (Negative) C. pneumoniae DNA (PCR) Not Detected (NotDetected) Coronavirus OC43 (PCR) Not Detected (NotDetected) Coronavirus HKU1 (PCR) Not Detected (NotDetected) Coronavirus 229E (PCR) Not Detected (NotDetected) SARS-CoV-2 (PCR) DETECTED A* (NotDetected) Coronavirus NL63 (PCR) Not Detected (NotDetected) Human Metapneumovir PCR Not Detected (NotDetected) Influenza Type A (PCR) Not Detected (NotDetected) Influenza Type B (PCR) Not Detected (NotDetected) M. pneumoniae (PCR) Not Detected (NotDetected) Parainfluenza 1 (PCR) Not Detected (NotDetected) Parainfluenza 2 (PCR) Not Detected (NotDetected) Parainfluenza 3 (PCR) Not Detected (NotDetected) Parainfluenza 4 (PCR) Not Detected (NotDetected) RSV (PCR) Not Detected (NotDetected) Entero/Rhino (PCR) Not Detected (NotDetected) Administered Medications Discontinued Medications Albuterol (Albut/Ipratrop 3mg/0.5mg Neb 3 Ml Vial) 3 ml NEB NOW STA; Protocol Stop: 06/18/23 19:41 Last Admin: 06/18/23 19:50 Dose: 3 ml Documented By: KEVIN Dexamethasone Sodium Phosphate (DexamethasonePf 10 Mg/Ml Vial) 6 mg IV NOW ONE Stop: 06/18/23 20:05 Last Admin: 06/18/23 20:21 Dose: 6 mg Documented By: NANCY Sodium Chloride (Nss) 500 mls @ 999 mls/hr IV .Q31M MARISA Stop: 06/18/23 18:45 Last Infusion: 06/18/23 19:57 Dose: 0 mls/hr Documented By: Admin: 06/18/23 18:23 Dose: 999 mls/hr Documented By: JAYDEN Cefepime HCl (Maxipime) 2,000 mg in 20 mls @ 5 mls/min IV NOW STA; Protocol Stop: 06/18/23 18:09 Last Admin: 06/18/23 18:23 Dose: 5 mls/min Documented By: JAYDEN Sodium Chloride (Nss) 500 mls @ 999 mls/hr IV .Q31M ONE Stop: 06/18/23 19:52 Last Infusion: 06/18/23 22:22 Dose: 0 mls/hr Documented By: Admin: 06/18/23 19:52 Dose: 999 mls/hr Documented By: KEVIN Imaging Data My Impression: Chest x-ray per my review: There are some chronic changes, no pneumonia or pneumothorax, no CHF. Discharge Plan Visit Data Chief Complaint: Illness Stated Complaint: ILLNESS X1 DAY - WEAK AND NAUSEATED ED Provider: Branden Jeronimo Discharge Problem: Weakness, Flu-like symptoms, SOB (shortness of breath), COVID-19 Patient Disposition: Admitted As Inpatient Condition: Fair Forms Stand Alone Forms: My [facility] Prescriptions Prescriptions: No Action (DME) Oxygen Home Liters Per Minute See Rx Instructions .ROUTE .MEDSUPPLY Qty: 2 0RF Rx Instructions: Home O2: 2LPM via Nasal cannula during sleep. Provide w/ humidification magnesium oxide 400 mg magnesium capsule 400 mg PO QAM Qty: 0 telmisartan [Micardis] 40 mg tablet 40 mg PO QAM Qty: 90 3RF metoprolol succinate [Toprol XL] 50 mg tablet extended release 24 hr 50 mg PO QAM Qty: 90 3RF celecoxib [Celebrex] 200 mg capsule 200 mg PO QAM Qty: 90 3RF levalbuterol HCl [Xopenex] 1.25 mg/3 mL solution for nebulization 1.25 mg INHALATION Q4 PRN (Reason: Shortness Of Breath) Qty: 180 5RF simvastatin 20 mg tablet 20 mg PO DAILY 90 Days Qty: 90 2RF montelukast [Singulair] 10 mg tablet 10 mg PO HS Qty: 90 3RF (DME) Flutter Valve Device See Rx Instructions .MEDSUPPLY Qty: 1 0RF Rx Instructions: Use it every 6 hours when awake. aspirin 81 mg tablet,delayed release (DR/EC) 81 mg PO DAILY (DME) nebulizers Misc See Rx Instructions .ROUTE .MEDSUPPLY Qty: 1 0RF Rx Instructions: Q 4HR WITH TUBING & SUPPLIES - DX: COPD finasteride 5 mg tablet 5 mg PO DAILY Qty: 90 3RF sildenafil 100 mg tablet 100 mg PO DAILY PRN (Reason: sexual activity) Qty: 20 11RF Rx Instructions: administer 30 minutes to 4 hours before activity calcium carbonate [Calcium 600] 600 mg calcium (1,500 mg) tablet 600 mg PO DAILY Breztri Aerosphere 160-9-4.8 mcg/actuation HFA aerosol inhaler 2 inh inhalation BID Qty: 10.7 12RF albuterol sulfate [Ventolin HFA] 90 mcg/actuation HFA aerosol inhaler 2 inh inhalation Q4H PRN (Reason: shortness of breath) Qty: 8.5 3RF epinephrine [EpiPen 2-Marco Antonio] 0.3 mg/0.3 mL auto-injector 0.3 mg IM UD PRN (Reason: bronchodilation) Rx Instructions: 0.3 mg IM Use as Directed PRN; until response carried when did allergy injections Multivitamin 50 Plus Tablet 1 tab PO DAILY docusate sodium [Colace] 100 mg capsule 100 mg PO BID PRN (Reason: Constipation) clopidogrel 75 mg Tablet 75 mg PO QAM 30 Days Qty: 30 3RF famotidine [Pepcid] 20 mg Tablet 20 mg PO HS Systane (PF) 0.4-0.3 % Dropperette 1 drp OPB BID potassium 99 mg Tablet 99 mg PO DAILY pantoprazole 40 mg tablet,delayed release (DR/EC) 40 mg PO QAM Eylea 2 mg/0.05 mL Solution 0 mg INTRAVITREAL .[id number] gabapentin 100 mg capsule 100 mg PO TID Referrals Referrals: Hollie Proctor MD [Primary Care Provider] -
[2023-06-18 18:39] LABS: Basophils # (auto) 0.05 K/uL (0.00-0.20); Basophils % (auto) 0.5 %; Eosinophils # (auto) 0.05 K/uL (0.00-0.50); Eosinophils % (auto) 0.5 %; Hematocrit (blood only) 40.2 % (42.0-52.0); Hemoglobin 13.2 g/dl (14.0-18.0); Immature Granulocytes # (auto) 0.03 K/uL (0.01-0.20); Immature Granulocytes % (auto) 0.3 %; Lymphocytes # (auto) 0.81 K/uL (1.20-3.40); Lymphocytes % (auto) 7.6 %; Mean Corpuscular Hemoglobin 31.1 pg (25.0-34.0); Mean Corpuscular Hgb Conc 32.8 g/dL (32.0-36.0); Mean Corpuscular Volume 94.8 fL (80.0-100.0); Mean Platelet Volume 9.5 fL (9.4-12.4); Monocytes # (auto) 0.66 K/uL (0.11-0.59); Monocytes % (auto) 6.2 %; Neutrophils % (auto) 84.9 %; Platelet Count 185 K/uL (130-400); RDW Standard Deviation 48.2 fL (36.4-46.3); Red Blood Count 4.24 M/uL (4.70-6.10)
[2023-06-18 19:01] LABS: Albumin Level 4.3 gm/dl (3.4-5.0); BUN Creatinine Ratio 12.2 (10-20); Bilirubin Direct 0.1 mg/dl (0-0.2); Bilirubin,Total 0.5 mg/dl (0.2-1.0); Calcium 9.2 mg/dl (8.6-10.3); Est GFR (African American) 67.4 ml/min; Est GFR (Non-African American) 58.1 ml/min; Magnesium 1.7 mg/dl (1.7-2.4); Potassium 3.6 mmol/L (3.5-5.1); Total Protein 7.5 gm/dl (6.0-8.3)
[2023-06-18 19:20] LABS: Procalcitonin < 0.05 ng/ml (0-0.5)
[2023-06-18] MEDS ORDERED: SODIUM CHLORIDE 0.9% 500 ML IV ONE (19:22)
[2023-06-18 19:28] LABS: Lyme Ab IgG w/WB Rflx Negative (Negative); Lyme Ab IgM w/WB Rflx Negative (Negative)
[2023-06-18 19:40] LABS: Adenovirus PCR Not Detected (NotDetected); Bordetella parapertussis PCR Not Detected (NotDetected); Bordetella pertussis PCR Not Detected (NotDetected); Chlamydia pneumoniae PCR Not Detected (NotDetected); Coronavirus 229E PCR Not Detected (NotDetected); Coronavirus HKU1 PCR Not Detected (NotDetected); Coronavirus NL63 PCR Not Detected (NotDetected); Coronavirus OC43PCR Not Detected (NotDetected); Human Metapneumovirus PCR Not Detected (NotDetected); Influenza A PCR Not Detected (NotDetected); Influenza B PCR Not Detected (NotDetected); Mycoplasma pneumoniae PCR Not Detected (NotDetected); Parainfluenza Virus 1 PCR Not Detected (NotDetected); Parainfluenza Virus 2 PCR Not Detected (NotDetected); Parainfluenza Virus 3 PCR Not Detected (NotDetected); Parainfluenza Virus 4 PCR Not Detected (NotDetected); Respiratory Syncytial VirusPCR Not Detected (NotDetected); Rhinovirus/Enterovirus PCR Not Detected (NotDetected)
[2023-06-18] MEDS ORDERED: ALBUT/IPRATROP 3MG/0.5MG NEB 3 ML VIAL NEB STA (19:40)
[2023-06-18 19:49] LABS: Coronavirus CoV-2 (COVID19)PCR DETECTED (NotDetected)
[2023-06-18] MEDS ORDERED: dexAMETHasone**PF** 10 MG/ML VIAL IV ONE (20:04)
[2023-06-18 20:08] LABS: Appearance Urine Clear (Clear); Bacteria Urine Automated Negative (Negative); Bilirubin Urine Negative (Negative); Blood Urine Negative (Negative); Cast Urine Automated 0 /lpf (0-5); Color Urine Yellow; Epithelial Cell Urine Auto 0-5 /lpf (0-5); Glucose Urine UA Negative (Negative); Ketones Urine 1+ (Negative); Leukocyte Esterase Urine Negative (Negative); Nitrite Urine Negative (Negative); Protein Urine Trace (Negative); RBC Urine Automated 0-4 /hpf (0-4); Specific Gravity Urine 1.019 (1.000-1.030); Urobilinogen Urine Negative (Negative); WBC Urine Automated 0 /hpf (0-5); pH Urine 6.5 (4.5-7.5)
--- NOTE | 2023-06-18 21:58 | History & Physical Report ---
Date of Service June 18, 2023 Assessment & Plan (1) COVID-19: Plan: Adequate oxygenation. Patient afebrile. -Admit to medical -Maintain isolation precautions -Monitor O2 levels - is interested in starting patient on Paxlovid - she may contact her PCP and get a prescription (2) COPD (chronic obstructive pulmonary disease): Plan: Diffuse end-expiratory wheezing. Suspect COPD exacerbation -Solumedrol 40mg IV TID -Combivent q 4 hours -Albuterol PRN -Continue Budesonide/Glycopyrolate/Formoterol inhaler or formulary equivalent (3) Hypertension: Plan: -Continue Telmisartan -Continue Metoprolol (4) GERD (gastroesophageal reflux disease): Plan: -Continue Protonix 40mg po daily -Continue Famotidine 20mg po qHS (5) BPH (benign prostatic hyperplasia): Plan: -Continue Finasteride History of Present Illness Chief Complaint: Covid-19, weakness Primary Care Provider: Hollie Proctor MD Ian George is an 82yo male with h/o dementia, A-fib not on anticoagulation, HTN, GERD, spinal stenosis, COPD and nocturnal hypoxia (on 2 L NC HS as needed) presenting with Covid-19 infection and weakness Patient with nausea and leg weakness x1 day as well as cough and generalized weakness. He is unable to walk or care for himself at this time due to weakness. Found to be POSITIVE for Covid-19 in the ER. He has had no prior infection to his knowledge and is UTD on vaccinations and boosters. Saturations adequate on RA in the ER. No respiratory distress ER Course: Dexamethasone 6mg IV Albuterol Neb Cefepime 2gm NSS Allergies Allergy/AdvReac Type Severity Reaction Status Date / Time No Known Allergies Allergy Verified 06/18/23 21:43 Home Medications Medication Instructions Recorded Confirmed Type Oxygen Home #2 L 12/08/19 06/18/23 Rx nebulizers #1 ea 09/07/20 06/18/23 Rx famotidine 20 mg tablet (Pepcid) 20 mg PO HS 06/03/21 06/18/23 History peg 400-propylene glycol (PF) 0.4 1 drp OPB BID 06/03/21 06/18/23 History %-0.3 % eye drops in a dropperette (Systane (PF)) Flutter Valve #1 ea 12/29/21 06/18/23 Rx magnesium oxide 400 mg PO QAM #0 caps 01/16/22 06/18/23 History epinephrine 0.3 mg/0.3 mL 0.3 mg IM UD PRN bronchodilation 04/20/22 06/18/23 History injection, auto-injector (EpiPen 2-Marco Antonio) [id number] 1 tab PO DAILY 04/24/22 06/18/23 History tablet (Multivitamin 50 Plus tablet) telmisartan 40 mg tablet (Micardis) 40 mg PO QAM #90 tabs 05/28/22 06/18/23 Rx metoprolol succinate 50 mg 50 mg PO QAM #90 tabs 06/12/22 06/18/23 Rx tablet,extended release 24 hr (Toprol XL) celecoxib 200 mg capsule (Celebrex) 200 mg PO QAM #90 caps 06/15/22 06/18/23 Rx calcium carbonate 600 mg calcium 600 mg PO DAILY 06/25/22 06/18/23 History (1,500 mg) tablet (Calcium) levalbuterol HCl 1.25 mg/3 mL 1.25 mg (3 mL) inhalation Q4 PRN 06/29/22 06/18/23 Rx solution for nebulization (Xopenex) Shortness Of Breath #180 mL docusate sodium 100 mg capsule 100 mg PO BID PRN Constipation 08/03/22 06/18/23 History (Colace) clopidogrel 75 mg tablet 75 mg PO QAM 30 days #30 tabs 08/10/22 06/18/23 Rx finasteride 5 mg tablet 5 mg PO DAILY #90 tabs 09/19/22 06/18/23 Rx sildenafil 100 mg tablet 100 mg PO DAILY PRN sexual 09/19/22 06/18/23 Rx activity #20 tabs albuterol sulfate 90 mcg/actuation 2 inh inhalation Q4H PRN shortness 01/02/23 06/18/23 Rx aerosol inhaler (Ventolin HFA) of breath #8.5 grams budesonide 160 mcg-glycopyr 9 2 inh inhalation BID COPD #10.7 01/02/23 06/18/23 Rx mcg-formot 4.8 mcg/actuation HFA grams inhaler (Breztri Aerosphere) aspirin 81 mg tablet,delayed 81 mg PO DAILY 02/07/23 06/18/23 History release simvastatin 20 mg tablet 20 mg PO DAILY 90 days #90 tabs 02/07/23 06/18/23 Rx montelukast 10 mg tablet 10 mg PO HS #90 tabs 06/14/23 06/18/23 Rx (Singulair) aflibercept 2 mg/0.05 mL 0 mg intravitreal .[id number] 06/18/23 06/18/23 History intravitreal solution for injection (Eylea) gabapentin 100 mg capsule 100 mg PO TID 06/18/23 06/18/23 History pantoprazole 40 mg tablet,delayed 40 mg PO QAM 06/18/23 06/18/23 History release potassium 99 mg tablet 99 mg PO DAILY 06/18/23 06/18/23 History Past Med/Surg History Medical History (Updated 06/19/23 @ 02:09 by Elli Roth DO) Anemia Aneurysm of infrarenal abdominal aorta 04/18/2022 - 7cm x 6.7 cm Atrial fibrillation dx 7 yrs ago Benign localized prostatic hyperplasia with lower urinary tract symptoms (LUTS) Carotid artery stenosis CKD (chronic kidney disease) COPD (chronic obstructive pulmonary disease) Dementia Erectile dysfunction GERD (gastroesophageal reflux disease) Hearing loss History of tobacco use Hypertension Implantable loop recorder present dr jacobson - 3 yrs ago Insomnia Ischemia of toe Neutrophilic leukocytosis Nocturnal hypoxia o2 2l at hs Osteoarthritis Syncopal episodes summer 2020 Surgical History History of left hip replacement History of right hip replacement Hx of appendectomy Hx of colonoscopy S/P AAA repair using bifurcation graft S/P endovascular aneurysm repair Family History Other Coronary heart disease Diabetes Social History Smoking Status: Former smoker Tobacco Type: Cigarettes Age Started Using Tobacco: 18; packs per day: 1; Cigarettes Per Day: 1pack; Second Hand Exposure: No; Do You Dip or Chew Tobacco: No; Hx Alcohol Use: No Hx Substance Use: No Preferred Language: [place] Communication Ability: Effective Visual Impairment: No Limitations Pie Dough Roller Required: No Beliefs That Will Affect Care: None marital status: Current Living Situation: Spouse current occupational status: retired How many Children do You have: 1 other: [employer] from [id number]. Discharge rank E4. No combat injury Feels Safe at Home: Yes Dental Care, Regularly: No Seatbelt Use: always Sunscreen Use: Yes Assistive Devices: None Review of Systems Review of Systems: All systems reviewed & are unremarkable except as noted in HPI & below Physical Exam Physical Exam: General: patient resting comfortably, NAD, non-toxic in appearance, AA&O x 2 Skin: warm, dry, intact, no rashes or lesions HEENT: NC/AT, PERRL, EOMI, anicteric sclera, conjunctiva without injection, external ear normal to inspection and nontender, nares patent, moist mucus membranes, dentition intact, no oropharyngeal lesions, neck supple, trachea midline, no LAD, no thyromegaly, no JVD Heart: +S1/S2, regular, no m/r/g Lungs: equal air entry bilaterally, diffuse wheezing Abd: +BS, soft, NT/ND, no masses/organomegaly/ascites Ext: warm, 2+ pulses in UE/LE bilaterally, no clubbing/cyanosis or edema Neuro: nonfocal, patient AA&O x 2, speech intact, no facial droop, moving all extremities on command with equal strength 5/5 Results & Data Results & Data Vital Signs (Past 12 Hours) Vital Signs Temp Pulse Resp BP Pulse Ox O2 Del Method O2 Flow Rate 06/18/23 20:38 163/106 H 06/18/23 20:38 108 H 24 06/18/23 20:31 108 H 26 H 06/18/23 20:30 112 H 24 06/18/23 20:15 104 H 29 H 06/18/23 20:01 98 H 23 06/18/23 20:01 174/95 H 06/18/23 20:00 92 H 33 H 06/18/23 19:45 95 H 19 95 06/18/23 19:30 92 H 38 H 96 06/18/23 19:30 169/102 H 06/18/23 19:15 92 H 30 H 94 06/18/23 19:00 93 H 25 H 06/18/23 19:00 170/95 H 06/18/23 18:45 94 H 38 H 96 Room Air 09/19/23 18:30 95 H 40 H 93 06/18/23 18:30 158/92 H 06/18/23 18:15 95 H 28 H 06/18/23 18:00 99 H 33 H 93 06/18/23 18:00 141/85 H 06/18/23 17:46 101 H 23 96 06/18/23 18:07 96 Room Air 0 06/18/23 17:45 102 H 06/18/23 17:44 37.3 C 102 H 26 H 129/95 96 Room Air Laboratory Results Laboratory Results WBC 10.70 K/ul (4.8-10.8) 06/18/23 17:42 RBC 4.24 M/uL (4.70-6.10) L 06/18/23 17:42 Hgb 13.2 g/dl (14.0-18.0) L 06/18/23 17:42 Hct 40.2 % (42.0-52.0) L 06/18/23 17:42 MCV 94.8 fL (80.0-100.0) 06/18/23 17:42 MCH 31.1 pg (25.0-34.0) 06/18/23 17:42 MCHC 32.8 g/dL (32.0-36.0) 06/18/23 17:42 RDW Std Deviation 48.2 fL (36.4-46.3) H 06/18/23 17:42 RDW Coeff of Alan 14.0 % (11.5-14.5) 06/18/23 17:42 Plt Count 185 K/uL (130-400) 06/18/23 17:42 MPV 9.5 fL (9.4-12.4) 06/18/23 17:42 Immature Gran % (Auto) 0.3 % 06/18/23 17:42 Neut % (Auto) 84.9 % 06/18/23 17:42 Lymph % (Auto) 7.6 % 06/18/23 17:42 [place] % (Auto) 6.2 % 06/18/23 17:42 Eos % (Auto) 0.5 % 06/18/23 17:42 Baso % (Auto) 0.5 % 06/18/23 17:42 Neut # (Auto) 9.10 K/uL (1.40-6.50) H 06/18/23 17:42 Lymph # (Auto) 0.81 K/uL (1.20-3.40) L 06/18/23 17:42 [place] # (Auto) 0.66 K/uL (0.11-0.59) H 06/18/23 17:42 Eos # (Auto) 0.05 K/uL (0.00-0.50) 06/18/23 17:42 Baso # (Auto) 0.05 K/uL (0.00-0.20) 06/18/23 17:42 Immature Gran # (Auto) 0.03 K/uL (0.01-0.20) 06/18/23 17:42 Sodium 137 mmol/L (136-145) 06/18/23 17:42 Potassium 3.6 mmol/L (3.5-5.1) 06/18/23 17:42 Chloride 101 mmol/L (98-107) 06/18/23 17:42 Carbon Dioxide 28 mmol/L (21-32) 06/18/23 17:42 Anion Gap 8 (3-11) 06/18/23 17:42 BUN 14 mg/dl (6-23) 06/18/23 17:42 Creatinine 1.15 mg/dl (0.6-1.4) 06/18/23 17:42 Est Cr Clr Drug Dosing 50.0 ml/min 06/18/23 17:42 Est GFR ( Amer) 67.4 ml/min 06/18/23 17:42 Est GFR (Non-Af Amer) 58.1 ml/min 06/18/23 17:42 BUN/Creatinine Ratio 12.2 (10-20) 06/18/23 17:42 Glucose 134 mg/dl (70-99(Fasting)) H 06/18/23 17:42 Lactate 1.2 mmol/L (0.4-2.0) 06/18/23 18:20 Calcium 9.2 mg/dl (8.6-10.3) 06/18/23 17:42 Magnesium 1.7 mg/dl (1.7-2.4) 06/18/23 17:42 Total Bilirubin 0.5 mg/dl (0.2-1.0) 06/18/23 17:42 Direct Bilirubin 0.1 mg/dl (0-0.2) 06/18/23 17:42 AST 19 U/L (13-39) 06/18/23 17:42 ALT 11 U/L (7-52) 06/18/23 17:42 Alkaline Phosphatase 124 U/L (34-104) H 06/18/23 17:42 Total Protein 7.5 gm/dl (6.0-8.3) 06/18/23 17:42 Albumin 4.3 gm/dl (3.4-5.0) 06/18/23 17:42 Procalcitonin < 0.05 ng/ml (0-0.5) 06/18/23 17:42 Urine Color Yellow 06/18/23 19:55 Urine Appearance Clear (Clear) 06/18/23 19:55 Urine pH 6.5 (4.5-7.5) 06/18/23 19:55 Ur Specific [place] 1.019 (1.000-1.030) 06/18/23 19:55 Urine Protein Trace (Negative) H 06/18/23 19:55 Urine Glucose (UA) Negative (Negative) 06/18/23 19:55 Urine Ketones 1+ (Negative) H 06/18/23 19:55 Urine Blood Negative (Negative) 06/18/23 19:55 Urine Nitrite Negative (Negative) 06/18/23 19:55 Urine Bilirubin Negative (Negative) 06/18/23 19:55 Urine Urobilinogen Negative (Negative) 06/18/23 19:55 Ur Leukocyte Esterase Negative (Negative) 06/18/23 19:55 Urine WBC (Auto) 0 /hpf (0-5) 06/18/23 19:55 Urine RBC (Auto) 0-4 /hpf (0-4) 06/18/23 19:55 U Hyaline Cast (Auto) 0 /lpf (0-5) 06/18/23 19:55 U Epithel Cells (Auto) 0-5 /lpf (0-5) 06/18/23 19:55 Urine Bacteria (Auto) Negative (Negative) 06/18/23 19:55 Adenovirus (PCR) Not Detected (NotDetected) 06/18/23 18:20 Anaplasma Smear See Comment 06/18/23 17:42 Babesia Smear See Comment 06/18/23 17:42 B. pertussis DNA (PCR) Not Detected (NotDetected) 06/18/23 18:20 B.parapertussis DNA PCR Not Detected (NotDetected) 06/18/23 18:20 Lyme Disease IgG Ab Negative (Negative) 06/18/23 17:42 Lyme Disease IgM Ab Negative (Negative) 06/18/23 17:42 C. pneumoniae DNA (PCR) Not Detected (NotDetected) 06/18/23 18:20 Coronavirus OC43 (PCR) Not Detected (NotDetected) 06/18/23 18:20 Coronavirus HKU1 (PCR) Not Detected (NotDetected) 06/18/23 18:20 Coronavirus 229E (PCR) Not Detected (NotDetected) 06/18/23 18:20 SARS-CoV-2 (PCR) DETECTED (NotDetected) A* 06/18/23 18:20 Coronavirus NL63 (PCR) Not Detected (NotDetected) 06/18/23 18:20 Human Metapneumovir PCR Not Detected (NotDetected) 06/18/23 18:20 Influenza Type A (PCR) Not Detected (NotDetected) 06/18/23 18:20 Influenza Type B (PCR) Not Detected (NotDetected) 06/18/23 18:20 M. pneumoniae (PCR) Not Detected (NotDetected) 06/18/23 18:20 Parainfluenza 1 (PCR) Not Detected (NotDetected) 06/18/23 18:20 Parainfluenza 2 (PCR) Not Detected (NotDetected) 06/18/23 18:20 Parainfluenza 3 (PCR) Not Detected (NotDetected) 06/18/23 18:20 Parainfluenza 4 (PCR) Not Detected (NotDetected) 06/18/23 18:20 RSV (PCR) Not Detected (NotDetected) 06/18/23 18:20 Entero/Rhino (PCR) Not Detected (NotDetected) 06/18/23 18:20 Code Status & VTE Plan VTE Prophylaxis Plan VTE Prophylaxis will be ordered: Yes PG Care Time/CCT Total # of Minutes Spent Total Time Spent with Patient: Total time spent is greater than 50% in coordination of care (as documented) at patient's floor/unit and/or counseling patient: Coding Level of Care Code 37641 INT INP/OBS CARE Diagnoses COVID-19 U07.1 COPD (chronic obstructive pulmonary disease) J44.9 Hypertension I10 Hypertension type: essential hypertension GERD (gastroesophageal reflux disease) K21.9 BPH (benign prostatic hyperplasia) N40.0 (3) Hypertension Hypertension type: essential hypertension Qualified Code(s): I10 - Essential (primary) hypertension
[2023-06-19] MEDS ORDERED: DOCUSATE SODIUM 100 MG CAP PO PRN (03:08)
[2023-06-19] MEDS ORDERED: ALBUTEROL HFA 8 GM INHALER INH PRN (03:08)
[2023-06-19] MEDS ORDERED: ONDANSETRON INJ 2 MG/ML 2 ML VIAL IV PRN (03:08)
[2023-06-19] MEDS ORDERED: ACETAMINOPHEN 325 MG TAB PO PRN (03:08)
[2023-06-19] MEDS: methylPREDNISolone 40 MG in SYRINGE 0 ML IV SCH ×2 (05:31→14:09)
[2023-06-19] MEDS ORDERED: IPRATROPIUM BROMIDE HFA INHALER INH SCH (07:00)
[2023-06-19] MEDS ORDERED: ALBUTEROL HFA 8 GM INHALER INH SCH (07:00)
--- NOTE | 2023-06-19 07:11 | XRay Report ---
XR chest 1V portable CLINICAL HISTORY: Sepsis TECHNIQUE: Single frontal radiograph of the chest was obtained. Comparison: Comparison is made to chest radiograph 04/26/2022 FINDINGS: Loop recorder is noted. Calcified aortic knob is seen. The lungs are clear. No evidence of pleural ef fusion or pneumothorax. IMPRESSION: No acute abnormalities and in particular no radiographic evidence of pneumonia. ACT 112: Negative or not required by law. Electronically signed by: Altaf Crowell M.D. 06/19/2023 7:10 AM
[2023-06-19] MEDS: GABAPENTIN 100 MG CAP PO SCH ×2 (08:00→14:02)
[2023-06-19 08:15] LABS: Hematocrit (blood only) 36.3 % (42.0-52.0); Hemoglobin 12.1 g/dl (14.0-18.0); Mean Corpuscular Hemoglobin 30.9 pg (25.0-34.0); Mean Corpuscular Hgb Conc 33.3 g/dL (32.0-36.0); Mean Corpuscular Volume 92.6 fL (80.0-100.0); Mean Platelet Volume 9.2 fL (9.4-12.4); Platelet Count 159 K/uL (130-400); RDW Standard Deviation 47.6 fL (36.4-46.3); Red Blood Count 3.92 M/uL (4.70-6.10); White Blood Count 7.44 K/ul (4.8-10.8)
[2023-06-19 08:40] LABS: BUN Creatinine Ratio 16.2 (10-20); Calcium 8.8 mg/dl (8.6-10.3); Creatinine Clr Calc Pharmacy 56.5 ml/min; Est GFR (African American) 80.7 ml/min; Est GFR (Non-African American) 69.6 ml/min
--- NOTE | 2023-06-19 08:58 | Electrocardiogram Report ---
Test Reason : Blood Pressure : / mmHG Vent. Rate : 097 BPM Atrial Rate : 097 BPM P-R Int : 144 ms QRS Dur : 116 ms QT Int : 380 ms P-R-T Axes : 010 -52 096 degrees QTc Int : 482 ms Sinus rhythm with occasional Premature ventricular complexes Left anterior fascicular block Incomplete right bundle branch block Left ventricular hypertrophy with QRS widening Prolonged QT Abnormal ECG When compared with ECG of 04-AUG-2022 07:52, No significant change Confirmed by Carlos Yoon ([id number]) on 06/19/2023 8:58:17 AM Referred By: REFERRED SELF Confirmed By:Carlos Yoon
[2023-06-19] MEDS ORDERED: PANTOprazole 40 MG TAB PO SCH (09:00)
[2023-06-19] MEDS ORDERED: CLOPIDOGREL BISULFATE 75 MG TAB PO SCH (09:00)
[2023-06-19] MEDS ORDERED: ENOXAPARIN INJ 30 MG/0.3 ML SYR SQ SCH (09:00)
[2023-06-19] MEDS ORDERED: NON-FORMULARY MEDICATION (Budesonide-Glycopyr-Formoterol [Breztri Aerosphere] 160-9-4.8 mc INH SCH (09:00)
[2023-06-19] MEDS ORDERED: CeleBREX 200 MG CAP PO SCH (09:00)
[2023-06-19] MEDS ORDERED: UMECLIDINIUM/VILANTEROL 62.5/25MCG 7 PUFFS/INHALER INH SCH (09:00)
[2023-06-19] MEDS ORDERED: LOSARTAN POTASSIUM 50 MG TAB PO SCH (09:00)
[2023-06-19] MEDS ORDERED: FINASTERIDE 5 MG TAB PO SCH (09:00)
[2023-06-19] MEDS ORDERED: METOPROLOL SUCC 50MG EXT REL TAB PO SCH (09:00)
[2023-06-19] MEDS ORDERED: IPRATROPIUM BROMIDE/ALBUTEROL respimat INH INH SCH (09:00)
[2023-06-19] MEDS ORDERED: SIMVASTATIN 20 MG TAB PO SCH (09:00)
[2023-06-19] MEDS ORDERED: ASPIRIN 81 MG ECTAB PO SCH (09:00)
[2023-06-19] MEDS ORDERED: FLUTICASONE FUROATE 200MCG 14 PUFFS/INHALER INH SCH (09:00)
--- NOTE | 2023-06-19 09:20 | Hospitalist Progress Note ---
Date of Service June 19, 2023 Assessment & Plan (1) COVID-19: Plan: Adequate oxygenation. Patient afebrile. -Admit to medical -Maintain isolation precautions -Monitor O2 levels - is interested in starting patient on Paxlovid - she may contact her PCP and get a prescription 06/19 currently 93% on RA Isolation precautions to be maintained -- Add incentive spirometer. Sputum cx if able to produce given COPD exacerbation Lovenox SQ for DVT prophylaxis Given weakness, will also consult PT/OT, check venous doppler given afib/not on anticoagulation (per PCP, low burden, off AC per cardiology) (2) COPD (chronic obstructive pulmonary disease): Plan: Diffuse end-expiratory wheezing. Suspect COPD exacerbation -Solumedrol 40mg IV TID -Combivent q 4 hours -Albuterol PRN -Continue Budesonide/Glycopyrolate/Formoterol inhaler or formulary equivalent (3) Hypertension: Plan: -Continue Telmisartan -Continue Metoprolol (4) GERD (gastroesophageal reflux disease): Plan: -Continue Protonix 40mg po daily -Continue Famotidine 20mg po qHS (5) BPH (benign prostatic hyperplasia): Plan: -Continue Finasteride Admission and Anticipated Discharge Date Admission Date: June 18, 2023 Results & Data Results & Data Vital Signs (Past 12 Hours) Vital Signs Temp Pulse Pulse Resp BP BP BP 06/19/23 07:57 36.6 C 83 18 165/89 H 06/19/23 03:44 06/19/23 03:00 36.8 C 80 20 153/79 H 06/19/23 02:30 86 28 H 144/87 H 06/19/23 02:00 89 26 H 162/94 H 06/19/23 01:31 94 H 28 H 160/76 H 06/19/23 01:00 100 H 26 H 169/99 H 06/19/23 00:30 98 H 26 H 156/94 H 06/19/23 00:00 97 H 28 H 139/99 06/18/23 23:30 99 H 26 H 166/94 H 06/18/23 23:00 103 H 22 163/89 H 06/18/23 22:15 104 H 35 H 06/18/23 22:01 149/89 H 06/18/23 22:01 108 H 32 H 06/18/23 22:00 108 H 27 H 06/18/23 21:45 107 H 20 06/18/23 21:30 107 H 33 H 06/18/23 21:30 146/92 H 06/18/23 22:03 105 H Pulse Ox O2 Del Method 06/19/23 07:57 93 Room Air 06/19/23 03:44 Room Air 06/19/23 03:00 95 Room Air 06/19/23 02:30 95 06/19/23 02:00 94 06/19/23 01:31 94 06/19/23 01:00 95 06/19/23 00:30 94 06/19/23 00:00 94 06/18/23 23:30 94 06/18/23 23:00 92 06/18/23 22:15 91 06/18/23 22:01 06/18/23 22:01 92 06/18/23 22:00 06/18/23 21:45 92 06/18/23 21:30 91 06/18/23 21:30 06/18/23 22:03 PG Care Time/CCT Total # of Minutes Spent Total Time Spent with Patient: Total time spent is greater than 50% in coordination of care (as documented) at patient's floor/unit and/or counseling patient: Coding Diagnoses COVID-19 U07.1 COPD (chronic obstructive pulmonary disease) J44.9 Hypertension I10 Hypertension type: essential hypertension GERD (gastroesophageal reflux disease) K21.9 BPH (benign prostatic hyperplasia) N40.0 (3) Hypertension Hypertension type: essential hypertension Qualified Code(s): I10 - Essential (primary) hypertension
[2023-06-19] MEDS ORDERED: MAGNESIUM SULFATE / D5W 1 GM/100 ML BAG IV ONE (09:25)
--- NOTE | 2023-06-19 10:41 | Ultrasound Report ---
US venous doppler LE BI CLINICAL HISTORY: weakness, hx afib not on AC, +COVID TECHNIQUE: Bilateral lower extremity real-time compression venous ultrasound with Color Doppler imagi ng. Utilizing real-time ultrasonic imaging multiple real time high-resolution ultrasonic images with compression and noncompression maneuvers of the deep venous system in addition to color doppler imagi ng were performed from the common femoral vein through the proximal calf veins. COMPARISON: None available at the time of this dictation. FINDINGS/IMPRESSION: Currently there is normal compressibility of the deep venous system from the common femoral vein thro ugh the proximal calf veins. No superficial venous thrombosis is identified. ACT 112: Negative or not required by law. Electronically signed by: Altaf Crowell M.D. 06/19/2023 10:39 AM
--- NOTE | 2023-06-19 13:20 | Discharge Summary ---
Date of Service June 19, 2023 Admission HPI Per Admitting Provider Ian George is an 82yo male with h/o dementia, A-fib not on anticoagulation, HTN, GERD, spinal stenosis, COPD and nocturnal hypoxia (on 2 L NC HS as needed) presenting with Covid-19 infection and weakness Patient with nausea and leg weakness x1 day as well as cough and generalized weakness. He is unable to walk or care for himself at this time due to weakness. Found to be POSITIVE for Covid-19 in the ER. He has had no prior infection to his knowledge and is UTD on vaccinations and boosters. Saturations adequate on RA in the ER. No respiratory distress ER Course: Dexamethasone 6mg IV Albuterol Neb Cefepime 2gm NSS Admission Exam Per Admitting Provider General: patient resting comfortably, NAD, non-toxic in appearance, AA&O x 2 Skin: warm, dry, intact, no rashes or lesions HEENT: NC/AT, PERRL, EOMI, anicteric sclera, conjunctiva without injection, external ear normal to inspection and nontender, nares patent, moist mucus membranes, dentition intact, no oropharyngeal lesions, neck supple, trachea midline, no LAD, no thyromegaly, no JVD Heart: +S1/S2, regular, no m/r/g Lungs: equal air entry bilaterally, diffuse wheezing Abd: +BS, soft, NT/ND, no masses/organomegaly/ascites Ext: warm, 2+ pulses in UE/LE bilaterally, no clubbing/cyanosis or edema Neuro: nonfocal, patient AA&O x 2, speech intact, no facial droop, moving all extremities on command with equal strength 5/5 Principal Diagnosis COVID-19, weakness Discharge Exam General: WD/WN male sitting up in bed, at bedside, NAD, on room air HEENT: head normocephalic, atraumatic, mmm, trachea midline Resp: CTA, slightly diminished, no w/c/r, on room air Chest: prior sternotomy scar noted CV: Regular rate/rhythm, no significant m/r/g, no pitting edema/calf tenderness GI: +BS, soft/NT : no miller MSK/Neuro: no focal deficits, no slurred speech/facial droop, answering questions appropriately Psych: Alert to person/time/events, cooperative with exam Discharge Data Allergies Allergy/AdvReac Type Severity Reaction Status Date / Time No Known Allergies Allergy Verified 06/18/23 21:43 Consultations 06/18/23 20:18 ED Decision to Admit Stat Ordered Studies Chest X-Ray 06/18/23 18:07 XR chest 1V portable CLINICAL HISTORY: Sepsis TECHNIQUE: Single frontal radiograph of the chest was obtained. Comparison: Comparison is made to chest radiograph 04/26/2022 FINDINGS: Loop recorder is noted. Calcified aortic knob is seen. The lungs are clear. No evidence of pleural effusion or pneumothorax. IMPRESSION: No acute abnormalities and in particular no radiographic evidence of pneumonia. ACT 112: Negative or not required by law. Electronically signed by: Altaf Crowell M.D. 06/19/2023 7:10 AM Venous Doppler Study 06/19/23 09:17 US venous doppler LE BI CLINICAL HISTORY: weakness, hx afib not on AC, +COVID TECHNIQUE: Bilateral lower extremity real-time compression venous ultrasound with Color Doppler imaging. Utilizing real-time ultrasonic imaging multiple real time high-resolution ultrasonic images with compression and noncompression maneuvers of the deep venous system in addition to color doppler imaging were performed from the common femoral vein through the proximal calf veins. COMPARISON: None available at the time of this dictation. FINDINGS/IMPRESSION: Currently there is normal compressibility of the deep venous system from the common femoral vein through the proximal calf veins. No superficial venous thrombosis is identified. ACT 112: Negative or not required by law. Electronically signed by: Altaf Crowell M.D. 06/19/2023 10:39 AM Hospital Course (1) COVID-19: Remained afebrile and on room air. CXR negative for acute process Maintained adequate oxygen saturations Placed on IV steroid for possible COPD exacerbation but denied change in sputum production/no wheezing on examination During rounds, patient sitting up in bed, at bedside. Great appetite and feeling well and hopeful for dischage home. reporting she has pulse ox at home -- to continue to monitor oxygen levels/call PCP or return to ER with any drops Lovenox SQ utilize for DVT prophylaxis while inpatient PT evaluation prior to dc to ensure stable for dc given admission for weakness. Venous doppler NEGATIVE (checked given weakness/afib not on AC) Discussed w/ supervising provider and Dr Pruitt did NOT want to rx for Paxlovid and defer to PCP in follow up. No recs for continued steroids given unlikely exacerbation Call made to PCP office to discuss patient/if they would like to send Paxlovid given within window Recd to continue isolation precautions (2) COPD (chronic obstructive pulmonary disease): End expiratory wheezing on exam, given IV solumedrol and nebulizers Discussed w/ supervising provider given possible steroid dose pack at discharge --> DID NOT want to send rx steroids. TO monitor/contact PCP if any further wheezing. Has rx for all his nebulizers at home/breathing treatments Vit D 5000IU daily at dc Monitor pulse ox at home (3) Hypertension: Continued Telmisartan, metoprolol (4) GERD (gastroesophageal reflux disease): Stable, chronic Continued pepcid, protonix daily (5) BPH (benign prostatic hyperplasia): -Continued Finasteride Plan discharged home with call made to PCP about possible Paxlovid/no steroids at dc if they would like patient to receive. To continue isolation/masking/etc as discussed and monitor pulse ox. To return to ER with any worsening symtpoms Total Time Total Time Spent Total Time Spent (In Minutes): 35 Discharge Plan Discharge Items Patient Disposition: Home - Self-Care Reason For Visit: COVID-19, SOB Discharge Diagnosis: COVID-19 Condition on Discharge: Fair Goals: You have been hospitalized for an acute medical problem. During your stay at [facility], we have made an effort to correct the problem that brought you to the hospital while keeping you as comfortable as possible. Medications were used to bring your condition under control and your discharge instructions will include directions for any medications you should take after leaving the hospital. Please make sure you see your Primary Care Provider as part of your follow up plan. Activity: As commented below Non-emergency contact: Primary Care Provider Call non-emergency contact if: you have any medication questions, your symptoms worsen, your pain is not controlled and you have a fever Follow-up/Referrals: Hollie Proctor MD [Primary Care Provider] - 06/28/23 1:00 pm Diet: Heart Healthy Addtl Attending Provider Instructions: You have been hospitalized for weakness. You were found to have COVID-19. You were given IV steroids and you did not require any supplemental oxygen. As discussed with my supervising provider, they are recommending against sending you with any additional steroids or Paxlovid, and you can follow up with primary care about Paxlovid use. If you do start Paxlovid, please hold your cholesterol medication (simvastatin) You should continue to monitor your oxygen levels and if they drop below 90% you should notify your primary care provider. Please continue to use your nebulizers at home as directed. Please remain isolated for 7-10 days and wear mask whenever around other people. You can discontinue isolation on day 11 as long as not having any fevers requiring medications. Please follow up with primary care in the next 7-10 days to monitor your progress after discharge. Please return to the ER with any worsening shortness of breath, weakness, or for any other symptoms concerning for you. It has been a pleasure being a part of the medical team providing for you while you have been in the hospital. Take care! Pending Studies at Discharge: Yes Studies:: Babesia, Anaplasmosis DNA Stand-Alone Forms: [facility] Floxx, Smoking Cessation Medications and DC Order Prescriptions: New cholecalciferol (vitamin D3) [Vitamin D3] 125 mcg (5,000 unit) tablet 125 mcg PO DAILY Qty: 30 0RF Continued (DME) Oxygen Home Liters Per Minute See Rx Instructions .ROUTE .MEDSUPPLY Qty: 2 0RF Rx Instructions: Home O2: 2LPM via Nasal cannula during sleep. Provide w/ humidification magnesium oxide 400 mg magnesium capsule 400 mg PO QAM Qty: 0 telmisartan [Micardis] 40 mg tablet 40 mg PO QAM Qty: 90 3RF metoprolol succinate [Toprol XL] 50 mg tablet extended release 24 hr 50 mg PO QAM Qty: 90 3RF celecoxib [Celebrex] 200 mg capsule 200 mg PO QAM Qty: 90 3RF levalbuterol HCl [Xopenex] 1.25 mg/3 mL solution for nebulization 1.25 mg INHALATION Q4 PRN (Reason: Shortness Of Breath) Qty: 180 5RF simvastatin 20 mg tablet 20 mg PO DAILY 90 Days Qty: 90 2RF montelukast [Singulair] 10 mg tablet 10 mg PO HS Qty: 90 3RF Paxlovid 300 mg (150 mg x 2)-100 mg tablets,dose pack See Rx Instructions PO .COMPLEX Qty: 30 0RF Rx Instructions: take TWO 150 mg tablets of nirmatrelvir with ONE 100 mg tablet of ritonavir twice daily for 5 days PO (DME) Flutter Valve Device See Rx Instructions .MEDSUPPLY Qty: 1 0RF Rx Instructions: Use it every 6 hours when awake. aspirin 81 mg tablet,delayed release (DR/EC) 81 mg PO DAILY (DME) nebulizers Misc See Rx Instructions .ROUTE .MEDSUPPLY Qty: 1 0RF Rx Instructions: Q 4HR WITH TUBING & SUPPLIES - DX: COPD finasteride 5 mg tablet 5 mg PO DAILY Qty: 90 3RF sildenafil 100 mg tablet 100 mg PO DAILY PRN (Reason: sexual activity) Qty: 20 11RF Rx Instructions: administer 30 minutes to 4 hours before activity calcium carbonate [Calcium 600] 600 mg calcium (1,500 mg) tablet 600 mg PO DAILY Breztri Aerosphere 160-9-4.8 mcg/actuation HFA aerosol inhaler 2 inh inhalation BID Qty: 10.7 12RF albuterol sulfate [Ventolin HFA] 90 mcg/actuation HFA aerosol inhaler 2 inh inhalation Q4H PRN (Reason: shortness of breath) Qty: 8.5 3RF epinephrine [EpiPen 2-Marco [place]] 0.3 mg/0.3 mL auto-injector 0.3 mg IM UD PRN (Reason: bronchodilation) Rx Instructions: 0.3 mg IM Use as Directed PRN; until response carried when did allergy injections Multivitamin 50 Plus Tablet 1 tab PO DAILY docusate sodium [Colace] 100 mg capsule 100 mg PO BID PRN (Reason: Constipation) clopidogrel 75 mg Tablet 75 mg PO QAM 30 Days Qty: 30 3RF famotidine [Pepcid] 20 mg Tablet 20 mg PO HS Systane (PF) 0.4-0.3 % Dropperette 1 drp OPB BID potassium 99 mg Tablet 99 mg PO DAILY pantoprazole 40 mg tablet,delayed release (DR/EC) 40 mg PO QAM Eylea 2 mg/0.05 mL Solution 0 mg INTRAVITREAL .[id number] gabapentin 100 mg capsule 100 mg PO TID Discharge Orders: Discharge Order (Routine); Ordered 06/19/23 Ordered By: Sarah Kaye/Other Patient Handouts: COVID-19 Home Care, COVID 19 Flu Differences Admission Data Admit Date/Time: 06/18/23 21:57 Attending Provider: Tom Pruitt Admit Provider: Elli Roth Primary Care Provider: Hollie Proctor Other Providers: Elli Roth Other Interventions: Discharge Summary Assessment (RN) Last Done: 06/19/23 13:50 Supervising Physician Co-Signing Physician Notes The patient was seen by me. He is asymptomatic. Lengthy discussion with the patient and his at the bedside. The chart was reviewed. Case discussed with KAYLIN Solomon. Agree with assessment and plan. He will be discharged home today, June 19 Coding Level of Care Code 22564 INP/OBS DISCH >30 MIN Diagnoses COVID-19 U07.1 COPD (chronic obstructive pulmonary disease) J44.9 Hypertension I10 Hypertension type: essential hypertension GERD (gastroesophageal reflux disease) K21.9 BPH (benign prostatic hyperplasia) N40.0
[2023-06-19] MEDS ORDERED: MONTELUKAST SODIUM 10 MG TABLET PO SCH (21:00)
[2023-06-19] MEDS ORDERED: FAMOTIDINE 20 MG TAB PO SCH (21:00)
[2023-06-23 05:44] LABS: Babesia microti DNA Not Detected (Not Detected)
== END 2023-06-19 14:57 | disposition home or self-care (01) | DRG 178 ==
LOC: ED 17:33 → SUATTDRO 21:57 → INTOOBSV 21:57 → 3W 21:57

== ENCOUNTER 2025-07-11 22:53 | Inpatient (IN) ==
--- NOTE | 2025-07-11 22:59 | Emergency Department Note ---
Impression & Plan Acute and chronic respiratory failure with hypercapnia Admission ED Provider Note HPI: History obtained from patient. The patient is a 84-year-old gentleman with history of nonischemic cardiomyopathy, atrial fibrillation, COPD, who presents to the emergency department with a chief complaint of dyspnea. Patient arrives via EMS, he was placed on BiPAP in the field for acute respiratory failure. Per EMS report, the patient seemed to improved greatly over the past 10 minutes in transport while he was on BiPAP. They report the patient was initially cyanotic and then what appeared to be severe respiratory failure. On arrival here to the ED the patient is alert, he tells me that his shortness of breath started earlier this evening, he denies any chest pain. Patient tells me he is DNR/DNI CODE STATUS. ROS: - Per HPI Differential Diagnosis: Acute COPD exacerbation, pneumonia, viral upper respiratory infection, decompensated heart failure, ACS, PE, amongst other potential pathologies. *Outpatient medications and allergy history reviewed. PE: General: Alert, frail-appearing, mild distress secondary to increased work of breathing HEENT: Normocephalic, trachea midline Eyes: Extraocular eye movement is intact, no scleral erythema Pulmonary: Diffuse wheezing bilaterally on expiration Cardio: Regular rate and rhythm GI: Abdomen is soft to palpation : No suprapubic tenderness MSK: No evidence of trauma or malformation of the extremities, no edema Skin: No evidence of rash Neuro: Alert, no focal deficits Psychiatric: Cooperative INDEPENDENT INTERPRETATIONS: threat monitoring analyst: (As interpreted by myself): - An order was placed for continuous cardiac monitoring - Patient was noted to be in sinus rhythm with a rate of 90 EKG: (As interpreted by myself): Rate: 97 Rhythm: Sinus rhythm Intervals: RI interval prolonged at 210 ms, QRS 132 ms, QTc [address] changes: No ST elevation Time: 2301 Chest x-ray: (As interpreted by myself): No focal infiltrate Interventions provided in ED: - BiPAP, DuoNeb breathing treatment, patient received IV Solu-Medrol in the field Medical Decision Making: Shortly after the patient arrived IV was established and lab work obtained, patient was placed on quality assurance monitor final. Patient was maintained on BiPAP for his respiratory failure. This did seem to improve his symptoms dramatically per EMS report. Lab work shows no leukocytosis, hemoglobin is stable at 12.3, platelet count is normal, venous blood gas shows evidence of hypercarbic respiratory failure with a pH of 7.24 and pCO2 of 85, CMP does not show any evidence of any critical findings, troponin is negative, EKG does not show any evidence of any acute ischemic changes. Patient appears improved on my reassessment, I discussed the patient's presentation with the on-call hospitalist, Dr. Novak, the patient was placed for admission in stable condition. Patient does update his CODE STATUS following my conversation with him at the bedside, he states he is to be DNR/DNI CODE STATUS. Consultants/Discussions held with other healthcare providers: - Hospitalist, Dr. Novak Disposition discussion held by myself with: - Patient * CRITICAL CARE TIME: ( 46 ) minutes - Management of patient with hypercarbic respiratory failure requiring noninvasive positive pressure ventilation for stabilization, time spent at the bedside, interpretation of diagnostic studies, discussion with other physicians and arrangement of admission. Diagnosis: 1. Acute hypercarbic respiratory failure 2. COPD exacerbation, acute Disposition: Admission Saulo Toribio DO Emergency Medicine Past Med/Surg History Problem List (Updated 07/12/25 @ 02:12 by Saulo Toribio DO) Acute and chronic respiratory failure with hypercapnia (Acute) Acute and chronic respiratory failure with hypoxia LBBB (left bundle branch block) Nonischemic cardiomyopathy Short of breath on exertion Skin tear of left upper extremity Fatigue Lumbar radiculopathy Lumbar spinal stenosis Severe at L4-5 Lumbar facet joint syndrome Erectile dysfunction Benign localized prostatic hyperplasia with lower urinary tract symptoms (LUTS) Peripheral arteriosclerosis Osteoarthritis Nocturnal hypoxia o2 2l at hs Hypertension GERD (gastroesophageal reflux disease) BPH (benign prostatic hyperplasia) Atrial fibrillation dx 7 yrs ago Bilateral shoulder pain 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) Carotid artery stenosis Neutrophilic leukocytosis Anemia COPD (chronic obstructive pulmonary disease) (Chronic) Impaired fasting glucose (Chronic) Asthma-chronic obstructive pulmonary disease overlap syndrome Aortic aneurysm Status post placement of implantable loop recorder Ground glass opacity present on imaging of lung Insomnia Hypersomnia Ex-smoker Chronic bronchitis Aneurysm of infrarenal abdominal aorta 04/18/2022 - 7cm x 6.7 cm Medical History Vitamin D deficiency COVID-19 Weakness Ischemia of toe Implantable loop recorder present dr jacobson - 3 yrs ago Benign localized prostatic hyperplasia with lower urinary tract symptoms (LUTS) History of tobacco use Insomnia Hearing loss Erectile dysfunction Syncopal episodes summer 2020 COPD (chronic obstructive pulmonary disease) CKD (chronic kidney disease) Surgical History S/P endovascular aneurysm repair S/P AAA repair using bifurcation graft Hx of colonoscopy Hx of appendectomy History of left hip replacement History of right hip replacement Family History Other Coronary heart disease Diabetes Social History Smoking Status: Former smoker Tobacco Type: Cigarettes Age Started Using Tobacco: 18; Age Quit Using Tobacco: 75; packs per day: 1; Cigarettes Per Day: 1pack; Second Hand Exposure: No; Do You Dip or Chew Tobacco: No; Hx Alcohol Use: No Hx Substance Use: No Preferred Language: Mongolian Communication Ability: Effective Visual Impairment: No Limitations [employer] Security Required: No Beliefs That Will Affect Care: None marital status: Current Living Situation: Spouse current occupational status: retired How many Children do You have: 1 other: [employer] from [id number]. Discharge rank E4. No combat injury Feels Safe at Home: Yes Childhood Exposure to Second-Hand Smoke: No Diet: regular caffeine: Yes Dental Care, Regularly: No Physical Activity Frequency: Daily Seatbelt Use: always Sunscreen Use: Yes Assistive Devices: None Allergies Allergies Allergy/AdvReac Type Severity Reaction Status Date / Time No Known Allergies Allergy Verified 07/07/25 16:33 Home Meds Home Medications Medication Instructions Recorded Confirmed famotidine 20 mg tablet (Pepcid) 20 mg PO HS 06/03/21 07/11/25 peg 400-propylene glycol (PF) 0.4 1 drp OPB BID 06/03/21 07/11/25 %-0.3 % eye drops in a dropperette (Systane (PF)) magnesium oxide 400 mg PO QAM #0 caps 01/16/22 07/11/25 [id number] 1 tab PO DAILY 04/24/22 07/11/25 tablet (Multivitamin 50 Plus tablet) aspirin 81 mg tablet,delayed 81 mg PO DAILY 02/07/23 07/11/25 release levalbuterol HCl 1.25 mg/3 mL 1.25 mg inhalation Q4H PRN 07/07/25 07/11/25 solution for nebulization Shortness Of Breath Or Wheezing potassium citrate 99 mg capsule 99 mg PO DAILY 07/07/25 07/11/25 vit C 250 mg-vit E 90 mg-zinc 40 1 tab PO BID 07/07/25 07/11/25 mg-copper 1 [id number] capsule (PreserVision AREDS-2) Previous Rx's Medication Instructions Recorded nebulizers #1 ea 09/07/20 clopidogrel 75 mg tablet 75 mg PO QAM 30 days #30 tabs 08/10/22 cholecalciferol (vitamin D3) 125 125 mcg PO DAILY #30 tabs 06/19/23 mcg (5,000 unit) tablet (Vitamin D3) albuterol sulfate 90 mcg/actuation 2 inh inhalation Q4H PRN shortness 01/29/24 aerosol inhaler (Ventolin HFA) of breath #8.5 grams telmisartan 40 mg tablet (Micardis) 40 mg PO QAM #90 tabs 06/30/24 finasteride 5 mg tablet 5 mg PO DAILY #90 tabs 10/01/24 alfuzosin 10 mg tablet,extended 10 mg PO DAILY #90 tabs 11/24/24 release 24 hr sildenafil 100 mg tablet 100 mg PO DAILY PRN sexual 12/31/24 activity #20 tabs simvastatin 20 mg tablet 20 mg PO DAILY 90 days #90 tabs 03/09/25 budesonide 160 mcg-glycopyr 9 2 inh inhalation BID COPD #10.7 03/11/25 mcg-formot 4.8 mcg/actuation HFA grams inhaler (Breztri Aerosphere) pantoprazole 40 mg tablet,delayed 40 mg PO QAM 90 days #90 tabs 03/18/25 release montelukast 10 mg tablet 10 mg PO HS #90 tabs 03/22/25 (Singulair) carvedilol 6.25 mg tablet 6.25 mg PO BID #180 tabs 05/27/25 duloxetine 60 mg capsule,delayed 60 mg PO DAILY #90 caps 06/21/25 release azithromycin 250 mg tablet 250 mg PO DAILY 4 days #4 tabs 07/08/25 Results & Data (ED) Vital Signs Vital Signs - 24 hr 07/11/25 22:57 10/12/25 23:00 07/11/25 23:04 Temperature 36.6 C Temperature Source Axillary Pulse Rate 98 H 97 H Pulse Rate [Right Foot] Pulse Rhythm Pulse Rhythm [Right Foot] Pulse Strength [Right Foot] Respiratory Rate 32 H Respiratory Effort / Characteristics Spontaneous Labored Spontaneous Labored Short of Breath Respiratory Depth Shallow Shallow Respiratory Pattern Tachypnea Blood Pressure 163/97 H Blood Pressure [Right Arm] Blood Pressure Mean 119 Blood Pressure Mean [Right Arm] Blood Pressure Position [Right Arm] Pulse Oximetry 98 Oxygen Delivery Method BiPAP Sepsis Recent Fever Within 48 Hours No Sepsis New/Unexplained Change in Mental Status No Sepsis Action Taken by Nursing No Action Required 07/11/25 23:05 07/11/25 23:52 07/12/25 01:23 Temperature Temperature Source Pulse Rate 93 H 86 Pulse Rate [Right Foot] Pulse Rhythm Regular Pulse Rhythm [Right Foot] Pulse Strength [Right Foot] Respiratory Rate 26 H 17 Respiratory Effort / Characteristics Respiratory Depth Respiratory Pattern Blood Pressure 112/73 Blood Pressure [Right Arm] Blood Pressure Mean 86 Blood Pressure Mean [Right Arm] Blood Pressure Position [Right Arm] Pulse Oximetry 100 95 91 Oxygen Delivery Method BiPAP BiPAP BiPAP Sepsis Recent Fever Within 48 Hours Sepsis New/Unexplained Change in Mental Status Sepsis Action Taken by Nursing 07/12/25 01:23 07/12/25 01:58 Temperature Temperature Source Pulse Rate Pulse Rate [Right Foot] 86 86 Pulse Rhythm Pulse Rhythm [Right Foot] Regular Pulse Strength [Right Foot] Normal Respiratory Rate 17 24 Respiratory Effort / Characteristics Non-Labored Spontaneous Respiratory Depth Normal Respiratory Pattern Regular Blood Pressure Blood Pressure [Right Arm] 140/76 141/103 H Blood Pressure Mean Blood Pressure Mean [Right Arm] 97 115 Blood Pressure Position [Right Arm] Lying Pulse Oximetry 91 93 Oxygen Delivery Method BiPAP BiPAP Sepsis Recent Fever Within 48 Hours Sepsis New/Unexplained Change in Mental Status Sepsis Action Taken by Nursing Laboratory Data 07/11/25 22:57 07/11/25 22:57 Lab Results 07/11/25 07/11/25 Range/Units 22:57 23:00 WBC 10.24 (4.8-10.8) K/ul RBC 4.12 L (4.70-6.10) M/uL Hgb 12.3 L (14.0-18.0) g/dl Hct 38.5 L (42.0-52.0) % MCV 93.4 (80.0-100.0) fL MCH 29.9 (25.0-34.0) pg MCHC 31.9 L (32.0-36.0) g/dL RDW Std Deviation 45.2 (36.4-46.3) fL RDW Coeff of Alan 13.2 (11.5-14.5) % Plt Count 210 (130-400) K/uL MPV 9.4 (9.4-12.4) fL Immature Gran % (Auto) 0.3 % Neut % (Auto) 66.3 % Lymph % (Auto) 18.0 % [place] % (Auto) 7.2 % Eos % (Auto) 7.5 % Baso % (Auto) 0.7 % Neut # (Auto) 6.79 H (1.40-6.50) K/uL Lymph # (Auto) 1.84 (1.20-3.40) K/uL [place] # (Auto) 0.74 H (0.11-0.59) K/uL Eos # (Auto) 0.77 H (0.00-0.50) K/uL Baso # (Auto) 0.07 (0.00-0.20) K/uL Immature Gran # (Auto) 0.03 (0.01-0.20) K/uL PT 11.0 (9.0-12.0) Seconds INR 1.0 (0.9-1.1) VBG pH 7.24 L (7.36-7.41) VBG pCO2 85 H (38-50) mmHg VBG pO2 < 20 mmHg VBG HCO3 36 mmol/L VBG O2 Saturation < 60.0 % VBG Base Excess 5.9 mEq/L Sodium 139 (136-145) mmol/L Potassium 5.0 (3.5-5.1) mmol/L Chloride 101 (98-107) mmol/L Carbon Dioxide 32 (21-32) mmol/L Anion Gap 6 (3-11) BUN 23 (6-23) mg/dl Creatinine 1.42 H (0.6-1.4) mg/dl Est Cr Clr Drug Dosing 37.5 ml/min eGFR 48.12 BUN/Creatinine Ratio 16.2 (10-20) Glucose 236 H (70-99(Fasting)) mg/dl Calcium 8.8 (8.6-10.3) mg/dl Total Bilirubin 0.3 (0.2-1.0) mg/dl AST 17 (13-39) U/L ALT 11 (7-52) U/L Alkaline Phosphatase 118 H (34-104) U/L Troponin I High Sens 18.0 (0-20) pg/ml B-Natriuretic Peptide 325 H (0-100) pg/ml Total Protein 7.0 (6.0-8.3) gm/dl Albumin 3.8 (3.4-5.0) gm/dl Globulin 3.2 (2.5-4.0) gm/dl Albumin/Globulin Ratio 1.2 (0.9-2) Adenovirus (PCR) Not Detected (NotDetected) B. pertussis DNA (PCR) Not Detected (NotDetected) B.parapertussis DNA PCR Not Detected (NotDetected) C. pneumoniae DNA (PCR) Not Detected (NotDetected) Coronavirus OC43 (PCR) Not Detected (NotDetected) Coronavirus HKU1 (PCR) Not Detected (NotDetected) Coronavirus 229E (PCR) Not Detected (NotDetected) SARS-CoV-2 (PCR) Not Detected (NotDetected) Coronavirus NL63 (PCR) Not Detected (NotDetected) Human Metapneumovir PCR Not Detected (NotDetected) Influenza Type A (PCR) Not Detected (NotDetected) Influenza Type B (PCR) Not Detected (NotDetected) M. pneumoniae (PCR) Not Detected (NotDetected) Parainfluenza 1 (PCR) Not Detected (NotDetected) Parainfluenza 2 (PCR) Not Detected (NotDetected) Parainfluenza 3 (PCR) Not Detected (NotDetected) Parainfluenza 4 (PCR) Not Detected (NotDetected) RSV (PCR) Not Detected (NotDetected) Entero/Rhino (PCR) Not Detected (NotDetected) Administered Medications Discontinued Medications Albuterol (Albut/Ipratrop 3mg/0.5mg Neb 3 Ml Vial) 3 ml INH NOW STA Stop: 07/11/25 22:58 Last Admin: 07/11/25 23:07 Dose: 3 ml Documented By: ANGELICA Azithromycin (Zithromax) 500 mg in 255 mls @ 127.5 mls/hr IV NOW STA Stop: 07/12/25 01:58 Last Admin: 07/12/25 00:25 Dose: 127.5 mls/hr Documented By: CRISTY Pantoprazole Sodium (Protonix) 40 mg in 10 mls @ 5 mls/min IV NOW ONE Stop: 07/11/25 23:59 Last Admin: 07/12/25 00:25 Dose: 5 mls/min Documented By: CRISTY Methylprednisolone (Methylprednisolone 125 Mg/2 Ml Vial) 125 mg IV NOW STA Stop: 07/11/25 23:56 Last Admin: 07/12/25 00:25 Dose: 125 mg Documented By: CRISTY Imaging Data Radiologist's Impression: Chest X-Ray 07/11/25 22:57 Exam(s): XR CXR 1 VIEW EXAM: XR Chest, 1 View CLINICAL HISTORY: Dyspnea. TECHNIQUE: Frontal view of the chest. COMPARISON: Portable chest single view 07/07/2025 FINDINGS: Lungs: No focal consolidation. The pulmonary vasculature appears slightly equalized. No radiographic evidence for florid CHF. Chronic interstitial changes noted involving the right lower lung zone, similar. Pleural space: Unremarkable. No pneumothorax. No large pleural effusion. Heart: An implanted cardiac loop monitor is noted, stable for alteration in projection technique. No cardiomegaly. Mediastinum: The mediastinal contours are stable and unremarkable. The trachea is midline. Bones/joints: Unremarkable. No acute fracture. IMPRESSION: No focal consolidation. The pulmonary vasculature appears slightly equalized. No radiographic evidence for florid CHF. Electronically signed by: Daron Simpson MD 07/11/25 23:27 PM Discharge Plan Visit Data Chief Complaint: Respiratory Distress Stated Complaint: RESPIRATORY FAILURE ED Provider: Saulo Toribio Discharge Problem: Acute and chronic respiratory failure with hypercapnia Patient Disposition: Admitted As Inpatient Condition: Fair Discharge Instructions Interventions: ED Discharge Assessment Last Done: 07/12/25 01:58 Forms Stand Alone Forms: [employer] Prescriptions Prescriptions: No Action magnesium oxide 400 mg magnesium capsule 400 mg PO QAM Qty: 0 telmisartan [Micardis] 40 mg tablet 40 mg PO QAM Qty: 90 3RF sildenafil 100 mg tablet 100 mg PO DAILY PRN (Reason: sexual activity) Qty: 20 11RF Rx Instructions: administer 30 minutes to 4 hours before activity simvastatin 20 mg tablet 20 mg PO DAILY 90 Days Qty: 90 2RF pantoprazole 40 mg tablet,delayed release (DR/EC) 40 mg PO QAM 90 Days Qty: 90 4RF montelukast [Singulair] 10 mg tablet 10 mg PO HS Qty: 90 3RF carvedilol 6.25 mg tablet 6.25 mg PO BID Qty: 180 3RF Rx Instructions: must administer with a meal/food duloxetine 60 mg capsule,delayed release(DR/EC) 60 mg PO DAILY Qty: 90 3RF aspirin 81 mg tablet,delayed release (DR/EC) 81 mg PO DAILY albuterol sulfate [Ventolin HFA] 90 mcg/actuation HFA aerosol inhaler 2 inh inhalation Q4H PRN (Reason: shortness of breath) Qty: 8.5 3RF (DME) nebulizers Misc See Rx Instructions .ROUTE .MEDSUPPLY Qty: 1 0RF Rx Instructions: Q 4HR WITH TUBING & SUPPLIES - DX: COPD finasteride 5 mg tablet 5 mg PO DAILY Qty: 90 3RF Breztri Aerosphere 160-9-4.8 mcg/actuation HFA aerosol inhaler 2 inh inhalation BID Qty: 10.7 12RF alfuzosin 10 mg tablet extended release 24 hr 10 mg PO DAILY Qty: 90 3RF Rx Instructions: administer after the same meal each day Multivitamin 50 Plus Tablet 1 tab PO DAILY clopidogrel 75 mg Tablet 75 mg PO QAM 30 Days Qty: 30 3RF famotidine [Pepcid] 20 mg Tablet 20 mg PO HS Systane (PF) 0.4-0.3 % Dropperette 1 drp OPB BID cholecalciferol (vitamin D3) [Vitamin D3] 125 mcg (5,000 unit) tablet 125 mcg PO DAILY Qty: 30 0RF levalbuterol HCl 1.25 mg/3 mL Solution For Nebulization 1.25 mg INHALATION Q4H PRN (Reason: Shortness Of Breath Or Wheezing) potassium citrate 99 mg Capsule 99 mg PO DAILY PreserVision AREDS-2 250-90-40-1 mg Capsule 1 tab PO BID azithromycin 250 mg tablet 250 mg PO DAILY 4 Days Qty: 4 0RF Rx Instructions: start on day 2 of therapy Referrals Referrals: Hollie Proctor MD [Primary Care Provider] -
[2025-07-11] MEDS: ALBUT/IPRATROP 3MG/0.5MG NEB 3 ML VIAL INH STA (23:07)
[2025-07-11 23:20] LABS: Base Excess VBG 5.9 mEq/L; HCO3 VBG 36 mmol/L; Oxygen Saturation VBG < 60.0 %; PCO2 VBG 85 mmHg (38-50); PO2 VBG < 20 mmHg; pH VBG 7.24 (7.36-7.41)
[2025-07-11 23:23] LABS: Hematocrit (blood only) 38.5 % (42.0-52.0); Hemoglobin 12.3 g/dl (14.0-18.0); Immature Granulocytes # (auto) 0.03 K/uL (0.01-0.20); Immature Granulocytes % (auto) 0.3 %; Mean Corpuscular Hemoglobin 29.9 pg (25.0-34.0); Mean Corpuscular Volume 93.4 fL (80.0-100.0); Platelet Count 210 K/uL (130-400); RDW Standard Deviation 45.2 fL (36.4-46.3); Red Blood Count 4.12 M/uL (4.70-6.10); White Blood Count 10.24 K/ul (4.8-10.8)
--- NOTE | 2025-07-11 23:28 | XRay Report ---
Exam(s): XR CXR 1 VIEW EXAM: XR Chest, 1 View CLINICAL HISTORY: Dyspnea. TECHNIQUE: Frontal view of the chest. COMPARISON: Portable chest single view 07/07/2025 FINDINGS: Lungs: No focal consolidation. The pulmonary vasculature appears slightly equalized. No radiographic evidence for florid CHF. Chronic interstitial changes noted involving the right lower lung zone, similar. Pleural space: Unremarkable. No pneumothorax. No large pleural effusion. Heart: An implanted cardiac loop monitor is noted, stable for alteration in projection technique. No cardiomegaly. Mediastinum: The mediastinal contours are stable and unremarkable. The trachea is midline. Bones/joints: Unremarkable. No acute fracture. IMPRESSION: No focal consolidation. The pulmonary vasculature appears slightly equalized. No radiographic evidence for florid CHF. Electronically signed by: Daron Simpson MD 07/11/25 23:27 PM
[2025-07-11 23:43] LABS: Alanine Aminotransferase 11.0 U/L (7-52); Albumin Globulin Ratio 1.2 (0.9-2); Albumin Level 3.8 gm/dl (3.4-5.0); Alkaline Phosphatase 118.0 U/L (34-104); Anion Gap 6.0 (3-11); Bilirubin,Total 0.3 mg/dl (0.2-1.0); Blood Urea Nitrogen 23.0 mg/dl (6-23); Calcium 8.8 mg/dl (8.6-10.3); Carbon Dioxide 32.0 mmol/L (21-32); Chloride 101.0 mmol/L (98-107); Creatinine Clr Calc Pharmacy 37.5 ml/min; Globulin 3.2 gm/dl (2.5-4.0); Glucose 236.0 mg/dl (70-99(Fasting)); Potassium 5.0 mmol/L (3.5-5.1); Sodium 139.0 mmol/L (136-145); Total Protein 7.0 gm/dl (6.0-8.3)
[2025-07-11 23:51] LABS: INR 1.0 (0.9-1.1); Prothrombin Time 11.0 Seconds (9.0-12.0)
[2025-07-12] MEDS ORDERED: ACETAMINOPHEN 1,000 MG/100 ML VIAL IV PRN (00:01)
[2025-07-12 00:09] LABS: Chlamydia pneumoniae PCR Not Detected (NotDetected); Coronavirus 229E PCR Not Detected (NotDetected); Coronavirus CoV-2 (COVID19)PCR Not Detected (NotDetected); Coronavirus HKU1 PCR Not Detected (NotDetected); Coronavirus NL63 PCR Not Detected (NotDetected); Coronavirus OC43PCR Not Detected (NotDetected); Human Metapneumovirus PCR Not Detected (NotDetected); Parainfluenza Virus 1 PCR Not Detected (NotDetected); Parainfluenza Virus 2 PCR Not Detected (NotDetected); Parainfluenza Virus 3 PCR Not Detected (NotDetected); Parainfluenza Virus 4 PCR Not Detected (NotDetected); Respiratory Syncytial VirusPCR Not Detected (NotDetected); Rhinovirus/Enterovirus PCR Not Detected (NotDetected)
--- NOTE | 2025-07-12 00:12 | History & Physical Report ---
Date of Service July 12, 2025 Assessment & Plan (1) Acute on chronic respiratory failure with hypoxia and hypercapnia: (2) Asthma-chronic obstructive pulmonary disease overlap syndrome: (3) COPD exacerbation: (4) Acute kidney injury: Plan The patient is an 84-year-old male with past medical history including chronic respiratory failure with hypoxia and hypercapnia, left bundle branch block, nonischemic cardiomyopathy, lumbar spinal stenosis and radiculopathy, BPH with LUTS, GERD, atrial fibrillation, carotid artery stenosis, anemia, COPD with exacerbations, asthma, hypersomnia, chronic bronchitis, and aneurysm of infrarenal abdominal aorta. The patient was brought to the emergency department via EMS, after patient's family, in particular his , became concerned that he might be dying at home due to severe breathing issues. When EMS arrived, he was found to be in acute respiratory failure with hypoxia, and placed on BiPAP. EMS reports that the patient seemed to improve significantly over the most recent 10 minutes prior to transport while being on BiPAP. 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 Upon arrival to the emergency department, patient was communicative, had good color, no longer appears cyanotic as noted in the outpatient setting. He had recently been admitted to [facility] from 07/07- with the same presentation, in addition to his usual inhalers, was discharged on azithromycin 2050 mg by mouth daily, which he reports taking as directed. From the ED the patient received the following: DuoNeb treatment. Laboratories revealed potassium of 5.0, glucose 236, creatinine 1.42, and a negative respiratory BioFire test. Patient was then referred for evaluation for admission to the [facility] hospitalist service. Acute on chronic respiratory failure with hypoxia/asthma-COPD overlap syndrome/COPD exacerbation- Most recent hospitalization from 07/07-07/08/2025 was for similar symptoms but not as intense as today. Solu-Medrol 125 mg IV now, then 40 mg IV every 8 hours DuoNebs 4 times daily, and every 2 hours as needed Azithromycin 500 mg IV daily Add Pulmicort Respules 0.5 mg inhaled twice daily, and suggest patient ultimately be discharged on this medication as well Continue montelukast 10 mg at bedtime Continue BiPAP for now, as symptoms improve, taper downward from BiPAP to eventually nasal cannula oxygen. Patient may require oxygen supplementation upon discharge Acute kidney injury- Creatinine 1.42 on admission, with base 1.05- Hold telmisartan NSS at 80 mL/h x 500 mL Atrial fibrillation/hypertension- Continue aspirin, carvedilol, clopidogrel GERD- Change pantoprazole from oral to IV BPH with LUTS- Continue tamsulosin Hyperlipidemia- Continue simvastatin History of Present Illness Chief Complaint: The patient was brought to the emergency department via EMS, after patient's family, in particular his , became concerned that he might be dying at home due to severe breathing issues. When EMS arrived, he was found to be in acute respiratory failure with hypoxia, and placed on BiPAP. EMS reports that the patient seemed to improve significantly over the most recent 10 minutes prior to transport while being on BiPAP. 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 Upon arrival to the emergency department, patient was communicative, had good color, no longer appears cyanotic as noted in the outpatient setting. He had recently been admitted to [facility] from 07/07- with the same presentation, in addition to his usual inhalers, was discharged on azithromycin 250 mg by mouth daily, which he reports taking as directed. Primary Care Provider: Hollie Proctor MD The patient is an 84-year-old male with past medical history including chronic respiratory failure with hypoxia and hypercapnia, left bundle branch block, nonischemic cardiomyopathy, lumbar spinal stenosis and radiculopathy, BPH with LUTS, GERD, atrial fibrillation, carotid artery stenosis, anemia, COPD with exacerbations, asthma, hypersomnia, chronic bronchitis, and aneurysm of infrarenal abdominal aorta. The patient was brought to the emergency department via EMS, after patient's family, in particular his , became concerned that he might be dying at home due to severe breathing issues. When EMS arrived, he was found to be in acute respiratory failure with hypoxia, and placed on BiPAP. EMS reports that the patient seemed to improve significantly over the most recent 10 minutes prior to transport while being on BiPAP. 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 Upon arrival to the emergency department, patient was communicative, had good color, no longer appears cyanotic as noted in the outpatient setting. He had recently been admitted to [facility] from 07/07- with the same presentation, in addition to his usual inhalers, was discharged on azithromycin 2050 mg by mouth daily, which he reports taking as directed. From the ED the patient received the following: DuoNeb treatment. Laboratories revealed potassium of 5.0, glucose 236, creatinine 1.42, and a negative respiratory BioFire test. Patient was then referred for evaluation for admission to the [facility] hospitalist service. Allergies Allergy/AdvReac Type Severity Reaction Status Date / Time No Known Allergies Allergy Verified 07/07/25 16:33 Home Medications Medication Instructions Recorded Confirmed Type nebulizers #1 ea 09/07/20 07/11/25 Rx famotidine 20 mg tablet (Pepcid) 20 mg PO HS 06/03/21 07/11/25 History peg 400-propylene glycol (PF) 0.4 1 drp OPB BID 06/03/21 07/11/25 History %-0.3 % eye drops in a dropperette (Systane (PF)) magnesium oxide 400 mg PO QAM #0 caps 01/16/22 07/11/25 History adnvvlccjlxc-scrwpmbk-ogewtu 1 tab PO DAILY 04/24/22 07/11/25 History tablet (Multivitamin 50 Plus tablet) clopidogrel 75 mg tablet 75 mg PO QAM 30 days #30 tabs 08/10/22 07/11/25 Rx aspirin 81 mg tablet,delayed 81 mg PO DAILY 02/07/23 07/11/25 History release cholecalciferol (vitamin D3) 125 125 mcg PO DAILY #30 tabs 06/19/23 07/11/25 Rx mcg (5,000 unit) tablet (Vitamin D3) albuterol sulfate 90 mcg/actuation 2 inh inhalation Q4H PRN shortness 01/29/24 07/11/25 Rx aerosol inhaler (Ventolin HFA) of breath #8.5 grams telmisartan 40 mg tablet (Micardis) 40 mg PO QAM #90 tabs 06/30/24 07/11/25 Rx finasteride 5 mg tablet 5 mg PO DAILY #90 tabs 10/01/24 07/11/25 Rx alfuzosin 10 mg tablet,extended 10 mg PO DAILY #90 tabs 11/24/24 07/11/25 Rx release 24 hr sildenafil 100 mg tablet 100 mg PO DAILY PRN sexual 12/31/24 07/11/25 Rx activity #20 tabs simvastatin 20 mg tablet 20 mg PO DAILY 90 days #90 tabs 03/09/25 07/11/25 Rx budesonide 160 mcg-glycopyr 9 2 inh inhalation BID COPD #10.7 03/11/25 07/11/25 Rx mcg-formot 4.8 mcg/actuation HFA grams inhaler (Breztri Aerosphere) pantoprazole 40 mg tablet,delayed 40 mg PO QAM 90 days #90 tabs 03/18/25 07/11/25 Rx release montelukast 10 mg tablet 10 mg PO HS #90 tabs 03/22/25 07/11/25 Rx (Singulair) carvedilol 6.25 mg tablet 6.25 mg PO BID #180 tabs 05/27/25 07/11/25 Rx duloxetine 60 mg capsule,delayed 60 mg PO DAILY #90 caps 06/21/25 07/11/25 Rx release levalbuterol HCl 1.25 mg/3 mL 1.25 mg inhalation Q4H PRN 07/07/25 07/11/25 History solution for nebulization Shortness Of Breath Or Wheezing potassium citrate 99 mg capsule 99 mg PO DAILY 07/07/25 07/11/25 History vit C 250 mg-vit E 90 mg-zinc 40 1 tab PO BID 07/07/25 07/11/25 History mg-copper 1 [id number]-donvni capsule (PreserVision AREDS-2) azithromycin 250 mg tablet 250 mg PO DAILY 4 days #4 tabs 07/08/25 07/11/25 Rx Past Med/Surg History Problem List (Updated 07/12/25 @ 05:28 by Chip Novak MD) COPD exacerbation Acute kidney injury Acute on chronic respiratory failure with hypoxia and hypercapnia Acute and chronic respiratory failure with hypercapnia (Acute) Acute and chronic respiratory failure with hypoxia LBBB (left bundle branch block) Nonischemic cardiomyopathy Short of breath on exertion Skin tear of left upper extremity Fatigue Lumbar radiculopathy Lumbar spinal stenosis Severe at L4-5 Lumbar facet joint syndrome Erectile dysfunction Benign localized prostatic hyperplasia with lower urinary tract symptoms (LUTS) Peripheral arteriosclerosis Osteoarthritis Nocturnal hypoxia o2 2l at hs Hypertension GERD (gastroesophageal reflux disease) BPH (benign prostatic hyperplasia) Atrial fibrillation dx 7 yrs ago Bilateral shoulder pain 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) Carotid artery stenosis Neutrophilic leukocytosis Anemia COPD (chronic obstructive pulmonary disease) (Chronic) Impaired fasting glucose (Chronic) Asthma-chronic obstructive pulmonary disease overlap syndrome Aortic aneurysm Status post placement of implantable loop recorder Ground glass opacity present on imaging of lung Insomnia Hypersomnia Ex-smoker Chronic bronchitis Aneurysm of infrarenal abdominal aorta 04/18/2022 - 7cm x 6.7 cm Medical History Vitamin D deficiency COVID-19 Weakness Ischemia of toe Implantable loop recorder present dr jacobson - 3 yrs ago Benign localized prostatic hyperplasia with lower urinary tract symptoms (LUTS) History of tobacco use Insomnia Hearing loss Erectile dysfunction Syncopal episodes summer 2020 COPD (chronic obstructive pulmonary disease) CKD (chronic kidney disease) Surgical History S/P endovascular aneurysm repair S/P AAA repair using bifurcation graft Hx of colonoscopy Hx of appendectomy History of left hip replacement History of right hip replacement Family History Other Coronary heart disease Diabetes Social History Smoking Status: Former smoker Tobacco Type: Cigarettes Age Started Using Tobacco: 18; Age Quit Using Tobacco: 75; packs per day: 1; Cigarettes Per Day: 1pack; Second Hand Exposure: No; Do You Dip or Chew Tobacco: No; Hx Alcohol Use: No Hx Substance Use: No Preferred Language: Estonian Communication Ability: Effective Visual Impairment: No Limitations Gameplay Engineer Required: No Beliefs That Will Affect Care: None marital status: Current Living Situation: Spouse current occupational status: retired How many Children do You have: 1 Other Information That Helps Us Care for You: No other: [employer] from [id number]. Discharge rank E4. No combat injury Feels Safe at Home: Yes Safety Concerns: Feels Safe At This Time Childhood Exposure to Second-Hand Smoke: No Diet: regular caffeine: Yes Dental Care, Regularly: No Physical Activity Frequency: Daily Seatbelt Use: always Sunscreen Use: Yes Assistive Devices: Cane and Nebulizer Review of Systems Review of Systems: The patient denies palpitations, lower extremity swelling, sore throat, fevers, chills, sweats, nausea, vomiting, diarrhea , constipation, abdominal pain, pelvic pain, blood in urine or stool, dysuria, urinary frequency or urgency, rash, abnormal bruising or bleeding, focal weakness, numbness or tingling in arms or legs, generalized arthralgias or myalgias, back or neck pain, or night sweats. The review of systems is otherwise negative other than for that already noted above, and at least 10 systems have been reviewed. Physical Exam Physical Exam: The patient is awake, alert and oriented 3, well developed and well nourished, normocephalic and atraumatic, lying in bed and in no acute distress. HEENT--PERRL, EOMI, mucous membranes and oropharynx dry. Neck--supple. No JVD. No bruits. Thyroid normal, trachea midline, no adenopathy. Heart--normal S1 and S2. No murmurs, rubs or gallops. Lungs--coarse breath sounds bilaterally, but overall diminished. No respiratory distress, no accessory muscle use with BiPAP in place. Abdomen--normal bowel sounds and soft. Nontender. Nondistended, no hernias or masses, no organomegaly. Extremities-- No edema. There are good distal pulses b/l. Dermatologic--normal skin turgor, normal color, no abnormal lymph nodes, no rash. Neurologic--cranial nerves II through XII grossly intact. Rheumatologic--limited exam due to respiratory status Psychiatric--normal affect. Results & Data Results & Data Vital Signs (Past 12 Hours) Vital Signs Temp Pulse Resp BP Pulse Ox O2 Del Method 07/11/25 23:52 93 H 26 H 112/73 95 BiPAP 07/11/25 23:05 100 BiPAP 07/11/25 23:00 36.6 C 97 H 32 H 163/97 H 98 BiPAP 07/11/25 22:57 98 H Laboratory Results Laboratory Results WBC 12.62 K/ul (4.8-10.8) H 07/12/25 03:41 RBC 3.93 M/uL (4.70-6.10) L 07/12/25 03:41 Hgb 11.3 g/dl (14.0-18.0) L 07/12/25 03:41 Hct 36.0 % (42.0-52.0) L 07/12/25 03:41 MCV 91.6 fL (80.0-100.0) 07/12/25 03:41 MCH 28.8 pg (25.0-34.0) 07/12/25 03:41 MCHC 31.4 g/dL (32.0-36.0) L 07/12/25 03:41 RDW Std Deviation 45.2 fL (36.4-46.3) 07/12/25 03:41 RDW Coeff of Alan 13.3 % (11.5-14.5) 07/12/25 03:41 Plt Count 189 K/uL (130-400) 07/12/25 03:41 MPV 9.3 fL (9.4-12.4) L 07/12/25 03:41 Immature Gran % (Auto) 0.5 % 07/12/25 03:41 Neut % (Auto) 92.9 % 07/12/25 03:41 Lymph % (Auto) 5.5 % 07/12/25 03:41 Gooding % (Auto) 0.7 % 07/12/25 03:41 Eos % (Auto) 0.2 % 07/12/25 03:41 Baso % (Auto) 0.2 % 07/12/25 03:41 Neut # (Auto) 11.72 K/uL (1.40-6.50) H 07/12/25 03:41 Lymph # (Auto) 0.69 K/uL (1.20-3.40) L 07/12/25 03:41 Gooding # (Auto) 0.09 K/uL (0.11-0.59) L 07/12/25 03:41 Eos # (Auto) 0.03 K/uL (0.00-0.50) 07/12/25 03:41 Baso # (Auto) 0.03 K/uL (0.00-0.20) 07/12/25 03:41 Immature Gran # (Auto) 0.06 K/uL (0.01-0.20) 07/12/25 03:41 PT 11.0 Seconds (9.0-12.0) 07/11/25 22:57 INR 1.0 (0.9-1.1) 07/11/25 22:57 VBG pH 7.39 (7.36-7.41) 07/12/25 03:41 VBG pCO2 48 mmHg (38-50) 07/12/25 03:41 VBG pO2 54 mmHg 07/12/25 03:41 VBG HCO3 29 mmol/L 07/12/25 03:41 VBG O2 Saturation 88.0 % 07/12/25 03:41 VBG Base Excess 3.3 mEq/L 07/12/25 03:41 Sodium 136 mmol/L (136-145) 07/12/25 03:41 Potassium 4.2 mmol/L (3.5-5.1) 07/12/25 03:41 Chloride 100 mmol/L (98-107) 07/12/25 03:41 Carbon Dioxide 28 mmol/L (21-32) 07/12/25 03:41 Anion Gap 8 (3-11) 07/12/25 03:41 BUN 22 mg/dl (6-23) 07/12/25 03:41 Creatinine 1.17 mg/dl (0.6-1.4) 07/12/25 03:41 Est Cr Clr Drug Dosing 45.5 ml/min 07/12/25 03:41 eGFR 60.71 07/12/25 03:41 BUN/Creatinine Ratio 18.8 (10-20) 07/12/25 03:41 Glucose 201 mg/dl (70-99(Fasting)) H 07/12/25 03:41 Calcium 8.6 mg/dl (8.6-10.3) 07/12/25 03:41 Phosphorus 3.6 mg/dl (2.5-4.9) 07/12/25 03:41 Total Bilirubin 0.3 mg/dl (0.2-1.0) 07/11/25 22:57 AST 17 U/L (13-39) 07/11/25 22:57 ALT 11 U/L (7-52) 07/11/25 22:57 Alkaline Phosphatase 118 U/L (34-104) H 07/11/25 22:57 Troponin I High Sens 18.0 pg/ml (0-20) 07/11/25 22:57 B-Natriuretic Peptide 325 pg/ml (0-100) H 07/11/25 22:57 Total Protein 7.0 gm/dl (6.0-8.3) 07/11/25 22:57 Albumin 3.8 gm/dl (3.4-5.0) 07/12/25 03:41 Globulin 3.2 gm/dl (2.5-4.0) 07/11/25 22:57 Albumin/Globulin Ratio 1.2 (0.9-2) 07/11/25 22:57 Adenovirus (PCR) Not Detected (NotDetected) 07/11/25 23:00 B. pertussis DNA (PCR) Not Detected (NotDetected) 07/11/25 23:00 B.parapertussis DNA PCR Not Detected (NotDetected) 07/11/25 23:00 C. pneumoniae DNA (PCR) Not Detected (NotDetected) 07/11/25 23:00 Coronavirus OC43 (PCR) Not Detected (NotDetected) 07/11/25 23:00 Coronavirus HKU1 (PCR) Not Detected (NotDetected) 07/11/25 23:00 Coronavirus 229E (PCR) Not Detected (NotDetected) 07/11/25 23:00 SARS-CoV-2 (PCR) Not Detected (NotDetected) 07/11/25 23:00 Coronavirus NL63 (PCR) Not Detected (NotDetected) 07/11/25 23:00 Human Metapneumovir PCR Not Detected (NotDetected) 07/11/25 23:00 Influenza Type A (PCR) Not Detected (NotDetected) 07/11/25 23:00 Influenza Type B (PCR) Not Detected (NotDetected) 07/11/25 23:00 M. pneumoniae (PCR) Not Detected (NotDetected) 07/11/25 23:00 Parainfluenza 1 (PCR) Not Detected (NotDetected) 07/11/25 23:00 Parainfluenza 2 (PCR) Not Detected (NotDetected) 07/11/25 23:00 Parainfluenza 3 (PCR) Not Detected (NotDetected) 07/11/25 23:00 Parainfluenza 4 (PCR) Not Detected (NotDetected) 07/11/25 23:00 RSV (PCR) Not Detected (NotDetected) 07/11/25 23:00 Entero/Rhino (PCR) Not Detected (NotDetected) 07/11/25 23:00 Impressions Chest X-Ray 07/11/25 22:57 Exam(s): XR CXR 1 VIEW EXAM: XR Chest, 1 View CLINICAL HISTORY: Dyspnea. TECHNIQUE: Frontal view of the chest. COMPARISON: Portable chest single view 07/07/2025 FINDINGS: Lungs: No focal consolidation. The pulmonary vasculature appears slightly equalized. No radiographic evidence for florid CHF. Chronic interstitial changes noted involving the right lower lung zone, similar. Pleural space: Unremarkable. No pneumothorax. No large pleural effusion. Heart: An implanted cardiac loop monitor is noted, stable for alteration in projection technique. No cardiomegaly. Mediastinum: The mediastinal contours are stable and unremarkable. The trachea is midline. Bones/joints: Unremarkable. No acute fracture. IMPRESSION: No focal consolidation. The pulmonary vasculature appears slightly equalized. No radiographic evidence for florid CHF. Electronically signed by: Daron Simpson MD 07/11/25 23:27 PM Code Status & VTE Plan Code Status DNR/DNI VTE Prophylaxis Plan VTE Prophylaxis will be ordered: Yes PG Care Time/CCT Total # of Minutes Spent Total Time Spent with Patient: Total time spent is greater than 50% in coordination of care (as documented) at patient's floor/unit and/or counseling patient: Coding Level of Care Code 53838 INT INP/OBS CARE 3/75MIN Diagnoses Acute on chronic respiratory failure with hypoxia and hypercapnia J96.21; J96.22 Asthma-chronic obstructive pulmonary disease overlap syndrome J44.9 COPD exacerbation J44.1 Acute kidney injury N17.9
[2025-07-12] MEDS ORDERED: ACETAMINOPHEN 500 MG TAB PO PRN (00:16)
[2025-07-12] MEDS: AZITHROMYCIN 500 MG/255 ML BAG IV STA (00:25)
[2025-07-12] MEDS: PANTOprazole 40 MG/10 ML SYR IV ONE (00:25)
[2025-07-12] MEDS ORDERED: ALBUT/IPRATROP 3MG/0.5MG NEB 3 ML VIAL NEB PRN (02:52)
[2025-07-12 03:50] LABS: Base Excess VBG 3.3 mEq/L; HCO3 VBG 29 mmol/L; Oxygen Saturation VBG 88.0 %; PCO2 VBG 48 mmHg (38-50); PO2 VBG 54 mmHg; pH VBG 7.39 (7.36-7.41)
[2025-07-12 03:57] LABS: Hematocrit (blood only) 36.0 % (42.0-52.0); Hemoglobin 11.3 g/dl (14.0-18.0); Mean Corpuscular Hemoglobin 28.8 pg (25.0-34.0); Mean Corpuscular Volume 91.6 fL (80.0-100.0); Platelet Count 189 K/uL (130-400); RDW Standard Deviation 45.2 fL (36.4-46.3); Red Blood Count 3.93 M/uL (4.70-6.10); White Blood Count 12.62 K/ul (4.8-10.8)
[2025-07-12 04:13] LABS: Albumin Level 3.8 gm/dl (3.4-5.0); Anion Gap 8.0 (3-11); Blood Urea Nitrogen 22.0 mg/dl (6-23); Calcium 8.6 mg/dl (8.6-10.3); Carbon Dioxide 28.0 mmol/L (21-32); Chloride 100.0 mmol/L (98-107); Creatinine Clr Calc Pharmacy 45.5 ml/min; Glucose 201.0 mg/dl (70-99(Fasting)); Potassium 4.2 mmol/L (3.5-5.1); Sodium 136.0 mmol/L (136-145)
[2025-07-12 04:14] LABS: Immature Granulocytes # (auto) 0.06 K/uL (0.01-0.20); Immature Granulocytes % (auto) 0.5 %
[2025-07-12] MEDS: SODIUM CHLORIDE 0.9% 500 ML IV SCH (06:02)
[2025-07-12] MEDS: BUDESONIDE 0.5 MG/2 ML VIAL (PULMICORT) NEB SCH (07:16)
[2025-07-12] MEDS: ALBUT/IPRATROP 3MG/0.5MG NEB 3 ML VIAL NEB SCH (07:16)
--- NOTE | 2025-07-12 07:48 | Hospitalist Progress Note ---
Date of Service July 12, 2025 Assessment & Plan (1) Acute and chronic respiratory failure with hypoxia: (2) Nonischemic cardiomyopathy: (3) Lumbar spinal stenosis: (4) BPH (benign prostatic hyperplasia): (5) GERD (gastroesophageal reflux disease): Plan 84-year-old male with Gold C COPD presents with acute on chronic respiratory failure hypoxia and symptomatic shortness of breath. Pt was supported with Bipap and given steroids in the ER # acute exacerbation of chronic lung disease, pt continues on parenteral steroids, scheduled duonebs, continue montelukast use azithromycin for anti inflammatory affects pt is on chronic budesonide/formoterol, typically sees Dr Inetriano given perhaps some dietary issues with sob, ? is from HF, will check echo for EF and valvular integrity #Nonischemic cardiomyopathy acutely not in exacerbation of heart failure reduced ejection fraction. Will continue telmisartan or pharmacy substitute, carvedilol, Plavix/aspirin (dual antiplatelet might be for peripheral vascular disease). Episodic nature of these events questions arrhythmia vs mucus plugging #Glucose intolerance. Not sure if from stressful event. will continue to follow #Low back pain continue tramadolgood symptom control #BPH no signs of lower urinary symptoms at this time will continue finasteride and alfuzosin #DVT prevention will be early ambulation given his dual antiplatelet therapy. Admission and Anticipated Discharge Date Admission Date: July 12, 2025 Subjective pt states he is feeling better, still scant wheezes and pt states was feeling well until [employer] meal on saturday present at bedside and updated Physical Exam Physical Exam: pleasant on room air at rest scant exp wheezes cardiac exam is regular but distant Results & Data Results & Data Vital Signs (Past 12 Hours) Vital Signs Temp Pulse Pulse Pulse Resp BP BP 07/12/25 07:18 86 18 07/12/25 07:03 97.5 F L 83 17 145/79 H 07/12/25 03:28 96 H 07/12/25 03:05 97.7 F 78 18 137/84 07/12/25 03:05 97.9 F 87 18 07/12/25 03:00 07/12/25 01:58 86 24 07/12/25 01:23 86 17 07/12/25 01:23 86 17 07/11/25 23:52 93 H 26 H 112/73 07/11/25 23:05 07/11/25 23:00 97.9 F 97 H 32 H 163/97 H 07/11/25 22:57 98 H BP Pulse Ox O2 Del Method FiO2 07/12/25 07:18 93 Nasal Cannula 07/12/25 07:03 98 BiPAP 30 07/12/25 03:28 07/12/25 03:05 97 BiPAP 07/12/25 03:05 157/94 H 80 L Room Air 07/12/25 03:00 BiPAP 07/12/25 01:58 141/103 H 93 BiPAP 07/12/25 01:23 140/76 91 BiPAP 07/12/25 01:23 91 BiPAP 07/11/25 23:52 95 BiPAP 07/11/25 23:05 100 BiPAP 07/11/25 23:00 98 BiPAP 07/11/25 22:57 Laboratory Results review cbc mild leukocytosis from review chemsistry PG Care Time/CCT Total # of Minutes Spent Total Time Spent with Patient: Total time spent is greater than 50% in coordination of care (as documented) at patient's floor/unit and/or counseling patient: Coding Level of Care Code 96032 SUB INP/OBS CARE 3/50MIN Diagnoses Acute and chronic respiratory failure with hypoxia J96.21 Nonischemic cardiomyopathy I42.8 Spinal stenosis of lumbar region with neurogenic claudication M48.062 Neurogenic claudication status: with neurogenic claudication BPH (benign prostatic hyperplasia) N40.0 GERD (gastroesophageal reflux disease) K21.9 (3) Lumbar spinal stenosis Neurogenic claudication status: with neurogenic claudication Qualified Code(s): M48.062 - Spinal stenosis, lumbar region with neurogenic claudication
[2025-07-12] MEDS ORDERED: methylPREDNISolone 10 mg/mL (For Ped Dose < 7mg) IV SCH (08:00)
[2025-07-12] MEDS: LOSARTAN POTASSIUM 50 MG TAB PO SCH (09:00)
[2025-07-12] MEDS: PANTOprazole 40 MG/10 ML SYR IV SCH (09:01)
[2025-07-12] MEDS: ASPIRIN 81 MG ECTAB PO SCH (09:01)
[2025-07-12] MEDS: MAGNESIUM OXIDE 400 MG TAB PO SCH (09:01)
[2025-07-12] MEDS: CHOLECALCIFEROL 125 MCG (5,000 UNITS) TAB PO SCH (09:01)
[2025-07-12] MEDS: HEPARIN SOD 5,000 UNIT/0.5 ML VIAL SQ SCH (09:01)
[2025-07-12] MEDS: SIMVASTATIN 20 MG TAB PO SCH (09:01)
[2025-07-12] MEDS: TAMSULOSIN HCL 0.4 MG CAP PO SCH (09:01)
[2025-07-12] MEDS: CLOPIDOGREL BISULFATE 75 MG TAB PO SCH (09:01)
[2025-07-12] MEDS: CEROVITE ADV FORMULA TAB PO SCH (09:01)
[2025-07-12] MEDS: ARTIFICIAL TEARS OP SCH (09:15)
--- NOTE | 2025-07-12 15:42 | Electrocardiogram Report ---
Test Reason : Blood Pressure : */* mmHG Vent. Rate : 97 BPM Atrial Rate : 97 BPM P-R Int : 210 ms QRS Dur : 132 ms QT Int : 398 ms P-R-T Axes : 85 30 104 degrees QTcB Int : 505 ms Sinus rhythm with 1st degree A-V block Non-specific intra-ventricular conduction block Minimal voltage criteria for LVH, may be normal variant ( Sokolow-Gutierrez ) Cannot rule out Anterior infarct (cited on or before 15-Apr-2025) When compared with ECG of 07-Jul-2025 15:05, Criteria for Inferior infarct are no longer Present Questionable change in initial forces of Anteroseptal leads ST now depressed in Inferior leads Confirmed by Tom Carter ([id number]) on 07/12/2025 3:42:06 PM Referred By: Confirmed By: Tom Carter
--- NOTE | 2025-07-12 17:29 | Pulmonary Consultation ---
Date of Consultation July 12, 2025 Assessment & Plan (1) COPD exacerbation: (2) Acute on chronic respiratory failure with hypoxia and hypercapnia: Plan Patient has clinically improved with steroids and bronchodilators. I reviewed his history, may be an element of COPD/asthma overlap given his eosinophilia and high IgE level. May benefit from a biologic such as omalizumab in the future. Has documented allergies. I agree with steroids given his wheezing and hypercapnia. Can transition to prednisone 40 mg daily starting tomorrow. Continue nebulized therapies at this time with [facility] kamara. Continue montelukast. Given his recurrent exacerbations and hypercapnia he may benefit from NIV at home. Not appropriate to qualify him tonight given that he is still in acute exacerbation and wheezing. If the patient remains inpatient for tomorrow evening and respiratory status is improved then we can consider doing an overnight pulse oximetry followed by a morning gas on room air. If patient is retaining CO2 then he may benefit from noninvasive therapy at home. If patient is discharged prior to this then he can be evaluated in the outpatient setting for possible home NIV. Upon discharge the patient can resume his twice daily Breztri. Primary instrument technician can consider biologic therapy for elevated IgE, documented allergies and eosinophilia. Please ensure that patient is evaluated for possible home oxygen with ambulation upon discharge. Thank you for this consultation. I will follow along with you. History of Present Illness Reason for Consultation: Recurrent COPD exacerbation Requesting Physician: Chip Novak MD Attending Physician: Chip Novak MD History of Present Illness Patient is a 84-year-old male with a past medical history significant for COPD with emphysema, chronic bronchitis, previous tobacco use (60-dgkc-aoru history, quit 2014), history of peripheral eosinophilia, nocturnal hypoxia, GERD, systolic CHF, atrial fibrillation and hypertension. The patient presented to the emergency department 07/11/2025 via EMS due to shortness of breath. The patient's had called 911 due to hypoxia and respiratory failure at home. EMS reported a pulse ox in the 40s prior to initiating BiPAP and oxygen. Upon arrival to the emergency department the patient had improved significantly. Wheezing was appreciated on exam. VBG showed a pH of 7.24 with a pCO2 of 85. He was admitted to the hospitalist for COPD exacerbation. Pulmonary was consulted for recurrent COPD exacerbation. Of note the patient was recently admitted to the hospital overnight on 07/07/2025 and discharged on azithromycin. During that hospital stay he did not have any wheezing and did not seem to be in COPD exacerbation therefore was not treated with steroids upon discharge. During his previous hospitalization he also had h ypercapnia of pH 7.26 and pCO2 of 71. When I examined the patient today he is resting comfortably in bed. He is on room air. is at bedside. She endorses that he was having severe respiratory distress at home when she called 911 and she thought he was going to . He is compliant with his inhalers and does not smoke anymore. He follows with pulmonary at our institution, he sees Dr. Interiano and was last seen 03/11/2025. He also recently attended pulmonary rehab. The patient does have significant peripheral eosinophilia in the past and also an elevated IgE level of 291. He endorses known allergies to Florentino grass and cockroaches and in the past did receive allergy shots. On examination there is appreciable wheezing in the left lower lobe. He is nontachypneic on room air. Mild cough is present. No significantly lower extremity edema. Allergies Allergy/AdvReac Type Severity Reaction Status Date / Time No Known Allergies Allergy Verified 07/07/25 16:33 Home Medications Medication Instructions Recorded Confirmed Type nebulizers #1 ea 09/07/20 07/11/25 Rx famotidine 20 mg tablet (Pepcid) 20 mg PO HS 06/03/21 07/11/25 History peg 400-propylene glycol (PF) 0.4 1 drp OPB BID 06/03/21 07/11/25 History %-0.3 % eye drops in a dropperette (Systane (PF)) magnesium oxide 400 mg PO QAM #0 caps 01/16/22 07/11/25 History kvyutxezeaju-midgyaww-ptwaxv 1 tab PO DAILY 04/24/22 07/11/25 History tablet (Multivitamin 50 Plus tablet) clopidogrel 75 mg tablet 75 mg PO QAM 30 days #30 tabs 08/10/22 07/11/25 Rx aspirin 81 mg tablet,delayed 81 mg PO DAILY 02/07/23 07/11/25 History release cholecalciferol (vitamin D3) 125 125 mcg PO DAILY #30 tabs 06/19/23 07/11/25 Rx mcg (5,000 unit) tablet (Vitamin D3) albuterol sulfate 90 mcg/actuation 2 inh inhalation Q4H PRN shortness 01/29/24 07/11/25 Rx aerosol inhaler (Ventolin HFA) of breath #8.5 grams telmisartan 40 mg tablet (Micardis) 40 mg PO QAM #90 tabs 06/30/24 07/11/25 Rx finasteride 5 mg tablet 5 mg PO DAILY #90 tabs 10/01/24 07/11/25 Rx alfuzosin 10 mg tablet,extended 10 mg PO DAILY #90 tabs 11/24/24 07/11/25 Rx release 24 hr sildenafil 100 mg tablet 100 mg PO DAILY PRN sexual 12/31/24 07/11/25 Rx activity #20 tabs simvastatin 20 mg tablet 20 mg PO DAILY 90 days #90 tabs 03/09/25 07/11/25 Rx budesonide 160 mcg-glycopyr 9 2 inh inhalation BID COPD #10.7 03/11/25 07/11/25 Rx mcg-formot 4.8 mcg/actuation HFA grams inhaler (Breztri Aerosphere) pantoprazole 40 mg tablet,delayed 40 mg PO QAM 90 days #90 tabs 03/18/25 07/11/25 Rx release montelukast 10 mg tablet 10 mg PO HS #90 tabs 03/22/25 07/11/25 Rx (Singulair) carvedilol 6.25 mg tablet 6.25 mg PO BID #180 tabs 05/27/25 07/11/25 Rx duloxetine 60 mg capsule,delayed 60 mg PO DAILY #90 caps 06/21/25 07/11/25 Rx release levalbuterol HCl 1.25 mg/3 mL 1.25 mg inhalation Q4H PRN 07/07/25 07/11/25 History solution for nebulization Shortness Of Breath Or Wheezing potassium citrate 99 mg capsule 99 mg PO DAILY 07/07/25 07/11/25 History vit C 250 mg-vit E 90 mg-zinc 40 1 tab PO BID 07/07/25 07/11/25 History mg-copper 1 gq-vfghwj-mhwvva capsule (PreserVision AREDS-2) azithromycin 250 mg tablet 250 mg PO DAILY 4 days #4 tabs 07/08/25 07/11/25 Rx Patient History Medical History Vitamin D deficiency COVID-19 Weakness Ischemia of toe Implantable loop recorder present dr jacobson - 3 yrs ago Benign localized prostatic hyperplasia with lower urinary tract symptoms (LUTS) History of tobacco use Insomnia Hearing loss Erectile dysfunction Syncopal episodes summer 2020 COPD (chronic obstructive pulmonary disease) CKD (chronic kidney disease) Surgical History S/P endovascular aneurysm repair S/P AAA repair using bifurcation graft Hx of colonoscopy Hx of appendectomy History of left hip replacement History of right hip replacement Family History Other Coronary heart disease Diabetes Social History Smoking Status: Former smoker Tobacco Type: Cigarettes Age Started Using Tobacco: 18; Age Quit Using Tobacco: 75; packs per day: 1; Cigarettes Per Day: 1pack; Second Hand Exposure: No; Do You Dip or Chew Tobacco: No; Hx Alcohol Use: No Hx Substance Use: No Preferred Language: Portuguese Communication Ability: Effective Visual Impairment: No Limitations Corpsman Required: No Beliefs That Will Affect Care: None marital status: Current Living Situation: Spouse current occupational status: retired How many Children do You have: 1 other: [employer] from [phone]. Discharge rank E4. No combat injury Feels Safe at Home: Yes Childhood Exposure to Second-Hand Smoke: No Diet: regular caffeine: Yes Dental Care, Regularly: No Physical Activity Frequency: Daily Seatbelt Use: always Sunscreen Use: Yes Assistive Devices: Cane and Nebulizer Review of Systems Review of Systems: Negative except as in HPI. Physical Exam Physical Exam: Physical examination: General: Well-appearing, well-nourished and not in acute distress. HEENT: Normocephalic, atraumatic. Extraocular movements intact. Sclera are nonicteric. No JVD appreciated. Skin: Warm and dry. No rashes appreciated. No jaundice appreciated. Cardiovascular: Heart is a regular rate and rhythm, no murmurs appreciated on my exam. No significant lower extremity edema. Lungs: On room air, some wheezing appreciated on the left. No crackles. Nontachypneic. Musculoskeletal: Normal muscle mass and tone. No gross joint deformity abnormalities. No effusions appreciated. Neurologic: Awake and alert, oriented. CN II through XII are grossly intact. Speech is fluent. Nonfocal exam. Psychiatric: Appropriate cooperative during my exam. Results & Data Results & Data Vital Signs (Past 12 Hours) Vital Signs Temp Pulse Resp BP Pulse Ox O2 Del Method FiO2 07/12/25 16:10 36.8 C 86 18 155/70 H 91 Room Air 07/12/25 14:45 77 18 92 Room Air 07/12/25 11:11 36.6 C 91 H 20 134/83 91 Room Air 07/12/25 10:12 81 18 93 Room Air 07/12/25 07:18 86 18 93 Nasal Cannula 07/12/25 07:03 36.4 C L 83 17 145/79 H 98 BiPAP 30 Laboratory Results Hypercapnic and hypoxic respiratory failure, improving. Diagnostic Findings Chest x-ray was reviewed, no focal consolidation, some slight prominence of pulmonary vasculature. No effusions appreciated. No pneumothorax. PG Care Time/CCT Total # of Minutes Spent Total Time Spent with Patient: Total time spent is greater than 50% in coordination of care (as documented) at patient's floor/unit and/or counseling patient: Coding Level of Care Code 37010 IN/OBS CONSULT LVL 3,45M Diagnoses COPD exacerbation J44.1 Acute on chronic respiratory failure with hypoxia and hypercapnia J96.21; J96.22
[2025-07-12 19:11] LABS: Appearance Urine Clear (Clear); Glucose Urine UA Negative (Negative)
[2025-07-12] MEDS: MONTELUKAST SODIUM 10 MG TABLET PO SCH (21:05)
[2025-07-13] MEDS: AZITHROMYCIN 500 MG/255 ML BAG IV SCH (00:16)
[2025-07-13 08:42] LABS: Hematocrit (blood only) 34.0 % (42.0-52.0); Hemoglobin 10.7 g/dl (14.0-18.0); Immature Granulocytes # (auto) 0.09 K/uL (0.01-0.20); Immature Granulocytes % (auto) 0.6 %; Mean Corpuscular Hemoglobin 28.5 pg (25.0-34.0); Mean Corpuscular Volume 90.4 fL (80.0-100.0); Platelet Count 221 K/uL (130-400); RDW Standard Deviation 45.1 fL (36.4-46.3); Red Blood Count 3.76 M/uL (4.70-6.10); White Blood Count 15.38 K/ul (4.8-10.8)
[2025-07-13 09:02] LABS: Albumin Level 3.8 gm/dl (3.4-5.0); Anion Gap 10.0 (3-11); Blood Urea Nitrogen 28.0 mg/dl (6-23); Calcium 8.9 mg/dl (8.6-10.3); Carbon Dioxide 26.0 mmol/L (21-32); Chloride 101.0 mmol/L (98-107); Creatinine Clr Calc Pharmacy 40.5 ml/min; Glucose 238.0 mg/dl (70-99(Fasting)); Magnesium 2.1 mg/dl (1.7-2.4); Potassium 4.1 mmol/L (3.5-5.1); Sodium 137.0 mmol/L (136-145)
--- NOTE | 2025-07-13 11:04 | XCELERA ---
[id number]
--- NOTE | 2025-07-13 13:07 | Pulmonology Progress Note ---
Date of Service July 13, 2025 Assessment & Plan (1) COPD exacerbation: (2) Acute on chronic respiratory failure with hypoxia and hypercapnia: (3) Aortic stenosis: Plan Patient has clinically improved with steroids and bronchodilators. I reviewed his history, may be an element of COPD/asthma overlap given his eosinophilia and high IgE level. May benefit from a biologic such as omalizumab in the future. Has documented allergies. I agree with steroids given his wheezing and hypercapnia. I will transition him to p.o. prednisone 40 mg starting tomorrow to complete 5 days. Continue nebulized therapies at this time with Nini Molina. Resume Breztri upon discharge. Continue montelukast. Given his recurrent exacerbations and hypercapnia he may benefit from NIV at home. Clinically much improved today, on room air. I will order overnight pulse oximetry to be performed tonight on room air. Will obtain ABG in the morning on room air. Patient had an echocardiogram that shows moderate aortic stenosis. This may contribute to his dyspnea on exertion.. Please ensure that patient is evaluated for possible home oxygen with ambulation upon discharge. Upon discharge she needs to see his primary biological sciences instructor (Dr. Interiano) in 2 to 3 weeks. Thank you for this consultation. I will follow along with you. Admission and Anticipated Discharge Date Admission Date: July 12, 2025 Subjective Patient seen and examined today. is at bedside again. He says that he is feeling well. He was able to get up and ambulate to the bathroom without becoming short of breath. He remains on room air. Review of Systems Review of Systems: Negative except as in HPI. Physical Exam Physical Exam: Physical examination: General: Well-appearing, well-nourished and not in acute distress. HEENT: Normocephalic, atraumatic. Extraocular movements intact. Sclera are nonicteric. No JVD appreciated. Skin: Warm and dry. No rashes appreciated. No jaundice appreciated. Cardiovascular: Heart is a regular rate and rhythm, no murmurs appreciated on my exam. No significant lower extremity edema. Lungs: On room air, some wheezing appreciated on the left which is improved compared to yesterday. No crackles. Nontachypneic. Musculoskeletal: Normal muscle mass and tone. No gross joint deformity abnormalities. No effusions appreciated. Neurologic: Awake and alert, oriented. CN II through XII are grossly intact. Speech is fluent. Nonfocal exam. Psychiatric: Appropriate cooperative during my exam. Results & Data Results & Data Vital Signs (Past 12 Hours) Vital Signs Temp Pulse Pulse Pulse Resp BP BP 07/13/25 11:25 36.5 C 108 H 16 147/82 H 07/13/25 10:19 114 H 18 07/13/25 09:31 07/13/25 06:50 77 18 07/13/25 05:59 88 07/13/25 04:46 36.9 C 95 H 18 149/81 H Pulse Ox O2 Del Method O2 Flow Rate 07/13/25 11:25 95 Room Air 07/13/25 10:19 93 Room Air 07/13/25 09:31 Room Air 07/13/25 06:50 92 Room Air 07/13/25 05:59 07/13/25 04:46 96 Nasal Cannula 2 PG Care Time/CCT Total # of Minutes Spent Total Time Spent with Patient: Total time spent is greater than 50% in coordination of care (as documented) at patient's floor/unit and/or counseling patient: Coding Level of Care Code 27023 SUB INP/OBS CARE 2/35MIN Diagnoses COPD exacerbation J44.1 Acute on chronic respiratory failure with hypoxia and hypercapnia J96.21; J96.22 Aortic stenosis I35.0
--- NOTE | 2025-07-13 16:21 | Hospitalist Progress Note ---
Date of Service July 13, 2025 Assessment & Plan (1) Acute and chronic respiratory failure with hypoxia: (2) Nonischemic cardiomyopathy: (3) Lumbar spinal stenosis: (4) BPH (benign prostatic hyperplasia): (5) GERD (gastroesophageal reflux disease): Plan 84-year-old male with Gold C COPD presents with acute on chronic respiratory failure hypoxia and symptomatic shortness of breath. Pt was supported with Bipap and given steroids in the ER # acute exacerbation of chronic lung disease, pt continues on parenteral steroids, scheduled duonebs, continue montelukast use azithromycin for anti inflammatory affects pt is on chronic budesonide/formoterol, typically sees Dr Interiano Patient is steroids the p.o., concerned about nocturnal breathing will do a nocturnal oximetry test and a two-step oxygen test before discharge #Nonischemic cardiomyopathy perhaps acute exacerbation of heart failure reduced ejection fraction. Patient is echo shows an EF of 40 to 45% and given calcification of aortic valve cannot comment on aortic stenosis. Will give 1 dose of IV Lasix in the evening of 07/13. Will continue telmisartan or pharmacy substitute, carvedilol, Plavix/aspirin (dual antiplatelet might be for peripheral vascular disease). Patient gives description that this event occurred after eating at the [email or web address] and salt load was fine up until that point. This may be any more of an exacerbation of heart failure then chronic lung disease. #Glucose intolerance. Not sure if from stressful event. will continue to follow #Low back pain continue tramadolgood symptom control #BPH no signs of lower urinary symptoms at this time will continue finasteride and alfuzosin #DVT prevention will be early ambulation given his dual antiplatelet therapy. Admission and Anticipated Discharge Date Admission Date: July 12, 2025 Subjective Patient seen and examined today. is at bedside again. He says that he is feeling well. Patient remains on room air but has a baseline tachypnea. Physical Exam Physical Exam: pleasant on room air at rest scant exp wheezes more in the right lung than the left patient has also some coarse breath sounds more in the right lung than the left cardiac exam is regular but distant cannot auscultate the fine murmurs Results & Data Results & Data Vital Signs (Past 12 Hours) Vital Signs Temp Pulse Pulse Pulse Resp BP BP 07/13/25 16:09 98.4 F 94 H 18 137/66 07/13/25 16:03 10/14/25 16:03 07/13/25 14:21 92 H 16 07/13/25 13:02 94 H 07/13/25 11:25 97.7 F 108 H 16 147/82 H 07/13/25 10:19 114 H 18 07/13/25 09:31 07/13/25 06:50 77 18 07/13/25 05:59 88 07/13/25 04:46 98.4 F 95 H 18 149/81 H Pulse Ox O2 Del Method O2 Flow Rate 07/13/25 16:09 88 L Room Air 07/13/25 16:03 92 Nasal Cannula 2 07/13/25 16:03 86 L Room Air 07/13/25 14:21 92 Nasal Cannula 2 07/13/25 13:02 07/13/25 11:25 95 Room Air 07/13/25 10:19 93 Room Air 07/13/25 09:31 Room Air 07/13/25 06:50 92 Room Air 07/13/25 05:59 07/13/25 04:46 96 Nasal Cannula 2 Laboratory Results Reviewed CBC mild leukocytosis secondary to steroid demargination Reviewed chemistry PG Care Time/CCT Total # of Minutes Spent Total Time Spent with Patient: Total time spent is greater than 50% in coordination of care (as documented) at patient's floor/unit and/or counseling patient: Coding Level of Care Code 85218 SUB INP/OBS CARE 3/50MIN Diagnoses Acute and chronic respiratory failure with hypoxia J96.21 Nonischemic cardiomyopathy I42.8 Spinal stenosis of lumbar region with neurogenic claudication M48.062 Neurogenic claudication status: with neurogenic claudication BPH (benign prostatic hyperplasia) N40.0 GERD (gastroesophageal reflux disease) K21.9 (3) Lumbar spinal stenosis Neurogenic claudication status: with neurogenic claudication Qualified Code(s): M48.062 - Spinal stenosis, lumbar region with neurogenic claudication
[2025-07-13] MEDS: FUROSEMIDE INJ 20 MG/2 ML VIAL IV ONE (16:43)
[2025-07-14 05:23] LABS: HCO3 ABG 31 mmol/L (19-24); Oxygen Saturation ABG 92.5 % (90-95); PCO2 ABG 43 mmHg (35-46); PO2 ABG 64 mmHg (80-95)
[2025-07-14 05:26] LABS: Allen Test Pos (Pos)
[2025-07-14 06:53] LABS: Hematocrit (blood only) 33.8 % (42.0-52.0); Hemoglobin 11.3 g/dl (14.0-18.0); Immature Granulocytes # (auto) 0.08 K/uL (0.01-0.20); Immature Granulocytes % (auto) 0.5 %; Mean Corpuscular Hemoglobin 30.4 pg (25.0-34.0); Mean Corpuscular Volume 90.9 fL (80.0-100.0); Platelet Count 242 K/uL (130-400); RDW Standard Deviation 45.7 fL (36.4-46.3); Red Blood Count 3.72 M/uL (4.70-6.10); White Blood Count 15.96 K/ul (4.8-10.8)
[2025-07-14 07:14] LABS: Albumin Level 3.2 gm/dl (3.4-5.0); Anion Gap 7.0 (3-11); Blood Urea Nitrogen 32.0 mg/dl (6-23); Calcium 8.7 mg/dl (8.6-10.3); Carbon Dioxide 31.0 mmol/L (21-32); Chloride 100.0 mmol/L (98-107); Creatinine Clr Calc Pharmacy 39.8 ml/min; Glucose 127.0 mg/dl (70-99(Fasting)); Magnesium 2.2 mg/dl (1.7-2.4); Potassium 3.6 mmol/L (3.5-5.1); Sodium 138.0 mmol/L (136-145)
--- NOTE | 2025-07-14 07:38 | Pulmonology Progress Note ---
Date of Service July 14, 2025 Assessment & Plan (1) COPD exacerbation: (2) Acute on chronic respiratory failure with hypoxia and hypercapnia: (3) Aortic stenosis: Plan Patient has clinically improved with steroids and bronchodilators. I reviewed his history, may be an element of COPD/asthma overlap given his eosinophilia and high IgE level. May benefit from a biologic such as omalizumab in the future. Has documented allergies. I agree with steroids given his wheezing and hypercapnia. I will transition him to p.o. prednisone 40 mg starting tomorrow to complete 5 days. Continue nebulized therapies at this time with Nini Molina. Resume Breztri upon discharge. Continue montelukast. Clinically much improved today, on room air. Patient's ABG this morning showing a pH of 7.46 and pCO2 43. He does not qualify for home NIV at this time based on hypercapnia. Did have 1 desaturation event overnight on pulse oximetry study, his mean oxygen was 91%. Patient had an echocardiogram that shows moderate aortic stenosis. This may contribute to his dyspnea on exertion. Please ensure that patient is evaluated for possible home oxygen with ambulation upon discharge. Upon discharge she needs to see his primary trash collector (Dr. Interiano) in 2 to 3 weeks. Thank you for this consultation. I will sign off. Please call with any questions. Admission and Anticipated Discharge Date Admission Date: July 12, 2025 Subjective Patient examined during rounds today. He is feeling well. Reports that he did desaturate when ambulating and is being arranged for home oxygen. No wheezing appreciated on examination today. Review of Systems Review of Systems: Negative except as in HPI. Physical Exam Physical Exam: Physical examination: General: Well-appearing, well-nourished and not in acute distress. HEENT: Normocephalic, atraumatic. Extraocular movements intact. Sclera are nonicteric. No JVD appreciated. Skin: Warm and dry. No rashes appreciated. No jaundice appreciated. Cardiovascular: Heart is a regular rate and rhythm, no murmurs appreciated on my exam. No significant lower extremity edema. Lungs: On room air, good air movement without wheezing. No crackles. Nontachypneic. Musculoskeletal: Normal muscle mass and tone. No gross joint deformity abnormalities. No effusions appreciated. Neurologic: Awake and alert, oriented. CN II through XII are grossly intact. Speech is fluent. Nonfocal exam. Psychiatric: Appropriate cooperative during my exam. Results & Data Results & Data Vital Signs (Past 12 Hours) Vital Signs Temp Pulse Pulse Pulse Resp BP Pulse Ox 07/14/25 07:14 36.5 C 75 18 173/99 H 99 07/14/25 07:08 78 16 91 07/14/25 04:04 36.5 C 93 H 18 150/88 H 91 07/14/25 02:29 67 07/14/25 01:00 07/13/25 22:47 36.6 C 98 H 18 142/89 H 90 07/13/25 22:16 90 07/13/25 21:44 103 H 07/13/25 20:03 92 H 18 98 Pulse Ox Pulse Ox O2 Del Method O2 Del Method O2 Del Method O2 Flow Rate 07/14/25 07:14 Nasal Cannula 2 07/14/25 07:08 Room Air 07/14/25 04:04 Room Air 07/14/25 02:29 92 Room Air 07/14/25 01:00 91 Room Air 07/13/25 22:47 Room Air 07/13/25 22:16 93 Room Air 07/13/25 21:44 07/13/25 20:03 Room Air PG Care Time/CCT Total # of Minutes Spent Total Time Spent with Patient: Total time spent is greater than 50% in coordination of care (as documented) at patient's floor/unit and/or counseling patient: Coding Level of Care Code 01682 SUB INP/OBS CARE 2/35MIN Diagnoses COPD exacerbation J44.1 Acute on chronic respiratory failure with hypoxia and hypercapnia J96.21; J96.22 Aortic stenosis I35.0
[2025-07-14] MEDS ORDERED: predniSONE 20 MG TAB PO SCH (09:00)
[2025-07-14] MEDS: predniSONE 20 MG TAB PO SCH (09:03)
[2025-07-14 14:36] VITALS: O2SAT 90
[2025-07-14 15:23] VITALS: RESP 20; TEMP 97.9
--- NOTE | 2025-07-14 15:43 | Discharge Summary ---
Discharge Summary Date of Service July 14, 2025 Principal Dx & Hospital Course #1 = Principal Diagnosis (1) Acute and chronic respiratory failure with hypoxia: (2) Nonischemic cardiomyopathy: (3) Lumbar spinal stenosis: (4) BPH (benign prostatic hyperplasia): (5) GERD (gastroesophageal reflux disease): Shelley George is an 84 year old male admitted to [facility] from July 12 - 2024 due to hypoxia and severe shortness of breath. He was treated with steroids and nebulizers for COPD exacerbation and improved over his hospitalization but still requiring 2LPM O2 at night and on exertion. He should continue on routine albuterol nebulizers for the next 2 days every 6 hours then as needed. Continue with your Breztri inhaler for maintenance. He will follow up with his credit negotiator for ongoing recommendations. He was also previously diagnosed with non ischemic cardiomyopathy which is actually improved on recent echocardiogram in hospital. No definitive heart failure but you did appear to improve on a low dose of Lasix to help keep your lungs dry therefore recommend he continues on furosemide 20mg PO daily on discharge and follow up with your enrollment advisor for ongoing recommendations. Admission HPI Per Admitting Provider The patient is an 84-year-old male with past medical history including chronic respiratory failure with hypoxia and hypercapnia, left bundle branch block, nonischemic cardiomyopathy, lumbar spinal stenosis and radiculopathy, BPH with LUTS, GERD, atrial fibrillation, carotid artery stenosis, anemia, COPD with exacerbations, asthma, hypersomnia, chronic bronchitis, and aneurysm of infrarenal abdominal aorta. The patient was brought to the emergency department via EMS, after patient's family, in particular his , became concerned that he might be dying at home due to severe breathing issues. When EMS arrived, he was found to be in acute respiratory failure with hypoxia, and placed on BiPAP. EMS reports that the patient seemed to improve significantly over the most recent 10 minutes prior to transport while being on BiPAP. 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 Upon arrival to the emergency department, patient was communicative, had good color, no longer appears cyanotic as noted in the outpatient setting. He had recently been admitted to [facility] from 07/07- with the same presentation, in addition to his usual inhalers, was discharged on azithromycin 2050 mg by mouth daily, which he reports taking as directed. From the ED the patient received the following: DuoNeb treatment. Laboratories revealed potassium of 5.0, glucose 236, creatinine 1.42, and a negative respiratory BioFire test. Patient was then referred for evaluation for admission to the [facility] hospitalist service. Discharge Plan Discharge Items Patient Disposition: Home - Self-Care Reason For Visit: ACUTE ON CHRONIC RESP FAILURE W/HYPOXIA/HYPERCAPNE Discharge Diagnosis: COPD exacerbation Moderate aortic stenosis Condition on Discharge: Fair Activity: Resume your previous activity Non-emergency contact: Primary Care Provider Call non-emergency contact if: you have any medication questions and your symptoms worsen Follow-up/Referrals: Tom Carter MD [Physician] - 07/16/25 9:00 am (Schedule with Moises Brooks PA-C) Alfred Interiano MD, [facility] [Physician] - 07/15/25 3:30 pm (COPD/asthma exacerbation) Hollie Proctor MD [Primary Care Provider] - 07/20/25 1:00 pm Diet: Heart Healthy and Low Sodium (2gm) Addtl Attending Provider Instructions: You were admitted to [facility] from July 12 - 2024 due to hypoxia and severe shortness of breath. You were treated with steroids and nebulizers for COPD exacerbation and improved over your hospitalization but still requiring 2LPM O2 at night and on exertion. You should continue on routine albuterol nebulizers for the next 2 days every 6 hours then as needed. Continue with your Breztri inhaler for maintenance. Please follow up with your credit negotiator for ongoing recommendations. You were also previously diagnosed with non ischemic cardiomyopathy which is actually improved on your echocardiogram in hospital. No definitive heart failure but you did appear to improve on a low dose of Lasix to help keep your lungs dry therefore recommend you continue on a low dose of this on discharge and follow up with your enrollment advisor for ongoing recommendations. Pending Studies at Discharge: No Stand-Alone Forms: My [facility] Tern, Smoking Cessation Medications and DC Order Prescriptions: New furosemide 20 mg tablet 20 mg PO DAILY Qty: 30 0RF prednisone 20 mg tablet 40 mg PO DAILY 4 Days Qty: 8 0RF Continued magnesium oxide 400 mg magnesium capsule 400 mg PO QAM Qty: 0 telmisartan [Micardis] 40 mg tablet 40 mg PO QAM Qty: 90 3RF sildenafil 100 mg tablet 100 mg PO DAILY PRN (Reason: sexual activity) Qty: 20 11RF Rx Instructions: administer 30 minutes to 4 hours before activity simvastatin 20 mg tablet 20 mg PO DAILY 90 Days Qty: 90 2RF pantoprazole 40 mg tablet,delayed release (DR/EC) 40 mg PO QAM 90 Days Qty: 90 4RF montelukast [Singulair] 10 mg tablet 10 mg PO HS Qty: 90 3RF carvedilol 6.25 mg tablet 6.25 mg PO BID Qty: 180 3RF Rx Instructions: must administer with a meal/food duloxetine 60 mg capsule,delayed release(DR/EC) 60 mg PO DAILY Qty: 90 3RF aspirin 81 mg tablet,delayed release (DR/EC) 81 mg PO DAILY (DME) nebulizers Misc See Rx Instructions .ROUTE .MEDSUPPLY Qty: 1 0RF Rx Instructions: Q 4HR WITH TUBING & SUPPLIES - DX: COPD finasteride 5 mg tablet 5 mg PO DAILY Qty: 90 3RF Breztri Aerosphere 160-9-4.8 mcg/actuation HFA aerosol inhaler 2 inh inhalation BID Qty: 10.7 12RF alfuzosin 10 mg tablet extended release 24 hr 10 mg PO DAILY Qty: 90 3RF Rx Instructions: administer after the same meal each day Multivitamin 50 Plus Tablet 1 tab PO DAILY clopidogrel 75 mg Tablet 75 mg PO QAM 30 Days Qty: 30 3RF famotidine [Pepcid] 20 mg Tablet 20 mg PO HS Systane (PF) 0.4-0.3 % Dropperette 1 drp OPB BID cholecalciferol (vitamin D3) [Vitamin D3] 125 mcg (5,000 unit) tablet 125 mcg PO DAILY Qty: 30 0RF potassium citrate 99 mg Capsule 99 mg PO DAILY PreserVision AREDS-2 250-90-40-1 mg Capsule 1 tab PO BID Discontinued azithromycin 250 mg tablet 250 mg PO DAILY 4 Days Qty: 4 0RF Rx Instructions: start on day 2 of therapy No Action albuterol sulfate [Ventolin HFA] 90 mcg/actuation HFA aerosol inhaler 2 inh inhalation Q4H PRN (Reason: shortness of breath) Qty: 8.5 3RF levalbuterol HCl 1.25 mg/3 mL solution for nebulization 1.25 mg INHALATION Q4H PRN (Reason: Shortness Of Breath Or Wheezing) Qty: 90 3RF (DME) Portable Oxygen Misc See Rx Instructions .MEDSUPPLY Qty: 1 0RF Rx Instructions: Oxygen 2 liters continuous via nasal cannula on exertion with portable concentrator. KAELYN [id number] Discharge Orders: Discharge Order (Routine); Ordered 07/14/25 Ordered By: Elliot Garrett Admission Data Admit Date/Time: 07/12/25 00:02 Attending Provider: Elliot Garrett Admit Provider: Chip Novak Primary Care Provider: Hollie Proctor Other Providers: Chip Novak; Emerald Carrillo Other Interventions: Discharge Summary Assessment (RN) Last Done: 07/14/25 15:57 Hospital Stay Data Consultations 07/11/25 23:42 ED Decision to Admit Stat 07/12/25 07:47 Consult Pulmonology Routine Pending Results Patient Have Any Pending Studies at Discharge: No Discharge Instructions Given to Patient (Per Discharging Provider) You were admitted to [facility] from July 12 - 2024 due to hypoxia and severe shortness of breath. You were treated with steroids and nebulizers for COPD exacerbation and improved over your hospitalization but still requiring 2LPM O2 at night and on exertion. You should continue on routine albuterol nebulizers for the next 2 days every 6 hours then as needed. Continue with your Breztri inhaler for maintenance. Please follow up with your credit negotiator for ongoing recommendations. You were also previously diagnosed with non ischemic cardiomyopathy which is actually improved on your echocardiogram in hospital. No definitive heart failure but you did appear to improve on a low dose of Lasix to help keep your lungs dry therefore recommend you continue on a low dose of this on discharge and follow up with your enrollment advisor for ongoing recommendations. Coding Diagnoses Acute and chronic respiratory failure with hypoxia J96.21 Nonischemic cardiomyopathy I42.8 Spinal stenosis of lumbar region with neurogenic claudication M48.062 Neurogenic claudication status: with neurogenic claudication BPH (benign prostatic hyperplasia) N40.0 GERD (gastroesophageal reflux disease) K21.9
[2025-07-14 15:59] VITALS: BP 147/82; PULSE 77
== END 2025-07-14 16:48 | disposition home or self-care (01) | DRG 189 ==
LOC: SUATTDRO → ED 22:53 → SUATTDRO 07-12 00:02 → 2S 07-12 00:02

== ENCOUNTER 2025-08-30 00:55 | Inpatient (IN) ==
--- NOTE | 2025-08-30 01:02 | Emergency Department Note ---
Impression & Plan Acute on chronic respiratory failure, COPD (chronic obstructive pulmonary disease), Hypertension ED Provider Note NAME: BREN CURTIS AGE: 85 SEX: M : 1940 ARRIVES VIA: Ambulance INFORMANT: Patient ED PROVIDER(S): Kaden Islas MD CHIEF COMPLAINT: Shortness of breath PLAN: Disposition: Admit MEDICAL DECISION MAKING: The patient is a pleasant 85-year-old gentleman with past medical history of chronic respiratory failure on home oxygen, COPD, CHF, CKD, hypertension, hyperlipidemia, paroxysmal atrial fibrillation who presents to the emergency department via EMS for evaluation of acute onset shortness of breath this evening where the patient was noted to be labored with work of breathing and O2 saturation in the mid 80s on his home 2 L nasal cannula. Patient was placed on BiPAP and transferred to the emergency department. Patient denies any fevers, nausea, vomiting, diarrhea. He denies productive sputum. On evaluation the patient is in mild respiratory distress with increased work of breathing, afebrile with heart rate in the 90s, respiratory rate in the 30s and blood pressure 180s/110s. He appears clinically dry. Lungs with diffuse wheezes bilaterally. EKG without overt acute ischemia. CXR negative for acute cardiopulmonary process per my personal preliminary review/interpretation. WBC 12.8 K with neutrophilia but no left shift, nonspecific. H/H similar to prior. Platelets within normal limits. VBG demonstrates respiratory acidosis with pCO2 of 89 and pH of 7.15. Chemistry without metabolic acidosis or significant compensation for respiratory acidosis. LFTs are unremarkable. High-sensitivity troponin 10.9, within normal limits. Lipase is normal. Procalcitonin is not elevated. UA without evidence of infection. Respiratory BioFire was negative. Patient was treated with Solu-Medrol, Xopenex as well as guaifenesin and maintained on BiPAP for acute on chronic respiratory failure with hypercapnia and hypoxia. Patient was referred to the hospitalist service for further management. Case was discussed with Dr. Novak, [facility] [place] hospitalist, who will evaluate the patient for admission. Further management per admitting team. Triage Nursing notes reviewed and agree them. Prior/external medical records reviewed Vital Signs: reviewed Differential diagnosis: Reactive airway disease, pneumonia, pneumothorax, COPD, CHF, infections, cardiac ischemia, pulmonary embolism, musculoskeletal, gastrointestinal, as well as other pathologies. ER treatment provided: See below. Diagnostics interpreted by me: ECG: Sinus rhythm, first-degree AV block, PVCs, 90 bpm, nonspecific intraventricular block, LVH, no overt ST elevation or depression, QTc 513, QS 130. Cardiac Monitoring: An order for continuous cardiac monitoring was placed and demonstrated Sinus rhythm, first-degree AV block, PVCs, 90 bpm. Laboratory studies: See below Imaging studies: See below Consultation(s): Case was discussed with Dr. Novak, [facility] [place] [facility] hospitalist, who will evaluate the patient for admission. HPI: Per MDM. ROS: See above HPI for pertinent positives & negatives. A total of 10 systems reviewed and were otherwise negative. VITALS:See Below PHYSICAL EXAMINATION: GENERAL: Awake, alert, ill-appearing, mild respiratory no distress HENT: Normocephalic, atraumatic. Oropharynx with dry mucous membranes and otherwise unremarkable. EYES: Normal conjunctiva. Sclera non-icteric. NECK: Supple. No nuchal rigidity. FROM. No JVD. RESPIRATORY: Diffuse wheezes bilaterally with increased work of breathing. CARDIAC: Regular rate, normal rhythm. Extremities warm and well perfused. Pulses equal. ABDOMEN: Soft, non-distended. No tenderness to palpation. No rebound or guarding. No masses. MUSCULOSKELETAL: Chest examination reveals no tenderness. The back is symmetrical on inspection without obvious abnormality. There is no CVA tenderness to palpation. No joint edema. LOWER EXTREMITIES: Calves are equal size bilaterally and non-tender. No edema. No discoloration. NEURO: Normal sensorium. No sensory or motor deficits noted. SKIN: No rash or jaundice noted. ED COURSE: Critical Care: I have personally spent greater than 35 minutes of critical care time in the direct management of this patient. This includes bedside care, interpretation of diagnostic studies, and testing, discussion with consultants, patient, and family members, and other required patient management activities. This 35 minutes is in excess of all separately billable procedures. Kaden Islas MD Past Med/Surg History Problem List Acute on chronic respiratory failure (Acute) Elevated brain natriuretic peptide (BNP) level Chronic respiratory failure Aortic stenosis COPD exacerbation Acute kidney injury Acute on chronic respiratory failure with hypoxia and hypercapnia Acute and chronic respiratory failure with hypercapnia (Acute) Acute and chronic respiratory failure with hypoxia LBBB (left bundle branch block) Short of breath on exertion Skin tear of left upper extremity Fatigue Lumbar radiculopathy Lumbar facet joint syndrome Erectile dysfunction Benign localized prostatic hyperplasia with lower urinary tract symptoms (LUTS) Peripheral arteriosclerosis Osteoarthritis Nocturnal hypoxia o2 2l at hs Hypertension (Acute) Atrial fibrillation dx 7 yrs ago Bilateral shoulder pain 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) Carotid artery stenosis Neutrophilic leukocytosis Anemia COPD (chronic obstructive pulmonary disease) (Chronic) Impaired fasting glucose (Chronic) Asthma-chronic obstructive pulmonary disease overlap syndrome Aortic aneurysm Status post placement of implantable loop recorder Ground glass opacity present on imaging of lung Insomnia Hypersomnia Ex-smoker Chronic bronchitis Aneurysm of infrarenal abdominal aorta 04/18/2022 - 7cm x 6.7 cm Medical History Nonischemic cardiomyopathy Lumbar spinal stenosis Severe at L4-5 GERD (gastroesophageal reflux disease) BPH (benign prostatic hyperplasia) Vitamin D deficiency COVID-19 Weakness Ischemia of toe Implantable loop recorder present dr jacobson - 3 yrs ago Benign localized prostatic hyperplasia with lower urinary tract symptoms (LUTS) History of tobacco use Insomnia Hearing loss Erectile dysfunction Syncopal episodes summer 2020 COPD (chronic obstructive pulmonary disease) CKD (chronic kidney disease) Surgical History S/P endovascular aneurysm repair S/P AAA repair using bifurcation graft Hx of colonoscopy Hx of appendectomy History of left hip replacement History of right hip replacement Family History Other Coronary heart disease Diabetes Social History Smoking Status: Former smoker Tobacco Type: Cigarettes Age Started Using Tobacco: 18; Age Quit Using Tobacco: 75; packs per day: 1; Cigarettes Per Day: 1pack; Second Hand Exposure: No; Do You Dip or Chew Tobacco: No; Hx Alcohol Use: No Hx Substance Use: No Preferred Language: Yoruba Communication Ability: Effective Visual Impairment: No Limitations Routing Machine Operator Required: No Beliefs That Will Affect Care: None marital status: Current Living Situation: Spouse current occupational status: retired How many Children do You have: 1 other: [employer] from [id number]. Discharge rank E4. No combat injury Feels Safe at Home: Yes Childhood Exposure to Second-Hand Smoke: No Diet: regular caffeine: Yes Dental Care, Regularly: No Physical Activity Frequency: Daily Seatbelt Use: always Sunscreen Use: Yes Assistive Devices: Cane, Glasses and Oxygen - Continuous Allergies Allergies Allergy/AdvReac Type Severity Reaction Status Date / Time No Known Allergies Allergy Verified 07/19/25 11:07 Home Meds Home Medications Medication Instructions Recorded Confirmed famotidine 20 mg tablet (Pepcid) 20 mg PO HS 06/03/21 08/30/25 magnesium oxide 400 mg PO QAM #0 caps 01/16/22 08/30/25 [id number] 1 tab PO DAILY 04/24/22 08/30/25 tablet (Multivitamin 50 Plus tablet) aspirin 81 mg tablet,delayed 81 mg PO DAILY 02/07/23 08/30/25 release potassium citrate 99 mg capsule 99 mg PO DAILY 07/07/25 08/30/25 vit C 250 mg-vit E 90 mg-zinc 40 1 tab PO BID 07/07/25 08/30/25 mg-copper 1 [id number] capsule (PreserVision AREDS-2) celecoxib 50 mg capsule 50 mg PO BID PRN Pain 08/30/25 08/30/25 peg 400-propylene glycol (PF) 0.4 1 drp OPB BID 08/30/25 08/30/25 %-0.3 % eye drops in a dropperette Previous Rx's Medication Instructions Recorded nebulizers #1 ea 09/07/20 clopidogrel 75 mg tablet 75 mg PO QAM 30 days #30 tabs 08/10/22 cholecalciferol (vitamin D3) 125 125 mcg PO DAILY #30 tabs 06/19/23 mcg (5,000 unit) tablet (Vitamin D3) telmisartan 40 mg tablet (Micardis) 40 mg PO QAM #90 tabs 06/30/24 finasteride 5 mg tablet 5 mg PO DAILY #90 tabs 10/01/24 alfuzosin 10 mg tablet,extended 10 mg PO DAILY #90 tabs 11/24/24 release 24 hr sildenafil 100 mg tablet 100 mg PO DAILY PRN sexual 12/31/24 activity #20 tabs simvastatin 20 mg tablet 20 mg PO DAILY 90 days #90 tabs 03/09/25 budesonide 160 mcg-glycopyr 9 2 inh inhalation BID COPD #10.7 03/11/25 mcg-formot 4.8 mcg/actuation HFA grams inhaler (Breztri Aerosphere) pantoprazole 40 mg tablet,delayed 40 mg PO QAM 90 days #90 tabs 03/18/25 release montelukast 10 mg tablet 10 mg PO HS #90 tabs 03/22/25 (Singulair) carvedilol 6.25 mg tablet 6.25 mg PO BID #180 tabs 05/27/25 duloxetine 60 mg capsule,delayed 60 mg PO DAILY #90 caps 06/21/25 release furosemide 20 mg tablet 20 mg PO DAILY #30 tabs 07/14/25 Portable Oxygen #1 ea 07/15/25 albuterol sulfate 90 mcg/actuation 2 inh inhalation Q4H PRN shortness 07/15/25 aerosol inhaler (Ventolin HFA) of breath #8.5 grams levalbuterol HCl 1.25 mg/3 mL 1.25 mg (3 mL) inhalation Q4H PRN 07/15/25 solution for nebulization Shortness Of Breath Or Wheezing #90 mL mepolizumab 100 mg/mL subcutaneous 100 mg subcut Q4WK #1 mL 07/28/25 auto-injector (Nucala) Results & Data (ED) Vital Signs Vital Signs - 24 hr 08/30/25 00:57 08/30/25 00:59 08/30/25 01:11 Temperature 36.4 C Temperature Source Oral Pulse Rate 94 H 96 H Pulse Rate [Apical] 92 H Pulse Rhythm Regular Pulse Rhythm [Apical] Regular Respiratory Rate 30 H 30 H Respiratory Effort / Characteristics Labored Labored Respiratory Depth Deep Deep Blood Pressure 182/114 H Blood Pressure [Right Arm] 163/104 H Blood Pressure Mean 136 Blood Pressure Mean [Right Arm] 123 Pulse Oximetry 100 98 Oxygen Delivery Method BiPAP BiPAP Fraction of Inspired Oxygen Sepsis Recent Fever Within 48 Hours No Sepsis New/Unexplained Change in Mental Status No Sepsis Action Taken by Nursing No Action Required 08/30/25 01:17 08/30/25 01:17 08/30/25 01:27 Temperature Temperature Source Pulse Rate 94 H 90 Pulse Rate [Apical] 94 H Pulse Rhythm Regular Pulse Rhythm [Apical] Respiratory Rate 31 H 31 H Respiratory Effort / Characteristics Spontaneous Accessory Muscle Use Labored Respiratory Depth Blood Pressure Blood Pressure [Right Arm] Blood Pressure Mean Blood Pressure Mean [Right Arm] Pulse Oximetry 100 100 94 Oxygen Delivery Method BiPAP BiPAP Fraction of Inspired Oxygen 28 28 Sepsis Recent Fever Within 48 Hours Sepsis New/Unexplained Change in Mental Status Sepsis Action Taken by Nursing 08/30/25 01:32 08/30/25 02:09 Temperature Temperature Source Pulse Rate Pulse Rate [Apical] 90 84 Pulse Rhythm Pulse Rhythm [Apical] Respiratory Rate 27 H 17 Respiratory Effort / Characteristics Labored Respiratory Depth Blood Pressure Blood Pressure [Right Arm] 128/75 123/78 Blood Pressure Mean Blood Pressure Mean [Right Arm] 92 93 Pulse Oximetry 94 92 Oxygen Delivery Method BiPAP BiPAP Fraction of Inspired Oxygen Sepsis Recent Fever Within 48 Hours Sepsis New/Unexplained Change in Mental Status Sepsis Action Taken by Nursing Laboratory Data Attestation: I reviewed the patient's lab results. 08/30/25 01:08 08/30/25 01:08 Lab Results 08/30/25 08/30/25 08/30/25 Range/Units 01:08 01:15 01:16 WBC 12.85 H (4.8-10.8) K/ul RBC 4.07 L (4.70-6.10) M/uL Hgb 11.8 L (14.0-18.0) g/dL POC Hgb 11.9 L (14.0-18.0) g/dl Hct 37.6 L (42.0-52.0) % POC Hct 35 L (42-52) % MCV 92.4 (80.0-100.0) fL MCH 29.0 (25.0-34.0) pg MCHC 31.4 L (32.0-36.0) g/dL RDW Std Deviation 45.7 (36.4-46.3) fL RDW Coeff of Alan 13.6 (11.5-14.5) % Plt Count 289 (130-400) K/uL MPV 9.1 L (9.4-12.4) fL Immature Gran % (Auto) 0.3 % Neut % (Auto) 71.7 % Lymph % (Auto) 14.2 % Walsh % (Auto) 5.5 % Eos % (Auto) 7.5 % Baso % (Auto) 0.8 % Neut # (Auto) 9.20 H (1.40-6.50) K/uL Lymph # (Auto) 1.83 (1.20-3.40) K/uL Walsh # (Auto) 0.71 H (0.11-0.59) K/uL Eos # (Auto) 0.97 H (0.00-0.50) K/uL Baso # (Auto) 0.10 (0.00-0.20) K/uL Immature Gran # (Auto) 0.04 (0.01-0.20) K/uL PT 11.4 (9.0-12.0) Seconds INR 1.1 (0.9-1.1) VBG pH 7.15 L (7.36-7.41) VBG pCO2 89 H (38-50) mmHg VBG pO2 32 mmHg VBG HCO3 31 mmol/L VBG O2 Saturation < 60.0 % VBG Base Excess -0.5 mEq/L POC Sodium 141 (135-144) mmol/L Sodium 140 (136-145) mmol/L POC Potassium 4.5 (3.3-5.0) mmol/L Potassium 4.7 (3.5-5.1) mmol/L POC Chloride 103 (101-112) mmol/L Chloride 104 (98-107) mmol/L Carbon Dioxide 30 (21-32) mmol/L POC Total CO2 29 (24-31) mmol/L Anion Gap 6 (3-11) POC Anion Gap 15.0 L (16-25) mmol/L POC BUN 31 H (7-18) mg/dl BUN 28 H (6-23) mg/dl Creatinine 1.25 (0.6-1.4) mg/dl POC Creatinine 1.4 H (0.6-1.3) mg/dl Est Cr Clr Drug Dosing 39.8 ml/min eGFR 55.73 BUN/Creatinine Ratio 22.4 H (10-20) Glucose 195 H (70-99(Fasting)) mg/dl POC Glucose (other) 179 H (70-99) mg/dl Calcium 8.9 (8.6-10.3) mg/dl POC Ioniz Calcium Gato 1.09 L (1.12-1.32) mmol/l Magnesium 2.1 (1.7-2.4) mg/dl Total Bilirubin 0.3 (0.2-1.0) mg/dl AST 18 (13-39) U/L ALT 10 (7-52) U/L Alkaline Phosphatase 103 (34-104) U/L Troponin I High Sens 10.9 (0-20) pg/ml Total Protein 6.9 (6.0-8.3) gm/dl Albumin 3.9 (3.4-5.0) gm/dl Globulin 3.0 (2.5-4.0) gm/dl Albumin/Globulin Ratio 1.3 (0.9-2) Lipase 29 (11-82) U/L Procalcitonin < 0.02 (0-0.5) ng/ml Adenovirus (PCR) Not Detected (NotDetected) B. pertussis DNA (PCR) Not Detected (NotDetected) B.parapertussis DNA PCR Not Detected (NotDetected) C. pneumoniae DNA (PCR) Not Detected (NotDetected) Coronavirus OC43 (PCR) Not Detected (NotDetected) Coronavirus HKU1 (PCR) Not Detected (NotDetected) Coronavirus 229E (PCR) Not Detected (NotDetected) SARS-CoV-2 (PCR) Not Detected (NotDetected) Coronavirus NL63 (PCR) Not Detected (NotDetected) Human Metapneumovir PCR Not Detected (NotDetected) Influenza Type A (PCR) Not Detected (NotDetected) Influenza Type B (PCR) Not Detected (NotDetected) M. pneumoniae (PCR) Not Detected (NotDetected) Parainfluenza 1 (PCR) Not Detected (NotDetected) Parainfluenza 2 (PCR) Not Detected (NotDetected) Parainfluenza 3 (PCR) Not Detected (NotDetected) Parainfluenza 4 (PCR) Not Detected (NotDetected) RSV (PCR) Not Detected (NotDetected) Entero/Rhino (PCR) Not Detected (NotDetected) Administered Medications Azithromycin (Zithromax) 500 mg in 255 mls @ 127.5 mls/hr IV Q24H MARISA Stop: 09/06/25 04:29 Last Admin: 08/30/25 04:50 Dose: 127.5 mls/hr Documented By: [facility] Methylprednisolone 40 mg/ (Syringe) 0.64 mls @ 1.5 mls/min IV Q8H MARISA Stop: 09/29/25 05:59 Last Admin: 08/30/25 04:50 Dose: 1.5 mls/min Documented By: [facility] Discontinued Medications Levalbuterol HCl (Levalbuterol Hcl 0.63 Mg/3 Ml Neb) 0.63 mg NEB NOW STA; Protocol Stop: 08/30/25 01:07 Last Admin: 08/30/25 01:15 Dose: 0.63 mg Documented By: [facility] Methylprednisolone (Methylprednisolone 125 Mg/2 Ml Vial) 125 mg IV NOW STA Stop: 08/30/25 01:07 Last Admin: 08/30/25 01:15 Dose: 125 mg Documented By: [facility] Imaging Data Radiologist's Impression: Chest X-Ray 08/30/25 01:06 EXAM: XR chest 1V portable CLINICAL HISTORY: sob TECHNIQUE: X-ray image of the chest is obtained in AP projection. 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 FINDINGS: Pulmonary Parenchyma: Stable fine basal subpleural reticulations, likely reflecting age-related interstitial changes There is no evidence of consolidation, collapse, or focal opacities. No pulmonary nodules are identified. There is no evidence of pleural effusion or pleural thickening. Heart and Mediastinum: The heart size and shape are normal. Calcific aortic arch panda. There is no mediastinal widening or masses. No hilar or mediastinal lymphadenopathy is present. Bony Thorax: The loop recorder device is still in place. The bony thorax appears intact without fractures or deformities. Soft Tissues: The soft tissues overlying the chest wall are unremarkable. IMPRESSION: 1. No acute cardiopulmonary abnormalities are identified. 2. Stable fine basal subpleural reticulations, likely reflecting age-related interstitial changes. 3. No interval time changes. Electronically signed by Adin Rivera 08-30-2025 02:01 AM Discharge Plan Visit Data Chief Complaint: Respiratory Distress Stated Complaint: SUDDEN SOB, ON BIPAP ED Provider: Kaden Islas Discharge Problem: Acute on chronic respiratory failure, COPD (chronic obstructive pulmonary disease), Hypertension Patient Disposition: Admitted As Inpatient Condition: Serious Discharge Instructions Interventions: ED Discharge Assessment Last Done: 08/30/25 03:45 Discharge Problem: Acute on chronic respiratory failure Qualifiers: Respiratory failure complication: hypoxia and hypercapnia Qualified Code(s): J 96.21 - Acute and chronic respiratory failure with hypoxia COPD (chronic obstructive pulmonary disease) Qualifiers: COPD type: unspecified COPD Qualified Code(s): J44.9 - Chronic obstructive pulmonary disease, unspecified Hypertension Qualifiers: Hypertension type: unspecified Qualified Code(s): I10 - Essential (primary) hypertension
[2025-08-30] MEDS: LEVALBUTEROL HCL 0.63 MG/3 ML NEB NEB STA (01:15)
[2025-08-30 01:27] LABS: Base Excess VBG -0.5 mEq/L; HCO3 VBG 31 mmol/L; Oxygen Saturation VBG < 60.0 %; PCO2 VBG 89 mmHg (38-50); PO2 VBG 32 mmHg; pH VBG 7.15 (7.36-7.41)
[2025-08-30 01:29] LABS: Hematocrit (blood only) 37.6 % (42.0-52.0); Hemoglobin 11.8 g/dL (14.0-18.0); Immature Granulocytes # (auto) 0.04 K/uL (0.01-0.20); Immature Granulocytes % (auto) 0.3 %; Mean Corpuscular Hemoglobin 29.0 pg (25.0-34.0); Mean Corpuscular Volume 92.4 fL (80.0-100.0); Platelet Count 289 K/uL (130-400); RDW Standard Deviation 45.7 fL (36.4-46.3); Red Blood Count 4.07 M/uL (4.70-6.10); White Blood Count 12.85 K/ul (4.8-10.8)
[2025-08-30 01:48] LABS: Alanine Aminotransferase 10.0 U/L (7-52); Albumin Globulin Ratio 1.3 (0.9-2); Albumin Level 3.9 gm/dl (3.4-5.0); Alkaline Phosphatase 103.0 U/L (34-104); Anion Gap 6.0 (3-11); Bilirubin,Total 0.3 mg/dl (0.2-1.0); Blood Urea Nitrogen 28.0 mg/dl (6-23); Calcium 8.9 mg/dl (8.6-10.3); Carbon Dioxide 30.0 mmol/L (21-32); Chloride 104.0 mmol/L (98-107); Creatinine Clr Calc Pharmacy 39.8 ml/min; Globulin 3.0 gm/dl (2.5-4.0); Glucose 195.0 mg/dl (70-99(Fasting)); Lipase 29.0 U/L (11-82); Magnesium 2.1 mg/dl (1.7-2.4); Potassium 4.7 mmol/L (3.5-5.1); Sodium 140.0 mmol/L (136-145); Total Protein 6.9 gm/dl (6.0-8.3)
[2025-08-30 02:01] LABS: INR 1.1 (0.9-1.1); Prothrombin Time 11.4 Seconds (9.0-12.0)
--- NOTE | 2025-08-30 02:02 | XRay Report ---
EXAM: XR chest 1V portable CLINICAL HISTORY: sob TECHNIQUE: X-ray image of the chest is obtained in AP projection. 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 FINDINGS: Pulmonary Parenchyma: Stable fine basal subpleural reticulations, likely reflecting age-related interstitial changes There is no evidence of consolidation, collapse, or focal opacities. No pulmonary nodules are identified. There is no evidence of pleural effusion or pleural thickening. Heart and Mediastinum: The heart size and shape are normal. Calcific aortic arch panda. There is no mediastinal widening or masses. No hilar or mediastinal lymphadenopathy is present. Bony Thorax: The loop recorder device is still in place. The bony thorax appears intact without fractures or deformities. Soft Tissues: The soft tissues overlying the chest wall are unremarkable. IMPRESSION: 1. No acute cardiopulmonary abnormalities are identified. 2. Stable fine basal subpleural reticulations, likely reflecting age-related interstitial changes. 3. No interval time changes. Electronically signed by Adin Rivera 08-30-2025 02:01 AM
[2025-08-30 02:18] LABS: Chlamydia pneumoniae PCR Not Detected (NotDetected); Coronavirus 229E PCR Not Detected (NotDetected); Coronavirus CoV-2 (COVID19)PCR Not Detected (NotDetected); Coronavirus HKU1 PCR Not Detected (NotDetected); Coronavirus NL63 PCR Not Detected (NotDetected); Coronavirus OC43PCR Not Detected (NotDetected); Human Metapneumovirus PCR Not Detected (NotDetected); Parainfluenza Virus 1 PCR Not Detected (NotDetected); Parainfluenza Virus 2 PCR Not Detected (NotDetected); Parainfluenza Virus 3 PCR Not Detected (NotDetected); Parainfluenza Virus 4 PCR Not Detected (NotDetected); Respiratory Syncytial VirusPCR Not Detected (NotDetected); Rhinovirus/Enterovirus PCR Not Detected (NotDetected)
--- NOTE | 2025-08-30 02:22 | History & Physical Report ---
Date of Service August 30, 2025 Assessment & Plan (1) Acute on chronic respiratory failure with hypoxia and hypercapnia: (2) COPD exacerbation: Plan The patient is an 85-year-old male with a past medical history including acute on chronic respiratory failure with hypoxia, COPD with exacerbation, lumbar facet joint syndrome, BPH with LUTS, carotid artery stenosis, asthma-COPD overlap syndrome, hypersomnia, and chronic bronchitis. His most recent hospitalization was from 07/12-07/14/2025 with acute on chronic respiratory failure, and upon discharge reports he had gotten back to his baseline breathing state. 2 days ago he developed the beginnings of shortness of breath, and s ignificantly progressed yesterday. Earlier this evening and overnight, he became significantly more short of breath, and patient's family felt he needed to come to the emergency department for assessment. Workup in the emergency department revealed acute on chronic respiratory failure with hypoxia and hypercapnia, patient was given Xopenex nebulizer, Solu-Medrol 125 mg IV, and guaifenesin 60 mg p.o. he was placed on BiPAP, and then referred for evaluation of admission to the [facility]. Acute on chronic respiratory failure with hypoxia and hypercapnia/COPD exacerbation- Patient was admitted to the PCU Continue BiPAP, taper to oxy mask and nasal cannula, with goal pulse ox of 92%. Received Xopenex nebulizer, Solu-Medrol 125mg IV, and guaifenesin 60 mg p.o. from the ED. Solu-Medrol 40 mg IV every 8 hours Xopenex nebulizer every 4 hours as needed Azithromycin 500 mg IV daily Guaifenesin extended release 600 mg p.o. every 12 hours Continue usual inhalers BPH with LUTS- Continue alfuzosin will change control specialist to tamsulosin, and finasteride Atrial fibrillation/aortic stenosis/hypertension/carotid artery stenosis- Continue aspirin, carvedilol, clopidogrel and furosemide GERD- Continue famotidine and pantoprazole History of Present Illness Primary Care Provider: Hollie Proctor MD The patient is an 85-year-old male with a past medical history including acute on chronic respiratory failure with hypoxia, COPD with exacerbation, lumbar facet joint syndrome, BPH with LUTS, carotid artery stenosis, asthma-COPD overlap syndrome, hypersomnia, and chronic bronchitis. His most recent hospitalization was from 07/12-07/14/2025 with acute on chronic respiratory failure, and upon discharge reports he had gotten back to his baseline breathing state. 2 days ago he developed the beginnings of shortness of breath, and significantly progressed yesterday. Earlier this evening and overnight, he became significantly more short of breath, and patient's family felt he needed to come to the emergency department for assessment. Workup in the emergency department revealed acute on chronic respiratory failure with hypoxia and hypercapnia, patient was given Xopenex nebulizer, Solu-Medrol 125 mg IV, and guaifenesin 60 mg p.o. he was placed on BiPAP, and then referred for evaluation of admission to the [facility]. Allergies Allergy/AdvReac Type Severity Reaction Status Date / Time No Known Allergies Allergy Verified 07/19/25 11:07 Home Medications Medication Instructions Recorded Confirmed Type nebulizers #1 ea 09/07/20 08/30/25 Rx famotidine 20 mg tablet (Pepcid) 20 mg PO HS 06/03/21 08/30/25 History magnesium oxide 400 mg PO QAM #0 caps 01/16/22 08/30/25 History qujpwcjksfwi-pyqqrsnt-mfdyky 1 tab PO DAILY 04/24/22 08/30/25 History tablet (Multivitamin 50 Plus tablet) clopidogrel 75 mg tablet 75 mg PO QAM 30 days #30 tabs 08/10/22 08/30/25 Rx aspirin 81 mg tablet,delayed 81 mg PO DAILY 02/07/23 08/30/25 History release cholecalciferol (vitamin D3) 125 125 mcg PO DAILY #30 tabs 06/19/23 08/30/25 Rx mcg (5,000 unit) tablet (Vitamin D3) telmisartan 40 mg tablet (Micardis) 40 mg PO QAM #90 tabs 06/30/24 08/30/25 Rx finasteride 5 mg tablet 5 mg PO DAILY #90 tabs 10/01/24 08/30/25 Rx alfuzosin 10 mg tablet,extended 10 mg PO DAILY #90 tabs 11/24/24 08/30/25 Rx release 24 hr sildenafil 100 mg tablet 100 mg PO DAILY PRN sexual 12/31/24 08/30/25 Rx activity #20 tabs simvastatin 20 mg tablet 20 mg PO DAILY 90 days #90 tabs 03/09/25 08/30/25 Rx budesonide 160 mcg-glycopyr 9 2 inh inhalation BID COPD #10.7 03/11/25 08/30/25 Rx mcg-formot 4.8 mcg/actuation HFA grams inhaler (Breztri Aerosphere) pantoprazole 40 mg tablet,delayed 40 mg PO QAM 90 days #90 tabs 03/18/25 08/30/25 Rx release montelukast 10 mg tablet 10 mg PO HS #90 tabs 03/22/25 08/30/25 Rx (Singulair) carvedilol 6.25 mg tablet 6.25 mg PO BID #180 tabs 05/27/25 08/30/25 Rx duloxetine 60 mg capsule,delayed 60 mg PO DAILY #90 caps 06/21/25 08/30/25 Rx release potassium citrate 99 mg capsule 99 mg PO DAILY 07/07/25 08/30/25 History vit C 250 mg-vit E 90 mg-zinc 40 1 tab PO BID 07/07/25 08/30/25 History mg-copper 1 ud-hoviic-uaevfz capsule (PreserVision AREDS-2) furosemide 20 mg tablet 20 mg PO DAILY #30 tabs 07/14/25 08/30/25 Rx Portable Oxygen #1 ea 07/15/25 08/30/25 Rx albuterol sulfate 90 mcg/actuation 2 inh inhalation Q4H PRN shortness 07/15/25 08/30/25 Rx aerosol inhaler (Ventolin HFA) of breath #8.5 grams levalbuterol HCl 1.25 mg/3 mL 1.25 mg (3 mL) inhalation Q4H PRN 07/15/25 08/30/25 Rx solution for nebulization Shortness Of Breath Or Wheezing #90 mL mepolizumab 100 mg/mL subcutaneous 100 mg subcut Q4WK #1 mL 07/28/25 08/30/25 Rx auto-injector (Nucala) celecoxib 50 mg capsule 50 mg PO BID PRN Pain 08/30/25 08/30/25 History peg 400-propylene glycol (PF) 0.4 1 drp OPB BID 08/30/25 08/30/25 History %-0.3 % eye drops in a dropperette Past Med/Surg History Problem List (Updated 08/04/25 @ 05:34 by Saulo A. Bialas, DO) Elevated brain natriuretic peptide (BNP) level Chronic respiratory failure Aortic stenosis COPD exacerbation Acute kidney injury Acute on chronic respiratory failure with hypoxia and hypercapnia Acute and chronic respiratory failure with hypercapnia (Acute) Acute and chronic respiratory failure with hypoxia LBBB (left bundle branch block) Short of breath on exertion Skin tear of left upper extremity Fatigue Lumbar radiculopathy Lumbar facet joint syndrome Erectile dysfunction Benign localized prostatic hyperplasia with lower urinary tract symptoms (LUTS) Peripheral arteriosclerosis Osteoarthritis Nocturnal hypoxia o2 2l at hs Hypertension Atrial fibrillation dx 7 yrs ago Bilateral shoulder pain 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) Carotid artery stenosis Neutrophilic leukocytosis Anemia COPD (chronic obstructive pulmonary disease) (Chronic) Impaired fasting glucose (Chronic) Asthma-chronic obstructive pulmonary disease overlap syndrome Aortic aneurysm Status post placement of implantable loop recorder Ground glass opacity present on imaging of lung Insomnia Hypersomnia Ex-smoker Chronic bronchitis Aneurysm of infrarenal abdominal aorta 04/18/2022 - 7cm x 6.7 cm Medical History Vitamin D deficiency COVID-19 Weakness Ischemia of toe Implantable loop recorder present Benign localized prostatic hyperplasia with lower urinary tract symptoms (LUTS) History of tobacco use Insomnia Hearing loss Erectile dysfunction Syncopal episodes COPD (chronic obstructive pulmonary disease) CKD (chronic kidney disease) Surgical History S/P endovascular aneurysm repair S/P AAA repair using bifurcation graft Hx of colonoscopy Hx of appendectomy History of left hip replacement History of right hip replacement Family History Other Coronary heart disease Diabetes Social History Smoking Status: Never smoker Tobacco Type: Cigarettes Age Started Using Tobacco: 18; Age Quit Using Tobacco: 75; packs per day: 1; Cigarettes Per Day: 1pack; Second Hand Exposure: No; Do You Dip or Chew Tobacco: No; Hx Alcohol Use: No Hx Substance Use: No Preferred Language: American Communication Ability: Effective Visual Impairment: No Limitations Addictions Recovery Specialist Required: No Beliefs That Will Affect Care: None marital status: Current Living Situation: Spouse current occupational status: retired How many Children do You have: 1 other: [employer] from [id number]. Discharge rank E4. No combat injury Feels Safe at Home: Yes Childhood Exposure to Second-Hand Smoke: No Diet: regular caffeine: Yes Dental Care, Regularly: No Physical Activity Frequency: Daily Seatbelt Use: always Sunscreen Use: Yes Assistive Devices: Cane and Nebulizer Review of Systems Review of Systems: The patient denies chest pain, palpitations, lower extremity swelling, sore throat, fevers, chills, sweats, nausea, vomiting, diarrhea , constipation, abdominal pain, pelvic pain, blood in urine or stool, dysuria, urinary frequency or urgency, lightheadedness, dizziness, headache, memory loss, loss of consciousness, rash, abnormal bruising or bleeding, imbalance, focal weakness, numbness or tingling in arms or legs, generalized arthralgias or myalgias, back or neck pain, or night sweats. The review of systems is otherwise negative other than for that already noted above, and at least 10 systems have been reviewed. Physical Exam Physical Exam: The patient is awake, alert and oriented 3, normocephalic and atraumatic, wearing BiPAP, sitting upright in bed and in no acute distress. HEENT--PERRL, EOMI, mucous membranes and oropharynx dry. Neck--supple. No JVD. No bruits. Thyroid normal, trachea midline, no adenopathy. Heart--normal S1 and S2. No murmurs, rubs or gallops. Lungs--decreased breath sounds throughout. Mild respiratory distress, no accessory muscle use after initial treatment response. Abdomen--normal bowel sounds and soft. Nontender. Nondistended, no hernias or masses, no organomegaly. Extremities--No edema. There are good distal pulses b/l. Dermatologic--normal skin turgor, normal color, no abnormal lymph nodes, no rash. Neurologic--cranial nerves II through XII grossly intact. Rheumatologic--normal range of motion. Psychiatric--normal affect. Results & Data Results & Data Vital Signs (Past 12 Hours) Vital Signs Temp Pulse Pulse Resp BP BP Pulse Ox 08/30/25 02:09 84 17 123/78 92 08/30/25 01:32 90 27 H 128/75 94 08/30/25 01:27 90 94 08/30/25 01:17 94 H 31 H 100 08/30/25 01:17 94 H 31 H 100 08/30/25 01:11 36.4 C 92 H 30 H 163/104 H 98 08/30/25 00:59 96 H 08/30/25 00:57 94 H 30 H 182/114 H 100 O2 Del Method FiO2 08/30/25 02:09 BiPAP 08/30/25 01:32 BiPAP 08/30/25 01:27 BiPAP 08/30/25 01:17 28 08/30/25 01:17 BiPAP 28 08/30/25 01:11 BiPAP 08/30/25 00:59 08/30/25 00:57 BiPAP Laboratory Results Laboratory Results WBC 12.85 K/ul (4.8-10.8) H 08/30/25 01:08 RBC 4.07 M/uL (4.70-6.10) L 08/30/25 01:08 Hgb 11.8 g/dL (14.0-18.0) L 08/30/25 01:08 POC Hgb 11.9 g/dl (14.0-18.0) L 08/30/25 01:16 Hct 37.6 % (42.0-52.0) L 08/30/25 01:08 POC Hct 35 % (42-52) L 08/30/25 01:16 MCV 92.4 fL (80.0-100.0) 08/30/25 01:08 MCH 29.0 pg (25.0-34.0) 08/30/25 01:08 MCHC 31.4 g/dL (32.0-36.0) L 08/30/25 01:08 RDW Std Deviation 45.7 fL (36.4-46.3) 08/30/25 01:08 RDW Coeff of Alan 13.6 % (11.5-14.5) 08/30/25 01:08 Plt Count 289 K/uL (130-400) 08/30/25 01:08 MPV 9.1 fL (9.4-12.4) L 08/30/25 01:08 Immature Gran % (Auto) 0.3 % 08/30/25 01:08 Neut % (Auto) 71.7 % 08/30/25 01:08 Lymph % (Auto) 14.2 % 08/30/25 01:08 [place] % (Auto) 5.5 % 08/30/25 01:08 Eos % (Auto) 7.5 % 08/30/25 01:08 Baso % (Auto) 0.8 % 08/30/25 01:08 Neut # (Auto) 9.20 K/uL (1.40-6.50) H 08/30/25 01:08 Lymph # (Auto) 1.83 K/uL (1.20-3.40) 08/30/25 01:08 [place] # (Auto) 0.71 K/uL (0.11-0.59) H 08/30/25 01:08 Eos # (Auto) 0.97 K/uL (0.00-0.50) H 08/30/25 01:08 Baso # (Auto) 0.10 K/uL (0.00-0.20) 08/30/25 01:08 Immature Gran # (Auto) 0.04 K/uL (0.01-0.20) 08/30/25 01:08 PT 11.4 Seconds (9.0-12.0) 08/30/25 01:08 INR 1.1 (0.9-1.1) 08/30/25 01:08 VBG pH 7.15 (7.36-7.41) L 08/30/25 01:08 VBG pCO2 89 mmHg (38-50) H 08/30/25 01:08 VBG pO2 32 mmHg 08/30/25 01:08 VBG HCO3 31 mmol/L 08/30/25 01:08 VBG O2 Saturation < 60.0 % 08/30/25 01:08 VBG Base Excess -0.5 mEq/L 08/30/25 01:08 POC Sodium 141 mmol/L (135-144) 08/30/25 01:16 Sodium 140 mmol/L (136-145) 08/30/25 01:08 POC Potassium 4.5 mmol/L (3.3-5.0) 08/30/25 01:16 Potassium 4.7 mmol/L (3.5-5.1) 08/30/25 01:08 POC Chloride 103 mmol/L (101-112) 08/30/25 01:16 Chloride 104 mmol/L (98-107) 08/30/25 01:08 Carbon Dioxide 30 mmol/L (21-32) 08/30/25 01:08 POC Total CO2 29 mmol/L (24-31) 08/30/25 01:16 Anion Gap 6 (3-11) 08/30/25 01:08 POC Anion Gap 15.0 mmol/L (16-25) L 08/30/25 01:16 POC BUN 31 mg/dl (7-18) H 08/30/25 01:16 BUN 28 mg/dl (6-23) H 08/30/25 01:08 Creatinine 1.25 mg/dl (0.6-1.4) 08/30/25 01:08 POC Creatinine 1.4 mg/dl (0.6-1.3) H 08/30/25 01:16 Est Cr Clr Drug Dosing 39.8 ml/min 08/30/25 01:08 eGFR 55.73 08/30/25 01:08 BUN/Creatinine Ratio 22.4 (10-20) H 08/30/25 01:08 Glucose 195 mg/dl (70-99(Fasting)) H 08/30/25 01:08 POC Glucose (other) 179 mg/dl (70-99) H 08/30/25 01:16 Calcium 8.9 mg/dl (8.6-10.3) 08/30/25 01:08 POC Ioniz Calcium Gato 1.09 mmol/l (1.12-1.32) L 08/30/25 01:16 Magnesium 2.1 mg/dl (1.7-2.4) 08/30/25 01:08 Total Bilirubin 0.3 mg/dl (0.2-1.0) 08/30/25 01:08 AST 18 U/L (13-39) 08/30/25 01:08 ALT 10 U/L (7-52) 08/30/25 01:08 Alkaline Phosphatase 103 U/L (34-104) 08/30/25 01:08 Troponin I High Sens 10.9 pg/ml (0-20) 08/30/25 01:08 Total Protein 6.9 gm/dl (6.0-8.3) 08/30/25 01:08 Albumin 3.9 gm/dl (3.4-5.0) 08/30/25 01:08 Globulin 3.0 gm/dl (2.5-4.0) 08/30/25 01:08 Albumin/Globulin Ratio 1.3 (0.9-2) 08/30/25 01:08 Lipase 29 U/L (11-82) 08/30/25 01:08 Procalcitonin < 0.02 ng/ml (0-0.5) 08/30/25 01:08 Adenovirus (PCR) Not Detected (NotDetected) 08/30/25 01:15 B. pertussis DNA (PCR) Not Detected (NotDetected) 08/30/25 01:15 B.parapertussis DNA PCR Not Detected (NotDetected) 08/30/25 01:15 C. pneumoniae DNA (PCR) Not Detected (NotDetected) 08/30/25 01:15 Coronavirus OC43 (PCR) Not Detected (NotDetected) 08/30/25 01:15 Coronavirus HKU1 (PCR) Not Detected (NotDetected) 08/30/25 01:15 Coronavirus 229E (PCR) Not Detected (NotDetected) 08/30/25 01:15 SARS-CoV-2 (PCR) Not Detected (NotDetected) 08/30/25 01:15 Coronavirus NL63 (PCR) Not Detected (NotDetected) 08/30/25 01:15 Human Metapneumovir PCR Not Detected (NotDetected) 08/30/25 01:15 Influenza Type A (PCR) Not Detected (NotDetected) 08/30/25 01:15 Influenza Type B (PCR) Not Detected (NotDetected) 08/30/25 01:15 M. pneumoniae (PCR) Not Detected (NotDetected) 08/30/25 01:15 Parainfluenza 1 (PCR) Not Detected (NotDetected) 08/30/25 01:15 Parainfluenza 2 (PCR) Not Detected (NotDetected) 08/30/25 01:15 Parainfluenza 3 (PCR) Not Detected (NotDetected) 08/30/25 01:15 Parainfluenza 4 (PCR) Not Detected (NotDetected) 08/30/25 01:15 RSV (PCR) Not Detected (NotDetected) 08/30/25 01:15 Entero/Rhino (PCR) Not Detected (NotDetected) 08/30/25 01:15 Impressions Chest X-Ray 08/30/25 01:06 EXAM: XR chest 1V portable CLINICAL HISTORY: sob TECHNIQUE: X-ray image of the chest is obtained in AP projection. COMPARISON: 08/04/2025 03:05:00 MANAGER AUDIO CR. FINDINGS: Pulmonary Parenchyma: Stable fine basal subpleural reticulations, likely reflecting age-related interstitial changes There is no evidence of consolidation, collapse, or focal opacities. No pulmonary nodules are identified. There is no evidence of pleural effusion or pleural thickening. Heart and Mediastinum: The heart size and shape are normal. Calcific aortic arch panda. There is no mediastinal widening or masses. No hilar or mediastinal lymphadenopathy is present. Bony Thorax: The loop recorder device is still in place. The bony thorax appears intact without fractures or deformities. Soft Tissues: The soft tissues overlying the chest wall are unremarkable. IMPRESSION: 1. No acute cardiopulmonary abnormalities are identified. 2. Stable fine basal subpleural reticulations, likely reflecting age-related interstitial changes. 3. No interval time changes. Electronically signed by Adin Rivera 08-30-2025 02:01 AM Code Status & VTE Plan Code Status DNR/DNI VTE Prophylaxis Plan VTE Prophylaxis will be ordered: Yes PG Care Time/CCT Total # of Minutes Spent Total Time Spent with Patient: Total time spent is greater than 50% in coordination of care (as documented) at patient's floor/unit and/or counseling patient: Coding Level of Care Code 79337 INT INP/OBS CARE 3/75MIN Diagnoses Acute on chronic respiratory failure with hypoxia and hypercapnia J96.21; J96.22 COPD exacerbation J44.1
[2025-08-30] MEDS ORDERED: ACETAMINOPHEN 325 MG TAB PO PRN (04:07)
[2025-08-30] MEDS ORDERED: GLUCOSE 10 TAB/TUBE PO PRN (04:07)
[2025-08-30] MEDS ORDERED: CARBOHYDRATES FOR HYPOGLYCEMIA PO PRN (04:07)
[2025-08-30] MEDS ORDERED: GLUCAGON FOR INJ 1 MG VIAL SQ PRN (04:07)
[2025-08-30] MEDS ORDERED: DEXTROSE 50% 50 ML SYRINGE IV PRN (04:07)
[2025-08-30] MEDS ORDERED: NON-FORMULARY MEDICATION (Nebulizers misc) SCH (04:07)
[2025-08-30] MEDS ORDERED: GLUCOSE 40% GEL 15 GM TUBE PO PRN (04:07)
[2025-08-30] MEDS ORDERED: ONDANSETRON INJ 2 MG/ML 2 ML VIAL IV PRN (04:07)
[2025-08-30 04:28] LABS: Appearance Urine Clear (Clear); Bacteria Urine Automated None Seen (None Seen); Epithelial Cell Urine Auto 0-2 /hpf (0-2); Glucose Urine UA Negative (Negative); RBC Urine Automated 0-2 /hpf (0-2); WBC Urine Automated 0-5 /hpf (0-5)
[2025-08-30] MEDS: AZITHROMYCIN 500 MG/255 ML BAG IV SCH (04:50)
[2025-08-30] MEDS: For Breztri~UMECLIDINIUM/VILANTEROL 62.5/25MCG 7 PUFFS/INHALER INH SCH (07:43)
[2025-08-30] MEDS: guaiFENesin 600 MG TABCR PO STA (07:44)
[2025-08-30] MEDS: For Breztri~FLUTICASONE FUROATE 200MCG 14 PUFFS/INHALER INH SCH (07:45)
[2025-08-30] MEDS: ASPIRIN 81 MG ECTAB PO SCH (07:48)
[2025-08-30] MEDS: CHOLECALCIFEROL 125 MCG (5,000 UNITS) TAB PO SCH (07:48)
[2025-08-30] MEDS: CLOPIDOGREL BISULFATE 75 MG TAB PO SCH (07:48)
[2025-08-30] MEDS: SIMVASTATIN 20 MG TAB PO SCH (07:49)
[2025-08-30] MEDS: CEROVITE ADV FORMULA TAB PO SCH (07:49)
[2025-08-30] MEDS: FINASTERIDE 5 MG TAB PO SCH (07:49)
[2025-08-30] MEDS: TAMSULOSIN HCL 0.4 MG CAP PO SCH (07:49)
[2025-08-30] MEDS: MAGNESIUM OXIDE 400 MG TAB PO SCH (07:49)
[2025-08-30] MEDS: LOSARTAN POTASSIUM 50 MG TAB PO SCH (07:49)
[2025-08-30] MEDS: ARTIFICIAL TEARS OPB SCH (07:56)
[2025-08-30] MEDS: INSULIN ASPART PER UNIT CHARGE SC SCH (08:33)
[2025-08-30] MEDS ORDERED: NON-FORMULARY MEDICATION (Budesonide-Glycopyr-Formoterol [Breztri Aerosphere] 160-9-4.8 mc INH SCH (09:00)
[2025-08-30] MEDS ORDERED: NON-FORMULARY MEDICATION (Vit C,E-Zn-Coppr-Lutein-Zeaxan [Preservision Areds-2] 250-90-40- PO SCH (09:00)
[2025-08-30] MEDS ORDERED: NON-FORMULARY MEDICATION (Potassium Citrate 99 mg Capsule) PO SCH (09:00)
[2025-08-30 09:04] LABS: iSTAT Art Bld Gas Base Excess 3.0 mmol/L (-9-1.8)
[2025-08-30] MEDS: ALBUT/IPRATROP 3MG/0.5MG NEB 3 ML VIAL ONE (09:54)
--- NOTE | 2025-08-30 10:00 | Electrocardiogram Report ---
Test Reason : Blood Pressure : */* mmHG Vent. Rate : 90 BPM Atrial Rate : 90 BPM P-R Int : 220 ms QRS Dur : 130 ms QT Int : 420 ms P-R-T Axes : 69 -24 117 degrees QTcB Int : 513 ms Sinus rhythm with 1st degree A-V block with Premature ventricular complexes or Fusion complexes Non-specific intra-ventricular conduction block Minimal voltage criteria for LVH, may be normal variant Cannot rule out Anteroseptal infarct (cited on or before 15-Apr-2025) Abnormal ECG When compared with ECG of 04-Aug-2025 03:31, Fusion complexes are now Present Premature ventricular complexes are now Present ST more depressed Inferior leads ST no longer depressed in Lateral leads Confirmed by Willam Pan ([id number]) on 08/30/2025 10:00:01 AM Referred By: REFERRED SELF Confirmed By: Willam Pan
[2025-08-30] MEDS: POLYETHYLENE (MIRALAX) 17 GM PACK PO SCH (16:39)
[2025-08-30] MEDS: LEVALBUTEROL 1.25 MG/3 ML NEB INH PRN (16:45)
--- NOTE | 2025-08-30 17:54 | History & Physical Bridge Note ---
Date of Service August 30, 2025 History & Physical Bridge Note I have examined the patient, reviewed the History & Physical and in the interval since the performance of the History & Physical I have noted the following changes of clinical significance: Patient weaned back to 2 L nasal cannula and is ambulating to the bathroom and back. He feels constipated and keeps trying to strain but can't move his bowels. He feels an urge to urinate but only 100mL in bldder on bladder scan. He is agreeable to Trilogy or BiPAP for pamela euse if can get approved. Vitals reviewed NAD, AAOx3 Lungs diminished throughout, faint exp wheeze left upper lung field RRR no mgr, no edema Abd +BS soft NT ND ABG, VBG and troponin reviewed 85 yo male here with acute on chronic resp failure with hypoxia and hypercarbia, acute COPD exacerbation. Was requiring BiPAP for resp acidosis, now weaned off, improved ABG -check overnight POx, AM ABG to see if qualifies for BiPAP vs Trilogy Consult Pulm Continue steroids add Miralax and senna for constipation which is also likely causing urinary urgency (as UA not indicative of infection)
[2025-08-30] MEDS: SENNA 8.6 MG TAB PO ONE (19:09)
[2025-08-30] MEDS: FAMOTIDINE 20 MG TAB PO SCH (20:03)
[2025-08-30] MEDS: MELATONIN 3 MG TAB PO SCH (20:03)
[2025-08-30] MEDS: MONTELUKAST SODIUM 10 MG TABLET PO SCH (20:03)
[2025-08-31 05:38] LABS: HCO3 ABG 27 mmol/L (19-24); Oxygen Saturation ABG 98.5 % (90-95); PCO2 ABG 37 mmHg (35-46); PO2 ABG 86 mmHg (80-95)
[2025-08-31 05:41] LABS: Allen Test Pos (Pos)
[2025-08-31 06:19] LABS: Hematocrit (blood only) 32.0 % (42.0-52.0); Hemoglobin 10.3 g/dL (14.0-18.0); Immature Granulocytes # (auto) 0.13 K/uL (0.01-0.20); Immature Granulocytes % (auto) 0.7 %; Mean Corpuscular Hemoglobin 28.6 pg (25.0-34.0); Mean Corpuscular Volume 88.9 fL (80.0-100.0); Platelet Count 250 K/uL (130-400); RDW Standard Deviation 45.0 fL (36.4-46.3); Red Blood Count 3.60 M/uL (4.70-6.10); White Blood Count 18.61 K/ul (4.8-10.8)
[2025-08-31 06:45] LABS: Alanine Aminotransferase 9.0 U/L (7-52); Albumin Globulin Ratio 1.5 (0.9-2); Albumin Level 3.6 gm/dl (3.4-5.0); Alkaline Phosphatase 85.0 U/L (34-104); Anion Gap 7.0 (3-11); Bilirubin,Total 0.4 mg/dl (0.2-1.0); Blood Urea Nitrogen 26.0 mg/dl (6-23); Calcium 8.7 mg/dl (8.6-10.3); Carbon Dioxide 29.0 mmol/L (21-32); Chloride 99.0 mmol/L (98-107); Creatinine Clr Calc Pharmacy 43.1 ml/min; Globulin 2.4 gm/dl (2.5-4.0); Glucose 198.0 mg/dl (70-99(Fasting)); Magnesium 1.9 mg/dl (1.7-2.4); Potassium 4.0 mmol/L (3.5-5.1); Sodium 135.0 mmol/L (136-145); Total Protein 6.0 gm/dl (6.0-8.3)
--- NOTE | 2025-08-31 11:55 | Pulmonary Consultation ---
Date of Consultation August 31, 2025 Assessment & Plan (1) COPD exacerbation: (2) Asthma-chronic obstructive pulmonary disease overlap syndrome: (3) Peripheral eosinophilia: (4) Nocturnal hypoxia: Plan Patient is a 85-year-old male with a past medical history significant for COPD- asthma, emphysema, chronic bronchitis, previous tobacco use ([id number]-guyh history, quit 2014), nocturnal hypoxemia with 2 L oxygen nightly, peripheral eosinophilia, nocturnal hypoxia, GERD, systolic CHF, atrial fibrillation and hypertension. Patient has had recurrent hospital admissions for COPD exacerbation, again presented to the hospital on 08/30/2025 with COPD exacerbation. Found to be significantly hypercapnic and improved rapidly with bronchodilators, steroids and BiPAP. Pulmonary has been consulted for recurrent COPD exacerbation. Problem list: COPD exacerbation Asthma/COPD overlap syndrome Peripheral eosinophilia Acute hypercapnic respiratory failure, resolved Nocturnal hypoxemia Recommendations/plan: Continue bronchodilators. Upon discharge resume home Breztri and as needed a lbuterol. Can continue azithromycin. Continue home montelukast. Continue steroids, recommend decreasing to prednisone 40 mg daily. Would continue for 5 days upon discharge. Upon discharge the patient is to start his Nucala injections. 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 Would recommend outpatient sleep study and outpatient ABG. Should follow-up with his cross roller. Thank for this consult. I will sign off.. Please call with any questions. History of Present Illness Reason for Consultation: COPD exacerbation Requesting Physician: Tiffany Duran MD Attending Physician: Tiffany Duran MD History of Present Illness Patient is a 85-year-old male with a past medical history significant for COPD- asthma, emphysema, chronic bronchitis, previous tobacco use (44-tkwo-mnht history, quit 2014), nocturnal hypoxemia with 2 L oxygen nightly, peripheral eosinophilia, nocturnal hypoxia, GERD, systolic CHF, atrial fibrillation and hypertension. The patient has had recurrent hospital admissions for COPD exacerbation in the past few months. The patient has responded each time to bronchodilators and prednisone. The patient again presented to the hospital on 08/30/2025 with shortness of breath. VBG on arrival showed a pH of 7.15 with a venous pCO2 of 89. The patient was placed on BiPAP and 1 hour and ABG showed a pCO2 of 49 and a pH of 7.37. The patient was treated with bronchodilators and steroids. Chest x-ray was obtained which showed no acute process. Viral PCR was negative. He was admitted to the hospital [place] and pulmonary was consulted for further recommendations. Today when I examined the patient he is resting comfortably on room air. He says that his breathing has improved significantly. There is some mild wheezing present but he is moving air well bilaterally. The patient is compliant with his home Breztri inhaler that he is twice daily and he also uses albuterol as needed. He denies any new fevers, chills, night sweats or weight loss. He follows with Dr. Interiano and was recently seen on 07/15/2025. The plan is to initiate Nucala injections however these have not been initiated yet as the patient has not received the medication. Allergies Allergy/AdvReac Type Severity Reaction Status Date / Time No Known Allergies Allergy Verified 07/19/25 11:07 Home Medications Medication Instructions Recorded Confirmed Type nebulizers #1 ea 09/07/20 08/30/25 Rx famotidine 20 mg tablet (Pepcid) 20 mg PO HS 06/03/21 08/30/25 History magnesium oxide 400 mg PO QAM #0 caps 01/16/22 08/30/25 History utqnewtyfcwp-orqudbvk-twfdne 1 tab PO DAILY 04/24/22 08/30/25 History tablet (Multivitamin 50 Plus tablet) clopidogrel 75 mg tablet 75 mg PO QAM 30 days #30 tabs 08/10/22 08/30/25 Rx aspirin 81 mg tablet,delayed 81 mg PO DAILY 02/07/23 08/30/25 History release cholecalciferol (vitamin D3) 125 125 mcg PO DAILY #30 tabs 06/19/23 08/30/25 Rx mcg (5,000 unit) tablet (Vitamin D3) telmisartan 40 mg tablet (Micardis) 40 mg PO QAM #90 tabs 06/30/24 08/30/25 Rx finasteride 5 mg tablet 5 mg PO DAILY #90 tabs 10/01/24 08/30/25 Rx alfuzosin 10 mg tablet,extended 10 mg PO DAILY #90 tabs 11/24/24 08/30/25 Rx release 24 hr sildenafil 100 mg tablet 100 mg PO DAILY PRN sexual 12/31/24 08/30/25 Rx activity #20 tabs simvastatin 20 mg tablet 20 mg PO DAILY 90 days #90 tabs 03/09/25 08/30/25 Rx budesonide 160 mcg-glycopyr 9 2 inh inhalation BID COPD #10.7 03/11/25 08/30/25 Rx mcg-formot 4.8 mcg/actuation HFA grams inhaler (Breztri Aerosphere) pantoprazole 40 mg tablet,delayed 40 mg PO QAM 90 days #90 tabs 03/18/25 Rx release montelukast 10 mg tablet 10 mg PO HS #90 tabs 03/22/25 08/30/25 Rx (Singulair) carvedilol 6.25 mg tablet 6.25 mg PO BID #180 tabs 05/27/25 08/30/25 Rx duloxetine 60 mg capsule,delayed 60 mg PO DAILY #90 caps 06/21/25 08/30/25 Rx release potassium citrate 99 mg capsule 99 mg PO DAILY 07/07/25 08/30/25 History vit C 250 mg-vit E 90 mg-zinc 40 1 tab PO BID 07/07/25 08/30/25 History mg-copper 1 mv-jmoifj-buyeml capsule (PreserVision AREDS-2) furosemide 20 mg tablet 20 mg PO DAILY #30 tabs 07/14/25 08/30/25 Rx Portable Oxygen #1 ea 07/15/25 08/30/25 Rx albuterol sulfate 90 mcg/actuation 2 inh inhalation Q4H PRN shortness 07/15/25 08/30/25 Rx aerosol inhaler (Ventolin HFA) of breath #8.5 grams levalbuterol HCl 1.25 mg/3 mL 1.25 mg (3 mL) inhalation Q4H PRN 07/15/25 08/30/25 Rx solution for nebulization Shortness Of Breath Or Wheezing #90 mL mepolizumab 100 mg/mL subcutaneous 100 mg subcut Q4WK #1 mL 07/28/25 08/30/25 Rx auto-injector (Nucala) celecoxib 50 mg capsule 50 mg PO BID PRN Pain 08/30/25 08/30/25 History melatonin 10 mg tablet 10 mg PO HS 08/30/25 08/30/25 History peg 400-propylene glycol (PF) 0.4 1 drp OPB BID 08/30/25 08/30/25 History %-0.3 % eye drops in a dropperette Patient History Medical History Nonischemic cardiomyopathy Lumbar spinal stenosis Severe at L4-5 GERD (gastroesophageal reflux disease) BPH (benign prostatic hyperplasia) Vitamin D deficiency COVID-19 Weakness Ischemia of toe Implantable loop recorder present dr jacobson - 3 yrs ago Benign localized prostatic hyperplasia with lower urinary tract symptoms (LUTS) History of tobacco use Insomnia Hearing loss Erectile dysfunction Syncopal episodes summer 2020 COPD (chronic obstructive pulmonary disease) CKD (chronic kidney disease) Surgical History S/P endovascular aneurysm repair S/P AAA repair using bifurcation graft Hx of colonoscopy Hx of appendectomy History of left hip replacement History of right hip replacement Family History Other Coronary heart disease Diabetes Social History Smoking Status: Former smoker Tobacco Type: Cigarettes Age Started Using Tobacco: 18; Age Quit Using Tobacco: 75; packs per day: 1; Cigarettes Per Day: 1pack; Second Hand Exposure: No; Do You Dip or Chew Tobacco: No; Hx Alcohol Use: No Hx Substance Use: No Preferred Language: Somali Communication Ability: Effective Visual Impairment: No Limitations Cryptographic Vulnerability Analyst Required: No Beliefs That Will Affect Care: None marital status: Current Living Situation: Spouse current occupational status: retired How many Children do You have: 1 other: [employer] from [id number]. Discharge rank E4. No combat injury Feels Safe at Home: Yes Childhood Exposure to Second-Hand Smoke: No Diet: regular caffeine: Yes Dental Care, Regularly: No Physical Activity Frequency: Daily Seatbelt Use: always Sunscreen Use: Yes Assistive Devices: Cane, Nebulizer, Oxygen - at Night and Walker Review of Systems Review of Systems: A 12 point review of systems was obtained in detail. Negative except as noted in HPI. Physical Exam Physical Exam: Physical examination: General: Well-appearing, well-nourished and not in acute distress. HEENT: Normocephalic, atraumatic. Extraocular movements intact. Sclera are nonicteric. No JVD appreciated. Skin: Warm and dry. No rashes appreciated. No jaundice appreciated. Cardiovascular: Heart is a regular rate and rhythm, no murmurs appreciated on my exam. No significant lower extremity edema. Lungs: On room air, good air movement bilaterally, mild wheezing appreciated on the left. Nontachypneic. Musculoskeletal: Normal muscle mass and tone. No gross joint deformity abnormalities. No effusions appreciated. Neurologic: Awake and alert, oriented. CN II through XII are grossly intact. Speech is fluent. Nonfocal exam. Psychiatric: Appropriate cooperative during my exam. Results & Data Results & Data Vital Signs (Past 12 Hours) Vital Signs Temp Pulse Pulse Pulse Resp BP Pulse Ox 08/31/25 11:24 36.9 C 80 19 147/72 H 93 08/31/25 11:06 08/31/25 07:22 36.7 C 86 19 159/78 H 94 08/31/25 05:50 81 08/31/25 05:34 80 08/31/25 05:32 81 24 97 08/31/25 03:00 85 08/31/25 02:47 36.7 C 83 22 142/71 H 95 Pulse Ox O2 Del Method O2 Del Method O2 Del Method 08/31/25 11:24 Room Air 08/31/25 11:06 Room Air 08/31/25 07:22 Room Air 08/31/25 05:50 08/31/25 05:34 95 Room Air 08/31/25 05:32 Room Air 08/31/25 03:00 94 Room Air 08/31/25 02:47 Room Air PG Care Time/CCT Total # of Minutes Spent Total Time Spent with Patient: Total time spent is greater than 50% in coordination of care (as documented) at patient's floor/unit and/or counseling patient: [place] [address] INT INP/OBS CARE 1/40MIN Patient Type New History Detailed Exam Detailed Medical Decision Making Moderate Complexity Diagnoses COPD exacerbation J44.1 Asthma-chronic obstructive pulmonary disease overlap syndrome J44.9 Peripheral eosinophilia D72.19 Nocturnal hypoxia G47.34
--- NOTE | 2025-08-31 16:36 | Hospitalist Progress Note ---
Date of Service August 31, 2025 Assessment & Plan (1) Acute on chronic respiratory failure with hypoxia and hypercapnia: (2) COPD exacerbation: Plan This patient is an 85-year-old male with a H/o multiple hospital admissions for acute on chronic respiratory failure with hypoxia and hypercarbia, COPD, nocturnal hypoxia, aortic stenosis, nonischemic cardiomyopathy, lumbar facet joint syndrome, BPH with LUTS, carotid artery stenosis, BPH, HTN, GERD, insomnia, peripheral eosinophilia, HLD who was admitted with acute on chronic respiratory failure with hypoxemia and hypercapnia and a COPD exacerbation. #Acute on chronic respiratory failure with hypoxia and hypercapnia/COPD exacerbation-severely acidotic on admission and requiring BiPAP. Rapidly improved with IV steroids, supplemental O2, and noninvasive ventilation. He is now weaned to room air at rest. He typically wears 2 LNC O2 at bedtime. He passed an overnight pulse ox on 2 LNC. VBG on admission with pH 7.15, CO2 89, and repeat ABG after treatment with NIV was 7.37/49/59. He is about to start Nucala treatment with pulmonology for eosinophilia which should help his lungs as well. Appreciate pulmonology consult - Continue steroids but change IV Solu-Medrol to prednisone 40 mg p.o. daily x 5-day course - Continue azithromycin 500 mg IV once daily for 1 more dose for total of 3 days - Continue supplemental O2 at night and will try to get approval for AVAPS at home-trial of AVAPS overnight tonight - Continue Xopenex nebulizers and maintenance inhaler with Breztri on discharge - Start Nucala FRITZ after discharge and follow-up with pulmonology - Continue Singulair #BPH with LUTS-no acute issues -Continue alfuzosin will mash filter cloth changer to tamsulosin, and finasteride #constipation-now resolved after taking MiraLAX and Senokot - Discontinue MiraLAX #Chronic HFmrEF/paroxysmal atrial fibrillation/moderate aortic stenosis/HTN/carotid artery stenosis-no mention of atrial fibrillation cardiology notes but the chart says it was diagnosed many years ago. He is remaining in a sinus rhythm here. Blood pressures are controlled and he is euvolemic. -Continue aspirin, carvedilol, clopidogrel, losartan, simvastatin, and furosemide #GERD- Continue famotidine and pantoprazole #Insomnia-no acute issues - Continue melatonin 9 mg p.o. at bedtime DVT prophylaxis-add Lovenox Dispo-continued stay but likely discharged home on 09/01 Admission and Anticipated Discharge Date Admission Date: August 30, 2025 Subjective Patient feels well today. No shortness of breath. He is ambulating to the bathroom and back without assistance. He is weaned to room air at rest. I discussed his care with pulmonology and case management. Telemetry with normal sinus rhythm and rates in the 80s to 90s Physical Exam Constitutional: WD/WN, vitals as above Respiratory: normal respiratory effort; no cough Auscultation: + diminished lung sounds (Throughout) and + wheezes (Faint expiratory wheezes in upper lung agosto) Cardiovascular: Rate/Rhythm: regular rate and regular rhythm Heart Sounds: + murmur (2/6 DEBBIE at the RUSB) Extremities: no edema Gastrointestinal (Abdomen): normal bowel sounds, soft, nontender, no hepatosplenomegaly Psychiatric: A+Ox3, euthymic affect Results & Data Results & Data Vital Signs (Past 12 Hours) Vital Signs Temp Pulse Pulse Pulse Resp BP Pulse Ox 08/31/25 13:39 86 18 92 08/31/25 12:58 88 08/31/25 11:24 36.9 C 80 19 147/72 H 93 08/31/25 11:06 08/31/25 07:22 36.7 C 86 19 159/78 H 94 08/31/25 05:50 81 08/31/25 05:34 80 08/31/25 05:32 81 24 97 Pulse Ox O2 Del Method O2 Del Method O2 Del Method 08/31/25 13:39 Room Air 08/31/25 12:58 08/31/25 11:24 Room Air 08/31/25 11:06 Room Air 08/31/25 07:22 Room Air 08/31/25 05:50 08/31/25 05:34 95 Room Air 08/31/25 05:32 Room Air Laboratory Results CBC, BMP, LFTs, magnesium, ABG reviewed PG Care Time/CCT Total # of Minutes Spent Total Time Spent with Patient: Total time spent is greater than 50% in coordination of care (as documented) at patient's floor/unit and/or counseling patient: Coding Level of Care Code 62351 SUB INP/OBS CARE 3/50MIN Diagnoses Acute on chronic respiratory failure with hypoxia and hypercapnia J96.21; J96.22 COPD exacerbation J44.1
[2025-08-31] MEDS: ENOXAPARIN INJ 40 MG/0.4 ML SYR SQ SCH (22:52)
[2025-08-31 23:47] VITALS: RESP 19; O2SAT 92
[2025-09-01 06:13] LABS: Hematocrit (blood only) 32.5 % (42.0-52.0); Hemoglobin 10.5 g/dL (14.0-18.0); Immature Granulocytes # (auto) 0.09 K/uL (0.01-0.20); Immature Granulocytes % (auto) 0.7 %; Mean Corpuscular Hemoglobin 28.5 pg (25.0-34.0); Mean Corpuscular Volume 88.3 fL (80.0-100.0); Platelet Count 234 K/uL (130-400); RDW Standard Deviation 46.2 fL (36.4-46.3); Red Blood Count 3.68 M/uL (4.70-6.10); White Blood Count 12.51 K/ul (4.8-10.8)
[2025-09-01 06:30] LABS: Alanine Aminotransferase 9.0 U/L (7-52); Albumin Globulin Ratio 1.5 (0.9-2); Albumin Level 3.5 gm/dl (3.4-5.0); Alkaline Phosphatase 75.0 U/L (34-104); Anion Gap 6.0 (3-11); Bilirubin,Total 0.3 mg/dl (0.2-1.0); Blood Urea Nitrogen 26.0 mg/dl (6-23); Calcium 8.8 mg/dl (8.6-10.3); Carbon Dioxide 30.0 mmol/L (21-32); Chloride 102.0 mmol/L (98-107); Creatinine Clr Calc Pharmacy 42.6 ml/min; Globulin 2.4 gm/dl (2.5-4.0); Glucose 156.0 mg/dl (70-99(Fasting)); Magnesium 2.2 mg/dl (1.7-2.4); Potassium 4.4 mmol/L (3.5-5.1); Sodium 138.0 mmol/L (136-145); Total Protein 5.9 gm/dl (6.0-8.3)
[2025-09-01] MEDS: predniSONE 20 MG TAB PO SCH (09:05)
--- NOTE | 2025-09-01 09:14 | Communication Note ---
Date of Service: September 01, 2025 Patient wore AVAPS last night and tolerated well. Current settings VT 400, RR 16, Epap 5, min pressure 15, max pressure 30, FiO2 40%. Notes-Patient is at risk of deterioration and readmission without HMV. BiPAP was considered and ruled out due to the inability to provide noninvasive ventilation of adequate degree. Due to patients CRF secondary to COPD, patient is at risk of rapid symptom exacerbation and readmission without HMV.
--- NOTE | 2025-09-01 09:23 | Communication Note ---
Date of Service: September 01, 2025 Patient wore AVAPS last night and tolerated well. Current settings as below. Patient is at risk of deterioration and readmission without HMV. BiPAP was c onsidered and ruled out due to the inability to provide noninvasive ventilation of adequate degree. Due to patients CRF secondary to COPD, patient is at risk of rapid symptom exacerbation and readmission without HMV. Mode: AVAPS AE AVAPS Rate: 1-5 cmH20 PS min 6 cmH20 PS max 26 cmH20 EPAP min 4 cmH20 EPAP max 14 cmH20 Max pressure 30 cmH20 Tidal volume: 6-8 ml/kg of ideal body weight BUR: 14 breaths/minute
[2025-09-01 11:08] VITALS: BP 173/82; TEMP 97.5
--- NOTE | 2025-09-01 12:45 | Discharge Summary ---
Discharge Summary Date of Service September 01, 2025 Principal Dx & Hospital Course #1 = Principal Diagnosis (1) Acute on chronic respiratory failure with hypoxia and hypercapnia: (2) COPD exacerbation: Plan This patient is an 85-year-old male with a H/o multiple hospital admissions for acute on chronic respiratory failure with hypoxia and hypercarbia, COPD, nocturnal hypoxia, aortic stenosis, nonischemic cardiomyopathy, lumbar facet joint syndrome, BPH with LUTS, carotid artery stenosis, BPH, HTN, GERD, insomnia, peripheral eosinophilia, HLD who was admitted with acute on chronic respiratory failure with hypoxemia and hypercapnia and a COPD exacerbation. #Acute on chronic respiratory failure with hypoxia and hypercapnia/COPD exacerbation-severely acidotic on admission and requiring BiPAP. Rapidly improved with IV steroids, supplemental O2, and noninvasive ventilation. He is now weaned to room air at rest. He typically wears 2 LNC O2 at bedtime. VBG on admission with pH 7.15, CO2 89, and repeat ABG after treatment with NIV was 7.37/49/59. He is about to start Nucala treatment with pulmonology for eosinophilia which should help his lungs as well. Appreciate pulmonology consult Patient wore AVAPS last night and tolerated well. Current settings as below. Patient is at risk of deterioration and readmission without HMV. BiPAP was considered and ruled out due to the inability to provide noninvasive ventilation of adequate degree. Due to patients CRF secondary to COPD, patient is at risk of rapid symptom exacerbation and readmission without HMV. Mode: AVAPS AE AVAPS Rate: 1-5 cmH20 PS min 6 cmH20 PS max 26 cmH20 EPAP min 4 cmH20 EPAP max 14 cmH20 Max pressure 30 cmH20 Tidal volume: 6-8 ml/kg of ideal body weight BUR: 14 breaths/minute -He received IV Solu-Medrol and then changed to prednisone 40 mg p.o. daily x 5- day course to be finished as an outpatient -He received 3-day course of azithromycin 500 mg IV once daily -Continue AVAPS at home at bedtime and with naps - Continue Xopenex nebulizers and maintenance inhaler with Breztri on discharge - Start Nucala FRITZ after discharge and follow-up with pulmonology - Continue Singulair #BPH with LUTS-no acute issues, UA negative for infection -Continue alfuzosin and finasteride - Follows with urology #constipation-now resolved after taking MiraLAX and Senokot #Chronic HFmrEF/paroxysmal atrial fibrillation/moderate aortic stenosis/HTN/carotid artery stenosis-no mention of atrial fibrillation cardiology notes but the chart says it was diagnosed many years ago. He is remaining in a sinus rhythm here. Blood pressures are controlled and he is euvolemic. -Continue aspirin, carvedilol, clopidogrel, losartan, simvastatin, and furosemi de-refilled his home furosemide on discharge as he had run out #GERD- Continue famotidine and pantoprazole #Insomnia-no acute issues - Continue melatonin at bedtime DVT prophylaxis- Lovenox Dispo-much improved, stable for discharge to home on 05/02 Notes For Next Care Provider Medication Changes From Visit Added prednisone 40 mg p.o. once daily x 4 days Admission HPI Per Admitting Provider The patient is an 85-year-old male with a past medical history including acute on chronic respiratory failure with hypoxia, COPD with exacerbation, lumbar facet joint syndrome, BPH with LUTS, carotid artery stenosis, asthma-COPD overlap syndrome, hypersomnia, and chronic bronchitis. His most recent hospitalization was from 07/12-07/14/2025 with acute on chronic respiratory failure, and upon discharge reports he had gotten back to his baseline breathing state. 2 days ago he developed the beginnings of shortness of breath, and significantly progressed yesterday. Earlier this evening and overnight, he became significantly more short of breath, and patient's family felt he needed to come to the emergency department for assessment. Workup in the emergency department revealed acute on chronic respiratory failure with hypoxia and hypercapnia, patient was given Xopenex nebulizer, Solu-Medrol 125 mg IV, and guaifenesin 60 mg p.o. he was placed on BiPAP, and then referred for evaluation of admission to the [facility]. Discharge Exam Constitutional WD/WN, vitals as above Respiratory normal respiratory effort; no cough Auscultation: + diminished lung sounds (Throughout) and + wheezes (Faint expi ratory wheezes in upper lung agosto) Cardiovascular Rate/Rhythm: regular rate and regular rhythm Heart Sounds: + murmur (2/6 DEBBIE at the RUSB) Extremities: no edema Gastrointestinal (Abdomen) normal bowel sounds, soft, nontender, no hepatosplenomegaly Psychiatric A+Ox3, euthymic affect Discharge Plan Discharge Items Patient Disposition: Home - Self-Care Reason For Visit: ACUTE ON CHRONIC RESP FAIL W/ HYPOXIA/HYPERCAPNEA Discharge Diagnosis: Acute on chronic respiratory failure with hypoxia and hypercarbia COPD exacerbation Condition on Discharge: Serious Activity: Resume your previous activity Non-emergency contact: Primary Care Provider, Medical Review Specialist and Repair Mechanic Call non-emergency contact if: you have any medication questions and your symptoms worsen Follow-up/Referrals: Hollie Proctor MD [Primary Care Provider] - (Follow-up within 1-2 weeks after discharge.) Diet: Low Sodium (2gm) Addtl Attending Provider Instructions: You were admitted with an exacerbation of your COPD which caused high carbon dioxide levels and low oxygen levels. This was treated with a BiPAP machine to help lower your carbon dioxide levels and increase your oxygen levels. You were also given steroids. Fortunately, your insurance has approved for you to have a noninvasive ventilator machine at home to help keep this from happening again. Please make sure you are wearing your ventilator facemask every night at bedtime and anytime you take a nap. Please finish out 4 more days of prednisone 40 mg daily. Please start on the Nucala prescribed by Dr. Interiano as soon as possible and follow-up with him in the clinic within 1 month. It was a pleasure taking care of you! If you have any questions about your care before your hospital follow-up visit with your primary care provider, please call [phone] and ask to be transferred to the [facility] Medicine office. Sincerely, Tiffany Duran M.D. Pending Studies at Discharge: No Stand-Alone Forms: My [facility] Medications and DC Order Prescriptions: New prednisone 20 mg Tablet 40 mg PO QAM Qty: 8 0RF Continued magnesium oxide 400 mg magnesium capsule 400 mg PO QAM Qty: 0 telmisartan [Micardis] 40 mg tablet 40 mg PO QAM Qty: 90 3RF sildenafil 100 mg tablet 100 mg PO DAILY PRN (Reason: sexual activity) Qty: 20 11RF Rx Instructions: administer 30 minutes to 4 hours before activity simvastatin 20 mg tablet 20 mg PO DAILY 90 Days Qty: 90 2RF pantoprazole 40 mg tablet,delayed release (DR/EC) 40 mg PO QAM 90 Days Qty: 90 4RF montelukast [Singulair] 10 mg tablet 10 mg PO HS Qty: 90 3RF carvedilol 6.25 mg tablet 6.25 mg PO BID Qty: 180 3RF Rx Instructions: must administer with a meal/food duloxetine 60 mg capsule,delayed release(DR/EC) 60 mg PO DAILY Qty: 90 3RF Nucala 100 mg/mL auto-injector 100 mg subcut Q4WK Qty: 1 5RF aspirin 81 mg tablet,delayed release (DR/EC) 81 mg PO DAILY (DME) nebulizers Misc See Rx Instructions .ROUTE .MEDSUPPLY Qty: 1 0RF Rx Instructions: Q 4HR WITH TUBING & SUPPLIES - DX: COPD finasteride 5 mg tablet 5 mg PO DAILY Qty: 90 3RF Breztri Aerosphere 160-9-4.8 mcg/actuation HFA aerosol inhaler 2 inh inhalation BID Qty: 10.7 12RF alfuzosin 10 mg tablet extended release 24 hr 10 mg PO DAILY Qty: 90 3RF Rx Instructions: administer after the same meal each day albuterol sulfate [Ventolin HFA] 90 mcg/actuation HFA aerosol inhaler 2 inh inhalation Q4H PRN (Reason: shortness of breath) Qty: 8.5 3RF levalbuterol HCl 1.25 mg/3 mL solution for nebulization 1.25 mg INHALATION Q4H PRN (Reason: Shortness Of Breath Or Wheezing) Qty: 90 3RF (DME) Portable Oxygen Misc See Rx Instructions .MEDSUPPLY Qty: 1 0RF Rx Instructions: Oxygen 2 liters continuous via nasal cannula on exertion with portable concentrator. KAELYN 99 Multivitamin 50 Plus Tablet 1 tab PO DAILY clopidogrel 75 mg Tablet 75 mg PO QAM 30 Days Qty: 30 3RF famotidine [Pepcid] 20 mg Tablet 20 mg PO HS cholecalciferol (vitamin D3) [Vitamin D3] 125 mcg (5,000 unit) tablet 125 mcg PO DAILY Qty: 30 0RF potassium citrate 99 mg Capsule 99 mg PO DAILY PreserVision AREDS-2 250-90-40-1 mg Capsule 1 tab PO BID celecoxib 50 mg capsule 50 mg PO BID PRN (Reason: Pain) Systane (PF) 0.4-0.3 % Dropperette 1 drp OPB BID melatonin 10 mg Tablet 10 mg PO HS furosemide 20 mg tablet 20 mg PO DAILY Qty: 90 0RF Discharge Orders: Discharge Order (Routine); Ordered 09/01/25 Ordered By: Tiffany Duran Admission Data Admit Date/Time: 08/30/25 02:21 Attending Provider: Tiffany Duran Admit Provider: Chip Novak Primary Care Provider: Hollie Proctor Other Providers: Chip Novak; [facility] Stay Data Consultations 08/30/25 01:58 ED Decision to Admit Stat 08/30/25 18:18 Consult Pulmonology Routine Pending Results Patient Have Any Pending Studies at Discharge: No Discharge Instructions Given to Patient (Per Discharging Provider) You were admitted with an exacerbation of your COPD which caused high carbon dioxide levels and low oxygen levels. This was treated with a BiPAP machine to help lower your carbon dioxide levels and increase your oxygen levels. You were also given steroids. Fortunately, your insurance has approved for you to have a noninvasive ventilator machine at home to help keep this from happening again. Please make sure you are wearing your ventilator facemask every night at bedtime and anytime you take a nap. Please finish out 4 more days of prednisone 40 mg daily. Please start on the Nucala prescribed by Dr. Interiano as soon as possible and follow-up with him in the clinic within 1 month. It was a pleasure taking care of you! If you have any questions about your care before your hospital follow-up visit with your primary care provider, please call [phone] and ask to be trans ferred to the [facility] Medicine office. Sincerely, Tiffany Duran M.D. Total Time Total Time Spent Total Time Spent (In Minutes): 35 minutes Total Time Includes: Examination of the Patient, Discharge Planning, Medication Reconciliation, Communication With Other Providers (Pulm nodule, patient case manager) and Other Coding Level of Care Code 50741 INP/OBS DISCH >30 MIN Diagnoses Acute on chronic respiratory failure with hypoxia and hypercapnia J96.21; J96.22 COPD exacerbation J44.1
[2025-09-01 12:57] VITALS: PULSE 83
== END 2025-09-01 13:57 | disposition home or self-care (01) | DRG 189 ==
LOC: ED 00:55 → SUATTDRO 02:21 → 4W 02:21